=== PATIENT | male | born 1955 | race Caucasian/White ===

== ENCOUNTER 2016-06-26 11:49 | Outpatient (RCR) | payer OTHER ==
--- OUTSIDE RECORDS SUMMARY | 2016-04-23 11:00 | XMS REPORT | Continuity of Care Document ---
Author Author [facility] Organization [facility] Address Unknown Phone Unavailable Care Team Providers Care Reimbursement Auditor Name Role Phone Tish Cox PCP [phone] Source Comments Some departments are not documenting in the electronic medical record. If you do not see the information that you expected, contact Release of Information in the Health Information Management department at [phone] for further assistance in locating additional records.[facility] Active Allergies and Adverse Reactions Allergen Noted Date Severity Reactions Comments Amoxicillin (Bulk) 12/17/2010 Low STOMACH UPSET, NAUSEA AND Pt reported able to VOMITING tolerate for short term Current Medications Prescription Sig. Disp. Refills Start End Date Status Date budesonide/formoterol,+, Inhale 2 Puffs by mouth Active (SYMBICORT) 160/4.5 mcg twice daily. HFAA inhalation ipratropium/albuterol Inhale 2 Puffs by mouth Active (COMBIVENT) 103/18 As Needed for Wheezing. mcg/Actuation inhaler MULTIVITAMIN Take 1 Tab by mouth Active W-MINERALS/LUTEIN daily. (CENTRUM SILVER PO) albuterol (ACCUNEB) 0.63 Inhale 0.63 mg solution Active mg/3 mL nebulizer as directed every 6 hours solution as needed. zolpidem (AMBIEN) 5 mg Take 5 mg by mouth at Active tablet bedtime as needed. fluticasone (FLONASE) 50 Apply 2 Sprays to each 3 Inhaler 3 07/28/19 Active mcg/actuation nasal spray nostril as directed 15 daily. predniSONE (DELTASONE) 1 Take 1 Tab by mouth 60 Tab 1 11/02/19 Active mg tablet daily. To be taken with 15 other 5mg prednisone tablets. Will taper from 15mg by 1mg every 2 weeks to a goal of 10mg daily LORATADINE (CLARITIN PO) Take 1 Tab by mouth daily Active as needed. ERGOCALCIFEROL (VITAMIN Take 2 Units by mouth Active D2) (VITAMIN D PO) daily. acetaminophen (TYLENOL) Take 500 mg by mouth Active 500 mg tablet every 6 hours as needed for Pain. pantoprazole DR Take 40 mg by mouth Active (PROTONIX) 40 mg tablet daily. potassium chloride(+) Take 16 mEq by mouth Active (KLOR-CON 8) 8 mEq tablet daily. omalizumab(+) (XOLAIR) Inject into area(s) as Active 150 mg injection directed every 14 days. lisinopril-hydrochlorothi Take 1 Tab by mouth Active azide (PRINZIDE, daily. ZESTORETIC) 20-25 mg tablet HYDROcodone/acetaminophen Take 1-2 Tabs by mouth Active (NORCO; VICODIN) 5-325 mg every 8 hours as needed tablet for Pain (Pt reports that he is taking 2 tabs total per day) immune globulin 10% 25 grams IV daily for 25 g 6 10/13/19 Active (GAMUNEX) 10 g/100 mL in four days, then every 4 16 0 mL IV infusion weeks for 3 months. fluticasone (FLOVENT HFA) Inhale 2 Puffs by mouth Active 110 mcg/actuation inhaler into the lungs twice daily. teriparatide(+) (FORTEO) Inject 20 mcg under the Active 20 mcg/dose - 600 mcg/2.4 skin daily. mL pnij injection pen baclofen (LIORESAL) 10 mg Take 10 mg by mouth three Active tablet times daily as needed. CALCIUM PO Take 2 Tabs by mouth Active daily. amitriptyline (ELAVIL) 10 Take 1 Tab by mouth at 30 Tab 2 03/11/20 Active mg tablet bedtime as needed. 16 voriconazole (VFEND) 200 Take 1 Tab by mouth twice 60 Tab 7 08/21/19 04/17/20 mg tablet daily for 240 days. 16 16 Hospital, Clinic, or Ordered Dose Route Frequency Start End Date Status Other Facility Date Administered Medication omalizumab (XOLAIR) 225MG SC Q14 Days 10/15/19 Active injection 225 mg 15 Active Problems Problem Noted Date Compression fracture 05/11/2015 Shortness of breath 05/11/2015 GI bleed 09/30/2014 Sepsis (HCC) 2014 Disseminated histoplasmosis 2014 Acute respiratory failure (HCC) 04/02/2014 Pancytopenia (HCC) 03/31/2014 Osteoarthritis 03/21/2011 Paraesthesia of skin 03/19/2011 alf current use of systemic steroids 03/19/2011 Joint pain 12/17/2010 Encounter for long-term (current) use of high-risk medication 12/17/2010 Encounter for long-term (current) use of steroids 12/17/2010 Vasculitis (HCC) 12/17/2010 Peripheral edema 12/17/2010 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 Most Recent Encounters Date Type Specialty Providers Description 04/19/2016 Orders Only Allergy,Immunology and Felipe Mancia MD Rheumatology 04/19/2016 Orders Only Allergy,Immunology and Pedro Feldman MD Vasculitis ([facility]) Rheumatology 04/12/2016 Telephone Allergy,Immunology and Felipe Mancia MD Records Request - paper Rheumatology chart [facility] 04/11/2016 [facility] Felipe Mancia MD Arteritis, unspecified Encounter 04/11/2016 Office Visit Allergy,Immunology and Felipe Mancia MD Vasculitis ([facility]) (Primary Rheumatology Dx); Osteopenia; 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HCC); Encounter for long-term (current) use of high-risk medication; Disseminated histoplasmosis 04/08/2016 Outpt. Infectious Diseases Tyshawn Putnam MD Antibiotic Therapy 03/29/2016 Outpt. Infectious Diseases Tyshawn Putnam MD Antibiotic Therapy 03/25/2016 Telephone Allergy,Immunology and Zara Flores APRN Infusion Therapy Rheumatology 03/20/2016 Telephone Allergy,Immunology and Felipe Mancia MD Prior Authorization - Rheumatology [facility] 03/14/2016 Outpt. Infectious Tyshawn Wong MD Antibiotic Therapy 03/12/2016 Telephone Allergy,Immunology and Felipe Mancia MD Infusion Therapy - IVIG; Rheumatology 03/11/2016 Office Visit Infectious Tyshawn Wong MD Disseminated histoplasmosis (Primary Dx); 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HCC); Compression fracture; Encounter for long-term (current) use of antibiotics 03/01/2016 Telephone Allergy,Immunology and Felipe Mancia MD Infusion Therapy - IVIG Rheumatology 02/26/2016 Telephone Allergy,Immunology and Felipe Mancia MD Infusion Therapy; Rheumatology 02/08/2016 Telephone AllergyImmunology and Felipe Mancia MD Infusion Therapy - IVIG Rheumatology 01/25/2016 Outpt. Infectious Diseases Tyshawn Putnam MD Antibiotic Therapy 01/23/2016 Outpt. Infectious Diseases Tyshawn Putnam MD Antibiotic Therapy Immunizations Name Dates Previously Given Next Due Pneumococcal Vaccine 07/28/2014 (23-Guerita Adult) Pneumococcal 06/01/2013 Vaccine(13-Gu[facility] Peds/immunocompromised adult) Social History Tobacco Use Types Packs/Day Years Used Date Former Smoker Cigarettes 0.5 20 Quit: 06/30/1993 Smokeless Tobacco: Never Used Alcohol Use Drinks/Week oz/Week Comments No 0 Standard 0.0 drinks or equivalent Last Filed Vital Signs Vital Sign Reading Time Taken Blood Pressure 122/80 04/11/2016 9:58 AM CDT Pulse 118 04/11/2016 9:58 AM CDT Temperature 36.7 C (98 F) 04/11/2016 9:58 AM CDT Respiratory Rate 20 04/11/2016 9:58 AM CDT Height 1.778 m (5' 10") 04/11/2016 9:58 AM CDT Weight 94.802 kg (209 lb) 04/11/2016 9:58 AM CDT Body Mass Index 29.99 04/11/2016 9:58 AM CDT Oxygen Saturation 95% 10/03/2014 2:30 PM CDT Plan of Care Date Type Specialty Providers Description 07/02/2016 Appointment Endocrinology, Metabolism & Genetics 08/02/2016 Appointment Allergy,Immunology and Felipe Mancia MD Rheumatology [address] [place] [address] [phone] 08/12/2016 Appointment Infectious Diseases Tyshawn Putnam MD [address] [facility] [address] [place] [address] [phone] (Fax) Health Maintenance Due Date Last Done Comments Hepatitis C Screening 1955 Physical (Comprehensive) 1962 Exam Pertussis Vaccine 1966 Tetanus Vaccine 1972 Colorectal Cancer 2005 Screening Shingles Vaccine 2015 Influenza Vaccine 02/29/2016 Results from Last 3 Months 2-D + DOPPLER ECHOCARDIOGRAM (04/16/2016)CBC AND DIFF (04/11/2016 1:13 PM) Component Value Range White Blood Cells 13.3 (H) 4.5-11.0 K/UL RBC 4.23 (L) 4.4-5.5 M/UL Hemoglobin 12.1 (L) 13.5-16.5 GM/DL Hematocrit 36.1 (L) 40-50 % MCV 85.3 80-100 FL MCH 28.6 26-34 PG MCHC 33.5 32.0-36.0 G/DL RDW 16.0 (H) 11-15 % Platelet Count 213 150-400 K/UL MPV 7.4 7-11 FL Neutrophils 82 (H) 41-77 % Lymphocytes 11 (L) 24-44 % Monocytes 7 4-12 % Eosinophils 0 0-5 % Basophils 0 0-2 % Absolute Neutrophil Count 10.90 (H) 1.8-7.0 K/UL Absolute Lymph Count 1.50 1.0-4.8 K/UL Absolute Monocyte Count 0.90 (H) 0-0.80 K/UL Absolute Eosinophil Count 0.00 0-0.45 K/UL Absolute Basophil Count 0.00 0-0.20 K/UL Specimen Blood C REACTIVE PROTEIN (CRP) (04/11/2016 1:13 PM) Component Value Range C-Reactive Protein 1.55 (H) <1.0 MG/DL Specimen Blood SED RATE (04/11/2016 1:13 PM) Component Value Range Sed Rate -ESR 66 (H) 0-20 MM/HR Specimen Blood POC URINE DIPSTICK AUTO READ (04/09/2016) Component Value Range Urine Glucose POC 100 Urine Bilirubin POC negative Urine Ketone POC negative Urine Specific [place] 1.025 POC Urine Blood POC negative Urine PH POC 5 Urine Protein POC negative Urine Urobilinogen POC 1 mg/dL Urine Nitrite POC negative Urine Leukocytes POC negative Specimen Urine, clean catch - Urine BUN (03/27/2016 9:36 AM)Only the most recent of 2 results within the time period is included. Component Value Range Blood Urea Nitrogen 32 Specimen Blood ALT (SGPT) (03/27/2016 9:36 AM)Only the most recent of 2 results within the time period is included. Component Value Range ALT (SGPT) 31 Specimen Blood AST (SGOT) (03/27/2016 9:36 AM)Only the most recent of 2 results within the time period is included. Component Value Range AST (SGOT) 22 Specimen Blood POTASSIUM (03/27/2016 9:36 AM)Only the most recent of 2 results within the time period is included. Component Value Range Potassium 4.9 Specimen Blood ALK PHOS TOTAL (03/27/2016 9:36 AM)Only the most recent of 2 results within the time period is included. Component Value Range Alk Phosphatase 99 Specimen Blood CREATININE (03/27/2016 9:36 AM)Only the most recent of 2 results within the time period is included. Component Value Range Creatinine 1.2 Specimen Blood VORICONAZOLE, SERUM (03/27/2016)Only the most recent of 3 results within the time period is included. Specimen Blood HISTOPLASMA AG, SERUM (03/27/2016)Only the most recent of 3 results within the time period is included. Specimen Blood
[2016-04-23 11:34] LABS: BILIRUBIN,TOTAL 0.4 MG/DL (0.1-1.0); CALCIUM 9.6 MG/DL (8.5-10.1); CREATININE SERUM 1.53 MG/DL (0.60-1.30); POTASSIUM 4.4 MMOL/L (3.6-5.0); TOTAL PROTEIN 8.5 G/DL (6.4-8.2)
[2016-04-29 06:32] LABS: HISTOPLASMA AG SERUM 1.42 ng/mL (0.00-0.00)
[2016-05-29 11:20] LABS: ALBUMIN 4.3 G/DL (3.2-4.5); BILIRUBIN,TOTAL 0.4 MG/DL (0.1-1.0); CALCIUM 9.8 MG/DL (8.5-10.1); CREATININE SERUM 1.43 MG/DL (0.60-1.30); POTASSIUM 4.5 MMOL/L (3.6-5.0); TOTAL PROTEIN 7.7 G/DL (6.4-8.2)
[2016-06-05 15:11] LABS: HISTOPLASMA AG SERUM Positive (None Detected)
[2016-06-10 16:12] LABS: VORICONAZOLE QT 2.6 UG/ML (1.0-6.0)
[~2016-06-26 11:49] MED LIST: ALBU0.632 IH; BRIM5DRO12 OU; BUDE6HFA INH; DXCC100C PO; FAMO20TA13 PO; FAMO20TA17 PO; FLT4413 INH; GUAI120L56 PO; IPRA4AER INH; LACT1CAP71 PO; LEVO500T69 PO; LOPE2CAP PO; MULT-974 PO; MYCO500T PO; PRD20T PO; PRED10TA PO; PRED5TAB PO; RT-FLOV110 INH; TEST1PAT7 TD; [UNRECOGNIZED DRUG - OTHER] IV
[2016-06-26 12:24] LABS: ALANINE AMINOTRANSFERASE 23 U/L (0-55); ALBUMIN 4.1 G/DL (3.2-4.5); ANION GAP 11 MMOL/L (5-14); ASPARTATE AMINO TRANSFERASE 20 U/L (5-34); BILIRUBIN,TOTAL 0.4 MG/DL (0.1-1.0); BLOOD UREA NITROGEN 23 MG/DL (7-18); BUN/CREATININE RATIO 21; CALCIUM 9.4 MG/DL (8.5-10.1); CARBON DIOXIDE 26 MMOL/L (21-32); CHLORIDE 100 MMOL/L (98-107); CREATININE SERUM 1.12 MG/DL (0.60-1.30); GFR ESTIMATED > 60; GLUCOSE 124 MG/DL (70-105); POTASSIUM 4.6 MMOL/L (3.6-5.0); SODIUM 137 MMOL/L (135-145); TOTAL PROTEIN 7.3 G/DL (6.4-8.2)
[2016-07-02 07:42] LABS: VORICONAZOLE QT 2.2 UG/ML (1.0-6.0)
[2016-07-02 08:01] LABS: HISTOPLASMA AG SERUM Positive (None Detected)
== END 2016-07-22 | disposition home or self-care (01) ==
LOC: LAB 11:49
PROVIDERS: ATTEND Internal Medicine Infectious Disease
DX: B39.9 Histoplasmosis, unspecified (principal); Z79.2 Long term (current) use of antibiotics
CPT/HCPCS: 36415; 80053; 80299; 87385

== ENCOUNTER 2016-07-16 09:19 | Outpatient (RCR) | payer OTHER ==
--- OUTSIDE RECORDS SUMMARY | 2016-04-23 11:14 | XMS REPORT | Continuity of Care Document ---
Author Author [facility] Organization [facility] Address Unknown Phone Unavailable Care Team Providers Care Wrapper Counter Name Role Phone Tish Cox PCP [phone] Source Comments Some departments are not documenting in the electronic medical record. If you do not see the information that you expected, contact Release of Information in the Health Information Management department at [phone] for further assistance in locating additional records.[facility] Active Allergies and Adverse Reactions Allergen Noted [...] 03/31/2014 Osteoarthritis 03/21/2011 Paraesthesia of skin 03/19/2011 senior living current use of systemic steroids 03/19/2011 Joint pain 12/17/2010 Encounter for long-term (current) use of high-risk medication 12/17/2010 Encounter for long-term (current) use of steroids 12/17/2010 Vasculitis (HCC) 12/17/2010 Peripheral edema 12/17/2010 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 Felipe Mancia MD Arteritis, unspecified Encounter 04/11/2016 Office Visit Allergy,Immunology and Felipe Mancia MD Vasculitis ([facility]) (Primary Rheumatology Dx); Osteopenia; 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HCC); [...] Allergy,Immunology and Felipe Mancia MD Rheumatology [address] [place] [address] [phone] 08/12/2016 Appointment Infectious Diseases Tyshawn Putnam MD [address] [facility] [address] [place] [address] [phone] (Fax) Health Maintenance Due Date Last Done [...] negative Urine Ketone POC negative Urine Specific [place] 1.025 POC Urine Blood POC negative Urine [...]
[2016-04-23] MEDS: OMALIZUMAB SUB-Q 150 MG (XOLAIR) VIAL SQ SCH (12:15)
[2016-04-23 13:02] VITALS: BP 127/77
[2016-05-07] MEDS: OMALIZUMAB SUB-Q 150 MG (XOLAIR) VIAL SQ SCH (10:20)
[2016-05-07 11:09] VITALS: BP 150/83
[2016-05-21 10:33] VITALS: BP 123/79
[2016-05-21] MEDS: OMALIZUMAB SUB-Q 150 MG (XOLAIR) VIAL SQ SCH (10:44)
[2016-06-04] MEDS: OMALIZUMAB SUB-Q 150 MG (XOLAIR) VIAL SQ SCH (10:45)
[2016-06-04 10:49] VITALS: BP 144/94
[2016-06-18] MEDS: OMALIZUMAB SUB-Q 150 MG (XOLAIR) VIAL SQ SCH (10:17)
[2016-06-18 10:39] VITALS: BP 105/77
[2016-07-03] MEDS: OMALIZUMAB SUB-Q 150 MG (XOLAIR) VIAL SQ SCH (11:40)
[2016-07-03 11:46] VITALS: BP 114/85
[~2016-07-16] VITALS: Ht 177.8 cm; Wt 102.5 kg
[2016-07-16] MEDS ORDERED: OMALIZUMAB SUB-Q 150 MG (XOLAIR) VIAL SQ SCH (09:30)
[2016-07-16 10:04] VITALS: BP 117/73
== END 2016-07-22 | disposition home or self-care (01) ==
LOC: SDC 09:19
PROVIDERS: ATTEND Internal Medicine Critical Care Medicine
DX: M31.30 Wegener's granulomatosis without renal involvement (principal); R91.1 Solitary pulmonary nodule; E66.9 Obesity, unspecified; D61.818 Other pancytopenia; R94.5 Abnormal results of liver function studies
CPT/HCPCS: 96372

== ENCOUNTER → 2016-08-05 | Outpatient (CLI) | payer OTHER ==
--- OUTSIDE RECORDS SUMMARY | 2016-08-05 09:52 | XMS REPORT | Continuity of Care Document ---
Author Author [facility] Organization [facility] Address Unknown Phone Unavailable Care Team Providers Care Roll Up Machine Operator Name Role Phone Tish Cox PCP [phone] Source Comments Some departments are not documenting in the electronic medical record. If you do not see the information that you expected, contact Release of Information in the Health Information Management department at [phone] for further assistance in locating additional records.[facility] Active Allergies and Adverse Reactions Allergen [...] 2014 Disseminated histoplasmosis 2014 Acute respiratory failure ([facility]) 04/02/2014 Pancytopenia ([facility]) 03/31/2014 Osteoarthritis 03/21/2011 Paraesthesia of skin 03/19/2011 senior care current use of systemic steroids 03/19/2011 Joint pain 12/17/2010 Encounter for long-term (current) use of high-risk medication 12/17/2010 Encounter for long-term (current) use of steroids 12/17/2010 Vasculitis ([facility]) 12/17/2010 Peripheral edema 12/17/2010 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 Tyshawn Maloney MD Antibiotic Therapy 06/13/2016 Telephone Tyshawn Maloney MD Outpatient Antibiotic Therapy (Opat) 06/11/2016 Telephone Allergy,Immunology and Felipe Mancia MD Infusion Therapy - IVIG; Rheumatology 06/07/2016 Outpt. Tyshawn Maloney MD Antibiotic Therapy 06/05/2016 Outpt. Tyshawn Maloney MD Antibiotic Therapy 05/29/2016 Telephone Tyshawn Maloney MD Medication Question 05/28/2016 Telephone Tyshawn Maloney MD Prior Authorization 05/11/2016 Outpt. Tyshawn Maloney MD Antibiotic Therapy 05/10/2016 Telephone Allergy,Immunology and Felipe Mancia MD Home Health Patient Rheumatology Update Immunizations Name Dates Previously Given Next Due Pneumococcal Vaccine 08/02/2016, 07/28/2014 (23-Guerita Adult) Pneumococcal 06/01/2013 Vaccine(13-Guerita Peds/immunocompromised adult) Social History Tobacco Use Types Packs/Day Years Used Date Former Smoker Cigarettes 0.5 20 Quit: 06/30/1993 Smokeless Tobacco: Never Used Alcohol Use Drinks/Week oz/Week Comments No 0 Standard 0.0 drinks or equivalent Last Filed Vital Signs Vital Sign Reading Time Taken Blood Pressure 126/81 08/02/2016 10:09 AM CONSTRUCTION MANAGEMENT INSTRUCTOR Pulse 92 08/02/2016 10:09 AM CONSTRUCTION MANAGEMENT INSTRUCTOR Temperature 36.6 C (97.9 F) 08/02/2016 10:09 AM CONSTRUCTION MANAGEMENT INSTRUCTOR Respiratory Rate 18 08/02/2016 10:09 AM CONSTRUCTION MANAGEMENT INSTRUCTOR Height 1.778 m (5' 10") 08/02/2016 10:09 AM CONSTRUCTION MANAGEMENT INSTRUCTOR Weight 92.534 kg (204 lb) 08/02/2016 10:09 AM CONSTRUCTION MANAGEMENT INSTRUCTOR Body Mass Index 29.27 08/02/2016 10:09 AM CONSTRUCTION MANAGEMENT INSTRUCTOR Oxygen Saturation 95% 10/03/2014 2:30 PM CDT Plan of Care Date Type Specialty Providers Description 08/12/2016 Appointment Infectious Diseases Tyshawn Putnam MD [address] [place] [address] [phone] (Fax) 10/28/2016 Appointment Allergy,Immunology and LarimerFelipe gunderson MD Rheumatology [address] [place] [address] [phone] Health Maintenance Due Date Last Done Comments Hepatitis C Screening 1955 Physical (Comprehensive) 1962 Exam Pertussis Vaccine 1966 Tetanus Vaccine 1972 Colorectal Cancer 2005 Screening Shingles Vaccine 2015 Influenza Vaccine 02/29/2016 Results from Last 3 Months URINALYSIS, MICROSCOPIC (08/02/2016 12:42 PM) Component Value Range WBCs,UA 0-2 0-2 /HPF RBCs,UA 0-2 0-3 /HPF Specimen Urine URINALYSIS DIPSTICK (08/02/2016 12:42 PM) Component Value Range Color,UA YELLOW Turbidity,UA CLEAR CLEAR-CLEAR Specific [place]-Urine 1.024 1.003-1.035 pH,UA 7.0 5.0-8.0 Protein,UA 1+ (A) NEG-NEG Glucose,UA 2+ (A) NEG-NEG Ketones,UA NEG NEG-NEG Bilirubin,UA NEG NEG-NEG Blood,UA NEG NEG-NEG Urobilinogen,UA NORMAL NORM-NORMAL Nitrite,UA NEG NEG-NEG Leukocytes,UA NEG NEG-NEG Urine Ascorbic Acid, UA NEG NEG-NEG Specimen Urine PROTEIN/CR RATIO,UR RAN (08/02/2016 12:40 PM) Component Value Range Protein, Random 33 MG/DL Creatinine, Random 166 MG/DL Protein/CR ratio 0.2 Specimen Urine COMPREHENSIVE METABOLIC PANEL (08/02/2016 12:40 PM) Component Value Range Sodium 139 137-147 MMOL/L Potassium 4.6 3.5-5.1 MMOL/L Chloride 100 98-110 MMOL/L Glucose 117 (H) 70-100 MG/DL Blood Urea Nitrogen 25 7-25 MG/DL Creatinine 1.21 0.4-1.24 MG/DL Calcium 10.0 8.5-10.6 MG/DL Total Protein 7.7 6.0-8.0 G/DL Total Bilirubin 0.4 0.3-1.2 MG/DL Albumin 4.0 3.5-5.0 G/DL Alk Phosphatase 75 25-110 U/L AST (SGOT) 17 7-40 U/L CO2 29 21-30 MMOL/L ALT (SGPT) 19 7-56 U/L Anion Gap 10 3-12 eGFR Non >60Comment: >60 mL/min The eGFR is not validated for use in drug dosing adjustments. Continue to use estimated creatinine clearance per dosing reference text. Please contact the Clinical Pharmacist for questions. eGFR >60Comment: >60 mL/min The eGFR is not validated for use in drug dosing adjustments. Continue to use estimated creatinine clearance per dosing reference text. Please contact the Clinical Pharmacist for questions. Specimen Blood CBC AND DIFF (08/02/2016 12:40 PM) Component Value Range White Blood Cells 17.7 (H) 4.5-11.0 K/UL RBC 4.43 4.4-5.5 M/UL Hemoglobin 12.7 (L) 13.5-16.5 GM/DL Hematocrit 38.1 (L) 40-50 % MCV 85.9 80-100 FL MCH 28.7 26-34 PG MCHC 33.4 32.0-36.0 G/DL RDW 15.8 (H) 11-15 % Platelet Count 273 150-400 K/UL MPV 7.2 7-11 FL Neutrophils 86 (H) 41-77 % Lymphocytes 10 (L) 24-44 % Monocytes 4 4-12 % Eosinophils 0 0-5 % Basophils 0 0-2 % Absolute Neutrophil Count 15.10 (H) 1.8-7.0 K/UL Absolute Lymph Count 1.80 1.0-4.8 K/UL Absolute Monocyte Count 0.60 0-0.80 K/UL Absolute Eosinophil Count 0.00 0-0.45 K/UL Absolute Basophil Count 0.10 0-0.20 K/UL Specimen Blood C REACTIVE PROTEIN (CRP) (08/02/2016 12:40 PM) Component Value Range C-Reactive Protein 0.71 <1.0 MG/DL Specimen Blood SED RATE (08/02/2016 12:40 PM) Component Value Range Sed Rate -ESR 38 (H) 0-20 MM/HR Specimen Blood HISTOPLASMA AG, SERUM (06/26/2016)Only the most recent [...]
--- NOTE | 2016-08-05 11:11 | Diagnostic Imaging Report ---
PROCEDURE: CT chest without contrast. TECHNIQUE: Multiple contiguous axial images were obtained through the chest without the use of intravenous contrast. INDICATION: Followup pulmonary nodule. FINDINGS: There is an 8mm pulmonary nodule in the left upper lobe, image 18 stable from 07/14/2015 and with stability from 2014 exam compatible with benign etiology. There is no significant consolidation, mass or suspicious nodule seen otherwise. There is no mediastinal mass. There is no mediastinal lymphadenopathy. No hilar mass or lymphadenopathy is identified. The axilla demonstrate no mass lesion. Sections in the upper abdomen appear unremarkable. The osseous structures demonstrate kyphoplasty changes in the mid and lower thoracic spine and in the upper lumbar vertebra visualized. IMPRESSION: Stable 8mm nodule in the left upper lobe from 2014 exam compatible with benign etiology. Dictated by: Dictated on workstation # [id number]
== END ==
LOC: RAD 09:47
PROVIDERS: ATTEND Nurse Practitioner Family
DX: R91.1 Solitary pulmonary nodule (principal); M30.1 Polyarteritis with lung involvement [Churg-Strauss]
CPT/HCPCS: 71250

== ENCOUNTER 2016-08-13 11:16 | Outpatient (RCR) | payer OTHER ==
--- OUTSIDE RECORDS SUMMARY | 2016-07-30 10:10 | XMS REPORT | Continuity of Care Document ---
Author Author [facility] Organization [facility] Address Unknown Phone Unavailable Care Team Providers Care Lumber Tailer Name Role Phone Tish Cox PCP [phone] Source Comments Some departments are not documenting in the electronic medical record. If you do not see the information that you expected, contact Release of Information in the Health Information Management department at [phone] for further assistance in locating additional records.[facility] Active Allergies and Adverse Reactions Allergen [...] 1 Tab by mouth twice 60 Tab 5 05/29/20 01/25/20 Active mg tablet daily for 240 days. 16 17 Hospital, Clinic, or Ordered Dose Route Frequency Start End Date Status Other Facility Date Administered Medication omalizumab (XOLAIR) 225mg SC Q14 Days 10/15/19 Active injection 225 mg 15 Active Problems Problem Noted Date Compression fracture 05/11/2015 Shortness of breath 05/11/2015 GI bleed 09/30/2014 Sepsis (HCC) 2014 Disseminated histoplasmosis 2014 Acute respiratory failure ([facility]) 04/02/2014 Pancytopenia ([facility]) 03/31/2014 Osteoarthritis 03/21/2011 Paraesthesia of skin 03/19/2011 long-term current use of systemic steroids 03/19/2011 Joint pain 12/17/2010 Encounter for long-term (current) use of high-risk medication 12/17/2010 Encounter for long-term (current) use of steroids 12/17/2010 Vasculitis ([facility]) 12/17/2010 Peripheral edema 12/17/2010 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 Infectious Diseases Tyshawn Putnam MD Antibiotic Therapy 06/13/2016 Telephone Tyshawn Maloney MD Outpatient Antibiotic Therapy (Opat) 06/11/2016 Telephone AllergyImmunology and Felipe Mancia MD Infusion Therapy - IVIG; Rheumatology 06/07/2016 Outpt. Infectious Tyshawn Wong MD Antibiotic Therapy 06/05/2016 Outpt. Infectious Tyshawn Wong MD Antibiotic Therapy 05/29/2016 Telephone Tyshawn Maloney MD Medication Question 05/28/2016 Telephone Tyshawn Maloney MD Prior Authorization 05/11/2016 Outpt. Infectious Tyshawn Wong MD Antibiotic Therapy 05/10/2016 Telephone Allergy,Immunology and Felipe Mancia MD Home Health Patient Rheumatology Update 05/02/2016 Telephone Allergy,Immunology and Felipe Mancia MD Infusion Therapy - IVIG Rheumatology Immunizations Name Dates Previously Given Next Due [...] of Care Date Type Specialty Providers Description 08/02/2016 Appointment Endocrinology, Metabolism & Genetics 08/02/2016 Appointment Allergy,Immunology and [place] gund[place] MD Rheumatology [address] [place] [address] [phone] 08/12/2016 Appointment Infectious Diseases Tyshawn Putnam MD [address] [place] [address] [phone] (Fax) Health Maintenance Due Date Last Done Comments Hepatitis C Screening 1955 Physical (Comprehensive) 1962 Exam Pertussis Vaccine 1966 Tetanus Vaccine 1972 Colorectal Cancer 2005 Screening Shingles Vaccine 2015 Influenza Vaccine 02/29/2016 Results from Last 3 Months HISTOPLASMA AG, SERUM (06/26/2016)Only the most recent of 2 results within the time period is included. Specimen Blood VORICONAZOLE LC-MS/MS (06/26/2016) Component Value Range Voriconazole, Serum 2.2 Specimen Blood BUN (06/26/2016)Only the most recent of 2 results within the time period is included. Component Value Range Blood Urea Nitrogen 23 Specimen Blood ALT (SGPT) (06/26/2016)Only the most recent of 2 results within the time period is included. Component Value Range ALT (SGPT) 123 Specimen Blood AST (SGOT) (06/26/2016)Only the most recent of 2 results within the time period is included. Component Value Range AST (SGOT) 20 Specimen Blood POTASSIUM (06/26/2016)Only the most recent of 2 results within the time period is included. Component Value Range Potassium 4.6 Specimen Blood ALK PHOS TOTAL (06/26/2016)Only the most recent of 2 results within the time period is included. Component Value Range Alk Phosphatase 93 Specimen Blood CREATININE (06/26/2016)Only the most recent of 2 results within the time period is included. Component Value Range Creatinine 1.12 Specimen Blood
[2016-07-30] MEDS: OMALIZUMAB SUB-Q 150 MG (XOLAIR) VIAL SQ SCH (10:55)
[2016-07-30 11:30] VITALS: BP 117/78
[2016-08-02 07:48] LABS: HISTOPLASMA AG SERUM Positive (None Detected)
[2016-08-05 07:50] LABS: VORICONAZOLE QT 1.9 UG/ML (1.0-6.0)
[~2016-08-13] VITALS: Ht 177.8 cm; Wt 102.5 kg
[2016-08-13] MEDS: OMALIZUMAB SUB-Q 150 MG (XOLAIR) VIAL SQ SCH (12:13)
[2016-08-13 12:17] VITALS: BP 119/78
== END 2016-10-28 | disposition home or self-care (01) ==
LOC: SDC 11:16
PROVIDERS: ATTEND Internal Medicine Critical Care Medicine
DX: J45.998 Other asthma (principal); M30.1 Polyarteritis with lung involvement [Churg-Strauss]; R91.1 Solitary pulmonary nodule; G47.33 Obstructive sleep apnea (adult) (pediatric); E66.9 Obesity, unspecified; Z68.32 Body mass index [BMI] 32.0-32.9, adult
CPT/HCPCS: 36415; 80299; 87385; 96372

== ENCOUNTER → 2016-08-13 | Outpatient (CLI) | payer OTHER ==
--- OUTSIDE RECORDS SUMMARY | 2016-08-13 11:51 | XMS REPORT | Continuity of Care Document ---
Author Author [facility] Organization [facility] Address Unknown Phone Unavailable Care Team Providers Care System Software Developer Name Role Phone Tish Cox PCP [phone] Source Comments Some departments are not documenting in the electronic medical record. If you do not see the information that you expected, contact Release of Information in the Health Information Management department at [phone] for further assistance in locating additional records.[facility] Active Allergies and Adverse Reactions Allergen [...] mouth at Active tablet bedtime as needed. predniSONE (DELTASONE) 1 Take 1 Tab by mouth 60 Tab 1 11/02/19 Active mg tablet daily. To be taken with 15 other 5mg prednisone tablets. Will taper from 15mg by 1mg every 2 weeks to a goal of 10mg daily LORATADINE (CLARITIN PO) Take 1 Tab by mouth daily Active as needed. acetaminophen (TYLENOL) Take 500 mg by mouth [...] mL IV infusion weeks for 3 months. teriparatide(+) (FORTEO) Inject 20 mcg under the Active 20 mcg/dose - 600 mcg/2.4 skin daily. mL pnij injection pen baclofen (LIORESAL) 10 mg Take 10 mg by mouth three Active tablet times daily as needed. CALCIUM PO Take 2 Tabs by mouth Active daily. voriconazole (VFEND) 200 Take 1 Tab by mouth twice 60 Tab 5 05/29/20 01/25/20 Active mg tablet daily for 240 days. 16 17 vitamins, B complex tab Take 1 Tab by mouth Active daily. Testosterone (ANDRODERM) Apply 1 Patch to top of Active 4 mg/24 hr pt24 skin as directed. CALCIUM CARBONATE/VITAMIN Take 2,700 Int'l Units by Active D3 (VITAMIN D-3 PO) mouth. fluticasone (FLONASE) 50 Apply 2 Sprays to each 3 Inhaler 3 07/28/19 08/12/19 Discontin mcg/actuation nasal spray nostril as directed 15 17 ued daily. ERGOCALCIFEROL (VITAMIN Take 2 Units by mouth 08/12/19 Discontin D2) (VITAMIN D PO) daily. 17 ued fluticasone (FLOVENT HFA) Inhale 2 Puffs by mouth 08/12/19 Discontin 110 mcg/actuation inhaler into the lungs twice 17 ued daily. amitriptyline (ELAVIL) 10 Take 1 Tab by mouth at 30 Tab 2 03/11/20 08/12/19 Discontin mg tablet bedtime as needed. 16 17 [facility], or Ordered Dose Route Frequency Start End Date Status Other Facility Date Administered Medication omalizumab (XOLAIR) 225mg SC Q14 Days 10/15/19 Active injection 225 mg 15 Active Problems Problem Noted Date Compression fracture 05/11/2015 Shortness of breath 05/11/2015 GI bleed 09/30/2014 Sepsis ([facility]) 2014 Disseminated histoplasmosis 2014 Acute respiratory failure ([facility]) 04/02/2014 Pancytopenia ([facility]) 03/31/2014 Osteoarthritis 03/21/2011 Paraesthesia of skin 03/19/2011 [facility] current use of systemic steroids 03/19/2011 Joint pain 12/17/2010 Encounter for long-term (current) use of high-risk medication 12/17/2010 Encounter for long-term (current) use of steroids 12/17/2010 Vasculitis ([facility]) 12/17/2010 Peripheral edema 12/17/2010 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 Most Recent Encounters Date Type Specialty Providers Description 08/12/2016 Office Visit Infectious Diseases Tyshawn Putnam MD Arrived 08/07/2016 Telephone Allergy,Immunology and Felipe Mancia MD Infusion Therapy - Rheumatology [facility]; 08/02/2016 [facility] Zenon Turner MD Polyarteritis with lung Encounter involvement (churg-kunal) ([facility]) 08/02/2016 Office Visit Allergy,Immunology and Felipe Mancia MD Encounter for long-term Rheumatology (current) use of high-risk medication (Primary Dx); 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 Infectious Tyshawn Wong MD Antibiotic Therapy 06/13/2016 Telephone Infectious Tyshawn Wong MD Outpatient Antibiotic Therapy ([facility]) 06/11/2016 Telephone Allergy,Immunology and Felipe Mancia MD Infusion Therapy - IVIG; Rheumatology 06/07/2016 Outpt. Tyshawn Maloney R, MD Antibiotic Therapy 06/05/2016 Outpt. Infectious Diseases Tyshawn Putnam MD Antibiotic Therapy 05/29/2016 Telephone Infectious Diseases Tyshawn Putnam MD Medication Question 05/28/2016 Telephone Infectious Diseases Tyshawn Putnam MD Prior Authorization Immunizations Name Dates Previously Given Next Due Pneumococcal Vaccine 08/02/2016, 07/28/2014 (23-[facility] Adult) Pneumococcal 06/01/2013 Vaccine(13-[facility] Peds/immunocompromised adult) Social History Tobacco Use Types Packs/Day Years Used Date Former Smoker Cigarettes 0.5 20 Quit: 06/30/1993 Smokeless Tobacco: Never Used Tobacco Cessation: Counseling Given: No Comments: Alcohol Use Drinks/Week oz/Week Comments No 0 Standard 0.0 drinks or equivalent Last Filed Vital Signs Vital Sign Reading Time Taken Blood Pressure 116/68 08/12/2016 9:25 AM SLOT KEY PERSON Pulse 100 08/12/2016 9:25 AM SLOT KEY PERSON Temperature 36.7 C (98 F) 08/12/2016 9:25 AM SLOT KEY PERSON Respiratory Rate 16 08/12/2016 9:25 AM SLOT KEY PERSON Height 1.778 m (5' 10") 08/12/2016 9:25 AM SLOT KEY PERSON Weight 93.895 kg (207 lb) 08/12/2016 9:25 AM SLOT KEY PERSON Body Mass Index 29.7 08/12/2016 9:25 AM SLOT KEY PERSON Oxygen Saturation 95% 10/03/2014 2:30 PM CDT Plan of Care Date Type Specialty Providers Description 10/28/2016 Appointment Allergy,Immunology and [place] MD Rheumatology [address] [facility] [address] [place] [address] [phone] 02/03/2017 Appointment Infectious Diseases Tyshawn Putnam MD [address] [facility] [address] [place] [address] [phone] (Fax) Health Maintenance Due Date Last Done [...] Range Color,UA YELLOW Turbidity,UA CLEAR CLEAR-CLEAR Specific [place]-Urine 1.024 1.003-1.035 pH,UA 7.0 5.0-8.0 Protein,UA 1+ [...] -ESR 38 (H) 0-20 MM/HR Specimen Blood BONE DENSITY SPINE/HIP (08/02/2016)HISTOPLASMA AG, SERUM (06/26/2016)Only the most recent of [...]
[2016-08-13 12:44] LABS: PEP REPORT SEE PATH REPORT
[2016-08-13 13:02] LABS: TOTAL PROTEIN 8.5 G/DL (6.4-8.2)
[2016-08-14 04:15] LABS: LIGHT CHAIN KAPPA SERUM QUANT 24.48 mg/L (3.30-19.40); LIGHT CHAIN LAMBDA SERUM QUANT 17.23 mg/L (5.71-26.30)
[2016-08-15 12:40] LABS: CLIN PATHOLOGY REPORT FOOTNOTE; IMMUNOFIX PATH REPORT NUMBER Complete (Complete); SERUM PROTEIN ELEC DETAIL L-17-0002061
== END ==
LOC: LAB 11:46
PROVIDERS: ATTEND Internal Medicine Rheumatology
DX: M79.2 Neuralgia and neuritis, unspecified (principal)
CPT/HCPCS: 36415; 82607; 83036; 83883; 84155; 84165; 84443; 86334

== ENCOUNTER 2016-10-25 09:48 | Outpatient (RCR) | payer OTHER ==
[2016-07-30 12:00] LABS: ALBUMIN 4.1 G/DL (3.2-4.5); BILIRUBIN,TOTAL 0.4 MG/DL (0.1-1.0); CALCIUM 9.5 MG/DL (8.5-10.1); CREATININE SERUM 1.67 MG/DL (0.60-1.30); POTASSIUM 4.6 MMOL/L (3.6-5.0); TOTAL PROTEIN 7.4 G/DL (6.4-8.2)
--- OUTSIDE RECORDS SUMMARY | 2016-08-06 09:40 | XMS REPORT | Continuity of Care Document ---
Author Author [facility] Organization [facility] Address Unknown Phone Unavailable Care Team Providers Care Roofing Technician Name Role Phone Tish Cox PCP [phone] Source Comments Some departments are not documenting in the electronic medical record. If you do not see the information that you expected, contact Release of Information in the Health Information Management department at [phone] for further assistance in locating additional records.[facility] Active Allergies and Adverse Reactions Allergen [...] 2014 Disseminated histoplasmosis 2014 Acute respiratory failure ([facility]) 04/02/2014 Pancytopenia ([facility]) 03/31/2014 Osteoarthritis 03/21/2011 Paraesthesia of skin 03/19/2011 [facility] current use of systemic steroids 03/19/2011 Joint pain 12/17/2010 Encounter for long-term (current) use of high-risk medication 12/17/2010 Encounter for long-term (current) use of steroids 12/17/2010 Vasculitis ([facility]) 12/17/2010 Peripheral edema 12/17/2010 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 Most Recent Encounters Date Type Specialty Providers Description 08/02/2016 [facility] Zenon Turner MD Polyarteritis with lung Encounter involvement (churg-kunal) ([facility]) 08/02/2016 Office Visit Allergy,Immunology and Felipe Mancia MD Encounter for long-term Rheumatology (current) use of high-risk medication (Primary Dx); 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[facility]); Disseminated histoplasmosis; Need for pneumococcal vaccination 08/02/2016 [...] Taken Blood Pressure 126/81 08/02/2016 10:09 AM ACCOUNT REPRESENTATIVE Pulse 92 08/02/2016 10:09 AM ACCOUNT REPRESENTATIVE Temperature 36.6 C (97.9 F) 08/02/2016 10:09 AM ACCOUNT REPRESENTATIVE Respiratory Rate 18 08/02/2016 10:09 AM ACCOUNT REPRESENTATIVE Height 1.778 m (5' 10") 08/02/2016 10:09 AM ACCOUNT REPRESENTATIVE Weight 92.534 kg (204 lb) 08/02/2016 10:09 AM ACCOUNT REPRESENTATIVE Body Mass Index 29.27 08/02/2016 10:09 AM ACCOUNT REPRESENTATIVE Oxygen Saturation 95% 10/03/2014 2:30 PM CDT Plan of Care Date Type Specialty Providers Description 08/12/2016 Appointment Infectious Diseases Tyshawn Putnam MD [address] [place] [address] [phone] (Fax) 10/28/2016 Appointment Allergy,Immunology and [place] MD Rheumatology [address] [place] [address] [phone] Health Maintenance Due Date Last Done Comments [...] Range Color,UA YELLOW Turbidity,UA CLEAR CLEAR-CLEAR Specific [place]-Urine 1.024 1.003-1.035 pH,UA 7.0 5.0-8.0 Protein,UA 1+ [...]
[2016-09-24 12:35] LABS: ALANINE AMINOTRANSFERASE 26 U/L (0-55); ALBUMIN 3.6 G/DL (3.2-4.5); ANION GAP 10 MMOL/L (5-14); ASPARTATE AMINO TRANSFERASE 21 U/L (5-34); BILIRUBIN,TOTAL 0.5 MG/DL (0.1-1.0); BLOOD UREA NITROGEN 30 MG/DL (7-18); BUN/CREATININE RATIO 32; CALCIUM 9.1 MG/DL (8.5-10.1); CARBON DIOXIDE 29 MMOL/L (21-32); CHLORIDE 102 MMOL/L (98-107); CREATININE SERUM 0.95 MG/DL (0.60-1.30); GFR ESTIMATED > 60; GLUCOSE 67 MG/DL (70-105); POTASSIUM 4.5 MMOL/L (3.6-5.0); SODIUM 141 MMOL/L (135-145)
[2016-09-29 07:10] LABS: HISTOPLASMA AG SERUM 0.62 ng/mL (0.00-0.00)
[2016-09-29 07:25] LABS: VORICONAZOLE QT 1.1 UG/ML (1.0-6.0)
[2016-10-25 10:01] LABS: MEAN PLATELET VOLUME 9.1 FL (7.4-10.4); RED BLOOD COUNT 4.13 10^6/uL (4.35-5.85); RED CELL DISTRIBUTION WIDTH 16.6 % (10.0-14.5); WHITE BLOOD COUNT 17.2 10^3/uL (4.3-11.0)
[2016-10-25 10:27] LABS: ALBUMIN 4.1 G/DL (3.2-4.5); BILIRUBIN,TOTAL 0.7 MG/DL (0.1-1.0); CALCIUM 9.5 MG/DL (8.5-10.1); CREATININE SERUM 1.35 MG/DL (0.60-1.30); POTASSIUM 4.9 MMOL/L (3.6-5.0); TOTAL PROTEIN 7.7 G/DL (6.4-8.2)
[2016-10-30 10:13] LABS: HISTOPLASMA AG SERUM Positive (None Detected); VORICONAZOLE QT 2.2 ug/mL (1.0-6.0)
== END 2016-10-28 | disposition home or self-care (01) ==
LOC: LAB 09:48
PROVIDERS: ATTEND Internal Medicine Infectious Disease
DX: B39.9 Histoplasmosis, unspecified (principal); Z79.2 Long term (current) use of antibiotics
CPT/HCPCS: 36415; 80053; 80299; 85027; 87385

== ENCOUNTER 2016-12-18 13:00 | Emergency (ER) | payer OTHER ==
[~2016-12-18] VITALS: Ht 177.8 cm; Wt 102.5 kg
[2016-12-18] MEDS ORDERED: fentaNYL INJECTION 100 MCG/2 ML AMP IVP STA ×2 (13:52→15:47)
--- NOTE | 2016-12-18 14:27 | ED Fall/Injury ---
General Chief Complaint: Upper Extremity Stated Complaint: RT ARM INJURY//FALL Nursing Triage Note: AMB TO ROOM WITH 1 HR RN OCCUPATIONAL TRIPPED AND FELL DOWN LAST 3 BASEMENT STEPS. INJURING R SHOULDER. REPORTS MAY OF HIT HEAD,BUT NO LOC. Source: patient Exam Limitations: no limitations History of Present Illness Time seen by provider: 13:47 Initial Comments Here with report of fall when he was going down his basement steps. He is tripped on the last couple of steps and hit his right shoulder into the wall as well as his head. No loss of consciousness. Complains of significant right shoulder pain and bruising to the right upper chest wall near the axilla. Denies any significant spine pain. Does have history of compression fractures but states he feels no pain in his C-spine or back. Denies other injury. He is on chronic prednisone for 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disease. Occurred: just prior to arrival Severity: moderate Injuries/Pain Location: head, upper extremity, chest Context: tripped Loss of Consciousness: no loss of consciousness Modifying Factors: Improves With Immobilization, Worse With Movement Associated Symptoms (Fall): Denies Symptoms Allergies and Home Medications Allergies Coded Allergies: No Known Drug Allergies (Unverified , 01/15/11) Home Medications Albuterol Sulfate 0.63 Mg/3 Ml Vial.neb, 1 EACH IH Q4H PRN for SHORTNESS OF BREATH, #1 Prescribed by: ERIC ADAM on 03/04/14 0835 Amphotericin B Liposome 50 Mg/Vial Vial, 285 MG IV THREE TIMES WEEKLY, (Reported ) Brimonidine Tartrate 5 Ml Drops, 1 DROP OU BID, (Reported) Budesonide/Formoterol Fumarate 10.2 Gm Hfa.aer.ad, 2 PUFF INH BID, (Reported) Famotidine 20 Mg Tablet, 40 MG PO BID, (Reported) Fluticasone Propionate 1 Puff Puff, 1 PUFF INH BID, (Reported) Guaifenesin/Codeine Phosphate 120 Ml Liquid, 5-10 ML PO for COUGH, (Reported) Ipratropium/Albuterol Sulfate 4 Gm Aero, 0 GM INH RTQID, #60 Ref 6 Prescribed by: ERIC ADAM on 03/04/14 0836 Lactobacillus Combination No.8 1 Each Capsule, 1 EACH PO DAILY, (Reported) Loperamide Hcl 2 Mg Capsule, 2 MG PO for DIARRHEA, (Reported) Multivitamin 1 Each Tablet, 1 EACH PO DAILY, (Reported) Prednisone 10 Mg Tablet, 15 MG PO DAILY, (Reported) Testosterone 1 Each Patch.td24, 1 EACH TD DAILY, (Reported) Constitutional: see HPI, No chills, No fever Eyes: No Symptoms Reported Ears, Nose, Mouth, Throat: no symptoms reported Respiratory: see HPI, short of breath (chronic), wheezing (trace throughout) Cardiovascular: no symptoms reported, chest pain (right axilla and lateral chest) Gastrointestinal: No abdominal pain, No nausea, No vomiting Genitourinary: no symptoms reported Musculoskeletal: joint swelling, muscle pain Skin: change in color (ecchymosis reported to the right anterior tibia mid leg. ) Psychiatric/Neurological: No Symptoms Reported All Other Systems Reviewed Negative Unless Noted: Yes Past Vcpihop-Zrdobc-Rdjeeo Hx Patient Social History Alcohol Use: Denies Use Recreational Drug Use: No Smoking Status: Never a Smoker Former Smoker/When Quit: Mar 30, 1994 Recent Foreign Travel: No Contact w/Someone Who Travel: No Recent Infectious Disease Expo: No Recent Hopitalizations: No Immunizations Up To Date Tetanus Booster (TDap): Less than 5yrs Date of Pneumonia Vaccine: May 30, 2013 Surgeries HX Surgeries: Yes (nasal polyps removal) Surgeries: Eye Surgery, Orthopedic Respiratory Hx Respiratory Disorders: Yes (churgg kunal syndrome) Cardiovascular Hx Cardiac Disorders: Yes Cardiac Disorders: Hypertension Neurological Hx Neurological Disorders: Yes Neurological Disorders: Neuropathy Reproductive System Hx Reproductive Disorders: No Sexually Transmitted Disease: No HIV/AIDS: No Genitourinary Hx Genitourinary Disorders: No Gastrointestinal Hx Gastrointestinal Disorders: No Musculoskeletal Hx Musculoskeletal Disorders: Yes Endocrine Hx Endocrine Disorders: No HEENT HX ENT Disorders: Yes (nasal polyps) HEENT Disorders: Cataract Loss of Vision: Denies Hearing Impairment: Denies Cancer Hx Cancer: No Psychosocial Hx Psychiatric Problems: No Integumentary HX Skin/Integumentary Disorder: No Blood Transfusions Hx Blood Disorders: No Adverse Reaction to a Blood Tr: No Reviewed Nursing Assessment Reviewed/Agree w Nursing PMH: Yes Family Medical History Family Medial History: Arthritis 19 MOTHER Asthma 19 MOTHER Physical Exam Vital Signs Vital Sign - Last 12Hours 12/18/16 13:11 Temp 98.0 Pulse 103 Resp 18 B/P (MAP) 129/73 Pulse Ox 97 O2 Delivery Nasal Cannula O2 Flow Rate 3.00 Capillary Refill : Less Than 3 Seconds General Appearance: WD/WN, mild distress (shoulder pain) HEENT: PERRL/EOMI, pharynx normal Neck: non-tender, full range of motion, supple, normal inspection Cardiovascular: regular rate, rhythm, no murmur Respiratory: no accessory muscle use, wheezing (trace throughout) Peripheral Pulses: 2+ Dorsalis Pedis (R), 2+ Left Dors-Pedis (L), 2+ Radial Pulses (R), 2+ Radial Pulses (L) Gastrointestinal: non tender, soft Back: normal inspection, no CVA tenderness, no vertebral tenderness Extremities: pelvis stable, pedal edema (2+ bilateral to the level of knee.), other (tenderness to the right shoulder and humerus area. Distal sensation, circulation and movement is intact with bill checker strength equal and strong bilateral.) Neurologic/Psychiatric: alert, normal mood/affect, oriented x 3 Skin: warm/dry, ecchymosis (right anterior tibia area) [place] Coma Score Best Eye Response: (4) Open Spontaneously Best Verbal Response: (5) Oriented Best Motor Response: (6) Obeys Commands Progress/Results/Core Measures Results/Orders My Orders Orders - LETA CROSS MD Ct Head Wo (12/18/16 13:52) Chest 1 View, Ap/Pa Only (12/18/16 13:52) Shoulder, Right, 3 Views (12/18/16 13:52) Fentanyl Injection (Sublimaze Injection (12/18/16 13:52) Saline Lock/Iv-Start (12/18/16 13:52) Fentanyl Injection (Sublimaze Injection (12/18/16 15:47) Hydrocodone/Apap 10/325 Tablet (Lortab 1 (12/18/16 15:47) Sling (12/18/16 15:48) Vital Signs/I&O Vital Sign - Last 12Hours 12/18/16 13:11 Temp 98.0 Pulse 103 Resp 18 B/P (MAP) 129/73 Pulse Ox 97 O2 Delivery Nasal Cannula O2 Flow Rate 3.00 Blood Pressure Mean: 91 Progress Note : Progress Note Seen and evaluated. IV, chest x-ray, right shoulder x-ray and CT head ordered. I did discuss at length about imaging for CT of the spine given patient's steroid use and history of compression fractures. He is not complaining of any pain at this time to the spinal column and would like to forego that scanning currently. Fentanyl 75 g IV ordered for pain. Monitor patient. 1530: Shoulder x-ray shows fracture. Chest and CT are negative. Fentanyl 50 g IV and hydrocodone 10/325 mg given by mouth. Sling to right shoulder. Patient will need to follow-up with orthopedist. Given list of local orthopedist. Discharged home with return precautions. Patient and family verbalize understanding instructions and agreement with plan. Diagnostic Imaging Diagonstic Imaging: Xray Plain Films/CT/US/NM/MRI: other (shoulder) Comments [facility]IA [facility]. [place], [place] NAME: PEE TOLBERT MED REC#: [id number] PT STATUS: REG ER : 1955 PHYSICIAN: LETA CROSS MD ADMIT DATE: 12/18/16/ER Draft Date of Exam:12/18/16 SHOULDER, RIGHT, 3 VIEWS Three views of the right shoulder. INDICATION: Fall. FINDINGS: There is a mildly comminuted fracture of the greater tuberosity with minimal displacement. The fracture line extends to the rotator cuff insertion area without displacement at this location. The cortical step-off is seen along the lateral inferior aspect of the greater tuberosity. There is no subluxation or dislocation. The acromioclavicular joint appear unremarkable. IMPRESSION: Mildly displaced, minimally comminuted fracture of the right greater tuberosity. Dictated on workstation # [id number] Dict: 12/18/16 1449 Trans: 12/18/16 1509 [facility] [id number] Interpreted by: CORA OLMEDO MD Electronically signed by: Reviewed: Reviewed by Me Diagonstic Imaging: CT Plain Films/CT/US/NM/MRI: head Comments NAME: PEE TOLBERT MED REC#: [id number] PT STATUS: REG ER : 1955 PHYSICIAN: LETA CROSS MD ADMIT DATE: 12/18/16/ER Draft Date of Exam:12/18/16 CT HEAD WO PROCEDURE: CT head without contrast. TECHNIQUE: Multiple contiguous axial images were obtained through the brain without the use of intravenous contrast. INDICATION: Fall. FINDINGS: There is no intracranial hemorrhage, edema or mass effect. The brain parenchyma and mao-white matter differentiation is preserved. There is no hydrocephalus. No extra-axial fluid collection seen. The calvarium, and the visualized portions of the orbits appear unremarkable. There is mucosal thickening in the right maxillary sinus. IMPRESSION: No intracranial hemorrhage. Mild mucosal thickening in the right maxillary sinus. Dictated on workstation # [id number] Dict: 12/18/16 1459 Trans: 12/18/16 1511 [facility] [id number] Interpreted by: CORA OLMEDO MD Electronically signed by: Tatianna Imaging: Xray Plain Films/CT/US/NM/MRI: chest Comments NAME: PEE TOLBERT [facility] REC#: [id number] PT STATUS: REG ER : 1955 PHYSICIAN: LETA CROSS MD ADMIT DATE: 12/18/16/ER Draft Date of Exam:12/18/16 CHEST 1 VIEW, AP/PA ONLY INDICATION: Fall with right shoulder injury and head injury. EXAMINATION: Frontal chest was obtained at 2:51 p.m. COMPARISON: 12/04/15. FINDINGS: Elevation of the right hemidiaphragm is again noted. The heart is borderline in size. Patient has had previous kyphoplasty in the midthoracic spine. Parenchymal scarring and/or atelectasis in the right base is again noted. There is no new infiltrate, pneumothorax or pleural fluid. IMPRESSION: Chronic findings, as above, appearing similar to 12/04/15. No new abnormality. Dictated on workstation # [id number] Dict: 12/18/16 1450 Trans: 12/18/16 1512 [facility] [id number] Interpreted by: EM COX MD Electronically signed by: Departure Impression Impression: Primary Impression: Proximal humerus fracture Qualified Codes: S42.294A - Other nondisplaced fracture of upper end of right humerus, initial encounter for closed fracture Disposition: 01 HOME, SELF-CARE Condition: Improved Departure-Patient Inst. Decision time for Depature: 15:58 Referrals: ERIC ADAM MD (PCP/Family) Primary Care Physician MIGUEL ELY MD, ROBERT F DO ZAFUTA,MIKAYLA P MD Patient Instructions: Shoulder Fracture (DC) Add. Discharge Instructions: All discharge instructions reviewed with patient and/or family. Voiced understanding. Follow-up with orthopedist listed or of your choice within one week for recheck and further evaluation. Keep sling on at all times except for when showering. Take medications as directed. Follow-up with your doctor within one week for recheck and further evaluation as well. Return for worsening, fever, swelling, breathing problems, numbness or tingling to her hand, weakness of your hand or other concerns as needed. Scripts Hydrocodone/Acetaminophen (Hydrocodon-Acetaminophn 10-325) 1 Each Tablet 1 EACH PO Q4H Y for PAIN, #20 TAB 0 Refills Prov: LETA CROSS MD 12/18/16 Copy Copies To 1: ERIC ADAM MD, TIMOTHY D MD Dec 18, 2016 14:27
--- NOTE | 2016-12-18 15:09 | Diagnostic Imaging Report ---
Three views of the right shoulder. INDICATION: Fall. FINDINGS: There is a mildly comminuted fracture of the greater tuberosity with minimal displacement. The fracture line extends to the rotator cuff insertion area without displacement at this location. The cortical step-off is seen along the lateral inferior aspect of the greater tuberosity. There is no subluxation or dislocation. The acromioclavicular joint appear unremarkable. IMPRESSION: Mildly displaced, minimally comminuted fracture of the right greater tuberosity. Dictated by: Dictated on workstation # [id number]
--- NOTE | 2016-12-18 15:11 | Diagnostic Imaging Report ---
PROCEDURE: CT head without contrast. TECHNIQUE: Multiple contiguous axial images were obtained through the brain without the use of intravenous contrast. INDICATION: Fall. FINDINGS: There is no intracranial hemorrhage, edema or mass effect. The brain parenchyma and mao-white matter differentiation is preserved. There is no hydrocephalus. No extra-axial fluid collection seen. The calvarium, and the visualized portions of the orbits appear unremarkable. There is mucosal thickening in the right maxillary sinus. IMPRESSION: No intracranial hemorrhage. Mild mucosal thickening in the right maxillary sinus. Dictated by: Dictated on workstation # [id number]
--- NOTE | 2016-12-18 15:13 | Diagnostic Imaging Report ---
INDICATION: Fall with right shoulder injury and head injury. EXAMINATION: Frontal chest was obtained at 2:51 p.m. COMPARISON: 12/04/15. FINDINGS: Elevation of the right hemidiaphragm is again noted. The heart is borderline in size. Patient has had previous kyphoplasty in the midthoracic spine. Parenchymal scarring and/or atelectasis in the right base is again noted. There is no new infiltrate, pneumothorax or pleural fluid. IMPRESSION: Chronic findings, as above, appearing similar to 12/04/15. No new abnormality. Dictated by: Dictated on workstation # [id number]
[2016-12-18] MEDS ORDERED: HYDROcodone/APAP 10 MG/325 MG (LORTAB) TAB PO STA (15:47)
[2016-12-18] MEDS ORDERED: HYDR-3820 PO (16:00)
[2016-12-18 16:12] VITALS: BP 141/79
== END 2016-12-18 16:14 | disposition home or self-care (01) ==
LOC: EDUNIT# 13:00 → ER 13:02
DX: S42.251A Displaced fracture of greater tuberosity of right humerus, initial encounter for closed fracture (principal); I10 Essential (primary) hypertension; W10.9XXA Fall (on) (from) unspecified stairs and steps, initial encounter; W22.01XA Walked into wall, initial encounter
CPT/HCPCS: 70450; 71010; 73030

== ENCOUNTER 2017-01-27 14:31 | Outpatient (RCR) | payer OTHER ==
[2016-11-26 11:45] LABS: ALBUMIN 3.8 G/DL (3.2-4.5); BILIRUBIN,TOTAL 0.6 MG/DL (0.1-1.0); CALCIUM 9.8 MG/DL (8.5-10.1); CREATININE SERUM 1.22 MG/DL (0.60-1.30); POTASSIUM 5.1 MMOL/L (3.6-5.0); TOTAL PROTEIN 8.2 G/DL (6.4-8.2)
[2016-11-30 09:09] LABS: HISTOPLASMA AG SERUM 0.99 ng/mL (0.00-0.00)
[2016-11-30 16:59] LABS: VORICONAZOLE QT <0.1 ug/mL (1.0-6.0)
[2016-12-26 10:44] LABS: ALBUMIN 4.2 GM/DL (3.2-4.5); BILIRUBIN,TOTAL 0.6 MG/DL (0.1-1.0); CALCIUM 10.1 MG/DL (8.5-10.1); CREATININE SERUM 1.46 MG/DL (0.60-1.30); POTASSIUM 4.6 MMOL/L (3.6-5.0); TOTAL PROTEIN 8.3 GM/DL (6.4-8.2)
[2016-12-30 17:26] LABS: HISTOPLASMA AG SERUM Positive ng/mL (0.00-0.00)
[~2017-01-27 14:31] MED LIST changes: -ACET325T38 PO; -BACL10TA PO; -BUME2TAB3 PO; -CALC-308 PO; -DOXY100C2 PO; -IVIG; -LORA10TA76 PO; -PANT40TA3 PO; -POTA8TAB6 PO; -SENN-36 PO; -TERI202.4P SQ; -VITA1CAP PO; -VORI200T10 PO; -ZOLP5TAB PO
[2017-01-27 15:13] LABS: ALBUMIN 3.9 GM/DL (3.2-4.5); BILIRUBIN,TOTAL 0.9 MG/DL (0.1-1.0); CALCIUM 9.5 MG/DL (8.5-10.1); CREATININE SERUM 1.64 MG/DL (0.60-1.30); POTASSIUM 3.6 MMOL/L (3.6-5.0); TOTAL PROTEIN 8.8 GM/DL (6.4-8.2)
[2017-01-30 07:26] LABS: HISTOPLASMA AG SERUM 1.25 ng/mL (0.00-0.00)
[2017-01-30 09:20] LABS: VORICONAZOLE QT 2.9 ug/mL (1.0-6.0)
[2017-01-31] MEDS ORDERED: CALC-308 PO (15:17)
[2017-01-31] MEDS ORDERED: SENN-36 PO (15:17)
[2017-01-31] MEDS ORDERED: VITA1CAP PO (15:17)
[2017-01-31] MEDS ORDERED: BUME2TAB3 PO (15:17)
[2017-01-31] MEDS ORDERED: ZOLP5TAB PO (15:17)
[2017-01-31] MEDS ORDERED: BACL10TA PO (15:17)
[2017-01-31] MEDS ORDERED: TERI202.4P SQ (15:17)
[2017-01-31] MEDS ORDERED: IVIG (15:17)
[2017-01-31] MEDS ORDERED: POTA8TAB6 PO (15:17)
[2017-01-31] MEDS ORDERED: ACET325T38 PO (15:17)
[2017-01-31] MEDS ORDERED: LORA10TA76 PO (15:17)
[2017-01-31] MEDS ORDERED: PANT40TA3 PO (15:17)
[2017-01-31] MEDS ORDERED: DOXY100C2 PO (15:17)
[2017-01-31] MEDS ORDERED: VORI200T10 PO (15:17)
== END 2017-02-24 | disposition home or self-care (01) ==
LOC: LAB 14:31
PROVIDERS: ATTEND Internal Medicine Infectious Disease
DX: B39.9 Histoplasmosis, unspecified (principal); Z79.2 Long term (current) use of antibiotics
CPT/HCPCS: 36415; 80053; 80299; 87385

== ENCOUNTER → 2017-01-27 | Outpatient (CLI) | payer OTHER ==
[~2017-01-27] MED LIST changes: +ACET325T38 PO; +BACL10TA PO; +BUME2TAB3 PO; +CALC-308 PO; +DOXY100C2 PO; +HYDR-3820 PO; +IVIG; +LORA10TA76 PO; +PANT40TA3 PO; +POTA8TAB6 PO; +SENN-36 PO; +TERI202.4P SQ; +VITA1CAP PO; +VORI200T10 PO; +ZOLP5TAB PO
== END ==
LOC: RAD 14:26
PROVIDERS: ATTEND Internal Medicine
DX: R06.02 Shortness of breath (principal); R60.9 Edema, unspecified
CPT/HCPCS: 93306

== ENCOUNTER → 2017-01-29 | Outpatient (CLI) | payer OTHER ==
[~2017-01-29] MED LIST changes: +ACET325T38 PO; +BACL10TA PO; +BUME2TAB3 PO; +CALC-308 PO; +DOXY100C2 PO; +IVIG; +LORA10TA76 PO; +PANT40TA3 PO; +POTA8TAB6 PO; +SENN-36 PO; +TERI202.4P SQ; +VITA1CAP PO; +VORI200T10 PO; +ZOLP5TAB PO
== END ==
LOC: WOUNDCARE 12:40
PROVIDERS: ATTEND Surgery
DX: L95.8 Other vasculitis limited to the skin (principal); L97.212 Non-pressure chronic ulcer of right calf with fat layer exposed; I70.232 Atherosclerosis of native arteries of right leg with ulceration of calf; I87.331 Chronic venous hypertension (idiopathic) with ulcer and inflammation of right lower extremity
CPT/HCPCS: 87070; 87075; 87186; 87205

== ENCOUNTER → 2017-02-05 | Outpatient (CLI) | payer OTHER | LOC: WOUNDCARE 12:53 | PROVIDERS: ATTEND Surgery | DX: I70.232 Atherosclerosis of native arteries of right leg with ulceration of calf (principal); L97.212 Non-pressure chronic ulcer of right calf with fat layer exposed; I87.331 Chronic venous hypertension (idiopathic) with ulcer and inflammation of right lower extremity; L95.8 Other vasculitis limited to the skin | CPT/HCPCS: 11042; 11045 ==

== ENCOUNTER → 2017-02-12 | Outpatient (CLI) | payer OTHER | LOC: WOUNDCARE 12:55 | PROVIDERS: ATTEND Surgery | DX: L95.8 Other vasculitis limited to the skin (principal); I87.331 Chronic venous hypertension (idiopathic) with ulcer and inflammation of right lower extremity; L97.212 Non-pressure chronic ulcer of right calf with fat layer exposed | CPT/HCPCS: 11042; 11045 ==

== ENCOUNTER → 2017-02-19 | Outpatient (CLI) | payer OTHER | LOC: WOUNDCARE 12:55 | PROVIDERS: ATTEND Surgery | DX: L97.213 Non-pressure chronic ulcer of right calf with necrosis of muscle (principal); L95.8 Other vasculitis limited to the skin; I87.331 Chronic venous hypertension (idiopathic) with ulcer and inflammation of right lower extremity | CPT/HCPCS: 11042; 11045 ==

== ENCOUNTER 2017-02-26 11:45 | Outpatient (RCR) | payer OTHER ==
[2017-01-31 14:07] LABS: BASOPHILS % (AUTO) 0 % (0-10); EOSINOPHILS % (AUTO) 0 % (0-10); LYMPHOCYTES # (AUTO) 0.9 X 10^3 (1.0-4.0); LYMPHOCYTES % (AUTO) 9 % (12-44); MEAN CORPUSCULAR HEMOGLOBIN 27 PG (25-34); MEAN CORPUSCULAR HGB CONC 29 G/DL (32-36); MEAN CORPUSCULAR VOLUME 93 FL (80-99); MEAN PLATELET VOLUME 9.8 FL (7.4-10.4); MONOCYTES # (AUTO) 0.7 X 10^3 (0.0-1.0); MONOCYTES % (AUTO) 7 % (0-12); NEUTROPHILS # (AUTO) 8.3 X 10^3 (1.8-7.8); NEUTROPHILS % (AUTO) 84 % (42-75); PLATELET COUNT 183 10^3/uL (130-400); RED CELL DISTRIBUTION WIDTH 15.7 % (10.0-14.5)
--- NOTE | 2017-01-31 14:11 | Diagnostic Imaging Report ---
INDICATION: Post line placement. TECHNIQUE: Single view chest at 1:47 PM. CORRELATION STUDY: 12/18/2016 FINDINGS: Heart size is enlarged. Mediastinum is mildly prominent but stable. Vasculature within normal limits. Since prior study, left-sided central line has been placed. The course is somewhat unusual but tip ultimately terminates over the right paramediastinal region likely over the low SVC. This likely follows the course of the vessels as outlaid on prior CT chest examination. Kyphoplasty changes at T9 level. Elevation of the right hemidiaphragm with some crowding of the right lung base with atelectasis and/or scarring. IMPRESSION: 1. Left-sided central line has been placed, tip projects over the expected location of the SVC. Dictated by: Dictated on workstation # [id number]
[2017-01-31 14:15] VITALS: BP 162/88
[2017-01-31] MEDS: CEFEPIME 2 GM/NS 50 ML IVPB IV SCH ×2 (14:15)
[2017-01-31 14:23] LABS: ANION GAP 17 MMOL/L (5-14); BLOOD UREA NITROGEN 25 MG/DL (7-18); BUN/CREATININE RATIO 26; CALCIUM 9.2 MG/DL (8.5-10.1); CARBON DIOXIDE 31 MMOL/L (21-32); CHLORIDE 96 MMOL/L (98-107); CREATININE SERUM 0.96 MG/DL (0.60-1.30); GFR ESTIMATED > 60; GLUCOSE 145 MG/DL (70-105); POTASSIUM 3.6 MMOL/L (3.6-5.0); SODIUM 144 MMOL/L (135-145)
[2017-02-01] MEDS: CATHETER FLUSH 10 ML SYR IV PRN ×2 (09:29→09:56)
[2017-02-01] MEDS: CEFEPIME 2 GM/NS 50 ML IVPB IV SCH ×2 (09:30)
[2017-02-01 10:05] VITALS: BP 143/99
[2017-02-02] MEDS: CATHETER FLUSH 10 ML SYR IV PRN ×2 (09:29→09:56)
[2017-02-02] MEDS: CEFEPIME 2 GM/NS 50 ML IVPB IV SCH ×2 (09:30)
[2017-02-02 10:05] VITALS: BP 149/93
[2017-02-03] MEDS: CATHETER FLUSH 10 ML SYR IV PRN ×2 (09:28→10:00)
[2017-02-03] MEDS: CEFEPIME 2 GM/NS 50 ML IVPB IV SCH ×2 (09:28)
[2017-02-03 10:00] VITALS: BP 160/96
[2017-02-04] MEDS: CEFEPIME 2 GM/NS 50 ML IVPB IV SCH ×2 (09:24)
[2017-02-04] MEDS: CATHETER FLUSH 10 ML SYR IV PRN ×2 (09:24→10:00)
[2017-02-04 09:36] VITALS: BP 157/84
[2017-02-05] MEDS: CATHETER FLUSH 10 ML SYR IV PRN ×2 (09:22→09:50)
[2017-02-05] MEDS: CEFEPIME 2 GM/NS 50 ML IVPB IV SCH ×2 (09:22)
[2017-02-05 09:50] VITALS: BP 133/84
[2017-02-06] MEDS: CATHETER FLUSH 10 ML SYR IV PRN ×2 (09:28→10:00)
[2017-02-06] MEDS: CEFEPIME 2 GM/NS 50 ML IVPB IV SCH ×2 (09:28)
[2017-02-06 10:00] VITALS: BP 159/93
[2017-02-07] MEDS: CEFEPIME 2 GM/NS 50 ML IVPB IV SCH ×2 (09:40)
[2017-02-07] MEDS: CATHETER FLUSH 10 ML SYR IV PRN (09:41)
[2017-02-07 10:15] VITALS: BP 135/85
[2017-02-08] MEDS: CATHETER FLUSH 10 ML SYR IV PRN (10:01)
[2017-02-08] MEDS: CEFEPIME 2 GM/NS 50 ML IVPB IV SCH ×2 (10:01)
[2017-02-08 10:09] VITALS: BP 136/86
[2017-02-09 09:46] VITALS: BP 139/73
[2017-02-09] MEDS: CATHETER FLUSH 10 ML SYR IV PRN (09:48)
[2017-02-09] MEDS: CEFEPIME 2 GM/NS 50 ML IVPB IV SCH ×2 (09:48)
[2017-02-10] MEDS: CATHETER FLUSH 10 ML SYR IV PRN ×2 (09:22→09:50)
[2017-02-10] MEDS: CEFEPIME 2 GM/NS 50 ML IVPB IV SCH ×2 (09:22)
[2017-02-10 09:36] VITALS: BP 151/83
[2017-02-11] MEDS: CEFEPIME 2 GM/NS 50 ML IVPB IV SCH ×2 (09:17)
[2017-02-11] MEDS: CATHETER FLUSH 10 ML SYR IV PRN (09:18)
[2017-02-11 10:00] VITALS: BP 144/82
[2017-02-12] MEDS: CEFEPIME 2 GM/NS 50 ML IVPB IV SCH ×2 (08:57)
[2017-02-12] MEDS: CATHETER FLUSH 10 ML SYR IV PRN ×2 (08:57→09:20)
[2017-02-12 10:24] VITALS: BP 135/81
[2017-02-13] MEDS: CEFEPIME 2 GM/NS 50 ML IVPB IV SCH ×2 (09:25)
[2017-02-13] MEDS: CATHETER FLUSH 10 ML SYR IV PRN (09:25)
[2017-02-13 10:19] VITALS: BP 133/80
[2017-02-14] MEDS: CATHETER FLUSH 10 ML SYR IV PRN (09:09)
[2017-02-14] MEDS: CEFEPIME 2 GM/NS 50 ML IVPB IV SCH ×2 (09:15)
[2017-02-14 10:01] VITALS: BP 123/88
[2017-02-15] MEDS: CEFEPIME 2 GM/NS 50 ML IVPB IV SCH ×2 (09:08)
[2017-02-15] MEDS: CATHETER FLUSH 10 ML SYR IV PRN ×2 (09:09→09:35)
[2017-02-15 09:22] VITALS: BP_SYST 151; BP_SYST 152; BP_DIAS 82; BP_DIAS 85
[2017-02-16] MEDS: CATHETER FLUSH 10 ML SYR IV PRN ×2 (09:12→09:40)
[2017-02-16] MEDS: CEFEPIME 2 GM/NS 50 ML IVPB IV SCH ×2 (09:12)
[2017-02-16 09:20] VITALS: BP 138/88
[2017-02-17] MEDS: CEFEPIME 2 GM/NS 50 ML IVPB IV SCH ×2 (09:27)
[2017-02-17] MEDS: CATHETER FLUSH 10 ML SYR IV PRN ×2 (09:28→10:00)
[2017-02-17 09:55] VITALS: BP 145/85
[2017-02-18] MEDS: CATHETER FLUSH 10 ML SYR IV PRN ×2 (09:20→09:51)
[2017-02-18] MEDS: CEFEPIME 2 GM/NS 50 ML IVPB IV SCH ×2 (09:20)
[2017-02-18 09:23] VITALS: BP 154/92
[2017-02-19 09:25] VITALS: BP 137/75
[2017-02-19] MEDS: CATHETER FLUSH 10 ML SYR IV PRN ×2 (09:27→10:00)
[2017-02-19] MEDS: CEFEPIME 2 GM/NS 50 ML IVPB IV SCH ×2 (09:28)
[2017-02-20] MEDS: CEFEPIME 2 GM/NS 50 ML IVPB IV SCH ×2 (09:57)
[2017-02-20] MEDS: CATHETER FLUSH 10 ML SYR IV PRN ×2 (09:57→10:25)
[2017-02-20 10:04] VITALS: BP 158/88
[2017-02-21 10:10] VITALS: BP 124/74
[~2017-02-26] VITALS: Ht 177.8 cm; Wt 102.5 kg
[~2017-02-26 11:45] MED LIST changes: +CEFEPIME HCL 2 GM (MAXIPIME) VIAL ONE; +NS (IVPB) 50 ML ONE
[2017-02-26 12:14] VITALS: BP 159/97
== END 2017-03-29 | disposition home or self-care (01) ==
LOC: SDC 11:45
PROVIDERS: ATTEND Surgery
DX: L95.8 Other vasculitis limited to the skin (principal); L97.212 Non-pressure chronic ulcer of right calf with fat layer exposed; I70.232 Atherosclerosis of native arteries of right leg with ulceration of calf; I87.331 Chronic venous hypertension (idiopathic) with ulcer and inflammation of right lower extremity
CPT/HCPCS: 36415; 36569; 71010; 76937; 80048; 85025; 96365; 99212

== ENCOUNTER 2017-02-26 12:25 | Outpatient (RCR) | payer OTHER ==
[~2017-02-26 12:25] MED LIST changes: -CEFEPIME HCL 2 GM (MAXIPIME) VIAL ONE; -NS (IVPB) 50 ML ONE
[2017-02-26 13:02] LABS: ALANINE AMINOTRANSFERASE 27 U/L (0-55); ALBUMIN 4.1 GM/DL (3.2-4.5); ANION GAP 19 MMOL/L (5-14); ASPARTATE AMINO TRANSFERASE 21 U/L (5-34); BILIRUBIN,TOTAL 0.8 MG/DL (0.1-1.0); BLOOD UREA NITROGEN 23 MG/DL (7-18); BUN/CREATININE RATIO 23; CALCIUM 9.6 MG/DL (8.5-10.1); CARBON DIOXIDE 29 MMOL/L (21-32); CHLORIDE 97 MMOL/L (98-107); GFR ESTIMATED > 60; GLUCOSE 165 MG/DL (70-105); POTASSIUM 4.1 MMOL/L (3.6-5.0); SODIUM 145 MMOL/L (135-145); TOTAL PROTEIN 8.3 GM/DL (6.4-8.2)
[2017-03-03 07:30] LABS: VORICONAZOLE QT 1.1 ug/mL (1.0-6.0)
[2017-03-04 16:59] LABS: HISTOPLASMA AG SERUM Positive (None Detected)
== END 2017-03-29 | disposition home or self-care (01) ==
LOC: LAB 12:25
PROVIDERS: ATTEND Internal Medicine Infectious Disease
DX: B39.9 Histoplasmosis, unspecified (principal); Z79.2 Long term (current) use of antibiotics
CPT/HCPCS: 36415; 80053; 80299; 87385

== ENCOUNTER → 2017-02-26 | Outpatient (CLI) | payer OTHER | LOC: WOUNDCARE 12:42 | PROVIDERS: ATTEND Surgery | DX: L97.213 Non-pressure chronic ulcer of right calf with necrosis of muscle (principal); L95.8 Other vasculitis limited to the skin; I87.331 Chronic venous hypertension (idiopathic) with ulcer and inflammation of right lower extremity | CPT/HCPCS: 11042; 11045; 87070; 87075; 87077; 87186; 87205 ==

== ENCOUNTER → 2017-03-05 | Outpatient (CLI) | payer OTHER | LOC: WOUNDCARE 13:32 | PROVIDERS: ATTEND Surgery | DX: L97.213 Non-pressure chronic ulcer of right calf with necrosis of muscle (principal); L95.8 Other vasculitis limited to the skin; I87.331 Chronic venous hypertension (idiopathic) with ulcer and inflammation of right lower extremity | CPT/HCPCS: 11042; 11045 ==

== ENCOUNTER → 2017-03-12 | Outpatient (CLI) | payer OTHER | LOC: WOUNDCARE 12:44 | PROVIDERS: ATTEND Surgery | DX: L97.213 Non-pressure chronic ulcer of right calf with necrosis of muscle (principal); L95.8 Other vasculitis limited to the skin; I87.331 Chronic venous hypertension (idiopathic) with ulcer and inflammation of right lower extremity; B96.5 Pseudomonas (aeruginosa) (mallei) (pseudomallei) as the cause of diseases classified elsewhere | CPT/HCPCS: 11042; 11045 ==

== ENCOUNTER → 2017-03-17 | Outpatient (CLI) | payer OTHER ==
[2017-03-17 09:49] LABS: BASOPHILS % (AUTO) 0 % (0-10); EOSINOPHILS # (AUTO) 0.2 10^3/uL (0.0-0.3); EOSINOPHILS % (AUTO) 2 % (0-10); LYMPHOCYTES # (AUTO) 2.5 X 10^3 (1.0-4.0); LYMPHOCYTES % (AUTO) 24 % (12-44); MEAN CORPUSCULAR HEMOGLOBIN 26 PG (25-34); MEAN CORPUSCULAR HGB CONC 30 G/DL (32-36); MEAN CORPUSCULAR VOLUME 86 FL (80-99); MEAN PLATELET VOLUME 9.7 FL (7.4-10.4); MONOCYTES # (AUTO) 0.9 X 10^3 (0.0-1.0); MONOCYTES % (AUTO) 9 % (0-12); NEUTROPHILS # (AUTO) 6.6 X 10^3 (1.8-7.8); NEUTROPHILS % (AUTO) 65 % (42-75); PLATELET COUNT 219 10^3/uL (130-400); RED CELL DISTRIBUTION WIDTH 15.4 % (10.0-14.5); WHITE BLOOD COUNT 10.2 10^3/uL (4.3-11.0)
[2017-03-17 10:08] LABS: ANION GAP 11 MMOL/L (5-14); BLOOD UREA NITROGEN 18 MG/DL (7-18); BUN/CREATININE RATIO 18; CALCIUM 8.6 MG/DL (8.5-10.1); CARBON DIOXIDE 29 MMOL/L (21-32); CHLORIDE 99 MMOL/L (98-107); CREATININE SERUM 1.02 MG/DL (0.60-1.30); GFR ESTIMATED > 60; GLUCOSE 82 MG/DL (70-105); POTASSIUM 3.7 MMOL/L (3.6-5.0); SODIUM 139 MMOL/L (135-145)
[2017-03-17 10:57] LABS: TOBRAMYCIN,TROUGH 31.9 UG/ML (<2.0)
== END ==
LOC: LABNPT 09:42
PROVIDERS: ATTEND Surgery
DX: I87.331 Chronic venous hypertension (idiopathic) with ulcer and inflammation of right lower extremity (principal); L97.213 Non-pressure chronic ulcer of right calf with necrosis of muscle; L95.8 Other vasculitis limited to the skin; B96.5 Pseudomonas (aeruginosa) (mallei) (pseudomallei) as the cause of diseases classified elsewhere
CPT/HCPCS: 80048; 80200; 85025

== ENCOUNTER → 2017-03-19 | Outpatient (CLI) | payer OTHER | LOC: WOUNDCARE 12:44 | PROVIDERS: ATTEND Surgery | DX: L97.212 Non-pressure chronic ulcer of right calf with fat layer exposed (principal); L95.8 Other vasculitis limited to the skin; I87.331 Chronic venous hypertension (idiopathic) with ulcer and inflammation of right lower extremity; G60.8 Other hereditary and idiopathic neuropathies; B96.5 Pseudomonas (aeruginosa) (mallei) (pseudomallei) as the cause of diseases classified elsewhere | CPT/HCPCS: 11042; 11045 ==

== ENCOUNTER 2017-03-24 15:43 | Outpatient (RCR) | payer OTHER ==
[2017-03-06] MEDS: SODIUM CHLORIDE IV SCH ×2 (09:17)
[2017-03-06] MEDS: TOBRAMYCIN IV SCH ×2 (09:17)
[2017-03-06 10:25] VITALS: BP 127/78
[2017-03-07] MEDS: TOBRAMYCIN IV SCH ×2 (09:24)
[2017-03-07] MEDS: SODIUM CHLORIDE IV SCH ×2 (09:24)
[2017-03-07 10:27] VITALS: BP 157/91
[2017-03-07 18:29] LABS: ANION GAP 11 MMOL/L (5-14); BLOOD UREA NITROGEN 29 MG/DL (7-18); BUN/CREATININE RATIO 35; CALCIUM 9.1 MG/DL (8.5-10.1); CARBON DIOXIDE 30 MMOL/L (21-32); CHLORIDE 99 MMOL/L (98-107); CREATININE SERUM 0.83 MG/DL (0.60-1.30); GFR ESTIMATED > 60; GLUCOSE 172 MG/DL (70-105); SODIUM 140 MMOL/L (135-145); TOBRAMYCIN, RANDOM 5.3 UG/ML (4.0-8.0)
[2017-03-08] MEDS: SODIUM CHLORIDE IV SCH ×2 (09:09)
[2017-03-08] MEDS: TOBRAMYCIN IV SCH ×2 (09:09)
[2017-03-08 09:48] VITALS: BP 130/76
[2017-03-09] MEDS: SODIUM CHLORIDE IV SCH ×2 (09:14)
[2017-03-09] MEDS: TOBRAMYCIN IV SCH ×2 (09:14)
[2017-03-09 10:20] VITALS: BP 136/83
[2017-03-10] MEDS: TOBRAMYCIN IV SCH ×2 (09:15)
[2017-03-10] MEDS: SODIUM CHLORIDE IV SCH ×2 (09:15)
[2017-03-10 10:30] VITALS: BP 149/84
[2017-03-10 18:21] LABS: ANION GAP 10 MMOL/L (5-14); BLOOD UREA NITROGEN 28 MG/DL (7-18); BUN/CREATININE RATIO 29; CALCIUM 9.9 MG/DL (8.5-10.1); CARBON DIOXIDE 32 MMOL/L (21-32); CHLORIDE 102 MMOL/L (98-107); CREATININE SERUM 0.96 MG/DL (0.60-1.30); GFR ESTIMATED > 60; GLUCOSE 179 MG/DL (70-105); POTASSIUM 4.4 MMOL/L (3.6-5.0); SODIUM 144 MMOL/L (135-145); TOBRAMYCIN, RANDOM 4.8 UG/ML (4.0-8.0)
[2017-03-11] MEDS: TOBRAMYCIN IV SCH ×2 (09:15)
[2017-03-11] MEDS: SODIUM CHLORIDE IV SCH ×2 (09:15)
[2017-03-11 09:24] LABS: BASOPHILS % (AUTO) 0 % (0-10); EOSINOPHILS # (AUTO) 0.1 10^3/uL (0.0-0.3); EOSINOPHILS % (AUTO) 1 % (0-10); LYMPHOCYTES # (AUTO) 2.5 X 10^3 (1.0-4.0); LYMPHOCYTES % (AUTO) 27 % (12-44); MEAN CORPUSCULAR HEMOGLOBIN 26 PG (25-34); MEAN CORPUSCULAR HGB CONC 30 G/DL (32-36); MEAN CORPUSCULAR VOLUME 87 FL (80-99); MEAN PLATELET VOLUME 9.7 FL (7.4-10.4); MONOCYTES # (AUTO) 0.7 X 10^3 (0.0-1.0); MONOCYTES % (AUTO) 8 % (0-12); NEUTROPHILS # (AUTO) 5.9 X 10^3 (1.8-7.8); NEUTROPHILS % (AUTO) 64 % (42-75); PLATELET COUNT 215 10^3/uL (130-400); RED BLOOD COUNT 4.22 10^6/uL (4.35-5.85); RED CELL DISTRIBUTION WIDTH 15.3 % (10.0-14.5); WHITE BLOOD COUNT 9.2 10^3/uL (4.3-11.0)
[2017-03-11 10:30] VITALS: BP 140/86
[2017-03-12] MEDS: TOBRAMYCIN IV SCH ×2 (10:15)
[2017-03-12] MEDS: SODIUM CHLORIDE IV SCH ×2 (10:15)
[2017-03-12 10:44] LABS: ANION GAP 13 MMOL/L (5-14); BLOOD UREA NITROGEN 21 MG/DL (7-18); BUN/CREATININE RATIO 21; CALCIUM 9.3 MG/DL (8.5-10.1); CARBON DIOXIDE 29 MMOL/L (21-32); CHLORIDE 100 MMOL/L (98-107); GFR ESTIMATED > 60; GLUCOSE 124 MG/DL (70-105); POTASSIUM 3.7 MMOL/L (3.6-5.0); SODIUM 142 MMOL/L (135-145)
[2017-03-12 11:20] VITALS: BP 137/94
[2017-03-13] MEDS: TOBRAMYCIN IV SCH ×2 (09:45)
[2017-03-13] MEDS: SODIUM CHLORIDE IV SCH ×2 (09:45)
[2017-03-13 09:59] VITALS: BP 142/81
[2017-03-17 17:03] VITALS: BP 0/0
[2017-03-18 16:50] VITALS: BP 0/0
[2017-03-18 17:11] LABS: ANION GAP 13 MMOL/L (5-14); BLOOD UREA NITROGEN 18 MG/DL (7-18); BUN/CREATININE RATIO 16; CALCIUM 8.9 MG/DL (8.5-10.1); CARBON DIOXIDE 28 MMOL/L (21-32); CHLORIDE 99 MMOL/L (98-107); CREATININE SERUM 1.15 MG/DL (0.60-1.30); GFR ESTIMATED > 60; GLUCOSE 166 MG/DL (70-105); POTASSIUM 4.1 MMOL/L (3.6-5.0); SODIUM 140 MMOL/L (135-145); TOBRAMYCIN, RANDOM 9.3 UG/ML (4.0-8.0)
[2017-03-20 17:00] VITALS: BP 118/85
[~2017-03-24] VITALS: Ht 177.8 cm; Wt 98.0 kg
[~2017-03-24 15:43] MED LIST changes: +SODIUM CHLORIDE IV SCH; +TOBRAMYCIN IV SCH; +TROUGH ORDER-PHARMACY XX NR
== END 2017-03-29 | disposition home or self-care (01) ==
LOC: SDC 15:43
PROVIDERS: ATTEND Surgery
DX: L97.213 Non-pressure chronic ulcer of right calf with necrosis of muscle (principal); B96.5 Pseudomonas (aeruginosa) (mallei) (pseudomallei) as the cause of diseases classified elsewhere; L95.8 Other vasculitis limited to the skin; I87.331 Chronic venous hypertension (idiopathic) with ulcer and inflammation of right lower extremity
CPT/HCPCS: 36415; 36592; 80048; 80200; 85025; 96365; 99211

== ENCOUNTER → 2017-03-24 | Outpatient (CLI) | payer OTHER ==
[2017-03-24 08:35] LABS: BASOPHILS % (AUTO) 0 % (0-10); EOSINOPHILS # (AUTO) 0.1 10^3/uL (0.0-0.3); EOSINOPHILS % (AUTO) 1 % (0-10); LYMPHOCYTES % (AUTO) 19 % (12-44); MEAN CORPUSCULAR HEMOGLOBIN 26 PG (25-34); MEAN CORPUSCULAR HGB CONC 30 G/DL (32-36); MEAN CORPUSCULAR VOLUME 86 FL (80-99); MEAN PLATELET VOLUME 9.8 FL (7.4-10.4); MONOCYTES # (AUTO) 1.2 X 10^3 (0.0-1.0); MONOCYTES % (AUTO) 11 % (0-12); NEUTROPHILS # (AUTO) 7.2 X 10^3 (1.8-7.8); NEUTROPHILS % (AUTO) 69 % (42-75); PLATELET COUNT 190 10^3/uL (130-400); RED BLOOD COUNT 4.14 10^6/uL (4.35-5.85); RED CELL DISTRIBUTION WIDTH 15.9 % (10.0-14.5); WHITE BLOOD COUNT 10.4 10^3/uL (4.3-11.0)
[2017-03-24 08:54] LABS: CALCIUM 9.3 MG/DL (8.5-10.1); CREATININE SERUM 1.26 MG/DL (0.60-1.30)
[2017-03-24 09:07] LABS: TOBRAMYCIN,TROUGH 0.4 UG/ML (<2.0)
== END ==
LOC: LABNPT 08:28
PROVIDERS: ATTEND Surgery
DX: M30.1 Polyarteritis with lung involvement [Churg-Strauss] (principal); B96.5 Pseudomonas (aeruginosa) (mallei) (pseudomallei) as the cause of diseases classified elsewhere
CPT/HCPCS: 80048; 80200; 85025

== ENCOUNTER 2017-03-26 14:00 | Outpatient (RCR) | payer OTHER ==
[2017-03-26 14:19] LABS: BILIRUBIN,URINE NEGATIVE (NEGATIVE); KETONES,URINE NEGATIVE (NEGATIVE); LEUKOCYTE ESTERASE ,URINE NEGATIVE (NEGATIVE); NITRITE,URINE NEGATIVE (NEGATIVE); PH,URINE 6 (5-9); PROTEIN,URINE 2+ (NEGATIVE); UROBILINOGEN,URINE NORMAL (NORMAL)
[2017-03-26 14:20] LABS: BASOPHILS % (AUTO) 0 % (0-10); EOSINOPHILS % (AUTO) 0 % (0-10); LYMPHOCYTES # (AUTO) 1.3 X 10^3 (1.0-4.0); LYMPHOCYTES % (AUTO) 10 % (12-44); MEAN CORPUSCULAR HEMOGLOBIN 26 PG (25-34); MEAN CORPUSCULAR HGB CONC 30 G/DL (32-36); MEAN CORPUSCULAR VOLUME 87 FL (80-99); MEAN PLATELET VOLUME 9.5 FL (7.4-10.4); MONOCYTES # (AUTO) 0.6 X 10^3 (0.0-1.0); MONOCYTES % (AUTO) 4 % (0-12); NEUTROPHILS # (AUTO) 10.9 X 10^3 (1.8-7.8); NEUTROPHILS % (AUTO) 85 % (42-75); PLATELET COUNT 212 10^3/uL (130-400); RED BLOOD COUNT 4.12 10^6/uL (4.35-5.85); WHITE BLOOD COUNT 12.8 10^3/uL (4.3-11.0)
[2017-03-26 14:36] LABS: GRANULAR CASTS,URINE RARE /LPF; SQUAMOUS EPITHELIAL CELL,UR RARE /HPF; WBC,URINE 0-2 /HPF
[2017-03-26 14:37] LABS: ALBUMIN 4.1 GM/DL (3.2-4.5); BILIRUBIN,TOTAL 0.4 MG/DL (0.1-1.0); CALCIUM 9.4 MG/DL (8.5-10.1); CREATININE SERUM 1.44 MG/DL (0.60-1.30); POTASSIUM 4.9 MMOL/L (3.6-5.0); TOTAL PROTEIN 9.9 GM/DL (6.4-8.2); hs C REACTIVE PROTEIN 1.48 MG/DL (0.00-0.50)
[2017-03-26 14:54] LABS: ERYTHROCYTE SEDIMENTATION RATE > 140 MM/HR (0-30)
== END 2017-03-29 | disposition home or self-care (01) ==
LOC: LAB 14:00
PROVIDERS: ATTEND Internal Medicine
DX: M30.1 Polyarteritis with lung involvement [Churg-Strauss] (principal)
CPT/HCPCS: 36415; 80053; 81000; 85025; 85652; 86141

== ENCOUNTER → 2017-03-26 | Outpatient (CLI) | payer OTHER ==
[~2017-03-26] MED LIST changes: -SODIUM CHLORIDE IV SCH; -TOBRAMYCIN IV SCH; -TROUGH ORDER-PHARMACY XX NR
== END ==
LOC: WOUNDCARE 12:42
PROVIDERS: ATTEND Surgery
DX: L97.212 Non-pressure chronic ulcer of right calf with fat layer exposed (principal); L95.8 Other vasculitis limited to the skin; I87.331 Chronic venous hypertension (idiopathic) with ulcer and inflammation of right lower extremity; G60.8 Other hereditary and idiopathic neuropathies; B96.5 Pseudomonas (aeruginosa) (mallei) (pseudomallei) as the cause of diseases classified elsewhere
CPT/HCPCS: 11042; 11045

== ENCOUNTER → 2017-03-31 | Outpatient (CLI) | payer OTHER | LOC: LABNPT 14:39 | PROVIDERS: ATTEND Surgery | DX: I87.331 Chronic venous hypertension (idiopathic) with ulcer and inflammation of right lower extremity (principal); L97.213 Non-pressure chronic ulcer of right calf with necrosis of muscle; L95.8 Other vasculitis limited to the skin; B96.5 Pseudomonas (aeruginosa) (mallei) (pseudomallei) as the cause of diseases classified elsewhere | CPT/HCPCS: 80200 ==

== ENCOUNTER → 2017-04-02 | Outpatient (CLI) | payer OTHER | LOC: WOUNDCARE 10:15 | PROVIDERS: ATTEND Surgery | DX: L97.212 Non-pressure chronic ulcer of right calf with fat layer exposed (principal); L95.8 Other vasculitis limited to the skin; I87.331 Chronic venous hypertension (idiopathic) with ulcer and inflammation of right lower extremity; G60.8 Other hereditary and idiopathic neuropathies; B96.5 Pseudomonas (aeruginosa) (mallei) (pseudomallei) as the cause of diseases classified elsewhere | CPT/HCPCS: 11042; 11045; 87070; 87075; 87077; 87186; 87205; 97605 ==

== ENCOUNTER → 2017-04-04 | Outpatient (CLI) | payer OTHER | LOC: WOUNDCARE 10:05 | PROVIDERS: ATTEND Surgery | DX: L97.212 Non-pressure chronic ulcer of right calf with fat layer exposed (principal); L95.8 Other vasculitis limited to the skin; I87.331 Chronic venous hypertension (idiopathic) with ulcer and inflammation of right lower extremity; G60.8 Other hereditary and idiopathic neuropathies; B96.5 Pseudomonas (aeruginosa) (mallei) (pseudomallei) as the cause of diseases classified elsewhere | CPT/HCPCS: 97605 ==

== ENCOUNTER → 2017-04-07 | Outpatient (CLI) | payer OTHER | LOC: WOUNDCARE 10:08 | PROVIDERS: ATTEND Surgery | DX: L97.212 Non-pressure chronic ulcer of right calf with fat layer exposed (principal); L95.8 Other vasculitis limited to the skin; I87.331 Chronic venous hypertension (idiopathic) with ulcer and inflammation of right lower extremity; B96.5 Pseudomonas (aeruginosa) (mallei) (pseudomallei) as the cause of diseases classified elsewhere; G60.8 Other hereditary and idiopathic neuropathies | CPT/HCPCS: 11042; 11045; 97605 ==

== ENCOUNTER → 2017-04-10 | Outpatient (CLI) | payer OTHER | LOC: WOUNDCARE 10:17 | PROVIDERS: ATTEND Internal Medicine | DX: L97.212 Non-pressure chronic ulcer of right calf with fat layer exposed (principal); L95.8 Other vasculitis limited to the skin; I87.331 Chronic venous hypertension (idiopathic) with ulcer and inflammation of right lower extremity; B96.5 Pseudomonas (aeruginosa) (mallei) (pseudomallei) as the cause of diseases classified elsewhere; G80.8 Other cerebral palsy; L03.115 Cellulitis of right lower limb ==

== ENCOUNTER → 2017-04-11 | Outpatient (CLI) | payer OTHER ==
--- NOTE | 2017-04-11 14:20 | Diagnostic Imaging Report ---
INDICATION: Soft tissue injury. Ulcer. Suspect osteomyelitis. COMPARISON: None. FINDINGS: Multiple radiographic views of the right tibia and fibula were obtained. There is moderate diffuse soft tissue edema. There is also a large area of relative lucency involving the lateral soft tissues. This corresponds to radiopaque markers and may be on the basis of patient's known soft tissue ulcers. No unexpected radiopaque foreign bodies are seen. Underlying osseous structures are intact. There is no appreciable osteolytic process. There is no evidence of acute fracture or dislocation. Joint spaces appear to be intact. Note is made of calcified arteriosclerosis. IMPRESSION: 1. Findings consistent with soft tissue injury of the right lower leg. 2. No appreciable osseous abnormality. Please note however that osteomyelitis cannot be excluded based on radiographs alone. Further characterization with MRI is recommended. Dictated by: Dictated on workstation # [id number]
== END ==
LOC: RAD 12:57
PROVIDERS: ATTEND Internal Medicine
DX: L97.909 Non-pressure chronic ulcer of unspecified part of unspecified lower leg with unspecified severity (principal)
CPT/HCPCS: 73590

== ENCOUNTER → 2017-04-11 | Outpatient (CLI) | payer OTHER | LOC: WOUNDCARE 10:18 | PROVIDERS: ATTEND Nurse Practitioner | DX: L97.212 Non-pressure chronic ulcer of right calf with fat layer exposed (principal); L95.8 Other vasculitis limited to the skin; I87.331 Chronic venous hypertension (idiopathic) with ulcer and inflammation of right lower extremity; B96.5 Pseudomonas (aeruginosa) (mallei) (pseudomallei) as the cause of diseases classified elsewhere; G60.8 Other hereditary and idiopathic neuropathies; L03.115 Cellulitis of right lower limb | CPT/HCPCS: 99213 ==

== ENCOUNTER → 2017-04-16 | Outpatient (CLI) | payer OTHER | LOC: WOUNDCARE 10:09 | PROVIDERS: ATTEND Surgery | DX: L97.212 Non-pressure chronic ulcer of right calf with fat layer exposed (principal); L95.8 Other vasculitis limited to the skin; L03.115 Cellulitis of right lower limb; I87.331 Chronic venous hypertension (idiopathic) with ulcer and inflammation of right lower extremity; B96.5 Pseudomonas (aeruginosa) (mallei) (pseudomallei) as the cause of diseases classified elsewhere; G60.8 Other hereditary and idiopathic neuropathies ==

== ENCOUNTER → 2017-04-16 | Outpatient (CLI) | payer OTHER | LOC: LAB 12:10 | PROVIDERS: ATTEND Surgery | DX: L97.212 Non-pressure chronic ulcer of right calf with fat layer exposed (principal); L95.8 Other vasculitis limited to the skin; L03.115 Cellulitis of right lower limb; I87.331 Chronic venous hypertension (idiopathic) with ulcer and inflammation of right lower extremity; B96.5 Pseudomonas (aeruginosa) (mallei) (pseudomallei) as the cause of diseases classified elsewhere; G60.8 Other hereditary and idiopathic neuropathies | CPT/HCPCS: 36415; 84590 ==

== ENCOUNTER → 2017-04-23 | Outpatient (CLI) | payer OTHER | LOC: WOUNDCARE 11:00 | PROVIDERS: ATTEND Surgery | DX: L97.212 Non-pressure chronic ulcer of right calf with fat layer exposed (principal); L95.8 Other vasculitis limited to the skin; I87.331 Chronic venous hypertension (idiopathic) with ulcer and inflammation of right lower extremity; M30.1 Polyarteritis with lung involvement [Churg-Strauss]; G60.8 Other hereditary and idiopathic neuropathies; B96.5 Pseudomonas (aeruginosa) (mallei) (pseudomallei) as the cause of diseases classified elsewhere | CPT/HCPCS: 15271 ==

== ENCOUNTER → 2017-04-30 | Outpatient (CLI) | payer OTHER | LOC: WOUNDCARE 10:00 | PROVIDERS: ATTEND Surgery | DX: L97.212 Non-pressure chronic ulcer of right calf with fat layer exposed (principal); L95.8 Other vasculitis limited to the skin; I87.331 Chronic venous hypertension (idiopathic) with ulcer and inflammation of right lower extremity; M30.1 Polyarteritis with lung involvement [Churg-Strauss]; G60.8 Other hereditary and idiopathic neuropathies; B96.5 Pseudomonas (aeruginosa) (mallei) (pseudomallei) as the cause of diseases classified elsewhere | CPT/HCPCS: 11042; 15271 ==

== ENCOUNTER → 2017-05-07 | Outpatient (CLI) | payer OTHER | LOC: WOUNDCARE 10:24 | PROVIDERS: ATTEND Surgery | DX: L97.212 Non-pressure chronic ulcer of right calf with fat layer exposed (principal); L95.8 Other vasculitis limited to the skin; I87.331 Chronic venous hypertension (idiopathic) with ulcer and inflammation of right lower extremity; M30.1 Polyarteritis with lung involvement [Churg-Strauss]; G60.8 Other hereditary and idiopathic neuropathies; B96.5 Pseudomonas (aeruginosa) (mallei) (pseudomallei) as the cause of diseases classified elsewhere | CPT/HCPCS: 15271 ==

== ENCOUNTER 2017-05-12 10:30 | Outpatient (RCR) | payer OTHER ==
[2017-05-12 11:53] LABS: BASOPHILS % (AUTO) 0 % (0-10); BILIRUBIN,URINE NEGATIVE (NEGATIVE); CLARITY,URINE CLEAR; COLOR,URINE YELLOW; EOSINOPHILS % (AUTO) 0 % (0-10); GLUCOSE, URINE (UA) 4+ (NEGATIVE); HEMATOCRIT 32 % (40-54); HEMOGLOBIN 9.4 G/DL (13.3-17.7); KETONES,URINE 1+ (NEGATIVE); LEUKOCYTE ESTERASE ,URINE NEGATIVE (NEGATIVE); LYMPHOCYTES # (AUTO) 0.9 X 10^3 (1.0-4.0); LYMPHOCYTES % (AUTO) 11 % (12-44); MEAN CORPUSCULAR HEMOGLOBIN 26 PG (25-34); MEAN CORPUSCULAR HGB CONC 30 G/DL (32-36); MEAN CORPUSCULAR VOLUME 89 FL (80-99); MEAN PLATELET VOLUME 9.9 FL (7.4-10.4); MONOCYTES # (AUTO) 0.4 X 10^3 (0.0-1.0); MONOCYTES % (AUTO) 4 % (0-12); NEUTROPHILS # (AUTO) 7.2 X 10^3 (1.8-7.8); NEUTROPHILS % (AUTO) 84 % (42-75); NITRITE,URINE NEGATIVE (NEGATIVE); PH,URINE 5 (5-9); PLATELET COUNT 132 10^3/uL (130-400); PROTEIN,URINE 2+ (NEGATIVE); RED BLOOD COUNT 3.58 10^6/uL (4.35-5.85); RED CELL DISTRIBUTION WIDTH 18.4 % (10.0-14.5); UROBILINOGEN,URINE NORMAL (NORMAL); WHITE BLOOD COUNT 8.5 10^3/uL (4.3-11.0)
[2017-05-12 12:10] LABS: ALANINE AMINOTRANSFERASE 24 U/L (0-55); ALBUMIN 3.3 GM/DL (3.2-4.5); ALKALINE PHOSPHATASE 100 U/L (40-136); BILIRUBIN,TOTAL 0.4 MG/DL (0.1-1.0); BUN/CREATININE RATIO 29; CALCIUM 8.6 MG/DL (8.5-10.1); CARBON DIOXIDE 29 MMOL/L (21-32); CHLORIDE 97 MMOL/L (98-107); CREATININE SERUM 1.19 MG/DL (0.60-1.30); GFR ESTIMATED > 60; GLUCOSE 224 MG/DL (70-105); SODIUM 139 MMOL/L (135-145); TOTAL PROTEIN 7.4 GM/DL (6.4-8.2)
[2017-05-12 12:16] LABS: BACTERIA,URINE TRACE /HPF
[2017-05-12 12:26] LABS: ERYTHROCYTE SEDIMENTATION RATE 68 MM/HR (0-30)
[2017-07-18] MEDS ORDERED: LEVO500T2 PO (10:54)
[2017-07-18] MEDS ORDERED: AZIT250T12 PO (10:54)
[2017-07-18] MEDS ORDERED: BUDE10.2 IH (10:54)
[2017-07-18] MEDS ORDERED: DILT180C82 PO (10:54)
[2017-07-18] MEDS ORDERED: PRD20T PO (10:54)
[2017-07-18] MEDS ORDERED: ALBU2.5V4 NEB (10:54)
[2017-07-18] MEDS ORDERED: HYDR-3820 PO (10:54)
[2017-07-18] MEDS ORDERED: UMEC62.5 IH (10:54)
[2017-07-18] MEDS ORDERED: LOSA25TA21 PO (10:54)
[2017-07-18] MEDS ORDERED: TEST1PAT7 TD (10:54)
[2017-07-18] MEDS ORDERED: IPRA4AER IH (10:54)
[2017-07-18] MEDS ORDERED: MULT-35 PO (11:37)
[2017-07-18] MEDS ORDERED: ACET-168 PO (11:37)
[2017-07-18] MEDS ORDERED: CHOL10007 PO (11:37)
[2017-07-18] MEDS ORDERED: SODI473S7 TOP (11:37)
[2017-07-18] MEDS ORDERED: SENN-36 PO (11:37)
== END 2017-08-10 | disposition home or self-care (01) ==
LOC: LAB 10:30 → EDSTATUS 10:40
PROVIDERS: ATTEND Internal Medicine
DX: I77.6 Arteritis, unspecified (principal)
CPT/HCPCS: 36415; 80053; 81000; 85025; 85652; 86141; 87088

== ENCOUNTER 2017-05-13 08:09 | Outpatient (RCR) | payer OTHER | END 2017-05-13 11:45 | disposition home or self-care (01) | LOC: WOUNDCARE 08:09 | PROVIDERS: ATTEND Surgery | DX: L97.212 Non-pressure chronic ulcer of right calf with fat layer exposed (principal); L95.8 Other vasculitis limited to the skin; I87.331 Chronic venous hypertension (idiopathic) with ulcer and inflammation of right lower extremity; G60.8 Other hereditary and idiopathic neuropathies; B96.5 Pseudomonas (aeruginosa) (mallei) (pseudomallei) as the cause of diseases classified elsewhere | CPT/HCPCS: 36415; 80200; 82962; 99183 ==

== ENCOUNTER → 2017-05-14 | Outpatient (CLI) | payer OTHER | LOC: WOUNDCARE 10:31 | PROVIDERS: ATTEND Surgery | DX: I87.331 Chronic venous hypertension (idiopathic) with ulcer and inflammation of right lower extremity (principal); L97.212 Non-pressure chronic ulcer of right calf with fat layer exposed; L95.8 Other vasculitis limited to the skin; M30.1 Polyarteritis with lung involvement [Churg-Strauss]; G60.8 Other hereditary and idiopathic neuropathies; B96.5 Pseudomonas (aeruginosa) (mallei) (pseudomallei) as the cause of diseases classified elsewhere | CPT/HCPCS: 15271; 87070; 87075; 87205 ==

== ENCOUNTER → 2017-05-21 | Outpatient (CLI) | payer OTHER | LOC: WOUNDCARE 10:30 | PROVIDERS: ATTEND Surgery | DX: I87.331 Chronic venous hypertension (idiopathic) with ulcer and inflammation of right lower extremity (principal); L97.212 Non-pressure chronic ulcer of right calf with fat layer exposed; L95.8 Other vasculitis limited to the skin; M30.1 Polyarteritis with lung involvement [Churg-Strauss]; G60.8 Other hereditary and idiopathic neuropathies; B96.5 Pseudomonas (aeruginosa) (mallei) (pseudomallei) as the cause of diseases classified elsewhere | CPT/HCPCS: 15271; 15272 ==

== ENCOUNTER → 2017-05-28 | Outpatient (CLI) | payer OTHER | LOC: WOUNDCARE 10:22 | PROVIDERS: ATTEND Surgery | DX: I87.331 Chronic venous hypertension (idiopathic) with ulcer and inflammation of right lower extremity (principal); L97.212 Non-pressure chronic ulcer of right calf with fat layer exposed; L95.8 Other vasculitis limited to the skin; M30.1 Polyarteritis with lung involvement [Churg-Strauss]; G60.8 Other hereditary and idiopathic neuropathies; B96.5 Pseudomonas (aeruginosa) (mallei) (pseudomallei) as the cause of diseases classified elsewhere | CPT/HCPCS: 15271; 15272 ==

== ENCOUNTER → 2017-06-04 | Outpatient (CLI) | payer OTHER | LOC: WOUNDCARE 10:29 | PROVIDERS: ATTEND Surgery | DX: I87.331 Chronic venous hypertension (idiopathic) with ulcer and inflammation of right lower extremity (principal); L97.212 Non-pressure chronic ulcer of right calf with fat layer exposed; L95.8 Other vasculitis limited to the skin; M30.1 Polyarteritis with lung involvement [Churg-Strauss]; G60.8 Other hereditary and idiopathic neuropathies; B96.5 Pseudomonas (aeruginosa) (mallei) (pseudomallei) as the cause of diseases classified elsewhere | CPT/HCPCS: 11042; 11045 ==

== ENCOUNTER → 2017-06-11 | Outpatient (CLI) | payer OTHER | LOC: WOUNDCARE 09:52 | PROVIDERS: ATTEND Surgery | DX: I87.331 Chronic venous hypertension (idiopathic) with ulcer and inflammation of right lower extremity (principal); L97.212 Non-pressure chronic ulcer of right calf with fat layer exposed; L95.8 Other vasculitis limited to the skin; M30.1 Polyarteritis with lung involvement [Churg-Strauss]; G60.8 Other hereditary and idiopathic neuropathies; B96.5 Pseudomonas (aeruginosa) (mallei) (pseudomallei) as the cause of diseases classified elsewhere | CPT/HCPCS: 15271; 15272; 87070; 87075; 87077; 87186; 87205 ==

== ENCOUNTER → 2017-06-18 | Outpatient (CLI) | payer OTHER | LOC: WOUNDCARE 10:28 | PROVIDERS: ATTEND Surgery | DX: L97.212 Non-pressure chronic ulcer of right calf with fat layer exposed (principal); I87.331 Chronic venous hypertension (idiopathic) with ulcer and inflammation of right lower extremity; L95.8 Other vasculitis limited to the skin; M30.1 Polyarteritis with lung involvement [Churg-Strauss]; G60.8 Other hereditary and idiopathic neuropathies; B96.5 Pseudomonas (aeruginosa) (mallei) (pseudomallei) as the cause of diseases classified elsewhere | CPT/HCPCS: 15271 ==

== ENCOUNTER → 2017-06-25 | Outpatient (CLI) | payer OTHER | LOC: WOUNDCARE 10:33 | PROVIDERS: ATTEND Surgery | DX: I87.331 Chronic venous hypertension (idiopathic) with ulcer and inflammation of right lower extremity (principal); L97.212 Non-pressure chronic ulcer of right calf with fat layer exposed; L95.8 Other vasculitis limited to the skin; M30.1 Polyarteritis with lung involvement [Churg-Strauss]; G60.8 Other hereditary and idiopathic neuropathies | CPT/HCPCS: 11042; 11045 ==

== ENCOUNTER 2017-07-01 10:27 | Outpatient (RCR) | payer OTHER ==
[2017-04-07 13:11] VITALS: BP 155/99
[2017-04-21 11:25] VITALS: BP 163/103
[2017-04-28 11:35] VITALS: BP 147/91
[2017-05-12 11:50] VITALS: BP 144/83
[2017-05-19 11:05] VITALS: BP 153/86
[2017-06-02 10:49] VITALS: BP 147/78
[2017-06-09 11:15] VITALS: BP 167/88
[2017-06-24 11:25] VITALS: BP 151/88
[~2017-07-01] VITALS: Ht 177.8 cm; Wt 98.0 kg
[2017-07-01 10:50] VITALS: BP 153/94
== END 2017-07-06 | disposition home or self-care (01) ==
LOC: SDC 10:27
PROVIDERS: ATTEND Surgery
DX: L97.212 Non-pressure chronic ulcer of right calf with fat layer exposed (principal); L95.8 Other vasculitis limited to the skin; I70.232 Atherosclerosis of native arteries of right leg with ulceration of calf; I87.331 Chronic venous hypertension (idiopathic) with ulcer and inflammation of right lower extremity
CPT/HCPCS: 99211; 99212

== ENCOUNTER → 2017-07-02 | Outpatient (CLI) | payer OTHER | LOC: WOUNDCARE 10:33 | PROVIDERS: ATTEND Surgery | DX: I87.331 Chronic venous hypertension (idiopathic) with ulcer and inflammation of right lower extremity (principal); L97.212 Non-pressure chronic ulcer of right calf with fat layer exposed; L95.8 Other vasculitis limited to the skin; M30.1 Polyarteritis with lung involvement [Churg-Strauss]; G60.8 Other hereditary and idiopathic neuropathies | CPT/HCPCS: 15271; 15272 ==

== ENCOUNTER → 2017-07-09 | Outpatient (CLI) | payer OTHER | LOC: WOUNDCARE 10:28 | PROVIDERS: ATTEND Surgery | DX: I87.331 Chronic venous hypertension (idiopathic) with ulcer and inflammation of right lower extremity (principal); L97.212 Non-pressure chronic ulcer of right calf with fat layer exposed; L95.8 Other vasculitis limited to the skin; M30.1 Polyarteritis with lung involvement [Churg-Strauss]; G60.8 Other hereditary and idiopathic neuropathies | CPT/HCPCS: 11042 ==

== ENCOUNTER 2017-07-14 12:05 | Outpatient (RCR) | payer OTHER ==
[~2017-07-14] VITALS: Ht 177.8 cm; Wt 98.0 kg
[2017-07-14 11:55] VITALS: BP 156/82
[2017-07-18] MEDS ORDERED: HYDR-3820 PO (10:54)
[2017-07-18] MEDS ORDERED: TEST1PAT7 TD (10:54)
[2017-07-18] MEDS ORDERED: BUDE10.2 IH (10:54)
[2017-07-18] MEDS ORDERED: ALBU2.5V4 NEB (10:54)
[2017-07-18] MEDS ORDERED: LOSA25TA21 PO (10:54)
[2017-07-18] MEDS ORDERED: UMEC62.5 IH (10:54)
[2017-07-18] MEDS ORDERED: IPRA4AER IH (10:54)
[2017-07-18] MEDS ORDERED: PRD20T PO (10:54)
[2017-07-18] MEDS ORDERED: AZIT250T12 PO (10:54)
[2017-07-18] MEDS ORDERED: LEVO500T2 PO (10:54)
[2017-07-18] MEDS ORDERED: DILT180C82 PO (10:54)
[2017-07-18] MEDS ORDERED: SODI473S7 TOP (11:37)
[2017-07-18] MEDS ORDERED: ACET-168 PO (11:37)
[2017-07-18] MEDS ORDERED: CHOL10007 PO (11:37)
[2017-07-18] MEDS ORDERED: SENN-36 PO (11:37)
[2017-07-18] MEDS ORDERED: MULT-35 PO (11:37)
== END 2017-10-12 | disposition home or self-care (01) ==
LOC: SDC 12:05
PROVIDERS: ATTEND Surgery
DX: L97.212 Non-pressure chronic ulcer of right calf with fat layer exposed (principal); L95.8 Other vasculitis limited to the skin; I70.232 Atherosclerosis of native arteries of right leg with ulceration of calf; I87.331 Chronic venous hypertension (idiopathic) with ulcer and inflammation of right lower extremity

== ENCOUNTER → 2017-07-14 | Outpatient (CLI) | payer OTHER | LOC: LAB 12:08 | PROVIDERS: ATTEND Internal Medicine | DX: J40 Bronchitis, not specified as acute or chronic (principal); M30.1 Polyarteritis with lung involvement [Churg-Strauss] | CPT/HCPCS: 87070; 87205; 99212 ==

== ENCOUNTER → 2017-07-16 | Outpatient (CLI) | payer OTHER ==
[~2017-07-16] MED LIST changes: +ACET-168 PO; +ALBU2.5V4 NEB; +AZIT250T12 PO; +BUDE10.2 IH; +CHOL10007 PO; +DILT180C82 PO; +IPRA4AER IH; +LEVO500T2 PO; +LOSA25TA21 PO; +MULT-35 PO; +SODI473S7 TOP; +UMEC62.5 IH
== END ==
LOC: WOUNDCARE 10:31
PROVIDERS: ATTEND Surgery
DX: I87.331 Chronic venous hypertension (idiopathic) with ulcer and inflammation of right lower extremity (principal); L97.212 Non-pressure chronic ulcer of right calf with fat layer exposed; L95.8 Other vasculitis limited to the skin; M30.1 Polyarteritis with lung involvement [Churg-Strauss]; G60.8 Other hereditary and idiopathic neuropathies
CPT/HCPCS: 11042; 15271

== ENCOUNTER → 2017-07-16 | Outpatient (CLI) | payer OTHER | LOC: LAB 10:47 | PROVIDERS: ATTEND Internal Medicine | DX: J40 Bronchitis, not specified as acute or chronic (principal); M30.1 Polyarteritis with lung involvement [Churg-Strauss] | CPT/HCPCS: 87070; 87205 ==

== ENCOUNTER 2017-07-17 16:13 | Inpatient (IN) | payer OTHER ==
[2017-07-17] VITALS (8 sets, daily range): BP systolic 154–192; BP diastolic 82–107
[~2017-07-17] VITALS: Ht 179.1 cm; Wt 102.3 kg
[~2017-07-17 16:13] MED LIST changes: -ACET-168 PO; -ALBU2.5V4 NEB; -AZIT250T12 PO; -BUDE10.2 IH; -CHOL10007 PO; -DILT180C82 PO; -IPRA4AER IH; -LEVO500T2 PO; -LOSA25TA21 PO; -MULT-35 PO; -SODI473S7 TOP; -UMEC62.5 IH
--- OUTSIDE RECORDS SUMMARY | 2017-07-17 16:55 | XMS REPORT | Continuity of Care Document ---
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 Name Role Phone [employer] Unavailable Unavailable Problems Medications Allergies, Adverse Reactions, Alerts Immunizations Results Vital Signs Encounters Location Location Details Encounter Type Encounter Number Reason For Visit Attending Provider ADM Date DC Date Status Source OUTPATIENT [id number] EPICRIS MARCOS 08/02/2016 08/02/2016 Active [facility] OUTPATIENT [id number] LAURIE FITCH 04/14/20172016 Active [facility] OUTPATIENT [id number] EMILY ROMERO 06/05/20172016 Active [facility] OUTPATIENT [id number] LAURIE FITCH 06/26/20172016 Active [facility] Yonis ESQUEDA Active [facility] Procedures Plan of Care Social History Assessment and Plan Family History Advance Directives Functional Status
--- OUTSIDE RECORDS SUMMARY | 2017-07-17 16:55 | XMS REPORT | Clinical Summary ---
Author Author [facility] Organization [facility] Address Unknown Phone Unavailable Care Team Providers Care Coat Operator Name Role Phone PCP Unavailable Source Comments Some departments are not documenting in the electronic medical record. If you do not see the information that you expected, contact Release of Information in the Health Information Management department at [phone] for further assistance in locating additional records.[facility] Allergies Active Allergy Reactions Severity Noted Date Comments Amoxicillin (Bulk) STOMACH UPSET, NAUSEA AND Low 12/17/2010 Pt reported able to VOMITING tolerate for [...] mouth 60 Tab 1 11/02/19 Active mg tabletIndications: daily. To be taken with 15 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syndrome other 5mg prednisone (HCC) tablets. Will taper from 15mg by 1mg every 2 weeks to a goal of 10mg daily LORATADINE (CLARITIN PO) Take 1 Tab by mouth daily Active as needed. pantoprazole DR Take 40 mg by mouth Active (PROTONIX) 40 mg tablet daily. potassium chloride(+) Take 16 mEq by mouth Active (KLOR-CON 8) 8 mEq tablet daily. HYDROcodone/acetaminophen Take 1-2 Tabs by mouth Active [...] mcg/2.4 skin daily. mL pnij injection pen vitamins, B complex tab Take 1 Tab by mouth Active daily. Testosterone (ANDRODERM) Apply 1 Patch to top of Active 4 mg/24 hr pt24 skin as directed. voriconazole (VFEND) 200 Take 200 mg by mouth Active mg tablet twice daily. bumetanide (BUMEX) 2 mg Take 2 mg by mouth daily. Active tablet voriconazole (VFEND) 200 TAKE 1 TABLET BY MOUTH 60 tablet 7 05/30/20 Active mg tabletIndications: TWICE DAILY FOR 240 DAYS 17 Histoplasmosis diltiazem CD (CARDIZEM Take 180 mg by mouth at Active CD) 180 mg capsule bedtime daily. losartan (COZAAR) 25 mg Take 1 tablet by mouth 90 tablet 3 06/05/20 Active tablet daily. 17 umeclidinium(+) (INCRUSE Inhale 1 puff by mouth Active ELLIPTA) 62.5 into the lungs daily. mcg/actuation inhalation disk senna (SENOKOT) 8.6 mg Take 2 tablets by mouth Active tablet daily as needed for Constipation. acetaminophen (TYLENOL) Take 500 mg by mouth 06/26/20 Discontin 500 mg tablet every 6 hours as needed 17 ued for Pain. CALCIUM CARBONATE/VITAMIN Take 2,700 Int'l Units by 06/26/20 Discontin D3 (VITAMIN D-3 PO) mouth. 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 03/19/2011 Joint pain 12/17/2010 Encounter for long-term (current) use of high-risk medication 12/17/2010 Encounter for long-term (current) use of steroids 12/17/2010 Vasculitis (HCC) 12/17/2010 Peripheral edema 12/17/2010 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 Resolved Problems Problem Noted Date Resolved Date Sepsis ([facility]) 2014 06/09/2017 Encounters Date Type Specialty Care Team Description 07/09/2017 Telephone Allergy,Immunology and Felipe Mancia MD Results Rheumatology 07/03/2017 Telephone Allergy,Immunology and Felipe Mancia MD Follow-up Phone Call ([facility] Progress note) 06/26/2017 Hospital Lab Viraj Branch MD Polyarteritis with lung Encounter involvement (churg-kunal) ([facility]) 06/26/2017 Office Visit Allergy,Immunology and Felipe Mancia MD 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syndrome Rheumatology ([facility]) (Primary Dx);Stage 3 chronic kidney disease;Disseminated histoplasmosis;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;Osteopenia, unspecified location 06/16/2017 Telephone Allergy,Immunology and Felipe Mancia MD Results Rheumatology 06/05/2017 Hospital Lab Tyshawn Putnam MD Histoplasmosis, Encounter unspecified 06/05/2017 Office Visit Nephrology Viraj Branch MD Chronic kidney disease, Jessica Crwaley MD unspecified CKD stage (Primary Dx);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 Infectious Diseases Tyshawn Putnam MD Antibiotic Therapy 05/27/2017 Telephone Allergy,Immunology and Felipe Mancia MD FYI Rheumatology 05/14/2017 Orders Only Allergy,Immunology and Felipe Mancia MD Vasculitis (HCC) Rheumatology 05/12/2017 Documentation Allergy,Immunology and Felipe Mancia MD Rheumatology 05/06/2017 Telephone Allergy,Immunology and Felipe Mancia MD Medication Question Rheumatology (Heparin) 04/30/2017 Telephone Allergy,Immunology and Felipe Mancia MD Labs Only (standing) Rheumatology 04/17/2017 Outpt. Infectious Diseases Tyshawn Putnam MD Antibiotic Therapy 04/16/2017 Telephone Allergy,Immunology and Felipe Mancia MD Results Rheumatology 04/16/2017 Telephone Infectious Diseases Tyshawn Putnam MD Results from Last 3 Months Immunizations Name Dates Previously Given Next Due Pneumococcal Vaccine 08/02/2016, 07/28/2014 (23-[facility] Adult) Pneumococcal 06/01/2013 Vaccine(13-[facility] Peds/immunocompromised adult) Family History Medical History Relation Name Comments Other Father Polyarteritis [place] Cancer Maternal cancer-nose Grandfather Arthritis-osteo Mother Arthritis-rheumatoid Mother Asthma Mother Cancer Mother leukemia Stroke Paternal Grandfather Relation Name Status Comments Father Maternal Grandfather Mother Paternal Grandfather Social History Tobacco Use Types Packs/Day Years Used Date Former Smoker Cigarettes 0.5 20 Quit: 06/30/1993 Smokeless Tobacco: Never Used Tobacco Cessation: Counseling Given: No Alcohol Use Drinks/Week oz/Week Comments No 0 Standard 0.0 drinks or equivalent Sex Assigned at Date Recorded Not on file Last Filed Vital Signs Vital Sign Reading Time Taken Blood Pressure 164/82 06/26/2017 10:55 AM COMMERCIAL INSULATOR Pulse 77 06/26/2017 10:55 AM COMMERCIAL INSULATOR Temperature 36.7 C (98.1 F) 06/26/2017 10:55 AM COMMERCIAL INSULATOR Respiratory Rate 16 06/26/2017 10:55 AM COMMERCIAL INSULATOR Oxygen Saturation 98% 06/26/2017 10:55 AM COMMERCIAL INSULATOR Inhaled Oxygen - - Concentration Weight 102.7 kg (226 lb 6.4 oz) 06/26/2017 10:55 AM COMMERCIAL INSULATOR Height 177.8 cm (5' 10") 06/26/2017 10:55 AM COMMERCIAL INSULATOR Body Mass Index 32.49 06/26/2017 10:55 AM COMMERCIAL INSULATOR Plan of Treatment Health Maintenance Due Date Last Done Comments HEPATITIS C SCREENING 1955 PHYSICAL (COMPREHENSIVE) 1962 EXAM PERTUSSIS VACCINE 1966 TETANUS VACCINE 1972 COLORECTAL CANCER 2005 SCREENING SHINGLES VACCINE 2015 INFLUENZA VACCINE 01/28/2017 Results * 25-OH VITAMIN D (D2 + D3) (06/26/2017 12:44 PM) Component Value Ref Range Vitamin D(25-OH)Total 23.2 (L) 30 - 80 NG/ML Specimen Performing Laboratory Blood MAIN LAB [address] [place] [address] * SED RATE (06/26/2017 12:44 PM) Only the most recent of 3 results within the time period is included. Component Value Ref Range Sed Rate -ESR 45 (H) 0 - 20 MM/HR Specimen Performing Laboratory Blood MAIN LAB [address] [place] [address] * CBC AND DIFF (06/26/2017 12:44 PM) Only the most recent of 3 results within the time period is included. Component Value Ref Range White Blood Cells 9.7 4.5 - 11.0 K/UL RBC 3.80 (L) 4.4 - 5.5 M/UL Hemoglobin 10.2 (L) 13.5 - 16.5 GM/DL Hematocrit 31.8 (L) 40 - 50 % MCV 83.6 80 - 100 FL MCH 26.7 26 - 34 PG MCHC 32.0 32.0 - 36.0 G/DL RDW 17.9 (H) 11 - 15 % Platelet Count 179 150 - 400 K/UL MPV 7.1 7 - 11 FL Neutrophils 86 (H) 41 - 77 % Lymphocytes 10 (L) 24 - 44 % Monocytes 4 4 - 12 % Eosinophils 0 0 - 5 % Basophils 0 0 - 2 % Absolute Neutrophil Count 8.30 (H) 1.8 - 7.0 K/UL Absolute Lymph Count 1.00 1.0 - 4.8 K/UL Absolute Monocyte Count 0.40 0 - 0.80 K/UL Absolute Eosinophil Count 0.00 0 - 0.45 K/UL Absolute Basophil Count 0.00 0 - 0.20 K/UL Specimen Performing Laboratory Blood MAIN LAB [address] [place] [address] * C REACTIVE PROTEIN (CRP) (06/26/2017 12:44 PM) Only the most recent of 2 results within the time period is included. Component Value Ref Range C-Reactive Protein 2.32 (H) <1.0 MG/DL Specimen Performing Laboratory Blood MAIN LAB [address] [place] [address] * HEMOGLOBIN A1C (06/26/2017 12:44 PM) Component Value Ref Range Hemoglobin A1C 7.7 (H) 4.0 - 6.0 % Comment: The ADA recommends that most patients with type 1 and type 2 diabetes maintain an A1c level <7%. Specimen Performing Laboratory Blood MAIN LAB [address] [place] [address] * COMPREHENSIVE METABOLIC PANEL (06/26/2017 12:44 PM) Only the most recent of 3 results within the time period is included. Component Value Ref Range Sodium 141 137 - 147 MMOL/L Potassium 4.8 3.5 - 5.1 MMOL/L Chloride 105 98 - 110 MMOL/L Glucose 198 (H) 70 - 100 MG/DL Blood Urea Nitrogen 22 7 - 25 MG/DL Creatinine 1.06 0.4 - 1.24 MG/DL Calcium 9.1 8.5 - 10.6 MG/DL Total Protein 7.8 6.0 - 8.0 G/DL Total Bilirubin 0.3 0.3 - 1.2 MG/DL Albumin 3.7 3.5 - 5.0 G/DL Alk Phosphatase 112 (H) 25 - 110 U/L AST (SGOT) 16 7 - 40 U/L CO2 28 21 - 30 MMOL/L ALT (SGPT) 16 7 - 56 U/L Anion Gap 8 3 - 12 eGFR Non >60 >60 mL/min Comment: The eGFR is not validated for use in drug dosing adjustments. Continue to use estimated creatinine clearance per dosing reference text. Please contact the Clinical Pharmacist for questions. eGFR >60 >60 mL/min Comment: The eGFR is not validated for use in drug dosing adjustments. Continue to use estimated creatinine clearance per dosing reference text. Please contact the Clinical Pharmacist for questions. Specimen Performing Laboratory Blood MAIN LAB [address] [place] [address] * POC URINE DIPSTICK AUTO READ WITH MICROSCOPY (06/26/2017) Component Value Ref Range Urine Glucose POC 250 Urine Bilirubin POC Negative Urine Ketone POC Negative Urine Specific [place] 1.025 POC Urine Blood POC 50 Urine PH POC 5 Urine Protein POC 30 Urine Urobilinogen POC Normal Urine Nitrite POC Negative Urine Leukocytes POC Negative Color,UA Yellow Turbidity,UA Clear WBCs,UA 0-2 RBCs,UA 5-10 Squamous Epithelial Cells 0-2 MucousUA Negative Casts,UA Urine Comment Specimen Performing Laboratory Urine IN CLINIC * VORICONAZOLE LC-MS/MS (06/05/2017 3:40 PM) Component Value Ref Range Voriconazole, Serum 2.9 Comment: Reference range: 1.0 to 5.5 Unit: mcg/mL The range listed under reference range refers to the target therapeutic range. *This test was developed and its performance characteristics determined by [facility]. It has not been cleared or approved by the U.S. Food and Drug Administration. Testing Performed At: [facility] [address] [place] [address] CLIA ID: [id number] Specimen Performing Laboratory Blood REFERENCE LAB * HISTOPLASMA AG, SERUM (06/05/2017 3:40 PM) Component Value Ref Range Result, Histoplasma Below the Limit of Quantification AG,Serum Unit: ng/mL Comment, Histoplasma Positive AG,Serum ADDITIONAL INFORMATION Reference interval: None Detected Results reported as ng/mL in 0.4 - 19 ng/mL range Results above the limit of detection but below 0.4 ng/mL are reported as 'Positive, Below the Limit of Quantification' Results above 19.0 ng/mL are reported as 'Positive, Above the Limit of Quantification' This test was developed and its performance characteristics determined by [facility] [facility]. It has not been cleared or approved by the FDA; however, FDA clearance or approval is not currently required for clinical use. The results are not intended to be used as the sole means for clinical diagnosis or patient management decisions. Test Performed by: [facility] [address] [place] [address] Specimen Performing Laboratory Blood REFERENCE LAB * POC URINE DIPSTICK AUTO READ (06/05/2017) Component Value Ref Range Urine Glucose POC >1000 Urine Bilirubin POC 1 Urine Ketone POC 15 Urine Specific [place] 1.015 POC Urine Blood POC 250 Urine PH POC 5 Urine Protein POC 30 Urine Urobilinogen POC norm Urine Nitrite POC neg Urine Leukocytes POC neg Color,UA Turbidity,UA Specimen Performing Laboratory Urine IN CLINIC * URINALYSIS DIPSTICK (05/12/2017) Specimen Performing Laboratory Urine OTHER OUTSIDE LAB from Last 3 Months
--- OUTSIDE RECORDS SUMMARY | 2017-07-17 16:56 | XMS REPORT | Encounter Summary ---
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 Name Role Phone PCP Unavailable Reason for Visit * Reason Comments Follow-up Phone Call [facility] Progress note Encounter Details Date Type Department Care Team Description 07/03/2017 Telephone [facility] Felipe Mancia MD Follow-up Phone Call ([facility] Physicians - Internal [address] Infusion Progress note) Medicine [address] [place] [address] MED [phone] [place] [address] Social History Tobacco Use Types Packs/Day Years Used Date Former Smoker Cigarettes 0.5 20 Quit: 06/30/1993 Smokeless Tobacco: Never Used Alcohol Use Drinks/Week oz/Week Comments No 0 Standard 0.0 drinks or equivalent Sex Assigned at Date Recorded Not on file as of this encounter Functional Status Functional Status Response Date of Assessment Does the patient have a hearing impairment: No 10/03/2014 Does the patient have a visual impairment: No 10/03/2014 Does the patient have impaired ambulation: No 10/03/2014 Does the patient have an activity of daily living No 10/03/2014 (ADL) impairment: Does the patient have an instrumental activity of No 10/03/2014 daily living (IADL) impairment: Cognitive Status Response Date of Assessment Does the patient have a cognitive impairment: No 10/03/2014 as of this encounter Miscellaneous Notes * Telephone Encounter - Lukasz Rosario RN - 07/07/2017 9:36 AM BLEACHER PULP Faxed to [facility] to fax number [phone]. Signed Orders. Placing in [employer]. Received fax confirmation * Telephone Encounter - Lukasz Rosario RN - 07/03/2017 3:38 PM BLEACHER [employer]ULP Received fax from [facility] Infusion services with progress note. Placing in [employer]Now in this encounter Plan of Treatment Not on fileas of this encounter Visit Diagnoses Not on filein this encounter
--- OUTSIDE RECORDS SUMMARY | 2017-07-17 16:56 | XMS REPORT | Encounter Summary ---
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 [place] [address] [address] [place] [address] [phone] Social History Tobacco Use Types Packs/Day Years [...] impairment: No 10/03/2014 as of this encounter Medications at Time of Discharge Medication Sig. Disp. Refills Start Date End Date albuterol (ACCUNEB) 0.63 Inhale 0.63 mg solution mg/3 mL nebulizer as directed every 6 hours solution as needed. budesonide/formoterol,+, Inhale 2 Puffs by mouth (SYMBICORT) 160/4.5 mcg twice daily. HFAA inhalation bumetanide (BUMEX) 2 mg Take 2 mg by mouth daily. tablet diltiazem CD (CARDIZEM Take 180 mg by mouth at CD) 180 mg capsule bedtime daily. HYDROcodone/acetaminophen Take 1-2 Tabs by mouth (NORCO; VICODIN) 5-325 mg every 8 hours as needed tablet for Pain (Pt reports that he is taking 2 tabs total per day) immune globulin 10% 25 grams IV daily for 25 g 6 10/13/2015 (GAMUNEX) 10 g/100 mL in four days, then every 4 0 mL IV infusion weeks for 3 months. ipratropium/albuterol Inhale 2 Puffs by mouth (COMBIVENT) 103/18 As Needed for Wheezing. mcg/Actuation inhaler LORATADINE (CLARITIN PO) Take 1 Tab by mouth daily as needed. losartan (COZAAR) 25 mg Take 1 tablet by mouth 90 tablet 3 06/05/2017 tablet daily. MULTIVITAMIN Take 1 Tab by mouth W-MINERALS/LUTEIN daily. (CENTRUM SILVER PO) pantoprazole DR Take 40 mg by mouth (PROTONIX) 40 mg tablet daily. potassium chloride(+) Take 16 mEq by mouth (KLOR-CON 8) 8 mEq tablet daily. predniSONE (DELTASONE) 1 Take 1 Tab by mouth 60 Tab 1 11/01/2014 mg tabletIndications: daily. To be taken with 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syndrome other 5mg prednisone (HCC) tablets. Will taper from 15mg by 1mg every 2 weeks to a goal of 10mg daily teriparatide(+) (FORTEO) Inject 20 mcg under the 20 mcg/dose - 600 mcg/2.4 skin daily. mL pnij injection pen Testosterone (ANDRODERM) Apply 1 Patch to top of 4 mg/24 hr pt24 skin as directed. vitamins, B complex tab Take 1 Tab by mouth daily. voriconazole (VFEND) 200 TAKE 1 TABLET BY MOUTH 60 tablet 7 2016 mg tabletIndications: TWICE DAILY FOR 240 DAYS Histoplasmosis voriconazole (VFEND) 200 Take 200 mg by mouth mg tablet twice daily. zolpidem (AMBIEN) 5 mg Take 5 mg by mouth at tablet bedtime as needed. acetaminophen (TYLENOL) Take 500 mg by mouth 06/26/2017 500 mg tablet every 6 hours as needed for Pain. CALCIUM CARBONATE/VITAMIN Take 2,700 Int'l Units by 06/26/2017 D3 (VITAMIN D-3 PO) mouth. as of this encounter Plan of Treatment Not on fileas of this encounter Results * VORICONAZOLE LC-MS/MS (06/05/2017 3:40 PM) Component Value Ref Range Voriconazole, Serum 2.9 Comment: Reference range: 1.0 to 5.5 Unit: mcg/mL The range listed under reference range refers to the target therapeutic range. *This test was developed and its performance characteristics determined by [facility]. It has not been cleared or approved by the U.S. Food and Drug Administration. Testing Performed At: [facility] [address] [place] [id number] CLIA ID: [id number] Specimen Performing Laboratory Blood REFERENCE LAB * [...] developed and its performance characteristics determined by [employer]. It has not been cleared or approved by the FDA; however, FDA clearance or approval is not currently required for clinical use. The results are not intended to be used as the sole means for clinical diagnosis or patient management decisions. Test Performed by: [facility] [address] [place] [address] Specimen Performing Laboratory Blood REFERENCE LAB * SED RATE (06/05/2017 3:40 PM) Component Value Ref Range Sed Rate -ESR 48 (H) 0 - 20 MM/HR Specimen Performing Laboratory Blood MAIN LAB [address] [place] [address] * C REACTIVE PROTEIN (CRP) (06/05/2017 3:40 PM) Component Value Ref Range C-Reactive Protein 1.51 (H) <1.0 MG/DL Specimen Performing Laboratory Blood MAIN LAB [address] [place] [address] * COMPREHENSIVE METABOLIC PANEL (06/05/2017 3:40 PM) Component Value Ref Range Sodium 140 137 - 147 MMOL/L Potassium 4.6 3.5 - 5.1 MMOL/L Chloride 98 98 - 110 MMOL/L Glucose 230 (H) 70 - 100 MG/DL Blood Urea Nitrogen 33 (H) 7 - 25 MG/DL Creatinine 1.09 0.4 - 1.24 MG/DL Calcium 9.5 8.5 - 10.6 MG/DL Total Protein 8.1 (H) 6.0 - 8.0 G/DL Total Bilirubin 0.4 0.3 - 1.2 MG/DL Albumin 3.7 3.5 - 5.0 G/DL Alk Phosphatase 117 (H) 25 - 110 U/L AST (SGOT) 25 7 - 40 U/L CO2 31 (H) 21 - 30 MMOL/L ALT (SGPT) 22 7 - 56 U/L Anion Gap 11 3 - 12 eGFR Non >60 >60 [...] Specimen Performing Laboratory Blood MAIN LAB [address] [place] [address] * CBC AND DIFF (06/05/2017 3:40 PM) Component Value Ref Range White Blood Cells 8.3 4.5 - 11.0 K/UL RBC 3.81 (L) 4.4 - 5.5 M/UL Hemoglobin 10.1 (L) 13.5 - 16.5 GM/DL Hematocrit 31.9 (L) 40 - 50 % MCV 83.7 80 - 100 FL MCH 26.6 26 - 34 PG MCHC 31.8 (L) 32.0 - 36.0 G/DL RDW 19.6 (H) 11 - 15 % Platelet Count 178 150 - 400 K/UL MPV 7.1 7 - 11 FL Neutrophils 85 (H) 41 - 77 % Lymphocytes 10 (L) 24 - 44 % Monocytes 4 4 - 12 % Eosinophils 1 0 - 5 % Basophils 0 0 - 2 % Absolute Neutrophil Count 7.10 (H) 1.8 - 7.0 K/UL Absolute Lymph Count 0.80 (L) 1.0 - 4.8 K/UL Absolute Monocyte Count 0.30 0 - 0.80 K/UL Absolute Eosinophil Count 0.00 0 - 0.45 K/UL Absolute Basophil Count 0.00 0 - 0.20 K/UL Specimen Performing Laboratory Blood [facility] MAIN LAB [address] [place] [address] in this encounter Visit Diagnoses Diagnosis Vasculitis (HCC) Arteritis, unspecified Histoplasmosis Histoplasmosis, unspecified without mention of manifestation Encounter for long-term (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 Admitting Diagnoses Diagnosis Histoplasmosis, unspecified 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
--- OUTSIDE RECORDS SUMMARY | 2017-07-17 16:56 | XMS REPORT | Encounter Summary ---
Author Author [facility] Organization [facility] Address Unknown Phone Unavailable Care Team Providers Care Veterinary Laboratory Technician Name Role Phone PCP Unavailable Reason for Visit * Reason Comments Other EGPA Encounter Details Date Type Department Care Team Description 06/26/2017 Office Visit [facility] Felipe Mancia MD 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syndrome Physicians - Internal [address] (HCC) (Primary Dx);[facility] [place] [address] chronic kidney [address] [place] [address] disease;Disseminated [address] MED [phone] histoplasmosis;[facility] OFFICE BLDG current use of systemic [place] steroids;Osteopenia, [id number] unspecified location [phone] Social History Tobacco Use Types Packs/Day Years Used Date Former Smoker Cigarettes 0.5 20 Quit: 06/30/1993 Smokeless Tobacco: Never Used Alcohol Use Drinks/Week oz/Week Comments No 0 Standard 0.0 drinks or equivalent Sex Assigned at Date Recorded Not on file as of this encounter Last Filed Vital Signs Vital Sign Reading Time Taken Blood Pressure 164/82 06/26/2017 10:55 AM [facility] Pulse 77 06/26/2017 10:55 AM [facility] [employer] Temperature 36.7 C (98.1 F) 06/26/2017 10:55 AM [facility] [employer] Respiratory Rate 16 06/26/2017 10:55 AM [facility] [employer] Oxygen Saturation 98% 06/26/2017 10:55 AM [facility] [employer] Inhaled Oxygen - - Concentration Weight 102.7 kg (226 lb 6.4 oz) 06/26/2017 10:55 AM [facility] [employer] Height 177.8 cm (5' 10") 06/26/2017 10:55 AM [facility] [employer] Body Mass Index 32.49 06/26/2017 10:55 AM [facility] [employer] in this encounter Functional Status Functional Status Response [...] impairment: No 10/03/2014 as of this encounter Instructions * Patient Instructions - Felipe Mancia MD - 06/26/2017 11:00 AM [facility] [employer] Have labs done today. Continue to have labs done and sent to me every 4 weeks. Continue to try to decrease your prednisone by 1mg every 3-4 weeks down to 10mg daily as able. Please make sure you get 1200mg of calcium in your diet or via supplements. Take 2000 international units of Vitamin D. I will let you know if you need to take more than that. Please follow up with your ENT to have your hearing rechecked. Come to see me again in September For your hands, you can try biofreeze or arthritis gloves. in this encounter Progress Notes * Felipe Mancia MD - 06/26/2017 11:00 AM [facility] [employer] Formatting of this note may be different from the original. Subjective: History of Present Illness Lanre Diaz is a 62 y.o. male. Brief history: Lanre Diaz is a 62 y.o. male with history of GERD, Neuropathy, OA, Osteopenia, Diverticular disease, EGPA and family history of OLIVIA (father). He was diagnosed with EGPA in 2001 after presenting with asthma, nasal polyps, allergic rhinitis, foot drop and DAH. He was treated with IV CTX and high dose steroids. He was continued on PO Cytoxan for 4 years after that prior to being switched to cellcept and MTX. Due to previous hematuria, he did have cystoscopy in 2009, which was negative. He was initially seen at Rheumatology clinic by Dr. Emmanuel and Zara starting in 2010. He was maintained on cellcept, subcutaneous MTX and prednisone until hospitalization in 03/2014 for disseminated histoplasmosis (diagnosed via BMBx after developing pancytopenia). He was treated with amphotericin. MTX and cellcept were discontinued and he was continued on prednisone. 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 Due to refractory sinusitis in 07/2014, he was started on IVIG for EGPA, initially he was on 500mg daily for 4 days per month but this was decreased due to STANLEY. He was also started on Xolair around that time for asthma, He continued on Xolair for about 2 years. He is not sure that it was beneficial. He has continued to follow with Dr. Putnam of infectious disease and is on voriconazole 200mg BID for histoplasmosis. 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 Fernandez in [place], who is managing his asthma. His course has been complicated by GI bleeding in 2014 and osteopenia previously treated with fosamax x 5 years (d/c'ed in 2011) and now forteo. He is following with ENT for hearing loss. Since 12/2016, he has been struggling with right lower extremity wounds which developed after fall down the stairs in at [facility]. Since last visit in 03/2017 , patient has been evaluated by Dr. Crawley of Nephrology because of hematuria. He did have dysmorphic RBC's on urine microscopy but no casts. Given that renal function has been stable, we have not pursued renal biopsy or escalated his immunosuppression. He presents today for follow up. Interval history: He says he has been feeling so-so since his last appointment, which he attributes to his weight gain. He reports that his wound doctor is pleased with the progress on his right leg. He is getting synthetic grafts to the area. He says the wound is colonized with MRSA and pseudomonas. He is now on linezolid for a 10 days course. He also complains of easy tearing/bruising of the skin. He continues to get SOB with significant dyspnea on exertion. He is now using a new inhaler, Incruse, in addition to his symbicort which he thinks is helping. He denies hemoptysis. He is down to 15 mg of prednisone for the last few weeks and is planning to go to 14mg soon. The IVIG does help with his neuropathy, but he noticed that following his last IVIG infusion last week, the neuropathy has returned earlier. He currently has numbness to the level of the ankle bilaterally. He has not had any foot drop. Over the last month he has had more pain in his hands. Pain is in his MCP's. His joints are not swollen, red or warm. He does not have morning stiffness. He does think his hearing has gotten a little worse since last appointment. He has not been back to see the ENT. He has not had ear infection. He has not had any eye pain or redness. His vision in his right eye continues to be 20/40 due to tear (in the retina?). He denies eye photosensitivity or floaters. His sinuses are OK. He denies congestion, crusting, or epistaxis. He denies oral ulcers or dysphagia. He denies chest pain. He denies blood in his stools. He has no abdominal pain. He denies foot drop. Past Medical History: Diagnosis Date Asthma 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HCC) Diverticulitis GERD (gastroesophageal reflux disease) GI bleeding 09/2014 Hand pain Hematuria Histoplasmosis Neuropathy (HCC) Osteopenia Peripheral edema Sleep disorder Past Surgical History: Procedure Laterality Date NASAL POLYP SURGERY Family History Problem Relation Age of Onset Cancer Mother 85 leukemia Asthma Mother Arthritis-osteo Mother Arthritis-rheumatoid Mother Cancer Maternal Grandfather 85 cancer-nose Stroke Paternal Grandfather 67 Other Father Polyarteritis Nodosa Social History Social History Marital status: Spouse name: N/A Number of children: N/A Years of education: N/A Occupational History [employer] Social History Main Topics Smoking status: Former Smoker Packs/day: 0.50 Years: 20.00 Types: Cigarettes Quit date: 06/30/1993 Smokeless tobacco: Never Used Alcohol use No Drug use: No Sexual activity: Not Asked Other Topics Concern None Social History Narrative Review of Systems Constitutional: Positive for fatigue. HENT: Positive for hearing loss. Respiratory: Positive for shortness of breath. Cardiovascular: Positive for leg swelling. Neurological: Positive for numbness. All other systems reviewed and are negative. Objective: albuterol (ACCUNEB) 0.63 mg/3 mL nebulizer solution Inhale 0.63 mg solution as directed every 6 hours as needed. budesonide/formoterol,+, (SYMBICORT) 160/4.5 mcg HFAA inhalation Inhale 2 Puffs by mouth twice daily. bumetanide (BUMEX) 2 mg tablet Take 2 mg by mouth daily. diltiazem CD (CARDIZEM CD) 180 mg capsule Take 180 mg by mouth at bedtime daily. HYDROcodone/acetaminophen (NORCO; VICODIN) 5-325 mg tablet Take 1-2 Tabs by mouth every 8 hours as needed for Pain (Pt reports that he is taking 2 tabs total per day) immune globulin 10% (GAMUNEX) 10 g/100 mL in 0 mL IV infusion 25 grams IV daily for four days, then every 4 weeks for 3 months. ipratropium/albuterol (COMBIVENT) 103/18 mcg/Actuation inhaler Inhale 2 Puffs by mouth As Needed for Wheezing. LORATADINE (CLARITIN PO) Take 1 Tab by mouth daily as needed. losartan (COZAAR) 25 mg tablet Take 1 tablet by mouth daily. MULTIVITAMIN W-MINERALS/LUTEIN (CENTRUM SILVER PO) Take 1 Tab by mouth daily. pantoprazole DR (PROTONIX) 40 mg tablet Take 40 mg by mouth daily. potassium chloride(+) (KLOR-CON 8) 8 mEq tablet Take 16 mEq by mouth daily. predniSONE (DELTASONE) 1 mg tablet Take 1 Tab by mouth daily. To be taken with other 5mg prednisone tablets. Will taper from 15mg by 1mg every 2 weeks to a goal of 10mg daily (Patient taking differently: Take 15 mg by mouth daily. To be taken with other 5mg prednisone tablets. Will taper from 15mg by 1mg every 2 weeks to a goal of 10mg daily) senna (SENOKOT) 8.6 mg tablet Take 2 tablets by mouth daily as needed for Constipation. teriparatide(+) (FORTEO) 20 mcg/dose - 600 mcg/2.4 mL pnij injection pen Inject 20 mcg under the skin daily. Testosterone (ANDRODERM) 4 mg/24 hr pt24 Apply 1 Patch to top of skin as directed. umeclidinium(+) (INCRUSE ELLIPTA) 62.5 mcg/actuation inhalation disk Inhale 1 puff by mouth into the lungs daily. vitamins, B complex tab Take 1 Tab by mouth daily. voriconazole (VFEND) 200 mg tablet TAKE 1 TABLET BY MOUTH TWICE DAILY FOR 240 DAYS voriconazole (VFEND) 200 mg tablet Take 200 mg by mouth twice daily. zolpidem (AMBIEN) 5 mg tablet Take 5 mg by mouth at bedtime as needed. Vitals: 06/26/17 1055 BP: 164/82 Pulse: 77 Resp: 16 Temp: 36.7 C (98.1 F) TempSrc: Oral SpO2: 98% Weight: 102.7 kg (226 lb 6.4 oz) Height: 177.8 cm (70") Body mass index is 32.49 kg/(m^2). Discussed patient's BMI with him. The body mass index is 32.49 kg/(m^2). and falls within the category of Obesity 1 (30 to <35); specialist visit only, referred back to Primary Care Provider for follow up. Physical Exam Constitutional: He is oriented to person, place, and time. He appears well- developed and well-nourished. No distress. cushingoid appearance with miranda faces HENT: Head: Normocephalic and atraumatic. Right Ear: External ear normal. Left Ear: External ear normal. Mouth/Throat: Oropharynx is clear and moist. No oropharyngeal exudate. no bloody crusting Eyes: Conjunctivae are normal. Pupils are equal, round, and reactive to light. Neck: Normal range of motion. Neck supple. No thyromegaly present. Cardiovascular: Normal rate, regular rhythm and intact distal pulses. Exam reveals no gallop and no friction rub. No murmur heard. Pulmonary/Chest: Effort normal and breath sounds normal. He has no wheezes. He has no rales. Abdominal: Soft. Bowel sounds are normal. He exhibits no distension and no mass. There is no tenderness. Musculoskeletal: Normal range of motion. He exhibits edema. He exhibits no tenderness. 3+ edema bilateral lower extremities; no synovitis; PICC line LUE Neurological: He is alert and oriented to person, place, and time. decreased sensation to light touch in bilateral feet to the level of the ankle; normal sensation to light touch in b/l upper extremities; hip flexor strength 4/ 5 bilaterally; upper extremities 5/5 bilaterally Skin: Skin is warm and dry. No rash noted. Dressing clean/dry/intact over right lower extremity Psychiatric: He has a normal mood and affect. Nursing note and vitals reviewed. Urine microscopy today: Many dysmorphic RBC's; 1 cellular cast; several granular casts Assessment and Plan: EGPA, ANCA negative RLE ulcerations, improved Pseudomonas wound culture Elevated inflammatory markers Proteinuria/hematuria with dysmorphic RBC's Asthma Disseminated Histoplasmosis: on tx with Voriconazole, followed by ID Neuropathy, history of foot drop- improved Osteoporosis with compression fracture s/p kyphopasty Hearing loss: followed by ENT and Audiology OA FDC Steroid use Prior use of immunosupression: CTX, MTX, cellcept HTN, asymptomatic Impression: Mr. Akins has had improvement in his lower extremity wounds with therapy at [facility], [place]. His hearing acutely worsened this fall, which has been attributed to tobramycin toxicity. I encouraged him today to follow up with his ENT regarding monitoring hearing loss. His neuropathy is improved on IVIG. His asthma remains difficult to control and has prohibited tapering of prednisone below 10mg daily. Given Dysmorphic RBC's, hematuria, and cellular cast, there is concern that he has renal involvement of vasculitis. His case has been discussed with Nephrology team, Dr. Crawley. Given stable renal function over the last few years and the infectious risk of escalating therapy, we will hold off on renal biopsy or addition of mepolizumab at this time. Plan to monitor renal function closely moving forward. We discussed bone health today, encouraging patient to have adequate intake of calcium and vitamin D daily. Plan: -Labs today: CMP, CBC and diff, Sed, CRP, UA, Vit D, A1C -Will plan to continue monthly labs: CBC, CMP, Sed rate, CRP, UA -Continue IVIG 24gm daily for 4 days (approximately 1gm/kg) every 3 weeks -Continue prednisone 15mg daily, taper by 1mg every 3-4 weeks as able to 10mg daily -Continue protonix -REcommend calcium and vit d supplementation -Continue Voriconzole for histoplasmosis per ID recommendations -Prevnar given in 06/2014, pneumovax given 07/2016 - Continue forteo for osteopenia with compression fractures per his PCP -Patient encouraged to see his PCP for management of his elevated BP -Recommend biofreeze and arthritis gloves for hand pain -RTC in 3 months Patient seen and discussed with my attending, Dr. Branch. Felipe Mancia MD, PGY-5 Rheumatology Fellow Pager [phone] Patient Instructions Have labs done today. Continue to have labs done and sent to me every 4 weeks. Continue to try to decrease your prednisone by 1mg every 3-4 weeks down to 10mg daily as able. Please make sure you get 1200mg of calcium in your diet or via supplements. Take 2000 international units of Vitamin D. I will let you know if you need to take more than that. Please follow up with your ENT to have your hearing rechecked. Come to see me again in September For your hands, you can try biofreeze or arthritis gloves. Return in about 3 months (around 09/24/2017). ATTESTATION I personally performed the douglass portions of the E/M visit, discussed case with resident and concur with resident documentation of history, physical exam, assessment, and treatment plan unless otherwise noted. Staff name: Viraj Branch MD Date: 06/27/2017 in this encounter Plan of Treatment Name Priority Associated Diagnoses Order Schedule COMPREHENSIVE METABOLIC PANEL Routine 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syndrome Every 4 Weeks for 6 (HCC) Occurrences starting 06/26/2017 until 06/26/2018 CBC AND DIFF Routine 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syndrome Every 4 Weeks for 6 (HCC) Occurrences starting 06/26/2017 until 06/26/2018 SED RATE Routine 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syndrome Every 4 Weeks for 6 (HCC) Occurrences starting 06/26/2017 until 06/26/2018 C REACTIVE PROTEIN (CRP) Routine 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syndrome Every 4 Weeks for 6 (HCC) Occurrences starting 06/26/2017 until 06/26/2018 URINALYSIS, MICROSCOPIC Routine 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syndrome Every 4 Weeks for 6 (HCC) Occurrences starting 06/26/2017 until 06/26/2018 URINALYSIS DIPSTICK Routine 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syndrome Every 4 Weeks for 6 (HCC) Occurrences starting 06/26/2017 until 06/26/2018 as of this encounter Results * SED RATE (06/26/2017 12:44 PM) Component Value Ref Range Sed Rate -ESR 45 (H) 0 - 20 MM/HR Specimen Performing Laboratory Blood [facility] [address] [place] [address] * COMPREHENSIVE METABOLIC PANEL (06/26/2017 12:44 PM) Component Value Ref Range Sodium 141 137 [...] Specimen Performing Laboratory [facility] [address] [place] [address] * CBC AND DIFF (06/26/2017 12:44 PM) Component Value Ref Range White Blood [...] Specimen Performing Laboratory [facility] [address] [place] [address] * C REACTIVE PROTEIN (CRP) (06/26/2017 12:44 PM) Component Value Ref Range C-Reactive Protein 2.32 (H) <1.0 MG/DL Specimen Performing Laboratory [facility] [address] [place] [address] * HEMOGLOBIN A1C (06/26/2017 12:44 PM) Component Value Ref Range Hemoglobin A1C 7.7 (H) 4.0 - 6.0 % Comment: The ADA recommends that most patients with type 1 and type 2 diabetes maintain an A1c level <7%. Specimen Performing Laboratory [facility] [address] [place] [address] * 25-OH VITAMIN D (D2 + D3) (06/26/2017 12:44 PM) Component Value Ref Range Vitamin D(25-OH)Total 23.2 (L) 30 - 80 NG/ML Specimen Performing Laboratory [facility] [address] [place] [address] * POC URINE DIPSTICK AUTO READ WITH MICROSCOPY (06/26/2017) Component Value Ref Range Urine Glucose POC 250 Urine Bilirubin POC Negative Urine Ketone POC Negative Urine Specific [place] 1.025 POC Urine Blood POC 50 Urine PH POC 5 Urine Protein POC 30 Urine Urobilinogen POC Normal Urine Nitrite POC Negative Urine Leukocytes POC Negative Color,UA Yellow Turbidity,UA Clear WBCs,UA 0-2 RBCs,UA 5-10 Squamous Epithelial Cells 0-2 MucousUA Negative Casts,UA Urine Comment Specimen Performing Laboratory Urine IN CLINIC in this encounter Visit Diagnoses Diagnosis 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
--- OUTSIDE RECORDS SUMMARY | 2017-07-17 16:56 | XMS REPORT | Encounter Summary ---
Author Author [facility] Organization [facility] Address Unknown Phone Unavailable Care Team Providers Care Life Cycle Assessment Analyst Name Role Phone PCP Unavailable Encounter Details Date Type Department Care Team Description 06/26/2017 [facility] Viraj Branch MD Polyarteritis with lung Encounter [address] [place] [address] [place] [address] (churg-kunal) ([facility]) [place], [place] [id number] Social History Tobacco Use Types Packs/Day Years [...] weeks to a goal of 10mg daily senna (SENOKOT) 8.6 mg Take 2 tablets by mouth tablet daily as needed for Constipation. teriparatide(+) (FORTEO) Inject 20 mcg under the 20 mcg/dose - 600 mcg/2.4 skin daily. mL pnij injection pen Testosterone (ANDRODERM) Apply 1 Patch to top of 4 mg/24 hr pt24 skin as directed. umeclidinium(+) (INCRUSE Inhale 1 puff by mouth ELLIPTA) 62.5 into the lungs daily. mcg/actuation inhalation disk vitamins, B complex tab Take 1 Tab by mouth daily. voriconazole (VFEND) 200 TAKE 1 TABLET BY MOUTH 60 tablet 7 2016 mg tabletIndications: TWICE DAILY FOR 240 DAYS Histoplasmosis voriconazole (VFEND) 200 Take 200 mg by mouth mg tablet twice daily. zolpidem (AMBIEN) 5 mg Take 5 mg by mouth at tablet bedtime as needed. as of this encounter Plan of Treatment Not on fileas of this encounter Results * SED RATE (06/26/2017 12:44 PM) Component Value Ref Range Sed Rate -ESR 45 (H) 0 - 20 MM/HR Specimen Performing Laboratory Blood MAIN [facility] [address] [place] [address] * COMPREHENSIVE METABOLIC PANEL (06/26/2017 12:44 PM) [...] Specimen Performing Laboratory Blood [facility]IN [facility] [address] [place] [address] * CBC AND DIFF (06/26/2017 12:44 PM) [...] Specimen Performing Laboratory [facility] [address] [place] [address] * C REACTIVE PROTEIN (CRP) (06/26/2017 12:44 PM) Component Value Ref Range C-Reactive Protein 2.32 (H) <1.0 MG/DL Specimen Performing Laboratory [facility] [address] [place] [address] * HEMOGLOBIN A1C (06/26/2017 12:44 PM) Component Value Ref Range Hemoglobin A1C 7.7 (H) 4.0 - 6.0 % Comment: The ADA recommends that most patients with type 1 and type 2 diabetes maintain an A1c level <7%. Specimen Performing Laboratory [facility] [address] [place] [address] * 25-OH VITAMIN D (D2 + D3) (06/26/2017 12:44 PM) Component Value Ref Range Vitamin D(25-OH)Total 23.2 (L) 30 - 80 NG/ML Specimen Performing Laboratory [facility] [address] [place] [address] in this encounter Visit Diagnoses Diagnosis Osteopenia, unspecified location 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HCC) Brielle's granulomatosis in this encounter Admitting Diagnoses Diagnosis Polyarteritis with lung involvement (churg-kunal) (HCC) Polyarteritis with lung involvement [Churg-Kunal] in this encounter
--- OUTSIDE RECORDS SUMMARY | 2017-07-17 16:56 | XMS REPORT | Encounter Summary ---
Author Author [facility] Organization [facility] Address Unknown Phone Unavailable Care Team Providers Care Religious Educator Name Role Phone PCP Unavailable Reason for Visit * Reason Comments Chronic Kidney Disease * Consult, Test & Treat (Urgent) Status Reason Specialty Diagnoses / Referred By Referred To Procedures Contact Contact No Auth Needed Specialty Nephrology Diagnoses Viraj Branch [facility] MD [place] [address]LO[address]OD C Required unspecified type [address] OFFICE [address]LDG [address] [place] [phone] Phone: Encounter Details Date Type Department Care Team Description 06/05/2017 Office Visit [facility] Viraj Branch MD Chronic kidney disease, Physicians - Internal [address] unspecified CKD stage Medicine [address] (Primary [address] [place] [address] Dx);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[address] 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 syndrome OFFICE BLDG ([facility]);Disseminated [place] M histoplasmosis;Pancytopen [phone] Jessica Flannery MD ia ([facility]);Stage 3 chronic [phone] kidney disease [address] [place] [address] [phone] Social History Tobacco Use Types Packs/Day Years Used Date Former Smoker Cigarettes 0.5 20 Quit: 06/30/1993 Smokeless Tobacco: Never Used Alcohol Use Drinks/Week oz/Week Comments No 0 Standard 0.0 drinks or equivalent Sex Assigned at Date Recorded Not on file as of this encounter Last Filed Vital Signs Vital Sign Reading Time Taken Blood Pressure 158/83 06/05/2017 2:11 PM LAWYER Pulse 85 06/05/2017 2:11 PM LAWYER Temperature 36.6 C (97.9 F) 06/05/2017 2:11 PM LAWYER Respiratory Rate - - Oxygen Saturation - - Inhaled Oxygen - - Concentration Weight 101.8 kg (224 lb 6.4 oz) 06/05/2017 2:08 PM LAWYER Height 177.8 cm (5' 10") 06/05/2017 2:08 PM LAWYER Body Mass Index 32.2 06/05/2017 2:08 PM LAWYER in this encounter Functional Status Functional Status [...] this encounter Instructions * Patient Instructions - Jessica Crawley MD - 06/05/2017 2:20 PM LAWYER Please do not hesitate to call with any questions. My nurse Nay can be reached [phone]. Please start losartan 25mg once a day, please get labs 1 week after starting If home blood pressure consistently running >150/100 please call Return to clinic in 3 months in this encounter Progress Notes * Jessica Crawley MD - 06/05/2017 2:20 PM LAWYER Formatting of this note may be different from the original. Subjective: History of Present Illness Lanre Diaz is a 62 y.o. male who presents to Nephrology clinic as a new referral regarding hematuria. 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 He was initially treated with Cytoxan and high dose steroids, then transitioned to PO Cytoxan for about 4 years. He later transitioned to therapy with Cellcept, methotrexate and prednisone while following regularly with the Rheumatology group here at [facility]. In March 2014, he was hospitalized and diagnosed with disseminated histoplasmosis based on bone marrow biopsy. He was treated with amphotericin and later transitioned to voriconazole. He continues to follow with Dr. Putnam in Infectious Disease clinic while following serial histo antigens which have remained negative. At that time his Cellcept and MTX were discontinued in favor of chronic prednisone therapy. In 2014, he had worsening sinusitis symptoms, and IVIG was added to his daily prednisone therapy. He continues to take IVIG every 3 weeks. In the summer of 2016 he developed rapidly progressive ulcers of his RLE, thought to be related to his underlying vasculitis. 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 He was started on cefepime and later transitioned to tobramycin based on sensitivity results. He has been off tobramycin for about one month. However, he has developed hearing loss while on tobramycin. He continues on daily prednisone, currently at a dose of 18mg daily. He has flares about 3-4 times yearly of his EGPA, normally manifested as worsening pulmonary symptoms, and he is advanced to prednisone 40mg daily during these flares with subsequent tapering. He has elevated blood sugars and easy bruising since being on chronic steroids. He was found to have hematuria at some point in the past and actually underwent cystoscopy in 2009 that was reportedly normal. He denies any episodes gross hematuria, but he does have occasional frothy urine, mostly around the time of IVIG administration. He has some dependent edema that improves with leg elevation. He has no SOB, SEGURA, orthopnea, nausea/vomitting, new rashes apart from his known ulcers. Medical History GERD Osteoporosis Steroid-induced hyperglycemia EGPA Asthma Disseminated Histoplasmosis Surgical History Nasal polyp surgery Family History Father - polyarteritis nodosa Mother - asthma Social History Former smoker, quit in 1993 No alcohol Lives with Review of Systems Constitutional: Negative for chills, fever and unexpected weight change. HENT: Negative for sinus pressure and sore throat. Eyes: Negative for visual disturbance. Respiratory: Negative for cough, chest tightness and shortness of breath. Cardiovascular: Positive for leg swelling. Negative for chest pain and palpitations. Gastrointestinal: Negative for abdominal pain, nausea and vomiting. Genitourinary: Negative for decreased urine volume, difficulty urinating and hematuria. Musculoskeletal: Negative for arthralgias and myalgias. Skin: Positive for wound. Neurological: Negative for dizziness and headaches. Objective: acetaminophen (TYLENOL) 500 mg tablet Take 500 mg by mouth every 6 hours as needed for Pain. albuterol (ACCUNEB) 0.63 mg/3 mL nebulizer solution Inhale 0.63 mg solution as directed every 6 hours as needed. budesonide/formoterol,+, (SYMBICORT) 160/4.5 mcg HFAA inhalation Inhale 2 Puffs by mouth twice daily. bumetanide (BUMEX) 2 mg tablet Take 2 mg by mouth daily. CALCIUM CARBONATE/VITAMIN D3 (VITAMIN D-3 PO) Take 2,700 Int'l Units by mouth. diltiazem CD (CARDIZEM CD) 180 mg capsule [...] weeks to a goal of 10mg daily) teriparatide(+) (FORTEO) 20 mcg/dose - 600 mcg/2.4 mL pnij injection pen Inject 20 mcg under the skin daily. Testosterone (ANDRODERM) 4 mg/24 hr pt24 Apply 1 Patch to top of skin as directed. vitamins, B complex tab Take 1 Tab by mouth daily. voriconazole (VFEND) 200 mg tablet TAKE 1 TABLET BY MOUTH TWICE DAILY FOR 240 DAYS voriconazole (VFEND) 200 mg tablet Take 200 mg by mouth twice daily. zolpidem (AMBIEN) 5 mg tablet Take 5 mg by mouth at bedtime as needed. Vitals: 06/05/17 1408 06/05/17 1411 BP: 160/83 158/83 Pulse: 82 85 Temp: 36.6 C (97.9 F) TempSrc: Oral Weight: 101.8 kg (224 lb 6.4 oz) Height: 177.8 cm (70") Body mass index is 32.2 kg/(m^2). Physical Exam Constitutional: No distress. plethoric complextion, miranda-facies HENT: Head: Normocephalic and atraumatic. Right Ear: External ear normal. Left Ear: External ear normal. Nose: Nose normal. Mouth/Throat: Oropharynx is clear and moist. No oropharyngeal exudate. Eyes: Conjunctivae are normal. No scleral icterus. Neck: No JVD present. Cardiovascular: Normal rate, regular rhythm, normal heart sounds and intact distal pulses. No murmur heard. Pulmonary/Chest: Effort normal and breath sounds normal. No respiratory distress. Abdominal: Soft. Bowel sounds are normal. He exhibits no distension. There is no tenderness. Musculoskeletal: He exhibits no edema. RLE with clean wound dressing in place Lymphadenopathy: He has no cervical adenopathy. Skin: Skin is warm and dry. very thin, dry skin Assessment and Plan: 1. Hematuria: Chart review shows this has been present for several years intermittently. Prior cystoscopy was apparently normal. He has been exposed to cytoxan for several years but no ongoing therapy now. Review of urine sediment shows several dysmorphic RBCs, no casts. This is certainly concerning for vasculitis involving his kidney. Overall, his renal function has been stable/ normal. His case will need to be discussed and coordinated with ID and Rheumatology. With respect to possible renal vasculitis, a renal biopsy may be needed to direct management. However, given his history, advancing/increasing his immunesuppresion would be of concern. If the other specialties recommend against increasing immunesupression, there is likely no need to pursue renal biopsy. Final decisions regarding management will be ongoing depending on upcoming discussions. 2. Non-nephrotic proteinuria: UA with +protein and Pr/Cr 0.5. Consistent with underlying glomerular disease. We will initiate losartan for renal protection and improved blood pressure 3. EGPA: Following with Rheum, currently on prednisone 18mg daily and IVIG Q3 weeks. Prior therapy as mentioned above. Dysmorphic red cells in urine sediment raise concern for vasculitic involvement in the glomeruli. Planning to coordinate potential biopsy and adjustment to medications as mentioned. 4. Disseminated histoplasmosis: Developed while on Cellcept and MTX in 2013 for EGPA. Following with Dr. Putnam in ID, on voriconazole. Serial histo ags have been negative 5. Lower extremity ulcers: Initial etiology thought to be related to vasculitis. Subsequent wound cultures have grown Pseudomonas. Therapy with cefepime, then transitioned to tobramycin. Now off antibiotics and following with wound care and hyperbaric oxygen. 6. Steroid induced hyperglycemia: Elevated A1C. Due to prolonged prednisone use. Adding losartan as mentioned above. Further glycemic control to be determined/initiated by PCP. 7. Osteoporosis: On forteo, prescrbed by PCP 8. Hypertension: Currently on bumex and diltiazem. Adding losartan today. RTC in 3 months Patient was seen and discussed with Dr. Denisa Mccullough PGY-3 Internal Medicine pager [phone] I personally performed the douglass portions of the E/M visit, discussed case with resident and concur with resident documentation of history, physical exam, assessment, and treatment plan unless otherwise noted. 62 yo male with EPGA has had hematuria since 2015, he has mild CKD Cr around 1.2 since 2013. Microscopy shows dysmorphic RBC concerning for renal involvement of his vasculitis. I am concerned about increasing his immunosuppression given his stable renal function and multiple infections. Given his renal function function has been stable for 3 years and limited treatment options I am hesitant to proceed with biopsy. Case discussed with rheumatology. Added losartan for treatment of his HTN Jessica Crawley MD Pager [phone] Donnie Maintenance / Prevention Immunization History Administered Date(s) Administered Pneumococcal Vaccine (23-Guerita Adult) 07/28/2014, 08/02/2016 Pneumococcal Vaccine(13-Guerita Peds/immunocompromised adult) 06/01/2013 Orders Placed This Encounter POC URINE DIPSTICK AUTO READ losartan (COZAAR) 25 mg tablet Patient Instructions Please do not hesitate to call with any questions. My nurse Nay can be reached [phone]. Please start losartan 25mg once a day, please get labs 1 week after starting If home blood pressure consistently running >150/100 please call Return to clinic in 3 months in this encounter Plan of Treatment Not on fileas of this encounter Results * POC URINE DIPSTICK AUTO READ (06/05/2017) Component Value Ref Range Urine Glucose POC >1000 Urine Bilirubin POC 1 Urine Ketone POC 15 Urine Specific Excel 1.015 POC Urine Blood POC 250 Urine PH POC 5 Urine Protein POC 30 Urine Urobilinogen POC norm Urine Nitrite POC neg Urine Leukocytes POC neg Color,UA Turbidity,UA Specimen Performing Laboratory Urine IN CLINIC in this encounter Visit Diagnoses Diagnosis Chronic kidney disease, unspecified CKD stage - Primary 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HCC) Brielle's granulomatosis Disseminated histoplasmosis Histoplasmosis, unspecified without mention of manifestation Pancytopenia (HCC) Other pancytopenia Stage 3 chronic kidney disease in this encounter
--- OUTSIDE RECORDS SUMMARY | 2017-07-17 16:56 | XMS REPORT | Encounter Summary ---
Author Author [facility] Organization [facility] Address Unknown Phone Unavailable Care Team Providers Care Industrial Engineering Intern Name Role Phone PCP Unavailable Reason for Visit * Reason Comments Results Encounter Details Date Type Department Care Team Description 07/09/2017 Telephone [facility] Felipe Mancia MD Results Physicians - Internal [address] [facility] Medicine [address] [place] [address] [address] [facility] MED [phone] [place] [address] Social History Tobacco Use Types [...] encounter Miscellaneous Notes * Telephone Encounter - Zaida Sung RN - 07/09/2017 10:33 AM SALES REPRESENTATIVE [employer]MS Faxed lab orders to PCP. * Telephone Encounter - Zaida Sung RN - 07/09/2017 10:20 AM SALES REPRESENTATIVE [employer] ----- Message from Felipe Mancia MD sent at 07/02/2017 9:50 PM SALES REPRESENTATIVE [employer]MS ----- Labs stable with elevated Hgb A1C and low Vitamin D. Patient asked to start taking OTC Vit D. Patient notified via my chart. Lukasz, will you forward results of A1C to Dr. Cox, his PCP? THank you! in this encounter Plan of Treatment Not on fileas of this encounter Visit Diagnoses Not on filein this encounter
--- OUTSIDE RECORDS SUMMARY | 2017-07-17 16:56 | XMS REPORT | Encounter Summary ---
Author Author [facility] Organization [facility] Address Unknown Phone Unavailable Care Team Providers Care Champion Of Sustainable Design Name Role Phone PCP Unavailable Reason for Visit * Reason Comments Results Encounter Details Date Type Department Care Team Description 06/16/2017 Telephone [facility] Felipe Mancia MD Results Physicians - Internal [address] [facility] Medicine [address] [place] [address] [address] [facility] MED [phone] [place] [address] Social History Tobacco Use Types [...] encounter Miscellaneous Notes * Telephone Encounter - Felipe Mancia MD - 06/16/2017 12:44 PM CARDIAC REHAB NURSE I called Mr. Diaz today to discuss lab results. I informed him that his inflammatory markers remain elevated, but Hgb and renal function stable. His glucose is again high, which he is working with his PCP on. I updated him on the ongoing conversation between myself, Dr. Crawley, Dr Feldman and Dr. Putnam about whether renal biopsy or escalation of therapy is indicated at this time. I will plan to review his urine microscopy on 06/[address] Feldman following patients appointment with me. All questions answered and call concluded. in this encounter Plan of Treatment Not on fileas of this encounter Visit Diagnoses Not on filein this encounter
--- OUTSIDE RECORDS SUMMARY | 2017-07-17 16:57 | XMS REPORT | Encounter Summary ---
Author Author [facility] Organization [facility] Address Unknown Phone Unavailable Care Team Providers Care Rocket Motor Mechanic Name Role Phone PCP Unavailable Encounter Details Date Type Department Care Team Description 05/29/2017 Outpt. [facility] Tyshawn Putnam MD Antibiotic Physicians - Internal [address] [facility] Therapy Medicine [address] [place], [place] [phone] [address] [facility] MED [phone] [place] [address] Social History Tobacco Use Types [...] impairment: No 10/03/2014 as of this encounter Progress Notes * Mariella Hinojosa RN - 05/29/2017 3:50 PM FUNCTIONAL TESTER Called [facility] re: lab results from April for CMP, vori level, and histo Ag. Informed again that these labs were missed as they are disregarding standing orders and drawing lab orders that were placed by other physician. ID RN had addressed this w/ [facility] on 04/24 and had refaxed standing order on this date. Contacted pt and asked that he come by the OP lab on 06/05 when he is here for his nephrology appt. Pt stated that he would come to lab at this time, orders placed in O2. in this encounter Plan of Treatment Not on fileas of this encounter Results * VORICONAZOLE LC-MS/MS (06/05/2017 3:40 PM) Component Value Ref Range Voriconazole, Serum 2.9 Comment: Reference range: 1.0 to 5.5 Unit: mcg/mL The range listed under reference range refers to the target therapeutic range. *This test was developed and its performance characteristics determined by [facility]. It has not been cleared or approved by the U.S. Food and Drug Administration. Testing Performed At: [facility] [address] [place] [address] CLIA ID: [id number] Specimen Performing Laboratory Blood REFERENCE LAB * [...] developed and its performance characteristics determined by [facility]. It has not been cleared or approved by the FDA; however, FDA clearance or approval is not currently required for clinical use. The results are not intended to be used as the sole means for clinical diagnosis or patient management decisions. Test Performed by: [facility] [address] [facility] [place] [address] Specimen Performing Laboratory Blood REFERENCE LAB in this encounter Visit Diagnoses Diagnosis Histoplasmosis - Primary Histoplasmosis, unspecified without mention of manifestation Encounter for long-term (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
--- OUTSIDE RECORDS SUMMARY | 2017-07-17 16:57 | XMS REPORT | Encounter Summary ---
Author Author [facility] Organization [facility] Address Unknown Phone Unavailable Care Team Providers Care Die Cast Engineer Name Role Phone PCP Unavailable Reason for Visit * Reason Comments FYI Encounter Details Date Type Department Care Team Description 05/27/2017 Telephone [facility] Felipe Mancia MD FYI Physicians - Internal [address] [facility] Medicine [address] [place] [address] [address] [facility] MED [phone] [place] [address] Social History Tobacco Use Types [...] Telephone Encounter - Lukasz Rosario RN - 05/27/2017 1:51 PM COMMERCIAL LENDING RELATIONSHIP MANAGER On the referral it states, Routing to Dr. Mancia as an FYI * Telephone Encounter - Lukasz Rosario RN - 05/27/2017 1:51 PM COMMERCIAL LENDING RELATIONSHIP MANAGER ----- Message from Felipe Mancia MD sent at 05/26/2017 11:23 AM COMMERCIAL LENDING RELATIONSHIP MANAGER ----- Kristian Lal, I was wondering if you had any updates regarding getting Mr. Diaz in with Nephrology- the referral was placed 04/16/17 but I don't see that he has been scheduled yet. This is urgent as he has blood in his urine which could represent damage from vasculitis. Keep me posted on what you are able to find out. Thanks so much, Felipe in this encounter Plan of Treatment Not on fileas of this encounter Visit Diagnoses Not on filein this encounter
--- OUTSIDE RECORDS SUMMARY | 2017-07-17 16:57 | XMS REPORT | Encounter Summary ---
Author Author [facility] Organization [facility] Address Unknown Phone Unavailable Care Team Providers Care Medicare Nurse Name Role Phone PCP Unavailable Reason for Visit * Reason Comments Results Encounter Details Date Type Department Care Team Description 04/16/2017 Telephone [facility] Tyshawn Putnam MD Results Physicians - Internal [address] [facility] Medicine [address] [place] [address] [address] [facility] MED [phone] [place] [address] Social History Tobacco Use Types [...] encounter Miscellaneous Notes * Telephone Encounter - Velvet Mercado LPN - 04/16/2017 11:29 AM CDT Formatting of this note may be different from the original. Received following results from Dr. Putnam: Would you please let Him know lab results The creatinine renal function are not bad. Still has 2+ protein in urine. D Results for LANRE TOLBERT ( ) as of 04/16/2017 11:30 Ref. Range 04/14/2017 13:38 04/14/2017 13:39 Color,UA Unknown YELLOW Turbidity,UA Latest Ref Range: CLEAR-CLEAR 1+ (A) Specific [place]-Urine Latest Ref Range: 1.003 - 1.035 1.029 pH,UA Latest Ref Range: 5.0 - 8.0 6.0 Glucose,UA Latest Ref Range: NEG-NEG 1+ (A) Ketones,UA Latest Ref Range: NEG-NEG TRACE (A) Bilirubin,UA Latest Ref Range: NEG-NEG NEG Protein,UA Latest Ref Range: NEG-NEG 2+ (A) Urobilinogen,UA Latest Ref Range: NORM-NORMAL NORMAL Blood,UA Latest Ref Range: NEG-NEG 1+ (A) Nitrite,UA Latest Ref Range: NEG-NEG NEG Leukocytes,UA Latest Ref Range: NEG-NEG NEG Urine Ascorbic Acid, UA Latest Ref Range: NEG-NEG NEG WBCs,UA Latest Ref Range: 0 - 2 /HPF 2-10 RBCs,UA Latest Ref Range: 0 - 3 /HPF 2-10 MucousUA Unknown TRACE Hyaline Cast Unknown 0-2 Squamous Epithelial Cells Latest Ref Range: 0 - 5 0-2 Creatinine, Random Latest Units: MG/DL 185 Protein/CR ratio Unknown 0.5 Protein, Random Latest Units: MG/DL 98 Called and was unable to leave message, answering machine is not set up in this encounter Plan of Treatment Not on fileas of this encounter Visit Diagnoses Not on filein this encounter
--- OUTSIDE RECORDS SUMMARY | 2017-07-17 16:57 | XMS REPORT | Encounter Summary ---
Author Author [facility] Organization [facility] Address Unknown Phone Unavailable Care Team Providers Care Communications Instructor Name Role Phone PCP Unavailable Encounter Details Date Type Department Care Team Description 05/12/2017 Documentation [facility] Felipe Mancia MD Physicians - Internal [address] [facility] Medicine [address] [place] [address] [address] [facility] MED [phone] [place] [address] Social History Tobacco Use Types [...] as of this encounter Progress Notes * Felipe Mancia MD - 05/12/2017 12:42 PM SKI GUIDE Records received from Fei Palencia MD, pertinent details below: OV note 03/16/15: Patient seen for subacute bilateral hearing loss. Audiogram with bilateral high frequency sensorineural hearing loss with drop at 2000kHz bilaterally. Patient referred for hearing aides. OV note 08/13/16: patient being followed for sensorineural hearing loss. Audiogram on same day showed hearing loss beginning at 2K in both ears. The discrimination in the right ear was 84% at 65 decibels. The discrimination in the left ear was 96% at 60 decibels. Hearing aides were readjusted with improvement in hearing. OV note 03/27/17: patient seen for worsening hearing loss. Audiogram on same day showed threshold shift by 10 to 15 decibels. This was performed after being on tobramycin for 1 month. Tobramycin was discontinued. Will place records in box for scanning. in this encounter Plan of Treatment Not on fileas of this encounter Visit Diagnoses Not on filein this encounter
--- OUTSIDE RECORDS SUMMARY | 2017-07-17 16:57 | XMS REPORT | Encounter Summary ---
Author Author [facility] Organization [facility] Address Unknown Phone Unavailable Care Team Providers Care Reinforcing Steel Worker Wire Mesh Name Role Phone PCP Unavailable Reason for Visit * Reason Comments Medication Refill Encounter Details Date Type Department Care Team Description 05/30/2017 Refill [facility] Tyshawn Putnam MD Histoplasmosis Physicians - Internal [address] [facility] Medicine [address] [facility] [address] OFFICE BLDG [phone] [address] [place] [address] Social History Tobacco Use Types Packs/Day Years [...] Telephone Encounter - Velvet Mercado LPN - 05/30/2017 1:37 PM UNLEAVENED DOUGH MIXER Per last ov 03/2017: PLAN Continue voriconazole 200 mg bid and monitor levels The vori levels are usually therapeutic. The histo levels show that the fungus is controlled. Repeat levels today but pending. Patient doesn't have a follow up appointment scheduled in this encounter Plan of Treatment Not on fileas of this encounter Visit Diagnoses Diagnosis Histoplasmosis Histoplasmosis, unspecified without mention of manifestation in this encounter
--- OUTSIDE RECORDS SUMMARY | 2017-07-17 16:57 | XMS REPORT | Encounter Summary ---
Author Author [facility] Organization [facility] Address Unknown Phone Unavailable Care Team Providers Care Assistant Construction Superintendent Name Role Phone PCP Unavailable Reason for Visit * Reason Comments Medication Question Heparin Encounter Details Date Type Department Care Team Description 05/06/2017 Telephone [facility] Felipe Mancia MD Medication Question Physicians - Internal [address] (Heparin) Medicine [address] [place] [address] [address] [facility] [phone] [place] [address] Social History Tobacco Use Types [...] Telephone Encounter - Lukasz Rosario RN - 05/09/2017 3:57 PM HOSPITAL SUPERINTENDENT Called and let them know it was OK to use heparin per their protocol * Telephone Encounter - Felipe Mancia MD - 05/08/2017 2:06 PM HOSPITAL SUPERINTENDENT It is OK to use heparin per protocol for PICC catalyst operator gasoline. * Telephone Encounter - Lukasz Rosario, RN - 05/06/2017 3:32 PM HOSPITAL SUPERINTENDENT KVNG navarro requesting a verbal order from doctor to use heparin for picc catalyst operator gasoline Called and they stated when the pt was on abx a different provider had authorized the heparin for maintenance but now that the abx is stopped pt is still using picc line for GAMUNEX infusions. Bridgette stated that they tried using non-heparin options and they didn't work. Bridgette stated that all they need from us is authorization to use heparin "per their protocol" for picc catalyst operator gasoline. Informed Yola that this nurse would ask Dr. Mancia and call back Routing to Dr. Mancia for review and recommendations in this encounter Plan of Treatment Not on fileas of this encounter Visit Diagnoses Not on filein this encounter
--- OUTSIDE RECORDS SUMMARY | 2017-07-17 16:57 | XMS REPORT | Encounter Summary ---
Author Author [facility] Organization [facility] Address Unknown Phone Unavailable Care Team Providers Care Mounter Clarinets Name Role Phone PCP Unavailable Encounter Details Date Type Department Care Team Description 04/17/2017 Outpt. [facility] Tyshawn Putnam MD Antibiotic Physicians - Internal [address] [facility] Therapy Medicine [address] [place], [place] [address] [address] [facility] MED [phone] [place] [address] Social History Tobacco Use Types [...] impairment: No 10/03/2014 as of this encounter Plan of Treatment Not on fileas of this encounter Results * C REACTIVE PROTEIN (CRP) (04/10/2017) Component Value Ref Range C-Reactive Protein 9.7 mg/dL Specimen Performing Laboratory Blood OTHER OUTSIDE LAB * BUN (04/10/2017) Component Value Ref Range Blood Urea Nitrogen 30 Specimen Performing Laboratory Blood OTHER OUTSIDE LAB * ALT (SGPT) (04/10/2017) Component Value Ref Range ALT (SGPT) 30 Specimen Performing Laboratory Blood OTHER OUTSIDE LAB * AST (SGOT) (04/10/2017) Component Value Ref Range AST (SGOT) 22 Specimen Performing Laboratory Blood OTHER OUTSIDE LAB * POTASSIUM (04/10/2017) Component Value Ref Range Potassium 4.5 Specimen Performing Laboratory Blood OTHER OUTSIDE LAB * ALK PHOS TOTAL (04/10/2017) Component Value Ref Range Alk Phosphatase 132 Specimen Performing Laboratory Blood OTHER OUTSIDE LAB * CREATININE (04/10/2017) Component Value Ref Range Creatinine 1.1 Specimen Performing Laboratory Blood OTHER OUTSIDE LAB * PLATELET COUNT (04/10/2017) Component Value Ref Range Platelet Count 189 Specimen Performing Laboratory Blood OTHER OUTSIDE LAB * CBC (04/10/2017) Component Value Ref Range White Blood Cells 12.7 Specimen Performing Laboratory Blood OTHER OUTSIDE LAB * HEMOGLOBIN (04/10/2017) Component Value Ref Range Hemoglobin 10.5 Specimen Performing Laboratory Blood OTHER OUTSIDE LAB * CULTURE-WOUND/TISSUE/FLUID(AEROBIC ONLY)W/SENSITIVITY (04/02/2017) Specimen Performing Laboratory IN CLINIC in this encounter Visit Diagnoses Not on filein this encounter
--- OUTSIDE RECORDS SUMMARY | 2017-07-17 16:57 | XMS REPORT | Encounter Summary ---
Author Author [facility] Organization [facility] Address Unknown Phone Unavailable Care Team Providers Care Shut Off Worker Name Role Phone PCP Unavailable Reason for Visit * Reason Comments Labs Only standing Encounter Details Date Type Department Care Team Description 04/30/2017 Telephone [facility] Felipe Mancia MD Labs Only (standing) Physicians - Internal [address] [facility] Medicine [address] [place] [address] [address] [facility] MED [phone] [place] [address] Social History Tobacco Use Types [...] encounter Miscellaneous Notes * Telephone Encounter - Cat Chavez - 05/01/2017 2:56 PM CDT Faxed standing lab orders to [facility] @ [phone]. Confirmation received @ 2:37pm * Telephone Encounter - Lukasz Rosario RN - 05/01/2017 8:49 AM CDT Routing to Ghada * Telephone Encounter - Lukasz Rosario RN - 04/30/2017 4:22 PM CDT Replied to pt on mychart Routing to myself to send standing lab orders on 05-01-17 * Telephone Encounter - Lukasz Rosario RN - 04/30/2017 4:22 PM CDT ----- Message from Tricia Mccauley RN sent at 04/30/2017 3:02 PM CDT ----- Regarding: FW: Non-Urgent Medical Question Contact: ----- Message ----- From: Lanre Diaz Sent: 04/30/2017 2:54 PM To: [facility] Subject: Non-Urgent Medical Question Hi Dr. Mancia There are no standing lab orders at [facility] for me on a monthly basis. If you would like something checked, the [facility] registration fax# is . Please advise. Thank You Lanre in this encounter Plan of Treatment Not on fileas of this encounter Visit Diagnoses Not on filein this encounter
--- OUTSIDE RECORDS SUMMARY | 2017-07-17 16:57 | XMS REPORT | Encounter Summary ---
Author Author [facility] Organization [facility] Address Unknown Phone Unavailable Care Team Providers Care Feedmobile Driver Name Role Phone PCP Unavailable Encounter Details Date Type Department Care Team Description 05/14/2017 Orders Only [facility] Felipe Mancia MD Vasculitis ([facility]) Physicians - Internal [address] [facility] Medicine [address] [place] [address] [address] [facility] MED [phone] [place] [address] Social History Tobacco Use Types [...] of this encounter Results * SED RATE (05/12/2017) Component Value Ref Range Sed Rate -ESR Specimen Performing Laboratory Blood OTHER OUTSIDE LAB * CBC AND DIFF (05/12/2017) Component Value Ref Range White Blood Cells RBC Hemoglobin Hematocrit MCV MCH MCHC Platelet Count MPV RDW Neutrophils Absolute Neutrophil Count Lymphocytes Absolute Lymph Count Monocytes Absolute Monocyte Count Eosinophil Absolute Eosinophil Count Basophils Absolute Basophil Count Atypical Lym Metamyelocyte Myelocyte Promyelocyte Blast RBC Morph WBC Morphology Specimen Performing Laboratory Blood OTHER OUTSIDE LAB * COMPREHENSIVE METABOLIC PANEL (05/12/2017) Component Value Ref Range Sodium Potassium Chloride CO2 Blood Urea Nitrogen Creatinine Glucose Calcium Total Protein Total Bilirubin Albumin Alk Phosphatase AST (SGOT) ALT (SGPT) eGFR Non eGFR Anion Gap Specimen Performing Laboratory Blood OTHER OUTSIDE LAB * URINALYSIS DIPSTICK (05/12/2017) Specimen Performing Laboratory Urine OTHER OUTSIDE LAB * C REACTIVE PROTEIN (CRP) (04/11/2017) Component Value Ref Range C-Reactive Protein Specimen Performing Laboratory Blood OTHER OUTSIDE LAB in this encounter Visit Diagnoses Diagnosis Vasculitis (HCC) Arteritis, unspecified in this encounter
--- OUTSIDE RECORDS SUMMARY | 2017-07-17 16:57 | XMS REPORT | Encounter Summary ---
Author Author [facility] Organization [facility] Address Unknown Phone Unavailable Care Team Providers Care Rug Sample Beveler Name Role Phone PCP Unavailable Reason for Referral * Consult, Test & Treat (Urgent) Status Reason Specialty Diagnoses / Referred By Referred To Procedures Contact Contact No Auth Needed Specialty Nephrology Diagnoses [facility] MD [place] [address]LO[address]OD [address] Required unspecified type [address] [place] [address] [facility] [address] MED OFFICE [facility] MS [address] [place] [phone] Phone: Reason for Visit * Reason Comments Results Encounter Details Date Type Department Care Team Description 04/16/2017 Telephone [facility] Felipe Mancia MD Results Physicians - Internal [address] [facility] Medicine [address] [place] [address] [address] [facility] MED [phone] [place] [address] Social History Tobacco Use Types [...] encounter Miscellaneous Notes * Telephone Encounter - Viji Noriega RN - 04/17/2017 2:22 PM CDT Faxing B12 and A1C to Dr. Cox at [phone]. * Telephone Encounter - Felipe Mancia MD - 04/16/2017 2:42 PM CDT I called Mr. Diaz to discuss lab results. I told him that due to persistent hematuria, I would like for him to be seen by our Nephrologists. Dr. Feldman and I did not see any casts in his urine yesterday, but as the urine sample was not fresh, our evaluation is not reliable. He was open to this plan. I also told him about borderline B12 level and elevated A1C. He says that he does monitor blood glucose at home. He also believes that he has been on B12 supplements in the past. I will forward both results to his PCP to address. All questions answered and call concluded. in this encounter Plan of Treatment Name Priority Associated Diagnoses Order Schedule AMB REFERRAL TO NEPHROLOGY Routine Hematuria, unspecified Ordered: 04/16 type as of this encounter Visit Diagnoses Diagnosis Hematuria, unspecified type - Primary in this encounter
--- OUTSIDE RECORDS SUMMARY | 2017-07-17 16:57 | XMS REPORT | Encounter Summary ---
Author Author [facility] Organization [facility] Address Unknown Phone Unavailable Care Team Providers Care Apprentice Painter Neckties Name Role Phone PCP Unavailable Reason for Visit * Reason Comments General Question Encounter Details Date Type Department Care Team Description 06/04/2017 Telephone [facility] Felipe Mancia MD General Question Physicians - Internal [address] [facility] Medicine MS [address] [place] [address] [address] [facility] MED [phone] [place] [address] Social History Tobacco Use Types [...] Telephone Encounter - Lukasz Rosario RN - 06/04/2017 9:55 AM WEARING APPAREL SHAKER Sending signed fax to [facility] Infusion Services at fax number [phone]. Placing signed document in [employer]Now. Received fax confirmation in this encounter Plan of Treatment Not on fileas of this encounter Visit Diagnoses Not on filein this encounter
--- OUTSIDE RECORDS SUMMARY | 2017-07-17 16:59 | XMS REPORT ---
Author Author SAURABH BAXTER Organization [facility] Address [address] [place] [address] Care Team Providers Care Airport Sales Agent Name Role Phone NITIN BAXTERLYN Unavailable PROBLEMS Type Condition ICD9-CM Code UOB36-NA Code Onset Dates Condition Status SNOMED Code Problem Dental examination Z01.20 Active 457778260 Problem DTAP TEST V06.1 Active ALLERGIES No Known Allergies SOCIAL HISTORY Never Assessed PLAN OF CARE VITAL SIGNS Blood pressure systolic 129 mmHg 2016-08-01 Blood pressure diastolic 79 mmHg 2016-08-01 MEDICATIONS Medication Instructions Dosage Frequency Start Date End Date Duration Status Jiprwnllnns-UETA-Jhdchwx Prod 10-325 MG Active Claritin 10 MG Orally Once a day 1 tablet 24h Active Ambien 5 MG Orally Once a day 1 tablet at bedtime 24h Active Lisinopril 5 MG Active Xolair 150 MG Active Combivent Active Baclofen 10 MG/20ML Active Vitamin B Complex - Active Potassium Chloride ER 8 MEQ Orally Twice a day 2 tablets with food 12h Active Voriconazole 200 MG Active tylenol 1 tab Active Pantoprazole Sodium 40 MG Orally Once a day 1 tablet 24h Active Immune Globulin (Human) 6 GM Active PrednisoLONE Acetate 16.7 (15 Base) MG/5ML Orally Once a day 5 ml 24h Active Albuterol Active Forteo 600 MCG/2.4ML Subcutaneous Once a day 0.08 ml 24h Active Symbicort 160-4.5 MCG/ACT Inhalation Twice a day 2 puffs 12h Active Calcium 1000 + D 1000-800 MG-UNIT Active RESULTS No Results PROCEDURES Procedure Date Ordered Result Body Site INTRAORL-PERIAPICAL 1 FILM [id number] Aug 01, 2016 INTRAORL-PERIAPICAL EA ADD FILM Aug 01, 2016 [facility] Employee/Board adjustment Aug 01, 2016 Billing Notes on claim Aug 01, 2016 BITEWINGS - FOUR FILMS Aug 01, 2016 INTRAORL-PERIAPICAL EA ADD FILM Aug 01, 2016 TOPICAL FLUORIDE VARNISH Aug 01, 2016 PROPHYLAXIS - ADULT Aug 01, 2016 IMMUNIZATIONS No Known Immunizations MEDICAL (GENERAL) HISTORY Type Description Date Medical History Churgstress disease Medical History histoplasmosis Medical History asthma/COPD Surgical History hand right - tendon repair 2016 Surgical History 6 compression fractures - back surgery 2016 Surgical History emergency surgery for bleeding ulcer 2016 Surgical History catarac surgery bilateral Hospitalization History see above surgeries Hospitalization History 17 days for histoplasmosis 2014 Hospitalization History for ulceration repair 4 days 2015
[2017-07-17] MEDS ORDERED: CEFEPIME 2 GM/NS 50 ML IVPB IV NR ×2 (17:15)
[2017-07-17] MEDS ORDERED: diphenhydrAMINE 50 MG/ML INJ (BENADRYL) IV PRN (17:15)
[2017-07-17] MEDS ORDERED: NALOXONE 0.4 MG/ML 1 ML (NARCAN) VIAL IV PRN (17:15)
[2017-07-17] MEDS: RT-ALBUTEROL/IPRATROPIUM 3 ML (DUONEB) VIAL IH SCH ×2 (18:21→20:43)
--- NOTE | 2017-07-17 18:24 | Diagnostic Imaging Report ---
INDICATION: Pneumonia. COMPARISON: 01/31/2017. FINDINGS: Two views of the chest are obtained. Heart size is enlarged but unchanged. There is no central venous congestion. Left PICC line is unchanged. There is elevation of the right hemidiaphragm, which is unchanged. There is no pneumothorax, mediastinal widening, or pleural fluid. There is some minimal scarring or atelectasis in the mid right lung. The lungs are otherwise clear. There are multiple compression deformities with kyphoplasty in the thoracic spine. IMPRESSION: No acute abnormality is seen. No significant interval change from the prior study. Dictated by: Dictated on workstation # [id number]
[2017-07-17] MEDS: NS IV 1000 ML 1,000 ML IV SCH (18:30)
[2017-07-17 18:33] LABS: BASOPHILS % (AUTO) 0 % (0-10); EOSINOPHILS % (AUTO) 0 % (0-10); HEMATOCRIT 34 % (40-54); HEMOGLOBIN 10.4 G/DL (13.3-17.7); LYMPHOCYTES # (AUTO) 0.4 X 10^3 (1.0-4.0); LYMPHOCYTES % (AUTO) 4 % (12-44); MEAN CORPUSCULAR HEMOGLOBIN 28 PG (25-34); MEAN CORPUSCULAR HGB CONC 30 G/DL (32-36); MEAN CORPUSCULAR VOLUME 91 FL (80-99); MEAN PLATELET VOLUME 9.3 FL (7.4-10.4); MONOCYTES # (AUTO) 0.6 X 10^3 (0.0-1.0); MONOCYTES % (AUTO) 6 % (0-12); NEUTROPHILS # (AUTO) 9.2 X 10^3 (1.8-7.8); NEUTROPHILS % (AUTO) 90 % (42-75); PLATELET COUNT 134 10^3/uL (130-400); RED BLOOD COUNT 3.77 10^6/uL (4.35-5.85); RED CELL DISTRIBUTION WIDTH 16.3 % (10.0-14.5); WHITE BLOOD COUNT 10.2 10^3/uL (4.3-11.0)
[2017-07-17] MEDS: methylPREDNISolone 40 MG/ML (Solu-MEDROL) VIAL IV SCH (18:37)
[2017-07-17] MEDS: morphine PCA 30 MG/30 ML VIAL IV PRN (18:51)
[2017-07-17 18:59] LABS: BAND NEUTROPHILS 1 %; BASOPHILS % (MANUAL) 0 %; EOSINOPHILS % (MANUAL) 0 %; LYMPHOCYTES % (MANUAL) 5 %; MONOCYTES % (MANUAL) 2 %; NEUTROPHILS % (MANUAL) 92 %; RBC MORPH NORMAL
[2017-07-17] MEDS: ENOXAPARIN 40 MG/0.4 ML (LOVENOX) SYR SC SCH (19:06)
[2017-07-17 19:09] LABS: ALANINE AMINOTRANSFERASE 29 U/L (0-55); ALBUMIN 3.9 GM/DL (3.2-4.5); ALKALINE PHOSPHATASE 115 U/L (40-136); BILIRUBIN,TOTAL 0.4 MG/DL (0.1-1.0); BUN/CREATININE RATIO 24; CALCIUM 9.2 MG/DL (8.5-10.1); CARBON DIOXIDE 26 MMOL/L (21-32); CHLORIDE 99 MMOL/L (98-107); CREATININE SERUM 1.15 MG/DL (0.60-1.30); GFR ESTIMATED > 60; GLUCOSE 290 MG/DL (70-105); POTASSIUM 4.6 MMOL/L (3.6-5.0); SODIUM 144 MMOL/L (135-145); TOTAL PROTEIN 8.2 GM/DL (6.4-8.2)
[2017-07-17] MEDS: VORICONAZOLE 200 MG TAB (VFEND) NON-FORMULARY PO SCH (20:03)
[2017-07-17] MEDS: DILTIAZEM 240 MG (CARDIZEM CD) CAP PO SCH (20:04)
[2017-07-17] MEDS ORDERED: PATIENT MAY USE OWN MED,SINGLE MED PO SCH (21:00)
[2017-07-18] VITALS (30 sets, daily range): BP systolic 131–184; BP diastolic 75–110
[2017-07-18] MEDS ORDERED: inSUlin (REGULAR) HUMAN 1 UNIT/0.01 ML (CHARGE PER UNIT) ONE (00:53)
[2017-07-18] MEDS: methylPREDNISolone 40 MG/ML (Solu-MEDROL) VIAL IV SCH ×3 (01:04→17:32)
[2017-07-18] MEDS: RT-ALBUTEROL/IPRATROPIUM 3 ML (DUONEB) VIAL IH SCH ×6 (01:09→22:45)
[2017-07-18] MEDS: morphine PCA 30 MG/30 ML VIAL IV PRN ×3 (01:26→17:26)
[2017-07-18] MEDS ORDERED: hydrALAZINE (APESOLINE) 20 MG/ML VIAL IV ONE ×3 (03:30→23:15)
[2017-07-18] MEDS ORDERED: meTOprolol 5 MG/5 ML (LOPRESSOR) VIAL IV ONE ×2 (03:30→23:15)
[2017-07-18 04:37] LABS: BASOPHILS % (AUTO) 0 % (0-10); EOSINOPHILS % (AUTO) 0 % (0-10); HEMATOCRIT 35 % (40-54); HEMOGLOBIN 10.5 G/DL (13.3-17.7); LYMPHOCYTES # (AUTO) 0.6 X 10^3 (1.0-4.0); LYMPHOCYTES % (AUTO) 4 % (12-44); MEAN CORPUSCULAR HEMOGLOBIN 27 PG (25-34); MEAN CORPUSCULAR HGB CONC 30 G/DL (32-36); MEAN CORPUSCULAR VOLUME 92 FL (80-99); MEAN PLATELET VOLUME 9.4 FL (7.4-10.4); MONOCYTES # (AUTO) 0.6 X 10^3 (0.0-1.0); MONOCYTES % (AUTO) 4 % (0-12); NEUTROPHILS % (AUTO) 91 % (42-75); PLATELET COUNT 172 10^3/uL (130-400); RED BLOOD COUNT 3.85 10^6/uL (4.35-5.85); RED CELL DISTRIBUTION WIDTH 16.2 % (10.0-14.5); WHITE BLOOD COUNT 14.2 10^3/uL (4.3-11.0)
[2017-07-18 04:52] LABS: BUN/CREATININE RATIO 29; CALCIUM 9.4 MG/DL (8.5-10.1); CARBON DIOXIDE 27 MMOL/L (21-32); CHLORIDE 100 MMOL/L (98-107); CREATININE SERUM 1.15 MG/DL (0.60-1.30); GFR ESTIMATED > 60; GLUCOSE 173 MG/DL (70-105); MAGNESIUM 2.2 MG/DL (1.8-2.4); PHOSPHORUS 4.4 MG/DL (2.3-4.7); POTASSIUM 5.1 MMOL/L (3.6-5.0); SODIUM 144 MMOL/L (135-145)
--- NOTE | 2017-07-18 04:53 | Pulmonary Consultation ---
History of Present Illness History of Present Illness Date of Consultation 07/18/17 04:53 Time Seen by Provider: 06:45 Date of Admission History of Present Illness 62yo with hx of Churg Kunal, obesity, and MICHELLE (compliant with CPAP therapy) presented as direct admit from Dr. Adam's office secondary to worsening SOB, productive cough and wheezing. PT had an out patient sputum culture done that showed pseudomonus. He failed outpatient Levaquin treatment. He is currently in ICU and requiring BiPAP secondary to acute respiratory failure. He is currently getting Cefepime and sensitivities are pending. CXR appears stable without acute infiltration. I am consulted for ICU/pulmonary management. Allergies and Home Medications Allergies Coded Allergies: No Known Drug Allergies (Unverified , 01/15/11) Home Medications Acetaminophen 325 Mg Tablet, 325 MG PO, (Reported) Albuterol Sulfate 0.63 Mg/3 Ml Vial.neb, 1 EACH IH Q4H PRN for SHORTNESS OF BREATH, #1 Prescribed by: ERIC ADAM on 03/04/14 0835 Baclofen 10 Mg Tablet, 10 MG PO TID, (Reported) Budesonide/Formoterol Fumarate 10.2 Gm Hfa.aer.ad, 2 PUFF INH BID, (Reported) Bumetanide 2 Mg Tablet, 2 MG PO BID, (Reported) Calcium Carbonate 500 Mg Tab.chew, 1,000 MG PO DAILY, (Reported) Doxycycline Hyclate 100 Mg Capsule, 100 MG PO BID, (Reported) Hydrocodone/Acetaminophen 1 Each Tablet, 1 EACH PO Q4H PRN for PAIN, #20 Ref 0 Prescribed by: LETA CROSS on 12/18/16 1600 Ipratropium/Albuterol Sulfate 4 Gm Aero, 0 GM INH RTQID, #60 Ref 6 Prescribed by: ERIC ADAM on 03/04/14 0836 Loratadine 10 Mg Tablet, 10 MG PO PRN, (Reported) Pantoprazole Sodium 40 Mg Tablet.dr, 40 MG PO DAILY, (Reported) Potassium Chloride 8 Meq Tablet.er, 2 TAB PO DAILY, (Reported) Prednisone 10 Mg Tablet, 15 MG PO DAILY, (Reported) Sennosides 8.6 Mg Tablet, 8.6 MG PO DAILY, (Reported) Teriparatide 600 Mcg/2.4 Ml Syr, 600 MCG SQ DAILY, (Reported) Vitamin B Complex 1 Each Capsule, 1 EACH PO DAILY, (Reported) Voriconazole 200 Mg Tablet, 2 TAB PO DAILY, (Reported) Zolpidem Tartrate 5 Mg Tablet, 5 MG PO HS, (Reported) [Ivig] , (Reported) Past Ukhcqoy-Anrvyc-Okctgp Hx Patient Social History Alcohol Use: Rarely Uses Number of Drinks Today: 0 Recreational Drug Use: No Smoking Status: Former Smoker Type Used: Cigarettes Former Smoker, Quit: Jun 30, 1992 Recent Foreign Travel: No Contact w/Someone Who Travel: No Recent Infectious Disease Expo: No Recent Hopitalizations: No Immunizations Up To Date Tetanus Booster (TDap): Less than 5yrs Date of Pneumonia Vaccine: Apr 16, 2016 Date of Influenza Vaccine: Apr 03, 2017 Seasonal Allergies Seasonal Allergies: Yes Surgeries History of Surgeries: Yes (nasal polyps removal, several back surgery, tendon surgery in hand) Surgeries: Eye Surgery, Orthopedic Respiratory History of Respiratory Disorde: Yes (churgg kunal syndrome) Respiratory Disorders: Asthma Currently Using CPAP: Yes Currently Using BIPAP: No Cardiovascular History of Cardiac Disorders: Yes Cardiac Disorders: Hypertension Neurological History of Neurological Disord: Yes Neurological Disorders: Neuropathy Reproductive System Hx Reproductive Disorders: No Sexually Transmitted Disease: No HIV/AIDS: No Genitourinary History of Genitourinary Disor: No Gastrointestinal History of Gastrointestinal Di: Yes Gastrointestinal Disorders: Gastroesophageal Reflux, Gastrointestinal Bleed, Diverticulosis Musculoskeletal History of Musculoskeletal Dis: Yes (bone) Musculoskeletal Disorders: Degenerate Disk Disease, Osteoporosis, Back Injury, Chronic Back Pain Endocrine History of Endocrine Disorders: Yes Are Your Blood Sugars Over 250: No HEENT HEENT Disorders: Cataract Loss of Vision: Denies Hearing Impairment: Hearing Aide Right, Hearing Aide Left Cancer History of Cancer: No Psychosocial History of Psychiatric Problem: No Integumentary History of Skin or Integumenta: No Blood Transfusions History of Blood Disorders: No Adverse Reaction to a Blood Tr: No Family Medical History Family Medial History: Arthritis 19 MOTHER Asthma 19 MOTHER Review of Systems Time Seen by Provider: 06:49 Constitutional: Chills, Sweats, Weakness, Malaise, No: Fever Eyes: No: Pain, Vision change, Conjunctivae inflammation, Eyelid inflammation, Other, Redness ENT: Nose discharge, Nose congestion Respiratory: Cough, Shortness of breath, SOB with excertion, Wheezing, Pleuritic Pain, Sputum, No: Hemoptysis Cardiovascular: Chest Pain, Orthopnea, Paroxysmal Noc. Dyspnea Gastrointestinal: Constipation, No: Nausea, Vomiting, Abdominal Pain, Diarrhea , Melena, Hematochezia, Other Neurological: Weakness, Incoordination, Confusion Exam Exam Vital Signs Date Time Temp Pulse Resp B/P (MAP) Pulse Ox O2 Delivery O2 Flow Rate FiO2 07/18/17 04:00 68 25 149/110 (123) 96 Vapotherm 45.00 30.00 07/18/17 03:32 103 50.00 07/18/17 03:00 91 20 164/93 (116) 98 Vapotherm 45.00 30.00 07/18/17 02:00 98 22 174/104 (127) 98 Vapotherm 45.00 30.00 07/18/17 01:54 110 50.00 110 07/18/17 01:26 30 07/18/17 01:09 96 Vapotherm 30.00 07/18/17 01:00 98 07/18/17 01:00 99 30 166/97 (120) 95 Vapotherm 45.00 30.00 07/18/17 00:00 102 23 159/103 (121) 96 Vapotherm 45.00 30.00 07/17/17 23:00 102 24 156/90 (112) 97 Vapotherm 45.00 30.00 07/17/17 22:00 112 22 172/107 (128) 97 Vapotherm 45.00 30.00 07/17/17 21:00 114 10 154/82 (106) 98 Vapotherm 45.00 30.00 07/17/17 20:44 97 Vapotherm 30.00 07/17/17 20:05 30.00 45 07/17/17 20:00 98.9 07/17/17 20:00 104 12 182/95 (124) 96 Vapotherm 45.00 30.00 07/17/17 19:00 110 15 161/84 (109) 96 Vapotherm 45.00 30.00 07/17/17 19:00 110 07/17/17 19:00 Vapotherm 45.00 30.00 07/17/17 19:00 96 Nasal Cannula 4.00 07/17/17 18:51 19 07/17/17 18:21 97 High Flow N/C 5.00 07/17/17 18:00 106 26 163/87 (112) 96 High Flow N/C 5.00 07/17/17 18:00 High Flow N/C 5.00 07/17/17 17:30 162/97 (118) 07/17/17 16:45 99.8 112 18 192/107 (135) 97 High Flow N/C 5.00 I & O 07/18/17 07:00 Intake Total 750 ml Balance 750 ml General Appearance: Anxious, Moderate Distress HEENT: PERRL/EOMI, Normal ENT Inspection Neck: Full Range of Motion, Normal Inspection Respiratory: Accessory Muscle Use, Decreased Breath Sounds, Respiratory Distress, Wheezing Cardiovascular: Tachycardia Gastrointestinal: normal bowel sounds, soft, no organomegaly, no pulsatile mass Neurologic/Psychiatric: Alert, Oriented x3 Skin: Normal Color, Warm/Dry Lymphatic: No Adenopathy Results Lab Laboratory Tests 07/17/17 18:26 07/18/17 04:30 Assessment/Plan Assessment/Plan -Acute respiratory failure -BiPAP PRN -SVNs -Oxygen -check ABG -Churg Kunal acute exacerbation -Continue Solumedrol pneumonia with Pseudomonus -Continue Cefepime and await cultures Immunosuppression -hx of stable BETHANY nodule per CT scan 255 Clinical Quality Measures DVT/VTE Risk/Contraindication: Risk Factor Score Per Nursin RFS Level Per Nursing on Admit: 3=High MEDINA VILLEGAS DO Jul 18, 2017 04:53
[2017-07-18] MEDS: POTASSIUM CL 10MEQ/50ML IVPB 50 ML IV SCH (05:13)
[2017-07-18] MEDS: MAGNESIUM 1 GM/100 ML IVPB 100 ML IV SCH (05:13)
[2017-07-18] MEDS: KCL 20 MEQ TAB (K-DUR) PO SCH (05:14)
[2017-07-18 05:15] LABS: ABG BASE EXCESS 4.4 MMOL/L (-2.5-2.5); ABG OXYGEN SATURATION 100 % (94-100); ABG PCO2 50 MMHG (35-45); ABG PH 7.38 (7.37-7.43); ABG PO2 134 MMHG (79-93); ABG TCO2 30.9 MMOL/L (21.0-31.0)
[2017-07-18 05:16] LABS: ALLENS TEST YES-POS; INSPIRED O2 45% BIPAP; PATIENT TEMP 97.2; VENTILATOR NO
[2017-07-18] MEDS: PANTOPRAZOLE 40 MG (PROTONIX) TAB PO SCH (05:28)
[2017-07-18] MEDS: inSUlin (REGULAR) HUMAN 1 UNIT/0.01 ML (CHARGE PER UNIT) SC SCH ×4 (05:28→20:55)
[2017-07-18] MEDS: NS IV 1000 ML 1,000 ML IV SCH ×3 (06:38→22:23)
[2017-07-18] MEDS: RT-BUDESONIDE NEBS 0.5 MG/2ML (PULMICORT) AMP INH SCH ×2 (07:05→18:54)
--- NOTE | 2017-07-18 07:09 | Diagnostic Imaging Report ---
INDICATION: Chest wall pain, pneumonia.. TECHNIQUE: Single view chest 4:13 AM. CORRELATION STUDY: 07/17/2017 FINDINGS: Left-sided central line tip projects over the SVC unchanged. Heart size enlarged, mediastinum is prominent. Vasculature overall within normal limits. Prominent asymmetrically elevated right diaphragm with right lung volume loss. Kyphoplasty changes about the thoracic spine. IMPRESSION: 1. Generally stable chest. Cardiac enlargement without failure. Dictated by: Dictated on workstation # [id number]
[2017-07-18] MEDS: amLODIPine 10 MG (NORVASC) TAB PO SCH (08:22)
[2017-07-18] MEDS: VORICONAZOLE 200 MG TAB (VFEND) NON-FORMULARY PO SCH ×2 (08:23→20:53)
[2017-07-18] MEDS ORDERED: CEFEPIME 2 GM/NS 50 ML IVPB IV SCH ×2 (09:00)
[2017-07-18] MEDS ORDERED: DILTIAZEM 240 MG (CARDIZEM CD) CAP PO SCH (09:00)
[2017-07-18] MEDS ORDERED: AZIT250T12 PO (10:54)
[2017-07-18] MEDS ORDERED: TEST1PAT7 TD (10:54)
[2017-07-18] MEDS ORDERED: HYDR-3820 PO (10:54)
[2017-07-18] MEDS ORDERED: LEVO500T2 PO (10:54)
[2017-07-18] MEDS ORDERED: ALBU2.5V4 NEB (10:54)
[2017-07-18] MEDS ORDERED: PRD20T PO (10:54)
[2017-07-18] MEDS ORDERED: DILT180C82 PO (10:54)
[2017-07-18] MEDS ORDERED: UMEC62.5 IH (10:54)
[2017-07-18] MEDS ORDERED: LOSA25TA21 PO (10:54)
[2017-07-18] MEDS ORDERED: BUDE10.2 IH (10:54)
[2017-07-18] MEDS ORDERED: IPRA4AER IH (10:54)
[2017-07-18] MEDS ORDERED: SODI473S7 TOP (11:37)
[2017-07-18] MEDS ORDERED: CHOL10007 PO (11:37)
[2017-07-18] MEDS ORDERED: MULT-35 PO (11:37)
[2017-07-18] MEDS ORDERED: SENN-36 PO (11:37)
[2017-07-18] MEDS ORDERED: ACET-168 PO (11:37)
--- NOTE | 2017-07-18 12:40 | History & Physical-Hospitalist ---
HPI History of Present Illness: HPI/Chief Complaint Mr. 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 Initially sputum was clear but then it became colored. He increase his prednisone from 20 mg to 40 mg daily and presented to my office on the . There he did have significant wheezing but was maintaining saturations on room air 95-96 percent. He did not wish to be admitted to the hospital at that time so he was discharged on Levaquin. He has a past history of Pseudomonas that was pansensitive cultured from a venous insufficiency ulcer but also required hyperbaric oxygen therapy on his right lower extremity. It has been improving through wound care but at one point was quite large and he still has a significant area of skin breakdown although he does have pink granulation tissue no increase in pain and they have been pleased as of late with wound healing. He called my office the afternoon of the reporting the onset of severe left-sided chest pain worse with breathing worse with cough that actually followed a paroxysm of cough. It was too painful to take deep breaths and he was feeling more short of breath. Sputum culture obtained as an outpatient was growing Pseudomonas on admission but sensitivities were not yet available. He is at high risk for progression to overt respiratory failure and was admitted to the intensive care unit for close monitoring and further therapeutics. Past medical history is most significant for Churg-Nils tenting as pulmonary hemorrhage in 2001. Other than prednisone his only other medication is IVIG. He has a history of disseminated histoplasmosis for which she has been on voriconazole for the past several years continues to have elevated androgen levels and urine and blood. They have been controlled however with chronic suppressive voriconazole therapy. He follows at for his pulmonary and infectious disease issues. 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 He has been on Forteo as of late but I did have concerns over possible cough related rib fracture considering this history. Date Seen 07/17/17 Time Seen by Provider: 17:30 Attending Physician Eric Adam MD PCP Eric Adam MD Referring Physician Date of Admission Jul 17, 2017 at 16:50 Home Medications & Allergies Home Medications Reviewed patient Home Medication Reconciliation Form Allergies Allergies Coded Allergies No Known Drug Allergies (Unverified01/15/11) Past Apmajpo-Izfmkl-Rangef Hx Patient Social History Alcohol Use: Rarely Uses Number of Drinks Today: 0 Recreational Drug Use: No Smoking Status: Former Smoker Former Smoker, Quit: Jun 30, 1992 Type Used: Cigarettes Physical Abuse Screen: No Sexual Abuse: No Recent Foreign Travel: No Contact w/other who traveled: No Recent Hopitalizations: No Recent Infectious Disease Expo: No Immunizations Up To Date Tetanus Booster (TDap): Less than 5yrs Date of Pneumonia Vaccine: Apr 16, 2016 Date of Influenza Vaccine: Apr 03, 2017 Seasonal Allergies Seasonal Allergies: Yes Surgeries Yes (nasal polyps removal, several back surgery, tendon surgery in hand) Eye Surgery, Orthopedic Respiratory Yes (churgg kunal syndrome) Currently Using CPAP: Yes Currently Using BIPAP: No Cardiovascular Yes Hypertension Neurological Yes Neuropathy Reproductive System Hx Reproductive Disorders: No Sexually Transmitted Disease: No HIV/AIDS: No Genitourinary No Gastrointestinal Yes Gastroesophageal Reflux, Gastrointestinal Bleed, Diverticulosis Musculoskeletal Yes (bone) Degenerate Disk Disease, Osteoporosis, Back Injury, Chronic Back Pain Endocrine History of Endocrine Disorders: Yes Are Your Blood Sugars Over 250: No HEENT HEENT Disorders: Cataract Loss of Vision: Denies Hearing Impairment: Hearing Aide Right, Hearing Aide Left Cancer No Psychosocial History of Psychiatric Problem: No Integumentary History of Skin or Integumenta: No Blood Transfusions History of Blood Disorders: No Adverse Reaction to a Blood Tr: No Family Medical History Family Hx: Arthritis 19 MOTHER Asthma 19 MOTHER Review of Systems Constitutional: chills, fever, weakness Respiratory: cough, dyspnea on exertion, No hemoptysis, orthopnea, phlegm, short of breath, No stridor, wheezing, No other Cardiovascular: chest pain, edema (Able per his report), No Hx of Intervention , No palpitations, No syncope, No vascular heart diseas, No other Physical Exam Physical Exam Vital Signs Vital Sign - Last 12Hours 07/17/17 07/17/17 16:45 20:05 Temp 99.8 Pulse 112 Resp 18 B/P (MAP) 192/107 (135) Pulse Ox 97 O2 Delivery High Flow N/C O2 Flow Rate 5.00 FiO2 45 Capillary Refill : General Appearance: Anxious, Chronically ill, Moderate Distress, Other ( cushingoid) Neck: Full Range of Motion, Normal Inspection, Non Tender, Supple, Carotid Bruit Respiratory: Chest Non Tender (To palpation), Accessory Muscle Use, Other Cardiovascular: Regular Rate, Rhythm, No Gallop, No JVD, No Murmur, Normal Peripheral Pulses, Tachycardia Gastrointestinal: Normal Bowel Sounds, No Organomegaly, No Pulsatile Mass, Non Tender, Soft Extremity: Other (Right leg is wrapped there appears to be 1+ edema on the right there is 2+ edema on the left feet are warm) Neurologic/Psychiatric: Alert, Oriented x3 Results Results/Procedures Lab Laboratory Tests 07/17/17 18:26 07/18/17 04:30 Assessment/Plan Admission Diagnosis 1. Respiratory failure secondary to pseudomonas related bronchitis we'll initiate IV steroid therapy BiPAP therapy with supplemental oxygen and bronchodilator therapy. The case is been discussed with Dr. Fernandez who will be consulted. 2. Chest wall pain favor acute muscle spasm from coughing over rib fracture. 3. 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 4. History of osteoporosis the patient has been on Forteo for over 6 months will hold while in the hospital but resume on discharge. Clinical Quality Measures DVT/VTE Risk/Contraindication: Risk Factor Score Per Nursin RFS Level Per Nursing on Admit: 3=High ERIC ADAM MD Jul 18, 2017 12:40
[2017-07-18] MEDS ORDERED: ORPHENADRINE 60 MG/2 ML (NORFLEX) AMP IM NR (12:44)
--- NOTE | 2017-07-18 14:56 | Progress Note-Hospitalist ---
Subjective HPI/CC On Admission Date Seen by Provider: Jul 18, 2017 Time Seen by Provider: 10:00 Mr. 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 Initially sputum was clear but then it became colored. He increase his prednisone from 20 mg to 40 mg daily and presented to my office on the . There he did have significant wheezing but was maintaining saturations on room air 95-96 percent. He did not wish to be admitted to the hospital at that time so he was discharged on Levaquin. He has a past history of Pseudomonas that was pansensitive cultured from a venous insufficiency ulcer but also required hyperbaric oxygen therapy on his right lower extremity. It has been improving through wound care but at one point was quite large and he still has a significant area of skin breakdown although he does have pink granulation tissue no increase in pain and they have been pleased as of late with wound healing. He called my office the afternoon of the reporting the onset of severe left-sided chest pain worse with breathing worse with cough that actually followed a paroxysm of cough. It was too painful to take deep breaths and he was feeling more short of breath. Sputum culture obtained as an outpatient was growing Pseudomonas on admission but sensitivities were not yet available. He is at high risk for progression to overt respiratory failure and was admitted to the intensive care unit for close monitoring and further therapeutics. Past medical history is most significant for Churg-Nils tenting as pulmonary hemorrhage in 2001. Other than prednisone his only other medication is IVIG. He has a history of disseminated histoplasmosis for which she has been on voriconazole for the past several years continues to have elevated androgen levels and urine and blood. They have been controlled however with chronic suppressive voriconazole therapy. He follows at for his pulmonary and infectious disease issues. 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 He has been on Forteo as of late but I did have concerns over possible cough related rib fracture considering this history. Subjective/Events-last exam Patient reports little improvement in chest pain on morphine ROW BOSS. Shortness of breath is stable he is relatively comfortable at rest 1 not coughing. He has no exertional reserve. He is producing a small amount of yellowish sputum with audible wheezing noted during the interview. He cannot speak in full sentences due to shortness of breath. He denies shaking chills or fever. Objective Exam Vital Signs Vital Sign - Last 12Hours 07/17/17 07/17/17 16:45 20:05 Temp 99.8 Pulse 112 Resp 18 B/P (MAP) 192/107 (135) Pulse Ox 97 O2 Delivery High Flow N/C O2 Flow Rate 5.00 FiO2 45 Capillary Refill : General Appearance: Chronically ill, Moderate Distress Respiratory: Accessory Muscle Use, Other (Crease breath sounds right base coarse rales with wheezing throughout all other lung henderson.) Cardiovascular: Regular Rate, Rhythm, No Edema, No Gallop, No JVD, No Murmur, Tachycardia (Sinus) Gastrointestinal: Normal Bowel Sounds, No Organomegaly, No Pulsatile Mass, Non Tender, Soft Extremity: Pedal Edema (They will compared to yesterday) Neurologic/Psychiatric: Alert, Oriented x3 Results/Procedures Lab Laboratory Tests 07/17/17 18:26 07/18/17 04:30 Assessment/Plan Assessment and Plan Assess & Plan/Chief Complaint 1. Pseudomonas bronchitis with acute exacerbation of underlying lung disease. Pseudomonas on previous outpatient culture from Friday sensitive to cefepime will continue. Due to marginal respiratory status and need for BiPAP intermittently continue ICU monitoring for another 24 hours reevaluate in the morning. 2.Churg-Kunal/EGPA acute flare doubtful continue his monthly IVIG and considering number 1 higher dose Solu-Medrol taper Solu-Medrol when reactive airways show signs of improvement. 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 4. Left chest wall pain favor muscle spasm as it is a little more diffuse than one would expect for occult rib fracture as well as minimal improvement on morphine will add IV Norflex patient warned about sedation continue O2 sat monitoring continuous. ERIC ADAM MD Jul 18, 2017 14:56
[2017-07-18] MEDS: ENOXAPARIN 40 MG/0.4 ML (LOVENOX) SYR SC SCH (17:32)
--- NOTE | 2017-07-18 18:25 | Wound Care Progress Note ---
Subjective Subjective Subjective/Events-last exam 62 year old male with R calf ulcerations due to 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related vasculitis. Objective Exam Last Set of Vital Signs Vital Signs Date Time Temp Pulse Resp B/P (MAP) Pulse Ox O2 Delivery O2 Flow Rate FiO2 07/18/17 17:26 24 07/18/17 17:00 101 176/97 (123) 83 NIV Bilevel 40.00 07/18/17 16:00 98.0 07/18/17 15:02 45 Capillary Refill : I&O Intake and Output 07/18/17 00:00 Intake Total 750 ml Balance 750 ml Intake Oral 700 ml IV Total 50 ml # Voids 3 Daily Weight Change No Results Lab Laboratory Tests 07/17/17 18:26: White Blood Count 10.2, Red Blood Count 3.77L, Hemoglobin 10.4L, Hematocrit 34L , Mean Corpuscular Volume 91, Mean Corpuscular Hemoglobin 28, Mean Corpuscular Hemoglobin Concent 30L, Red Cell Distribution Width 16.3H, Platelet Count 134, Mean Platelet Volume 9.3, Neutrophils (%) (Auto) 90H, Lymphocytes (%) (Auto) 4L , Monocytes (%) (Auto) 6, Eosinophils (%) (Auto) 0, Basophils (%) (Auto) 0, Neutrophils # (Auto) 9.2H, Lymphocytes # (Auto) 0.4L, Monocytes # (Auto) 0.6, Eosinophils # (Auto) 0.0, Basophils # (Auto) 0.0, Neutrophils % (Manual) 92, Lymphocytes % (Manual) 5, Monocytes % (Manual) 2, Eosinophils % (Manual) 0, Basophils % (Manual) 0, Band Neutrophils 1, Blood Morphology Comment NORMAL, Sodium Level 144, Potassium Level 4.6, Chloride Level 99, Carbon Dioxide Level 26, Anion Gap 19H, Blood Urea Nitrogen 28H, Creatinine 1.15, Estimat Glomerular Filtration Rate > 60, BUN/Creatinine Ratio 24, Glucose Level 290H, Calcium Level 9.2, Total Bilirubin 0.4, Aspartate Amino Transf (AST/SGOT) 20, Alanine Aminotransferase (ALT/SGPT) 29, Alkaline Phosphatase 115, Total Protein 8.2, Albumin 3.9 07/17/17 22:10: Glucometer 220H 07/18/17 00:47: Glucometer 252H 1/19/18 04:30: White Blood Count 14.2H, Red Blood Count 3.85L, Hemoglobin 10.5L, Hematocrit 35L , Mean Corpuscular Volume 92, Mean Corpuscular Hemoglobin 27, Mean Corpuscular Hemoglobin Concent 30L, Red Cell Distribution Width 16.2H, Platelet Count 172, Mean Platelet Volume 9.4, Neutrophils (%) (Auto) 91H, Lymphocytes (%) (Auto) 4L , Monocytes (%) (Auto) 4, Eosinophils (%) (Auto) 0, Basophils (%) (Auto) 0, Neutrophils # (Auto) 13.0H, Lymphocytes # (Auto) 0.6L, Monocytes # (Auto) 0.6, Eosinophils # (Auto) 0.0, Basophils # (Auto) 0.0, Sodium Level 144, Potassium Level 5.1H, Chloride Level 100, Carbon Dioxide Level 27, Anion Gap 17H, Blood Urea Nitrogen 33H, Creatinine 1.15, Estimat Glomerular Filtration Rate > 60, BUN /Creatinine Ratio 29, Glucose Level 173H, Calcium Level 9.4, Phosphorus Level 4.4, Magnesium Level 2.2, B-Type Natriuretic Peptide 106.6H 07/18/17 05:10: Blood Gas Puncture Site R RAD, Blood Gas Patient Temperature 97.2, Arterial Blood pH 7.38, Arterial Blood Partial Pressure CO2 50H, Arterial Blood Partial Pressure O2 134H, Arterial Blood HCO3 29H, Arterial Blood Total CO2 30.9, Arterial Blood Oxygen Saturation 100, Arterial Blood Base Excess 4.4H, Jamil Test YES-POS, Blood Gas Ventilator Setting NO, Blood Gas Inspired Oxygen 45% BIPAP 07/18/17 10:49: Glucometer 203H 07/18/17 15:56: Glucometer 216H MIKAYLA LOPEZ MD Jul 18, 2017 18:25
[2017-07-18] MEDS: DILTIAZEM 240 MG (CARDIZEM CD) CAP PO SCH (20:53)
[2017-07-18] MEDS: CEFEPIME 2 GM/D5W 50 ML IVPB IV SCH ×2 (20:54)
[2017-07-18] MEDS: ORPHENADRINE 60 MG/2 ML (NORFLEX) AMP IM SCH (20:56)
[2017-07-18] MEDS ORDERED: hydrALAZINE (APESOLINE) 20 MG/ML VIAL ONE (22:55)
[2017-07-18] MEDS: meTOprolol 5 MG/5 ML (LOPRESSOR) VIAL IV PRN (23:48)
[2017-07-19] VITALS (30 sets, daily range): BP systolic 114–167; BP diastolic 64–94
[2017-07-19] MEDS: RT-ALBUTEROL/IPRATROPIUM 3 ML (DUONEB) VIAL IH SCH ×6 (01:31→22:07)
[2017-07-19] MEDS: morphine PCA 30 MG/30 ML VIAL IV PRN (01:41)
[2017-07-19] MEDS: methylPREDNISolone 40 MG/ML (Solu-MEDROL) VIAL IV SCH ×3 (01:44→18:06)
[2017-07-19 04:17] LABS: BASOPHILS % (AUTO) 0 % (0-10); EOSINOPHILS % (AUTO) 0 % (0-10); HEMATOCRIT 32 % (40-54); HEMOGLOBIN 9.8 G/DL (13.3-17.7); LYMPHOCYTES # (AUTO) 0.7 X 10^3 (1.0-4.0); LYMPHOCYTES % (AUTO) 4 % (12-44); MEAN CORPUSCULAR HEMOGLOBIN 28 PG (25-34); MEAN CORPUSCULAR HGB CONC 30 G/DL (32-36); MEAN CORPUSCULAR VOLUME 91 FL (80-99); MEAN PLATELET VOLUME 9.7 FL (7.4-10.4); MONOCYTES # (AUTO) 0.8 X 10^3 (0.0-1.0); MONOCYTES % (AUTO) 5 % (0-12); NEUTROPHILS # (AUTO) 14.1 X 10^3 (1.8-7.8); NEUTROPHILS % (AUTO) 90 % (42-75); PLATELET COUNT 147 10^3/uL (130-400); RED BLOOD COUNT 3.55 10^6/uL (4.35-5.85); RED CELL DISTRIBUTION WIDTH 16.6 % (10.0-14.5); WHITE BLOOD COUNT 15.6 10^3/uL (4.3-11.0)
[2017-07-19 04:38] LABS: BAND NEUTROPHILS 2 %; BASOPHILS % (MANUAL) 0 %; EOSINOPHILS % (MANUAL) 0 %; LYMPHOCYTES % (MANUAL) 2 %; MONOCYTES % (MANUAL) 2 %; NEUTROPHILS % (MANUAL) 94 %
[2017-07-19 04:39] LABS: ANISOCYTOSIS SLIGHT; POLYCHROMASIA SLIGHT
[2017-07-19 05:02] LABS: CALCIUM 8.9 MG/DL (8.5-10.1); CREATININE SERUM 1.37 MG/DL (0.60-1.30); MAGNESIUM 2.3 MG/DL (1.8-2.4); PHOSPHORUS 5.7 MG/DL (2.3-4.7); POTASSIUM 4.9 MMOL/L (3.6-5.0)
[2017-07-19 05:43] LABS: ABG BASE EXCESS 0.8 MMOL/L (-2.5-2.5); ABG OXYGEN SATURATION 100 % (94-100); ABG PCO2 46 MMHG (35-45); ABG PH 7.36 (7.37-7.43); ABG PO2 147 MMHG (79-93); ABG TCO2 27.2 MMOL/L (21.0-31.0); ALLENS TEST YES-POS; INSPIRED O2 40% FIO2
[2017-07-19 05:44] LABS: PATIENT TEMP 97.4; VENTILATOR NO
[2017-07-19] MEDS: POTASSIUM CL 10MEQ/50ML IVPB 50 ML IV SCH (05:46)
[2017-07-19] MEDS: KCL 20 MEQ TAB (K-DUR) PO SCH (05:46)
[2017-07-19] MEDS: MAGNESIUM 1 GM/100 ML IVPB 100 ML IV SCH (05:46)
[2017-07-19] MEDS: RT-BUDESONIDE NEBS 0.5 MG/2ML (PULMICORT) AMP INH SCH ×2 (06:36→20:55)
[2017-07-19] MEDS: inSUlin (REGULAR) HUMAN 1 UNIT/0.01 ML (CHARGE PER UNIT) SC SCH ×4 (06:43→20:53)
[2017-07-19] MEDS: PANTOPRAZOLE 40 MG (PROTONIX) TAB PO SCH (06:43)
--- NOTE | 2017-07-19 07:14 | Diagnostic Imaging Report ---
INDICATION: Pneumonia and chest wall pain. Comparison made with prior examination from 07/18/2017. FINDINGS: There is cardiomegaly. There is some elevation of the right hemidiaphragm. There is no pleural effusion or pneumothorax. Mediastinum is unremarkable. Left upper extremity PICC line remains in place. IMPRESSION: No acute cardiopulmonary abnormality. Cardiomegaly and unchanged elevation of the right hemidiaphragm. Dictated by: Dictated on workstation # [id number]
[2017-07-19] MEDS ORDERED: FUROSEMIDE 40 MG/4 ML INJ (LASIX) IVP NR (07:45)
--- NOTE | 2017-07-19 07:50 | Progress Note-Hospitalist ---
Subjective HPI/CC On Admission Date Seen by Provider: Jul 19, 2017 Time Seen by Provider: 07:20 Mr. 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 Initially sputum was clear but then it became colored. He increase his prednisone from 20 mg to 40 mg daily and presented to my office on the . There he did have significant wheezing but was maintaining saturations on room air 95-96 percent. He did not wish to be admitted to the hospital at that time so he was discharged on Levaquin. He has a past history of Pseudomonas that was pansensitive cultured from a venous insufficiency ulcer but also required hyperbaric oxygen therapy on his right lower extremity. It has been improving through wound care but at one point was quite large and he still has a significant area of skin breakdown although he does have pink granulation tissue no increase in pain and they have been pleased as of late with wound healing. He called my office the afternoon of the reporting the onset of severe left-sided chest pain worse with breathing worse with cough that actually followed a paroxysm of cough. It was too painful to take deep breaths and he was feeling more short of breath. Sputum culture obtained as an outpatient was growing Pseudomonas on admission but sensitivities were not yet available. He is at high risk for progression to overt respiratory failure and was admitted to the intensive care unit for close monitoring and further therapeutics. Past medical history is most significant for Churg-Nils tenting as pulmonary hemorrhage in 2001. Other than prednisone his only other medication is IVIG. He has a history of disseminated histoplasmosis for which she has been on voriconazole for the past several years continues to have elevated androgen levels and urine and blood. They have been controlled however with chronic suppressive voriconazole therapy. He follows at for his pulmonary and infectious disease issues. 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 He has been on Forteo as of late but I did have concerns over possible cough related rib fracture considering this history. Subjective/Events-last exam Pt reports feeling slightly better today. He does have some swelling in his legs as he has not received his diuretic since admission. He also does not feel that the morphine is helping as much as the Norflex. Ok with DC-ing ADULT AND PEDIATRIC NEUROLOGIST. Objective Exam Vital Signs Vital Sign - Last 12Hours 07/17/17 07/17/17 16:45 20:05 Temp 99.8 Pulse 112 Resp 18 B/P (MAP) 192/107 (135) Pulse Ox 97 O2 Delivery High Flow N/C O2 Flow Rate 5.00 FiO2 45 Capillary Refill : General Appearance: No Apparent Distress, WD/WN Respiratory: No Accessory Muscle Use, Wheezing, Other (on BiPAP) Cardiovascular: Regular Rate, Rhythm, No Murmur Gastrointestinal: Normal Bowel Sounds, Non Tender, Soft Extremity: Swelling (bilateral lower extremities), Other (right lower leg wound wrapped in dressing by Dr Orourke, dressing clean and dry) Neurologic/Psychiatric: Alert, Oriented x3, No Motor/Sensory Deficits Results/Procedures Lab Laboratory Tests 07/19/17 04:11 Assessment/Plan Assessment and Plan Assess & Plan/Chief Complaint Pneumonia Diagnosis/Problems Diagnosis/Problems (1) CAP (community acquired pneumonia) Assessment & Plan: psuedomonas on culture from Dr Cox's office Continue on Cefepime Still needing BiPAP MAT Protocol Pulm consulted, appreciate recs Qualifiers: Qualified Codes: J18.9 - Pneumonia, unspecified organism (2) 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 Assessment & Plan: Continue on Solumedrol Receives IVIG Follows with [facility] pulm and infectious disease On voriconazole (3) Diabetes mellitus Status: Chronic Assessment & Plan: Steroid induced on Sliding Scale Qualifiers: Qualified Codes: E09.8 - Drug or chemical induced diabetes mellitus with unspecified complications (4) Essential (primary) hypertension Assessment & Plan: Somewhat labile but trending down over the past few days Continue to monitor (5) Chest wall pain Assessment & Plan: On Morphine ADULT AND PEDIATRIC NEUROLOGIST Will DC and transition to oral with IV Morphine for breakthrough ROBERTO DELATORRE MD Jul 19, 2017 07:50
[2017-07-19] MEDS: amLODIPine 10 MG (NORVASC) TAB PO SCH (08:41)
[2017-07-19] MEDS: CEFEPIME 2 GM/D5W 50 ML IVPB IV SCH ×4 (08:42→20:41)
[2017-07-19] MEDS: ORPHENADRINE 60 MG/2 ML (NORFLEX) AMP IM SCH ×2 (08:46→20:41)
[2017-07-19] MEDS: VORICONAZOLE 200 MG TAB (VFEND) NON-FORMULARY PO SCH ×2 (08:46→19:59)
[2017-07-19] MEDS: HYDROcodone/APAP 5 MG/325 MG (LORTAB) TAB PO PRN ×3 (08:46→18:06)
[2017-07-19] MEDS: NS IV 1000 ML 1,000 ML IV SCH (13:15)
[2017-07-19] MEDS: morphine INJ 4 MG/ML 1 ML (VIAL/SYRINGE) IVP PRN ×4 (13:26→20:41)
[2017-07-19] MEDS: ENOXAPARIN 40 MG/0.4 ML (LOVENOX) SYR SC SCH (18:06)
[2017-07-19] MEDS: DILTIAZEM 240 MG (CARDIZEM CD) CAP PO SCH (20:40)
[2017-07-19] MEDS: SENNOSIDES 8.6 MG (SENOKOT) TAB PO PRN (20:40)
[2017-07-20] VITALS (33 sets, daily range): BP systolic 123–169; BP diastolic 57–90
[2017-07-20] MEDS: RT-ALBUTEROL/IPRATROPIUM 3 ML (DUONEB) VIAL IH SCH ×5 (01:58→18:07)
[2017-07-20] MEDS: methylPREDNISolone 40 MG/ML (Solu-MEDROL) VIAL IV SCH ×3 (02:30→18:02)
[2017-07-20] MEDS: morphine INJ 4 MG/ML 1 ML (VIAL/SYRINGE) IVP PRN ×5 (02:41→17:14)
[2017-07-20] MEDS: HYDROcodone/APAP 5 MG/325 MG (LORTAB) TAB PO PRN (02:41)
[2017-07-20] MEDS: NS IV 1000 ML 1,000 ML IV SCH (02:47)
[2017-07-20 04:54] LABS: BASOPHILS % (AUTO) 0 % (0-10); EOSINOPHILS % (AUTO) 0 % (0-10); HEMATOCRIT 30 % (40-54); HEMOGLOBIN 9.1 G/DL (13.3-17.7); LYMPHOCYTES # (AUTO) 0.4 X 10^3 (1.0-4.0); LYMPHOCYTES % (AUTO) 4 % (12-44); MEAN CORPUSCULAR HEMOGLOBIN 28 PG (25-34); MEAN CORPUSCULAR HGB CONC 31 G/DL (32-36); MEAN CORPUSCULAR VOLUME 90 FL (80-99); MEAN PLATELET VOLUME 9.9 FL (7.4-10.4); MONOCYTES # (AUTO) 0.6 X 10^3 (0.0-1.0); MONOCYTES % (AUTO) 5 % (0-12); NEUTROPHILS # (AUTO) 10.7 X 10^3 (1.8-7.8); NEUTROPHILS % (AUTO) 91 % (42-75); PLATELET COUNT 125 10^3/uL (130-400); RED CELL DISTRIBUTION WIDTH 16.1 % (10.0-14.5); WHITE BLOOD COUNT 11.8 10^3/uL (4.3-11.0)
[2017-07-20 04:55] LABS: ABG OXYGEN SATURATION 97 % (94-100); ABG PCO2 47 MMHG (35-45); ABG PO2 79 MMHG (79-93); ABG TCO2 26.7 MMOL/L (21.0-31.0); ALLENS TEST YES-POS; INSPIRED O2 35% BIPAP; PATIENT TEMP 97.2; VENTILATOR NO
[2017-07-20 04:57] LABS: ABG PH 7.34 (7.37-7.43)
[2017-07-20 05:22] LABS: CALCIUM 8.7 MG/DL (8.5-10.1); CREATININE SERUM 1.39 MG/DL (0.60-1.30); MAGNESIUM 2.3 MG/DL (1.8-2.4); PHOSPHORUS 4.7 MG/DL (2.3-4.7); POTASSIUM 4.8 MMOL/L (3.6-5.0)
[2017-07-20] MEDS: POTASSIUM CL 10MEQ/50ML IVPB 50 ML IV SCH (05:24)
[2017-07-20] MEDS: MAGNESIUM 1 GM/100 ML IVPB 100 ML IV SCH (05:24)
[2017-07-20] MEDS: KCL 20 MEQ TAB (K-DUR) PO SCH (05:25)
[2017-07-20] MEDS: inSUlin (REGULAR) HUMAN 1 UNIT/0.01 ML (CHARGE PER UNIT) SC SCH ×4 (06:17→20:54)
[2017-07-20] MEDS: PANTOPRAZOLE 40 MG (PROTONIX) TAB PO SCH (06:17)
--- NOTE | 2017-07-20 07:46 | Diagnostic Imaging Report ---
INDICATION: Pseudomonas bronchitis. Comparison made with prior examination from 07/19/2017. FINDINGS: There's cardiomegaly. There is unchanged elevation of the right hemidiaphragm. Lungs are otherwise clear. There is no pleural effusion or pneumothorax. Left upper extremity PICC line is in satisfactory position. IMPRESSION: Cardiomegaly and unchanged elevation of the right hemidiaphragm. Dictated by: Dictated on workstation # [id number]
[2017-07-20] MEDS: RT-BUDESONIDE NEBS 0.5 MG/2ML (PULMICORT) AMP INH SCH ×2 (08:21→18:07)
--- NOTE | 2017-07-20 08:46 | Progress Note-Hospitalist ---
Subjective HPI/CC On Admission Date Seen by Provider: Jul 20, 2017 Time Seen by Provider: 08:30 Mr. 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 Initially sputum was clear but then it became colored. He increase his prednisone from 20 mg to 40 mg daily and presented to my office on the . There he did have significant wheezing but was maintaining saturations on room air 95-96 percent. He did not wish to be admitted to the hospital at that time so he was discharged on Levaquin. He has a past history of Pseudomonas that was pansensitive cultured from a venous insufficiency ulcer but also required hyperbaric oxygen therapy on his right lower extremity. It has been improving through wound care but at one point was quite large and he still has a significant area of skin breakdown although he does have pink granulation tissue no increase in pain and they have been pleased as of late with wound healing. He called my office the afternoon of the reporting the onset of severe left-sided chest pain worse with breathing worse with cough that actually followed a paroxysm of cough. It was too painful to take deep breaths and he was feeling more short of breath. Sputum culture obtained as an outpatient was growing Pseudomonas on admission but sensitivities were not yet available. He is at high risk for progression to overt respiratory failure and was admitted to the intensive care unit for close monitoring and further therapeutics. Past medical history is most significant for Churg-Nils tenting as pulmonary hemorrhage in 2001. Other than prednisone his only other medication is IVIG. He has a history of disseminated histoplasmosis for which she has been on voriconazole for the past several years continues to have elevated androgen levels and urine and blood. They have been controlled however with chronic suppressive voriconazole therapy. He follows at for his pulmonary and infectious disease issues. 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 He has been on Forteo as of late but I did have concerns over possible cough related rib fracture considering this history. Subjective/Events-last exam Pt reports breathing about the same. Would like to switch diuretics. Would also like to increase to his home dose of hydrocodone. Objective Exam Vital Signs Vital Sign - Last 12Hours 07/17/17 07/17/17 16:45 20:05 Temp 99.8 Pulse 112 Resp 18 B/P (MAP) 192/107 (135) Pulse Ox 97 O2 Delivery High Flow N/C O2 Flow Rate 5.00 FiO2 45 Capillary Refill : Less Than 3 Seconds General Appearance: No Apparent Distress, WD/WN Respiratory: No Respiratory Distress, Wheezing, Other (on BiPAP) Cardiovascular: Regular Rate, Rhythm, No Murmur Gastrointestinal: Normal Bowel Sounds, Non Tender, Soft Extremity: Pedal Edema Neurologic/Psychiatric: Alert, Oriented x3, Normal Mood/Affect Results/Procedures Lab Laboratory Tests 07/20/17 04:45 Assessment/Plan Assessment and Plan Assess & Plan/Chief Complaint Pneumonia Diagnosis/Problems Diagnosis/Problems (1) CAP (community acquired pneumonia) Assessment & Plan: psuedomonas on culture from Dr Cox's office Continue on Cefepime Still needing BiPAP MAT Protocol Pulm consulted, appreciate recs Will resume his home inhalers Qualifiers: Qualified Codes: J18.9 - Pneumonia, unspecified organism (2) 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 Assessment & Plan: Continue on Solumedrol Receives IVIG Follows with [facility] pulm and infectious disease On voriconazole (3) Diabetes mellitus Status: Chronic Assessment & Plan: Steroid induced on Sliding Scale Qualifiers: Qualified Codes: E09.8 - Drug or chemical induced diabetes mellitus with unspecified complications (4) Essential (primary) hypertension Assessment & Plan: Somewhat labile but trending down over the past few days Mostly within goal Continue to monitor (5) Chest wall pain Assessment & Plan: Continue home hydrocodone IV Morphine for breakthrough pain Also on Norflex ROBERTO DELATORRE MD Jul 20, 2017 8:45 am
[2017-07-20] MEDS ORDERED: BUMETANIDE 1 MG (BUMEX) TAB PO SCH (09:00)
[2017-07-20] MEDS: amLODIPine 10 MG (NORVASC) TAB PO SCH (09:32)
[2017-07-20] MEDS: HYDROcodone/APAP 10 MG/325 MG (LORTAB) TAB PO PRN ×3 (09:32→20:34)
[2017-07-20] MEDS: VORICONAZOLE 200 MG TAB (VFEND) NON-FORMULARY PO SCH ×2 (09:32→20:35)
[2017-07-20] MEDS: BUMETANIDE 1 MG (BUMEX) TAB PO SCH (09:32)
[2017-07-20] MEDS: CEFEPIME 2 GM/D5W 50 ML IVPB IV SCH ×4 (09:33→20:35)
[2017-07-20] MEDS: ORPHENADRINE 60 MG/2 ML (NORFLEX) AMP IM SCH ×2 (09:33→20:55)
[2017-07-20] MEDS: guaiFENesin (MUCINEX) 600 MG TAB PO SCH ×2 (09:35→20:34)
[2017-07-20] MEDS: SENNOSIDES 8.6 MG (SENOKOT) TAB PO PRN (10:13)
[2017-07-20] MEDS: meTOprolol 5 MG/5 ML (LOPRESSOR) VIAL IV PRN (16:10)
[2017-07-20] MEDS: LOSARTAN 25 MG (COZAAR) TAB PO SCH (17:05)
[2017-07-20] MEDS: ENOXAPARIN 40 MG/0.4 ML (LOVENOX) SYR SC SCH (18:03)
[2017-07-20] MEDS: DILTIAZEM 240 MG (CARDIZEM CD) CAP PO SCH (20:34)
[2017-07-21] VITALS (27 sets, daily range): BP systolic 105–195; BP diastolic 53–108
[2017-07-21] MEDS: methylPREDNISolone 40 MG/ML (Solu-MEDROL) VIAL IV SCH ×3 (02:20→18:33)
[2017-07-21] MEDS: morphine INJ 4 MG/ML 1 ML (VIAL/SYRINGE) IVP PRN ×2 (02:20→06:27)
[2017-07-21 03:50] LABS: ABG BASE EXCESS 0.1 MMOL/L (-2.5-2.5); ABG OXYGEN SATURATION 98 % (94-100); ABG PCO2 41 MMHG (35-45); ABG PH 7.39 (7.37-7.43); ABG PO2 83 MMHG (79-93); ABG TCO2 25.8 MMOL/L (21.0-31.0); ALLENS TEST YES-POS
[2017-07-21 03:51] LABS: INSPIRED O2 30% BIPAP; PATIENT TEMP 97.7; VENTILATOR NO
[2017-07-21 03:56] LABS: BASOPHILS % (AUTO) 0 % (0-10); EOSINOPHILS % (AUTO) 0 % (0-10); HEMATOCRIT 30 % (40-54); HEMOGLOBIN 9.2 G/DL (13.3-17.7); LYMPHOCYTES # (AUTO) 0.7 X 10^3 (1.0-4.0); LYMPHOCYTES % (AUTO) 5 % (12-44); MEAN CORPUSCULAR HEMOGLOBIN 27 PG (25-34); MEAN CORPUSCULAR HGB CONC 31 G/DL (32-36); MEAN CORPUSCULAR VOLUME 88 FL (80-99); MEAN PLATELET VOLUME 10.2 FL (7.4-10.4); MONOCYTES % (AUTO) 7 % (0-12); NEUTROPHILS % (AUTO) 89 % (42-75); PLATELET COUNT 147 10^3/uL (130-400); RED BLOOD COUNT 3.39 10^6/uL (4.35-5.85); RED CELL DISTRIBUTION WIDTH 15.8 % (10.0-14.5); WHITE BLOOD COUNT 14.6 10^3/uL (4.3-11.0)
[2017-07-21] MEDS: HYDROcodone/APAP 10 MG/325 MG (LORTAB) TAB PO PRN ×2 (04:08→08:32)
[2017-07-21 04:12] LABS: CREATININE SERUM 1.55 MG/DL (0.60-1.30); MAGNESIUM 2.4 MG/DL (1.8-2.4); PHOSPHORUS 3.9 MG/DL (2.3-4.7); POTASSIUM 4.1 MMOL/L (3.6-5.0)
[2017-07-21 04:37] LABS: ANISOCYTOSIS SLIGHT; BAND NEUTROPHILS 2 %; BASOPHILS % (MANUAL) 0 %; EOSINOPHILS % (MANUAL) 0 %; LYMPHOCYTES % (MANUAL) 3 %; METAMYELOCYTES % 1 %; MONOCYTES % (MANUAL) 2 %; NEUTROPHILS % (MANUAL) 92 %; POLYCHROMASIA SLIGHT
[2017-07-21] MEDS: KCL 20 MEQ TAB (K-DUR) PO SCH (05:34)
[2017-07-21] MEDS: POTASSIUM CL 10MEQ/50ML IVPB 50 ML IV SCH (05:34)
[2017-07-21] MEDS: MAGNESIUM 1 GM/100 ML IVPB 100 ML IV SCH (05:34)
--- NOTE | 2017-07-21 05:49 | Pulmonary Progress Note ---
Subjective Time Seen by Provider: 05:55 Subjective/Events-last exam Pt is not doing well anytime he is off BiPAP. Exam Exam Vital Signs Date Time Temp Pulse Resp B/P (MAP) Pulse Ox O2 Delivery O2 Flow Rate FiO2 07/21/17 04:00 NIV Bilevel 30 07/21/17 04:00 97.7 79 15 172/89 (116) 98 NIV Bilevel 30.00 07/21/17 03:00 89 20 152/79 (103) 90 NIV Bilevel 30.00 07/21/17 02:07 96 23 93 30.00 07/21/17 02:00 106 26 179/94 (122) 94 NIV Bilevel 30.00 07/21/17 01:00 81 07/21/17 01:00 81 138/71 (93) 94 Vapotherm 30.00 30.00 07/21/17 00:00 Vapotherm 30.00 30 07/21/17 00:00 98.9 88 28 148/73 (98) 94 Vapotherm 30.00 30.00 07/20/17 23:00 84 23 143/72 (95) 93 Vapotherm 30.00 30.00 07/20/17 22:00 52 15 149/73 (98) 91 Vapotherm 30.00 30.00 07/20/17 21:49 94 Vapotherm 30.00 30 07/20/17 21:00 89 15 155/71 (99) 95 NIV Bilevel 30.00 07/20/17 20:00 NIV Bilevel 30 07/20/17 20:00 99.2 84 18 157/82 (107) 95 NIV Bilevel 30.00 07/20/17 19:00 90 07/20/17 19:00 90 23 159/79 (105) 96 NIV Bilevel 30.00 07/20/17 18:12 76 21 96 30.00 07/20/17 18:07 79 23 96 30.00 07/20/17 18:00 81 22 147/87 (107) 97 NIV Bilevel 30.00 07/20/17 17:00 80 18 148/82 (104) 97 NIV Bilevel 30.00 07/20/17 16:00 99.3 07/20/17 16:00 98.4 109 25 169/89 (115) 98 NIV Bilevel 30.00 07/20/17 16:00 NIV Bilevel 30 07/20/17 15:55 101 23 98 30.00 07/20/17 15:00 93 20 160/88 (112) 96 NIV Bilevel 30.00 07/20/17 14:10 93 18 99 35.00 07/20/17 14:00 98 20 160/90 (113) 100 NIV Bilevel 35.00 07/20/17 13:00 82 15 158/81 (106) 95 NIV Bilevel 35.00 07/20/17 13:00 82 07/20/17 12:00 84 19 160/83 (108) 100 NIV Bilevel 35.00 07/20/17 12:00 NIV Bilevel 35 07/20/17 11:45 98.3 07/20/17 11:00 93 22 169/83 (111) 100 NIV Bilevel 35.00 07/20/17 10:23 95 Vapotherm 30.00 45 07/20/17 10:00 92 28 138/78 (98) 100 NIV Bilevel 35.00 07/20/17 09:00 75 18 154/78 (103) 98 NIV Bilevel 35.00 07/20/17 08:21 86 24 94 35.00 07/20/17 08:00 97.8 NIV Bilevel 35.00 07/20/17 08:00 70 16 151/80 (103) 97 NIV Bilevel 35.00 07/20/17 08:00 NIV Bilevel 35 07/20/17 07:00 89 07/20/17 07:00 89 22 123/57 (79) 95 NIV Bilevel 35.00 07/20/17 06:00 66 33 137/70 (92) 94 NIV Bilevel 35.00 07/20/17 05:58 67 15 95 35.00 I & O 07/21/17 07:00 Intake Total 1790 ml Output Total 1845 ml Balance -55 ml General Appearance: WD/WN, Anxious, Mild Distress HEENT: PERRL/EOMI, Normal ENT Inspection Neck: Full Range of Motion, Normal Inspection, Non Tender, Supple, Carotid Bruit Respiratory: No Respiratory Distress, Wheezing, Other (on BiPAP) Cardiovascular: Regular Rate, Rhythm, No Murmur Capillary Refill: Less Than 3 Seconds Gastrointestinal: normal bowel sounds, soft, no organomegaly, no pulsatile mass Extremity: Pedal Edema Neurologic/Psychiatric: Alert, Oriented x3, Normal Mood/Affect Skin: Normal Color, Warm/Dry Lymphatic: No Adenopathy Results Lab Laboratory Tests 07/20/17 04:45 07/21/17 03:43 Assessment/Plan Assessment/Plan -Acute respiratory failure -BiPAP PRN -- Pt does not do well when he is off BiPAP. When off BiPAP he is on Vapotherm. -SVNs --Change SVNs to Q2 -Oxygen -Check BNP -Solumedrol -Check CT of chest without contrast Anxiety -Start Risperdal 0.5mb BID -hx Churg Kunal -Pt follows with [facility] pulm/infectious disease Chronic elevation of right diaphragm Anemia -monitor pneumonia with Pseudomonus -Cefepime Immunosuppression hx Debility -consult PT/OT -hx of stable BETHANY nodule per CT scan 233 Clinical Quality Measures DVT/VTE Risk/Contraindication: Risk Factor Score Per Nursin RFS Level Per Nursing on Admit: 3=High MEDINA VILLEGAS DO Jul 21, 2017 05:49
[2017-07-21] MEDS: inSUlin (REGULAR) HUMAN 1 UNIT/0.01 ML (CHARGE PER UNIT) SC SCH ×4 (05:57→22:56)
[2017-07-21] MEDS: PANTOPRAZOLE 40 MG (PROTONIX) TAB PO SCH (06:03)
[2017-07-21] MEDS: RT-BUDESONIDE NEBS 0.5 MG/2ML (PULMICORT) AMP INH SCH ×2 (06:48→18:21)
[2017-07-21] MEDS: RT-ALBUTEROL/IPRATROPIUM 3 ML (DUONEB) VIAL IH SCH ×9 (07:54→23:48)
[2017-07-21] MEDS ORDERED: UMECLIDINIUM BROMIDE (INCRUSE ELLIPTA) 7'S IH SCH (08:00)
[2017-07-21] MEDS: CEFEPIME 2 GM/D5W 50 ML IVPB IV SCH ×4 (08:31→22:55)
[2017-07-21] MEDS: SENNOSIDES 8.6 MG (SENOKOT) TAB PO PRN (08:32)
[2017-07-21] MEDS: guaiFENesin (MUCINEX) 600 MG TAB PO SCH ×2 (08:32→22:40)
[2017-07-21] MEDS: risperiDONE 0.25 MG (RisperDAL) TAB PO SCH ×2 (08:32→22:40)
[2017-07-21] MEDS: LOSARTAN 25 MG (COZAAR) TAB PO SCH (08:32)
[2017-07-21] MEDS: ORPHENADRINE 60 MG/2 ML (NORFLEX) AMP IM SCH (08:34)
[2017-07-21] MEDS: VORICONAZOLE 200 MG TAB (VFEND) NON-FORMULARY PO SCH ×2 (08:34→20:39)
--- NOTE | 2017-07-21 08:49 | Progress Note-Hospitalist ---
Subjective HPI/CC On Admission Time Seen by Provider: 08:15 Mr. 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 Initially sputum was clear but then it became colored. He increase his prednisone from 20 mg to 40 mg daily and presented to my office on the . There he did have significant wheezing but was maintaining saturations on room air 95-96 percent. He did not wish to be admitted to the hospital at that time so he was discharged on Levaquin. He has a past history of Pseudomonas that was pansensitive cultured from a venous insufficiency ulcer but also required hyperbaric oxygen therapy on his right lower extremity. It has been improving through wound care but at one point was quite large and he still has a significant area of skin breakdown although he does have pink granulation tissue no increase in pain and they have been pleased as of late with wound healing. He called my office the afternoon of the reporting the onset of severe left-sided chest pain worse with breathing worse with cough that actually followed a paroxysm of cough. It was too painful to take deep breaths and he was feeling more short of breath. Sputum culture obtained as an outpatient was growing Pseudomonas on admission but sensitivities were not yet available. He is at high risk for progression to overt respiratory failure and was admitted to the intensive care unit for close monitoring and further therapeutics. Past medical history is most significant for Churg-Nils tenting as pulmonary hemorrhage in 2001. Other than prednisone his only other medication is IVIG. He has a history of disseminated histoplasmosis for which she has been on voriconazole for the past several years continues to have elevated androgen levels and urine and blood. They have been controlled however with chronic suppressive voriconazole therapy. He follows at for his pulmonary and infectious disease issues. 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 He has been on Forteo as of late but I did have concerns over possible cough related rib fracture considering this history. Subjective/Events-last exam Lanre has not slept much the last 3 days and still short of breath with any exertion. He denies chest pain and his cough is been nonproductive. He does have some intermittent knifelike back pain that comes and goes suggesting muscle spasm type etiology. We attempted putting him back on morphine DOGMAN/WOMAN with continuous drip to help him relax but was unsuccessful. A discussion about mechanical ventilation ensued. I was contacted by staff later in the morning stated that he wished replaced on the ventilator and attempt to get some rest. Objective Exam Vital Signs Vital Sign - Last 12Hours 07/17/17 07/17/17 16:45 20:05 Temp 99.8 Pulse 112 Resp 18 B/P (MAP) 192/107 (135) Pulse Ox 97 O2 Delivery High Flow N/C O2 Flow Rate 5.00 FiO2 45 Capillary Refill : Less Than 3 Seconds General Appearance: Moderate Distress, Other (Wishing avoid) Respiratory: Accessory Muscle Use, Respiratory Distress, Other (Diffuse inspiratory next to her wheezing throughout. There is less rales and rhonchi noted. Wheezing predominantly expiratory) Cardiovascular: Regular Rate, Rhythm, No Edema, No Gallop, No JVD, No Murmur, Normal Peripheral Pulses Gastrointestinal: Normal Bowel Sounds, No Organomegaly, No Pulsatile Mass, Non Tender, Soft Extremity: Other (2+ bilateral edema noted. For extremities affected. Right leg ulcer essentially completely healed) Neurologic/Psychiatric: Alert (2+ bilateral edema noted. For extremities affected. Right leg ulcer essentially completely healed), Other (Anxious) Skin: Pallor Results/Procedures Lab Laboratory Tests 07/22/17 04:45 Assessment/Plan Assessment and Plan Assess & Plan/Chief Complaint 1. Pseudomonas bronchitis with acute exacerbation of underlying lung disease. Pseudomonas on previous outpatient culture from Friday sensitive to cefepime will continue. Patient developing respiratory fatigue anesthesia consulted for intubation. 2.Churg-Kunal/EGPA acute flare doubtful continue his monthly IVIG and considering number 1 higher dose Solu-Medrol taper Solu-Medrol when reactive airways show signs of improvement. 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 4. Left chest wall pain favor muscle spasm as it is a little more diffuse than one would expect for occult rib fracture as well as minimal improvement on morphine will add IV Norflex patient warned about sedation continue O2 sat monitoring continuous. 5. Slowly increasing be when and creatinine compatible with relative intravascular volume depletion. No IV fluid changes made in attempt to keep the patient on the dry side to prevent pulmonary edema but may need to increase fluids of this trend continues. Complex medical management. ERIC ADAM MD Jul 21, 2017 08:49
[2017-07-21] MEDS: amLODIPine 10 MG (NORVASC) TAB PO SCH (09:00)
[2017-07-21] MEDS ORDERED: NS IV 500 ML 500 ML ONE (09:15)
[2017-07-21] MEDS ORDERED: morphine PCA 30 MG/30 ML VIAL IV PRN (09:15)
--- NOTE | 2017-07-21 09:16 | Diagnostic Imaging Report ---
INDICATION: Dyspnea. Time of exam: 5:15 AM Correlation is made with prior study one day earlier. The heart size is stable. Right hemidiaphragm is chronically elevated. The left upper extremity PICC line has tip overlying the SVC. Lungs are clear. The pulmonary vascularity is normal. No infiltrate, effusion or pneumothorax is detected. IMPRESSION: Stable chest. No acute feature is detected. Dictated by: Dictated on workstation # [id number]
[2017-07-21] MEDS ORDERED: PROPOFOL DRIP (ICU) 100 ML IV ONE ×2 (12:31→17:10)
[2017-07-21] MEDS ORDERED: NS IV 1000 ML 1,000 ML ONE ×2 (12:35→12:55)
--- NOTE | 2017-07-21 12:45 | Physical Therapy Progress Note ---
Therapy Progress Note Patient is currently being intubated and place on ventilator. PT will continue to monitor patient's medical status and will request further orders to initiate therapy. LYLA BLOUNT PT Jul 21, 2017 12:45
[2017-07-21] MEDS ORDERED: ETOMIDATE IV SOLN 20 MG/10 ML VIAL IV ONE (13:00)
[2017-07-21] MEDS ORDERED: MIDAZOLAM 5 MG/5 ML (VERSED) VIAL INJ ONE (13:00)
[2017-07-21] MEDS ORDERED: SUCCINYLCHOLINE INJ 100 MG/5 ML SYR INJ ONE (13:00)
[2017-07-21] MEDS: meTOprolol 5 MG/5 ML (LOPRESSOR) VIAL IV PRN (13:47)
[2017-07-21] MEDS: BUMETANIDE 1 MG (BUMEX) TAB PO SCH (13:54)
--- NOTE | 2017-07-21 14:00 | Progress Note-Standard ---
Standard Progress Note Progress Notes/Assess & Plan Date Seen by Provider: Jul 21, 2017 Time Seen by Provider: 13:15 Progress/Assessment & Plan Anesthesia Note Called to ICU for intubation and arterial line placement. +/- intubation and arterial line discussed with patient and consent signed. Versed 5 mg IV in divided doses, etomidate 20 mg IV and succinylcholine 100 mg IV given for intubation with cricoid pressure while etomidate was given. Singh used for Grade I view and 8.0 cuffed ETT passed easily through vocal cords. No dental damage or aspiration noted. ETT secured at 23 cm at teeth with BS = B/L and + CO2 color change. Left radial arterial line placed after sterile prep. Secured with sterile tegaderm and good waveform. Pt tolerated the procedures well and propofol sedation started per Dr Fernandez's order. Will be available if needed. DIEGO BARRAZA DO Jul 21, 2017 13:59
--- NOTE | 2017-07-21 14:04 | Diagnostic Imaging Report ---
INDICATION: Post intubation. TIME OF EXAM: 1:35 PM. COMPARISON: Prior study from earlier the same day. FINDINGS: The endotracheal tube has been placed with its tip in good position above the cortez. The left upper extremity PICC line remains in place. The right hemidiaphragm remains chronically elevated with subsegmental atelectasis in the right base. No pneumothorax is seen. IMPRESSION: Satisfactory endotracheal tube placement. Dictated by: Dictated on workstation # [id number]
--- NOTE | 2017-07-21 14:06 | Occ Therapy Progress Note ---
Therapy Progress Note 1345 Pt was getting intubated. Will follow. JERAMIE TROTTER OT Jul 21, 2017 14:06
[2017-07-21 15:04] LABS: ABG BASE EXCESS -0.5 MMOL/L (-2.5-2.5); ABG OXYGEN SATURATION 95 % (94-100); ABG PCO2 48 MMHG (35-45); ABG PH 7.33 (7.37-7.43); ABG PO2 70 MMHG (79-93); ABG TCO2 26.4 MMOL/L (21.0-31.0)
[2017-07-21 15:05] LABS: ALLENS TEST POSITIVE; INSPIRED O2 18 L 60%; PATIENT TEMP 97.2; VENTILATOR YES
--- NOTE | 2017-07-21 16:54 | Wound Care Progress Note ---
Subjective Subjective Subjective/Events-last exam 62 year old male with complex ulcers of R calf, improved after Apligraf #5. Xeroform dressings ordered. Objective Exam Last Set of Vital Signs Vital Signs Date Time Temp Pulse Resp B/P (MAP) Pulse Ox O2 Delivery O2 Flow Rate FiO2 07/21/17 16:45 62 18 95 60 07/21/17 14:00 133/75 (94) Mechanical Ventilator 60.00 18.00 07/21/17 13:58 98.3 Capillary Refill : Less Than 3 Seconds I&O Intake and Output 07/21/17 00:00 Intake Total 3140 ml Output Total 2070 ml Balance 1070 ml Intake Oral 1590 ml IV Total 1550 ml Output Urine Total 2070 ml Results Lab Laboratory Tests 07/20/17 20:42: Glucometer 331H 07/21/17 03:43: White Blood Count 14.6H, Red Blood Count 3.39L, Hemoglobin 9.2L, Hematocrit 30L , Mean Corpuscular Volume 88, Mean Corpuscular Hemoglobin 27, Mean Corpuscular Hemoglobin Concent 31L, Red Cell Distribution Width 15.8H, Platelet Count 147, Mean Platelet Volume 10.2, Neutrophils (%) (Auto) 89H, Lymphocytes (%) (Auto) 5L , Monocytes (%) (Auto) 7, Eosinophils (%) (Auto) 0, Basophils (%) (Auto) 0, Neutrophils # (Auto) 13.0H, Lymphocytes # (Auto) 0.7L, Monocytes # (Auto) 1.0, Eosinophils # (Auto) 0.0, Basophils # (Auto) 0.0, Neutrophils % (Manual) 92, Lymphocytes % (Manual) 3, Monocytes % (Manual) 2, Eosinophils % (Manual) 0, Basophils % (Manual) 0, Metamyelocytes % 1, Band Neutrophils 2, Polychromasia SLIGHT, Anisocytosis SLIGHT, Macrocytosis SLIGHT, Sodium Level 139, Potassium Level 4.1, Chloride Level 101, Carbon Dioxide Level 22, Anion Gap 16H, Blood Urea Nitrogen 72H, Creatinine 1.55H, Estimat Glomerular Filtration Rate 46, BUN/ Creatinine Ratio 46, Glucose Level 181H, Calcium Level 9.0, Phosphorus Level 3.9 , Magnesium Level 2.4, B-Type Natriuretic Peptide 152.5H 07/21/17 03:45: Blood Gas Puncture Site R RAD, Blood Gas Patient Temperature 97.7, Arterial Blood pH 7.39, Arterial Blood Partial Pressure CO2 41, Arterial Blood Partial Pressure O2 83, Arterial Blood HCO3 25, Arterial Blood Total CO2 25.8, Arterial Blood Oxygen Saturation 98, Arterial Blood Base Excess 0.1, Jamil Test YES-POS, Blood Gas Ventilator Setting NO, Blood Gas Inspired Oxygen 30% BIPAP 07/21/17 08:41: Glucometer 256H 07/21/17 14:55: Blood Gas Puncture Site LEFT RADIAL, Blood Gas Patient Temperature 97.2, Arterial Blood pH 7.33*L, Arterial Blood Partial Pressure CO2 48H, Arterial Blood Partial Pressure O2 70L, Arterial Blood HCO3 25, Arterial Blood Total CO2 26.4, Arterial Blood Oxygen Saturation 95, Arterial Blood Base Excess -0.5, Jamil Test POSITIVE, Blood Gas Ventilator Setting YES, Blood Gas Inspired Oxygen 18 L 60% Microbiology 07/17/17 MRSA Screen - Final, Complete MRSA not isolated MIKAYLA LOPEZ MD Jul 21, 2017 16:54
[2017-07-21] MEDS ORDERED: fentaNYL INJECTION 1,250 MCG in NS (IVPB) 225 ML IV SCH (17:30)
[2017-07-21] MEDS: ENOXAPARIN 40 MG/0.4 ML (LOVENOX) SYR SC SCH (18:32)
[2017-07-21] MEDS: PROPOFOL DRIP (ICU) 100 ML IV SCH ×2 (18:36→22:57)
[2017-07-21] MEDS: DILTIAZEM 240 MG (CARDIZEM CD) CAP PO SCH (22:39)
[2017-07-22] VITALS (33 sets, daily range): BP systolic 123–185; BP diastolic 46–81
[2017-07-22] MEDS: hydrALAZINE (APESOLINE) 20 MG/ML VIAL IV PRN (01:36)
[2017-07-22] MEDS: methylPREDNISolone 40 MG/ML (Solu-MEDROL) VIAL IV SCH ×3 (01:42→17:29)
[2017-07-22] MEDS: meTOprolol 5 MG/5 ML (LOPRESSOR) VIAL IV PRN (02:01)
[2017-07-22] MEDS: RT-ALBUTEROL/IPRATROPIUM 3 ML (DUONEB) VIAL IH SCH ×11 (02:08→22:12)
[2017-07-22] MEDS: PROPOFOL DRIP (ICU) 100 ML IV SCH ×6 (02:35→21:03)
[2017-07-22 04:51] LABS: ABG BASE EXCESS -1.8 MMOL/L (-2.5-2.5); ABG OXYGEN SATURATION 95 % (94-100); ABG PCO2 51 MMHG (35-45); ABG PO2 74 MMHG (79-93); ABG TCO2 25.6 MMOL/L (21.0-31.0)
[2017-07-22 04:54] LABS: ABG PH 7.29 (7.37-7.43)
[2017-07-22 04:55] LABS: ALLENS TEST ART LINE; BASOPHILS % (AUTO) 0 % (0-10); EOSINOPHILS % (AUTO) 0 % (0-10); HEMATOCRIT 29 % (40-54); INSPIRED O2 60%; LYMPHOCYTES # (AUTO) 0.4 X 10^3 (1.0-4.0); LYMPHOCYTES % (AUTO) 3 % (12-44); MEAN CORPUSCULAR HEMOGLOBIN 28 PG (25-34); MEAN CORPUSCULAR HGB CONC 32 G/DL (32-36); MEAN CORPUSCULAR VOLUME 89 FL (80-99); MEAN PLATELET VOLUME 10.2 FL (7.4-10.4); MONOCYTES # (AUTO) 0.9 X 10^3 (0.0-1.0); MONOCYTES % (AUTO) 7 % (0-12); NEUTROPHILS # (AUTO) 11.9 X 10^3 (1.8-7.8); NEUTROPHILS % (AUTO) 91 % (42-75); PATIENT TEMP 97; PLATELET COUNT 129 10^3/uL (130-400); RED BLOOD COUNT 3.21 10^6/uL (4.35-5.85); RED CELL DISTRIBUTION WIDTH 15.7 % (10.0-14.5); VENTILATOR YES; WHITE BLOOD COUNT 13.2 10^3/uL (4.3-11.0)
[2017-07-22 05:25] LABS: CALCIUM 9.2 MG/DL (8.5-10.1); CREATININE SERUM 1.63 MG/DL (0.60-1.30); MAGNESIUM 2.7 MG/DL (1.8-2.4); PHOSPHORUS 4.4 MG/DL (2.3-4.7); POTASSIUM 3.9 MMOL/L (3.6-5.0)
[2017-07-22] MEDS: KCL 20 MEQ TAB (K-DUR) PO SCH (05:42)
[2017-07-22] MEDS: POTASSIUM CL 10MEQ/50ML IVPB 50 ML IV SCH (05:42)
[2017-07-22] MEDS: MAGNESIUM 1 GM/100 ML IVPB 100 ML IV SCH (05:42)
[2017-07-22] MEDS: inSUlin (REGULAR) HUMAN 1 UNIT/0.01 ML (CHARGE PER UNIT) SC SCH ×3 (05:47→17:28)
[2017-07-22] MEDS ORDERED: DEXMEDETOMIDINE INJECTION 200 MCG in NS (IVPB) 50 ML IV SCH (06:00)
--- NOTE | 2017-07-22 06:07 | Pulmonary Progress Note ---
Subjective Time Seen by Provider: 06:08 Subjective/Events-last exam Pt had worsening SOB and had to be intubated last night. Exam Exam Vital Signs Date Time Temp Pulse Resp B/P (MAP) Pulse Ox O2 Delivery O2 Flow Rate FiO2 07/22/17 04:39 80 18 93 60 07/22/17 04:35 80 07/22/17 04:24 97.0 Mechanical Ventilator 60.00 07/22/17 04:00 71 17 163/55 (91) 97 Mechanical Ventilator 60.00 07/22/17 04:00 Mechanical Ventilator 60 07/22/17 03:00 72 18 143/50 (81) 97 Mechanical Ventilator 60.00 07/22/17 02:35 75 154/54 07/22/17 02:09 101 26 93 60 07/22/17 02:00 81 26 166/62 (96) 93 Mechanical Ventilator 60.00 07/22/17 01:00 79 15 174/55 (94) 96 Mechanical Ventilator 60.00 07/22/17 01:00 79 07/22/17 00:00 76 15 141/50 (80) 95 Mechanical Ventilator 60.00 07/22/17 00:00 97.2 07/22/17 00:00 Mechanical Ventilator 60 07/21/17 23:48 76 18 96 60 07/21/17 23:00 84 17 159/58 (91) 96 Mechanical Ventilator 60.00 07/21/17 22:57 84 147/57 Mechanical Ventilator 07/21/17 22:00 65 17 139/59 (85) 96 Mechanical Ventilator 60.00 07/21/17 21:50 66 18 96 60 07/21/17 21:00 66 17 141/60 (87) 96 Mechanical Ventilator 60.00 07/21/17 20:00 Mechanical Ventilator 60 07/21/17 20:00 66 18 145/56 (85) 95 Mechanical Ventilator 60.00 18.00 07/21/17 19:59 63 18 95 60 07/21/17 19:00 72 07/21/17 19:00 97.6 67 18 133/60 (84) 95 Mechanical Ventilator 18.00 07/21/17 18:36 97.0 71 157/61 07/21/17 18:22 68 27 97 60 07/21/17 18:00 68 17 147/54 (85) 97 Mechanical Ventilator 60.00 18.00 07/21/17 17:00 63 17 141/63 (89) 96 Mechanical Ventilator 60.00 18.00 07/21/17 16:45 62 18 95 60 07/21/17 16:00 Mechanical Ventilator 60 07/21/17 16:00 61 17 125/59 (81) 95 Mechanical Ventilator 60.00 18.00 07/21/17 15:00 61 17 105/53 (70) 94 Mechanical Ventilator 60.00 18.00 07/21/17 14:00 71 21 133/75 (94) 93 Mechanical Ventilator 60.00 18.00 07/21/17 13:58 98.3 70 20 136/65 93 Mechanical Ventilator 60.00 07/21/17 13:24 73 18 92 60 07/21/17 13:00 96 07/21/17 13:00 98 10 192/108 (136) 96 Mechanical Ventilator 07/21/17 12:30 93 Vapotherm 30.00 50 07/21/17 12:00 NIV Bilevel 30 07/21/17 12:00 90 14 195/104 (134) 92 NIV Bilevel 30.00 07/21/17 11:00 92 13 171/87 (115) 93 NIV Bilevel 30.00 07/21/17 10:15 92 Vapotherm 30.00 50 07/21/17 10:00 NIV Bilevel 30.00 07/21/17 09:27 30 07/21/17 09:00 NIV Bilevel 30.00 07/21/17 08:21 92 Vapotherm 30.00 50 07/21/17 08:00 102 26 164/91 (115) 96 NIV Bilevel 30.00 07/21/17 08:00 NIV Bilevel 30 07/21/17 07:51 98 21 89 30.00 07/21/17 07:00 87 25 150/81 (104) 94 NIV Bilevel 30.00 07/21/17 07:00 87 07/21/17 06:40 92 26 98 30.00 I & O 07/22/17 07:00 Intake Total 450 ml Output Total 1740 ml Balance -1290 ml General Appearance: WD/WN, Anxious, Mild Distress HEENT: PERRL/EOMI, Normal ENT Inspection Neck: Full Range of Motion, Normal Inspection, Non Tender, Supple, Carotid Bruit Respiratory: No Respiratory Distress, Wheezing, Other (on BiPAP) Cardiovascular: Regular Rate, Rhythm, No Murmur Capillary Refill: Less Than 3 Seconds Gastrointestinal: normal bowel sounds, soft, no organomegaly, no pulsatile mass Extremity: Pedal Edema Neurologic/Psychiatric: Alert, Oriented x3, Normal Mood/Affect Skin: Normal Color, Warm/Dry Lymphatic: No Adenopathy Results Lab Laboratory Tests 07/21/17 03:43 07/22/17 04:45 Assessment/Plan Assessment/Plan -Acute respiratory failure -BiPAP PRN -- Pt does not do well when he is off BiPAP. When off BiPAP he is on Vapotherm. -SVNs --Change SVNs to Q2 -Check BNP -Solumedrol -Check CT of chest without contrast Anxiety -Start Risperdal 0.5mb BID -hx Churg Kunal -Pt follows with [facility]/infectious disease Chronic elevation of right diaphragm Anemia -monitor pneumonia with Pseudomonus -Cefepime Immunosuppression hx Debility -consult PT/OT -hx of stable BETHANY nodule per CT scan 233 Clinical Quality Measures DVT/VTE Risk/Contraindication: Risk Factor Score Per Nursin RFS Level Per Nursing on Admit: 3=High MEDINA VILLEGAS DO Jul 22, 2017 06:06
[2017-07-22] MEDS: RT-BUDESONIDE NEBS 0.5 MG/2ML (PULMICORT) AMP INH SCH ×3 (06:17→22:15)
[2017-07-22] MEDS: PANTOPRAZOLE 40 MG (PROTONIX) TAB PO SCH (06:59)
[2017-07-22] MEDS: PANTOPRAZOLE 40 MG/10 ML (PROTONIX) VIAL IV SCH (06:59)
--- NOTE | 2017-07-22 08:17 | Diagnostic Imaging Report ---
INDICATION: Pneumonia and dyspnea. TIME OF EXAM: 4:04 AM Correlation is made with prior study from one day earlier. FINDINGS: The endotracheal tube, NG tube and left upper extremity PICC line remain in place. There appears to be some increasing consolidation in the right base. Right hemidiaphragm is elevated. There is a small right effusion. Left lung appears to be fairly clear. No pneumothorax is seen. IMPRESSION: There has been some increase right basilar atelectasis/infiltrate and right pleural fluid when compared with examination one day earlier. Dictated by: Dictated on workstation # [id number]
[2017-07-22] MEDS: CEFEPIME 2 GM/D5W 50 ML IVPB IV SCH ×4 (08:28→21:04)
[2017-07-22] MEDS: fentaNYL INJECTION 1,250 MCG in NS (IVPB) 250 ML IV SCH (08:51)
[2017-07-22] MEDS: DEXMEDETOMIDINE IV SCH ×4 (09:00→19:40)
[2017-07-22] MEDS: NS IV SCH ×4 (09:00→19:40)
--- NOTE | 2017-07-22 09:15 | Diagnostic Imaging Report ---
PROCEDURE: CT chest without contrast. TECHNIQUE: Multiple contiguous axial images were obtained through the chest without the use of intravenous contrast. INDICATION: Pneumonia, respiratory failure. Patient on ventilator support. COMPARISON: Prior CT chest from 08/05/2016. FINDINGS: The patient is intubated. The endotracheal tube has its tip above the cortez. A nasogastric tube passes into the stomach. There is a left upper extremity PICC line with the tip overlying the SVC. No definite axillary lymphadenopathy is detected. The hilar and mediastinal evaluation is limited without intravenous contrast but no gross abnormality is seen. No pericardial or pleural fluid is identified. There is a moderate amount of motion artifact on the exam limiting the sensitivity. The previously noted small nodule in the left upper lobe is not as well appreciated on today's study; however, this could be owing to motion. There is parenchymal consolidation with air bronchograms in the right lower lobe. There is also some consolidation in the left lower lobe posteriorly but to a lesser degree. Minimal atelectasis in the right middle lobe is seen. The right hemidiaphragm is chronically elevated. The upper abdomen does show a lesion arising from the anterior aspect of the upper pole of the right kidney which is not entirely included on this exam; however, it does appear to be increased in size measuring 2.4 cm compared with 1.5 cm on the prior exam. The density measurements continue to be fairly low and this may represent a cyst but is not well characterized on this exam. IMPRESSION: 1. Limited study due to motion artifact. There is chronic elevation of the right hemidiaphragm. There are areas of bibasilar consolidation, right greater, suggestive of pneumonia. No pericardial or pleural fluid is detected. 2. Increase in size of the upper pole right renal mass when compared with the prior CT from 08/05/2016 but incompletely characterized on this study. A renal ultrasound may be useful to evaluate for cystic or solid nature of the lesion. Dictated by: Dictated on workstation # [id number]
[2017-07-22] MEDS: LOSARTAN 25 MG (COZAAR) TAB PO SCH (09:25)
[2017-07-22] MEDS: VORICONAZOLE 200 MG TAB (VFEND) NON-FORMULARY PO SCH ×2 (09:25→19:41)
[2017-07-22] MEDS: BUMETANIDE 1 MG (BUMEX) TAB PO SCH (09:25)
[2017-07-22] MEDS: guaiFENesin (MUCINEX) 600 MG TAB PO SCH ×2 (10:24→21:04)
[2017-07-22] MEDS: risperiDONE 0.25 MG (RisperDAL) TAB PO SCH ×2 (10:25→21:05)
--- NOTE | 2017-07-22 10:25 | Progress Note-Hospitalist ---
Subjective HPI/CC On Admission Date Seen by Provider: Jul 22, 2017 Time Seen by Provider: 09:30 Mr. 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 Initially sputum was clear but then it became colored. He increase his prednisone from 20 mg to 40 mg daily and presented to my office on the . There he did have significant wheezing but was maintaining saturations on room air 95-96 percent. He did not wish to be admitted to the hospital at that time so he was discharged on Levaquin. He has a past history of Pseudomonas that was pansensitive cultured from a venous insufficiency ulcer but also required hyperbaric oxygen therapy on his right lower extremity. It has been improving through wound care but at one point was quite large and he still has a significant area of skin breakdown although he does have pink granulation tissue no increase in pain and they have been pleased as of late with wound healing. He called my office the afternoon of the reporting the onset of severe left-sided chest pain worse with breathing worse with cough that actually followed a paroxysm of cough. It was too painful to take deep breaths and he was feeling more short of breath. Sputum culture obtained as an outpatient was growing Pseudomonas on admission but sensitivities were not yet available. He is at high risk for progression to overt respiratory failure and was admitted to the intensive care unit for close monitoring and further therapeutics. Past medical history is most significant for Churg-Nils tenting as pulmonary hemorrhage in 2001. Other than prednisone his only other medication is IVIG. He has a history of disseminated histoplasmosis for which she has been on voriconazole for the past several years continues to have elevated androgen levels and urine and blood. They have been controlled however with chronic suppressive voriconazole therapy. He follows at for his pulmonary and infectious disease issues. 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 He has been on Forteo as of late but I did have concerns over possible cough related rib fracture considering this history. Subjective/Events-last exam Lanre is sedated on mechanical ventilator. Even on high-dose taper van he was having agitation and fighting the ventilator. Precedex was added shortly before my arrival and he is sleeping soundly. Heart rate is down in the 70s in sinus rhythm and blood pressure is also down in the 120/60 range. Nursing staff report he's had 180 mL of urine output in the last 4 hours. Objective Exam Vital Signs Vital Sign - Last 12Hours 07/17/17 07/17/17 16:45 20:05 Temp 99.8 Pulse 112 Resp 18 B/P (MAP) 192/107 (135) Pulse Ox 97 O2 Delivery High Flow N/C O2 Flow Rate 5.00 FiO2 45 Capillary Refill : Less Than 3 Seconds General Appearance: No Apparent Distress, Chronically ill, Other (Cushingoid appearance) Respiratory: Other (On mechanical ventilation chest is relatively clear anteriorly. Decreased breath sounds noted in right base. Fine rales in the left base) Cardiovascular: Regular Rate, Rhythm, No Edema, No Gallop, No JVD, No Murmur, Normal Peripheral Pulses Gastrointestinal: Normal Bowel Sounds, No Organomegaly, No Pulsatile Mass, Non Tender, Soft Extremity: Other (3+ edema involving all extremities strongly's are warm) Skin: Pallor Results/Procedures Lab Laboratory Tests 07/22/17 04:45 Assessment/Plan Assessment and Plan Assess & Plan/Chief Complaint 1. Pseudomonas bronchitis with acute exacerbation of underlying lung disease. Pseudomonas on previous outpatient culture from Friday sensitive to cefepime will continue. Patient developing respiratory failure necessitating mechanical ventilation. With the addition of Precedex he is finally comfortable and sleeping we'll be weaning Diprovan. I suspect a viral component with likely bronchiolitis aggravating improvement. Discussed if longer-term ventilation required he would likely be transferred to [place]. If not and we are able to extubate here he will probably require a stay on our acute rehabilitation facility as I expect significant ICU-related weakness. 2.Churg-Kunal/EGPA acute flare doubtful continue his monthly IVIG and considering number 1 higher dose Solu-Medrol taper Solu-Medrol when reactive airways show signs of improvement. 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 4. Left chest wall pain favor muscle spasm as it is a little more diffuse than one would expect for occult rib fracture as well as minimal improvement on morphine will add IV Norflex patient warned about sedation continue O2 sat monitoring continuous. 5. Slowly increasing BUN and creatinine compatible with relative intravascular volume depletion. No IV fluid changes made in attempt to keep the patient on the dry side to prevent pulmonary edema but may need to increase fluids of this trend continues. Complex medical management. ERIC ADAM MD Jul 22, 2017 10:25
--- NOTE | 2017-07-22 11:01 | Physical Therapy Progress Note ---
Therapy Progress Note Patient currently on the vent. PT will continue to monitor patient's status and will evaluate as patient improve medically. LYLA BLOUNT PT Jul 22, 2017 11:01
--- NOTE | 2017-07-22 11:23 | Diagnostic Imaging Report ---
INDICATION: Lower extremity edema. Grayscale, color-flow and duplex Doppler evaluation was performed of bilateral lower extremity deep venous systems. FINDINGS: There is no evidence of right or left lower extremity DVT. Both lower extremity deep venous systems showed normal compressibility with normal response to augmentation and Valsalva. No fluid collection or mass is detected. IMPRESSION: No evidence of right or left lower extremity DVT. Dictated by: Dictated on workstation # [id number]
--- NOTE | 2017-07-22 11:50 | Diagnostic Imaging Report ---
INDICATION: Right arm redness and edema, unresponsive patient. TECHNIQUE: Color and grayscale sonographic images with duplex Doppler evaluation of the upper extremity venous system. CORRELATION STUDY: None FINDINGS: There is no intraluminal filling defect within the visualized portion of the internal jugular, subclavian, axillary, brachial and/or basilic veins to suggest thrombus formation. Where applicable, these vessels demonstrate normal response to compression and augmentation. There is no significant soft tissue fluid collection. IMPRESSION: 1. Negative right upper extremity venous duplex Doppler evaluation. Dictated by: Dictated on workstation # [id number]
--- NOTE | 2017-07-22 13:09 | Occ Therapy Progress Note ---
Therapy Progress Note 1305 Pt still on vent and sedated. Will follow. JERAMIE TROTTER OT Jul 22, 2017 13:09
[2017-07-22] MEDS: ENOXAPARIN 40 MG/0.4 ML (LOVENOX) SYR SC SCH (17:31)
[2017-07-22] MEDS: SENNOSIDES 8.6 MG (SENOKOT) TAB PO PRN (21:04)
[2017-07-22] MEDS: DILTIAZEM 240 MG (CARDIZEM CD) CAP PO SCH (21:06)
[2017-07-23] VITALS (36 sets, daily range): BP systolic 109–183; BP diastolic 54–77
[2017-07-23] MEDS: RT-ALBUTEROL/IPRATROPIUM 3 ML (DUONEB) VIAL IH SCH ×11 (00:34→21:58)
[2017-07-23] MEDS: inSUlin (REGULAR) HUMAN 1 UNIT/0.01 ML (CHARGE PER UNIT) SC SCH ×4 (00:42→18:41)
[2017-07-23] MEDS: fentaNYL INJECTION 1,250 MCG in NS (IVPB) 250 ML IV SCH ×2 (01:40→16:54)
[2017-07-23] MEDS: methylPREDNISolone 40 MG/ML (Solu-MEDROL) VIAL IV SCH ×4 (02:59→18:41)
[2017-07-23] MEDS: PROPOFOL DRIP (ICU) 100 ML IV SCH ×2 (03:00→20:13)
[2017-07-23 04:32] LABS: BASOPHILS % (AUTO) 0 % (0-10); EOSINOPHILS % (AUTO) 0 % (0-10); HEMATOCRIT 28 % (40-54); HEMOGLOBIN 8.7 G/DL (13.3-17.7); LYMPHOCYTES # (AUTO) 0.3 X 10^3 (1.0-4.0); LYMPHOCYTES % (AUTO) 3 % (12-44); MEAN CORPUSCULAR HEMOGLOBIN 28 PG (25-34); MEAN CORPUSCULAR HGB CONC 32 G/DL (32-36); MEAN CORPUSCULAR VOLUME 87 FL (80-99); MEAN PLATELET VOLUME 10.1 FL (7.4-10.4); MONOCYTES # (AUTO) 0.8 X 10^3 (0.0-1.0); MONOCYTES % (AUTO) 7 % (0-12); NEUTROPHILS # (AUTO) 10.3 X 10^3 (1.8-7.8); NEUTROPHILS % (AUTO) 91 % (42-75); PLATELET COUNT 135 10^3/uL (130-400); RED BLOOD COUNT 3.16 10^6/uL (4.35-5.85); RED CELL DISTRIBUTION WIDTH 15.4 % (10.0-14.5); WHITE BLOOD COUNT 11.4 10^3/uL (4.3-11.0)
[2017-07-23 04:34] LABS: ABG BASE EXCESS 3.8 MMOL/L (-2.5-2.5); ABG OXYGEN SATURATION 97 % (94-100); ABG PCO2 40 MMHG (35-45); ABG PH 7.45 (7.37-7.43); ABG PO2 78 MMHG (79-93); ABG TCO2 28.8 MMOL/L (21.0-31.0)
[2017-07-23 04:35] LABS: ALLENS TEST ART LINE; INSPIRED O2 40%; PATIENT TEMP 98.6; VENTILATOR YES
[2017-07-23 04:48] LABS: CALCIUM 8.6 MG/DL (8.5-10.1); CREATININE SERUM 1.27 MG/DL (0.60-1.30); MAGNESIUM 2.7 MG/DL (1.8-2.4); PHOSPHORUS 3.3 MG/DL (2.3-4.7)
[2017-07-23] MEDS: DEXMEDETOMIDINE IV SCH ×6 (05:07→22:45)
[2017-07-23] MEDS: NS IV SCH ×6 (05:07→22:45)
--- NOTE | 2017-07-23 05:09 | Pulmonary Progress Note ---
Subjective Time Seen by Provider: 05:04 Subjective/Events-last exam PT appears to be doing better on vent. Exam Exam Vital Signs Date Time Temp Pulse Resp B/P (MAP) Pulse Ox O2 Delivery O2 Flow Rate FiO2 07/23/17 04:20 Mechanical Ventilator 35.00 07/23/17 04:19 86 23 95 40 07/23/17 04:00 98.6 07/23/17 04:00 94 Mechanical Ventilator 40 07/23/17 04:00 85 20 156/59 (91) 95 Mechanical Ventilator 40.00 07/23/17 03:00 86 19 154/59 (90) 96 Mechanical Ventilator 40.00 07/23/17 02:26 84 19 96 40 07/23/17 02:00 86 17 157/59 (91) 96 Mechanical Ventilator 40.00 07/23/17 01:00 87 07/23/17 01:00 86 19 153/61 (91) 95 Mechanical Ventilator 40.00 07/23/17 00:34 89 20 95 40 07/23/17 00:30 95 Mechanical Ventilator 40 07/23/17 00:00 99.8 90 19 134/61 (85) 95 Mechanical Ventilator 40.00 07/22/17 23:00 84 17 153/62 (92) 95 Mechanical Ventilator 40.00 07/22/17 22:18 83 19 95 40 07/22/17 22:15 83 19 95 40 07/22/17 22:00 99.0 84 16 157/62 (93) 94 Mechanical Ventilator 40.00 07/22/17 21:03 85 139/52 07/22/17 21:00 98.9 85 22 137/51 (79) 94 Mechanical Ventilator 40.00 07/22/17 20:22 80 18 93 40 07/22/17 20:00 98.2 80 17 137/51 (79) 93 Mechanical Ventilator 40.00 07/22/17 19:45 Mechanical Ventilator 40 07/22/17 19:00 79 07/22/17 19:00 98.7 07/22/17 19:00 80 17 140/52 (81) 93 Mechanical Ventilator 40.00 07/22/17 18:24 78 18 93 40 07/22/17 18:00 73 18 137/81 (99) 95 Mechanical Ventilator 40.00 07/22/17 17:05 96.9 07/22/17 17:00 77 18 147/56 (86) 92 Mechanical Ventilator 40.00 07/22/17 16:55 Mechanical Ventilator 50 07/22/17 16:16 75 18 95 40 07/22/17 16:10 Mechanical Ventilator 40.00 07/22/17 16:08 139/53 07/22/17 16:00 73 18 140/54 (82) 95 Mechanical Ventilator 50.00 07/22/17 15:00 73 36 162/60 (94) 96 Mechanical Ventilator 50.00 07/22/17 14:35 72 18 96 50 07/22/17 14:00 73 18 156/57 (90) 95 Mechanical Ventilator 50.00 07/22/17 13:30 96.5 Mechanical Ventilator 50.00 07/22/17 13:00 73 18 152/55 (87) 95 Mechanical Ventilator 50.00 07/22/17 13:00 73 07/22/17 12:40 Mechanical Ventilator 50 07/22/17 12:20 72 18 95 50 07/22/17 12:00 74 18 146/54 (84) 95 Mechanical Ventilator 50.00 07/22/17 11:00 72 17 147/55 (85) 93 Mechanical Ventilator 50.00 07/22/17 10:46 72 21 94 50 07/22/17 10:00 69 16 185/78 (113) 94 Mechanical Ventilator 50.00 07/22/17 09:43 144/54 07/22/17 09:00 71 18 123/46 (71) 94 Mechanical Ventilator 50.00 07/22/17 08:13 78 22 94 50 07/22/17 08:10 Mechanical Ventilator 60 07/22/17 08:00 98.1 Mechanical Ventilator 50.00 07/22/17 08:00 Mechanical Ventilator 50.00 07/22/17 07:01 159/56 07/22/17 07:00 73 07/22/17 07:00 73 20 158/57 (90) 96 Mechanical Ventilator 60.00 07/22/17 06:41 95 Mechanical Ventilator 50 07/22/17 06:17 70 18 94 50 07/22/17 06:00 71 18 146/52 (83) 97 Mechanical Ventilator 60.00 I & O 07/23/17 07:00 Intake Total 927 ml Output Total 2155 ml Balance -1228 ml General Appearance: No Apparent Distress, Chronically ill, Other (Cushingoid appearance) HEENT: PERRL/EOMI, Normal ENT Inspection Neck: Full Range of Motion, Normal Inspection, Non Tender, Supple, Carotid Bruit Respiratory: No Accessory Muscle Use, No Respiratory Distress, Decreased Breath Sounds Cardiovascular: Regular Rate, Rhythm, No Edema, No Gallop, No JVD, No Murmur, Normal Peripheral Pulses Capillary Refill: Less Than 3 Seconds Gastrointestinal: normal bowel sounds, soft, no organomegaly, no pulsatile mass Extremity: Other (3+ edema involving all extremities strongly's are warm) Neurologic/Psychiatric: Alert (2+ bilateral edema noted. For extremities affected. Right leg ulcer essentially completely healed), Other (Anxious) Skin: Pallor Lymphatic: No Adenopathy Results Lab Laboratory Tests 07/22/17 04:45 07/23/17 04:20 Assessment/Plan Assessment/Plan Acute respiratory failure -Pt is doing well on vent. Hold diprivan during the day and change vent to SIMV/PS during the day. 7AM- 1900 Hold diprivan Restart diprivan from 1900-7AM and back to AC -SVNs --Change SVNs to Q2 -Solumedrol -Start TF pulmicare and consult dietary -CT of chest without contrast -- reviewed Anxiety -Start Risperdal 0.1mg BID -hx Churg Kunal -Pt follows with [facility] pulm/infectious disease Chronic elevation of right diaphragm Anemia -monitor pneumonia with Pseudomonus -Cefepime Immunosuppression hx Debility -consult PT/OT -hx of stable BETHANY nodule per CT scan 233 Clinical Quality Measures DVT/VTE Risk/Contraindication: Risk Factor Score Per Nursin RFS Level Per Nursing on Admit: 3=High MEDINA VILLEGAS DO Jul 23, 2017 05:09
[2017-07-23] MEDS: MAGNESIUM 1 GM/100 ML IVPB 100 ML IV SCH (05:36)
[2017-07-23] MEDS: KCL 20 MEQ TAB (K-DUR) PO SCH (05:36)
[2017-07-23] MEDS: POTASSIUM CL 10MEQ/50ML IVPB 50 ML IV SCH (05:36)
[2017-07-23] MEDS: NS IV 1000 ML 1,000 ML IV SCH (05:42)
[2017-07-23] MEDS: meTOprolol 5 MG/5 ML (LOPRESSOR) VIAL IV PRN (06:57)
[2017-07-23] MEDS: RT-BUDESONIDE NEBS 0.5 MG/2ML (PULMICORT) AMP INH SCH ×2 (07:04→20:01)
--- NOTE | 2017-07-23 07:29 | Diagnostic Imaging Report ---
INDICATION: Pneumonia, dyspnea. TECHNIQUE: Single view chest 4:02 a.m. CORRELATION STUDY: 07/22/2017 FINDINGS: Endotracheal tube, gastric tube remain in place. Left-sided central line unchanged. Heart size enlarged. Mediastinum prominent. Unchanged elevation of the right diaphragm with infiltrate and effusion in the right lung base. Left lung minimal basilar atelectasis. IMPRESSION: 1. Cardiac enlargement unchanged without evidence for overt failure. 2. Combination of infiltrate or effusion in the right lung base. Minimal atelectasis in the left lung base. 3. Stable support lines and tubes. Dictated by: Dictated on workstation # [id number]
[2017-07-23] MEDS: VORICONAZOLE 200 MG TAB (VFEND) NON-FORMULARY PO SCH ×2 (08:08→20:32)
[2017-07-23] MEDS: PANTOPRAZOLE 40 MG/10 ML (PROTONIX) VIAL IV SCH (08:09)
[2017-07-23] MEDS: LOSARTAN 25 MG (COZAAR) TAB PO SCH (08:09)
[2017-07-23] MEDS: BUMETANIDE 1 MG (BUMEX) TAB PO SCH (08:09)
[2017-07-23] MEDS: guaiFENesin (MUCINEX) 600 MG TAB PO SCH ×2 (08:10→20:47)
[2017-07-23] MEDS: CEFEPIME 2 GM/D5W 50 ML IVPB IV SCH ×4 (08:10→20:46)
[2017-07-23] MEDS: risperiDONE 0.25 MG (RisperDAL) TAB PO SCH ×2 (08:15→20:33)
--- NOTE | 2017-07-23 08:44 | Progress Note-Hospitalist ---
Subjective HPI/CC On Admission Date Seen by Provider: Jul 23, 2017 Time Seen by Provider: 08:00 Mr. 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 Initially sputum was clear but then it became colored. He increase his prednisone from 20 mg to 40 mg daily and presented to my office on the . There he did have significant wheezing but was maintaining saturations on room air 95-96 percent. He did not wish to be admitted to the hospital at that time so he was discharged on Levaquin. He has a past history of Pseudomonas that was pansensitive cultured from a venous insufficiency ulcer but also required hyperbaric oxygen therapy on his right lower extremity. It has been improving through wound care but at one point was quite large and he still has a significant area of skin breakdown although he does have pink granulation tissue no increase in pain and they have been pleased as of late with wound healing. He called my office the afternoon of the reporting the onset of severe left-sided chest pain worse with breathing worse with cough that actually followed a paroxysm of cough. It was too painful to take deep breaths and he was feeling more short of breath. Sputum culture obtained as an outpatient was growing Pseudomonas on admission but sensitivities were not yet available. He is at high risk for progression to overt respiratory failure and was admitted to the intensive care unit for close monitoring and further therapeutics. Past medical history is most significant for Churg-Nils tenting as pulmonary hemorrhage in 2001. Other than prednisone his only other medication is IVIG. He has a history of disseminated histoplasmosis for which she has been on voriconazole for the past several years continues to have elevated androgen levels and urine and blood. They have been controlled however with chronic suppressive voriconazole therapy. He follows at for his pulmonary and infectious disease issues. 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 He has been on Forteo as of late but I did have concerns over possible cough related rib fracture considering this history. Subjective/Events-last exam patient awake and alert this morning off diprovan on pressure support. he does not appear to be in distress. He is able to communicate with no evidence for confusion. He was wondering about the possibility of extubation. This morning is his first attempt at pressure support scheduled to go on for the rest of the day, after report scant clear secretions with infrequent need for suctioning. Urine output is picked up with no change in IV fluid. Objective Exam Vital Signs Vital Sign - Last 12Hours 07/17/17 07/17/17 16:45 20:05 Temp 99.8 Pulse 112 Resp 18 B/P (MAP) 192/107 (135) Pulse Ox 97 O2 Delivery High Flow N/C O2 Flow Rate 5.00 FiO2 45 Capillary Refill : Less Than 3 Seconds General Appearance: No Apparent Distress, Anxious, Chronically ill Respiratory: No Accessory Muscle Use, No Respiratory Distress, Other (faint expiratory wheeze anteriorly at the end of expiration with a few scattered rhonchi) Cardiovascular: Regular Rate, Rhythm, No Edema, No Gallop, No JVD, No Murmur, Normal Peripheral Pulses Gastrointestinal: Normal Bowel Sounds, No Organomegaly, No Pulsatile Mass, Non Tender, Soft Extremity: Other (improvement in upper and lower extremity edema) Neurologic/Psychiatric: Alert Results/Procedures Lab Laboratory Tests 07/23/17 04:20 Assessment/Plan Assessment and Plan Assess & Plan/Chief Complaint 1. Pseudomonas bronchitis with acute exacerbation of underlying lung disease. Pseudomonas on previous outpatient culture from last Friday also growing Enterobacter both sensitive to cefepime scheduled for discontinuance after today 's dose. Secondary respiratory failure improved patient tolerating pressure support trial well thus far with improvement in ABGs down to 40 percent FiO2.. 2.Churg-Kunal/EGPA acute flare doubtful continue his monthly IVIG and considering number 1 higher dose Solu-Medrol taper Solu-Medrol when reactive airways show signs of improvement. 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 4. Left chest wall pain favor muscle spasm as it is a little more diffuse than one would expect for occult rib fracture as well as minimal improvement on morphine will add IV Norflex patient warned about sedation continue O2 sat monitoring continuous. 5. Slowly increasing BUN and creatinine compatible with relative intravascular volume depletion improving likely due to improved oxygenation status. Complex medical management. 6. Impending malnutrition enteral feeding being initiated with free water boluses. ERIC ADAM MD Jul 23, 2017 08:44
[2017-07-23 09:27] LABS: ABG OXYGEN SATURATION 98 % (94-100); ABG PCO2 40 MMHG (35-45); ABG PH 7.46 (7.37-7.43); ABG PO2 80 MMHG (79-93)
[2017-07-23 09:31] LABS: ALLENS TEST ART LINE
[2017-07-23 09:32] LABS: INSPIRED O2 35%; PATIENT TEMP 98.7; VENTILATOR YES
--- NOTE | 2017-07-23 09:53 | Diagnostic Imaging Report ---
INDICATION: Acute kidney failure and possible right kidney cyst. COMPARISON: Correlation is made with a CT study from 07/22/2017. FINDINGS: The right kidney measures 11.1 x 5.3 x 6.0 cm and the left kidney measures 10.7 x 5.8 x 5.8 cm. The patient's upper pole of the right kidney was obscured by bowel gas. Therefore, the lesion noted on CT cannot be evaluated by ultrasound. Cortical thickness and echogenicity is normal. No hydronephrosis or calculi are seen. IMPRESSION: Right renal mass cannot be evaluated by ultrasound, as described. CT abdomen with and without IV contrast could be performed, when the patient is clinically able. Dictated by: Dictated on workstation # [id number]
--- NOTE | 2017-07-23 13:33 | Physical Therapy Progress Note ---
Therapy Progress Note Patient still on vent. PT will monitor and evaluate when patient's medial condition improves. IRENE FALL PT Jul 23, 2017 13:33
--- NOTE | 2017-07-23 13:40 | Occ Therapy Progress Note ---
Therapy Progress Note Pt. is on ventilator at this time. Will continue to monitor pt. and treat when off vent. 1340 ALISSA SERRA OT Jul 23, 2017 13:40
[2017-07-23] MEDS: guaiFENesin/DM (ROBITUSSIN DM) 10 ML UDC PO PRN ×2 (15:43→20:32)
[2017-07-23] MEDS: morphine INJ 4 MG/ML 1 ML (VIAL/SYRINGE) IVP PRN ×2 (15:44→20:33)
[2017-07-23] MEDS: HYDROcodone/APAP 10 MG/325 MG (LORTAB) TAB PO PRN ×2 (18:41→23:05)
[2017-07-23] MEDS: ENOXAPARIN 40 MG/0.4 ML (LOVENOX) SYR SC SCH (18:46)
[2017-07-23] MEDS: SENNOSIDES 8.6 MG (SENOKOT) TAB PO PRN (20:32)
[2017-07-23] MEDS: DILTIAZEM 240 MG (CARDIZEM CD) CAP PO SCH (20:46)
[2017-07-24] VITALS (39 sets, daily range): BP systolic 91–199; BP diastolic 46–82
[2017-07-24] MEDS: methylPREDNISolone 40 MG/ML (Solu-MEDROL) VIAL IV SCH ×4 (00:39→18:40)
[2017-07-24] MEDS: inSUlin (REGULAR) HUMAN 1 UNIT/0.01 ML (CHARGE PER UNIT) SC SCH ×4 (00:39→19:03)
[2017-07-24] MEDS: RT-ALBUTEROL/IPRATROPIUM 3 ML (DUONEB) VIAL IH SCH ×11 (00:52→22:25)
[2017-07-24 00:56] LABS: ABG BASE EXCESS 2.4 MMOL/L (-2.5-2.5); ABG OXYGEN SATURATION 97 % (94-100); ABG PCO2 41 MMHG (35-45); ABG PH 7.42 (7.37-7.43); ABG PO2 75 MMHG (79-93); ALLENS TEST YES-POS; INSPIRED O2 40%; VENTILATOR YES
[2017-07-24 00:57] LABS: PATIENT TEMP 96.8
[2017-07-24] MEDS: morphine INJ 4 MG/ML 1 ML (VIAL/SYRINGE) IVP PRN ×5 (00:57→21:19)
[2017-07-24] MEDS: NS IV 1000 ML 1,000 ML IV SCH ×2 (02:07→22:28)
[2017-07-24] MEDS: HYDROcodone/APAP 10 MG/325 MG (LORTAB) TAB PO PRN ×2 (05:07→18:41)
[2017-07-24] MEDS ORDERED: fentaNYL (OMNICELL DRIP KIT ONLY) 250 MCG/5 ML AMP ONE (05:30)
[2017-07-24] MEDS ORDERED: NS (IVPB) 100 ML ONE (05:31)
[2017-07-24 05:36] LABS: ABG BASE EXCESS 1.3 MMOL/L (-2.5-2.5); ABG OXYGEN SATURATION 97 % (94-100); ABG PCO2 44 MMHG (35-45); ABG PH 7.38 (7.37-7.43); ABG PO2 77 MMHG (79-93); ABG TCO2 27.4 MMOL/L (21.0-31.0)
[2017-07-24 05:44] LABS: ALLENS TEST ART LINE; INSPIRED O2 405; PATIENT TEMP 97.2; VENTILATOR YES
[2017-07-24 05:45] LABS: BASOPHILS % (AUTO) 0 % (0-10); EOSINOPHILS % (AUTO) 0 % (0-10); HEMATOCRIT 29 % (40-54); HEMOGLOBIN 8.8 G/DL (13.3-17.7); LYMPHOCYTES # (AUTO) 0.2 X 10^3 (1.0-4.0); LYMPHOCYTES % (AUTO) 2 % (12-44); MEAN CORPUSCULAR HEMOGLOBIN 27 PG (25-34); MEAN CORPUSCULAR HGB CONC 31 G/DL (32-36); MEAN CORPUSCULAR VOLUME 89 FL (80-99); MEAN PLATELET VOLUME 10.3 FL (7.4-10.4); MONOCYTES # (AUTO) 0.8 X 10^3 (0.0-1.0); MONOCYTES % (AUTO) 7 % (0-12); NEUTROPHILS # (AUTO) 11.1 X 10^3 (1.8-7.8); NEUTROPHILS % (AUTO) 91 % (42-75); PLATELET COUNT 161 10^3/uL (130-400); RED BLOOD COUNT 3.23 10^6/uL (4.35-5.85); RED CELL DISTRIBUTION WIDTH 15.9 % (10.0-14.5); WHITE BLOOD COUNT 12.1 10^3/uL (4.3-11.0)
--- NOTE | 2017-07-24 05:59 | Pulmonary Progress Note ---
Subjective Time Seen by Provider: 06:01 Subjective/Events-last exam Pt is awake and alert complains of back spasms. He Exam Exam Vital Signs Date Time Temp Pulse Resp B/P (MAP) Pulse Ox O2 Delivery O2 Flow Rate FiO2 07/24/17 04:42 50 07/24/17 03:00 84 18 162/62 (95) 96 Mechanical Ventilator 40.00 07/24/17 02:27 87 23 96 50 07/24/17 02:00 77 16 157/58 (91) 96 Mechanical Ventilator 40.00 07/24/17 01:00 90 07/24/17 01:00 87 18 139/61 (87) 97 Mechanical Ventilator 40.00 07/24/17 00:52 84 23 94 50 07/24/17 00:00 93 Mechanical Ventilator 40 07/24/17 00:00 80 20 155/59 (91) 94 Mechanical Ventilator 40.00 07/23/17 23:00 82 30 148/60 (89) 94 Mechanical Ventilator 40.00 07/23/17 22:02 80 20 96 50 07/23/17 22:00 80 20 154/56 (88) 95 Mechanical Ventilator 40.00 07/23/17 21:58 80 20 96 50 07/23/17 21:00 82 21 153/56 (88) 95 Mechanical Ventilator 40.00 07/23/17 20:13 88 07/23/17 20:01 82 21 92 50 07/23/17 20:00 91 44 158/65 (96) 96 Mechanical Ventilator 40.00 07/23/17 20:00 93 Mechanical Ventilator 40 07/23/17 19:42 98.1 Mechanical Ventilator 40.00 07/23/17 19:00 101 37 170/62 (98) 89 Mechanical Ventilator 40.00 07/23/17 19:00 100 07/23/17 18:40 79 20 96 50 07/23/17 18:00 77 26 169/64 (99) 95 Mechanical Ventilator 40.00 07/23/17 17:00 90 30 180/73 (108) 95 Mechanical Ventilator 40.00 07/23/17 16:34 77 25 93 50 07/23/17 16:13 93 Mechanical Ventilator 40 07/23/17 16:00 84 18 154/69 (97) 97 Mechanical Ventilator 40.00 07/23/17 15:00 83 20 173/77 (109) 9 Mechanical Ventilator 40.00 07/23/17 14:15 76 20 92 50 07/23/17 14:00 75 18 183/65 (104) 90 Mechanical Ventilator 40.00 07/23/17 13:00 81 07/23/17 13:00 81 20 159/64 (95) 93 Mechanical Ventilator 40.00 07/23/17 12:25 79 22 92 40 07/23/17 12:16 93 Mechanical Ventilator 40 07/23/17 12:00 81 20 158/73 (101) 93 Mechanical Ventilator 40.00 07/23/17 12:00 98.6 Mechanical Ventilator 40.00 07/23/17 11:00 76 20 153/58 (89) 91 Mechanical Ventilator 40.00 07/23/17 10:00 75 14 150/59 (89) 93 Mechanical Ventilator 40.00 07/23/17 09:49 79 23 93 40 07/23/17 09:00 76 22 151/60 (90) 91 Mechanical Ventilator 40.00 07/23/17 09:00 98.7 Mechanical Ventilator 40.00 07/23/17 08:10 94 Mechanical Ventilator 35 07/23/17 08:00 81 14 159/65 (96) 91 Mechanical Ventilator 35.00 07/23/17 07:29 82 28 91 35 07/23/17 07:05 75 19 91 35 07/23/17 07:00 75 22 166/67 (100) 93 Mechanical Ventilator 35.00 07/23/17 07:00 75 07/23/17 06:00 79 22 156/63 (94) 94 Mechanical Ventilator 35.00 I & O 07/24/17 07:00 Intake Total 785 ml Output Total 2450 ml Balance -1665 ml General Appearance: No Apparent Distress, Anxious, Chronically ill HEENT: PERRL/EOMI, Normal ENT Inspection Neck: Full Range of Motion, Normal Inspection, Non Tender, Supple, Carotid Bruit Respiratory: No Accessory Muscle Use, No Respiratory Distress, Other (faint expiratory wheeze anteriorly at the end of expiration with a few scattered rhonchi) Cardiovascular: Regular Rate, Rhythm, No Edema, No Gallop, No JVD, No Murmur, Normal Peripheral Pulses Capillary Refill: Less Than 3 Seconds Gastrointestinal: normal bowel sounds, soft, no organomegaly, no pulsatile mass Extremity: Other (improvement in upper and lower extremity edema) Neurologic/Psychiatric: Alert Skin: Pallor Lymphatic: No Adenopathy Results Lab Laboratory Tests 07/23/17 04:20 07/24/17 05:25 Assessment/Plan Assessment/Plan Acute respiratory failure -Pt is doing well on vent. Hold diprivan during the day and change vent to SIMV/PS during the day. 7AM- 1900 Hold diprivan Restart diprivan from 1900-7AM and back to AC -SVNs --Change SVNs to Q2 -Solumedrol 40 Q 6 -TF pulmicare and consult dietary -CT of chest without contrast -- reviewed -Precedex gtt -Fentanyl gtt 120mcg/hr -Morphine PRN Anxiety -Risperdal 1mg BID Back spasms -Will add Valium -hx Churg Kunal -Pt follows with [facility] pul[facility]/infectious disease Chronic elevation of right diaphragm with atelectasis -Will plan bronchoscopy this AM Anemia -monitor pneumonia with Pseudomonus -Cefepime Immunosuppression hx Debility -consult PT/OT -hx of stable BETHANY nodule per CT scan I will bronch pt today and hopefully extubate tomorrow morning. Will keep pt awake today but comfortable and trial pt on CPAP mode. 233 Clinical Quality Measures DVT/VTE Risk/Contraindication: Risk Factor Score Per Nursin RFS Level Per Nursing on Admit: 3=High MEDINA VILLEGAS DO Jul 24, 2017 05:59
[2017-07-24 06:05] LABS: BUN/CREATININE RATIO 55; CALCIUM 8.6 MG/DL (8.5-10.1); CARBON DIOXIDE 23 MMOL/L (21-32); CHLORIDE 106 MMOL/L (98-107); CREATININE SERUM 1.17 MG/DL (0.60-1.30); GFR ESTIMATED > 60; GLUCOSE 350 MG/DL (70-105); MAGNESIUM 2.4 MG/DL (1.8-2.4); PHOSPHORUS 3.6 MG/DL (2.3-4.7); POTASSIUM 3.7 MMOL/L (3.6-5.0); SODIUM 144 MMOL/L (135-145)
--- NOTE | 2017-07-24 06:06 | Progress Note-Pre Operative ---
Pre-Operative Progress Note H&P Reviewed The H&P was reviewed, patient examined and no changes noted. Time Seen by Provider: 06:06 Date H&P Reviewed: Jul 24, 2017 Time H&P Reviewed: 06:06 Pre-Operative Diagnosis: mucous plugging and atelectasis MEDINA VILLEGAS DO Jul 24, 2017 06:06
--- NOTE | 2017-07-24 06:07 | Pre-Op Note & Conscious Sedat ---
Pre-Operative Progress Note H&P Reviewed The H&P was reviewed, patient examined and no changes noted. Date H&P Reviewed: Jul 24, 2017 Time H&P Reviewed: 06:07 Conscious Sedation Pre-Proced Time Reviewed: 06:06 ASA Class: 3 Airway Mallampati Classification: (huslia appropriate class) I. II. III, IV Lungs Heart ASA score ASA 1: a normal healthy patient ASA 2: a patient with a mild systemic disease (mid diabetes, controlled hypertension, obesity ASA 3: a patient with a severe systemic disease that limits activity (angina , COPD, prior Myocardial infarction) ASA 4: a patient with an incapacitating disease that is a constant threat to life (CHF, renal failure) ASA 5: a moribund patient not expected to survive 24 hrs. (ruptured aneurysm) ASA 6: a declared brain patient whose organs are being harvested. For emergent operations, add the letter E after the classification Grade 4 Sedation Plan: Analgesia, Amnesia, Plan communicated to team members, Discussed options with patient/fam, Discussed risks with patient/fam Note The patient is an appropriate candidate to undergo the planned procedure, sedation, and anesthesia. The patient immediately re-assessed prior to indication. MEDINA VILLEGAS DO Jul 24, 2017 06:07
--- NOTE | 2017-07-24 06:08 | Pulmonary Procedures ---
Pulmonary Procedures Date of Procedure Date of Service: Jul 24, 2017 Bronch Bronchoscopy with bronchoalveolar lavage (BAL), transbronchial washes Preop DX mucous plugging and atelectasis Postop DX: same Complications: none After informed consent obtained and formal time out pt was sedated using Fentanyl diprivan and Versed. Bronchoscope was advanced through ET tube. . An anatomical tour was undertaken down to the segmental bronchi bilaterally. No endobronchial lesions noted. From the RML and RLL bronchoalveolar lavage (BAL) , transbronchial washes were obtained. Pt tolerated procedure well. No complications noted. Stat CXR is pending. MEDINA VILLEGAS DO Jul 24, 2017 06:08
[2017-07-24] MEDS ORDERED: MIDAZOLAM 5 MG/5 ML (VERSED) VIAL IVP ONE ×2 (06:15→06:45)
[2017-07-24] MEDS: POTASSIUM CL 10MEQ/50ML IVPB 50 ML IV SCH (06:40)
[2017-07-24] MEDS: KCL 20 MEQ TAB (K-DUR) PO SCH (06:40)
[2017-07-24] MEDS: MAGNESIUM 1 GM/100 ML IVPB 100 ML IV SCH (06:40)
[2017-07-24] MEDS ORDERED: inSUlin DETERMIR 1 UNIT/0.01 ML (LEVEMIR) CHARGE PER UNIT SQ NR (06:45)
[2017-07-24] MEDS: DEXMEDETOMIDINE IV SCH ×4 (07:03→17:53)
[2017-07-24] MEDS: NS IV SCH ×4 (07:03→17:53)
[2017-07-24] MEDS: PROPOFOL DRIP (ICU) 100 ML IV SCH (07:04)
[2017-07-24] MEDS: RT-BUDESONIDE NEBS 0.5 MG/2ML (PULMICORT) AMP INH SCH ×2 (07:35→20:33)
[2017-07-24] MEDS: VORICONAZOLE 200 MG TAB (VFEND) NON-FORMULARY PO SCH ×2 (08:04→21:19)
[2017-07-24] MEDS: fentaNYL INJECTION 1,250 MCG in NS (IVPB) 250 ML IV SCH (08:17)
--- NOTE | 2017-07-24 08:17 | Physical Therapy Progress Note ---
Therapy Progress Note Patient remains on vent and is to have procedure this a.m. Per report, they will trial patient on BiPap on this date. PT will assess patient when medically stable from a pulmonary standpoint. LYLA BLOUNT PT Jul 24, 2017 08:17
--- NOTE | 2017-07-24 08:21 | Progress Note-Hospitalist ---
Subjective HPI/CC On Admission Date Seen by Provider: Jul 24, 2017 Time Seen by Provider: 08:10 Mr. 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 Initially sputum was clear but then it became colored. He increase his prednisone from 20 mg to 40 mg daily and presented to my office on the . There he did have significant wheezing but was maintaining saturations on room air 95-96 percent. He did not wish to be admitted to the hospital at that time so he was discharged on Levaquin. He has a past history of Pseudomonas that was pansensitive cultured from a venous insufficiency ulcer but also required hyperbaric oxygen therapy on his right lower extremity. It has been improving through wound care but at one point was quite large and he still has a significant area of skin breakdown although he does have pink granulation tissue no increase in pain and they have been pleased as of late with wound healing. He called my office the afternoon of the reporting the onset of severe left-sided chest pain worse with breathing worse with cough that actually followed a paroxysm of cough. It was too painful to take deep breaths and he was feeling more short of breath. Sputum culture obtained as an outpatient was growing Pseudomonas on admission but sensitivities were not yet available. He is at high risk for progression to overt respiratory failure and was admitted to the intensive care unit for close monitoring and further therapeutics. Past medical history is most significant for Churg-Nils tenting as pulmonary hemorrhage in 2001. Other than prednisone his only other medication is IVIG. He has a history of disseminated histoplasmosis for which she has been on voriconazole for the past several years continues to have elevated androgen levels and urine and blood. They have been controlled however with chronic suppressive voriconazole therapy. He follows at for his pulmonary and infectious disease issues. 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 He has been on Forteo as of late but I did have concerns over possible cough related rib fracture considering this history. Subjective/Events-last exam Patient sedated on vent post therapeutic/diagnostic brought with BAL. He was started and get tired last night around 9 p.m. on pressure support but did pretty well during the day. He was placed back on SIMV around 9 o'clock p.m. per staff. He's been tolerating tube feeds well but blood sugars have been creeping up. Low-dose twice a day Levemir initiated. Urine output has been greater then fluid in the past several days. Objective Exam Vital Signs Vital Sign - Last 12Hours 07/18/17 07/18/17 00:00 08:30 Temp 98.6 Pulse 102 Resp 23 B/P (MAP) 159/103 (121) Pulse Ox 96 O2 Delivery Vapotherm O2 Flow Rate 30.00 FiO2 45 Capillary Refill : Less Than 3 Seconds General Appearance: Chronically ill Respiratory: No Respiratory Distress, Accessory Muscle Use (Mild), Other ( Scattered inspiratory rales predominantly in bases with mild faint end expiratory wheeze sedated on vent.) Cardiovascular: Regular Rate, Rhythm, No Edema, No Gallop, No JVD, No Murmur, Normal Peripheral Pulses Gastrointestinal: Normal Bowel Sounds, No Organomegaly, No Pulsatile Mass, Non Tender, Soft Extremity: Other (Plus right pedal edema 1+ left 2+ in the left upper extremity 1+ right decreasing) Results/Procedures Lab Laboratory Tests 07/24/17 05:25 Assessment/Plan Assessment and Plan Assess & Plan/Chief Complaint 1. Pseudomonas bronchitis with acute exacerbation of underlying lung disease. Pseudomonas on previous outpatient culture from last Friday also growing Enterobacter both sensitive to cefepime. Off of antibiotics BAL from this morning for cultures pending.. Secondary respiratory failure improved patient tolerating pressure support trial well thus far with improvement in ABGs down to 40 percent FiO2.. 2.Churg-Kunal/EGPA acute flare doubtful continue his monthly IVIG and considering number 1 higher dose Solu-Medrol taper Solu-Medrol when reactive airways show signs of improvement. 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 Will likely need significantly more basal insulin will increase Levemir to 20 units twice a day as long as patient is continuing on high-dose steroids hypoglycemia unlikely. 4. Left chest wall pain favor muscle spasm as it is a little more diffuse than one would expect for occult rib fracture as well as minimal improvement on morphine will add IV Norflex patient warned about sedation continue O2 sat monitoring continuous. 5. Slowly increasing BUN and creatinine compatible with relative intravascular volume depletion improving likely due to improved oxygenation status. Complex medical management. 6. Impending malnutrition enteral feeding being initiated with free water boluses. ERIC ADAM MD Jul 24, 2017 08:21
--- NOTE | 2017-07-24 08:44 | Diagnostic Imaging Report ---
INDICATION: Status post bronchoscopy. TIME OF EXAM: 6:54 AM Correlation is made with prior study from earlier the same day. FINDINGS: Endotracheal tube remains above the cortez. Left upper extremity PICC line has tip overlying SVC. Right hemidiaphragm is chronically elevated. Airspace infiltrates are identified in both lungs. There is no pneumothorax identified. IMPRESSION: No pneumothorax status post bronchoscopy. There are patchy airspace infiltrates in both lung bases. Dictated by: Dictated on workstation # [id number]
[2017-07-24] MEDS: PANTOPRAZOLE 40 MG/10 ML (PROTONIX) VIAL IV SCH (09:47)
[2017-07-24] MEDS: LOSARTAN 25 MG (COZAAR) TAB PO SCH (09:47)
[2017-07-24] MEDS: BUMETANIDE 1 MG (BUMEX) TAB PO SCH (09:48)
[2017-07-24] MEDS: SENNOSIDES 8.6 MG (SENOKOT) TAB PO PRN (09:48)
[2017-07-24] MEDS: risperiDONE 0.25 MG (RisperDAL) TAB PO SCH ×2 (09:48→21:20)
[2017-07-24] MEDS: hydrALAZINE (APESOLINE) 20 MG/ML VIAL IV PRN ×2 (10:02→18:41)
--- NOTE | 2017-07-24 10:18 | Diagnostic Imaging Report ---
INDICATION: Pneumonia and dyspnea. TIME OF EXAM: 4:39 AM. COMPARISON: 07/23/2017. FINDINGS: The endotracheal tube, nasogastric tube, and left upper extremity PICC line remain in place. The right hemidiaphragm is chronically elevated. There is some subsegmental atelectasis or infiltrate in the right lung base. No pneumothorax is seen. IMPRESSION: Stable chest since one day earlier. Dictated by: Dictated on workstation # [id number]
--- NOTE | 2017-07-24 13:33 | Occ Therapy Progress Note ---
Therapy Progress Note 1330 Pt still on vent and sedated. Will follow JERAMIE TROTTER OT Jul 24, 2017 13:33
[2017-07-24] MEDS: DIAZEPAM INJ 10 MG/2 ML (VALIUM) SYR IV PRN ×2 (14:49→21:19)
[2017-07-24] MEDS: meTOprolol 5 MG/5 ML (LOPRESSOR) VIAL IV PRN (15:57)
[2017-07-24] MEDS: ENOXAPARIN 40 MG/0.4 ML (LOVENOX) SYR SC SCH (18:40)
[2017-07-24] MEDS ORDERED: ORPHENADRINE 60 MG/2 ML (NORFLEX) AMP IV ONE (19:00)
[2017-07-24] MEDS: ORPHENADRINE 60 MG/2 ML (NORFLEX) AMP IV SCH (19:37)
[2017-07-24 20:46] LABS: ABG BASE EXCESS 3.9 MMOL/L (-2.5-2.5); ABG OXYGEN SATURATION 97 % (94-100); ABG PCO2 51 MMHG (35-45); ABG PH 7.37 (7.37-7.43); ABG PO2 79 MMHG (79-93); ABG TCO2 30.5 MMOL/L (21.0-31.0)
[2017-07-24 20:47] LABS: ALLENS TEST ARTLINE; INSPIRED O2 50%; VENTILATOR YES
[2017-07-24] MEDS: HALOPERIDOL 5 MG/ML (HALDOL) AMP IV PRN (21:19)
[2017-07-24] MEDS: guaiFENesin/DM (ROBITUSSIN DM) 10 ML UDC PO PRN (21:19)
[2017-07-24] MEDS: DILTIAZEM 60 MG (CARDIZEM) TAB PO SCH (21:20)
[2017-07-25] VITALS (41 sets, daily range): BP systolic 108–174; BP diastolic 49–76
[2017-07-25] MEDS: RT-ALBUTEROL/IPRATROPIUM 3 ML (DUONEB) VIAL IH SCH ×12 (00:15→22:21)
[2017-07-25] MEDS: DILTIAZEM 60 MG (CARDIZEM) TAB PO SCH ×5 (00:35→23:33)
[2017-07-25] MEDS: HYDROcodone/APAP 10 MG/325 MG (LORTAB) TAB PO PRN ×3 (00:35→22:01)
[2017-07-25] MEDS: methylPREDNISolone 40 MG/ML (Solu-MEDROL) VIAL IV SCH ×4 (00:35→22:01)
[2017-07-25] MEDS: inSUlin (REGULAR) HUMAN 1 UNIT/0.01 ML (CHARGE PER UNIT) SC SCH ×4 (00:35→18:33)
[2017-07-25] MEDS: PROPOFOL DRIP (ICU) 100 ML IV SCH ×5 (00:36→22:57)
[2017-07-25] MEDS: NS IV SCH ×2 (04:24)
[2017-07-25] MEDS: DEXMEDETOMIDINE IV SCH ×2 (04:24)
[2017-07-25] MEDS: fentaNYL INJECTION 1,250 MCG in NS (IVPB) 250 ML IV SCH ×2 (04:26→16:57)
[2017-07-25 04:37] LABS: BASOPHILS % (AUTO) 0 % (0-10); EOSINOPHILS % (AUTO) 0 % (0-10); HEMATOCRIT 26 % (40-54); LYMPHOCYTES # (AUTO) 0.2 X 10^3 (1.0-4.0); LYMPHOCYTES % (AUTO) 3 % (12-44); MEAN CORPUSCULAR HEMOGLOBIN 28 PG (25-34); MEAN CORPUSCULAR HGB CONC 30 G/DL (32-36); MEAN CORPUSCULAR VOLUME 91 FL (80-99); MEAN PLATELET VOLUME 10.7 FL (7.4-10.4); MONOCYTES # (AUTO) 0.8 X 10^3 (0.0-1.0); MONOCYTES % (AUTO) 10 % (0-12); NEUTROPHILS # (AUTO) 7.1 X 10^3 (1.8-7.8); NEUTROPHILS % (AUTO) 87 % (42-75); PLATELET COUNT 146 10^3/uL (130-400); RED BLOOD COUNT 2.89 10^6/uL (4.35-5.85); RED CELL DISTRIBUTION WIDTH 16.1 % (10.0-14.5); WHITE BLOOD COUNT 8.2 10^3/uL (4.3-11.0)
[2017-07-25 04:38] LABS: ABG BASE EXCESS 3.7 MMOL/L (-2.5-2.5); ABG OXYGEN SATURATION 95 % (94-100); ABG PCO2 45 MMHG (35-45); ABG PH 7.41 (7.37-7.43); ABG PO2 67 MMHG (79-93); ABG TCO2 29.5 MMOL/L (21.0-31.0)
[2017-07-25 04:41] LABS: ALLENS TEST ART LINE; INSPIRED O2 50%; PATIENT TEMP 98.2; VENTILATOR YES
[2017-07-25] MEDS: hydrALAZINE (APESOLINE) 20 MG/ML VIAL IV PRN ×2 (04:58→18:39)
[2017-07-25 04:59] LABS: CALCIUM 8.6 MG/DL (8.5-10.1); CREATININE SERUM 1.24 MG/DL (0.60-1.30); MAGNESIUM 2.5 MG/DL (1.8-2.4); PHOSPHORUS 3.7 MG/DL (2.3-4.7); POTASSIUM 3.7 MMOL/L (3.6-5.0)
[2017-07-25] MEDS: morphine INJ 4 MG/ML 1 ML (VIAL/SYRINGE) IVP PRN (04:59)
[2017-07-25] MEDS: ORPHENADRINE 60 MG/2 ML (NORFLEX) AMP IV SCH ×3 (05:02→22:01)
--- NOTE | 2017-07-25 05:42 | Pulmonary Progress Note ---
Subjective Time Seen by Provider: 05:46 Subjective/Events-last exam Pt is comfortable on vent. Exam Exam Vital Signs Date Time Temp Pulse Resp B/P (MAP) Pulse Ox O2 Delivery O2 Flow Rate FiO2 07/25/17 05:00 87 23 168/60 (96) 90 Mechanical Ventilator 50.00 07/25/17 04:40 93 34 90 50 07/25/17 04:20 73 19 95 50 07/25/17 04:00 98.8 72 18 122/51 (74) 96 Mechanical Ventilator 50.00 07/25/17 04:00 93 Mechanical Ventilator 50 07/25/17 03:00 75 17 115/49 (71) 95 Mechanical Ventilator 50.00 07/25/17 02:09 73 18 117/49 (71) 93 Mechanical Ventilator 50.00 07/25/17 02:03 74 19 94 60 07/25/17 02:00 78 18 149/54 (85) 96 Mechanical Ventilator 60.00 07/25/17 01:00 83 22 149/54 (85) 93 Mechanical Ventilator 60.00 07/25/17 01:00 83 07/25/17 00:20 76 16 137/53 (81) 96 Mechanical Ventilator 60.00 07/25/17 00:15 77 17 96 70 07/25/17 00:00 98.6 79 17 136/52 (80) 96 Mechanical Ventilator 70.00 07/25/17 00:00 93 Mechanical Ventilator 50 07/24/17 23:00 98.4 79 24 117/46 (69) 93 Mechanical Ventilator 70.00 07/24/17 22:41 77 23 91/47 (62) 92 Mechanical Ventilator 70.00 07/24/17 22:25 78 19 90 50 07/24/17 22:00 98.2 78 18 105/47 (66) 92 Mechanical Ventilator 50.00 07/24/17 21:00 98.4 87 18 109/51 (70) 95 Mechanical Ventilator 50.00 07/24/17 20:44 90 20 95 50 07/24/17 20:34 90 21 94 50 07/24/17 20:00 93 Mechanical Ventilator 50 07/24/17 20:00 98.6 90 19 128/53 (78) 93 Mechanical Ventilator 50.00 07/24/17 19:45 94 22 133/52 (79) 93 Mechanical Ventilator 50.00 07/24/17 19:30 102 31 177/68 (104) 94 Mechanical Ventilator 50.00 07/24/17 19:15 98 25 170/64 (99) 96 Mechanical Ventilator 50.00 07/24/17 19:00 98.6 96 31 166/63 (97) 96 Mechanical Ventilator 50.00 07/24/17 19:00 98.8 Mechanical Ventilator 50.00 07/24/17 19:00 96 07/24/17 18:26 92 29 97 50 07/24/17 18:00 97 34 177/68 (104) 95 Mechanical Ventilator 50.00 07/24/17 17:00 85 31 169/67 (101) 95 Mechanical Ventilator 50.00 07/24/17 16:47 86 34 95 50 07/24/17 16:00 93 Mechanical Ventilator 50 07/24/17 16:00 86 35 158/72 (100) 92 Mechanical Ventilator 50.00 07/24/17 16:00 97.6 Mechanical Ventilator 50.00 07/24/17 15:00 87 21 150/64 (92) 96 Mechanical Ventilator 50.00 07/24/17 14:00 100 34 165/71 (102) 96 Mechanical Ventilator 50.00 07/24/17 13:34 87 20 98 50 07/24/17 13:00 80 17 147/57 (87) 96 Mechanical Ventilator 50.00 07/24/17 13:00 81 07/24/17 12:00 99.3 Mechanical Ventilator 50.00 07/24/17 12:00 93 Mechanical Ventilator 50 07/24/17 12:00 89 22 163/62 (95) 97 Mechanical Ventilator 50.00 07/24/17 11:00 86 20 133/52 (79) 96 Mechanical Ventilator 50.00 07/24/17 10:19 99 29 98 50 07/24/17 10:00 88 17 167/63 (97) 97 Mechanical Ventilator 50.00 07/24/17 09:01 87 19 96 50 07/24/17 09:00 86 16 170/63 (98) 96 Mechanical Ventilator 50.00 07/24/17 08:00 98.8 Mechanical Ventilator 50.00 07/24/17 08:00 87 19 156/57 (90) 95 Mechanical Ventilator 50.00 07/24/17 08:00 93 Mechanical Ventilator 50 07/24/17 07:53 96 Mechanical Ventilator 50 07/24/17 07:35 87 20 93 50 07/24/17 07:04 88 07/24/17 07:00 88 07/24/17 07:00 88 23 135/53 (80) 93 Mechanical Ventilator 40.00 07/24/17 06:00 102 33 199/76 (117) 94 Mechanical Ventilator 40.00 I & O 07/25/17 07:00 Intake Total 1105 ml Output Total 2600 ml Balance -1495 ml General Appearance: Chronically ill HEENT: PERRL/EOMI, Normal ENT Inspection Neck: Full Range of Motion, Normal Inspection, Non Tender, Supple, Carotid Bruit Respiratory: No Respiratory Distress, Accessory Muscle Use (Mild), Other ( Scattered inspiratory rales predominantly in bases with mild faint end expiratory wheeze sedated on vent.) Cardiovascular: Regular Rate, Rhythm, No Edema, No Gallop, No JVD, No Murmur, Normal Peripheral Pulses Capillary Refill: Less Than 3 Seconds Gastrointestinal: normal bowel sounds, soft, no organomegaly, no pulsatile mass Extremity: Other (Plus right pedal edema 1+ left 2+ in the left upper extremity 1+ right decreasing) Neurologic/Psychiatric: Alert Skin: Pallor Lymphatic: No Adenopathy Results Lab Laboratory Tests 07/24/17 05:25 07/25/17 04:30 Assessment/Plan Assessment/Plan Acute respiratory failure -Pt is doing well on vent. Hold diprivan during the day and change vent to SIMV/PS during the day. 7AM- 1900 Hold diprivan Restart diprivan from 1900-7AM and back to AC -SVNs --Change SVNs to Q2 -Solumedrol 40 Q 6 -TF pulmicare and consult dietary -CT of chest without contrast -- reviewed -Precedex gtt -Fentanyl gtt 120mcg/hr -Morphine PRN Anxiety -Risperdal 1mg BID Back spasms - Valium -hx Churg Kunal -Pt follows with [facility] pulm/infectious disease Chronic elevation of right diaphragm with atelectasis Anemia -monitor pneumonia with Pseudomonas -Cefepime - auto stopped yesterday. PT has pseudomonus so he needs 14 days of treatment. I am going to restart Cefepime. Immunosuppression hx Debility -consult PT/OT -hx of stable BETHANY nodule per CT scan will attempt weaning/extubation today. 233 Clinical Quality Measures DVT/VTE Risk/Contraindication: Risk Factor Score Per Nursin RFS Level Per Nursing on Admit: 3=High MEDINA VILLEGAS DO Jul 25, 2017 05:42
[2017-07-25] MEDS: aCETylcysteine 20% (MUCOMYST) 30ML SOLN VIAL INH SCH ×5 (06:18→22:21)
[2017-07-25] MEDS: POTASSIUM CL 10MEQ/50ML IVPB 50 ML IV SCH (06:35)
[2017-07-25] MEDS: MAGNESIUM 1 GM/100 ML IVPB 100 ML IV SCH (06:35)
[2017-07-25] MEDS: KCL 20 MEQ TAB (K-DUR) PO SCH (06:35)
[2017-07-25] MEDS: RT-BUDESONIDE NEBS 0.5 MG/2ML (PULMICORT) AMP INH SCH ×2 (07:42→20:48)
--- NOTE | 2017-07-25 08:03 | Physical Therapy Progress Note ---
Therapy Progress Note Patient continues to require vent. Per report, they will attempt to decrease need for vent and extubate. PT will continue to monitor patient's medical status. LYLA BLOUNT PT Jul 25, 2017 08:03
[2017-07-25 08:24] LABS: ABG BASE EXCESS 2.7 MMOL/L (-2.5-2.5); ABG OXYGEN SATURATION 98 % (94-100); ABG PCO2 48 MMHG (35-45); ABG PH 7.38 (7.37-7.43); ABG PO2 93 MMHG (79-93); ABG TCO2 28.8 MMOL/L (21.0-31.0)
[2017-07-25 08:26] LABS: ALLENS TEST POSITIVE; INSPIRED O2 60%; VENTILATOR YES
[2017-07-25 08:27] LABS: PATIENT TEMP 98.4
--- NOTE | 2017-07-25 08:39 | Occ Therapy Progress Note ---
Therapy Progress Note 827 Pt still on vent and pt's thought he would be sedated today because he had a lot of back pain yesterday and didn't get much rest. Will continue to follow. JERAMIE TROTTER OT Jul 25, 2017 08:39
--- NOTE | 2017-07-25 08:44 | Diagnostic Imaging Report ---
INDICATION: Dyspnea. Comparison made with prior examination from 07/24/2017. FINDINGS: There is cardiomegaly. There is some venous congestion. There is elevation of the right hemidiaphragm. There is a right base infiltrate suspect for pneumonia. There is also some left basilar atelectasis and/or pneumonitis. There are more patchy infiltrates in the right upper lobe. There is no pneumothorax. Nasogastric tube appears to have been retracted and is now in mid esophagus. Endotracheal tube remains in satisfactory position. IMPRESSION: Bibasal infiltrates more consolidated on the right suspect for pneumonia. Cardiomegaly and mild venous congestion. Nasogastric tube appears to have been partially withdrawn and now has its tip in the midesophagus. Dictated by: Dictated on workstation # [id number]
[2017-07-25] MEDS ORDERED: inSUlin DETERMIR 1 UNIT/0.01 ML (LEVEMIR) CHARGE PER UNIT SQ SCH ×3 (09:00→21:00)
[2017-07-25] MEDS: VORICONAZOLE 200 MG TAB (VFEND) NON-FORMULARY PO SCH ×2 (10:12→22:02)
[2017-07-25] MEDS: risperiDONE 0.25 MG (RisperDAL) TAB PO SCH ×2 (10:13→22:02)
[2017-07-25] MEDS: LOSARTAN 25 MG (COZAAR) TAB PO SCH (10:13)
[2017-07-25] MEDS: BUMETANIDE 1 MG (BUMEX) TAB PO SCH (10:13)
[2017-07-25] MEDS: SENNOSIDES 8.6 MG (SENOKOT) TAB PO PRN (10:14)
[2017-07-25] MEDS: PANTOPRAZOLE 40 MG/10 ML (PROTONIX) VIAL IV SCH (10:14)
[2017-07-25] MEDS: D5W IV SCH ×2 (10:15→22:02)
[2017-07-25] MEDS: CEFEPIME IV SCH ×2 (10:15→22:02)
--- NOTE | 2017-07-25 10:29 | Progress Note-Hospitalist ---
Subjective HPI/CC On Admission Date Seen by Provider: Jul 25, 2017 Time Seen by Provider: 09:50 Mr. 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 Initially sputum was clear but then it became colored. He increase his prednisone from 20 mg to 40 mg daily and presented to my office on the . There he did have significant wheezing but was maintaining saturations on room air 95-96 percent. He did not wish to be admitted to the hospital at that time so he was discharged on Levaquin. He has a past history of Pseudomonas that was pansensitive cultured from a venous insufficiency ulcer but also required hyperbaric oxygen therapy on his right lower extremity. It has been improving through wound care but at one point was quite large and he still has a significant area of skin breakdown although he does have pink granulation tissue no increase in pain and they have been pleased as of late with wound healing. He called my office the afternoon of the reporting the onset of severe left-sided chest pain worse with breathing worse with cough that actually followed a paroxysm of cough. It was too painful to take deep breaths and he was feeling more short of breath. Sputum culture obtained as an outpatient was growing Pseudomonas on admission but sensitivities were not yet available. He is at high risk for progression to overt respiratory failure and was admitted to the intensive care unit for close monitoring and further therapeutics. Past medical history is most significant for Churg-Nils tenting as pulmonary hemorrhage in 2001. Other than prednisone his only other medication is IVIG. He has a history of disseminated histoplasmosis for which she has been on voriconazole for the past several years continues to have elevated androgen levels and urine and blood. They have been controlled however with chronic suppressive voriconazole therapy. He follows at for his pulmonary and infectious disease issues. 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 He has been on Forteo as of late but I did have concerns over possible cough related rib fracture considering this history. Subjective/Events-last exam patient had a rough day yesterday secondary to back pain despite morphine and Valium. He finally did get some relief from IV Norflex. He was starting to fatigue on pressure support by the end of the day. The goal for today is to allow him to rest and resume pressure support trial with the possibility of extubation tomorrow. He is sedated during the evaluation today. Objective Exam Vital Signs Vital Sign - Last 12Hours 07/19/17 00:00 Temp 97.3 Pulse 83 Resp 32 B/P (MAP) 140/80 (100) Pulse Ox 98 O2 Delivery NIV Bilevel O2 Flow Rate 40.00 FiO2 45 Capillary Refill : Less Than 3 Seconds General Appearance: No Apparent Distress, Chronically ill Respiratory: Other (anterior rales noted on right diminished breath sounds on right and to a lesser extent the left. No wheezing or rhonchi are noted. Left chest is relatively clear.) Cardiovascular: Regular Rate, Rhythm, No Edema, No Gallop, No JVD, No Murmur, Normal Peripheral Pulses Gastrointestinal: Normal Bowel Sounds, No Organomegaly, No Pulsatile Mass, Non Tender, Soft Skin: Pallor Results/Procedures Lab Laboratory Tests 07/25/17 04:30 Assessment/Plan Assessment and Plan Assess & Plan/Chief Complaint 1. Pseudomonas bronchitis with acute exacerbation of underlying lung disease. Pseudomonas on previous outpatient culture from last Friday also growing Enterobacter both sensitive to cefepime. repeat ET tube aspirate from the revealing normal jae only. BAL cultures for bacteria and fungus from the pending.. Secondary respiratory failure improved patient tolerating pressure support trial well thus far with improvement in ABGs down to 40 percent FiO2.. 2.Churg-Kunal/EGPA acute flare doubtful continue his monthly IVIG and considering number 1 higher dose Solu-Medrol taper Solu-Medrol when reactive airways show signs of improvement. 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 sugars 250 range on 20 of Levemir twice a day however Solu-Medrol is being tapered will increase dose slightly to 25 twice a day 4. Left chest wall pain favor muscle spasm as it is a little more diffuse than one would expect for occult rib fracture as well as minimal improvement on morphine will add IV Norflex patient warned about sedation continue O2 sat monitoring continuous. 5. Slowly increasing BUN and creatinine compatible with relative intravascular volume depletion improving likely due to improved oxygenation status. Complex medical management. 6. Impending malnutrition enteral feeding being initiated with free water boluses. ERIC ADAM MD Jul 25, 2017 10:29
--- NOTE | 2017-07-25 12:25 | Diagnostic Imaging Report ---
INDICATION: Ventilator support. TIME OF EXAM: 12:14 p.m. Correlation is made with prior study from earlier the same day. FINDINGS: The endotracheal tube remains in good position above the cortez. NG tube and PICC line remain in place. Right hemidiaphragm remains elevated. Bibasilar infiltrates or atelectasis are unchanged. IMPRESSION: Stable chest since earlier the same day. Dictated by: Dictated on workstation # [id number]
--- NOTE | 2017-07-25 16:35 | Wound Care Progress Note ---
Subjective Subjective Subjective/Events-last exam 62 year old male with 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vasculitis, pneumonia, and respiratory failure. R leg wounds remain clean and healing by nurses report. The dressings are not disturbed at this time, as he has just had a dressing change. No change to sound treatment. Objective Exam Last Set of Vital Signs Vital Signs Date Time Temp Pulse Resp B/P (MAP) Pulse Ox O2 Delivery O2 Flow Rate FiO2 07/25/17 16:09 67 24 91 50 07/25/17 16:05 148/59 Mechanical Ventilator 50.00 07/25/17 12:00 98.5 Capillary Refill : Less Than 3 Seconds I&O Intake and Output 07/25/17 00:00 Intake Total 1442 ml Output Total 3475 ml Balance -2033 ml Intake Oral 0 ml IV Total 260 ml Tube Feeding 682 ml Other 500 ml Output Urine Total 3475 ml Results Lab Laboratory Tests 07/24/17 18:51: Glucometer 154H 07/24/17 20:40: Blood Gas Puncture Site ARTLINE, Blood Gas Patient Temperature 98.0, Arterial Blood pH 7.37, Arterial Blood Partial Pressure CO2 51H, Arterial Blood Partial Pressure O2 79, Arterial Blood HCO3 29H, Arterial Blood Total CO2 30.5, Arterial Blood Oxygen Saturation 97, Arterial Blood Base Excess 3.9H, Jamil Test ARTLINE, Blood Gas Ventilator Setting YES, Blood Gas Inspired Oxygen 50% 07/25/17 00:07: Glucometer 205H 07/25/17 04:30: Blood Gas Puncture Site LEFT ARTLINE, Blood Gas Patient Temperature 98.2, Arterial Blood pH 7.41, Arterial Blood Partial Pressure CO2 45, Arterial Blood Partial Pressure O2 67L, Arterial Blood HCO3 28H, Arterial Blood Total CO2 29.5 , Arterial Blood Oxygen Saturation 95, Arterial Blood Base Excess 3.7H, Jamil Test ART LINE, Blood Gas Ventilator Setting YES, Blood Gas Inspired Oxygen 50%, White Blood Count 8.2, Red Blood Count 2.89L, Hemoglobin 8.0L, Hematocrit 26L, Mean Corpuscular Volume 91, Mean Corpuscular Hemoglobin 28, Mean Corpuscular Hemoglobin Concent 30L, Red Cell Distribution Width 16.1H, Platelet Count 146, Mean Platelet Volume 10.7H, Neutrophils (%) (Auto) 87H, Lymphocytes (%) (Auto) 3L, Monocytes (%) (Auto) 10, Eosinophils (%) (Auto) 0, Basophils (%) (Auto) 0, Neutrophils # (Auto) 7.1, Lymphocytes # (Auto) 0.2L, Monocytes # (Auto) 0.8, Eosinophils # (Auto) 0.0, Basophils # (Auto) 0.0, Sodium Level 145, Potassium Level 3.7, Chloride Level 108H, Carbon Dioxide Level 24, Anion Gap 13, Blood Urea Nitrogen 73H, Creatinine 1.24, Estimat Glomerular Filtration Rate 59, BUN/ Creatinine Ratio 59, Glucose Level 258H, Calcium Level 8.6, Phosphorus Level 3.7 , Magnesium Level 2.5H 07/25/17 08:20: Blood Gas Puncture Site LEFT RADIAL, Blood Gas Patient Temperature 98.4, Arterial Blood pH 7.38, Arterial Blood Partial Pressure CO2 48H, Arterial Blood Partial Pressure O2 93, Arterial Blood HCO3 27, Arterial Blood Total CO2 28.8, Arterial Blood Oxygen Saturation 98, Arterial Blood Base Excess 2.7H, Jamil Test POSITIVE, Blood Gas Ventilator Setting YES, Blood Gas Inspired Oxygen 60% 07/25/17 12:53: Glucometer 308H Microbiology 07/24/17 Gram Stain - Final, Resulted 07/24/17 Bronchial Culture, Resulted Pending 07/24/17 Fungal Culture, Resulted Pending MIKAYLA LOPEZ MD Jul 25, 2017 16:35
[2017-07-25] MEDS: ENOXAPARIN 40 MG/0.4 ML (LOVENOX) SYR SC SCH (18:34)
[2017-07-25] MEDS: NS IV 1000 ML 1,000 ML IV SCH (18:35)
[2017-07-25] MEDS: guaiFENesin/DM (ROBITUSSIN DM) 10 ML UDC PO PRN (22:01)
[2017-07-26] VITALS (30 sets, daily range): BP systolic 111–195; BP diastolic 52–74
[2017-07-26] MEDS: RT-ALBUTEROL/IPRATROPIUM 3 ML (DUONEB) VIAL IH SCH ×12 (00:03→22:52)
[2017-07-26] MEDS: inSUlin (REGULAR) HUMAN 1 UNIT/0.01 ML (CHARGE PER UNIT) SC SCH ×4 (00:03→18:02)
[2017-07-26] MEDS: aCETylcysteine 20% (MUCOMYST) 30ML SOLN VIAL INH SCH ×6 (02:11→22:52)
[2017-07-26 04:47] LABS: ABG BASE EXCESS 2.5 MMOL/L (-2.5-2.5); ABG OXYGEN SATURATION 99 % (94-100); ABG PCO2 43 MMHG (35-45); ABG PH 7.41 (7.37-7.43); ABG PO2 102 MMHG (79-93); ABG TCO2 28.3 MMOL/L (21.0-31.0)
[2017-07-26 04:48] LABS: ALLENS TEST ART LINE; INSPIRED O2 45%; PATIENT TEMP 97.5; VENTILATOR YES
[2017-07-26] MEDS: DEXMEDETOMIDINE IV SCH ×2 (04:48)
[2017-07-26] MEDS: NS IV SCH ×2 (04:48)
[2017-07-26 04:52] LABS: BASOPHILS % (AUTO) 0 % (0-10); EOSINOPHILS % (AUTO) 0 % (0-10); HEMATOCRIT 26 % (40-54); HEMOGLOBIN 7.8 G/DL (13.3-17.7); LYMPHOCYTES # (AUTO) 0.2 X 10^3 (1.0-4.0); LYMPHOCYTES % (AUTO) 2 % (12-44); MEAN CORPUSCULAR HEMOGLOBIN 27 PG (25-34); MEAN CORPUSCULAR HGB CONC 30 G/DL (32-36); MEAN CORPUSCULAR VOLUME 91 FL (80-99); MEAN PLATELET VOLUME 10.7 FL (7.4-10.4); MONOCYTES # (AUTO) 0.8 X 10^3 (0.0-1.0); MONOCYTES % (AUTO) 10 % (0-12); NEUTROPHILS # (AUTO) 6.9 X 10^3 (1.8-7.8); NEUTROPHILS % (AUTO) 88 % (42-75); PLATELET COUNT 158 10^3/uL (130-400); RED BLOOD COUNT 2.88 10^6/uL (4.35-5.85); RED CELL DISTRIBUTION WIDTH 16.3 % (10.0-14.5); WHITE BLOOD COUNT 7.8 10^3/uL (4.3-11.0)
[2017-07-26 05:05] LABS: CALCIUM 8.6 MG/DL (8.5-10.1); CREATININE SERUM 1.44 MG/DL (0.60-1.30); MAGNESIUM 2.4 MG/DL (1.8-2.4); PHOSPHORUS 3.2 MG/DL (2.3-4.7); POTASSIUM 3.8 MMOL/L (3.6-5.0)
--- NOTE | 2017-07-26 05:28 | Pulmonary Progress Note ---
Subjective Time Seen by Provider: 05:33 Subjective/Events-last exam pt is doing well on ventilator. Pt failed extubation yesterday. Exam Exam Vital Signs Date Time Temp Pulse Resp B/P (MAP) Pulse Ox O2 Delivery O2 Flow Rate FiO2 07/26/17 04:16 97.6 Mechanical Ventilator 45.00 07/26/17 04:05 90 18 97 07/26/17 04:00 96 27 171/66 (101) 97 Mechanical Ventilator 45.00 07/26/17 04:00 Mechanical Ventilator 45 07/26/17 03:49 84 20 97 45 07/26/17 03:00 96 25 192/74 (113) 96 Mechanical Ventilator 45.00 07/26/17 02:12 73 16 97 45 07/26/17 02:00 72 14 142/62 (88) 98 Mechanical Ventilator 45.00 07/26/17 01:00 73 14 143/61 (88) 98 Mechanical Ventilator 45.00 07/26/17 01:00 72 07/26/17 00:07 98.4 Mechanical Ventilator 45.00 07/26/17 00:03 71 16 98 45 07/26/17 00:00 Mechanical Ventilator 50 07/26/17 00:00 71 16 142/61 (88) 98 Mechanical Ventilator 45.00 07/25/17 23:00 70 16 133/57 (82) 97 Mechanical Ventilator 45.00 07/25/17 22:57 69 07/25/17 22:21 67 16 98 45 07/25/17 22:00 68 17 150/64 (92) 98 Mechanical Ventilator 45.00 07/25/17 21:00 65 20 146/62 (90) 97 Mechanical Ventilator 45.00 07/25/17 20:49 66 16 98 50 07/25/17 20:00 Mechanical Ventilator 50 07/25/17 20:00 64 13 138/60 (86) 97 Mechanical Ventilator 50.00 07/25/17 19:30 97.5 Mechanical Ventilator 50.00 07/25/17 19:00 69 07/25/17 19:00 67 15 146/59 (88) 98 Mechanical Ventilator 50.00 07/25/17 18:11 66 16 97 50 07/25/17 18:00 65 16 168/69 (102) 99 Mechanical Ventilator 50.00 07/25/17 17:00 65 10 157/67 (97) 97 Mechanical Ventilator 50.00 07/25/17 16:09 67 24 91 50 07/25/17 16:05 66 148/59 Mechanical Ventilator 50.00 07/25/17 16:00 71 24 157/61 (93) 98 Mechanical Ventilator 50.00 07/25/17 16:00 Mechanical Ventilator 50 07/25/17 16:00 97.0 Mechanical Ventilator 50.00 07/25/17 15:00 65 14 138/57 (84) 93 Mechanical Ventilator 55.00 07/25/17 14:28 70 16 94 50 07/25/17 14:00 64 12 141/57 (85) 94 Mechanical Ventilator 55.00 07/25/17 13:00 65 07/25/17 13:00 66 14 136/56 (82) 94 Mechanical Ventilator 55.00 07/25/17 12:23 65 17 95 55 07/25/17 12:00 65 13 136/56 (82) 93 Mechanical Ventilator 55.00 07/25/17 12:00 98.5 Mechanical Ventilator 55.00 07/25/17 12:00 Mechanical Ventilator 55 07/25/17 11:00 Mechanical Ventilator 55.00 07/25/17 11:00 68 14 128/54 (78) 95 Mechanical Ventilator 55.00 07/25/17 10:55 68 16 95 60 07/25/17 10:12 70 127/53 Mechanical Ventilator 60.00 07/25/17 10:00 69 15 125/53 (77) 95 Mechanical Ventilator 60.00 07/25/17 09:00 74 17 125/52 (76) 94 Mechanical Ventilator 60.00 07/25/17 08:43 81 23 94 60 07/25/17 08:00 97.9 Mechanical Ventilator 60.00 07/25/17 08:00 Mechanical Ventilator 60 07/25/17 08:00 73 17 136/52 (80) 95 Mechanical Ventilator 60.00 07/25/17 07:41 82 23 95 60 07/25/17 07:00 78 19 137/51 (79) 93 Mechanical Ventilator 60.00 07/25/17 07:00 78 07/25/17 06:18 70 18 92 50 07/25/17 06:00 73 18 130/49 (76) 91 Mechanical Ventilator 60.00 07/25/17 05:45 79 21 139/51 (80) 94 Mechanical Ventilator 60.00 I & O 07/26/17 07:00 Intake Total 1300 ml Output Total 1800 ml Balance -500 ml General Appearance: No Apparent Distress, Chronically ill HEENT: PERRL/EOMI, Normal ENT Inspection Neck: Full Range of Motion, Normal Inspection, Non Tender, Supple, Carotid Bruit Respiratory: Other (anterior rales noted on right diminished breath sounds on right and to a lesser extent the left. No wheezing or rhonchi are noted. Left chest is relatively clear.) Cardiovascular: Regular Rate, Rhythm, No Edema, No Gallop, No JVD, No Murmur, Normal Peripheral Pulses Capillary Refill: Less Than 3 Seconds Gastrointestinal: normal bowel sounds, soft, no organomegaly, no pulsatile mass Extremity: Other (Plus right pedal edema 1+ left 2+ in the left upper extremity 1+ right decreasing) Neurologic/Psychiatric: Alert Skin: Pallor Lymphatic: No Adenopathy Results Lab Laboratory Tests 07/24/17 05:25 07/25/17 04:30 07/26/17 04:40 Assessment/Plan Assessment/Plan Acute respiratory failure -Failed weaning yesterday secondary to copious amounts of secretions -Pt is doing well on vent. Hold diprivan during the day and change vent to SIMV/PS during the day. 7AM- 1900 Hold diprivan Restart diprivan from 1900-7AM and back to AC -SVNs --Change SVNs to Q2 -Solumedrol 40 Q 6 -TF pulmicare and consult dietary -Precedex gtt -Fentanyl gtt 120mcg/hr -Morphine PRN Acute renal failure -Hold Bumex for today Hypernatremia -change to 1/2 NS -Hold Bumex Anemia -cont to montior -Check PTT, PT, INR - RN has noted some extensive bruising Anxiety -Risperdal 1mg BID Back spasms -hx Churg Kunal -Pt follows with [facility] pul[facility]/infectious disease Chronic elevation of right diaphragm with atelectasis pneumonia with Pseudomonas -Continue Cefepime until Friday and reevaluate. Immunosuppression hx Debility -consult PT/OT -hx of stable BETHANY nodule per CT scan will attempt weaning/extubation today. 233 Clinical Quality Measures DVT/VTE Risk/Contraindication: Risk Factor Score Per Nursin RFS Level Per Nursing on Admit: 3=High MEDINA VILLEGAS DO Jul 26, 2017 05:28
[2017-07-26] MEDS: ORPHENADRINE 60 MG/2 ML (NORFLEX) AMP IV SCH ×3 (05:38→23:27)
[2017-07-26] MEDS: fentaNYL INJECTION 1,250 MCG in NS (IVPB) 250 ML IV SCH (05:38)
[2017-07-26] MEDS: DILTIAZEM 60 MG (CARDIZEM) TAB PO SCH ×3 (05:39→19:19)
[2017-07-26] MEDS: HYDROcodone/APAP 10 MG/325 MG (LORTAB) TAB PO PRN ×4 (05:39→21:15)
[2017-07-26] MEDS: MAGNESIUM 1 GM/100 ML IVPB 100 ML IV SCH (06:07)
[2017-07-26] MEDS: KCL 20 MEQ TAB (K-DUR) PO SCH (06:07)
[2017-07-26] MEDS: POTASSIUM CL 10MEQ/50ML IVPB 50 ML IV SCH (06:07)
[2017-07-26] MEDS: RT-BUDESONIDE NEBS 0.5 MG/2ML (PULMICORT) AMP INH SCH ×2 (06:11→20:31)
[2017-07-26] MEDS: 1/2 NS IV SOLUTION 1,000 ML IV SCH ×2 (06:18→16:22)
[2017-07-26 06:28] LABS: ABG BASE EXCESS 1.8 MMOL/L (-2.5-2.5); ABG OXYGEN SATURATION 98 % (94-100); ABG PCO2 43 MMHG (35-45); ABG PO2 85 MMHG (79-93); ABG TCO2 27.6 MMOL/L (21.0-31.0); ALLENS TEST ART LINE; INSPIRED O2 45%; PATIENT TEMP 97.8; VENTILATOR YES
[2017-07-26] MEDS: hydrALAZINE (APESOLINE) 20 MG/ML VIAL IV PRN ×2 (06:47→15:30)
[2017-07-26 07:13] LABS: INR 1.1 (0.8-1.4); PROTHROMBIN TIME PATIENT 13.8 SEC (12.2-14.7)
[2017-07-26] MEDS ORDERED: SALIVA STIMULANT MOUTH SPRAY (BIOTENE) 1.5 OZ MM PRN (08:45)
[2017-07-26] MEDS ORDERED: inSUlin DETERMIR 1 UNIT/0.01 ML (LEVEMIR) CHARGE PER UNIT SQ SCH (09:00)
[2017-07-26] MEDS: PANTOPRAZOLE 40 MG/10 ML (PROTONIX) VIAL IV SCH (09:34)
[2017-07-26] MEDS: CEFEPIME IV SCH ×2 (09:34→21:03)
[2017-07-26] MEDS: D5W IV SCH ×2 (09:34→21:03)
[2017-07-26] MEDS: methylPREDNISolone 40 MG/ML (Solu-MEDROL) VIAL IV SCH ×2 (09:34→21:03)
[2017-07-26] MEDS: VORICONAZOLE 200 MG TAB (VFEND) NON-FORMULARY PO SCH ×2 (09:35→20:34)
[2017-07-26] MEDS: risperiDONE 0.25 MG (RisperDAL) TAB PO SCH ×2 (09:39→21:14)
[2017-07-26] MEDS: LOSARTAN 25 MG (COZAAR) TAB PO SCH (09:39)
[2017-07-26] MEDS: SENNOSIDES 8.6 MG (SENOKOT) TAB PO PRN (09:39)
--- NOTE | 2017-07-26 10:29 | Physical Therapy Progress Note ---
Therapy Progress Note Patient is currently remaining on ventilator with failed attempt to extubate yesterday. PT will continue to monitor patient's medical status. LYLA BLOUNT PT Jul 26, 2017 10:29
--- NOTE | 2017-07-26 10:35 | Diagnostic Imaging Report ---
INDICATION: Shortness of breath COMPARISON: 07/25/2017 FINDINGS: Single view of the chest demonstrates stable support lines. There is increasing atelectasis. There is stable atelectasis and infiltrate in both bases. Small effusion remains in the right base. The heart remains enlarged with slight central vascular congestion. There is no pneumothorax. IMPRESSION: 1. Stable support lines without pneumothorax. 2. Unchanged aeration lungs. Dictated by: Dictated on workstation # [id number]
--- NOTE | 2017-07-26 12:46 | Progress Note-Hospitalist ---
Subjective HPI/CC On Admission Date Seen by Provider: Jul 26, 2017 Time Seen by Provider: 09:00 Mr. 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 Initially sputum was clear but then it became colored. He increase his prednisone from 20 mg to 40 mg daily and presented to my office on the . There he did have significant wheezing but was maintaining saturations on room air 95-96 percent. He did not wish to be admitted to the hospital at that time so he was discharged on Levaquin. He has a past history of Pseudomonas that was pansensitive cultured from a venous insufficiency ulcer but also required hyperbaric oxygen therapy on his right lower extremity. It has been improving through wound care but at one point was quite large and he still has a significant area of skin breakdown although he does have pink granulation tissue no increase in pain and they have been pleased as of late with wound healing. He called my office the afternoon of the reporting the onset of severe left-sided chest pain worse with breathing worse with cough that actually followed a paroxysm of cough. It was too painful to take deep breaths and he was feeling more short of breath. Sputum culture obtained as an outpatient was growing Pseudomonas on admission but sensitivities were not yet available. He is at high risk for progression to overt respiratory failure and was admitted to the intensive care unit for close monitoring and further therapeutics. Past medical history is most significant for Churg-Nils tenting as pulmonary hemorrhage in 2001. Other than prednisone his only other medication is IVIG. He has a history of disseminated histoplasmosis for which she has been on voriconazole for the past several years continues to have elevated androgen levels and urine and blood. They have been controlled however with chronic suppressive voriconazole therapy. He follows at for his pulmonary and infectious disease issues. 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 He has been on Forteo as of late but I did have concerns over possible cough related rib fracture considering this history. Subjective/Events-last exam patient extubated on BiPAP and appears to be doing well. He is hoarse but communicating via gestures and via writing. He does not appear to be in pulmonary distress and reports no significant back spasms since yesterday. Objective Exam Vital Signs Vital Sign - Last 12Hours 07/20/17 07/20/17 00:00 00:10 Temp 97.7 Pulse 77 Resp 15 B/P (MAP) 133/71 (91) Pulse Ox 95 O2 Delivery NIV Bilevel O2 Flow Rate 35.00 FiO2 35 Capillary Refill : Less Than 3 Seconds General Appearance: No Apparent Distress, Chronically ill Respiratory: No Accessory Muscle Use, No Respiratory Distress, Other (9 rales right chest anteriorly there is diminished breath sounds in the right base minimal rhonchi and no wheezing improved from yesterday.) Cardiovascular: Regular Rate, Rhythm, No Edema, No Gallop, No JVD, No Murmur, Normal Peripheral Pulses Gastrointestinal: Normal Bowel Sounds, No Organomegaly, No Pulsatile Mass, Non Tender, Soft Extremity: Other (extremity edema unchanged from yesterday) Neurologic/Psychiatric: Alert Results/Procedures Lab Laboratory Tests 07/26/17 04:40 Assessment/Plan Assessment and Plan Assess & Plan/Chief Complaint 1. Pseudomonas bronchitis with acute exacerbation of underlying lung disease with secondary respiratory failure. patient now off mechanical ventilation tolerating BiPAP. Pseudomonas on previous outpatient culture from last Friday also growing Enterobacter both sensitive to cefepime. repeat ET tube aspirate from the revealing normal jae only. BAL cultures for bacteria and fungus from the pending.. Secondary respiratory failure improved patient tolerating pressure support trial well thus far with improvement in ABGs down to 40 percent FiO2.. 2.Churg-Kunal/EGPA acute flare doubtful continue his monthly IVIG and considering number 1 higher dose Solu-Medrol taper Solu-Medrol when reactive airways show signs of improvement. 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 4. Left chest wall pain favor muscle spasm as it is a little more diffuse than one would expect for occult rib fracture as well as minimal improvement on morphine will add IV Norflex patient warned about sedation continue O2 sat monitoring continuous. 5. Slowly increasing BUN and creatinine compatible with relative intravascular volume depletion improving likely due to improved oxygenation status. Complex medical management. ERIC ADAM MD Jul 26, 2017 12:46
[2017-07-26] MEDS: ANTACID SUSP 30 ML UDC (MYLANTA) PO PRN (13:18)
[2017-07-26] MEDS: meTOprolol 5 MG/5 ML (LOPRESSOR) VIAL IV PRN ×2 (13:47→21:02)
[2017-07-26] MEDS ORDERED: HALOPERIDOL 5 MG/ML (HALDOL) AMP IV ONE (17:00)
[2017-07-26] MEDS: HALOPERIDOL 5 MG/ML (HALDOL) AMP IV PRN (18:01)
[2017-07-26] MEDS ORDERED: LORazepam INJ 2 MG/ML (ATIVAN) VIAL IVP PRN (19:00)
--- NOTE | 2017-07-26 19:18 | Diagnostic Imaging Report ---
INDICATION: Abdominal distention. COMPARISON: None available. FINDINGS: Examination is very limited due to patient's large body habitus. Allowing for this, there are no dilated loops of bowel that would suggest bowel obstruction. Multiple gas-filled nondilated loops of small bowel are present in the mid to lower abdomen. No evidence of free intraperitoneal air, though evaluation is very limited by patient's body habitus and portable technique. Patchy basilar pulmonary opacities are noted. IMPRESSION: 1. Nonobstructive bowel gas pattern on this limited examination. Dictated by: Dictated on workstation # [id number]
[2017-07-26] MEDS: ENOXAPARIN 40 MG/0.4 ML (LOVENOX) SYR SC SCH (19:19)
[2017-07-26] MEDS: inSUlin DETERMIR 1 UNIT/0.01 ML (LEVEMIR) CHARGE PER UNIT SQ SCH (21:29)
[2017-07-27] VITALS (27 sets, daily range): BP systolic 138–204; BP diastolic 43–82
[2017-07-27] MEDS: DILTIAZEM 60 MG (CARDIZEM) TAB PO SCH ×4 (00:21→16:41)
[2017-07-27] MEDS: hydrALAZINE (APESOLINE) 20 MG/ML VIAL IV PRN ×2 (00:21→05:18)
[2017-07-27] MEDS: inSUlin (REGULAR) HUMAN 1 UNIT/0.01 ML (CHARGE PER UNIT) SC SCH ×4 (00:21→15:38)
[2017-07-27] MEDS: RT-ALBUTEROL/IPRATROPIUM 3 ML (DUONEB) VIAL IH SCH ×12 (01:03→23:05)
[2017-07-27] MEDS: meTOprolol 5 MG/5 ML (LOPRESSOR) VIAL IV PRN ×3 (02:39→16:42)
[2017-07-27] MEDS: HYDROcodone/APAP 10 MG/325 MG (LORTAB) TAB PO PRN ×3 (02:40→21:24)
[2017-07-27] MEDS: aCETylcysteine 20% (MUCOMYST) 30ML SOLN VIAL INH SCH ×6 (02:50→23:05)
[2017-07-27 04:25] LABS: BASOPHILS % (AUTO) 0 % (0-10); EOSINOPHILS % (AUTO) 0 % (0-10); HEMATOCRIT 29 % (40-54); HEMOGLOBIN 8.7 G/DL (13.3-17.7); LYMPHOCYTES # (AUTO) 0.3 X 10^3 (1.0-4.0); LYMPHOCYTES % (AUTO) 3 % (12-44); MEAN CORPUSCULAR HEMOGLOBIN 27 PG (25-34); MEAN CORPUSCULAR HGB CONC 30 G/DL (32-36); MEAN CORPUSCULAR VOLUME 91 FL (80-99); MONOCYTES # (AUTO) 0.7 X 10^3 (0.0-1.0); MONOCYTES % (AUTO) 7 % (0-12); NEUTROPHILS # (AUTO) 9.1 X 10^3 (1.8-7.8); NEUTROPHILS % (AUTO) 90 % (42-75); PLATELET COUNT 163 10^3/uL (130-400); RED BLOOD COUNT 3.21 10^6/uL (4.35-5.85); WHITE BLOOD COUNT 10.2 10^3/uL (4.3-11.0)
[2017-07-27 04:25] LABS: ABG BASE EXCESS 2.3 MMOL/L (-2.5-2.5); ABG OXYGEN SATURATION 99 % (94-100); ABG PCO2 42 MMHG (35-45); ABG PH 7.42 (7.37-7.43); ABG PO2 88 MMHG (79-93); ABG TCO2 27.8 MMOL/L (21.0-31.0)
[2017-07-27 04:27] LABS: ALLENS TEST ART LINE; INSPIRED O2 40%; PATIENT TEMP 97.7; VENTILATOR NO
[2017-07-27 04:44] LABS: CALCIUM 8.9 MG/DL (8.5-10.1); CREATININE SERUM 1.35 MG/DL (0.60-1.30); MAGNESIUM 2.6 MG/DL (1.8-2.4); PHOSPHORUS 3.1 MG/DL (2.3-4.7); POTASSIUM 3.9 MMOL/L (3.6-5.0)
[2017-07-27] MEDS: ANTACID SUSP 30 ML UDC (MYLANTA) PO PRN (05:18)
[2017-07-27] MEDS: MAGNESIUM 1 GM/100 ML IVPB 100 ML IV SCH (06:00)
[2017-07-27] MEDS: POTASSIUM CL 10MEQ/50ML IVPB 50 ML IV SCH (06:00)
[2017-07-27] MEDS: KCL 20 MEQ TAB (K-DUR) PO SCH (06:00)
[2017-07-27] MEDS: ORPHENADRINE 60 MG/2 ML (NORFLEX) AMP IV SCH ×3 (06:40→22:12)
[2017-07-27] MEDS: LOSARTAN 25 MG (COZAAR) TAB PO SCH (08:29)
[2017-07-27] MEDS: risperiDONE 0.25 MG (RisperDAL) TAB PO SCH ×2 (08:29→21:24)
[2017-07-27] MEDS: methylPREDNISolone 40 MG/ML (Solu-MEDROL) VIAL IV SCH ×2 (08:30→21:23)
[2017-07-27] MEDS: PANTOPRAZOLE 40 MG/10 ML (PROTONIX) VIAL IV SCH (08:30)
[2017-07-27] MEDS: VORICONAZOLE 200 MG TAB (VFEND) NON-FORMULARY PO SCH ×2 (08:30→20:05)
[2017-07-27] MEDS: CEFEPIME IV SCH ×2 (08:30→21:23)
[2017-07-27] MEDS: D5W IV SCH ×2 (08:30→21:23)
[2017-07-27] MEDS: inSUlin DETERMIR 1 UNIT/0.01 ML (LEVEMIR) CHARGE PER UNIT SQ SCH ×3 (08:33→21:33)
[2017-07-27] MEDS ORDERED: POLYETHYLENE GLYCOL 17 GM (MIRALAX) PACK PO NR (09:42)
--- NOTE | 2017-07-27 09:44 | Diagnostic Imaging Report ---
INDICATION: Shortness of breath. Extubated. COMPARISON: 07/26/2017 FINDINGS: A single view of the chest demonstrates removal of the NG tube and the ET tube. There are persistent but decreased interstitial infiltrates in both lungs. There is continued volume loss in the right hemithorax. The heart remains prominent. There is no pneumothorax. The PICC line is stable. IMPRESSION: 1. Extubation without pneumothorax. 2. Improved aeration of both lungs. Dictated by: Dictated on workstation # [id number]
[2017-07-27] MEDS: RT-BUDESONIDE NEBS 0.5 MG/2ML (PULMICORT) AMP INH SCH ×2 (10:57→20:18)
--- NOTE | 2017-07-27 13:03 | Progress Note-Hospitalist ---
Subjective HPI/CC On Admission Date Seen by Provider: Jul 27, 2017 Time Seen by Provider: 07:45 Mr. 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 Initially sputum was clear but then it became colored. He increase his prednisone from 20 mg to 40 mg daily and presented to my office on the . There he did have significant wheezing but was maintaining saturations on room air 95-96 percent. He did not wish to be admitted to the hospital at that time so he was discharged on Levaquin. He has a past history of Pseudomonas that was pansensitive cultured from a venous insufficiency ulcer but also required hyperbaric oxygen therapy on his right lower extremity. It has been improving through wound care but at one point was quite large and he still has a significant area of skin breakdown although he does have pink granulation tissue no increase in pain and they have been pleased as of late with wound healing. He called my office the afternoon of the reporting the onset of severe left-sided chest pain worse with breathing worse with cough that actually followed a paroxysm of cough. It was too painful to take deep breaths and he was feeling more short of breath. Sputum culture obtained as an outpatient was growing Pseudomonas on admission but sensitivities were not yet available. He is at high risk for progression to overt respiratory failure and was admitted to the intensive care unit for close monitoring and further therapeutics. Past medical history is most significant for Churg-Nils tenting as pulmonary hemorrhage in 2001. Other than prednisone his only other medication is IVIG. He has a history of disseminated histoplasmosis for which she has been on voriconazole for the past several years continues to have elevated androgen levels and urine and blood. They have been controlled however with chronic suppressive voriconazole therapy. He follows at for his pulmonary and infectious disease issues. 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 He has been on Forteo as of late but I did have concerns over possible cough related rib fracture considering this history. Subjective/Events-last exam patient still dependent on BiPAP but less short of breath. He reports epigastric pain. He is passing gas but no stool. KUB was obtained revealing gas throughout without evidence for obstruction. Patient denies chills or fever with decreasing for the most part clear sputum production. Objective Exam Vital Signs Vital Sign - Last 12Hours 07/21/17 00:00 Temp 98.9 Pulse 88 Resp 28 B/P (MAP) 148/73 (98) Pulse Ox 94 O2 Delivery Vapotherm O2 Flow Rate 30.00 30.00 FiO2 30 Capillary Refill : Less Than 3 Seconds General Appearance: Anxious, Mild Distress Respiratory: Accessory Muscle Use (mild), Other (scattered rhonchi stable decrease in breath sounds in the right base no wheezing noted.) Cardiovascular: Regular Rate, Rhythm, No Edema, No Gallop, No JVD, No Murmur, Normal Peripheral Pulses Extremity: Other (stable 2+ edema of all extremities extremities are warm with normal capillary refill) Neurologic/Psychiatric: Alert Results/Procedures Lab Laboratory Tests 07/27/17 04:15 Assessment/Plan Assessment and Plan Assess & Plan/Chief Complaint 1. Pseudomonas bronchitis with acute exacerbation of underlying lung disease with secondary respiratory failure. patient now off mechanical ventilation tolerating BiPAP. Pseudomonas on previous outpatient culture from last Friday also growing Enterobacter both sensitive to cefepime. repeat ET tube aspirate from the revealing normal jae only. BAL cultures for bacteria from the again positive for pansensitive pseudomonas fungal cultures pending... .. 2.Churg-Kunal/EGPA acute flare doubtful continue his monthly IVIG and considering number 1 higher dose Solu-Medrol taper Solu-Medrol when reactive airways show signs of improvement. 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 4. Left chest wall pain favor muscle spasm as it is a little more diffuse than one would expect for occult rib fracture as well as minimal improvement on morphine will add IV Norflex patient warned about sedation continue O2 sat monitoring continuous. 5. Slowly increasing BUN and creatinine compatible with relative intravascular volume depletion improving likely due to improved oxygenation status. Complex medical management. 6. Epigastric pain with decreasing white count doubt underlying infectious etiology. We'll continue proton pump inhibitor therapy. KUB did not suggest underlying obstruction ileus favored likely improving as the patient is beginning to pass gas. 7. History of osteoporosis on Forteo will resume injections. ERIC ADAM MD Jul 27, 2017 13:03
[2017-07-27] MEDS: ENOXAPARIN 40 MG/0.4 ML (LOVENOX) SYR SC SCH (16:41)
[2017-07-27] MEDS ORDERED: POLYETHYLENE GLYCOL 17 GM (MIRALAX) PACK PO SCH (21:00)
[2017-07-27] MEDS: 1/2 NS IV SOLUTION 1,000 ML IV SCH (21:30)
[2017-07-28] VITALS (32 sets, daily range): BP systolic 129–188; BP diastolic 37–83
[2017-07-28] MEDS: DILTIAZEM 60 MG (CARDIZEM) TAB PO SCH ×5 (00:17→23:52)
[2017-07-28] MEDS: inSUlin (REGULAR) HUMAN 1 UNIT/0.01 ML (CHARGE PER UNIT) SC SCH ×5 (00:25→23:52)
[2017-07-28] MEDS: RT-ALBUTEROL/IPRATROPIUM 3 ML (DUONEB) VIAL IH SCH ×12 (00:28→23:00)
[2017-07-28] MEDS: aCETylcysteine 20% (MUCOMYST) 30ML SOLN VIAL INH SCH ×6 (02:57→23:00)
[2017-07-28 04:09] LABS: ABG BASE EXCESS 3.4 MMOL/L (-2.5-2.5); ABG OXYGEN SATURATION 98 % (94-100); ABG PCO2 43 MMHG (35-45); ABG PH 7.42 (7.37-7.43); ABG PO2 74 MMHG (79-93); ABG TCO2 28.9 MMOL/L (21.0-31.0)
[2017-07-28 04:11] LABS: BASOPHILS % (AUTO) 0 % (0-10); EOSINOPHILS % (AUTO) 0 % (0-10); HEMATOCRIT 25 % (40-54); HEMOGLOBIN 7.3 G/DL (13.3-17.7); LYMPHOCYTES # (AUTO) 0.3 X 10^3 (1.0-4.0); LYMPHOCYTES % (AUTO) 3 % (12-44); MEAN CORPUSCULAR HEMOGLOBIN 27 PG (25-34); MEAN CORPUSCULAR HGB CONC 29 G/DL (32-36); MEAN CORPUSCULAR VOLUME 92 FL (80-99); MEAN PLATELET VOLUME 10.2 FL (7.4-10.4); MONOCYTES # (AUTO) 0.8 X 10^3 (0.0-1.0); MONOCYTES % (AUTO) 8 % (0-12); NEUTROPHILS # (AUTO) 9.1 X 10^3 (1.8-7.8); NEUTROPHILS % (AUTO) 89 % (42-75); PLATELET COUNT 157 10^3/uL (130-400); RED BLOOD COUNT 2.69 10^6/uL (4.35-5.85); RED CELL DISTRIBUTION WIDTH 16.4 % (10.0-14.5); WHITE BLOOD COUNT 10.1 10^3/uL (4.3-11.0)
[2017-07-28 04:14] LABS: ALLENS TEST ART LINE; INSPIRED O2 35%; PATIENT TEMP 97.9; VENTILATOR NO
[2017-07-28 04:30] LABS: CALCIUM 8.5 MG/DL (8.5-10.1); CREATININE SERUM 1.22 MG/DL (0.60-1.30); MAGNESIUM 2.5 MG/DL (1.8-2.4); PHOSPHORUS 2.7 MG/DL (2.3-4.7); POTASSIUM 4.5 MMOL/L (3.6-5.0)
[2017-07-28] MEDS: HYDROcodone/APAP 10 MG/325 MG (LORTAB) TAB PO PRN ×2 (05:04→20:20)
--- NOTE | 2017-07-28 05:50 | Pulmonary Progress Note ---
Subjective Time Seen by Provider: 07:02 Subjective/Events-last exam pt is requiring BIPAP . Exam Exam Vital Signs Date Time Temp Pulse Resp B/P (MAP) Pulse Ox O2 Delivery O2 Flow Rate FiO2 07/28/17 05:00 93 19 140/46 (77) 97 NIV Bilevel 35.00 07/28/17 04:28 87 18 93 35.00 07/28/17 04:00 97.9 87 17 163/75 (104) 95 NIV Bilevel 35.00 07/28/17 04:00 NIV Bilevel 35 07/28/17 03:00 92 17 155/50 (85) 94 NIV Bilevel 35.00 07/28/17 02:56 92 18 95 35.00 07/28/17 02:00 94 16 144/77 (99) 100 NIV Bilevel 35.00 07/28/17 01:00 95 18 149/48 (81) 97 NIV Bilevel 35.00 07/28/17 01:00 95 07/28/17 00:28 96 26 99 35.00 07/28/17 00:05 98.9 NIV Bilevel 35.00 07/28/17 00:00 93 19 136/42 (73) 97 NIV Bilevel 35.00 07/28/17 00:00 NIV Bilevel 35 07/27/17 23:05 91 18 97 35.00 07/27/17 23:00 94 19 138/43 (74) 97 NIV Bilevel 35.00 07/27/17 22:00 90 17 163/44 (83) 98 NIV Bilevel 35.00 07/27/17 21:00 92 27 168/47 (87) 99 NIV Bilevel 35.00 07/27/17 20:17 88 21 100 40.00 07/27/17 20:00 NIV Bilevel 40 07/27/17 20:00 90 16 165/81 (109) 100 NIV Bilevel 40.00 07/27/17 19:38 97.8 NIV Bilevel 40.00 07/27/17 19:30 92 23 100 40.00 07/27/17 19:00 96 23 175/45 (88) 100 NIV Bilevel 40.00 07/27/17 19:00 96 07/27/17 18:59 100 Vapotherm 25.00 60 07/27/17 18:00 86 22 174/82 (112) 100 NIV Bilevel 40.00 07/27/17 17:00 78 21 166/55 (92) 99 NIV Bilevel 40.00 07/27/17 16:38 79 17 98 40.00 07/27/17 16:00 95 170/79 (109) 96 NIV Bilevel 40.00 07/27/17 16:00 NIV Bilevel 40.00 40 07/27/17 15:33 96 Vapotherm 25.00 60 07/27/17 15:00 105 186/69 (108) 99 NIV Bilevel 40.00 07/27/17 14:00 96 15 162/81 (108) 99 NIV Bilevel 40.00 07/27/17 13:12 85 18 96 40.00 07/27/17 13:00 86 07/27/17 13:00 91 17 160/76 (104) 98 NIV Bilevel 40.00 07/27/17 12:00 97.8 97 NIV Bilevel 40.00 07/27/17 12:00 NIV Bilevel 40.00 40 07/27/17 11:01 87 18 100 40.00 07/27/17 11:00 81 17 196/71 (112) 93 NIV Bilevel 40.00 07/27/17 10:00 84 20 184/64 (104) 99 NIV Bilevel 40.00 07/27/17 09:58 100 Vapotherm 25.00 60 07/27/17 09:15 77 18 96 40.00 07/27/17 09:00 86 23 186/62 (103) 99 NIV Bilevel 40.00 07/27/17 08:00 NIV Bilevel 40.00 40 07/27/17 08:00 75 19 186/64 (104) 97 NIV Bilevel 40.00 07/27/17 07:00 73 18 176/68 (104) 99 NIV Bilevel 40.00 07/27/17 07:00 74 07/27/17 07:00 97.1 86 21 157/74 (101) 96 NIV Bilevel 40.00 07/27/17 06:56 74 24 97 40.00 07/27/17 06:00 82 18 185/59 (101) 100 NIV Bilevel 40.00 I & O 07/28/17 07:00 Intake Total 1160 ml Output Total 1275 ml Balance -115 ml General Appearance: Anxious, Mild Distress HEENT: PERRL/EOMI, Normal ENT Inspection Neck: Full Range of Motion, Normal Inspection, Non Tender, Supple, Carotid Bruit Respiratory: Accessory Muscle Use (mild), Other (scattered rhonchi stable decrease in breath sounds in the right base no wheezing noted.) Cardiovascular: Regular Rate, Rhythm, No Edema, No Gallop, No JVD, No Murmur, Normal Peripheral Pulses Capillary Refill: Less Than 3 Seconds Gastrointestinal: normal bowel sounds, soft, no organomegaly, no pulsatile mass Extremity: Other (stable 2+ edema of all extremities extremities are warm with normal capillary refill) Neurologic/Psychiatric: Alert Skin: Pallor Lymphatic: No Adenopathy Results Lab Laboratory Tests 07/27/17 04:15 07/28/17 04:03 Assessment/Plan Assessment/Plan Acute respiratory failure -SVNs --Change SVNs to Q2 -Solumedrol 40 Q12 -Morphine PRN Acute renal failure - Hypernatremia -change to D5W -Resume Bumex Anemia -cont to montior -Check PTT, PT, INR - RN has noted some extensive bruising Anxiety -Risperdal 1mg BID Back spasms -hx Churg Kunal -Pt follows with [facility] pul[facility]/infectious disease Chronic elevation of right diaphragm with atelectasis pneumonia with Pseudomonas -Cefepime - D/C Immunosuppression hx Debility -consult PT/OT -hx of stable BETHANY nodule per CT scan Advance activity. UP to chair BID. 233 Clinical Quality Measures DVT/VTE Risk/Contraindication: Risk Factor Score Per Nursin RFS Level Per Nursing on Admit: 3=High MEDINA VILLEGAS DO Jul 28, 2017 05:50
[2017-07-28] MEDS: KCL 20 MEQ TAB (K-DUR) PO SCH (06:00)
[2017-07-28] MEDS: POTASSIUM CL 10MEQ/50ML IVPB 50 ML IV SCH (06:00)
[2017-07-28] MEDS: MAGNESIUM 1 GM/100 ML IVPB 100 ML IV SCH (06:00)
[2017-07-28] MEDS: D5W 1000 ML IV SOLUTION 1,000 ML IV SCH (06:04)
[2017-07-28] MEDS: meTOprolol 5 MG/5 ML (LOPRESSOR) VIAL IV PRN ×2 (06:53→13:20)
[2017-07-28] MEDS: ORPHENADRINE 60 MG/2 ML (NORFLEX) AMP IV SCH (07:00)
--- NOTE | 2017-07-28 08:23 | Diagnostic Imaging Report ---
INDICATION: Dyspnea. COMPARISON: 07/27/2017 FINDINGS: Stable asymmetric elevation of right hemithorax. There is very low lung volumes bilaterally. Assessment of the lower lobes is very poorly evaluated on this examination. Stable left PICC. Stable enlargement of the cardiac silhouette. No pneumothorax. IMPRESSION: Limited examination without adverse development. Dictated by: Dictated on workstation # [id number]
[2017-07-28] MEDS: RT-BUDESONIDE NEBS 0.5 MG/2ML (PULMICORT) AMP INH SCH ×2 (08:27→20:50)
--- NOTE | 2017-07-28 08:37 | Progress Note-Hospitalist ---
Subjective HPI/CC On Admission Date Seen by Provider: Jul 28, 2017 Time Seen by Provider: 08:00 Mr. 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 Initially sputum was clear but then it became colored. He increase his prednisone from 20 mg to 40 mg daily and presented to my office on the . There he did have significant wheezing but was maintaining saturations on room air 95-96 percent. He did not wish to be admitted to the hospital at that time so he was discharged on Levaquin. He has a past history of Pseudomonas that was pansensitive cultured from a venous insufficiency ulcer but also required hyperbaric oxygen therapy on his right lower extremity. It has been improving through wound care but at one point was quite large and he still has a significant area of skin breakdown although he does have pink granulation tissue no increase in pain and they have been pleased as of late with wound healing. He called my office the afternoon of the reporting the onset of severe left-sided chest pain worse with breathing worse with cough that actually followed a paroxysm of cough. It was too painful to take deep breaths and he was feeling more short of breath. Sputum culture obtained as an outpatient was growing Pseudomonas on admission but sensitivities were not yet available. He is at high risk for progression to overt respiratory failure and was admitted to the intensive care unit for close monitoring and further therapeutics. Past medical history is most significant for Churg-Nils tenting as pulmonary hemorrhage in 2001. Other than prednisone his only other medication is IVIG. He has a history of disseminated histoplasmosis for which she has been on voriconazole for the past several years continues to have elevated androgen levels and urine and blood. They have been controlled however with chronic suppressive voriconazole therapy. He follows at for his pulmonary and infectious disease issues. 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 He has been on Forteo as of late but I did have concerns over possible cough related rib fracture considering this history. Subjective/Events-last exam still requiring BiPAP majority of the day. He has been able to go for periods of time on high flow nasal cannula oxygen reporting return of appetite and tolerating solids. Sputum production is decreasing and not purulent per report. Objective Exam Vital Signs Vital Sign - Last 12Hours 07/22/17 00:00 Temp 97.2 Pulse 76 Resp 15 B/P (MAP) 141/50 (80) Pulse Ox 95 O2 Delivery Mechanical Ventilator O2 Flow Rate 60.00 FiO2 60 Capillary Refill : Less Than 3 Seconds General Appearance: Anxious, Chronically ill Respiratory: Other (scattered rhonchi anteriorly without wheezing. Absent breath sounds in the right base diminished breath sounds in left base overall picture is that of decreasing congestion and the patient less tachypneic On BiPAP) Cardiovascular: Regular Rate, Rhythm, No Edema, No Gallop, No JVD, No Murmur, Normal Peripheral Pulses Extremity: Other (extremity edema stable) Results/Procedures Lab Laboratory Tests 07/28/17 04:03 Assessment/Plan Assessment and Plan Assess & Plan/Chief Complaint 1. Pseudomonas bronchitis with acute exacerbation of underlying lung disease with secondary respiratory failure. patient now off mechanical ventilation tolerating BiPAP. Pseudomonas on previous outpatient culture from last Friday also growing Enterobacter both sensitive to cefepime. repeat ET tube aspirate from the revealing normal jae only. BAL cultures for bacteria from the again positive for pansensitive pseudomonas fungal cultures pending... .. 2.Churg-Kunal/EGPA acute flare doubtful continue his monthly IVIG and considering number 1 higher dose Solu-Medrol taper Solu-Medrol when reactive airways show signs of improvement. 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 4. Left chest wall pain favor muscle spasm as it is a little more diffuse than one would expect for occult rib fracture as well as minimal improvement on morphine will add IV Norflex patient warned about sedation continue O2 sat monitoring continuous. 5. Slowly increasing BUN and creatinine compatible with relative intravascular volume depletion improving likely due to improved oxygenation status. Complex medical management. 6. Epigastric pain with decreasing white count doubt underlying infectious etiology. We'll continue proton pump inhibitor therapy. KUB did not suggest underlying obstruction ileus favored likely improving as the patient is beginning to pass gas. 7. History of osteoporosis on Forteo will resume injections. ERIC ADAM MD Jul 28, 2017 08:37
[2017-07-28] MEDS: VORICONAZOLE 200 MG TAB (VFEND) NON-FORMULARY PO SCH ×2 (08:58→20:19)
[2017-07-28] MEDS: risperiDONE 0.25 MG (RisperDAL) TAB PO SCH ×2 (08:59→20:20)
[2017-07-28] MEDS: PANTOPRAZOLE 40 MG/10 ML (PROTONIX) VIAL IV SCH (08:59)
[2017-07-28] MEDS: LOSARTAN 25 MG (COZAAR) TAB PO SCH (08:59)
[2017-07-28] MEDS: methylPREDNISolone 40 MG/ML (Solu-MEDROL) VIAL IV SCH ×2 (08:59→20:19)
[2017-07-28] MEDS ORDERED: BUMETANIDE 1 MG/4 ML (BUMEX) VIAL IV ONE (09:00)
[2017-07-28] MEDS: inSUlin DETERMIR 1 UNIT/0.01 ML (LEVEMIR) CHARGE PER UNIT SQ SCH ×3 (09:20→21:13)
[2017-07-28] MEDS: PATIENT MAY USE OWN MED,SINGLE MED SQ SCH (09:21)
[2017-07-28] MEDS: hydrALAZINE (APESOLINE) 20 MG/ML VIAL IV PRN ×2 (09:33→20:37)
[2017-07-28] MEDS: ANTACID SUSP 30 ML UDC (MYLANTA) PO PRN (09:33)
--- NOTE | 2017-07-28 09:42 | Physical Therapy Evaluation ---
PT Evaluation-General Medical Diagnosis Admission Date Jul 17, 2017 at 16:50 Medical Diagnosis: pneumonia Onset Date: Jul 17, 2017 Therapy Diagnosis Therapy Diagnosis: generalized weakness/debility Height/Weight Height (Feet): 5 Height (Inches): 10.50 Weight (Pounds): 252 Weight (Ounces): 8.0 Precautions Precautions/Isolations: Fall Prevention, Standard Precautions Weight Bear Status Right Lower Extremity: Right Full Weight Bearing Left Lower Extremity: Left Full Weight Bearing Referral Physician: Rebecca Reason for Referral: Evaluation/Treatment Medical History Pertinent Medical History: GERD Additional Medical History DDD, Churge-Kunal Current History Due to Churge-Kunal, patient becomes extremely debilitated and has required sedation and on the ventilator x 1 wk. Reviewed History: Yes Social History Home: Multilevel Current Living Status: Spouse Entry Into Home: Stairs With Railing PT Steps Into Home: 2 Prior/Core FIM Prior Level of Function Functional [place] Measure 0=Not Assessed/NA 4=Minimal Assistance 1=Total Assistance 5=Supervision or Setup 2=Maximal Assistance 6=Modified [place] 3=Moderate Assistance 7=Complete [place] Bed Mobility: 7 Transfers (B,C,W/C) (FIM): 7 Gait: 7 Locomotion: 7 PT Evaluation-Current Subjective Patient is currently on Bipap and RN switched to vapotherm. Pain Numeric Pain Scale: 0-No Pain Location: No Pain Reported Objective Patient Orientation: Normal For Age Problem Solving: Fair Attachments: SCD's, Oxygen (vapotherm), Garcia Catheter, IV ROM/Strength ROM Lower Extremities bilateral LE WNL Strength Lower Extremities right knee flexion/extension 3-/5; hip flexion 3-/5; DF/PF 3-/5 left knee flexion/extension 3-/5; hip flexion 3-/5 DF/PF 3-/5 Integumentary/Posture Integumentary noted total body edema Bowel Incontinence: No Bladder Incontinence: Garcia Cath Posture WNL Neuromuscular (Tone, Coordination, Reflexes) severely diminished coordination due to weakness Sensory Vision: Functional Hearing: Impaired Sensation Right Lower Extremit: Intact Sensation Left Lower Extremity: Intact Transfers Functional [place] Measure 0=Not Assessed/NA 4=Minimal Assistance 1=Total Assistance 5=Supervision or Setup 2=Maximal Assistance 6=Modified [place] 3=Moderate Assistance 7=Complete [place] Transfers (B, C, W/C) (FIM): 2 Scootin Rollin Supine to/from Sit: 3 Sit to/from Stand: 2 bed t/f WC(FIM only if WC use): 2 max assist with sit to stand and SPT bed to recliner/trunk flexed posture due to extreme weakness. Gait Anticipated Mode of Locomotion: Walk Balance Sitting Static: Normal Sitting Dynamic: Normal Standing Static: Poor Standing Dynamic: Poor Assessment/Needs 62 y.o. male, will benefit from skilled PT to address functional strength and mobility to improve current LOF and to safely return to home with family at maximum LOF. Patient will be seen initially 6/wk then increase to 11/wk when medical status improves. Rehab Potential: Fair PT Y[place] Dyer Goals Yarn Dyer Goals PT Correction Goals Time Frame: Aug 15, 2017 Transfers (B,C,W/C) (FIM): 6 Gait (FIM): 6 Gait distance (FIM): 3=150 ft Distance: 200' Gait Level of Assist: 6 Gait Assistive Device: FWW Stairs (FIM): 6 # of Steps: 12 Stairs Level Of Assist: 6 PT Plan Problem List Problem List: Activity Tolerance, Functional Strength, Safety, Balance, Gait, Transfer, Bed Mobility Treatment/Plan Treatment Plan: Continue Plan of Care Treatment Plan: Bed Mobility, Education, Functional Activity [place], Functional Strength, Gait, Safety, Therapeutic Exercise, Transfers Treatment Duration: Aug 15, 2017 Frequency: 6 times per week Estimated Hrs Per Day: .5 hour per day Patient and/or Family Agrees t: Yes Discharge Recommendations Therapy D/C Recommendations: Acute Rehab Time/GCodes Time In: 830 Time Out: 855 Total Billed Treatment Time: 25 Total Billed Treatment 1 visit [facility] 25 min LYLA BLOUNT PT Jul 28, 2017 09:42
[2017-07-28] MEDS: SIMETHICONE 80 MG (MYLICON) CHEW PO SCH ×3 (13:19→20:19)
[2017-07-28] MEDS: POLYETHYLENE GLYCOL 17 GM (MIRALAX) PACK PO SCH ×2 (13:19→20:19)
--- NOTE | 2017-07-28 13:44 | Occupational Therapy Eval ---
OT Evaluation-General/PLF Medical Diagnosis Admission Date Jul 17, 2017 at 16:50 Medical Diagnosis: pneumonia Onset Date: Jul 17, 2017 Therapy Diagnosis Therapy Diagnosis: Weakness, Decreased ADL skills Height/Weight Height (Feet): 5 Height (Inches): 10.50 Weight (Pounds): 252 Weight (Ounces): 8.0 Precautions Precautions/Isolations: Fall Prevention, Standard Precautions Safety Interventions: None Weight Bear Status Weight Bearing Restriction: Weight Bearing/Tolerated Referral Physician: Rebecca Referral Reason: Activity Tolerance, Self Care, Evaluation/Treatment, Strengthening/ROM Medical History Pertinent Medical History: GERD, Neuropathy Additional Medical History Pulmonary hemorrhage in 2001, asthma, back surgeries, GI bleed, DJD, osteoporosis, cataracts, Churge-Kunal syndrome, ulcers on right LE. Current History Pt. states that he fell down some stairs in November. Had a broken shoulder that healed, and ulcers on right leg that did not heal. Pt. has been seeing wound care for ulcers on leg. Pt. went into respiratory failure due to pseudomonas bronchitis. Pt. has been on ventilator multiple days, but was recently weaned. Pt. on vapotherm with nasal cannula. Reviewed History: Yes Social History Home: Multilevel Current Living Status: Spouse Entry Into Home: Stairs With Railing Steps Into Home: 2 ADL-Prior Level of Function ADL PLOF Comments Pt. states that he was independent with ADLs. DME/Equipment Comments Pt. states that he has a walker, wheelchair, and cane. Uses the cane for ambulation. Pt. 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 reports pain of 7/10 "all over, but mainly in stomach area." Nursing has already given pain medication approximately 30 minutes prior. Appearance Pt. is up in chair. Agrees to work with OT. Mental Status/Objective Patient Orientation: Person, Place, Time, Situation Attachments: Garcia Catheter, IV, Oxygen, Telemetry Current Hearing Aids: Yes Hand Dominance: Right Upper Extremity ROM Pt. is able to flex bilateral shoulders to approximately 90 degrees. Does demonstrate difficulty due to weakness and multiple tubes/lines. Upper Extremity Coordination impaired bilaterally due to swelling. Upper Extremity Strength Pt. demonstrates 2+/5 right shoulder 2/5 left shoulder 3/5 right hand 2+/5 left hand. Edema: Pt. has swelling in bilateral UE due to multiple IV/fluids. ADL-Treatment Functional [place] Measure 0=Not Assessed/NA 4=Minimal Assistance 1=Total Assistance 5=Supervision or Setup 2=Maximal Assistance 6=Modified [place] 3=Moderate Assistance 7=Complete IndependenceIRFPAI Quality Coding Scale 6 Independent with activity with or without an assistive device 5 Patient requires set up or clean up by helper. Patient completes activity by themselves 4 Supervision or touching assist (CGA). [place] provide cues , steadying assist 3 The helper provides less than half the effort to complete the activity 2 The helper provides more than half the effort to complete the activity 1 Dependent. The helper does all the effort to complete an activity 7 Patient refused to complete or attempt activity 9 The patient did not perform the activity before the current illness or injury 88 Not attempted due to Medical conditions or safety concerns Eating (FIM): 5 (Pt. was eating when OT entered room. Able to feed self after set up.) Lower Body Dressing (FIM): 1 (Pt. unable to reach his feet, or bring them up to him.) Transfers (B, C, W/C) (FIM): 1 (Please see note.) Other Treatments Pt. up in recliner chair without legs reclined. Would care Doctor came in to assess right LE. OT reclined chair but pt. seemed to be having difficulty with breathing efforts, in this position. OT put feet back onto floor. After wound care, pt. agreed to transfer back to bed. OT and nursing attempted with one on each side at first. Pt. did not seem to have the strength in this position. OT got in front of pt. with nursing assisting in the back. Required max x 2 for sit-stand, and pivot to bed. Once sitting on bed, pt. required dependent x 2 to transfer to supine, and then with bed mobility. Nursing present with OT, as well as respiratory therapist at this time. Monitoring 02 sats at time of transfer. Pt. was positioned in bed for comfort. Nursing and respiratory therapy completing assessment when OT left room. All needs met. Education OT Patient Education: Correct positioning, Modified ADL techniques, Progress toward Goal/Update tx plan, Purpose of tx/functional activities, Reviewed precautions, Rehab process, Transfer techniques Teaching Recipient: Patient Teaching Methods: Demonstration, Discussion Response to Teaching: Verbalize Understanding, Return Demonstration OT Short Term Goals Short Term Goals Time Frame: Aug 11, 2017 Eating(FIM): 5 Grooming(FIM): 3 Bathing(FIM): 3 Upper Body Dressing(FIM): 3 Lower Body Dressing(FIM): 3 Toileting(FIM): 4 Transfers (B,C,W/C) (FIM): 3 Toilet/Commode Transfer(FIM): 3 Additional Short Term Goals: 1-Demonstrate ADL Tasks, 2-Verbalize Understanding , 3-ImproveStrength/[place] 1=Demonstrate adherence to instructed precautions during ADL tasks. 2=Patient will verbalize/demonstrate understanding of assistive devices/ modifications for ADL. 3=Patient will improve strength/tolerance for activity to enable patient to perform ADL's. OT Penitentiary Goals Penitentiary Goals Time Frame: Aug 25, 2017 Eating (FIM): 5 Grooming(FIM): 5 Bathing(FIM): 5 Upper Body Dressing(FIM): 5 Lower Body Dressing(FIM): 5 Toileting(FIM): 5 Transfers (B,C,W/C) (FIM): 5 Toilet/Commode Transfer(FIM): 5 Shower Transfer(FIM): 4 Additional Goals: 1-Demonstrate ADL Tasks, 2-Verbalize Understanding, 3- ImproveStrength/[place] 1=Demonstrate adherence to instructed precautions during ADL tasks. 2=Patient will verbalize/demonstrate understanding of assistive devices/ modifications for ADL. 3=Patient will improve strength/tolerance for activity to enable patient to perform ADL's. OT Education/Plan Problem List/Assessment Assessment: Decreased Activ Tolerance, Decreased UE Strength, Dependent Transfers, Edema, Impaired Bed Mobility, Impaired Cognition, Impaired Coordination, Impaired Funct Balance, Impaired I ADL's, Impaired Self-Care Skills, Restricted Funct UE ROM Discharge Recommendations Plan/Recommendations: Continue POC Therapy D/C Recommendations: Acute Rehab Target Placement Pt. demonstrates significant debility at this time. Would benefit from acute rehab. Treatment Plan/Plan of Care Treatment,Training & Education: Yes Patient would benefit from OT for education, treatment and training to promote independence in ADL's, mobility, safety and/or upper extremity function for ADL' s. Plan of Care: ADL Retraining, Caregiver Training, Functional Mobility, UE Funct Exercise/Act Treatment Duration: Aug 25, 2017 Frequency: 5 times per week Estimated Hrs Per Day: .5 hour per day Agreement: Yes Rehab Potential: Fair Time/GCodes Start Time: 09:55 Stop Time: 10:35 Total Time Billed (hr/min): 40 Billed Treatment Time 1, EVH x 15minutes, FA x 25minutes ALISSA SERRA OT Jul 28, 2017 13:44
[2017-07-28] MEDS: ENOXAPARIN 40 MG/0.4 ML (LOVENOX) SYR SC SCH (18:23)
[2017-07-29] VITALS (33 sets, daily range): BP systolic 124–190; BP diastolic 32–64
[2017-07-29] MEDS: RT-ALBUTEROL/IPRATROPIUM 3 ML (DUONEB) VIAL IH SCH ×12 (00:13→22:32)
[2017-07-29] MEDS: D5W 1000 ML IV SOLUTION 1,000 ML IV SCH (02:28)
[2017-07-29] MEDS: aCETylcysteine 20% (MUCOMYST) 30ML SOLN VIAL INH SCH ×6 (02:47→22:32)
[2017-07-29 04:20] LABS: BASOPHILS % (AUTO) 0 % (0-10); EOSINOPHILS % (AUTO) 0 % (0-10); HEMATOCRIT 27 % (40-54); HEMOGLOBIN 8.1 G/DL (13.3-17.7); LYMPHOCYTES # (AUTO) 0.2 X 10^3 (1.0-4.0); LYMPHOCYTES % (AUTO) 2 % (12-44); MEAN CORPUSCULAR HEMOGLOBIN 28 PG (25-34); MEAN CORPUSCULAR HGB CONC 30 G/DL (32-36); MEAN CORPUSCULAR VOLUME 92 FL (80-99); MEAN PLATELET VOLUME 10.1 FL (7.4-10.4); MONOCYTES # (AUTO) 0.7 X 10^3 (0.0-1.0); MONOCYTES % (AUTO) 5 % (0-12); NEUTROPHILS # (AUTO) 12.4 X 10^3 (1.8-7.8); NEUTROPHILS % (AUTO) 93 % (42-75); PLATELET COUNT 159 10^3/uL (130-400); RED BLOOD COUNT 2.95 10^6/uL (4.35-5.85); RED CELL DISTRIBUTION WIDTH 16.7 % (10.0-14.5); WHITE BLOOD COUNT 13.3 10^3/uL (4.3-11.0)
[2017-07-29 04:21] LABS: ABG BASE EXCESS 5.2 MMOL/L (-2.5-2.5); ABG OXYGEN SATURATION 100 % (94-100); ABG PCO2 42 MMHG (35-45); ABG PH 7.45 (7.37-7.43); ABG PO2 109 MMHG (79-93); ABG TCO2 30.5 MMOL/L (21.0-31.0)
[2017-07-29 04:22] LABS: ALLENS TEST YES-POS; INSPIRED O2 35%; PATIENT TEMP 98.1; VENTILATOR NO
[2017-07-29 04:38] LABS: CALCIUM 8.7 MG/DL (8.5-10.1); CREATININE SERUM 1.22 MG/DL (0.60-1.30); MAGNESIUM 2.4 MG/DL (1.8-2.4); PHOSPHORUS 2.7 MG/DL (2.3-4.7); POTASSIUM 4.9 MMOL/L (3.6-5.0)
[2017-07-29] MEDS: KCL 20 MEQ TAB (K-DUR) PO SCH (04:57)
[2017-07-29] MEDS: MAGNESIUM 1 GM/100 ML IVPB 100 ML IV SCH (04:57)
[2017-07-29] MEDS: POTASSIUM CL 10MEQ/50ML IVPB 50 ML IV SCH (04:57)
[2017-07-29] MEDS: DILTIAZEM 60 MG (CARDIZEM) TAB PO SCH ×3 (06:06→18:45)
[2017-07-29] MEDS: inSUlin (REGULAR) HUMAN 1 UNIT/0.01 ML (CHARGE PER UNIT) SC SCH ×3 (06:06→18:45)
[2017-07-29] MEDS: hydrALAZINE (APESOLINE) 20 MG/ML VIAL IV PRN ×2 (06:19→13:34)
[2017-07-29] MEDS: meTOprolol 5 MG/5 ML (LOPRESSOR) VIAL IV PRN (06:19)
[2017-07-29] MEDS: ANTACID SUSP 30 ML UDC (MYLANTA) PO PRN ×3 (07:03→20:12)
--- NOTE | 2017-07-29 07:10 | Pulmonary Progress Note ---
Subjective Time Seen by Provider: 07:09 Subjective/Events-last exam Pt is doing better however he desats quickly with any exertion. Exam Exam Vital Signs Date Time Temp Pulse Resp B/P (MAP) Pulse Ox O2 Delivery O2 Flow Rate FiO2 07/29/17 06:56 96 Vapotherm 25.00 50 07/29/17 06:25 Vapotherm 50.00 25.00 07/29/17 06:00 80 20 184/52 (96) 99 NIV Bilevel 35.00 07/29/17 05:00 85 13 177/53 (94) 99 NIV Bilevel 35.00 07/29/17 04:59 98.1 07/29/17 04:32 87 18 100 30.00 07/29/17 04:00 86 18 169/52 (91) 100 NIV Bilevel 35.00 07/29/17 04:00 NIV Bilevel 35 07/29/17 03:00 85 25 159/48 (85) 94 NIV Bilevel 35.00 07/29/17 02:50 85 22 159/48 (85) 98 NIV Bilevel 35.00 07/29/17 02:47 85 24 100 35.00 07/29/17 02:00 89 23 149/45 (79) 97 NIV Bilevel 40.00 07/29/17 01:00 90 22 144/47 (79) 99 NIV Bilevel 40.00 07/29/17 01:00 90 07/29/17 00:15 85 22 144/45 (78) 100 NIV Bilevel 40.00 07/29/17 00:13 87 22 100 40.00 07/29/17 00:00 87 27 136/44 (74) 100 NIV Bilevel 50.00 07/29/17 00:00 NIV Bilevel 40 07/29/17 00:00 98.6 07/28/17 23:00 90 22 100 50.00 07/28/17 23:00 90 23 135/44 (74) 100 NIV Bilevel 50.00 07/28/17 22:00 90 35 133/43 (73) 100 NIV Bilevel 50.00 07/28/17 21:15 NIV Bilevel 50.00 07/28/17 21:00 95 35 171/49 (89) 98 Vapotherm 50.00 25.00 07/28/17 20:50 98 Vapotherm 25.00 55 07/28/17 20:50 99 Vapotherm 50 07/28/17 20:04 Vapotherm 55.00 25.00 07/28/17 20:00 NIV Bilevel 50 07/28/17 20:00 86 24 172/48 (89) 100 NIV Bilevel 50.00 07/28/17 19:23 98.6 NIV Bilevel 50.00 07/28/17 19:16 84 22 96 50.00 07/28/17 19:00 85 22 182/55 (97) 98 NIV Bilevel 50.00 07/28/17 19:00 85 07/28/17 18:00 91 21 184/59 (100) 98 NIV Bilevel 35.00 07/28/17 17:00 90 24 172/60 (97) 99 NIV Bilevel 35.00 07/28/17 16:11 87 22 98 50.00 07/28/17 16:00 96 22 188/60 (102) 95 NIV Bilevel 35.00 07/28/17 16:00 NIV Bilevel 35 07/28/17 16:00 97.9 NIV Bilevel 35.00 07/28/17 15:00 92 31 129/41 (70) 90 NIV Bilevel 35.00 07/28/17 14:55 87 31 95 50.00 07/28/17 14:00 85 22 174/54 (94) 95 NIV Bilevel 35.00 07/28/17 13:00 96 28 175/49 (91) 94 NIV Bilevel 35.00 07/28/17 13:00 96 07/28/17 12:18 97 31 91 50.00 07/28/17 12:00 Vapotherm 55 07/28/17 12:00 98 24 162/37 (78) 94 NIV Bilevel 35.00 07/28/17 12:00 98.4 NIV Bilevel 35.00 07/28/17 11:00 90 22 154/38 (76) 94 Vapotherm 55.00 25.00 07/28/17 10:26 100 Vapotherm 25.00 55 07/28/17 10:00 102 25 170/42 (84) 94 Vapotherm 55.00 25.00 07/28/17 09:00 89 28 174/55 (94) 99 Vapotherm 55.00 25.00 07/28/17 08:27 74 17 99 35.00 07/28/17 08:00 Vapotherm 55 07/28/17 08:00 72 18 151/81 (104) 100 NIV Bilevel 35.00 07/28/17 08:00 98.0 Vapotherm 55.00 25.00 I & O 07/29/17 07:00 Intake Total 2280 ml Output Total 2700 ml Balance -420 ml General Appearance: Anxious, Mild Distress HEENT: PERRL/EOMI, Normal ENT Inspection Neck: Full Range of Motion, Normal Inspection, Non Tender, Supple, Carotid Bruit Respiratory: Accessory Muscle Use (mild), Other (scattered rhonchi stable decrease in breath sounds in the right base no wheezing noted.) Cardiovascular: Regular Rate, Rhythm, No Edema, No Gallop, No JVD, No Murmur, Normal Peripheral Pulses Capillary Refill: Less Than 3 Seconds Gastrointestinal: normal bowel sounds, soft, no organomegaly, no pulsatile mass Extremity: Other (stable 2+ edema of all extremities extremities are warm with normal capillary refill) Neurologic/Psychiatric: Alert Skin: Pallor Lymphatic: No Adenopathy Results Lab Laboratory Tests 07/28/17 04:03 07/28/17 10:37 07/29/17 04:15 Assessment/Plan Assessment/Plan Acute respiratory failure -SVNs --Change SVNs to Q2 -Solumedrol 40 Q12 -Morphine PRN Acute renal failure -improved Hypernatremia -Hep lock D5W - Bumex Anemia -cont to montior Anxiety -Risperdal , morphine, Ativan Constipation -probably from pain meds and decrease activity -add lactulose and increase activity Back spasms -hx Churg Kunal -Pt follows with [facility] pulm/infectious disease Chronic elevation of right diaphragm with atelectasis pneumonia with Pseudomonas -Cefepime - D/C Immunosuppression hx Debility -consult PT/OT -hx of stable BETHANY nodule per CT scan Advance activity. UP to chair BID. Keep in ICU for another 24-48hrs. 233 Clinical Quality Measures DVT/VTE Risk/Contraindication: Risk Factor Score Per Nursin RFS Level Per Nursing on Admit: 3=High MEDINA VILLEGAS DO Jul 29, 2017 07:09
[2017-07-29] MEDS: LACTULOSE SYRUP 10GM/15ML (ENULOSE) 30ML UDC PO SCH ×2 (07:46→21:00)
[2017-07-29] MEDS: SIMETHICONE 80 MG (MYLICON) CHEW PO SCH ×4 (07:49→20:50)
[2017-07-29] MEDS: POLYETHYLENE GLYCOL 17 GM (MIRALAX) PACK PO SCH ×2 (07:49→21:00)
[2017-07-29] MEDS: LOSARTAN 25 MG (COZAAR) TAB PO SCH (07:49)
[2017-07-29] MEDS: VORICONAZOLE 200 MG TAB (VFEND) NON-FORMULARY PO SCH ×2 (07:50→20:09)
[2017-07-29] MEDS: PANTOPRAZOLE 40 MG/10 ML (PROTONIX) VIAL IV SCH (07:50)
[2017-07-29] MEDS: methylPREDNISolone 40 MG/ML (Solu-MEDROL) VIAL IV SCH ×2 (07:50→20:48)
[2017-07-29] MEDS: risperiDONE 0.25 MG (RisperDAL) TAB PO SCH ×2 (07:50→20:49)
[2017-07-29] MEDS: inSUlin DETERMIR 1 UNIT/0.01 ML (LEVEMIR) CHARGE PER UNIT SQ SCH ×2 (07:51→20:50)
[2017-07-29] MEDS: PATIENT MAY USE OWN MED,SINGLE MED SQ SCH (07:51)
[2017-07-29] MEDS: RT-BUDESONIDE NEBS 0.5 MG/2ML (PULMICORT) AMP INH SCH ×2 (08:01→18:27)
--- NOTE | 2017-07-29 08:07 | Diagnostic Imaging Report ---
INDICATION: Dyspnea. Comparison made with prior examination from 07/28/2017. FINDINGS: There is cardiomegaly. Elevation of the right hemidiaphragm. There are bibasilar infiltrates. There is no pneumothorax. Mediastinum is unremarkable. IMPRESSION: Cardiomegaly and patchy bibasilar infiltrates with elevation of the right hemidiaphragm. Dictated by: Dictated on workstation # [id number]
[2017-07-29] MEDS ORDERED: NON-FORMULARY MEDICATION 1 EA EA IV SCH (08:30)
[2017-07-29] MEDS ORDERED: PATIENT MAY USE OWN MED,SINGLE MED PO SCH (08:30)
--- NOTE | 2017-07-29 09:58 | Physical Therapy Daily Note ---
PT Daily Note-Current Subjective Patient agrees to exercise only. Transfers Functional [place] Measure 0=Not Assessed/NA 4=Minimal Assistance 1=Total Assistance 5=Supervision or Setup 2=Maximal Assistance 6=Modified [place] 3=Moderate Assistance 7=Complete IndependenceIRFPAI Quality Coding Scale 6 Independent with activity with or without an assistive device 5 Patient requires set up or clean up by helper. Patient completes activity by themselves 4 Supervision or touching assist (CGA). [place] provide cues , steadying assist 3 The helper provides less than half the effort to complete the activity 2 The helper provides more than half the effort to complete the activity 1 Dependent. The helper does all the effort to complete an activity 7 Patient refused to complete or attempt activity 9 The patient did not perform the activity before the current illness or injury 88 Not attempted due to Medical conditions or safety concerns Weight Bearing Right Lower Extremity: Right Full Weight Bearing Left Lower Extremity: Left Full Weight Bearing Exercises Supine Ex: Ankle pumps, Quad Set, Heel Slides, Straight leg raise, Hip abd/add Supine Reps: 10 (2 sets bilaterally AAROM) Assessment Patient has had a decline in pulmonary status on this date and is on the BiPap. PT will continue to monitor patient status for POC. 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 [employer] C[employer] Farmworker Goals PT [employer] C[employer] Farmworker Goals Time Frame: Aug 15, 2017 Transfers (B,C,W/C) (FIM): 6 Gait (FIM): 6 Gait distance (FIM): 3=150 ft Distance: 200' Gait Level of Assist: 6 Gait Assistive Device: FWW Stairs (FIM): 6 # of Steps: 12 Stairs Level Of Assist: 6 PT Plan Treatment/Plan Treatment Plan: Continue Plan of Care Treatment Plan: Bed Mobility, Education, Functional Activity [place], Functional Strength, Gait, Safety, Therapeutic Exercise, Transfers Treatment Duration: Aug 15, 2017 Frequency: 6 times per week Estimated Hrs Per Day: .5 hour per day Patient and/or Family Agrees t: Yes Time/GCodes Time In: 930 Time Out: 938 Total Billed Treatment Time: 8 Total Billed Treatment 1 visit EX 8 min LYLA BLOUNT PT Jul 29, 2017 09:58
--- NOTE | 2017-07-29 10:12 | Occ Therapy Progress Note ---
Therapy Progress Note Attempted treatment this a.m. Pt. on bedpan. Requested for OT to come back later. OT to come back later. 1, visit [id number] ALISSA SERRA OT Jul 29, 2017 10:12
--- NOTE | 2017-07-29 10:13 | Occ Therapy Progress Note ---
Therapy Progress Note Checked on pt. Pt. on bipap. Spoke with physical therapist who had seen pt. this a.m. States that nursing and physician do not want pt. out of bed at this time due to breathing concerns. Will go back and check on pt. this afternoon. 1, visit [id number] ALISSA SERRA OT Jul 29, 2017 10:13
--- NOTE | 2017-07-29 11:57 | Progress Note-Hospitalist ---
Subjective HPI/CC On Admission Date Seen by Provider: Jul 29, 2017 Time Seen by Provider: 09:00 Mr. 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 Initially sputum was clear but then it became colored. He increase his prednisone from 20 mg to 40 mg daily and presented to my office on the . There he did have significant wheezing but was maintaining saturations on room air 95-96 percent. He did not wish to be admitted to the hospital at that time so he was discharged on Levaquin. He has a past history of Pseudomonas that was pansensitive cultured from a venous insufficiency ulcer but also required hyperbaric oxygen therapy on his right lower extremity. It has been improving through wound care but at one point was quite large and he still has a significant area of skin breakdown although he does have pink granulation tissue no increase in pain and they have been pleased as of late with wound healing. He called my office the afternoon of the reporting the onset of severe left-sided chest pain worse with breathing worse with cough that actually followed a paroxysm of cough. It was too painful to take deep breaths and he was feeling more short of breath. Sputum culture obtained as an outpatient was growing Pseudomonas on admission but sensitivities were not yet available. He is at high risk for progression to overt respiratory failure and was admitted to the intensive care unit for close monitoring and further therapeutics. Past medical history is most significant for Churg-Nils tenting as pulmonary hemorrhage in 2001. Other than prednisone his only other medication is IVIG. He has a history of disseminated histoplasmosis for which she has been on voriconazole for the past several years continues to have elevated androgen levels and urine and blood. They have been controlled however with chronic suppressive voriconazole therapy. He follows at for his pulmonary and infectious disease issues. 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 He has been on Forteo as of late but I did have concerns over possible cough related rib fracture considering this history. Subjective/Events-last exam Upon my arrival the patient was being transferred back to bed from his chair. It took maximal assistance and resulted in severe respiratory distress despite BiPAP. Nursing staff reported that he desaturated down to the 70 range on 35 percent and a bump him up to 50. He was back up the levels well above 90 percent and within several minutes of sitting on the edge of the bed his respiratory rate drop from the 40s and labored back down to the mid 20s and less labored. He was only able to sign and point but appeared to be alert. He is on been coughing up a small amount of clear sputum with fair appetite. No severe back pain was noted since yesterday. He appeared not to have significant back pain on his transfer. Objective Exam Vital Signs Vital Sign - Last 12Hours 07/23/17 07/23/17 00:00 00:30 Temp 99.8 Pulse 90 Resp 19 B/P (MAP) 134/61 (85) Pulse Ox 95 O2 Delivery Mechanical Ventilator O2 Flow Rate 40.00 FiO2 40 Capillary Refill : Less Than 3 Seconds General Appearance: Moderate Distress Respiratory: Other (Scattered rhonchi without wheezing with decreased breath sounds in both bases right greater than left) Cardiovascular: Regular Rate, Rhythm, No Edema, No Gallop, No JVD, No Murmur, Normal Peripheral Pulses Extremity: Other (2+ upper and lower extremity edema. Stable) Results/Procedures Lab Laboratory Tests 07/29/17 04:15 Assessment/Plan Assessment and Plan Assess & Plan/Chief Complaint 1. Pseudomonas bronchitis with acute exacerbation of underlying lung disease with secondary respiratory failure. patient now off mechanical ventilation tolerating BiPAP with no exercise reserve for the remainder of today and until repeat evaluation tomorrow we will just have physical therapy with assistance have the patient sit on the edge of the bed due to his poor tolerance of transfer. Pseudomonas on previous outpatient culture from last Friday also growing Enterobacter both sensitive to cefepime. repeat ET tube aspirate from the revealing normal jae only. BAL cultures for bacteria from the again positive for pansensitive pseudomonas fungal cultures pending... .. 2.Churg-Kunal/EGPA acute flare doubtful continue his monthly IVIG and considering number 1 higher dose Solu-Medrol taper Solu-Medrol when reactive airways show signs of improvement. Patient will be receiving IVIG per usual protocol 2 hour infusion daily 4 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 4. Left chest wall pain favor muscle spasm as it is a little more diffuse than one would expect for occult rib fracture as well as minimal improvement on morphine will add IV Norflex patient warned about sedation continue O2 sat monitoring continuous. 5. Slowly increasing BUN and creatinine compatible with relative intravascular volume depletion improving likely due to improved oxygenation status. Complex medical management. 6. Epigastric pain with decreasing white count doubt underlying infectious etiology. We'll continue proton pump inhibitor therapy. KUB did not suggest underlying obstruction ileus favored likely improving as the patient is beginning to pass gas. 7. History of osteoporosis on Forteo will resume injections. ERIC ADAM MD Jul 29, 2017 11:57
--- NOTE | 2017-07-29 16:55 | Occupational Ther Daily Note ---
OT Current Status-Daily Note Subjective Pt. on bipap. After speaking with nurse, OT asks pt. if he would like to participate in UE exercises. Pt. nods yes. Mental Status/Objective Patient Orientation: Person, Place, Time, Situation Functional [place] Measure 0=Not Assessed/NA 4=Minimal Assistance 1=Total Assistance 5=Supervision or Setup 2=Maximal Assistance 6=Modified [place] 3=Moderate Assistance 7=Complete [place] Other Treatment OT has checked on pt. multiple times today. Spoke with nursing this afternoon regarding pt's current status. Pt. currently on bipap due to decreased oxygen sats and difficulty breathing. specified that he would like pt. to stay in bed at this time. Nursing okay for OT to work with UE if pt. okay with this. Spoke with respiratory therapist as well while giving breathing treatment to pt. Okay for pt. to complete UE exercises. Pt. nods that he would like to complete exercises. Noted significant swelling in bilateral UE. Right UE "weeping" and pt. had soaked pad. OT changed pad. Pt. completed 5 bilateral UE exercises actively x 10 reps in all planes with rest break in between, and OT managing tubing. This is while pt. on bipap with breathing treatment going. Pt. able to complete exercises. However, it is apparent that he is fatiguing. Pt. is very motivated within his limits. Will continue to monitor pt. and work with him within his limits and with physician permission. Education OT Patient Education: Correct positioning, Exercise program, Progress toward Goal/Update tx plan, Purpose of tx/functional activities, Reviewed precautions, Rehab process Teaching Recipient: Patient Teaching Methods: Demonstration, Discussion Response to Teaching: Verbalize Understanding, Return Demonstration OT Short Term Goals Short Term Goals Time Frame: Aug 11, 2017 Eating(FIM): 5 Grooming(FIM): 3 Bathing(FIM): 3 Upper Body Dressing(FIM): 3 Lower Body Dressing(FIM): 3 Toileting(FIM): 4 Transfers (B,C,W/C) (FIM): 3 Toilet/Commode Transfer(FIM): 3 Additional Short Term Goals: 1-Demonstrate ADL Tasks, 2-Verbalize Understanding , 3-ImproveStrength/[place] 1=Demonstrate adherence to instructed precautions during ADL tasks. 2=Patient will verbalize/demonstrate understanding of assistive devices/ modifications for ADL. 3=Patient will improve strength/tolerance for activity to enable patient to perform ADL's. OT Vp Strategy Goals Group Home Goals Time Frame: Aug 25, 2017 Eating (FIM): 5 Grooming(FIM): 5 Bathing(FIM): 5 Upper Body Dressing(FIM): 5 Lower Body Dressing(FIM): 5 Toileting(FIM): 5 Transfers (B,C,W/C) (FIM): 5 Toilet/Commode Transfer(FIM): 5 Shower Transfer(FIM): 4 Additional Goals: 1-Demonstrate ADL Tasks, 2-Verbalize Understanding, 3- ImproveStrength/[place] 1=Demonstrate adherence to instructed precautions during ADL tasks. 2=Patient will verbalize/demonstrate understanding of assistive devices/ modifications for ADL. 3=Patient will improve strength/tolerance for activity to enable patient to perform ADL's. OT Education/Plan Problem List/Assessment Assessment: Decreased Activ Tolerance, Decreased UE Strength, Dependent Transfers, Impaired Bed Mobility, Impaired Funct Balance, Impaired I ADL's, Impaired Self-Care Skills, Restricted Funct UE ROM Discharge Recommendations Plan/Recommendations: Continue POC Target Placement To be determined. Treatment Plan/Plan of Care Treatment,Training & Education: Yes Patient would benefit from OT for education, treatment and training to promote independence in ADL's, mobility, safety and/or upper extremity function for ADL' s. Plan of Care: ADL Retraining, Caregiver Training, Functional Mobility, UE Funct Exercise/Act Treatment Duration: Aug 25, 2017 Frequency: 5 times per week Estimated Hrs Per Day: .5 hour per day Agreement: Yes Rehab Potential: Fair Time/GCodes Start Time: 14:55 Stop Time: 15:10 Total Time Billed (hr/min): 15 Billed Treatment Time 1, ex PONCEPEEALISSA OT Jul 29, 2017 16:55
[2017-07-29] MEDS: ENOXAPARIN 40 MG/0.4 ML (LOVENOX) SYR SC SCH (18:44)
[2017-07-29] MEDS: HYDROcodone/APAP 10 MG/325 MG (LORTAB) TAB PO PRN (20:49)
[2017-07-30] VITALS (33 sets, daily range): BP systolic 121–224; BP diastolic 33–77
[2017-07-30] MEDS: DILTIAZEM 60 MG (CARDIZEM) TAB PO SCH ×4 (00:12→18:34)
[2017-07-30] MEDS: RT-ALBUTEROL/IPRATROPIUM 3 ML (DUONEB) VIAL IH SCH ×12 (00:12→21:37)
[2017-07-30] MEDS: inSUlin (REGULAR) HUMAN 1 UNIT/0.01 ML (CHARGE PER UNIT) SC SCH ×4 (00:17→19:03)
[2017-07-30] MEDS: aCETylcysteine 20% (MUCOMYST) 30ML SOLN VIAL INH SCH ×5 (02:11→18:29)
[2017-07-30 04:31] LABS: BASOPHILS % (AUTO) 0 % (0-10); EOSINOPHILS % (AUTO) 0 % (0-10); HEMATOCRIT 27 % (40-54); LYMPHOCYTES # (AUTO) 0.3 X 10^3 (1.0-4.0); LYMPHOCYTES % (AUTO) 2 % (12-44); MEAN CORPUSCULAR HEMOGLOBIN 28 PG (25-34); MEAN CORPUSCULAR HGB CONC 30 G/DL (32-36); MEAN CORPUSCULAR VOLUME 92 FL (80-99); MONOCYTES # (AUTO) 0.6 X 10^3 (0.0-1.0); MONOCYTES % (AUTO) 4 % (0-12); NEUTROPHILS # (AUTO) 14.5 X 10^3 (1.8-7.8); NEUTROPHILS % (AUTO) 94 % (42-75); PLATELET COUNT 164 10^3/uL (130-400); RED BLOOD COUNT 2.91 10^6/uL (4.35-5.85); RED CELL DISTRIBUTION WIDTH 16.9 % (10.0-14.5); WHITE BLOOD COUNT 15.5 10^3/uL (4.3-11.0)
[2017-07-30 04:40] LABS: ABG OXYGEN SATURATION 98 % (94-100); ABG PCO2 41 MMHG (35-45); ABG PH 7.49 (7.37-7.43); ABG PO2 79 MMHG (79-93); ABG TCO2 31.9 MMOL/L (21.0-31.0); ALLENS TEST ART LINE; INSPIRED O2 30%; VENTILATOR YES
[2017-07-30 04:41] LABS: PATIENT TEMP 96.9
[2017-07-30 04:47] LABS: BUN/CREATININE RATIO 60; CALCIUM 8.8 MG/DL (8.5-10.1); CARBON DIOXIDE 29 MMOL/L (21-32); CHLORIDE 107 MMOL/L (98-107); CREATININE SERUM 1.17 MG/DL (0.60-1.30); GFR ESTIMATED > 60; GLUCOSE 133 MG/DL (70-105); PHOSPHORUS 2.4 MG/DL (2.3-4.7); POTASSIUM 5.1 MMOL/L (3.6-5.0); SODIUM 147 MMOL/L (135-145)
[2017-07-30] MEDS: POTASSIUM CL 10MEQ/50ML IVPB 50 ML IV SCH (06:00)
[2017-07-30] MEDS: MAGNESIUM 1 GM/100 ML IVPB 100 ML IV SCH (06:00)
[2017-07-30] MEDS: KCL 20 MEQ TAB (K-DUR) PO SCH (06:00)
[2017-07-30] MEDS: RT-BUDESONIDE NEBS 0.5 MG/2ML (PULMICORT) AMP INH SCH ×2 (06:12→21:05)
[2017-07-30] MEDS: POLYETHYLENE GLYCOL 17 GM (MIRALAX) PACK PO SCH ×2 (07:48→21:00)
--- NOTE | 2017-07-30 08:17 | Diagnostic Imaging Report ---
INDICATION: Dyspnea. TIME OF EXAM: 4:45 AM Correlation is made with prior study one day earlier. FINDINGS: The heart remains enlarged. There are patchy airspace infiltrate identified in the right lung mid and lower aspect. Minimal infiltrate left base is also seen. Left upper extremity PICC line remains in place. There is no pneumothorax. IMPRESSION: Continued bilateral infiltrates, right greater and similar to the examination one day earlier. Dictated by: Dictated on workstation # [id number]
--- NOTE | 2017-07-30 08:44 | Progress Note-Hospitalist ---
Subjective HPI/CC On Admission Date Seen by Provider: Jul 30, 2017 Time Seen by Provider: 08:30 Mr. 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 Initially sputum was clear but then it became colored. He increase his prednisone from 20 mg to 40 mg daily and presented to my office on the . There he did have significant wheezing but was maintaining saturations on room air 95-96 percent. He did not wish to be admitted to the hospital at that time so he was discharged on Levaquin. He has a past history of Pseudomonas that was pansensitive cultured from a venous insufficiency ulcer but also required hyperbaric oxygen therapy on his right lower extremity. It has been improving through wound care but at one point was quite large and he still has a significant area of skin breakdown although he does have pink granulation tissue no increase in pain and they have been pleased as of late with wound healing. He called my office the afternoon of the reporting the onset of severe left-sided chest pain worse with breathing worse with cough that actually followed a paroxysm of cough. It was too painful to take deep breaths and he was feeling more short of breath. Sputum culture obtained as an outpatient was growing Pseudomonas on admission but sensitivities were not yet available. He is at high risk for progression to overt respiratory failure and was admitted to the intensive care unit for close monitoring and further therapeutics. Past medical history is most significant for Churg-Nils tenting as pulmonary hemorrhage in 2001. Other than prednisone his only other medication is IVIG. He has a history of disseminated histoplasmosis for which she has been on voriconazole for the past several years continues to have elevated androgen levels and urine and blood. They have been controlled however with chronic suppressive voriconazole therapy. He follows at for his pulmonary and infectious disease issues. 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 He has been on Forteo as of late but I did have concerns over possible cough related rib fracture considering this history. Subjective/Events-last exam patient tolerating high flow O2 via Vapotherm during the day. Still short of breath with minimal activity. No chills or fever noted no purulent sputum production reported. Patient has had 2 diarrheal stools without abdominal cramping or pain. No blood noted. Objective Exam Vital Signs Vital Sign - Last 12Hours 07/25/17 00:00 Temp 98.6 Pulse 79 Resp 17 B/P (MAP) 136/52 (80) Pulse Ox 93 O2 Delivery Mechanical Ventilator O2 Flow Rate 70.00 FiO2 50 Capillary Refill : Less Than 3 Seconds General Appearance: Anxious, Chronically ill (cushingoid as well) Respiratory: No Accessory Muscle Use, Other (few scattered rhonchi wheezing on forced expiration only not noted on regular respiration. Accessory muscle use with minimal exertion but not at rest.) Cardiovascular: Regular Rate, Rhythm, No Edema, No Gallop, No JVD, No Murmur, Normal Peripheral Pulses Gastrointestinal: Normal Bowel Sounds, No Organomegaly, No Pulsatile Mass, Non Tender, Soft Extremity: Other (plus upper and lower extremity edema unchanged that is 2+) Results/Procedures Lab Laboratory Tests 07/30/17 10:28 07/31/17 04:40 Assessment/Plan Assessment and Plan Assess & Plan/Chief Complaint 1. Pseudomonas bronchitis with acute exacerbation of underlying lung disease with secondary respiratory failure. patient now off mechanical ventilation tolerating BiPAP with no exercise reserve for the remainder of today and until repeat evaluation tomorrow we will just have physical therapy with assistance have the patient sit on the edge of the bed due to his poor tolerance of transfer. Pseudomonas on previous outpatient culture from last Friday also growing Enterobacter both sensitive to cefepime. repeat ET tube aspirate from the revealing normal jae only. BAL cultures for bacteria from the again positive for pansensitive pseudomonas fungal cultures pending... .. 2.Churg-Kunal/EGPA acute flare doubtful continue his monthly IVIG and considering number 1 higher dose Solu-Medrol taper Solu-Medrol when reactive airways show signs of improvement. Patient will be receiving IVIG per usual protocol 2 hour infusion daily 4 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 4. Left chest wall pain favor muscle spasm as it is a little more diffuse than one would expect for occult rib fracture as well as minimal improvement on morphine will add IV Norflex patient warned about sedation continue O2 sat monitoring continuous. 5. Slowly increasing BUN and creatinine compatible with relative intravascular volume depletion improving likely due to improved oxygenation status. Complex medical management. 6. Epigastric pain with decreasing white count doubt underlying infectious etiology. We'll continue proton pump inhibitor therapy. KUB did not suggest underlying obstruction ileus favored likely improving as the patient is beginning to pass gas. 7. History of osteoporosis on Forteo will resume injections. 8.New onset diarrhea will send stool for Cdiff. respiratory status improved Na level 145 with elevated sbp 190's give one dose bumex. ERIC ADAM MD Jul 30, 2017 08:44
[2017-07-30] MEDS: SIMETHICONE 80 MG (MYLICON) CHEW PO SCH ×4 (08:51→21:17)
[2017-07-30] MEDS: LOSARTAN 25 MG (COZAAR) TAB PO SCH (08:51)
[2017-07-30] MEDS: VORICONAZOLE 200 MG TAB (VFEND) NON-FORMULARY PO SCH ×2 (08:52→20:13)
[2017-07-30] MEDS: methylPREDNISolone 40 MG/ML (Solu-MEDROL) VIAL IV SCH ×2 (08:52→21:15)
[2017-07-30] MEDS: inSUlin DETERMIR 1 UNIT/0.01 ML (LEVEMIR) CHARGE PER UNIT SQ SCH ×2 (08:52→21:27)
[2017-07-30] MEDS: PANTOPRAZOLE 40 MG/10 ML (PROTONIX) VIAL IV SCH (08:53)
--- NOTE | 2017-07-30 08:58 | Pulmonary Progress Note ---
Subjective Time Seen by Provider: 08:57 Subjective/Events-last exam PT was not able to tolerate getting up to a chair yesterday. Exam Exam Vital Signs Date Time Temp Pulse Resp B/P (MAP) Pulse Ox O2 Delivery O2 Flow Rate FiO2 07/30/17 08:18 97 Vapotherm 25.00 40 07/30/17 08:00 97.8 Vapotherm 40.00 25.00 07/30/17 07:00 92 17 148/46 (80) 91 NIV Bilevel 30.00 07/30/17 07:00 92 07/30/17 06:13 89 22 99 30.00 07/30/17 06:00 80 18 153/37 (75) 98 NIV Bilevel 30.00 07/30/17 05:00 91 27 135/40 (71) 97 NIV Bilevel 30.00 07/30/17 04:06 89 24 99 30.00 07/30/17 04:00 NIV Bilevel 30 07/30/17 04:00 98.9 85 21 155/40 (78) 98 NIV Bilevel 30.00 07/30/17 03:00 96 24 164/44 (84) 97 NIV Bilevel 30.00 07/30/17 02:13 84 25 98 30.00 07/30/17 02:00 87 23 127/38 (67) 96 NIV Bilevel 30.00 07/30/17 01:00 96 26 138/39 (72) 98 NIV Bilevel 30.00 07/30/17 01:00 93 07/30/17 00:13 101 26 96 30.00 07/30/17 00:00 NIV Bilevel 30 07/30/17 00:00 99.8 96 27 138/38 (71) 97 NIV Bilevel 30.00 07/29/17 23:00 94 40 124/36 (65) 92 NIV Bilevel 30.00 07/29/17 22:36 100 29 95 30.00 07/29/17 22:35 100 29 95 30.00 07/29/17 22:00 92 23 138/35 (69) 95 NIV Bilevel 30.00 07/29/17 21:00 101 22 159/43 (81) 96 NIV Bilevel 30.00 07/29/17 20:07 100 29 97 30.00 07/29/17 20:00 99.2 102 25 164/41 (82) 97 NIV Bilevel 30.00 07/29/17 20:00 NIV Bilevel 30 07/29/17 19:00 109 07/29/17 19:00 113 26 158/37 (77) 93 Vapotherm 40.00 25.00 07/29/17 18:31 100 NIV Bilevel 30 07/29/17 18:29 95 13 100 30.00 07/29/17 16:31 101 24 98 30.00 07/29/17 16:00 NIV Bilevel 30 07/29/17 16:00 97.4 NIV Bilevel 30.00 07/29/17 15:00 114 38 145/46 (79) 98 NIV Bilevel 30.00 07/29/17 14:44 107 25 97 30.00 07/29/17 14:30 NIV Bilevel 30.00 07/29/17 14:15 98.7 Vapotherm 40.00 25.00 07/29/17 14:00 105 32 172/40 (84) 97 Vapotherm 40.00 25.00 07/29/17 13:00 92 27 148/49 (82) 96 NIV Bilevel 30.00 07/29/17 12:48 96 29 96 30.00 07/29/17 12:42 98 07/29/17 12:00 103 25 167/56 (93) 97 NIV Bilevel 30.00 07/29/17 12:00 NIV Bilevel 30 07/29/17 11:00 95 27 163/51 (88) 97 NIV Bilevel 30.00 07/29/17 10:40 102 29 97 30.00 07/29/17 10:00 98 28 140/48 (78) 96 NIV Bilevel 30.00 07/29/17 09:00 114 28 174/64 (100) 98 NIV Bilevel 30.00 I & O 07/30/17 07:00 Intake Total 930 ml Output Total 1725 ml Balance -795 ml General Appearance: Anxious, Mild Distress HEENT: PERRL/EOMI, Normal ENT Inspection Neck: Full Range of Motion, Normal Inspection, Non Tender, Supple, Carotid Bruit Respiratory: Accessory Muscle Use (mild), Other (scattered rhonchi stable decrease in breath sounds in the right base no wheezing noted.) Cardiovascular: Regular Rate, Rhythm, No Edema, No Gallop, No JVD, No Murmur, Normal Peripheral Pulses Capillary Refill: Less Than 3 Seconds Gastrointestinal: normal bowel sounds, soft, no organomegaly, no pulsatile mass Extremity: Other (stable 2+ edema of all extremities extremities are warm with normal capillary refill) Neurologic/Psychiatric: Alert Skin: Pallor Lymphatic: No Adenopathy Results Lab Laboratory Tests 07/28/17 10:37 07/29/17 04:15 07/30/17 04:20 Assessment/Plan Assessment/Plan Acute respiratory failure -SVNs --Change SVNs to Q2 -Solumedrol 40 Q12 -Morphine PRN Acute renal failure -improved Hypernatremia - D5W Anemia -cont to montior Anxiety -Risperdal , morphine, Ativan Constipation -probably from pain meds and decrease activity -add lactulose and increase activity Back spasms -hx Churg Kunal -Pt follows with [facility] pulm/infectious disease Chronic elevation of right diaphragm with atelectasis pneumonia with Pseudomonas -Cefepime - D/C Immunosuppression hx Debility -consult PT/OT -hx of stable BETHANY nodule per CT scan Advance activity. UP to chair BID. Keep in ICU for another 24-48hrs. 233 Clinical Quality Measures DVT/VTE Risk/Contraindication: Risk Factor Score Per Nursin RFS Level Per Nursing on Admit: 3=High MEDINA VILLEGAS DO Jul 30, 2017 08:58
[2017-07-30] MEDS: risperiDONE 0.25 MG (RisperDAL) TAB PO SCH ×2 (09:00→21:16)
[2017-07-30] MEDS ORDERED: BUMETANIDE 1 MG (BUMEX) TAB PO NR (09:30)
[2017-07-30] MEDS ORDERED: ACETAMINOPHEN 500 MG TAB (TYLENOL) PO SCH (09:36)
[2017-07-30] MEDS: PATIENT MAY USE OWN MED,SINGLE MED SQ SCH (09:48)
[2017-07-30] MEDS ORDERED: IMMUNE GLOBULIN IV SCH ×2 (10:00→11:00)
[2017-07-30] MEDS: LORATADINE (CLARITIN) 10 MG TAB PO SCH (10:09)
[2017-07-30] MEDS: D5W 1000 ML IV SOLUTION 1,000 ML IV SCH ×3 (10:10→20:47)
--- NOTE | 2017-07-30 10:11 | Physical Therapy Daily Note ---
PT Daily Note-Current Subjective Agreeable to PT. Agrees to sit up in the chair. Pain Numeric Pain Scale: 0-No Pain Location: No Pain Reported Mental Status Patient Orientation: Person, Place, Time, Situation multiple attachments associated with ICU stay. Pt transitioned to the BiPap for transfer. Transfers Functional [place] Measure 0=Not Assessed/NA 4=Minimal Assistance 1=Total Assistance 5=Supervision or Setup 2=Maximal Assistance 6=Modified [place] 3=Moderate Assistance 7=Complete IndependenceIRFPAI Quality Coding Scale 6 Independent with activity with or without an assistive device 5 Patient requires set up or clean up by helper. Patient completes activity by themselves 4 Supervision or touching assist (CGA). [place] provide cues , steadying assist 3 The helper provides less than half the effort to complete the activity 2 The helper provides more than half the effort to complete the activity 1 Dependent. The helper does all the effort to complete an activity 7 Patient refused to complete or attempt activity 9 The patient did not perform the activity before the current illness or injury 88 Not attempted due to Medical conditions or safety concerns Pt was able to roll left and right with mod assist to place the jeff lift sheet. Pt was then transferred bed to chair via jeff transport. Pt up in chair post treatment. Weight Bearing Right Lower Extremity: Right Full Weight Bearing Left Lower Extremity: Left Full Weight Bearing Exercises Seated Therapy Exercises: Ankle pumps, Long arc quads, Hip flexion Seated Reps: 5 (to 7 each; to facilitate mm activity, circulation and increased functional mobility.) Assessment Current Status: Fair Progress Pt did tolerate transfer well. Very SOA with activity; difficulty with movement. Limited LE strength for LE exercise. PT Short Term Goals Short Term Goals Transfers (B,C,W/C) (FIM): 3 PT Salesperson Driver Goals Salesperson Driver Goals PT Residential Goals Time Frame: Aug 15, 2017 Transfers (B,C,W/C) (FIM): 6 Gait (FIM): 6 Gait distance (FIM): 3=150 ft Distance: 200' Gait Level of Assist: 6 Gait Assistive Device: FWW Stairs (FIM): 6 # of Steps: 12 Stairs Level Of Assist: 6 PT Plan Problem List Problem List: Activity Tolerance, Functional Strength, Safety, Transfer, Bed Mobility Treatment/Plan Treatment Plan: Continue Plan of Care Treatment Plan: Bed Mobility, Education, Functional Activity [place], Functional Strength, Gait, Safety, Therapeutic Exercise, Transfers Treatment Duration: Aug 15, 2017 Frequency: 6 times per week Estimated Hrs Per Day: .5 hour per day Patient and/or Family Agrees t: Yes Safety Risks/Education Patient Education: Transfer Techniques, Safety Issues Teaching Recipient: Patient Teaching Methods: Discussion Response to Teaching: Reinforcement Needed Discharge Recommendations Plan Per Dr. Fernandez request, aggressive therapy and work as quickly as possible to transition to sit to stand lift. Time/GCodes Time In: 900 Time Out: 1000 Total Billed Treatment Time: 60 Total Billed Treatment visit FA 45 EX 15 KAMRON ASHER PT Jul 30, 2017 10:11
[2017-07-30 10:55] LABS: BUN/CREATININE RATIO 57; CALCIUM 8.9 MG/DL (8.5-10.1); CARBON DIOXIDE 29 MMOL/L (21-32); CHLORIDE 106 MMOL/L (98-107); CREATININE SERUM 1.15 MG/DL (0.60-1.30); GFR ESTIMATED > 60; GLUCOSE 131 MG/DL (70-105); POTASSIUM 5.2 MMOL/L (3.6-5.0); SODIUM 146 MMOL/L (135-145)
--- NOTE | 2017-07-30 14:02 | Occupational Ther Daily Note ---
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 Appearance Pt. up in chair. Pt. on bipap. Also getting IV at this time. Requests to stay up in chair. Mental Status/Objective Patient Orientation: Person, Place, Time, Situation Functional [place] Measure 0=Not Assessed/NA 4=Minimal Assistance 1=Total Assistance 5=Supervision or Setup 2=Maximal Assistance 6=Modified [place] 3=Moderate Assistance 7=Complete [place] Attachments: Garcia Catheter, IV, Oxygen, Telemetry Other Treatment Pt. up in chair. Pt. on bipap. Agrees to work with OT. OT went to get armbike. Pt. completed armbike at min resistance x 5 minutes with several rest breaks. Sats at 100%. Nursing stays in room to monitor BP and sats, as well as HR. Pt. takes several rest breaks. After armbike, pt. completed bilateral UE exercises x 5 exercises x 10 reps each in all planes. Tolerated treatment well. OT and pt. talked in depth regarding pt's progress. Pt. doing significantly better today than yesterday. Noted less swelling in right UE. Pt. states that his "stamina" is better today. Attempted upright "crunches" in chair. Pt. states that this makes torso sore. Attempted LE exercises with ankle pumps, seated marches, and leg kicks. Pt. is very weak. Left LE more than right. Pt. very motivated to increase overall strength. Pt's goals to return home and gain independence. All needs met up in chair. Education OT Patient Education: Correct positioning, Exercise program, Progress toward Goal/Update tx plan, Purpose of tx/functional activities, Reviewed precautions, Rehab process, Transfer techniques, Use of adapted equipment Teaching Recipient: Patient Teaching Methods: Demonstration, Discussion Response to Teaching: Verbalize Understanding, Return Demonstration OT Short Term Goals Short Term Goals Time Frame: Aug 11, 2017 Eating(FIM): 5 Grooming(FIM): 3 Bathing(FIM): 3 Upper Body Dressing(FIM): 3 Lower Body Dressing(FIM): 3 Toileting(FIM): 4 Transfers (B,C,W/C) (FIM): 3 Toilet/Commode Transfer(FIM): 3 Additional Short Term Goals: 1-Demonstrate ADL Tasks, 2-Verbalize Understanding , 3-ImproveStrength/Judson 1=Demonstrate adherence to instructed precautions during ADL tasks. 2=Patient will verbalize/demonstrate understanding of assistive devices/ modifications for ADL. 3=Patient will improve strength/tolerance for activity to enable patient to perform ADL's. OT Drum Tender Goals Drum Tender Goals Time Frame: Aug 25, 2017 Eating (FIM): 5 Grooming(FIM): 5 Bathing(FIM): 5 Upper Body Dressing(FIM): 5 Lower Body Dressing(FIM): 5 Toileting(FIM): 5 Transfers (B,C,W/C) (FIM): 5 Toilet/Commode Transfer(FIM): 5 Shower Transfer(FIM): 4 Additional Goals: 1-Demonstrate ADL Tasks, 2-Verbalize Understanding, 3- ImproveStrength/Judson 1=Demonstrate adherence to instructed precautions during ADL tasks. 2=Patient will verbalize/demonstrate understanding of assistive devices/ modifications for ADL. 3=Patient will improve strength/tolerance for activity to enable patient to perform ADL's. OT Education/Plan Problem List/Assessment Assessment: Decreased Activ Tolerance, Decreased UE Strength, Dependent Transfers, Impaired Bed Mobility, Impaired Coordination, Impaired Funct Balance , Impaired I ADL's, Impaired Self-Care Skills, Restricted Funct UE ROM Discharge Recommendations Plan/Recommendations: Continue POC Therapy D/C Recommendations: Acute Rehab Treatment Plan/Plan of Care Treatment,Training & Education: Yes Patient would benefit from OT for education, treatment and training to promote independence in ADL's, mobility, safety and/or upper extremity function for ADL' s. Plan of Care: ADL Retraining, Caregiver Training, Functional Mobility, UE Funct Exercise/Act Treatment Duration: Aug 25, 2017 Frequency: 5 times per week Estimated Hrs Per Day: .5 hour per day Agreement: Yes Rehab Potential: Fair Time/GCodes Start Time: 11:15 Stop Time: 12:00 Total Time Billed (hr/min): 45 Billed Treatment Time 1, EX x 3 ALISSA SERRA OT Jul 30, 2017 14:02
--- NOTE | 2017-07-30 15:16 | Physical Therapy Daily Note ---
PT Daily Note-Current Subjective Ready to return to bed. Transfers Functional [place] Measure 0=Not Assessed/NA 4=Minimal Assistance 1=Total Assistance 5=Supervision or Setup 2=Maximal Assistance 6=Modified [place] 3=Moderate Assistance 7=Complete IndependenceIRFPAI Quality Coding Scale 6 Independent with activity with or without an assistive device 5 Patient requires set up or clean up by helper. Patient completes activity by themselves 4 Supervision or touching assist (CGA). [place] provide cues , steadying assist 3 The helper provides less than half the effort to complete the activity 2 The helper provides more than half the effort to complete the activity 1 Dependent. The helper does all the effort to complete an activity 7 Patient refused to complete or attempt activity 9 The patient did not perform the activity before the current illness or injury 88 Not attempted due to Medical conditions or safety concerns Pt has been up in chair since last seen by PT. Pt requesting to return to bed at this time. May transfer to bed. Pt participated in rolling side to side to remove mya sling; also attempted to assist in scooting up in bed; although max of 2 to scoot. Pt requires mod assist to roll in bed. Pt in bed after treatment with needs met. Weight Bearing Right Lower Extremity: Right Full Weight Bearing Left Lower Extremity: Left Full Weight Bearing Assessment Current Status: Good Progress Tolerated up to chair well. PT Short Term Goals Short Term Goals Transfers (B,C,W/C) (FIM): 3 PT Advice Line Rn Goals Intermediate Goals PT Intermediate Goals Time Frame: Aug 15, 2017 Transfers (B,C,W/C) (FIM): 6 Gait (FIM): 6 Gait distance (FIM): 3=150 ft Distance: 200' Gait Level of Assist: 6 Gait Assistive Device: FWW Stairs (FIM): 6 # of Steps: 12 Stairs Level Of Assist: 6 PT Plan Problem List Problem List: Activity Tolerance, Functional Strength, Safety Treatment/Plan Treatment Plan: Continue Plan of Care Treatment Plan: Bed Mobility, Education, Functional Activity [place], Functional Strength, Gait, Safety, Therapeutic Exercise, Transfers Treatment Duration: Aug 15, 2017 Frequency: 6 times per week Estimated Hrs Per Day: .5 hour per day Patient and/or Family Agrees t: Yes Discharge Recommendations Plan Try sit to stand lift for transfer tomorrow. Time/GCodes Time In: 1425 Time Out: 1450 Total Billed Treatment Time: 25 Total Billed Treatment vsiit FA 25 KAMRON ASHER PT Jul 30, 2017 15:16
[2017-07-30] MEDS: TERIPARATIDE 600 MCG/2.4 ML (FORTEO) SYR SQ SCH (18:30)
[2017-07-30] MEDS: meTOprolol 5 MG/5 ML (LOPRESSOR) VIAL IV PRN (18:34)
[2017-07-30] MEDS: ENOXAPARIN 40 MG/0.4 ML (LOVENOX) SYR SC SCH (18:34)
[2017-07-30] MEDS: HYDROcodone/APAP 10 MG/325 MG (LORTAB) TAB PO PRN (21:17)
[2017-07-31] VITALS (19 sets, daily range): BP systolic 132–198; BP diastolic 53–84
[2017-07-31] MEDS: aCETylcysteine 20% (MUCOMYST) 30ML SOLN VIAL INH SCH ×7 (00:13→22:07)
[2017-07-31] MEDS: DILTIAZEM 60 MG (CARDIZEM) TAB PO SCH ×4 (00:22→18:05)
[2017-07-31] MEDS: inSUlin (REGULAR) HUMAN 1 UNIT/0.01 ML (CHARGE PER UNIT) SC SCH ×5 (00:28→21:02)
[2017-07-31] MEDS: RT-ALBUTEROL/IPRATROPIUM 3 ML (DUONEB) VIAL IH SCH ×9 (02:05→19:19)
[2017-07-31 04:48] LABS: ABG OXYGEN SATURATION 96 % (94-100); ABG PCO2 42 MMHG (35-45); ABG PH 7.49 (7.37-7.43); ABG PO2 66 MMHG (79-93); ABG TCO2 33.3 MMOL/L (21.0-31.0)
[2017-07-31 04:52] LABS: ALLENS TEST ART LINE
[2017-07-31 04:53] LABS: INSPIRED O2 25% FIO2 BIPAP; PATIENT TEMP 96.6; VENTILATOR NO
[2017-07-31 05:03] LABS: BASOPHILS % (AUTO) 0 % (0-10); EOSINOPHILS % (AUTO) 0 % (0-10); HEMATOCRIT 25 % (40-54); HEMOGLOBIN 7.2 G/DL (13.3-17.7); LYMPHOCYTES # (AUTO) 0.3 X 10^3 (1.0-4.0); LYMPHOCYTES % (AUTO) 2 % (12-44); MEAN CORPUSCULAR HEMOGLOBIN 27 PG (25-34); MEAN CORPUSCULAR HGB CONC 29 G/DL (32-36); MEAN CORPUSCULAR VOLUME 92 FL (80-99); MEAN PLATELET VOLUME 10.5 FL (7.4-10.4); MONOCYTES # (AUTO) 0.5 X 10^3 (0.0-1.0); MONOCYTES % (AUTO) 4 % (0-12); NEUTROPHILS # (AUTO) 12.6 X 10^3 (1.8-7.8); NEUTROPHILS % (AUTO) 94 % (42-75); PLATELET COUNT 151 10^3/uL (130-400); RED BLOOD COUNT 2.67 10^6/uL (4.35-5.85); RED CELL DISTRIBUTION WIDTH 16.3 % (10.0-14.5); WHITE BLOOD COUNT 13.4 10^3/uL (4.3-11.0)
[2017-07-31 05:25] LABS: BUN/CREATININE RATIO 60; CALCIUM 8.6 MG/DL (8.5-10.1); CARBON DIOXIDE 27 MMOL/L (21-32); CHLORIDE 103 MMOL/L (98-107); CREATININE SERUM 0.99 MG/DL (0.60-1.30); GFR ESTIMATED > 60; GLUCOSE 116 MG/DL (70-105); MAGNESIUM 2.3 MG/DL (1.8-2.4); PHOSPHORUS 3.6 MG/DL (2.3-4.7); POTASSIUM 4.7 MMOL/L (3.6-5.0); SODIUM 140 MMOL/L (135-145)
[2017-07-31] MEDS: POTASSIUM CL 10MEQ/50ML IVPB 50 ML IV SCH (06:00)
[2017-07-31] MEDS: MAGNESIUM 1 GM/100 ML IVPB 100 ML IV SCH (06:00)
[2017-07-31] MEDS: KCL 20 MEQ TAB (K-DUR) PO SCH ×2 (06:00→21:03)
[2017-07-31] MEDS: meTOprolol 5 MG/5 ML (LOPRESSOR) VIAL IV PRN (06:36)
--- NOTE | 2017-07-31 06:40 | Pulmonary Progress Note ---
Subjective Time Seen by Provider: 06:35 Subjective/Events-last exam Pt appears to be doing better. He is very weak and still requiring BiPAP. Exam Exam Vital Signs Date Time Temp Pulse Resp B/P (MAP) Pulse Ox O2 Delivery O2 Flow Rate FiO2 07/31/17 06:00 75 24 192/69 (110) 96 NIV Bilevel 25.00 07/31/17 05:00 72 22 163/61 (95) 97 NIV Bilevel 25.00 07/31/17 04:00 96.6 71 21 155/59 (91) 98 NIV Bilevel 25.00 07/31/17 04:00 NIV Bilevel 25 07/31/17 03:48 68 20 94 25.00 07/31/17 03:00 69 20 140/56 (84) 95 NIV Bilevel 25.00 07/31/17 02:06 70 20 97 25.00 07/31/17 02:00 69 21 132/54 (80) 97 NIV Bilevel 25.00 07/31/17 01:00 72 07/31/17 01:00 71 21 132/53 (79) 94 NIV Bilevel 25.00 07/31/17 00:13 75 22 100 30.00 07/31/17 00:00 NIV Bilevel 25 07/31/17 00:00 98.2 NIV Bilevel 25.00 07/31/17 00:00 74 21 149/55 (86) 95 NIV Bilevel 25.00 07/30/17 23:00 82 17 168/66 (100) 100 NIV Bilevel 30.00 07/30/17 22:00 77 26 176/57 (96) 99 NIV Bilevel 30.00 07/30/17 21:05 87 20 100 30.00 07/30/17 21:00 87 30 171/59 (96) 99 NIV Bilevel 30.00 07/30/17 20:05 98.6 NIV Bilevel 30.00 07/30/17 20:00 NIV Bilevel 30 07/30/17 20:00 86 23 184/58 (100) 100 NIV Bilevel 30.00 07/30/17 19:00 79 26 171/63 (99) 100 NIV Bilevel 30.00 07/30/17 19:00 79 07/30/17 18:29 87 21 100 30.00 07/30/17 18:00 81 26 184/58 (100) 98 NIV Bilevel 30.00 07/30/17 17:00 85 27 199/62 (107) 100 NIV Bilevel 30.00 07/30/17 16:15 NIV Bilevel 30 07/30/17 16:00 83 24 100 30.00 07/30/17 16:00 91 28 220/72 (121) 97 NIV Bilevel 30.00 07/30/17 15:00 92 24 157/77 (103) 99 NIV Bilevel 30.00 07/30/17 14:12 90 21 100 30.00 07/30/17 14:00 92 18 203/71 (115) 100 NIV Bilevel 30.00 07/30/17 13:02 96 17 100 30.00 07/30/17 13:00 97 07/30/17 13:00 97 25 210/74 (119) 100 NIV Bilevel 30.00 07/30/17 12:00 NIV Bilevel 30 07/30/17 12:00 101 18 196/71 (112) 100 NIV Bilevel 30.00 07/30/17 11:31 97.9 07/30/17 11:00 100 25 207/71 (116) 100 NIV Bilevel 30.00 07/30/17 10:15 97 30 98 30.00 07/30/17 10:00 96 21 188/53 (98) 99 NIV Bilevel 30.00 07/30/17 09:40 NIV Bilevel 30.00 07/30/17 09:00 137 23 177/48 (91) 93 Vapotherm 40.00 25.00 07/30/17 08:30 Vapotherm 25.00 40 07/30/17 08:18 97 Vapotherm 25.00 40 07/30/17 08:00 97.8 Vapotherm 40.00 25.00 07/30/17 08:00 91 23 165/42 (83) 99 Vapotherm 40.00 25.00 07/30/17 07:00 92 17 148/46 (80) 91 NIV Bilevel 30.00 07/30/17 07:00 92 I & O 07/31/17 07:00 Intake Total 1815 ml Output Total 2725 ml Balance -910 ml General Appearance: Anxious, Mild Distress HEENT: PERRL/EOMI, Normal ENT Inspection Neck: Full Range of Motion, Normal Inspection, Non Tender, Supple, Carotid Bruit Respiratory: Accessory Muscle Use (mild), Other (scattered rhonchi stable decrease in breath sounds in the right base no wheezing noted.) Cardiovascular: Regular Rate, Rhythm, No Edema, No Gallop, No JVD, No Murmur, Normal Peripheral Pulses Capillary Refill: Less Than 3 Seconds Gastrointestinal: normal bowel sounds, soft, no organomegaly, no pulsatile mass Extremity: Other (stable 2+ edema of all extremities extremities are warm with normal capillary refill) Neurologic/Psychiatric: Alert Skin: Pallor Lymphatic: No Adenopathy Results Lab Laboratory Tests 07/30/17 04:20 07/30/17 10:28 07/31/17 04:40 Assessment/Plan Assessment/Plan Acute respiratory failure -SVNs --Change SVNs to Q2 -Solumedrol 40 Q12-- change to prednisone 60mg daily (pt was on 40mg daily as out patient) -Morphine PRN Acute renal failure -improved Hypernatremia - D5W Anemia -cont to montior Anxiety -Risperdal , morphine, Ativan Back spasms -hx Churg Kunal -Pt follows with [facility] pulm/infectious disease Chronic elevation of right diaphragm with atelectasis pneumonia with Pseudomonas -Cefepime - D/C Immunosuppression hx Debility -consult PT/OT -hx of stable BETHANY nodule per CT scan Advance activity. UP to chair BID. Transfer to 4th floor with tele 233 Clinical Quality Measures DVT/VTE Risk/Contraindication: Risk Factor Score Per Nursin RFS Level Per Nursing on Admit: 3=High MEDINA VILLEGAS DO Jul 31, 2017 06:40
[2017-07-31] MEDS ORDERED: KCL 20 MEQ TAB (K-DUR) PO NR ×2 (06:45→09:00)
[2017-07-31] MEDS ORDERED: FUROSEMIDE 40 MG/4 ML INJ (LASIX) IVP NR (06:45)
[2017-07-31] MEDS ORDERED: LORazepam INJ 2 MG/ML (ATIVAN) VIAL IVP PRN (07:00)
--- NOTE | 2017-07-31 07:27 | Diagnostic Imaging Report ---
INDICATION: Dyspnea. COMPARISON: 07/30/2017. FINDINGS: Single frontal radiographic view of the chest was obtained and again demonstrates bilateral airspace disease, right greater than left. Overall, aeration is not significantly changed. There is persistent elevation of the right hemidiaphragm. No large effusions are identified. No pneumothorax is identified on either side. Cardiac silhouette remains prominent. Pulmonary vasculature is within normal limits. Bony structures show no gross acute abnormalities. IMPRESSION: 1. Stable exam of the chest showing bilateral infiltrates, right greater than left. 2. Persistent asymmetric elevation of right hemidiaphragm. Dictated by: Dictated on workstation # [id number]
--- NOTE | 2017-07-31 08:18 | Progress Note-Hospitalist ---
Subjective HPI/CC On Admission Date Seen by Provider: Jul 31, 2017 Time Seen by Provider: 07:50 Mr. 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 Initially sputum was clear but then it became colored. He increase his prednisone from 20 mg to 40 mg daily and presented to my office on the . There he did have significant wheezing but was maintaining saturations on room air 95-96 percent. He did not wish to be admitted to the hospital at that time so he was discharged on Levaquin. He has a past history of Pseudomonas that was pansensitive cultured from a venous insufficiency ulcer but also required hyperbaric oxygen therapy on his right lower extremity. It has been improving through wound care but at one point was quite large and he still has a significant area of skin breakdown although he does have pink granulation tissue no increase in pain and they have been pleased as of late with wound healing. He called my office the afternoon of the reporting the onset of severe left-sided chest pain worse with breathing worse with cough that actually followed a paroxysm of cough. It was too painful to take deep breaths and he was feeling more short of breath. Sputum culture obtained as an outpatient was growing Pseudomonas on admission but sensitivities were not yet available. He is at high risk for progression to overt respiratory failure and was admitted to the intensive care unit for close monitoring and further therapeutics. Past medical history is most significant for Churg-Nils tenting as pulmonary hemorrhage in 2001. Other than prednisone his only other medication is IVIG. He has a history of disseminated histoplasmosis for which she has been on voriconazole for the past several years continues to have elevated androgen levels and urine and blood. They have been controlled however with chronic suppressive voriconazole therapy. He follows at for his pulmonary and infectious disease issues. 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 He has been on Forteo as of late but I did have concerns over possible cough related rib fracture considering this history. Subjective/Events-last exam still extremely weak but feeling better. With Mya lift was able to tolerate sitting up in the chair for 5 or 6 hours yesterday. A little more sputum production nonpurulent. Tolerated IVIG with usual reports of fatigue. Feels like napping for 2-3 hours after his dose. Objective Exam Vital Signs Vital Sign - Last 12Hours 07/25/17 00:00 Temp 98.6 Pulse 79 Resp 17 B/P (MAP) 136/52 (80) Pulse Ox 93 O2 Delivery Mechanical Ventilator O2 Flow Rate 70.00 FiO2 50 Capillary Refill : Less Than 3 Seconds General Appearance: Anxious, Chronically ill Respiratory: No Accessory Muscle Use, No Respiratory Distress, Other (few scattered rhonchi without wheezing on regular respiration. Minich breath sounds in both bases.) Cardiovascular: Regular Rate, Rhythm, No Edema, No Gallop, No JVD, No Murmur, Normal Peripheral Pulses Gastrointestinal: Normal Bowel Sounds, No Organomegaly, No Pulsatile Mass, Non Tender, Soft Results/Procedures Lab Laboratory Tests 07/30/17 10:28 07/31/17 04:40 Assessment/Plan Assessment and Plan Assess & Plan/Chief Complaint 1. Pseudomonas bronchitis with acute exacerbation of underlying lung disease with secondary respiratory failure. patient now off mechanical ventilation tolerating BiPAP with no exercise reserve for the remainder of today and until repeat evaluation tomorrow we will just have physical therapy with assistance have the patient sit on the edge of the bed due to his poor tolerance of transfer. slow improvement I agree with transfer to floor and tapering to by mouth prednisone. Due to reported somnolence with IVIG will transfer to at bedtime dosing... .. 2.Churg-Kunal/EGPA acute flare doubtful continue his monthly IVIG Patient will be receiving IVIG per usual protocol 2 hour infusion daily 4 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 4. Left chest wall pain favor muscle spasm as it is a little more diffuse than one would expect for occult rib fracture as well as minimal improvement on morphine will add IV Norflex patient warned about sedation continue O2 sat monitoring continuous. 5. Slowly increasing BUN and creatinine compatible with relative intravascular volume depletion improving likely due to improved oxygenation status. Complex medical management. 6. Epigastric pain with decreasing white count doubt underlying infectious etiology. We'll continue proton pump inhibitor therapy. [facility] did not suggest underlying obstruction ileus favored likely improving as the patient is beginning to pass gas. 7. History of osteoporosis on Forteo will resume injections. ERIC ADAM MD Jul 31, 2017 08:18
[2017-07-31] MEDS: VORICONAZOLE 200 MG TAB (VFEND) NON-FORMULARY PO SCH ×2 (08:39→20:34)
[2017-07-31] MEDS: predniSONE 20 MG TAB PO SCH (08:39)
[2017-07-31] MEDS: LOSARTAN 25 MG (COZAAR) TAB PO SCH (08:40)
[2017-07-31] MEDS: LORATADINE (CLARITIN) 10 MG TAB PO SCH (08:40)
[2017-07-31] MEDS: PANTOPRAZOLE 40 MG/10 ML (PROTONIX) VIAL IV SCH (08:41)
[2017-07-31] MEDS: POLYETHYLENE GLYCOL 17 GM (MIRALAX) PACK PO SCH ×2 (08:42→19:46)
[2017-07-31] MEDS: RT-BUDESONIDE NEBS 0.5 MG/2ML (PULMICORT) AMP INH SCH ×2 (08:54→22:05)
[2017-07-31] MEDS: SIMETHICONE 80 MG (MYLICON) CHEW PO SCH ×4 (08:58→20:34)
[2017-07-31] MEDS: inSUlin DETERMIR 1 UNIT/0.01 ML (LEVEMIR) CHARGE PER UNIT SQ SCH ×2 (08:58→21:19)
[2017-07-31] MEDS: TERIPARATIDE 600 MCG/2.4 ML (FORTEO) SYR SQ SCH (08:59)
--- NOTE | 2017-07-31 09:43 | Physical Therapy Daily Note ---
PT Daily Note-Current Subjective Patient is very alert and agreeable to participate with PT. Pain Numeric Pain Scale: 0-No Pain Location: No Pain Reported Mental Status Patient Orientation: Normal For Age Attachments: Oxygen (vapotherm), Garcia Catheter, IV Transfers Functional [place] Measure 0=Not Assessed/NA 4=Minimal Assistance 1=Total Assistance 5=Supervision or Setup 2=Maximal Assistance 6=Modified [place] 3=Moderate Assistance 7=Complete IndependenceIRFPAI Quality Coding Scale 6 Independent with activity with or without an assistive device 5 Patient requires set up or clean up by helper. Patient completes activity by themselves 4 Supervision or touching assist (CGA). [place] provide cues , steadying assist 3 The helper provides less than half the effort to complete the activity 2 The helper provides more than half the effort to complete the activity 1 Dependent. The helper does all the effort to complete an activity 7 Patient refused to complete or attempt activity 9 The patient did not perform the activity before the current illness or injury 88 Not attempted due to Medical conditions or safety concerns Transfers (B, C, W/C) (FIM): 1 Scootin Rollin Supine to/from Sit: 2 Sit to/from Stand: 1 Bed to/from Chair: 1 Patient is max assist with sitting to EOB and he is able to maintain seated EOB independently x 20 min while performing bilateral LE exercises. PT placed jeff sling in chair to use for nursing is he wants to return to bed. Dependent assist with SPT bed to recliner with RN steve. Weight Bearing Right Lower Extremity: Right Full Weight Bearing Left Lower Extremity: Left Full Weight Bearing Exercises Supine Ex: Ankle pumps, Quad Set, Heel Slides Supine Reps: 5 (AAROM HS bilaterally) Seated Therapy Exercises: Ankle pumps, Long arc quads Seated Reps: 10 (3 sets) Assessment Patient continues to be extremely weak requiring max to dependent assist, however, is improving. PT will increase frequency to BID M-F and Daily on Friday. Patient is very agreeable with this. PT Short Term Goals Short Term Goals Transfers (B,C,W/C) (FIM): 3 PT Saw Man Goals Saw Man Goals PT Saw Man Goals Time Frame: Aug 15, 2017 Transfers (B,C,W/C) (FIM): 6 Gait (FIM): 6 Gait distance (FIM): 3=150 ft Distance: 200' Gait Level of Assist: 6 Gait Assistive Device: FWW Stairs (FIM): 6 # of Steps: 12 Stairs Level Of Assist: 6 PT Plan Treatment/Plan Treatment Plan: Continue Plan of Care Treatment Plan: Bed Mobility, Education, Functional Activity [place]son, Functional Strength, Gait, Safety, Therapeutic Exercise, Transfers Treatment Duration: Aug 15, 2017 Frequency: 6 times per week Estimated Hrs Per Day: .5 hour per day Patient and/or Family Agrees t: Yes Time/GCodes Time In: 815 Time Out: 843 Total Billed Treatment Time: 28 Total Billed Treatment 1 visit FA x 2 28 min LYLA BLOUNT PT Jul 31, 2017 09:43
[2017-07-31] MEDS ORDERED: IVIG 20 GM (PRIVIGEN) 200 ML IV SCH ×2 (10:00→21:00)
[2017-07-31] MEDS ORDERED: IVIG 10 GM (PRIVIGEN) 100 ML IV SCH (10:00)
--- NOTE | 2017-07-31 13:37 | Physical Therapy Daily Note ---
PT Daily Note-Current Subjective Patient requests to return to home. Pain Numeric Pain Scale: 0-No Pain Location: No Pain Reported Mental Status Patient Orientation: Normal For Age Attachments: Oxygen (vapotherm) Transfers Functional [place] Measure 0=Not Assessed/NA 4=Minimal Assistance 1=Total Assistance 5=Supervision or Setup 2=Maximal Assistance 6=Modified [place] 3=Moderate Assistance 7=Complete IndependenceIRFPAI Quality Coding Scale 6 Independent with activity with or without an assistive device 5 Patient requires set up or clean up by helper. Patient completes activity by themselves 4 Supervision or touching assist (CGA). [place] provide cues , steadying assist 3 The helper provides less than half the effort to complete the activity 2 The helper provides more than half the effort to complete the activity 1 Dependent. The helper does all the effort to complete an activity 7 Patient refused to complete or attempt activity 9 The patient did not perform the activity before the current illness or injury 88 Not attempted due to Medical conditions or safety concerns Transfers (B, C, W/C) (FIM): 1 Scootin Rollin Supine to/from Sit: 1 Sit to/from Stand: 1 Bed to/from Chair: 1 attempted the sit to stand lift to transfer recliner to chair. Due to extreme fatigue, patient was not able to actively utilize this lift appropriately. Weight Bearing Right Lower Extremity: Right Full Weight Bearing Left Lower Extremity: Left Full Weight Bearing Assessment Patient required time to complete functional tasks. Patient did have increase anxiety and SOA, however, SAO2 remained 95% on vapotherm and patient was able to recover with breathing techniques. PT Short Term Goals Short Term Goals Transfers (B,C,W/C) (FIM): 3 PT Mcc Goals Wheat Washer Goals PT Wheat Washer Goals Time Frame: Aug 15, 2017 Transfers (B,C,W/C) (FIM): 6 Gait (FIM): 6 Gait distance (FIM): 3=150 ft Distance: 200' Gait Level of Assist: 6 Gait Assistive Device: FWW Stairs (FIM): 6 # of Steps: 12 Stairs Level Of Assist: 6 PT Plan Treatment/Plan Treatment Plan: Continue Plan of Care Treatment Plan: Bed Mobility, Education, Functional Activity [place], Functional Strength, Gait, Safety, Therapeutic Exercise, Transfers Treatment Duration: Aug 15, 2017 Frequency: 6 times per week Estimated Hrs Per Day: .5 hour per day Patient and/or Family Agrees t: Yes Time/GCodes Time In: 1230 Time Out: 1253 Total Billed Treatment Time: 23 Total Billed Treatment 1 visit FA x 2 23 min LYLA BLOUNT PT Jul 31, 2017 13:37
--- NOTE | 2017-07-31 14:41 | Diagnostic Imaging Report ---
INDICATION: PICC line placement. Time of exam 2:27 PM Correlation is made with prior study earlier the same day. Left upper extremity PICC line appears to have the tip overlying the left innominate vein. Similar to earlier. Right hemidiaphragmatic elevation is seen. Airspace infiltrate right lung is similar. There is no pneumothorax. There may be a small amount of pleural fluid on the right. IMPRESSION: Left upper extremity PICC line has tip overlying the left innominate vein, similar to chest radiograph earlier the same day. Report was called to [place] office of Dr. Cox by courtney at 2:44 p.m. Dictated by: Dictated on workstation # [id number]
--- NOTE | 2017-07-31 14:50 | Occ Therapy Progress Note ---
Therapy Progress Note Pt. in bed. Has been moved to fourth floor. Pt. alert and oriented. Pt. in good spirits but states that his PICC line is coming out. OT confirms with nursing that waiting on testing to be conducted to determine what the next step is for PICC line placement. Nursing requests for no theraband exercises at this time. OT issues red theraband and educates pt. in exercises for later, as well as issues therapy sponge for increased fine motor strengthening. Pt. does show OT that he is fully able to touch thumb to fingers today, as he could not do this yesterday. Do note pitting edema in right forearm, as it had decreased yesterday. Pt. is encouraged on arm movement when given the "all clear" after PICC involvement is determined. Pt. verbalizes understanding. OT will check back on pt. today as time allows. [id number] 1, EX ALISSA SERRA OT Jul 31, 2017 14:50
[2017-07-31] MEDS: ENOXAPARIN 40 MG/0.4 ML (LOVENOX) SYR SC SCH (18:06)
[2017-07-31] MEDS ORDERED: RT-ALBUTEROL/IPRATROPIUM 3 ML (DUONEB) VIAL INH PRN (20:15)
[2017-07-31] MEDS ORDERED: D5W 500 ML IV SOLUTION 500 ML IV SCH (20:30)
[2017-07-31] MEDS: ACETAMINOPHEN 500 MG TAB (TYLENOL) PO SCH (20:34)
[2017-07-31] MEDS ORDERED: IVIG 5 GM (PRIVIGEN) 50 ML IV SCH (21:00)
[2017-07-31] MEDS: RT-ALBUTEROL/IPRATROPIUM 3 ML (DUONEB) VIAL INH SCH (22:05)
[2017-08-01] VITALS (15 sets, daily range): BP systolic 111–176; BP diastolic 64–107
[2017-08-01] MEDS: DILTIAZEM 60 MG (CARDIZEM) TAB PO SCH ×5 (00:45→17:35)
[2017-08-01] MEDS: aCETylcysteine 20% (MUCOMYST) 30ML SOLN VIAL INH SCH ×6 (02:00→22:28)
[2017-08-01] MEDS: RT-ALBUTEROL/IPRATROPIUM 3 ML (DUONEB) VIAL INH SCH ×6 (02:00→22:28)
[2017-08-01] MEDS: morphine INJ 4 MG/ML 1 ML (VIAL/SYRINGE) IVP PRN ×4 (02:51→13:22)
[2017-08-01] MEDS: inSUlin (REGULAR) HUMAN 1 UNIT/0.01 ML (CHARGE PER UNIT) SC SCH ×4 (05:27→20:58)
[2017-08-01] MEDS: KCL 20 MEQ TAB (K-DUR) PO NR (05:36)
[2017-08-01] MEDS: predniSONE 20 MG TAB PO SCH (05:37)
[2017-08-01 05:49] LABS: BASOPHILS % (AUTO) 0 % (0-10); EOSINOPHILS % (AUTO) 0 % (0-10); HEMATOCRIT 28 % (40-54); HEMOGLOBIN 8.6 G/DL (13.3-17.7); LYMPHOCYTES # (AUTO) 1.1 X 10^3 (1.0-4.0); LYMPHOCYTES % (AUTO) 5 % (12-44); MEAN CORPUSCULAR HEMOGLOBIN 28 PG (25-34); MEAN CORPUSCULAR HGB CONC 30 G/DL (32-36); MEAN CORPUSCULAR VOLUME 91 FL (80-99); MEAN PLATELET VOLUME 9.6 FL (7.4-10.4); MONOCYTES # (AUTO) 1.5 X 10^3 (0.0-1.0); MONOCYTES % (AUTO) 6 % (0-12); NEUTROPHILS # (AUTO) 20.7 X 10^3 (1.8-7.8); NEUTROPHILS % (AUTO) 89 % (42-75); PLATELET COUNT 198 10^3/uL (130-400); RED BLOOD COUNT 3.12 10^6/uL (4.35-5.85); RED CELL DISTRIBUTION WIDTH 16.3 % (10.0-14.5); WHITE BLOOD COUNT 23.3 10^3/uL (4.3-11.0)
[2017-08-01 06:09] LABS: BUN/CREATININE RATIO 56; CARBON DIOXIDE 30 MMOL/L (21-32); CHLORIDE 100 MMOL/L (98-107); CREATININE SERUM 0.93 MG/DL (0.60-1.30); GFR ESTIMATED > 60; GLUCOSE 90 MG/DL (70-105); MAGNESIUM 2.1 MG/DL (1.8-2.4); PHOSPHORUS 4.3 MG/DL (2.3-4.7); POTASSIUM 4.3 MMOL/L (3.6-5.0); SODIUM 141 MMOL/L (135-145)
[2017-08-01] MEDS: RT-BUDESONIDE NEBS 0.5 MG/2ML (PULMICORT) AMP INH SCH (06:19)
[2017-08-01 06:24] LABS: ANISOCYTOSIS SLIGHT; BAND NEUTROPHILS 1 %; BASOPHILS % (MANUAL) 0 %; EOSINOPHILS % (MANUAL) 0 %; HYPOCHROMASIA SLIGHT; LYMPHOCYTES % (MANUAL) 4 %; METAMYELOCYTES % 2 %; MICROCYTOSIS SLIGHT; MONOCYTES % (MANUAL) 4 %; NEUTROPHILS % (MANUAL) 89 %; PLATELET CLUMPS SLIGHT
[2017-08-01 06:25] LABS: ROULEAUX SLIGHT
--- NOTE | 2017-08-01 07:54 | Pulmonary Progress Note ---
Subjective Time Seen by Provider: 05:43 Subjective/Events-last exam currently off BiPAP no complications noted. Exam Exam Vital Signs Date Time Temp Pulse Resp B/P (MAP) Pulse Ox O2 Delivery O2 Flow Rate FiO2 08/01/17 06:23 99 Vapotherm 25.00 100 08/01/17 04:05 90 22 90 25.00 08/01/17 04:00 97.1 90 40 161/64 (96) 99 Vapotherm 100.00 25.00 08/01/17 02:00 90 22 92 25.00 08/01/17 01:00 90 08/01/17 00:32 90 22 91 25.00 08/01/17 00:00 98.8 87 27 147/74 (98) 96 NIV Bilevel 07/31/17 22:11 91 NIV Bilevel 25.00 25 07/31/17 22:07 90 22 92 25.00 07/31/17 21:00 Vapotherm 25.00 40 07/31/17 19:49 98.6 90 18 178/84 (115) 100 Vapotherm 40.00 25.00 07/31/17 19:25 89 100 100 07/31/17 19:23 100 Vapotherm 25.00 100 07/31/17 19:00 100 07/31/17 18:11 98.8 89 25 142/75 (97) 92 Vapotherm 40.00 25.00 07/31/17 16:47 68 20 90 25.00 07/31/17 16:00 98.2 89 18 163/74 (103) 91 Vapotherm 40.00 25.00 07/31/17 13:00 89 07/31/17 12:58 96 Vapotherm 30.00 40 07/31/17 12:00 97.7 81 20 175/81 (112) 98 Vapotherm 40.00 25.00 07/31/17 10:20 98.3 77 22 168/80 (109) 98 Vapotherm 40.00 25.00 07/31/17 10:10 Vapotherm 25.00 40 07/31/17 10:00 80 26 98 Vapotherm 40.00 30.00 07/31/17 09:00 74 9 198/70 (112) 100 Vapotherm 40.00 30.00 07/31/17 08:58 100 Vapotherm 30.00 40 07/31/17 08:55 Vapotherm 30.00 40 07/31/17 08:00 74 18 182/74 (110) 96 Vapotherm 40.00 30.00 I & O 08/01/17 07:00 Intake Total 1340 ml Output Total 2950 ml Balance -1610 ml General Appearance: Anxious, Chronically ill (cushingoid as well) HEENT: PERRL/EOMI, Normal ENT Inspection Neck: Full Range of Motion, Normal Inspection, Non Tender, Supple, Carotid Bruit Respiratory: No Accessory Muscle Use, Other (few scattered rhonchi wheezing on forced expiration only not noted on regular respiration. Accessory muscle use with minimal exertion but not at rest.) Cardiovascular: Regular Rate, Rhythm, No Edema, No Gallop, No JVD, No Murmur, Normal Peripheral Pulses Capillary Refill: Less Than 3 Seconds Gastrointestinal: normal bowel sounds, soft, no organomegaly, no pulsatile mass Extremity: Other (plus upper and lower extremity edema unchanged that is 2+) Neurologic/Psychiatric: Alert Skin: Pallor Lymphatic: No Adenopathy Results Lab Laboratory Tests 07/30/17 10:28 07/31/17 04:40 08/01/17 05:30 Assessment/Plan Assessment/Plan Acute respiratory failure -SVNs --Change SVNs to Q2 - prednisone 60mg daily (pt was on 40mg daily as out patient) Acute renal failure -improved Hypernatremia - D5W Anemia -cont to montior Anxiety -Risperdal , morphine, Ativan Back spasms -hx Churg Kunal -Pt follows with [facility] pul[facility]/infectious disease Chronic elevation of right diaphragm with atelectasis pneumonia with Pseudomonas -Cefepime - D/C Immunosuppression hx Debility -consult PT/OT -hx of stable BETHANY nodule per CT scan Advance activity. UP to chair BID. 232 Clinical Quality Measures DVT/VTE Risk/Contraindication: Risk Factor Score Per Nursin RFS Level Per Nursing on Admit: 3=High MEDINA VILLEGAS DO Aug 01, 2017 07:54
[2017-08-01] MEDS: VORICONAZOLE 200 MG TAB (VFEND) NON-FORMULARY PO SCH ×2 (08:32→20:57)
[2017-08-01] MEDS: POLYETHYLENE GLYCOL 17 GM (MIRALAX) PACK PO SCH ×2 (08:32→20:58)
[2017-08-01] MEDS: LOSARTAN 25 MG (COZAAR) TAB PO SCH (08:32)
[2017-08-01] MEDS: SIMETHICONE 80 MG (MYLICON) CHEW PO SCH ×5 (08:32→20:58)
[2017-08-01] MEDS: inSUlin DETERMIR 1 UNIT/0.01 ML (LEVEMIR) CHARGE PER UNIT SQ SCH ×2 (08:33→20:57)
[2017-08-01] MEDS: LORATADINE (CLARITIN) 10 MG TAB PO SCH (08:33)
[2017-08-01] MEDS: PANTOPRAZOLE 40 MG (PROTONIX) TAB PO SCH (09:01)
[2017-08-01] MEDS: TERIPARATIDE 600 MCG/2.4 ML (FORTEO) SYR SQ SCH (09:01)
[2017-08-01] MEDS: HYDROcodone/APAP 10 MG/325 MG (LORTAB) TAB PO PRN ×2 (09:05→20:58)
--- NOTE | 2017-08-01 10:08 | Physical Therapy Progress Note ---
Therapy Progress Note PT visited with patient and spouse and all agree to not see patient on this date due to decrease in pulmonary status requiring vapotherm at 100%. Patient and spouse both want to wait on Dr. Cox on POC. 1 visit LYLA BLOUNT PT Aug 01, 2017 10:08
--- NOTE | 2017-08-01 11:58 | Occ Therapy Progress Note ---
Therapy Progress Note Attempted to see pt with nrsg. Nrsg came to assess PICC line then ordered chest x-ray to check on PICC line placement. Unable to see pt at this time. 1 visit-1040 KAMRON GELLER Aug 01, 2017 11:58
[2017-08-01] MEDS ORDERED: BUMETANIDE 1 MG/4 ML (BUMEX) VIAL IV NR ×2 (12:31→17:15)
--- NOTE | 2017-08-01 12:40 | Diagnostic Imaging Report ---
Indication: PICC line placement. TIME OF EXAM: 12:21 PM COMPARISON: Correlation is made with prior study one day earlier. FINDINGS: Left upper extremity PICC line has its tip overlying the upper SVC. Right hemidiaphragm is chronically elevated. Bibasilar infiltrates or atelectasis are noted. There is no pneumothorax. IMPRESSION: PICC line location, as described. Dictated by: Dictated on workstation # [id number]
--- NOTE | 2017-08-01 12:45 | Progress Note-Hospitalist ---
Subjective HPI/CC On Admission Date Seen by Provider: Aug 01, 2017 Time Seen by Provider: 11:30 Mr. 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 Initially sputum was clear but then it became colored. He increase his prednisone from 20 mg to 40 mg daily and presented to my office on the . There he did have significant wheezing but was maintaining saturations on room air 95-96 percent. He did not wish to be admitted to the hospital at that time so he was discharged on Levaquin. He has a past history of Pseudomonas that was pansensitive cultured from a venous insufficiency ulcer but also required hyperbaric oxygen therapy on his right lower extremity. It has been improving through wound care but at one point was quite large and he still has a significant area of skin breakdown although he does have pink granulation tissue no increase in pain and they have been pleased as of late with wound healing. He called my office the afternoon of the reporting the onset of severe left-sided chest pain worse with breathing worse with cough that actually followed a paroxysm of cough. It was too painful to take deep breaths and he was feeling more short of breath. Sputum culture obtained as an outpatient was growing Pseudomonas on admission but sensitivities were not yet available. He is at high risk for progression to overt respiratory failure and was admitted to the intensive care unit for close monitoring and further therapeutics. Past medical history is most significant for Churg-Nils tenting as pulmonary hemorrhage in 2001. Other than prednisone his only other medication is IVIG. He has a history of disseminated histoplasmosis for which she has been on voriconazole for the past several years continues to have elevated androgen levels and urine and blood. They have been controlled however with chronic suppressive voriconazole therapy. He follows at for his pulmonary and infectious disease issues. 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 He has been on Forteo as of late but I did have concerns over possible cough related rib fracture considering this history. Subjective/Events-last exam Pt. feeling more SOB today reports this happens during IVIG even when well.he reports scant sputum production which continues to be clear. He's had no chills or fever. Infiltrates on chest x-ray been stable his white count however is up to 23,000. They did have to go up on oxygen 200 percent earlier. He is able to speak in full sentences and currently last saturation was 92 percent. He doesn't feel bad enough yet to consider going back on mechanical ventilation. During interview he was alert and oriented to But not using accessory muscles or respiration. Respiratory rate 25 Objective Exam Vital Signs Vital Sign - Last 12Hours 07/26/17 07/26/17 00:00 00:07 Temp 98.4 Pulse 71 Resp 16 B/P (MAP) 142/61 (88) Pulse Ox 98 O2 Delivery Mechanical Ventilator O2 Flow Rate 45.00 FiO2 50 Capillary Refill : Less Than 3 Seconds General Appearance: Chronically ill, Mild Distress Respiratory: Other (anteriorly on right chest is clear there are some scattered rhonchi on the left. Absent breath sounds right base unchanged diminished breath sounds left base) Cardiovascular: Regular Rate, Rhythm, No Edema, No Gallop, No JVD, No Murmur, Normal Peripheral Pulses Gastrointestinal: Normal Bowel Sounds, No Organomegaly, No Pulsatile Mass, Non Tender, Soft Extremity: Normal Range of Motion, Other (overall edema continues to decrease. There is 2+ the lower extremities trace to 1+ upper extremities.) Results/Procedures Lab Laboratory Tests 08/01/17 05:30 Assessment/Plan Assessment and Plan Assess & Plan/Chief Complaint 1. Pseudomonas bronchitis with acute exacerbation of underlying lung disease with secondary respiratory failure former resolved. Patient is more short of breath today and as he reports that he usually feels more short of breath during IVIG and then gets a bump to feeling better than baseline usually 24 hours after injection will hold IVIG. We will resume by mouth bumetanide and as renal function continues to improve and sodium levels normalized DC D5. There does not appear to be evidence for recurring pneumonia. If sputum does become purulent we'll need to reculture and consider resuming antibiotic therapy. If there is continued deterioration respiratory status will require readmission to the intensive care unit for mechanical ventilation... .. 2.Churg-Kunal/EGPA acute flare doubtful continue his monthly IVIG Patient will be receiving IVIG per usual protocol 2 hour infusion daily 4 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 4. Left chest wall pain favor muscle spasm as it is a little more diffuse than one would expect for occult rib fracture as well as minimal improvement on morphine will add IV Norflex patient warned about sedation continue O2 sat monitoring continuous. 5. Slowly increasing BUN and creatinine compatible with relative intravascular volume depletion improving likely due to improved oxygenation status. Complex medical management. 6. Epigastric pain with decreasing white count doubt underlying infectious etiology. We'll continue proton pump inhibitor therapy. KUB did not suggest underlying obstruction ileus favored likely improving as the patient is beginning to pass gas. 7. History of osteoporosis on Forteo will resume injections. EIRC ADAM MD Aug 01, 2017 12:45
--- NOTE | 2017-08-01 13:15 | Physical Therapy Progress Note ---
Therapy Progress Note Per Dr. Cox, patient to remain at rest in bed due to labored breathing. PT will check patient status in a.m. LYLA BLOUNT PT Aug 01, 2017 13:14
[2017-08-01] MEDS: meTOprolol 5 MG/5 ML (LOPRESSOR) VIAL IV PRN (15:14)
[2017-08-01 16:18] LABS: HEMOGLOBIN 9.9 G/DL (13.3-17.7); MEAN PLATELET VOLUME 9.9 FL (7.4-10.4); RED BLOOD COUNT 3.57 10^6/uL (4.35-5.85); RED CELL DISTRIBUTION WIDTH 16.6 % (10.0-14.5)
--- NOTE | 2017-08-01 16:19 | Diagnostic Imaging Report ---
PATIENT HISTORY: Dyspnea. TECHNIQUE: Single frontal view of the chest. COMPARISON: 12:21 PM on the same day. FINDINGS: There is marked elevation of the right hemidiaphragm, which appears stable. Bibasilar airspace opacities are again seen. There is no pneumothorax. The cardiac silhouette is obscured. The tip of the right PICC line projects over the expected region of the upper SVC, directed to the right. There is a right pleural effusion. IMPRESSION: 1. Persistent marked elevation of the right hemidiaphragm with bibasilar airspace opacities and right pleural effusion. Dictated by: Dictated on workstation # [id number]
[2017-08-01 16:20] LABS: ABG BASE EXCESS 8.5 MMOL/L (-2.5-2.5); ABG OXYGEN SATURATION 99 % (94-100); ABG PCO2 50 MMHG (35-45); ABG PH 7.44 (7.37-7.43); ABG PO2 96 MMHG (79-93); ABG TCO2 34.4 MMOL/L (21.0-31.0)
[2017-08-01 16:21] LABS: ALLENS TEST POSITIVE; INSPIRED O2 85% BIPAP; PATIENT TEMP 99.3; VENTILATOR NO
[2017-08-01 16:37] LABS: BUN/CREATININE RATIO 51; CARBON DIOXIDE 30 MMOL/L (21-32); CHLORIDE 100 MMOL/L (98-107); CREATININE SERUM 0.96 MG/DL (0.60-1.30); GFR ESTIMATED > 60; MAGNESIUM 1.8 MG/DL (1.8-2.4); PHOSPHORUS 4.1 MG/DL (2.3-4.7); POTASSIUM 4.8 MMOL/L (3.6-5.0); SODIUM 140 MMOL/L (135-145)
[2017-08-01 16:39] LABS: GLUCOSE 44 MG/DL (70-105)
[2017-08-01] MEDS: ENOXAPARIN 40 MG/0.4 ML (LOVENOX) SYR SC SCH (17:36)
[2017-08-01] MEDS: guaiFENesin/DM (ROBITUSSIN DM) 10 ML UDC PO PRN (20:58)
[2017-08-01] MEDS: ACETAMINOPHEN 500 MG TAB (TYLENOL) PO SCH (20:58)
[2017-08-01] MEDS: risperiDONE 0.25 MG (RisperDAL) TAB PO SCH (20:58)
[2017-08-01] MEDS ORDERED: IMMUNE GLOBULIN IV SCH (21:00)
[2017-08-01] MEDS ORDERED: GAMMAGARD IV SCH ×2 (21:00)
[2017-08-02] VITALS (30 sets, daily range): BP systolic 94–194; BP diastolic 40–99
[2017-08-02] MEDS: DILTIAZEM 60 MG (CARDIZEM) TAB PO SCH (00:14)
[2017-08-02] MEDS: RT-BUDESONIDE NEBS 0.5 MG/2ML (PULMICORT) AMP INH SCH ×3 (00:46→20:32)
[2017-08-02] MEDS: aCETylcysteine 20% (MUCOMYST) 30ML SOLN VIAL INH SCH ×6 (02:28→22:02)
[2017-08-02] MEDS: RT-ALBUTEROL/IPRATROPIUM 3 ML (DUONEB) VIAL INH SCH ×6 (02:28→22:02)
[2017-08-02 04:34] LABS: BASOPHILS % (AUTO) 0 % (0-10); EOSINOPHILS % (AUTO) 0 % (0-10); HEMATOCRIT 28 % (40-54); HEMOGLOBIN 8.3 G/DL (13.3-17.7); LYMPHOCYTES # (AUTO) 0.6 X 10^3 (1.0-4.0); LYMPHOCYTES % (AUTO) 4 % (12-44); MEAN CORPUSCULAR HEMOGLOBIN 27 PG (25-34); MEAN CORPUSCULAR HGB CONC 30 G/DL (32-36); MEAN CORPUSCULAR VOLUME 91 FL (80-99); MEAN PLATELET VOLUME 10.1 FL (7.4-10.4); MONOCYTES # (AUTO) 0.3 X 10^3 (0.0-1.0); MONOCYTES % (AUTO) 2 % (0-12); NEUTROPHILS # (AUTO) 13.6 X 10^3 (1.8-7.8); NEUTROPHILS % (AUTO) 94 % (42-75); PLATELET COUNT 122 10^3/uL (130-400); RED BLOOD COUNT 3.04 10^6/uL (4.35-5.85); RED CELL DISTRIBUTION WIDTH 16.6 % (10.0-14.5); WHITE BLOOD COUNT 14.5 10^3/uL (4.3-11.0)
[2017-08-02 05:31] LABS: BUN/CREATININE RATIO 52; CALCIUM 8.9 MG/DL (8.5-10.1); CARBON DIOXIDE 32 MMOL/L (21-32); CHLORIDE 99 MMOL/L (98-107); CREATININE SERUM 1.02 MG/DL (0.60-1.30); GFR ESTIMATED > 60; GLUCOSE 64 MG/DL (70-105); MAGNESIUM 1.8 MG/DL (1.8-2.4); PHOSPHORUS 3.8 MG/DL (2.3-4.7); POTASSIUM 4.4 MMOL/L (3.6-5.0); SODIUM 142 MMOL/L (135-145)
[2017-08-02] MEDS ORDERED: BUMETANIDE 1 MG/4 ML (BUMEX) VIAL IV ONE (05:45)
--- NOTE | 2017-08-02 05:46 | Pulmonary Progress Note ---
Subjective Time Seen by Provider: 05:45 Subjective/Events-last exam PT was transferred to ICU last night secondary to worsening SOB/ respiratory distress. I had RN give 2mg of IV Bumex. Exam Exam Vital Signs Date Time Temp Pulse Resp B/P (MAP) Pulse Ox O2 Delivery O2 Flow Rate FiO2 08/02/17 04:32 85 19 99 75.00 08/02/17 04:00 97.7 08/02/17 02:28 94 31 98 75.00 08/02/17 01:00 88 08/02/17 00:46 80 19 96 75.00 08/02/17 00:00 84 19 94/60 (71) 95 NIV Bilevel 75.00 08/01/17 23:00 87 25 111/71 (84) 96 NIV Bilevel 75.00 08/01/17 22:28 89 27 99 85.00 08/01/17 22:00 90 25 119/67 (84) 97 NIV Bilevel 85.00 08/01/17 21:00 99 33 139/78 (98) 98 NIV Bilevel 85.00 08/01/17 20:57 100 32 98 85.00 08/01/17 20:00 NIV Bilevel 85 08/01/17 20:00 94 25 114/72 (86) 99 NIV Bilevel 85.00 08/01/17 20:00 NIV Bilevel 85 08/01/17 19:43 98.3 NIV Bilevel 85.00 08/01/17 19:01 100 33 98 85.00 08/01/17 19:00 102 08/01/17 19:00 99 32 137/87 (104) 98 NIV Bilevel 85.00 08/01/17 18:00 101 10 98 NIV Bilevel 85.00 08/01/17 17:00 99 130/96 (107) 98 NIV Bilevel 85.00 08/01/17 16:00 99.3 96 142/107 (119) 96 NIV Bilevel 85.00 08/01/17 15:30 99.3 18 15:00 100.4 123 33 144/77 (99) 91 NIV Bilevel 100.00 08/01/17 15:00 91 NIV Bilevel 100 08/01/17 14:27 115 38 72 60.00 08/01/17 13:29 105 30 91 25.00 08/01/17 13:00 89 2/2/18 13:00 101 08/01/17 12:50 98 30 92 25.00 08/01/17 12:30 98.3 91 30 176/68 (104) 93 NIV Bilevel 08/01/17 10:29 90 Vapotherm 25.00 100 08/01/17 10:28 Vapotherm 25.00 100 08/01/17 09:00 Vapotherm 25.00 100 08/01/17 08:30 97.2 86 22 175/70 (105) 98 Vapotherm 100.00 25.00 08/01/17 07:00 90 08/01/17 06:23 99 Vapotherm 25.00 100 I & O 08/02/17 06:59 Intake Total 570 ml Output Total 1325 ml Balance -755 ml General Appearance: Anxious, Chronically ill (cushingoid as well) HEENT: PERRL/EOMI, Normal ENT Inspection Neck: Full Range of Motion, Normal Inspection, Non Tender, Supple, Carotid Bruit Respiratory: No Accessory Muscle Use, Other (few scattered rhonchi wheezing on forced expiration only not noted on regular respiration. Accessory muscle use with minimal exertion but not at rest.) Cardiovascular: Regular Rate, Rhythm, No Edema, No Gallop, No JVD, No Murmur, Normal Peripheral Pulses Capillary Refill: Less Than 3 Seconds Gastrointestinal: normal bowel sounds, soft, no organomegaly, no pulsatile mass Extremity: Other (plus upper and lower extremity edema unchanged that is 2+) Neurologic/Psychiatric: Alert Skin: Pallor Lymphatic: No Adenopathy Results Lab Laboratory Tests 08/01/17 05:30 08/01/17 16:10 08/02/17 04:25 Assessment/Plan Assessment/Plan Acute respiratory failure -SVNs --Change SVNs to Q2 - prednisone 60mg daily (pt was on 40mg daily as out patient) -Change back to Solumedrol 40 IV Q 12 -Give another bumex 2mg IV x 1 -Pt is requiring BiPAP currently will see how he does off BiPAP today Acute renal failure -improved -Monitor Anemia -cont to montior Anxiety -Risperdal , morphine, Ativan Back spasms -hx Churg Kunal -Pt follows with [facility] pul[facility]/infectious disease Chronic elevation of right diaphragm with atelectasis pneumonia with Pseudomonas -Cefepime - D/C Immunosuppression hx Debility -PT/OT -hx of stable BETHANY nodule per CT scan Advance activity. UP to chair BID. 233 Clinical Quality Measures DVT/VTE Risk/Contraindication: Risk Factor Score Per Nursin RFS Level Per Nursing on Admit: 3=High MEDINA VILLEGAS DO Aug 02, 2017 05:46
[2017-08-02] MEDS: KCL 20 MEQ TAB (K-DUR) PO SCH ×2 (06:09→06:10)
[2017-08-02] MEDS: inSUlin (REGULAR) HUMAN 1 UNIT/0.01 ML (CHARGE PER UNIT) SC SCH ×4 (06:09→21:49)
[2017-08-02] MEDS: POTASSIUM CL 10MEQ/50ML IVPB 50 ML IV SCH (06:10)
[2017-08-02] MEDS: MAGNESIUM 1 GM/100 ML IVPB 100 ML IV SCH (06:10)
[2017-08-02] MEDS: PANTOPRAZOLE 40 MG (PROTONIX) TAB PO SCH (06:41)
[2017-08-02] MEDS: KCL 20 MEQ TAB (K-DUR) PO NR (06:42)
[2017-08-02] MEDS: POLYETHYLENE GLYCOL 17 GM (MIRALAX) PACK PO SCH ×2 (09:00→21:51)
[2017-08-02] MEDS ORDERED: inSUlin DETERMIR 1 UNIT/0.01 ML (LEVEMIR) CHARGE PER UNIT SQ SCH (09:00)
[2017-08-02 09:15] LABS: ABG BASE EXCESS 10.3 MMOL/L (-2.5-2.5); ABG OXYGEN SATURATION 89 % (94-100); ABG PCO2 51 MMHG (35-45); ABG PH 7.45 (7.37-7.43); ABG PO2 51 MMHG (79-93); ABG TCO2 36.6 MMOL/L (21.0-31.0)
[2017-08-02 09:17] LABS: ALLENS TEST YES-POS; PATIENT TEMP 96.9; VENTILATOR NO
--- NOTE | 2017-08-02 09:28 | Diagnostic Imaging Report ---
INDICATION: Pneumonia. Exam compared one day prior. FINDINGS: Right diaphragmatic elevation remains. Perihilar and lower lobe airspace disease left greater than right is improved. The upper lobes clear. IMPRESSION: Bilateral lower lobe pneumonia has improved. Elevated right diaphragm redemonstrated. Dictated by: Dictated on workstation # [id number]
[2017-08-02] MEDS: TERIPARATIDE 600 MCG/2.4 ML (FORTEO) SYR SQ SCH (10:00)
[2017-08-02] MEDS: methylPREDNISolone 40 MG/ML (Solu-MEDROL) VIAL IV SCH ×2 (10:29→21:49)
[2017-08-02] MEDS: BUMETANIDE 1 MG/4 ML (BUMEX) VIAL IV SCH (10:30)
[2017-08-02] MEDS: LORATADINE (CLARITIN) 10 MG TAB PO SCH (10:30)
[2017-08-02] MEDS: LOSARTAN 25 MG (COZAAR) TAB PO SCH (10:30)
[2017-08-02] MEDS: SIMETHICONE 80 MG (MYLICON) CHEW PO SCH ×4 (10:30→21:50)
[2017-08-02] MEDS: VORICONAZOLE 200 MG TAB (VFEND) NON-FORMULARY PO SCH ×2 (10:31→21:51)
[2017-08-02] MEDS: morphine INJ 4 MG/ML 1 ML (VIAL/SYRINGE) IVP PRN ×2 (11:58→21:49)
[2017-08-02] MEDS: HYDROcodone/APAP 10 MG/325 MG (LORTAB) TAB PO PRN ×3 (12:36→23:48)
--- NOTE | 2017-08-02 12:54 | Progress Note-Hospitalist ---
Progress Note HPI/CC on Admission Mr. 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 Initially sputum was clear but then it became colored. He increase his prednisone from 20 mg to 40 mg daily and presented to my office on the . There he did have significant wheezing but was maintaining saturations on room air 95-96 percent. He did not wish to be admitted to the hospital at that time so he was discharged on Levaquin. He has a past history of Pseudomonas that was pansensitive cultured from a venous insufficiency ulcer but also required hyperbaric oxygen therapy on his right lower extremity. It has been improving through wound care but at one point was quite large and he still has a significant area of skin breakdown although he does have pink granulation tissue no increase in pain and they have been pleased as of late with wound healing. He called my office the afternoon of the reporting the onset of severe left-sided chest pain worse with breathing worse with cough that actually followed a paroxysm of cough. It was too painful to take deep breaths and he was feeling more short of breath. Sputum culture obtained as an outpatient was growing Pseudomonas on admission but sensitivities were not yet available. He is at high risk for progression to overt respiratory failure and was admitted to the intensive care unit for close monitoring and further therapeutics. Past medical history is most significant for Churg-Nils tenting as pulmonary hemorrhage in 2001. Other than prednisone his only other medication is IVIG. He has a history of disseminated histoplasmosis for which she has been on voriconazole for the past several years continues to have elevated androgen levels and urine and blood. They have been controlled however with chronic suppressive voriconazole therapy. He follows at for his pulmonary and infectious disease issues. 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 He has been on Forteo as of late but I did have concerns over possible cough related rib fracture considering this history. Progress Notes/Assess & Plan Date Seen 08/02/17 Time Seen by Provider: 11:15 Diagonsis/Assessment & Plan Patient required transfer to ICU again last night due to respiratory insufficiency He obtained on BiPAP and felt pretty good with that on and now on Vapotherm Very complex case and this is day number 16 of hospitalization at bedside Patient denies any pain currently Maintain on Garcia catheter Reviewed meds and labs Vital signs stable, chronically ill, appears fatigued, Regular rate and rhythm, coarse breath sounds all henderson 3+ pitting edema lower extremities Laboratory Tests 08/01/17 16:10 08/02/17 04:[address] Cox: Assess & Plan/Chief Complaint 1. Pseudomonas bronchitis with acute exacerbation of underlying lung disease with secondary respiratory failure former resolved two days ago but recurred last night requiring move to ICU again 2. Churg-Kunal/EGPA acute flare doubtful continue his monthly IVIG Patient will be receiving IVIG per usual protocol 2 hour infusion daily 4 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 4. Left chest wall pain favor muscle spasm as it is a little more diffuse than one would expect for occult rib fracture as well as minimal improvement on morphine will add IV Norflex patient warned about sedation continue O2 sat monitoring continuous. 5. Slowly increasing BUN and creatinine compatible with relative intravascular volume depletion improving likely due to improved oxygenation status. Complex medical management. 6. Epigastric pain with decreasing white count doubt underlying infectious etiology. We'll continue proton pump inhibitor therapy. KUB did not suggest underlying obstruction ileus favored likely improving as the patient is beginning to pass gas. 7. History of osteoporosis on Forteo will resume injections. Plan: Maintain ICU status Appreciate Dr Fernandez's help Prognosis guarded JORDAN CALDERON DO Aug 02, 2017 12:54
[2017-08-02] MEDS: ENOXAPARIN 40 MG/0.4 ML (LOVENOX) SYR SC SCH (18:02)
[2017-08-02] MEDS: risperiDONE 0.25 MG (RisperDAL) TAB PO SCH (21:50)
[2017-08-02] MEDS: ACETAMINOPHEN 500 MG TAB (TYLENOL) PO SCH (21:50)
[2017-08-02] MEDS: DILTIAZEM 240 MG (CARDIZEM CD) CAP PO SCH (21:50)
[2017-08-03] VITALS (25 sets, daily range): BP systolic 121–180; BP diastolic 63–109
[2017-08-03] MEDS: RT-ALBUTEROL/IPRATROPIUM 3 ML (DUONEB) VIAL INH SCH ×6 (02:41→22:16)
[2017-08-03] MEDS: aCETylcysteine 20% (MUCOMYST) 30ML SOLN VIAL INH SCH (02:42)
[2017-08-03 04:21] LABS: BASOPHILS % (AUTO) 0 % (0-10); EOSINOPHILS % (AUTO) 0 % (0-10); HEMATOCRIT 27 % (40-54); HEMOGLOBIN 8.1 G/DL (13.3-17.7); LYMPHOCYTES # (AUTO) 0.1 X 10^3 (1.0-4.0); LYMPHOCYTES % (AUTO) 1 % (12-44); MEAN CORPUSCULAR HEMOGLOBIN 27 PG (25-34); MEAN CORPUSCULAR HGB CONC 30 G/DL (32-36); MEAN CORPUSCULAR VOLUME 92 FL (80-99); MEAN PLATELET VOLUME 10.7 FL (7.4-10.4); MONOCYTES # (AUTO) 0.1 X 10^3 (0.0-1.0); MONOCYTES % (AUTO) 1 % (0-12); NEUTROPHILS # (AUTO) 12.5 X 10^3 (1.8-7.8); NEUTROPHILS % (AUTO) 98 % (42-75); PLATELET COUNT 104 10^3/uL (130-400); RED BLOOD COUNT 2.96 10^6/uL (4.35-5.85); RED CELL DISTRIBUTION WIDTH 16.3 % (10.0-14.5); WHITE BLOOD COUNT 12.7 10^3/uL (4.3-11.0)
[2017-08-03 05:02] LABS: BUN/CREATININE RATIO 47; CALCIUM 9.4 MG/DL (8.5-10.1); CARBON DIOXIDE 34 MMOL/L (21-32); CHLORIDE 95 MMOL/L (98-107); CREATININE SERUM 1.17 MG/DL (0.60-1.30); GFR ESTIMATED > 60; GLUCOSE 354 MG/DL (70-105); MAGNESIUM 1.9 MG/DL (1.8-2.4); POTASSIUM 5.2 MMOL/L (3.6-5.0); SODIUM 139 MMOL/L (135-145)
--- NOTE | 2017-08-03 05:33 | Pulmonary Progress Note ---
Subjective Time Seen by Provider: 05:49 Subjective/Events-last exam Pt is doing better today however still requiring high flow oxygen and is very weak Exam Exam Vital Signs Date Time Temp Pulse Resp B/P (MAP) Pulse Ox O2 Delivery O2 Flow Rate FiO2 08/03/17 03:00 98 21 138/80 (99) 96 Vapotherm 60.00 20.00 08/03/17 02:47 Vapotherm 60.00 20.00 08/03/17 02:42 97 Vapotherm 20.00 70 08/03/17 01:00 107 08/03/17 01:00 107 23 145/80 (101) 98 Vapotherm 70.00 20.00 08/03/17 00:00 98.8 115 27 150/84 (106) 100 Vapotherm 70.00 20.00 08/03/17 00:00 Vapotherm 20.00 70 08/02/17 23:00 115 32 153/72 (99) 93 Vapotherm 70.00 20.00 08/02/17 22:02 95 Vapotherm 20.00 70 08/02/17 22:00 115 25 172/87 (115) 96 Vapotherm 70.00 20.00 08/02/17 21:00 112 31 157/78 (104) 96 Vapotherm 70.00 20.00 08/02/17 20:33 96 Vapotherm 20.00 70 08/02/17 20:00 NIV Bilevel 55 08/02/17 20:00 113 30 156/79 (104) 95 Vapotherm 70.00 20.00 08/02/17 19:30 97.2 Vapotherm 70.00 20.00 08/02/17 19:00 113 08/02/17 19:00 113 35 194/94 (127) 95 Vapotherm 70.00 20.00 08/02/17 18:48 95 Vapotherm 20.00 70 08/02/17 18:00 133 17 163/99 (120) 98 NIV Bilevel 55.00 08/02/17 17:00 100 21 145/83 (103) 96 NIV Bilevel 55.00 08/02/17 16:00 98.3 NIV Bilevel 55.00 08/02/17 16:00 NIV Bilevel 55 08/02/17 16:00 103 16 105/47 (66) 95 NIV Bilevel 55.00 2/3/18 15:02 102 31 97 65.00 08/02/17 15:00 100 21 142/85 (104) 98 NIV Bilevel 55.00 08/02/17 14:00 104 31 122/55 (77) 99 NIV Bilevel 65.00 08/02/17 13:00 105 08/02/17 13:00 105 30 109/54 (72) 98 Vapotherm 70.00 20.00 08/02/17 12:59 104 27 98 65.00 08/02/17 12:00 106 30 151/78 (102) 91 Vapotherm 70.00 20.00 08/02/17 12:00 NIV Bilevel 65 08/02/17 12:00 97.8 Vapotherm 70.00 20.00 08/02/17 11:14 Vapotherm 70.00 20.00 08/02/17 11:00 93 32 163/98 (119) 94 NIV Bilevel 65.00 08/02/17 10:49 94 Vapotherm 20.00 70 08/02/17 10:00 89 18 142/72 (95) 100 NIV Bilevel 65.00 08/02/17 09:43 NIV Bilevel 65.00 08/02/17 09:00 103 27 142/70 (94) 97 NIV Bilevel 55.00 08/02/17 08:00 96.9 NIV Bilevel 55.00 08/02/17 08:00 89 28 136/76 (96) 96 NIV Bilevel 55.00 08/02/17 08:00 NIV Bilevel 55 08/02/17 07:52 88 25 96 65.00 08/02/17 07:00 86 08/02/17 07:00 86 23 126/67 (86) 91 NIV Bilevel 65.00 08/02/17 06:49 NIV Bilevel 65.00 08/02/17 06:00 93 23 151/78 (102) 90 Vapotherm 65.00 15.00 I & O 08/03/17 07:00 Intake Total 810 ml Output Total 3350 ml Balance -2540 ml General Appearance: Anxious, Chronically ill (cushingoid as well), Moderate Distress HEENT: PERRL/EOMI, Normal ENT Inspection Neck: Full Range of Motion, Normal Inspection, Non Tender, Supple, Carotid Bruit Respiratory: No Accessory Muscle Use, Decreased Breath Sounds, Other (few scattered rhonchi wheezing on forced expiration only not noted on regular respiration. Accessory muscle use with minimal exertion but not at rest.) Cardiovascular: Regular Rate, Rhythm, No Edema, No Gallop, No JVD, No Murmur, Normal Peripheral Pulses Capillary Refill: Less Than 3 Seconds Gastrointestinal: normal bowel sounds, soft, no organomegaly, no pulsatile mass Extremity: Other (plus upper and lower extremity edema unchanged that is 2+) Neurologic/Psychiatric: Alert Skin: Normal Color, Warm/Dry, Pallor Lymphatic: No Adenopathy Results Lab Laboratory Tests 08/01/17 05:30 08/01/17 16:10 08/02/17 04:25 08/03/17 04:00 Assessment/Plan Assessment/Plan Acute respiratory failure -SVNs --Change SVNs to Q2 - Solumedrol 40 IV Q 12 decrease to daily -Bumex pt feels much better after 4mg of Bumex yesterday -Pt is requiring BiPAP currently will see how he does off BiPAP today Acute renal failure -improved -Monitor Hyperkalemia -repeat -HOLD PO K+ Anemia -cont to montior Anxiety -Risperdal , morphine, Ativan Back spasms -hx Churg Kunal -Pt follows with [facility]/infectious disease Chronic elevation of right diaphragm with atelectasis pneumonia with Pseudomonas -Cefepime - D/C Immunosuppression hx Debility -PT/OT -hx of stable BETHANY nodule per CT scan Advance activity. UP to chair BID. 233 Clinical Quality Measures DVT/VTE Risk/Contraindication: Risk Factor Score Per Nursin RFS Level Per Nursing on Admit: 3=High MEDINA VILLEGAS DO Aug 03, 2017 05:33
[2017-08-03] MEDS: POTASSIUM CL 10MEQ/50ML IVPB 50 ML IV SCH (05:36)
[2017-08-03] MEDS: KCL 20 MEQ TAB (K-DUR) PO SCH ×2 (05:37)
[2017-08-03] MEDS: MAGNESIUM 1 GM/100 ML IVPB 100 ML IV SCH (05:37)
[2017-08-03] MEDS: inSUlin (REGULAR) HUMAN 1 UNIT/0.01 ML (CHARGE PER UNIT) SC SCH ×4 (06:22→21:38)
[2017-08-03] MEDS: RT-BUDESONIDE NEBS 0.5 MG/2ML (PULMICORT) AMP INH SCH ×2 (07:29→18:35)
[2017-08-03] MEDS ORDERED: inSUlin DETERMIR 1 UNIT/0.01 ML (LEVEMIR) CHARGE PER UNIT SQ SCH (09:00)
[2017-08-03] MEDS ORDERED: BUMETANIDE 1 MG/4 ML (BUMEX) VIAL IV SCH (09:00)
[2017-08-03] MEDS: POLYETHYLENE GLYCOL 17 GM (MIRALAX) PACK PO SCH ×2 (09:00→21:00)
[2017-08-03] MEDS: SIMETHICONE 80 MG (MYLICON) CHEW PO SCH ×4 (09:11→21:37)
[2017-08-03] MEDS: BUMETANIDE 1 MG/4 ML (BUMEX) VIAL IV SCH (09:12)
[2017-08-03] MEDS: methylPREDNISolone 40 MG/ML (Solu-MEDROL) VIAL IV SCH (09:12)
[2017-08-03] MEDS: LOSARTAN 25 MG (COZAAR) TAB PO SCH (09:12)
[2017-08-03] MEDS: PANTOPRAZOLE 40 MG (PROTONIX) TAB PO SCH (09:13)
[2017-08-03] MEDS: VORICONAZOLE 200 MG TAB (VFEND) NON-FORMULARY PO SCH ×2 (09:13→20:02)
[2017-08-03] MEDS: TERIPARATIDE 600 MCG/2.4 ML (FORTEO) SYR SQ SCH (09:14)
--- NOTE | 2017-08-03 10:21 | Diagnostic Imaging Report ---
INDICATION: Cough, pneumonia. COMPARISON: 08/02/2017. FINDINGS: Stable left PICC. No change in left basilar heterogeneous consolidations. Asymmetric elevation right hemidiaphragm is unchanged. No definitive pleural effusion or pneumothorax. Stable cardiomediastinal silhouette. IMPRESSION: Stable exam without adverse development. Dictated by: Dictated on workstation # [id number]
[2017-08-03 12:37] LABS: CALCIUM 9.3 MG/DL (8.5-10.1); CREATININE SERUM 1.38 MG/DL (0.60-1.30); POTASSIUM 4.5 MMOL/L (3.6-5.0)
--- NOTE | 2017-08-03 13:56 | Progress Note-Hospitalist ---
Progress Note HPI/CC on Admission Mr. 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 Initially sputum was clear but then it became colored. He increase his prednisone from 20 mg to 40 mg daily and presented to my office on the . There he did have significant wheezing but was maintaining saturations on room air 95-96 percent. He did not wish to be admitted to the hospital at that time so he was discharged on Levaquin. He has a past history of Pseudomonas that was pansensitive cultured from a venous insufficiency ulcer but also required hyperbaric oxygen therapy on his right lower extremity. It has been improving through wound care but at one point was quite large and he still has a significant area of skin breakdown although he does have pink granulation tissue no increase in pain and they have been pleased as of late with wound healing. He called my office the afternoon of the reporting the onset of severe left-sided chest pain worse with breathing worse with cough that actually followed a paroxysm of cough. It was too painful to take deep breaths and he was feeling more short of breath. Sputum culture obtained as an outpatient was growing Pseudomonas on admission but sensitivities were not yet available. He is at high risk for progression to overt respiratory failure and was admitted to the intensive care unit for close monitoring and further therapeutics. Past medical history is most significant for Churg-Nils tenting as pulmonary hemorrhage in 2001. Other than prednisone his only other medication is IVIG. He has a history of disseminated histoplasmosis for which she has been on voriconazole for the past several years continues to have elevated androgen levels and urine and blood. They have been controlled however with chronic suppressive voriconazole therapy. He follows at for his pulmonary and infectious disease issues. 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 He has been on Forteo as of late but I did have concerns over possible cough related rib fracture considering this history. Progress Notes/Assess & Plan Date Seen 08/03/17 Time Seen by Provider: 12:15 Diagonsis/Assessment & Plan Patient doing much better today Diuresis doing well. On Vapotherm since yesterday Bowels are moving and his eating and drinking Vital signs stable, chronically ill, appears fatigued but much improved from yesterday Regular rate and rhythm, coarse breath sounds all henderson 1+ pitting edema lower extremities much improved Laboratory Tests 08/03/17 04:00 08/03/17 12:[address] Cox: Assess & Plan/Chief Complaint 1. Pseudomonas bronchitis with acute exacerbation of underlying lung disease with secondary respiratory failure former resolved two days ago but recurred last night requiring move to ICU again 2. Churg-Kunal/EGPA acute flare doubtful continue his monthly IVIG Patient will be receiving IVIG per usual protocol 2 hour infusion daily 4 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 4. Left chest wall pain favor muscle spasm as it is a little more diffuse than one would expect for occult rib fracture as well as minimal improvement on morphine will add IV Norflex patient warned about sedation continue O2 sat monitoring continuous. 5. Slowly increasing BUN and creatinine compatible with relative intravascular volume depletion improving likely due to improved oxygenation status. Complex medical management. 6. Epigastric pain with decreasing white count doubt underlying infectious etiology. We'll continue proton pump inhibitor therapy. KUB did not suggest underlying obstruction ileus favored likely improving as the patient is beginning to pass gas. 7. History of osteoporosis on Forteo will resume injections. Plan: Maintain ICU status Appreciate Dr Fernandez's help Prognosis guarded Monitor creat and hgb JORDAN CALDERON DO Aug 03, 2017 13:56
[2017-08-03] MEDS: HYDROcodone/APAP 10 MG/325 MG (LORTAB) TAB PO PRN ×2 (14:49→20:03)
[2017-08-03] MEDS: morphine INJ 4 MG/ML 1 ML (VIAL/SYRINGE) IVP PRN (16:34)
[2017-08-03] MEDS: hydrALAZINE (APESOLINE) 20 MG/ML VIAL IV PRN (18:48)
[2017-08-03] MEDS: ENOXAPARIN 40 MG/0.4 ML (LOVENOX) SYR SC SCH (18:48)
[2017-08-03] MEDS ORDERED: ZOLPIDEM 5 MG (AMBIEN) TAB PO ONE (21:30)
[2017-08-03] MEDS: risperiDONE 0.25 MG (RisperDAL) TAB PO SCH (21:36)
[2017-08-03] MEDS: DILTIAZEM 240 MG (CARDIZEM CD) CAP PO SCH (21:36)
[2017-08-04] VITALS (31 sets, daily range): BP systolic 113–174; BP diastolic 54–122
[2017-08-04] MEDS: RT-ALBUTEROL/IPRATROPIUM 3 ML (DUONEB) VIAL INH SCH ×6 (02:59→22:43)
[2017-08-04 04:28] LABS: ABG BASE EXCESS 14.5 MMOL/L (-2.5-2.5); ABG OXYGEN SATURATION 84 % (94-100); ABG PCO2 59 MMHG (35-45); ABG PH 7.44 (7.37-7.43); ABG PO2 49 MMHG (79-93); ABG TCO2 41.6 MMOL/L (21.0-31.0)
[2017-08-04 04:31] LABS: ALLENS TEST YES-POS; INSPIRED O2 45% BIPAP; PATIENT TEMP 97.4; VENTILATOR NO
[2017-08-04 05:18] LABS: BASOPHILS % (AUTO) 0 % (0-10); EOSINOPHILS % (AUTO) 0 % (0-10); HEMATOCRIT 29 % (40-54); HEMOGLOBIN 8.5 G/DL (13.3-17.7); LYMPHOCYTES # (AUTO) 0.4 X 10^3 (1.0-4.0); LYMPHOCYTES % (AUTO) 2 % (12-44); MEAN CORPUSCULAR HEMOGLOBIN 27 PG (25-34); MEAN CORPUSCULAR HGB CONC 30 G/DL (32-36); MEAN CORPUSCULAR VOLUME 91 FL (80-99); MEAN PLATELET VOLUME 10.5 FL (7.4-10.4); MONOCYTES # (AUTO) 0.5 X 10^3 (0.0-1.0); MONOCYTES % (AUTO) 3 % (0-12); NEUTROPHILS # (AUTO) 16.4 X 10^3 (1.8-7.8); NEUTROPHILS % (AUTO) 95 % (42-75); PLATELET COUNT 145 10^3/uL (130-400); RED BLOOD COUNT 3.12 10^6/uL (4.35-5.85); RED CELL DISTRIBUTION WIDTH 16.5 % (10.0-14.5); WHITE BLOOD COUNT 17.3 10^3/uL (4.3-11.0)
[2017-08-04 05:39] LABS: BUN/CREATININE RATIO 53; CALCIUM 9.9 MG/DL (8.5-10.1); CARBON DIOXIDE 33 MMOL/L (21-32); CHLORIDE 93 MMOL/L (98-107); CREATININE SERUM 1.11 MG/DL (0.60-1.30); GFR ESTIMATED > 60; GLUCOSE 148 MG/DL (70-105); MAGNESIUM 1.9 MG/DL (1.8-2.4); PHOSPHORUS 3.5 MG/DL (2.3-4.7); POTASSIUM 4.3 MMOL/L (3.6-5.0); SODIUM 142 MMOL/L (135-145)
[2017-08-04 05:41] LABS: BAND NEUTROPHILS 0 %; BASOPHILS % (MANUAL) 0 %; EOSINOPHILS % (MANUAL) 0 %; LYMPHOCYTES % (MANUAL) 2 %; MONOCYTES % (MANUAL) 1 %; NEUTROPHILS % (MANUAL) 97 %
[2017-08-04 05:42] LABS: ANISOCYTOSIS SLIGHT; HYPOCHROMASIA SLIGHT; TEAR DROP CELLS SLIGHT
[2017-08-04] MEDS: inSUlin (REGULAR) HUMAN 1 UNIT/0.01 ML (CHARGE PER UNIT) SC SCH ×4 (06:00→20:51)
[2017-08-04] MEDS: POTASSIUM CL 10MEQ/50ML IVPB 50 ML IV SCH (06:00)
[2017-08-04] MEDS: KCL 20 MEQ TAB (K-DUR) PO SCH ×2 (06:00)
[2017-08-04] MEDS: MAGNESIUM 1 GM/100 ML IVPB 100 ML IV SCH (06:00)
--- NOTE | 2017-08-04 07:07 | Pulmonary Progress Note ---
Subjective Time Seen by Provider: 07:14 Subjective/Events-last exam Very weak and required BiPAP through the night. Exam Exam Vital Signs Date Time Temp Pulse Resp B/P (MAP) Pulse Ox O2 Delivery O2 Flow Rate FiO2 08/04/17 06:00 83 17 127/65 (85) 99 NIV Bilevel 45.00 08/04/17 05:00 89 24 135/64 (87) 96 NIV Bilevel 45.00 08/04/17 04:00 97.4 74 16 122/61 (81) 96 NIV Bilevel 45.00 08/04/17 04:00 NIV Bilevel 45 08/04/17 03:00 89 16 136/63 (87) 98 NIV Bilevel 45.00 08/04/17 02:59 86 16 98 45.00 08/04/17 02:00 84 22 124/66 (85) 96 NIV Bilevel 45.00 08/04/17 01:00 86 08/04/17 01:00 86 15 116/54 (74) 99 NIV Bilevel 45.00 08/04/17 00:26 91 21 97 45.00 08/04/17 00:00 NIV Bilevel 45 08/04/17 00:00 98.4 89 15 136/64 (88) 97 NIV Bilevel 45.00 08/03/17 23:00 90 17 121/63 (82) 97 NIV Bilevel 45.00 08/03/17 22:16 102 25 97 45.00 08/03/17 22:00 99 23 138/66 (90) 96 NIV Bilevel 45.00 08/03/17 21:00 95 25 160/109 (126) 96 NIV Bilevel 45.00 08/03/17 20:00 98.3 98 25 147/75 (99) 97 NIV Bilevel 45.00 08/03/17 20:00 Vapotherm 20.00 55 08/03/17 19:05 100 21 100 NIV Bilevel 45.00 08/03/17 19:00 102 25 97 45.00 08/03/17 19:00 103 24 154/84 (107) 98 Vapotherm 55.00 20.00 08/03/17 19:00 103 08/03/17 18:35 93 Vapotherm 20.00 55 08/03/17 18:35 93 Vapotherm 20.00 55 08/03/17 18:00 96 16 162/94 (116) 99 Vapotherm 55.00 20.00 08/03/17 17:00 95 22 132/85 (101) 97 NIV Bilevel 55.00 08/03/17 16:00 98 22 125/76 (92) 92 NIV Bilevel 55.00 08/03/17 16:00 Vapotherm 20.00 55 08/03/17 16:00 97.9 NIV Bilevel 55.00 08/03/17 15:00 102 20 161/86 (111) 94 Vapotherm 55.00 20.00 08/03/17 14:47 98 98 55 08/03/17 14:44 95 Vapotherm 20.00 55 08/03/17 14:00 105 17 169/80 (109) 95 Vapotherm 55.00 20.00 08/03/17 13:00 96 08/03/17 13:00 96 22 158/73 (101) 94 Vapotherm 55.00 20.00 08/03/17 12:00 100 22 169/80 (109) 94 Vapotherm 55.00 20.00 08/03/17 12:00 Vapotherm 20.00 55 08/03/17 12:00 98.6 Vapotherm 55.00 20.00 08/03/17 11:00 107 14 169/80 (109) 95 Vapotherm 55.00 20.00 08/03/17 10:49 95 Vapotherm 20.00 55 08/03/17 10:00 106 31 180/89 (119) 94 Vapotherm 55.00 20.00 08/03/17 09:00 98 27 173/86 (115) 96 Vapotherm 55.00 20.00 08/03/17 08:00 Vapotherm 20.00 55 08/03/17 08:00 98.8 Vapotherm 55.00 20.00 08/03/17 08:00 100 25 164/74 (104) 95 Vapotherm 55.00 20.00 08/03/17 07:30 92 Vapotherm 20.00 55 08/03/17 07:29 92 Vapotherm 20.00 55 I & O 08/04/17 07:00 Intake Total 1450 ml Output Total 2575 ml Balance -1125 ml General Appearance: Anxious, Chronically ill (cushingoid as well), Moderate Distress HEENT: PERRL/EOMI, Normal ENT Inspection Neck: Full Range of Motion, Normal Inspection, Non Tender, Supple, Carotid Bruit Respiratory: No Accessory Muscle Use, Decreased Breath Sounds, Other (few scattered rhonchi wheezing on forced expiration only not noted on regular respiration. Accessory muscle use with minimal exertion but not at rest.) Cardiovascular: Regular Rate, Rhythm, No Edema, No Gallop, No JVD, No Murmur, Normal Peripheral Pulses Capillary Refill: Less Than 3 Seconds Gastrointestinal: normal bowel sounds, soft, no organomegaly, no pulsatile mass Extremity: Other (plus upper and lower extremity edema unchanged that is 2+) Neurologic/Psychiatric: Alert Skin: Normal Color, Warm/Dry, Pallor Lymphatic: No Adenopathy Results Lab Laboratory Tests 08/03/17 04:00 08/03/17 12:20 08/04/17 04:35 Assessment/Plan Assessment/Plan Acute respiratory failure -SVNs --Change SVNs to Q2 - Solumedrol 40 IV Q 12 -Pt is requiring BiPAP currently will see how he does off BiPAP today Acute renal failure -improved -Monitor Anemia -cont to montior Anxiety -Risperdal , morphine, Ativan Back spasms -hx Churg Kunal -Pt follows with [facility] pulm/infectious disease Chronic elevation of right diaphragm with atelectasis pneumonia with Pseudomonas -Cefepime - D/C Immunosuppression hx Debility -PT/OT -hx of stable BETHANY nodule per CT scan Advance activity. UP to chair BID. Will do ICU stepdown however will keep in ICU. 233 Clinical Quality Measures DVT/VTE Risk/Contraindication: Risk Factor Score Per Nursin RFS Level Per Nursing on Admit: 3=High MEDINA VILLEGAS DO Aug 04, 2017 07:07
[2017-08-04] MEDS: RT-BUDESONIDE NEBS 0.5 MG/2ML (PULMICORT) AMP INH SCH ×2 (07:14→18:31)
[2017-08-04] MEDS: PANTOPRAZOLE 40 MG (PROTONIX) TAB PO SCH (07:42)
--- NOTE | 2017-08-04 08:20 | Diagnostic Imaging Report ---
PATIENT HISTORY: Pneumonia TECHNIQUE: Single frontal view of the chest COMPARISON: 08/03/2017 FINDINGS: Dense consolidation is seen in the left lung base, consistent with history of pneumonia. Lung volumes are mildly low with elevation of the right hemidiaphragm. No new consolidation is seen. There is mild cardiomegaly, likely accentuated by the low lung volumes. The tip of the left PICC line projects over the upper SVC directed to the right. No pneumothorax is seen. There are small bilateral pleural effusions. IMPRESSION: 1. Dense consolidation consistent with pneumonia in the left lung base, stable since the prior study. 2. Mildly low lung volumes. Small bilateral pleural effusions. Dictated by: Dictated on workstation # [id number]
--- NOTE | 2017-08-04 08:36 | Progress Note-Hospitalist ---
Subjective HPI/CC On Admission Date Seen by Provider: Aug 04, 2017 Time Seen by Provider: 08:25 Mr. 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 Initially sputum was clear but then it became colored. He increase his prednisone from 20 mg to 40 mg daily and presented to my office on the . There he did have significant wheezing but was maintaining saturations on room air 95-96 percent. He did not wish to be admitted to the hospital at that time so he was discharged on Levaquin. He has a past history of Pseudomonas that was pansensitive cultured from a venous insufficiency ulcer but also required hyperbaric oxygen therapy on his right lower extremity. It has been improving through wound care but at one point was quite large and he still has a significant area of skin breakdown although he does have pink granulation tissue no increase in pain and they have been pleased as of late with wound healing. He called my office the afternoon of the reporting the onset of severe left-sided chest pain worse with breathing worse with cough that actually followed a paroxysm of cough. It was too painful to take deep breaths and he was feeling more short of breath. Sputum culture obtained as an outpatient was growing Pseudomonas on admission but sensitivities were not yet available. He is at high risk for progression to overt respiratory failure and was admitted to the intensive care unit for close monitoring and further therapeutics. Past medical history is most significant for Churg-Nils tenting as pulmonary hemorrhage in 2001. Other than prednisone his only other medication is IVIG. He has a history of disseminated histoplasmosis for which she has been on voriconazole for the past several years continues to have elevated androgen levels and urine and blood. They have been controlled however with chronic suppressive voriconazole therapy. He follows at for his pulmonary and infectious disease issues. 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 He has been on Forteo as of late but I did have concerns over possible cough related rib fracture considering this history. Subjective/Events-last exam Pt reports feeling groggy after receiving Ambien last night. I recommended removal of gibson cath and pt declined. Objective Exam Vital Signs Vital Sign - Last 12Hours 07/29/17 00:00 Temp 98.6 Pulse 87 Resp 27 B/P (MAP) 136/44 (74) Pulse Ox 100 O2 Delivery NIV Bilevel O2 Flow Rate 50.00 FiO2 40 Capillary Refill : Less Than 3 Seconds General Appearance: No Apparent Distress, WD/WN Respiratory: No Accessory Muscle Use, No Respiratory Distress, Wheezing Cardiovascular: Regular Rate, Rhythm, No Murmur Gastrointestinal: Normal Bowel Sounds, Non Tender, Soft Neurologic/Psychiatric: Alert, Oriented x3, No Motor/Sensory Deficits Results/Procedures Lab Laboratory Tests 08/03/17 12:20 08/04/17 04:35 Assessment/Plan Assessment and Plan Assess & Plan/Chief Complaint Pneumonia Diagnosis/Problems Diagnosis/Problems (1) CAP (community acquired pneumonia) Assessment & Plan: psuedomonas on culture from Dr Cox's office Cmpleted Cefepime MAT Protocol Pulm consulted, appreciate recs MAT protocol Qualifiers: Qualified Codes: J18.9 - Pneumonia, unspecified organism (2) 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 Assessment & Plan: Continue on Solumedrol Receives IVIG Follows with [facility] pulm and infectious disease On voriconazole (3) Diabetes mellitus Status: Chronic Assessment & Plan: Steroid induced on Sliding Scale Had blood sugar of 655 last night Improved this AM, trend Qualifiers: Qualified Codes: E09.8 - Drug or chemical induced diabetes mellitus with unspecified complications (4) Essential (primary) hypertension Assessment & Plan: Well controlled (5) Chest wall pain Assessment & Plan: Continue home hydrocodone IV Morphine for breakthrough pain Also on Norflex (6) Debility Assessment & Plan: PT/OT consulted ROBERTO DELATORRE MD Aug 04, 2017 08:36
[2017-08-04] MEDS: methylPREDNISolone 40 MG/ML (Solu-MEDROL) VIAL IV SCH (08:54)
[2017-08-04] MEDS: SIMETHICONE 80 MG (MYLICON) CHEW PO SCH ×4 (08:54→20:49)
[2017-08-04] MEDS: BUMETANIDE 1 MG/4 ML (BUMEX) VIAL IV SCH (08:54)
[2017-08-04] MEDS: LOSARTAN 25 MG (COZAAR) TAB PO SCH (08:54)
[2017-08-04] MEDS: VORICONAZOLE 200 MG TAB (VFEND) NON-FORMULARY PO SCH ×2 (08:55→20:50)
[2017-08-04] MEDS: POLYETHYLENE GLYCOL 17 GM (MIRALAX) PACK PO SCH ×2 (08:55→20:52)
[2017-08-04] MEDS: inSUlin DETERMIR 1 UNIT/0.01 ML (LEVEMIR) CHARGE PER UNIT SQ SCH ×2 (08:55→20:51)
[2017-08-04] MEDS ORDERED: aCETylcysteine 20% (MUCOMYST) 30ML SOLN VIAL ONE (09:38)
[2017-08-04] MEDS: TERIPARATIDE 600 MCG/2.4 ML (FORTEO) SYR SQ SCH (09:55)
--- NOTE | 2017-08-04 11:42 | Physical Therapy Evaluation ---
PT Evaluation-General Medical Diagnosis Admission Date Jul 17, 2017 at 16:50 Medical Diagnosis: pneumonia Onset Date: Jul 17, 2017 Therapy Diagnosis Therapy Diagnosis: generalized weakness/debility Height/Weight Height (Feet): 5 Height (Inches): 10.50 Weight (Pounds): 230 Weight (Ounces): 6.4 Precautions Precautions/Isolations: Fall Prevention, Standard Precautions Weight Bear Status Right Lower Extremity: Right Full Weight Bearing Left Lower Extremity: Left Full Weight Bearing Referral Physician: Rebecca Reason for Referral: Evaluation/Treatment Medical History Pertinent Medical History: GERD, Neuropathy Additional Medical History Patient has been in ICU, to floor and back to ICU due to respiratory distress requiring MV or Bipap Current History patient is currently in Bipap, however, alert and oriented Reviewed History: Yes Social History Home: Multilevel Current Living Status: Spouse Entry Into Home: Stairs With Railing PT Steps Into Home: 2 Prior/Core FIM Prior Level of Function Functional [place] Measure 0=Not Assessed/NA 4=Minimal Assistance 1=Total Assistance 5=Supervision or Setup 2=Maximal Assistance 6=Modified [place] 3=Moderate Assistance 7=Complete [place] Bed Mobility: 7 Transfers (B,C,W/C) (FIM): 7 Gait: 7 Locomotion: 7 PT Evaluation-Current Subjective Patient is on bipap and agrees to PT. Pain Numeric Pain Scale: 0-No Pain Location: No Pain Reported Objective Patient Orientation: Normal For Age Problem Solving: Fair Attachments: Oxygen (Bipap), Garcia Catheter, IV ROM/Strength ROM Lower Extremities bilateral LE WNL Strength Lower Extremities bilateral LE 3-/5 grossly all planes Integumentary/Posture Integumentary multiple skin tears/wounds/3+ pitting edema bilaterally Bowel Incontinence: No Bladder Incontinence: Garcia Cath Posture slightly kyphotic Neuromuscular (Tone, Coordination, Reflexes) delayed coordination and reflexes Sensory Vision: Functional Hearing: Impaired Hand Dominance: Right Sensation Right Lower Extremit: Intact Sensation Left Lower Extremity: Intact Transfers Functional [place] Measure 0=Not Assessed/NA 4=Minimal Assistance 1=Total Assistance 5=Supervision or Setup 2=Maximal Assistance 6=Modified [place] 3=Moderate Assistance 7=Complete [place] Transfers (B, C, W/C) (FIM): 3 Scootin Rollin Supine to/from Sit: 3 Patient maintained seated EOB x 24 min performing exercises Balance Sitting Static: Normal Sitting Dynamic: Normal Treatment bilateral LE exercises 10 reps x 5 sets AP, LAQ, hip flexion, trunk flexion/ extension and rotation Assessment/Needs 62 y.o. male, will benefit from skilled PT to address functional strength and mobility to improve current LOF. Patient will require extended therapies to achieve full recovery from disease process. Rehab Potential: Guarded PT Short Term Goals Short Term Goals Transfers (B,C,W/C) (FIM): 3 PT Care Home Goals Care Home Goals PT Care Home Goals Time Frame: Sep 12, 2017 Transfers (B,C,W/C) (FIM): 6 Gait (FIM): 6 Gait distance (FIM): 3=150 ft Distance: 200' Gait Level of Assist: 6 Gait Assistive Device: FWW Stairs (FIM): 6 # of Steps: 12 Stairs Level Of Assist: 6 PT Plan Problem List Problem List: Activity Tolerance, Functional Strength, Balance, Gait, Transfer , Bed Mobility Treatment/Plan Treatment Plan: Continue Plan of Care Treatment Plan: Bed Mobility, Education, Functional Activity [place], Functional Strength, Gait, Safety, Therapeutic Exercise, Transfers Treatment Duration: Sep 12, 2017 Frequency: 11 times per week Estimated Hrs Per Day: 1 hour per day (or PRN) Patient and/or Family Agrees t: Yes Safety Risks/Education Patient Education: Correct Positioning Discharge Recommendations Therapy D/C Recommendations: Acute Rehab (when medically stable) Time/GCodes Time In: 1000 Time Out: 1025 Total Billed Treatment Time: 25 Total Billed Treatment 1 visit EVHighC 25 min LYLA BLOUNT PT Aug 04, 2017 11:41
[2017-08-04] MEDS: aCETylcysteine 20% (MUCOMYST) 30ML SOLN VIAL INH SCH ×3 (14:29→22:43)
--- NOTE | 2017-08-04 14:32 | Physical Therapy Daily Note ---
PT Daily Note-Current Subjective Patient working with OT. Agrees to PT. Pain Numeric Pain Scale: 0-No Pain Location: No Pain Reported Mental Status Patient Orientation: Normal For Age Attachments: Oxygen (bipap), Garcia Catheter, IV Transfers Functional [place] Measure 0=Not Assessed/NA 4=Minimal Assistance 1=Total Assistance 5=Supervision or Setup 2=Maximal Assistance 6=Modified [place] 3=Moderate Assistance 7=Complete IndependenceIRFPAI Quality Coding Scale 6 Independent with activity with or without an assistive device 5 Patient requires set up or clean up by helper. Patient completes activity by themselves 4 Supervision or touching assist (CGA). [place] provide cues , steadying assist 3 The helper provides less than half the effort to complete the activity 2 The helper provides more than half the effort to complete the activity 1 Dependent. The helper does all the effort to complete an activity 7 Patient refused to complete or attempt activity 9 The patient did not perform the activity before the current illness or injury 88 Not attempted due to Medical conditions or safety concerns Transfers (B, C, W/C) (FIM): 1 Scootin Rollin Supine to/from Sit: 2 Patient sat EOB and performed bilateral LE exercises x 13 min Weight Bearing Right Lower Extremity: Right Full Weight Bearing Left Lower Extremity: Left Full Weight Bearing Exercises Seated Therapy Exercises: Ankle pumps, Long arc quads, Hip flexion Seated Reps: 10 Assessment Patient is extremely fatigued and requested to cease treatment. PT to increase activity as tolerated by patient. Patient repositioned to sidelying right with pillow placement. PT Short Term Goals Short Term Goals Transfers (B,C,W/C) (FIM): 3 PT Residential Goals Business Services Representative Goals PT Business Services Representative Goals Time Frame: Sep 12, 2017 Transfers (B,C,W/C) (FIM): 6 Gait (FIM): 6 Gait distance (FIM): 3=150 ft Distance: 200' Gait Level of Assist: 6 Gait Assistive Device: FWW Stairs (FIM): 6 # of Steps: 12 Stairs Level Of Assist: 6 PT Plan Treatment/Plan Treatment Plan: Continue Plan of Care Treatment Plan: Bed Mobility, Education, Functional Activity [place], Functional Strength, Gait, Safety, Therapeutic Exercise, Transfers Treatment Duration: Sep 12, 2017 Frequency: 11 times per week Estimated Hrs Per Day: 1 hour per day (or PRN) Patient and/or Family Agrees t: Yes Time/GCodes Time In: 1407 Time Out: 1420 Total Billed Treatment Time: 13 Total Billed Treatment 1 visit FA 13 min LYLA BLOUNT PT Aug 04, 2017 14:32
[2017-08-04] MEDS: HYDROcodone/APAP 10 MG/325 MG (LORTAB) TAB PO PRN ×2 (16:17→20:50)
--- NOTE | 2017-08-04 17:12 | Occupational Therapy Eval ---
OT Evaluation-General/PLF Medical Diagnosis Admission Date Jul 17, 2017 at 16:50 Medical Diagnosis: pneumonia Onset Date: Jul 17, 2017 Therapy Diagnosis Therapy Diagnosis: Weakness Height/Weight Height (Feet): 5 Height (Inches): 10.50 Weight (Pounds): 230 Weight (Ounces): 6.4 Precautions Precautions/Isolations: Fall Prevention, Standard Precautions Safety Interventions: None Weight Bear Status Weight Bearing Restriction: Weight Bearing/Tolerated Referral Physician: Rebecca Referral Reason: Activity Tolerance, Self Care, Evaluation/Treatment, Strengthening/ROM Medical History Pertinent Medical History: GERD, Neuropathy Additional Medical History Back surgery, GI bleed, DJD, ulcers right LE, Churge Kunal Syndrome Current History Pt. has had recent history in hospital. Pt. has been on vent, bipap. Reviewed History: Yes Social History Home: Multilevel Current Living Status: Spouse Entry Into Home: Stairs With Railing Steps Into Home: 2 ADL-Prior Level of Function ADL PLOF Comments Pt. was independent with daily tasks previous to this hospitalization. Ambulates with a cane. DME/Equipment Comments Pt. also has a walker and wheelchair. Occupation: Retired from [employer] Self: Yes OT Current Status Subjective No pain. however, pt. does state that he is having trouble breathing today. Pt. on bipap. Appearance Pt. in bed. Agrees to work with OT. Surgical nurse checks PICC line and wound care physician checks wound on leg. Mental Status/Objective Patient Orientation: Person, Place, Time, Situation Attachments: Garcia Catheter, IV, Oxygen, Telemetry Current Glasses/Contacts: Yes Hearing Aids: Yes Hand Dominance: Right Upper Extremity ROM Pt. is able to flex bilateral shoulders to approximately 90 degrees. Did not go further than this due to multiple lines. Upper Extremity Coordination Coordination in bilateral hands has improved from last week. Pt. is able to touch thumb to each finger and swelling has significantly went down in bilateral UE. Upper Extremity Strength NT due to PICC line, multiple lines and tubing. Edema: Pt. has swelling in bilateral UE due to multiple IV/fluids. ADL-Treatment Functional [place] Measure 0=Not Assessed/NA 4=Minimal Assistance 1=Total Assistance 5=Supervision or Setup 2=Maximal Assistance 6=Modified [place] 3=Moderate Assistance 7=Complete IndependenceIRFPAI Quality Coding Scale 6 Independent with activity with or without an assistive device 5 Patient requires set up or clean up by helper. Patient completes activity by themselves 4 Supervision or touching assist (CGA). [place] provide cues , steadying assist 3 The helper provides less than half the effort to complete the activity 2 The helper provides more than half the effort to complete the activity 1 Dependent. The helper does all the effort to complete an activity 7 Patient refused to complete or attempt activity 9 The patient did not perform the activity before the current illness or injury 88 Not attempted due to Medical conditions or safety concerns Transfers (B, C, W/C) (FIM): 3 (Mod assist overall supine-sit. Declined attempting to stand.) Other Treatments Pt. agrees to treatment. OT put bed in chair position. Pt. completed red theraband x 3 bilateral exercises x 10 reps each in all planes for increased strength. Pt. also tolerated general ROM exercises actively to increase fluid flow and strength. Completed overall muscle sets with quad sets, ankle pumps, glut sets and core strengthening exercises. PT came in room and OT assisted briefly with transfer to side of bed. Pt. sat on side of bed but became short of air with bipap on. Sats maintained appropriately via monitors. Transferred back to bed with mod assist and pt. positioned in bed. All needs met. Education OT Patient Education: Correct positioning, Energy conservation, Exercise program, Modified ADL techniques, Progress toward Goal/Update tx plan, Purpose of tx/functional activities, Reviewed precautions, Rehab process, Transfer techniques Teaching Recipient: Patient Teaching Methods: Demonstration, Discussion Response to Teaching: Verbalize Understanding, Return Demonstration OT Short Term Goals Short Term Goals Time Frame: Aug 11, 2017 Eating(FIM): 5 Grooming(FIM): 3 Bathing(FIM): 3 Upper Body Dressing(FIM): 3 Lower Body Dressing(FIM): 3 Toileting(FIM): 4 Transfers (B,C,W/C) (FIM): 3 Toilet/Commode Transfer(FIM): 3 Additional Short Term Goals: 1-Demonstrate ADL Tasks, 2-Verbalize Understanding , 3-ImproveStrength/Judson 1=Demonstrate adherence to instructed precautions during ADL tasks. 2=Patient will verbalize/demonstrate understanding of assistive devices/ modifications for ADL. 3=Patient will improve strength/tolerance for activity to enable patient to perform ADL's. OT Mining Engineering Technologist Goals Mining Engineering Technologist Goals Time Frame: Aug 25, 2017 Eating (FIM): 5 Grooming(FIM): 5 Bathing(FIM): 5 Upper Body Dressing(FIM): 5 Lower Body Dressing(FIM): 5 Toileting(FIM): 5 Transfers (B,C,W/C) (FIM): 5 Toilet/Commode Transfer(FIM): 5 Shower Transfer(FIM): 4 Additional Goals: 1-Demonstrate ADL Tasks, 2-Verbalize Understanding, 3- ImproveStrength/Judson 1=Demonstrate adherence to instructed precautions during ADL tasks. 2=Patient will verbalize/demonstrate understanding of assistive devices/ modifications for ADL. 3=Patient will improve strength/tolerance for activity to enable patient to perform ADL's. OT Education/Plan Problem List/Assessment Assessment: Decreased Activ Tolerance, Decreased UE Strength, Dependent Transfers, Impaired Bed Mobility, Impaired Coordination, Impaired Funct Balance , Impaired I ADL's, Impaired Self-Care Skills, Restricted Funct UE ROM Discharge Recommendations Plan/Recommendations: Continue POC Therapy D/C Recommendations: Acute Rehab Comment Equipment and discharge to be determined. Treatment Plan/Plan of Care Treatment,Training & Education: Yes Patient would benefit from OT for education, treatment and training to promote independence in ADL's, mobility, safety and/or upper extremity function for ADL' s. Plan of Care: ADL Retraining, Caregiver Training, Functional Mobility, UE Funct Exercise/Act Comment During this evaluation, PT focused on transfer training while OT assisted with ADL training, UE strengthening. Treatment Duration: Aug 25, 2017 Frequency: 5 times per week Estimated Hrs Per Day: .5 hour per day Agreement: Yes Rehab Potential: Guarded Pt. had change in medical status. Transferred to step down ICU. New orders sent and new evaluation completed. Time/GCodes Start Time: 13:35 Stop Time: 14:25 Total Time Billed (hr/min): 50 Billed Treatment Time 1, EVH x 15minutes, Ex x 35minutes ALISSA SERRA OT Aug 04, 2017 17:12
[2017-08-04] MEDS: ENOXAPARIN 40 MG/0.4 ML (LOVENOX) SYR SC SCH (18:39)
[2017-08-04] MEDS: DILTIAZEM 240 MG (CARDIZEM CD) CAP PO SCH (20:50)
[2017-08-04] MEDS: risperiDONE 0.25 MG (RisperDAL) TAB PO SCH (20:50)
--- NOTE | 2017-08-04 21:58 | Wound Care Progress Note ---
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 Review of Systems Date Seen by Provider: Aug 04, 2017 Time Seen by Provider: 12:30 Pulmonary: Dyspnea, Pleuritic Chest Pain Gastrointestinal: Other (Tape mooney on R lateral upper abdomen. Very superficial.) Objective Exam Last Set of Vital Signs Vital Signs Date Time Temp Pulse Resp B/P (MAP) Pulse Ox O2 Delivery O2 Flow Rate FiO2 08/04/17 20:00 NIV Bilevel 30 08/04/17 19:32 99.1 30.00 08/04/17 18:31 97 08/04/17 18:00 101 08/04/17 17:00 18 Capillary Refill : Less Than 3 Seconds I&O Intake and Output 08/04/17 00:00 Intake Total 1975 ml Output Total 3150 ml Balance -1175 ml Intake Oral 1975 ml Output Urine Total 3150 ml Skin: Other (R calf inferior -- 0.7 x 0.6 x 0.2 cm, base 50% granulation, 50% regenerating; R calf superior -- 3.1 x 2.5 x 0.3 cm, 50% gran, 50% regen) Results Lab Laboratory Tests 08/04/17 04:21: Blood Gas Puncture Site L RAD, Blood Gas Patient Temperature 97.4, Arterial Blood pH 7.44H, Arterial Blood Partial Pressure CO2 59H, Arterial Blood Partial Pressure O2 49L, Arterial Blood HCO3 40H, Arterial Blood Total CO2 41.6H, Arterial Blood Oxygen Saturation 84L, Arterial Blood Base Excess 14.5H, Jamil Test YES-POS, Blood Gas Ventilator Setting NO, Blood Gas Inspired Oxygen 45% BIPAP 08/04/17 04:35: White Blood Count 17.3H, Red Blood Count 3.12L, Hemoglobin 8.5L, Hematocrit 29L , Mean Corpuscular Volume 91, Mean Corpuscular Hemoglobin 27, Mean Corpuscular Hemoglobin Concent 30L, Red Cell Distribution Width 16.5H, Platelet Count 145, Mean Platelet Volume 10.5H, Neutrophils (%) (Auto) 95H, Lymphocytes (%) (Auto) 2L, Monocytes (%) (Auto) 3, Eosinophils (%) (Auto) 0, Basophils (%) (Auto) 0, Neutrophils # (Auto) 16.4H, Lymphocytes # (Auto) 0.4L, Monocytes # (Auto) 0.5, Eosinophils # (Auto) 0.0, Basophils # (Auto) 0.0, Neutrophils % (Manual) 97, Lymphocytes % (Manual) 2, Monocytes % (Manual) 1, Eosinophils % (Manual) 0, Basophils % (Manual) 0, Band Neutrophils 0, Hypochromasia SLIGHT, Anisocytosis SLIGHT, Tear Drop Cells SLIGHT, Sodium Level 142, Potassium Level 4.3, Chloride Level 93L, Carbon Dioxide Level 33H, Anion Gap 16H, Blood Urea Nitrogen 59H, Creatinine 1.11, Estimat Glomerular Filtration Rate > 60, BUN/Creatinine Ratio 53, Glucose Level 148H, Calcium Level 9.9, Phosphorus Level 3.5, Magnesium Level 1.9 08/04/17 09:57: Glucometer 214H 08/04/17 16:16: Glucometer 326H 08/04/17 20:38: Glucometer 373H Microbiology 07/24/17 Gram Stain - Final, Resulted 07/24/17 Bronchial Culture - Final, Resulted Staph, Coag Neg (Automation Qtp Tester) Normal jae 07/24/17 Fungal Culture - Preliminary, Resulted Assessment/Plan Assessment/Plan Assessment/Plan 1. healing R calf wounds. Plan: Continue same MIKAYLA LOPEZ MD Aug 04, 2017 21:58
[2017-08-05] VITALS (29 sets, daily range): BP systolic 116–208; BP diastolic 58–124
[2017-08-05] MEDS: RT-ALBUTEROL/IPRATROPIUM 3 ML (DUONEB) VIAL INH SCH ×6 (02:15→21:36)
[2017-08-05] MEDS: aCETylcysteine 20% (MUCOMYST) 30ML SOLN VIAL INH SCH ×6 (02:15→21:36)
[2017-08-05 04:26] LABS: BASOPHILS % (AUTO) 0 % (0-10); EOSINOPHILS % (AUTO) 0 % (0-10); HEMATOCRIT 28 % (40-54); HEMOGLOBIN 8.2 G/DL (13.3-17.7); LYMPHOCYTES # (AUTO) 0.4 X 10^3 (1.0-4.0); LYMPHOCYTES % (AUTO) 4 % (12-44); MEAN CORPUSCULAR HEMOGLOBIN 27 PG (25-34); MEAN CORPUSCULAR HGB CONC 30 G/DL (32-36); MEAN CORPUSCULAR VOLUME 91 FL (80-99); MEAN PLATELET VOLUME 10.4 FL (7.4-10.4); MONOCYTES # (AUTO) 0.5 X 10^3 (0.0-1.0); MONOCYTES % (AUTO) 5 % (0-12); NEUTROPHILS # (AUTO) 8.3 X 10^3 (1.8-7.8); NEUTROPHILS % (AUTO) 91 % (42-75); PLATELET COUNT 119 10^3/uL (130-400); RED BLOOD COUNT 3.03 10^6/uL (4.35-5.85); RED CELL DISTRIBUTION WIDTH 16.1 % (10.0-14.5); WHITE BLOOD COUNT 9.1 10^3/uL (4.3-11.0)
--- NOTE | 2017-08-05 04:34 | Pulmonary Progress Note ---
Subjective Time Seen by Provider: 04:35 Subjective/Events-last exam pt is looking much better today however still SOB and very weak. Exam Exam Vital Signs Date Time Temp Pulse Resp B/P (MAP) Pulse Ox O2 Delivery O2 Flow Rate FiO2 08/05/17 04:00 87 181/89 (119) 99 NIV Bilevel 30.00 08/05/17 02:00 74 148/77 (100) 95 NIV Bilevel 30.00 08/05/17 01:00 77 08/05/17 01:00 77 150/74 (99) 93 NIV Bilevel 30.00 08/05/17 00:17 77 17 96 30.00 08/05/17 00:00 NIV Bilevel 30 08/05/17 00:00 80 129/72 (91) 93 NIV Bilevel 30.00 08/04/17 23:19 84 93 NIV Bilevel 30.00 08/04/17 23:00 87 117/65 (82) 93 Vapotherm 55.00 20.00 08/04/17 22:43 92 18 93 30.00 08/04/17 22:00 90 142/79 (100) 92 Vapotherm 55.00 20.00 08/04/17 21:00 101 172/85 (114) 96 Vapotherm 55.00 20.00 08/04/17 20:00 NIV Bilevel 30 08/04/17 20:00 98 162/89 (113) 95 Vapotherm 55.00 20.00 08/04/17 19:32 99.1 Vapotherm 55.00 20.00 08/04/17 19:00 101 08/04/17 19:00 101 163/86 (111) 94 NIV Bilevel 35.00 08/04/17 18:31 97 Vapotherm 20.00 55 08/04/17 18:31 97 Vapotherm 20.00 55 08/04/17 18:00 101 166/78 (107) 95 NIV Bilevel 35.00 08/04/17 17:00 96 18 157/122 (134) 96 NIV Bilevel 35.00 08/04/17 16:39 88 18 96 30.00 08/04/17 16:16 98.1 08/04/17 16:00 NIV Bilevel 35 08/04/17 16:00 83 17 131/65 (87) 95 NIV Bilevel 35.00 08/04/17 15:00 88 17 128/69 (88) 95 NIV Bilevel 35.00 08/04/17 14:30 NIV Bilevel 35.00 08/04/17 14:29 97 23 98 35.00 08/04/17 14:00 106 24 171/99 (123) 100 NIV Bilevel 45.00 08/04/17 13:00 90 21 128/72 (90) 97 NIV Bilevel 45.00 08/04/17 13:00 90 08/04/17 12:34 96 19 98 45.00 08/04/17 12:15 98.0 08/04/17 12:00 104 26 155/80 (105) 99 NIV Bilevel 45.00 08/04/17 12:00 NIV Bilevel 45 08/04/17 11:00 97 23 132/73 (92) 92 NIV Bilevel 45.00 08/04/17 10:10 NIV Bilevel 45.00 08/04/17 10:08 113 30 97 45.00 08/04/17 10:00 102 21 152/77 (102) 96 Vapotherm 55.00 20.00 08/04/17 09:00 102 24 163/86 (111) 92 Vapotherm 55.00 20.00 08/04/17 09:00 99.4 08/04/17 08:00 Vapotherm 20.00 55 08/04/17 08:00 99.7 174/84 (114) Vapotherm 55.00 20.00 08/04/17 07:16 97 Vapotherm 20.00 55 08/04/17 07:04 97 Vapotherm 20.00 55 08/04/17 07:00 75 17 113/65 (81) 97 NIV Bilevel 45.00 08/04/17 07:00 75 08/04/17 06:00 83 17 127/65 (85) 99 NIV Bilevel 45.00 08/04/17 05:00 89 24 135/64 (87) 96 NIV Bilevel 45.00 I & O 08/05/17 06:59 Intake Total 1407 ml Output Total 1800 ml Balance -393 ml General Appearance: No Apparent Distress, WD/WN HEENT: PERRL/EOMI, Normal ENT Inspection Neck: Full Range of Motion, Normal Inspection, Non Tender, Supple, Carotid Bruit Respiratory: No Accessory Muscle Use, No Respiratory Distress, Wheezing Cardiovascular: Regular Rate, Rhythm, No Murmur Capillary Refill: Less Than 3 Seconds Gastrointestinal: normal bowel sounds, soft, no organomegaly, no pulsatile mass Extremity: Other (plus upper and lower extremity edema unchanged that is 2+) Neurologic/Psychiatric: Alert, Oriented x3, No Motor/Sensory Deficits Skin: Normal Color, Warm/Dry, Pallor Lymphatic: No Adenopathy Results Lab Laboratory Tests 08/03/17 12:20 08/04/17 04:35 Assessment/Plan Assessment/Plan Acute respiratory failure -SVNs --Change SVNs to Q2 - Solumedrol 40 IV Q 12 - decrease to 20 Q12 -Pt is requiring BiPAP currently will see how he does off BiPAP today Acute renal failure -improved -Monitor Anemia -cont to montior Anxiety -Risperdal , morphine, Ativan Back spasms -hx Churg Kunal -Pt follows with [facility] pulm/infectious disease Chronic elevation of right diaphragm with atelectasis pneumonia with Pseudomonas -Cefepime - D/C Immunosuppression hx Debility -PT/OT -hx of stable BETHANY nodule per CT scan Advance activity. UP to chair BID. 233 Clinical Quality Measures DVT/VTE Risk/Contraindication: Risk Factor Score Per Nursin RFS Level Per Nursing on Admit: 3=High MEDINA VILLEGAS DO Aug 05, 2017 04:34
[2017-08-05 05:07] LABS: BUN/CREATININE RATIO 63; CALCIUM 9.8 MG/DL (8.5-10.1); CARBON DIOXIDE 34 MMOL/L (21-32); CHLORIDE 94 MMOL/L (98-107); CREATININE SERUM 0.88 MG/DL (0.60-1.30); GFR ESTIMATED > 60; GLUCOSE 153 MG/DL (70-105); MAGNESIUM 1.8 MG/DL (1.8-2.4); PHOSPHORUS 3.1 MG/DL (2.3-4.7); POTASSIUM 3.6 MMOL/L (3.6-5.0); SODIUM 141 MMOL/L (135-145)
[2017-08-05] MEDS: POTASSIUM CL 10MEQ/50ML IVPB 50 ML IV SCH (05:15)
[2017-08-05] MEDS: MAGNESIUM 1 GM/100 ML IVPB 100 ML IV SCH (05:16)
[2017-08-05] MEDS: KCL 20 MEQ TAB (K-DUR) PO SCH ×2 (05:16)
[2017-08-05] MEDS: PANTOPRAZOLE 40 MG (PROTONIX) TAB PO SCH (05:27)
[2017-08-05] MEDS: SIMETHICONE 80 MG (MYLICON) CHEW PO SCH ×4 (05:27→20:52)
[2017-08-05] MEDS: hydrALAZINE (APESOLINE) 20 MG/ML VIAL IV PRN (05:27)
[2017-08-05] MEDS: HYDROcodone/APAP 10 MG/325 MG (LORTAB) TAB PO PRN ×4 (05:27→20:52)
[2017-08-05] MEDS: inSUlin (REGULAR) HUMAN 1 UNIT/0.01 ML (CHARGE PER UNIT) SC SCH ×4 (05:28→20:52)
[2017-08-05] MEDS ORDERED: KCL 20 MEQ TAB (K-DUR) PO ONE (05:30)
[2017-08-05] MEDS: RT-BUDESONIDE NEBS 0.5 MG/2ML (PULMICORT) AMP INH SCH ×2 (07:34→19:29)
--- NOTE | 2017-08-05 08:56 | Diagnostic Imaging Report ---
EXAMINATION: Portable erect AP chest obtained at 421h. INDICATION: Pneumonia When compared to the prior exam of 08/04/17, there has been no significant change. The heart is mildly enlarged but stable when compared to the prior exam. The dense consolidation in the left lower lobe seen previously is again evident and no different. This appearance would be consistent with pneumonia/atelectasis. There also appears to be some compressive atelectasis about the elevated right hemidiaphragm. The lung apices remain clear. The mediastinum is not widened. The osseous structures are intact. The left-sided PICC line is unchanged in position. IMPRESSION: Stable chest. There has been no adverse change since the prior exam. A followup study would be recommended for continued evaluation. Dictated by: Dictated on workstation # [id number]
--- NOTE | 2017-08-05 09:48 | Physical Therapy Daily Note ---
PT Daily Note-Current Subjective Patient on Bipap and reports fatigue and abdominal discomfort. Agrees to PT. Pain Numeric Pain Scale: 5-Moderate Pain Location: Upper, Lower Location Body Site: Abdomen Pain Description: Ache Mental Status Patient Orientation: Normal For Age Attachments: Oxygen, Garcia Catheter, IV Transfers Functional [place] Measure 0=Not Assessed/NA 4=Minimal Assistance 1=Total Assistance 5=Supervision or Setup 2=Maximal Assistance 6=Modified [place] 3=Moderate Assistance 7=Complete IndependenceIRFPAI Quality Coding Scale 6 Independent with activity with or without an assistive device 5 Patient requires set up or clean up by helper. Patient completes activity by themselves 4 Supervision or touching assist (CGA). [place] provide cues , steadying assist 3 The helper provides less than half the effort to complete the activity 2 The helper provides more than half the effort to complete the activity 1 Dependent. The helper does all the effort to complete an activity 7 Patient refused to complete or attempt activity 9 The patient did not perform the activity before the current illness or injury 88 Not attempted due to Medical conditions or safety concerns Transfers (B, C, W/C) (FIM): 4 Scootin Rollin Supine to/from Sit: 4 Patient improving with bed mobility and sitting EOB. Patient sat EOB x 20 min and performed exercises. Weight Bearing Right Lower Extremity: Right Full Weight Bearing Left Lower Extremity: Left Full Weight Bearing Exercises Supine Ex: Ankle pumps, Quad Set, Heel Slides, Straight leg raise, Hip abd/add Supine Reps: 15 (2 sets AAROM bilaterally) Seated Therapy Exercises: Ankle pumps, Long arc quads, Hip flexion Seated Reps: 25 (2 sets bilataerlly EOB) Assessment Patient in seated positioned in bed with needs met. Patient appears to have increase difficulty breathing on this date. PT will continue to increase activity as tolerated by patient. PT Short Term Goals Short Term Goals Transfers (B,C,W/C) (FIM): 3 PT Manager Of Creative Services Goals [facility] Goals PT [facility] Goals Time Frame: Sep 12, 2017 Transfers (B,C,W/C) (FIM): 6 Gait (FIM): 6 Gait distance (FIM): 3=150 ft Distance: 200' Gait Level of Assist: 6 Gait Assistive Device: FWW Stairs (FIM): 6 # of Steps: 12 Stairs Level Of Assist: 6 PT Plan Treatment/Plan Treatment Plan: Continue Plan of Care Treatment Plan: Bed Mobility, Education, Functional Activity [place], Functional Strength, Gait, Safety, Therapeutic Exercise, Transfers Treatment Duration: Sep 12, 2017 Frequency: 11 times per week Estimated Hrs Per Day: 1 hour per day (or PRN) Patient and/or Family Agrees t: Yes Time/GCodes Time In: 850 Time Out: 915 Total Billed Treatment Time: 25 Total Billed Treatment 1 visit EX x 2 25 min LYLA BLOUNT PT Aug 05, 2017 09:48
[2017-08-05] MEDS: POLYETHYLENE GLYCOL 17 GM (MIRALAX) PACK PO SCH ×2 (09:51→19:44)
[2017-08-05] MEDS: BUMETANIDE 1 MG/4 ML (BUMEX) VIAL IV SCH (09:52)
[2017-08-05] MEDS: methylPREDNISolone 40 MG/ML (Solu-MEDROL) VIAL IV SCH ×2 (09:52→20:51)
[2017-08-05] MEDS: LOSARTAN 25 MG (COZAAR) TAB PO SCH (09:53)
[2017-08-05] MEDS: inSUlin DETERMIR 1 UNIT/0.01 ML (LEVEMIR) CHARGE PER UNIT SQ SCH ×2 (09:53→20:52)
[2017-08-05] MEDS: VORICONAZOLE 200 MG TAB (VFEND) NON-FORMULARY PO SCH ×2 (09:54→20:53)
[2017-08-05] MEDS: TERIPARATIDE 600 MCG/2.4 ML (FORTEO) SYR SQ SCH (10:04)
--- NOTE | 2017-08-05 10:08 | Progress Note-Hospitalist ---
Subjective HPI/CC On Admission Date Seen by Provider: Aug 05, 2017 Time Seen by Provider: 09:00 Mr. 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 Initially sputum was clear but then it became colored. He increase his prednisone from 20 mg to 40 mg daily and presented to my office on the . There he did have significant wheezing but was maintaining saturations on room air 95-96 percent. He did not wish to be admitted to the hospital at that time so he was discharged on Levaquin. He has a past history of Pseudomonas that was pansensitive cultured from a venous insufficiency ulcer but also required hyperbaric oxygen therapy on his right lower extremity. It has been improving through wound care but at one point was quite large and he still has a significant area of skin breakdown although he does have pink granulation tissue no increase in pain and they have been pleased as of late with wound healing. He called my office the afternoon of the reporting the onset of severe left-sided chest pain worse with breathing worse with cough that actually followed a paroxysm of cough. It was too painful to take deep breaths and he was feeling more short of breath. Sputum culture obtained as an outpatient was growing Pseudomonas on admission but sensitivities were not yet available. He is at high risk for progression to overt respiratory failure and was admitted to the intensive care unit for close monitoring and further therapeutics. Past medical history is most significant for Churg-Nils tenting as pulmonary hemorrhage in 2001. Other than prednisone his only other medication is IVIG. He has a history of disseminated histoplasmosis for which she has been on voriconazole for the past several years continues to have elevated androgen levels and urine and blood. They have been controlled however with chronic suppressive voriconazole therapy. He follows at for his pulmonary and infectious disease issues. 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 He has been on Forteo as of late but I did have concerns over possible cough related rib fracture considering this history. Subjective/Events-last exam patient was feeling well until around 6 a.m. when he developed the onset of epigastric pain. Tried an antacid tablet and Gas-X with no relief. He had had breakfast earlier finished it without difficulty. Last bowel movement was yesterday reportedly formed a melanotic no bright red blood. Pain is worse with movement especially when trying to sit up.e denies radiation to the back or elsewhere. Objective Exam Vital Signs Vital Signs - First Documented 07/30/17 00:00 Temp 99.8 Pulse 96 Resp 27 B/P (MAP) 138/38 (71) Pulse Ox 97 O2 Delivery NIV Bilevel O2 Flow Rate 30.00 FiO2 30 Capillary Refill : Less Than 3 Seconds General Appearance: Anxious, Chronically ill, Mild Distress Respiratory: No Accessory Muscle Use, No Respiratory Distress, Other (chest is clear anteriorly with BiPAP on diminished breath sounds in both bases right worse than left no wheezes noted) Gastrointestinal: Normal Bowel Sounds, No Organomegaly, No Pulsatile Mass, Soft , Other (epigastric pain to palpation without rebound or guarding.) Extremity: Other (since I last saw the patient on Friday there is been significant decrease in extremity edema) Results/Procedures Lab Laboratory Tests 08/05/17 04:10 Assessment/Plan Assessment and Plan Assess & Plan/Chief Complaint 1. Pseudomonas bronchitis with acute exacerbation of underlying lung disease with secondary respiratory failure former resolved. espiratory status slowly improving again patient is appetite has been good and he is able to eat using Vapotherm. Respiratory reserve is still minimal although slowly improving continue physical therapy. 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 glucose control improving with decrease in Solu-Medrol no hypoglycemia noted. 4. Left chest wall pain favor muscle spasm as it is a little more diffuse than one would expect for occult rib fracture as well as minimal improvement on morphine will add IV Norflex patient warned about sedation continue O2 sat monitoring continuous. 5. Slowly increasing BUN and creatinine compatible with relative intravascular volume depletion improving likely due to improved oxygenation status. Complex medical management. 6. Epigastric pain with decreasing white count doubt underlying infectious etiology. We'll continue proton pump inhibitor therapy. we'll check lipase level to rule out pancreatitis.. 7. History of osteoporosis on Forteo will resume injections. ERIC ADAM MD Aug 05, 2017 10:08
--- NOTE | 2017-08-05 13:18 | Physical Therapy Daily Note ---
PT Daily Note-Current Subjective Patient had just completed OT and is very fatigued. Agrees to exercises. Pain Numeric Pain Scale: 5-Moderate Pain Location: Lower Location Body Site: Abdomen Pain Description: Ache, Pressure Mental Status Patient Orientation: Normal For Age Attachments: Oxygen, Garcia Catheter, IV Transfers Functional [place] Measure 0=Not Assessed/NA 4=Minimal Assistance 1=Total Assistance 5=Supervision or Setup 2=Maximal Assistance 6=Modified [place] 3=Moderate Assistance 7=Complete IndependenceIRFPAI Quality Coding Scale 6 Independent with activity with or without an assistive device 5 Patient requires set up or clean up by helper. Patient completes activity by themselves 4 Supervision or touching assist (CGA). [place] provide cues , steadying assist 3 The helper provides less than half the effort to complete the activity 2 The helper provides more than half the effort to complete the activity 1 Dependent. The helper does all the effort to complete an activity 7 Patient refused to complete or attempt activity 9 The patient did not perform the activity before the current illness or injury 88 Not attempted due to Medical conditions or safety concerns Weight Bearing Right Lower Extremity: Right Full Weight Bearing Left Lower Extremity: Left Full Weight Bearing Exercises Supine Ex: Ankle pumps, Quad Set, Heel Slides, Straight leg raise, Hip abd/add Supine Reps: 15 (2 sets AAROM) Assessment Patient is currently on the vapotherm at 55%. Patient tolerated treatment well. Patient voices concern with abdominal pain. PT Short Term Goals Short Term Goals Transfers (B,C,W/C) (FIM): 3 PT Senior Care Goals Senior Care Goals PT Senior Care Goals Time Frame: Sep 12, 2017 Transfers (B,C,W/C) (FIM): 6 Gait (FIM): 6 Gait distance (FIM): 3=150 ft Distance: 200' Gait Level of Assist: 6 Gait Assistive Device: FWW Stairs (FIM): 6 # of Steps: 12 Stairs Level Of Assist: 6 PT Plan Treatment/Plan Treatment Plan: Continue Plan of Care Treatment Plan: Bed Mobility, Education, Functional Activity [place], Functional Strength, Gait, Safety, Therapeutic Exercise, Transfers Treatment Duration: Sep 12, 2017 Frequency: 11 times per week Estimated Hrs Per Day: 1 hour per day (or PRN) Patient and/or Family Agrees t: Yes Time/GCodes Time In: 1230 Time Out: 1245 Total Billed Treatment Time: 15 Total Billed Treatment 1 visit EX 15 min MINE,LYLA PT Aug 05, 2017 13:18
--- NOTE | 2017-08-05 13:25 | Occupational Ther Daily Note ---
OT Current Status-Daily Note Subjective Pt. states that his abdomen hurts. Does not report a pain level. Appearance Pt. on bipap when OT entered room. Pt. getting ready to be put on vapo therm. Pt. is agreeable to treatment however after this. Mental Status/Objective Patient Orientation: Person, Place, Time, Situation Functional [place] Measure 0=Not Assessed/NA 4=Minimal Assistance 1=Total Assistance 5=Supervision or Setup 2=Maximal Assistance 6=Modified [place] 3=Moderate Assistance 7=Complete [place] Attachments: Garcia Catheter, IV, Oxygen, Telemetry Other Treatment Pt. is put on vapo-therm. Pt. agrees to treatment. Pt. completes bilateral UE exercises x 3 exercises with red theraband. Tolerated 15 reps each x 2 sets with increased time needed. Pt. required several brief rest breaks. Tolerated this well and reminded to take deep slow breaths. Pt. then transferred supine- sit with min/mod assist. Sat on side of bed approximately 30 minutes with cues to weight shift, lean forward/backward. Pt. states that if feels good to sit up , but that he has pain at times in his abdomen. All needs met. Layed back down with mod assist and pt. turned onto side with assist from nursing. Education OT Patient Education: Correct positioning, Exercise program, Modified ADL techniques, Progress toward Goal/Update tx plan, Purpose of tx/functional activities, Reviewed precautions, Rehab process, Transfer techniques Teaching Recipient: Patient Teaching Methods: Demonstration, Discussion Response to Teaching: Verbalize Understanding, Return Demonstration OT Short Term Goals Short Term Goals Time Frame: Aug 11, 2017 Eating(FIM): 5 Grooming(FIM): 3 Bathing(FIM): 3 Upper Body Dressing(FIM): 3 Lower Body Dressing(FIM): 3 Toileting(FIM): 4 Transfers (B,C,W/C) (FIM): 3 Toilet/Commode Transfer(FIM): 3 Additional Short Term Goals: 1-Demonstrate ADL Tasks, 2-Verbalize Understanding , 3-ImproveStrength/[place] 1=Demonstrate adherence to instructed precautions during ADL tasks. 2=Patient will verbalize/demonstrate understanding of assistive devices/ modifications for ADL. 3=Patient will improve strength/tolerance for activity to enable patient to perform ADL's. OT Event Promoter Goals Event Promoter Goals Time Frame: Aug 25, 2017 Eating (FIM): 5 Grooming(FIM): 5 Bathing(FIM): 5 Upper Body Dressing(FIM): 5 Lower Body Dressing(FIM): 5 Toileting(FIM): 5 Transfers (B,C,W/C) (FIM): 5 Toilet/Commode Transfer(FIM): 5 Shower Transfer(FIM): 4 Additional Goals: 1-Demonstrate ADL Tasks, 2-Verbalize Understanding, 3- ImproveStrength/Judson 1=Demonstrate adherence to instructed precautions during ADL tasks. 2=Patient will verbalize/demonstrate understanding of assistive devices/ modifications for ADL. 3=Patient will improve strength/tolerance for activity to enable patient to perform ADL's. OT Education/Plan Problem List/Assessment Assessment: Decreased Activ Tolerance, Decreased UE Strength, Dependent Transfers, Impaired Bed Mobility, Impaired Funct Balance, Impaired I ADL's, Impaired Self-Care Skills, Restricted Funct UE ROM Discharge Recommendations Plan/Recommendations: Continue POC Therapy D/C Recommendations: Acute Rehab Target Placement Pt. would benefit from inpt rehab for continued strengthening, when medically ready. Treatment Plan/Plan of Care Treatment,Training & Education: Yes Patient would benefit from OT for education, treatment and training to promote independence in ADL's, mobility, safety and/or upper extremity function for ADL' s. Plan of Care: ADL Retraining, Caregiver Training, Functional Mobility, UE Funct Exercise/Act Treatment Duration: Aug 25, 2017 Frequency: 5 times per week Estimated Hrs Per Day: .5 hour per day Agreement: Yes Rehab Potential: Fair Time/GCodes Start Time: 11:20 Stop Time: 12:20 Total Time Billed (hr/min): 60 Billed Treatment Time 1, EX x 30minutes, FA x 30minutes ALISSA SERRA OT Aug 05, 2017 13:25
[2017-08-05] MEDS: ENOXAPARIN 40 MG/0.4 ML (LOVENOX) SYR SC SCH (17:27)
[2017-08-05] MEDS: SENNOSIDES 8.6 MG (SENOKOT) TAB PO PRN (20:52)
[2017-08-05] MEDS: DILTIAZEM 240 MG (CARDIZEM CD) CAP PO SCH (20:52)
[2017-08-05] MEDS: risperiDONE 0.25 MG (RisperDAL) TAB PO SCH (20:52)
[2017-08-06] VITALS (19 sets, daily range): BP systolic 120–177; BP diastolic 62–92
[2017-08-06] MEDS: RT-ALBUTEROL/IPRATROPIUM 3 ML (DUONEB) VIAL INH SCH ×6 (02:08→23:03)
[2017-08-06] MEDS: aCETylcysteine 20% (MUCOMYST) 30ML SOLN VIAL INH SCH ×6 (02:09→23:03)
[2017-08-06 04:34] LABS: BASOPHILS % (AUTO) 0 % (0-10); EOSINOPHILS % (AUTO) 0 % (0-10); HEMATOCRIT 26 % (40-54); HEMOGLOBIN 7.6 G/DL (13.3-17.7); LYMPHOCYTES # (AUTO) 0.2 X 10^3 (1.0-4.0); LYMPHOCYTES % (AUTO) 3 % (12-44); MEAN CORPUSCULAR HEMOGLOBIN 27 PG (25-34); MEAN CORPUSCULAR HGB CONC 30 G/DL (32-36); MEAN CORPUSCULAR VOLUME 92 FL (80-99); MEAN PLATELET VOLUME 10.7 FL (7.4-10.4); MONOCYTES # (AUTO) 0.5 X 10^3 (0.0-1.0); MONOCYTES % (AUTO) 7 % (0-12); NEUTROPHILS # (AUTO) 6.7 X 10^3 (1.8-7.8); NEUTROPHILS % (AUTO) 90 % (42-75); PLATELET COUNT 97 10^3/uL (130-400); RED BLOOD COUNT 2.81 10^6/uL (4.35-5.85); RED CELL DISTRIBUTION WIDTH 16.2 % (10.0-14.5); WHITE BLOOD COUNT 7.5 10^3/uL (4.3-11.0)
[2017-08-06 05:05] LABS: BUN/CREATININE RATIO 61; CALCIUM 8.8 MG/DL (8.5-10.1); CARBON DIOXIDE 35 MMOL/L (21-32); CHLORIDE 96 MMOL/L (98-107); CREATININE SERUM 0.84 MG/DL (0.60-1.30); GFR ESTIMATED > 60; GLUCOSE 144 MG/DL (70-105); MAGNESIUM 1.6 MG/DL (1.8-2.4); PHOSPHORUS 3.3 MG/DL (2.3-4.7); SODIUM 141 MMOL/L (135-145)
[2017-08-06] MEDS: POTASSIUM CL 10MEQ/50ML IVPB 50 ML IV SCH (05:35)
[2017-08-06] MEDS: MAGNESIUM 1 GM/100 ML IVPB 100 ML IV SCH ×3 (05:36→07:23)
[2017-08-06] MEDS: inSUlin (REGULAR) HUMAN 1 UNIT/0.01 ML (CHARGE PER UNIT) SC SCH ×4 (05:36→21:13)
[2017-08-06] MEDS: KCL 20 MEQ TAB (K-DUR) PO SCH ×2 (05:36)
[2017-08-06] MEDS: RT-BUDESONIDE NEBS 0.5 MG/2ML (PULMICORT) AMP INH SCH ×2 (07:34→19:46)
--- NOTE | 2017-08-06 07:42 | Pulmonary Progress Note ---
Subjective Time Seen by Provider: 12:37 Subjective/Events-last exam pt is doing much better. Exam Exam Vital Signs Date Time Temp Pulse Resp B/P (MAP) Pulse Ox O2 Delivery O2 Flow Rate FiO2 08/06/17 06:00 79 18 157/92 (113) 96 NIV Bilevel 30.00 08/06/17 05:00 80 18 159/83 (108) 94 NIV Bilevel 30.00 08/06/17 04:32 98.4 NIV Bilevel 30.00 08/06/17 04:09 78 30 96 30.00 08/06/17 04:00 71 16 135/67 (89) 96 NIV Bilevel 30.00 08/06/17 04:00 Vapotherm 25.00 55 08/06/17 03:00 74 16 169/82 (111) 96 NIV Bilevel 30.00 08/06/17 02:10 82 23 95 30.00 08/06/17 02:00 76 160/85 (110) NIV Bilevel 30.00 08/06/17 01:00 84 18 155/85 (108) 91 NIV Bilevel 30.00 08/06/17 01:00 81 08/06/17 00:15 98.7 08/06/17 00:00 86 25 146/82 (103) 93 NIV Bilevel 30.00 08/05/17 23:45 90 28 93 30.00 08/05/17 23:00 87 20 140/62 (88) 98 Vapotherm 55.00 25.00 08/05/17 22:00 96 26 152/68 (96) 95 Vapotherm 55.00 25.00 08/05/17 21:38 96 Vapotherm 25.00 55 08/05/17 21:00 95 49 153/64 (93) 97 Vapotherm 55.00 25.00 08/05/17 20:00 89 23 162/78 (106) 95 55.00 25.00 08/05/17 20:00 Vapotherm 25.00 55 08/05/17 19:30 95 Vapotherm 25.00 55 08/05/17 19:24 95 Vapotherm 25.00 55 08/05/17 19:15 98.4 Vapotherm 55.00 25.00 08/05/17 19:07 88 08/05/17 19:00 94 27 174/117 (136) 100 Vapotherm 55.00 25.00 08/05/17 18:00 92 22 175/109 (131) 98 Vapotherm 55.00 25.00 08/05/17 17:00 88 25 99 Vapotherm 55.00 25.00 08/05/17 16:28 155/74 (101) 08/05/17 16:26 180/81 (114) 08/05/17 16:00 95 26 155/102 (119) 96 Vapotherm 55.00 25.00 08/05/17 16:00 98.7 08/05/17 15:36 Vapotherm 25.00 55 08/05/17 15:33 100 Vapotherm 55.00 25.00 08/05/17 15:23 99 Vapotherm 25.00 55 08/05/17 15:00 104 21 151/103 (119) 99 Vapotherm 55.00 20.00 08/05/17 14:00 94 165/113 (130) Vapotherm 55.00 20.00 08/05/17 13:00 87 22 134/90 (105) Vapotherm 55.00 20.00 08/05/17 13:00 87 08/05/17 12:41 Vapotherm 20.00 55 08/05/17 12:00 101 13 149/90 (109) 93 Vapotherm 55.00 20.00 08/05/17 12:00 100.0 08/05/17 11:07 Vapotherm 55.00 20.00 08/05/17 11:07 82 23 96 30.00 08/05/17 11:00 81 120/82 (95) 95 NIV Bilevel 30.00 08/05/17 10:00 91 158/120 (133) 92 NIV Bilevel 30.00 08/05/17 09:00 NIV Bilevel 30 08/05/17 09:00 104 208/124 (152) 95 NIV Bilevel 30.00 08/05/17 08:51 87 20 95 30.00 08/05/17 08:14 97.7 81 20 116/58 (77) 96 NIV Bilevel 30.00 08/05/17 07:45 90 20 96 30.00 I & O 08/06/17 07:00 Intake Total 886 ml Output Total 1925 ml Balance -1039 ml General Appearance: Anxious, Chronically ill, Mild Distress HEENT: PERRL/EOMI, Normal ENT Inspection Neck: Full Range of Motion, Normal Inspection, Non Tender, Supple, Carotid Bruit Respiratory: No Accessory Muscle Use, No Respiratory Distress, Other (chest is clear anteriorly with BiPAP on diminished breath sounds in both bases right worse than left no wheezes noted) Cardiovascular: Regular Rate, Rhythm, No Murmur Capillary Refill: Less Than 3 Seconds Gastrointestinal: normal bowel sounds, soft, no organomegaly, no pulsatile mass Extremity: Other (since I last saw the patient on Friday there is been significant decrease in extremity edema) Neurologic/Psychiatric: Alert, Oriented x3, No Motor/Sensory Deficits Skin: Normal Color, Warm/Dry, Pallor Lymphatic: No Adenopathy Results Lab Laboratory Tests 08/05/17 04:10 08/06/17 04:15 Assessment/Plan Assessment/Plan Acute respiratory failure -SVNs --Change SVNs to Q2 - Solumedrol 40 IV Q 12 - decrease to 20 Q12 -Pt is requiring BiPAP currently will see how he does off BiPAP today Acute renal failure -improved -Monitor Anemia -cont to montior Anxiety -Risperdal , morphine, Ativan Back spasms -hx Churg Kunal -Pt follows with [facility] pulm/infectious disease Chronic elevation of right diaphragm with atelectasis pneumonia with Pseudomonas -Cefepime - D/C Immunosuppression hx Debility -PT/OT -hx of stable BETHANY nodule per CT scan Advance activity. UP to chair BID. 233 Clinical Quality Measures DVT/VTE Risk/Contraindication: Risk Factor Score Per Nursin RFS Level Per Nursing on Admit: 3=High MEDINA VILLEGAS DO Aug 06, 2017 07:42
[2017-08-06] MEDS ORDERED: IBUPROFEN 600 MG (MOTRIN) TAB PO PRN (07:45)
--- NOTE | 2017-08-06 07:57 | Diagnostic Imaging Report ---
INDICATION: Pneumonia. Comparison with 08/05/2017. FINDINGS: Consolidated infiltrate in the left lung base with bilateral basilar atelectasis again noted. Heart not enlarged. The upper lungs are clear. There is no evidence of pulmonary edema. Left PICC line remains unchanged. IMPRESSION: 1. Persistent consolidated infiltrate left lower lobe without significant change since previous exam. Dictated by: Dictated on workstation # [id number]
[2017-08-06] MEDS: POLYETHYLENE GLYCOL 17 GM (MIRALAX) PACK PO SCH ×2 (08:03→20:18)
[2017-08-06] MEDS: PANTOPRAZOLE 40 MG (PROTONIX) TAB PO SCH (08:04)
[2017-08-06] MEDS: BUMETANIDE 1 MG/4 ML (BUMEX) VIAL IV SCH (08:04)
[2017-08-06] MEDS: LOSARTAN 25 MG (COZAAR) TAB PO SCH (08:04)
[2017-08-06] MEDS: SIMETHICONE 80 MG (MYLICON) CHEW PO SCH ×4 (08:04→20:17)
[2017-08-06] MEDS: methylPREDNISolone 40 MG/ML (Solu-MEDROL) VIAL IV SCH ×2 (08:04→20:18)
[2017-08-06] MEDS: inSUlin DETERMIR 1 UNIT/0.01 ML (LEVEMIR) CHARGE PER UNIT SQ SCH ×2 (08:05→21:13)
[2017-08-06] MEDS: VORICONAZOLE 200 MG TAB (VFEND) NON-FORMULARY PO SCH ×2 (08:05→20:17)
[2017-08-06] MEDS: TERIPARATIDE 600 MCG/2.4 ML (FORTEO) SYR SQ SCH (08:13)
--- NOTE | 2017-08-06 08:54 | Progress Note-Hospitalist ---
Subjective HPI/CC On Admission Date Seen by Provider: Aug 06, 2017 Time Seen by Provider: 08:00 Mr. 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 Initially sputum was clear but then it became colored. He increase his prednisone from 20 mg to 40 mg daily and presented to my office on the . There he did have significant wheezing but was maintaining saturations on room air 95-96 percent. He did not wish to be admitted to the hospital at that time so he was discharged on Levaquin. He has a past history of Pseudomonas that was pansensitive cultured from a venous insufficiency ulcer but also required hyperbaric oxygen therapy on his right lower extremity. It has been improving through wound care but at one point was quite large and he still has a significant area of skin breakdown although he does have pink granulation tissue no increase in pain and they have been pleased as of late with wound healing. He called my office the afternoon of the reporting the onset of severe left-sided chest pain worse with breathing worse with cough that actually followed a paroxysm of cough. It was too painful to take deep breaths and he was feeling more short of breath. Sputum culture obtained as an outpatient was growing Pseudomonas on admission but sensitivities were not yet available. He is at high risk for progression to overt respiratory failure and was admitted to the intensive care unit for close monitoring and further therapeutics. Past medical history is most significant for Churg-Nils tenting as pulmonary hemorrhage in 2001. Other than prednisone his only other medication is IVIG. He has a history of disseminated histoplasmosis for which she has been on voriconazole for the past several years continues to have elevated androgen levels and urine and blood. They have been controlled however with chronic suppressive voriconazole therapy. He follows at for his pulmonary and infectious disease issues. 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 He has been on Forteo as of late but I did have concerns over possible cough related rib fracture considering this history. Subjective/Events-last exam Patient complains of epigastric pain mostly with movement or with cough. His appetite is been normal is been 2 days since his last bowel movement which was not hard. He's been tolerating high flow oxygen and doing well better with bedside physical therapy with less respiratory distress although still quite fatigued with poor aerobic tolerance. Objective Exam Vital Signs Vital Signs Date Time Temp Pulse Resp B/P (MAP) Pulse Ox O2 Delivery O2 Flow Rate FiO2 07/31/17 00:00 74 21 149/55 (86) 95 NIV Bilevel 25.00 07/31/17 00:00 98.2 07/31/17 00:00 25 Capillary Refill : Less Than 3 Seconds General Appearance: Chronically ill Respiratory: Other (Decreased respiratory rates 18 and nonlabored chest is clear anteriorly all improved from the weekend.) Cardiovascular: Regular Rate, Rhythm, No Gallop, No JVD, No Murmur, Normal Peripheral Pulses Extremity: Other (Strongly edema now resolved lower extremity 1+ improving) Results/Procedures Lab Laboratory Tests 08/06/17 04:15 Assessment/Plan Assessment and Plan Assess & Plan/Chief Complaint 1. Pseudomonas bronchitis with acute exacerbation of underlying lung disease with secondary respiratory failure former resolved. espiratory status slowly improving again patient is appetite has been good and he is able to eat using Vapotherm. Respiratory reserve is still minimal although slowly improving continue physical therapy. 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 glucose control improving with decrease in Solu-Medrol no hypoglycemia noted. 4. Left chest wall pain favor muscle spasm as it is a little more diffuse than one would expect for occult rib fracture as well as minimal improvement on morphine will add IV Norflex patient warned about sedation continue O2 sat monitoring continuous. 5. Slowly increasing BUN and creatinine compatible with relative intravascular volume depletion improving likely due to improved oxygenation status. Complex medical management. 6. Epigastric pain with decreasing white count doubt underlying infectious etiology. We'll continue proton pump inhibitor therapy. we'll check lipase level to rule out pancreatitis.. 7. History of osteoporosis on Forteo will resume injections. 8. Epigastric pain compatible with an abdominal wall muscle etiology. There is no evidence for hematoma formation and this is likely related to deconditioning from his inactivity. Lipase level was normal his appetite has been good and other than hypomagnesemia which is being replaced all labs of been improved. 9. Patient had heard that receiving a second flu shot may be of benefit this season there is no downside of this other than the fact that there may be lack of coverage we'll go ahead and revaccinate considering his immunocompromised status and the fact that his exposure risk is still high. ERIC ADAM MD Aug 06, 2017 08:54
[2017-08-06] MEDS ORDERED: INFLUENZA TRIvalent 2017-2018 0.5 ML/45 MCG SYR IM ONE (09:00)
[2017-08-06] MEDS: HYDROcodone/APAP 10 MG/325 MG (LORTAB) TAB PO PRN ×4 (09:48→23:51)
--- NOTE | 2017-08-06 13:37 | Physical Therapy Daily Note ---
PT Daily Note-Current Subjective Pt reports he is having a good and productive day. Mental Status Patient Orientation: Normal For Age Transfers Functional [place] Measure 0=Not Assessed/NA 4=Minimal Assistance 1=Total Assistance 5=Supervision or Setup 2=Maximal Assistance 6=Modified [place] 3=Moderate Assistance 7=Complete IndependenceIRFPAI Quality Coding Scale 6 Independent with activity with or without an assistive device 5 Patient requires set up or clean up by helper. Patient completes activity by themselves 4 Supervision or touching assist (CGA). [place] provide cues , steadying assist 3 The helper provides less than half the effort to complete the activity 2 The helper provides more than half the effort to complete the activity 1 Dependent. The helper does all the effort to complete an activity 7 Patient refused to complete or attempt activity 9 The patient did not perform the activity before the current illness or injury 88 Not attempted due to Medical conditions or safety concerns Supine to/from Sit: 3 Sit to/from Stand: 1 Attempted sit to stand transfers. Pt unable to generate sufficient force through LE to come to standing. Weight Bearing Right Lower Extremity: Right Full Weight Bearing Left Lower Extremity: Left Full Weight Bearing Exercises Supine Ex: Ankle pumps, Quad Set, Glut sets, Lower trunk rotation, Heel Slides , Knee to chest, Short Arc Quads, Resisted flex/ext, Hip abd/add Supine Reps: 10 Seated Therapy Exercises: Ankle pumps, Long arc quads, Hip flexion, Kicking activity Seated Reps: 10 Manual resistance for LAQ, seated hip extension, and hip flexion. Attempted sit to stand, but not able to safely complete due to LE weakness. Assessment Current Status: Good Progress Patient progressing in regard to functional mobility and activity tolerance. He will benefit from continued therapy to progress strength and mobility. PT Short Term Goals Short Term Goals Transfers (B,C,W/C) (FIM): 3 PT Poultry Dresser Goals Poultry Dresser Goals PT Senior Care Goals Time Frame: Sep 12, 2017 Transfers (B,C,W/C) (FIM): 6 Gait (FIM): 6 Gait distance (FIM): 3=150 ft Distance: 200' Gait Level of Assist: 6 Gait Assistive Device: FWW Stairs (FIM): 6 # of Steps: 12 Stairs Level Of Assist: 6 PT Plan Problem List Problem List: Activity Tolerance, Functional Strength, Gait, Transfer Treatment/Plan Treatment Plan: Continue Plan of Care Treatment Plan: Bed Mobility, Education, Functional Activity [place], Functional Strength, Gait, Safety, Therapeutic Exercise, Transfers Treatment Duration: Sep 12, 2017 Frequency: 11 times per week Estimated Hrs Per Day: 1 hour per day (or PRN) Patient and/or Family Agrees t: Yes Time/GCodes Time In: 1310 Time Out: 1340 Total Billed Treatment Time: 30 Total Billed Treatment visit, ex 20, FA 10 BENJA GATES PT Aug 06, 2017 13:37
--- NOTE | 2017-08-06 14:32 | Occupational Ther Daily Note ---
OT Current Status-Daily Note Subjective Pt. states that he still has pain in abdomen. States that he thinks it might be a "pulled muscle." Appearance Pt. in bed on vapotherm. Agrees to work with OT. Mental Status/Objective Patient Orientation: Person, Place, Time, Situation Functional [place] Measure 0=Not Assessed/NA 4=Minimal Assistance 1=Total Assistance 5=Supervision or Setup 2=Maximal Assistance 6=Modified [place] 3=Moderate Assistance 7=Complete [place] Attachments: IV, Oxygen Other Treatment Pt. transferred supine-sit with mod assist and increased time needed. Sats varied throughout treatment from 95%-80%. However, whenever sats dropped, pt. would stop and rest and they would come back to appropriate level. Pt. sat on side of bed and practiced breathing techniques. OT placed foot pedal device that pt's family brought in on floor. Attempted for pt. to do this but he states that he does not have the strength today. OT placed this on tabletop and pt. able to do this task for approximately 45 seconds- 1 1/2 minutes at a time. Would take a rest break and let oxygen recover. Attempted half sit- stands with pt. leaning forward and practicing pushing up from bed level. Pt. states that he feels like he is engaging his quads, core, and hams. Able to do this for several attempts and then fatigues. Transferred back supine-sit with mod assist. Pt. bed put into Trendelenburg and pt. able to assist with bed mobility. Pillows placed appropriately and all needs met. Education OT Patient Education: Correct positioning, Exercise program, Modified ADL techniques, Progress toward Goal/Update tx plan, Purpose of tx/functional activities, Reviewed precautions, Rehab process, Transfer techniques Teaching Recipient: Patient Teaching Methods: Demonstration, Discussion Response to Teaching: Verbalize Understanding, Return Demonstration OT Short Term Goals Short Term Goals Time Frame: Aug 11, 2017 Eating(FIM): 5 Grooming(FIM): 3 Bathing(FIM): 3 Upper Body Dressing(FIM): 3 Lower Body Dressing(FIM): 3 Toileting(FIM): 4 Transfers (B,C,W/C) (FIM): 3 Toilet/Commode Transfer(FIM): 3 Additional Short Term Goals: 1-Demonstrate ADL Tasks, 2-Verbalize Understanding , 3-ImproveStrength/[place] 1=Demonstrate adherence to instructed precautions during ADL tasks. 2=Patient will verbalize/demonstrate understanding of assistive devices/ modifications for ADL. 3=Patient will improve strength/tolerance for activity to enable patient to perform ADL's. OT Usp Goals Usp Goals Time Frame: Aug 25, 2017 Eating (FIM): 5 Grooming(FIM): 5 Bathing(FIM): 5 Upper Body Dressing(FIM): 5 Lower Body Dressing(FIM): 5 Toileting(FIM): 5 Transfers (B,C,W/C) (FIM): 5 Toilet/Commode Transfer(FIM): 5 Shower Transfer(FIM): 4 Additional Goals: 1-Demonstrate ADL Tasks, 2-Verbalize Understanding, 3- ImproveStrength/[place] 1=Demonstrate adherence to instructed precautions during ADL tasks. 2=Patient will verbalize/demonstrate understanding of assistive devices/ modifications for ADL. 3=Patient will improve strength/tolerance for activity to enable patient to perform ADL's. OT Education/Plan Problem List/Assessment Assessment: Decreased Activ Tolerance, Decreased UE Strength, Dependent Transfers, Impaired Bed Mobility, Impaired Funct Balance, Impaired I ADL's, Impaired Self-Care Skills, Restricted Funct UE ROM Discharge Recommendations Plan/Recommendations: Continue POC Therapy D/C Recommendations: Acute Rehab Treatment Plan/Plan of Care Treatment,Training & Education: Yes Patient would benefit from OT for education, treatment and training to promote independence in ADL's, mobility, safety and/or upper extremity function for ADL' s. Plan of Care: ADL Retraining, Caregiver Training, Functional Mobility, UE Funct Exercise/Act Treatment Duration: Aug 25, 2017 Frequency: 5 times per week Estimated Hrs Per Day: .5 hour per day Agreement: Yes Rehab Potential: Fair Time/GCodes Start Time: 09:20 Stop Time: 10:10 Total Time Billed (hr/min): 50 Billed Treatment Time 1, FA x 35minutes, EX x 15minutes ALISSA SERRA OT Aug 06, 2017 14:32
--- NOTE | 2017-08-06 16:38 | Physical Therapy Progress Note ---
Therapy Progress Note Attempted PT visit this date, pt was fatigued and declined therapy this pm. Reports he worked hard earlier. KAMRON ASHER PT Aug 06, 2017 16:38
[2017-08-06] MEDS: ENOXAPARIN 40 MG/0.4 ML (LOVENOX) SYR SC SCH (18:32)
[2017-08-06] MEDS: DILTIAZEM 240 MG (CARDIZEM CD) CAP PO SCH (20:16)
[2017-08-06] MEDS: risperiDONE 0.25 MG (RisperDAL) TAB PO SCH (20:17)
[2017-08-07] VITALS (18 sets, daily range): BP systolic 83–160; BP diastolic 43–83
[2017-08-07] MEDS: aCETylcysteine 20% (MUCOMYST) 30ML SOLN VIAL INH SCH ×6 (02:35→22:30)
[2017-08-07] MEDS: RT-ALBUTEROL/IPRATROPIUM 3 ML (DUONEB) VIAL INH SCH ×6 (02:35→22:30)
[2017-08-07 05:42] LABS: BASOPHILS % (AUTO) 0 % (0-10); EOSINOPHILS % (AUTO) 0 % (0-10); HEMATOCRIT 27 % (40-54); HEMOGLOBIN 8.1 G/DL (13.3-17.7); LYMPHOCYTES # (AUTO) 0.7 X 10^3 (1.0-4.0); LYMPHOCYTES % (AUTO) 9 % (12-44); MEAN CORPUSCULAR HEMOGLOBIN 27 PG (25-34); MEAN CORPUSCULAR HGB CONC 30 G/DL (32-36); MEAN CORPUSCULAR VOLUME 91 FL (80-99); MEAN PLATELET VOLUME 9.7 FL (7.4-10.4); MONOCYTES # (AUTO) 0.6 X 10^3 (0.0-1.0); MONOCYTES % (AUTO) 8 % (0-12); NEUTROPHILS # (AUTO) 6.4 X 10^3 (1.8-7.8); NEUTROPHILS % (AUTO) 83 % (42-75); PLATELET COUNT 112 10^3/uL (130-400); RED BLOOD COUNT 2.97 10^6/uL (4.35-5.85); RED CELL DISTRIBUTION WIDTH 16.3 % (10.0-14.5); WHITE BLOOD COUNT 7.7 10^3/uL (4.3-11.0)
[2017-08-07] MEDS: inSUlin (REGULAR) HUMAN 1 UNIT/0.01 ML (CHARGE PER UNIT) SC SCH ×4 (06:04→20:39)
[2017-08-07 06:10] LABS: BUN/CREATININE RATIO 54; CALCIUM 9.2 MG/DL (8.5-10.1); CARBON DIOXIDE 37 MMOL/L (21-32); CHLORIDE 95 MMOL/L (98-107); CREATININE SERUM 0.81 MG/DL (0.60-1.30); GFR ESTIMATED > 60; GLUCOSE 68 MG/DL (70-105); MAGNESIUM 1.9 MG/DL (1.8-2.4); PHOSPHORUS 3.3 MG/DL (2.3-4.7); SODIUM 142 MMOL/L (135-145)
[2017-08-07] MEDS: PANTOPRAZOLE 40 MG (PROTONIX) TAB PO SCH (06:11)
[2017-08-07] MEDS: HYDROcodone/APAP 10 MG/325 MG (LORTAB) TAB PO PRN ×2 (06:22→20:36)
[2017-08-07] MEDS: RT-BUDESONIDE NEBS 0.5 MG/2ML (PULMICORT) AMP INH SCH ×2 (07:19→18:52)
[2017-08-07] MEDS: morphine INJ 4 MG/ML 1 ML (VIAL/SYRINGE) IVP PRN (07:43)
[2017-08-07] MEDS ORDERED: KETOROLAC 30 MG/ML VIAL IVP NR (08:30)
--- NOTE | 2017-08-07 08:36 | Progress Note-Hospitalist ---
Subjective HPI/CC On Admission Date Seen by Provider: Aug 07, 2017 Time Seen by Provider: 08:00 Mr. 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 Initially sputum was clear but then it became colored. He increase his prednisone from 20 mg to 40 mg daily and presented to my office on the . There he did have significant wheezing but was maintaining saturations on room air 95-96 percent. He did not wish to be admitted to the hospital at that time so he was discharged on Levaquin. He has a past history of Pseudomonas that was pansensitive cultured from a venous insufficiency ulcer but also required hyperbaric oxygen therapy on his right lower extremity. It has been improving through wound care but at one point was quite large and he still has a significant area of skin breakdown although he does have pink granulation tissue no increase in pain and they have been pleased as of late with wound healing. He called my office the afternoon of the reporting the onset of severe left-sided chest pain worse with breathing worse with cough that actually followed a paroxysm of cough. It was too painful to take deep breaths and he was feeling more short of breath. Sputum culture obtained as an outpatient was growing Pseudomonas on admission but sensitivities were not yet available. He is at high risk for progression to overt respiratory failure and was admitted to the intensive care unit for close monitoring and further therapeutics. Past medical history is most significant for Churg-Nils tenting as pulmonary hemorrhage in 2001. Other than prednisone his only other medication is IVIG. He has a history of disseminated histoplasmosis for which she has been on voriconazole for the past several years continues to have elevated androgen levels and urine and blood. They have been controlled however with chronic suppressive voriconazole therapy. He follows at for his pulmonary and infectious disease issues. 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 He has been on Forteo as of late but I did have concerns over possible cough related rib fracture considering this history. Subjective/Events-last exam patient slept from 11 p.m. to 5 a.m. but was awoken with reported lightening bolt-like pain in the upper thoracic area. It is not been preceded by cough and woke him from sleep. Been doing relatively well up until then. He had a heavy physical therapy session according to his around 1 p.m. and wasn't able to perform second session around 330 due to fatigue. Cough minimally productive no purulence noted. No pain radiating and arms centered around the back and he is had this pain before. He does have a previous history of upper thoracic compression fracture. Movement aggravates it. He received morphine and ties amidine by mouth without any significant improvement in symptoms. Upon my arrival he was sleeping without evidence for obstructive breathing with stable vital signs and O2 saturation of 94 percent on high flow Vapotherm. Objective Exam Vital Signs Vital Signs Date Time Temp Pulse Resp B/P (MAP) Pulse Ox O2 Delivery O2 Flow Rate FiO2 08/01/17 00:00 98.8 87 27 147/74 (98) 96 NIV Bilevel 08/01/17 00:32 25.00 08/01/17 06:23 100 Capillary Refill : Less Than 3 Seconds General Appearance: Anxious, Chronically ill, Moderate Distress (when awake appeared to be sleeping comfortably before arousal) Respiratory: Other (cattered rhonchi throughout without wheezing respiratory rate 22 mildly labored) Cardiovascular: Regular Rate, Rhythm, No Edema, No Gallop, No JVD, No Murmur, Normal Peripheral Pulses Gastrointestinal: Normal Bowel Sounds, No Organomegaly, No Pulsatile Mass, Non Tender, Soft Results/Procedures Lab Laboratory Tests 08/07/17 05:35 Assessment/Plan Assessment and Plan Assess & Plan/Chief Complaint 1. severe back pain without antecedent coughing or any form of trauma nooverload of tspine with recent nesemia hopefully just muscle spasm aggravated by using muscles he is not been used to using. As his renal function is improving we'll try 30 mg of ketorolac and give 2 g of magnesium IV currently his pain is likely aggravating his respiratory status chest x-ray pending.. 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 glucose control improving with decrease in Solu-Medrol no hypoglycemia noted. 4. Left chest wall pain favor muscle spasm as it is a little more diffuse than one would expect for occult rib fracture as well as minimal improvement on morphine will add IV Norflex patient warned about sedation continue O2 sat monitoring continuous. 5. Slowly increasing BUN and creatinine compatible with relative intravascular volume depletion improving likely due to improved oxygenation status. Complex medical management. 6. Epigastric pain with decreasing white count doubt underlying infectious etiology. We'll continue proton pump inhibitor therapy. we'll check lipase level to rule out pancreatitis.. 7. History of osteoporosis on Forteo will resume injections. 8. Epigastric pain compatible with an abdominal wall muscle etiology. There is no evidence for hematoma formation and this is likely related to deconditioning from his inactivity. Lipase level was normal his appetite has been good and other than hypomagnesemia which is being replaced all labs of been improved. 9. Patient had heard that receiving a second flu shot may be of benefit this season there is no downside of this other than the fact that there may be lack of coverage we'll go ahead and revaccinate considering his immunocompromised status and the fact that his exposure risk is still high. 10. While the patient is still positive for Pseudomonas on bronchial washings he has no evidence for infection and will likely have long-term colonization hold antibiotics for now defer to Dr. Fernandez. ERIC ADAM MD Aug 07, 2017 08:36
[2017-08-07] MEDS: MAGNESIUM 1 GM/100 ML IVPB 100 ML IV SCH ×3 (08:43→10:37)
--- NOTE | 2017-08-07 09:49 | Physical Therapy Daily Note ---
PT Daily Note-Current Subjective Patient reports he is in 10/10 back pain with meds issued. Pain Numeric Pain Scale: 10-Worst Possible Pain Location: Medial, Upper, Lower Location Body Site: Back Pain Description: Acute Appearance patient appears distressed due to back pain and labored breathing Mental Status Patient Orientation: Normal For Age Attachments: Oxygen, Garcia Catheter, IV Transfers Functional [place] Measure 0=Not Assessed/NA 4=Minimal Assistance 1=Total Assistance 5=Supervision or Setup 2=Maximal Assistance 6=Modified [place] 3=Moderate Assistance 7=Complete IndependenceIRFPAI Quality Coding Scale 6 Independent with activity with or without an assistive device 5 Patient requires set up or clean up by helper. Patient completes activity by themselves 4 Supervision or touching assist (CGA). Mcintyre provide cues , steadying assist 3 The helper provides less than half the effort to complete the activity 2 The helper provides more than half the effort to complete the activity 1 Dependent. The helper does all the effort to complete an activity 7 Patient refused to complete or attempt activity 9 The patient did not perform the activity before the current illness or injury 88 Not attempted due to Medical conditions or safety concerns Transfers (B, C, W/C) (FIM): 2 Scootin Rollin Patient repositioned to sidelying right with pillow placement behind back and between LE's Weight Bearing Right Lower Extremity: Right Full Weight Bearing Left Lower Extremity: Left Full Weight Bearing Assessment Patient ceased treatment after repositioning. Patient appears to have a decline in status with noticeable labored breathing on vapotherm 65% and refusing PT due to back pain. RN is in room and aware. PT and spouse discussed POC and patient's decrease in tolerance at this time. PT director notified as well. PT Short Term Goals Short Term Goals Transfers (B,C,W/C) (FIM): 3 PT Alf Goals Alf Goals PT Professor Of Physics Goals Time Frame: Sep 12, 2017 Transfers (B,C,W/C) (FIM): 6 Gait (FIM): 6 Gait distance (FIM): 3=150 ft Distance: 200' Gait Level of Assist: 6 Gait Assistive Device: FWW Stairs (FIM): 6 # of Steps: 12 Stairs Level Of Assist: 6 PT Plan Treatment/Plan Treatment Plan: Continue Plan of Care Treatment Plan: Bed Mobility, Education, Functional Activity [place], Functional Strength, Gait, Safety, Therapeutic Exercise, Transfers Treatment Duration: Sep 12, 2017 Frequency: 11 times per week Estimated Hrs Per Day: 1 hour per day (or PRN) Patient and/or Family Agrees t: Yes Time/GCodes Time In: 850 Time Out: 906 Total Billed Treatment Time: 15 Total Billed Treatment 1 visit FA 15 min LYLA BLOUNT PT Aug 07, 2017 09:49
[2017-08-07] MEDS: BUMETANIDE 1 MG (BUMEX) TAB PO SCH (10:17)
[2017-08-07] MEDS: LOSARTAN 25 MG (COZAAR) TAB PO SCH (10:18)
[2017-08-07] MEDS: methylPREDNISolone 40 MG/ML (Solu-MEDROL) VIAL IV SCH ×2 (10:18→20:37)
[2017-08-07] MEDS: POLYETHYLENE GLYCOL 17 GM (MIRALAX) PACK PO SCH ×2 (10:18→20:38)
[2017-08-07] MEDS: inSUlin DETERMIR 1 UNIT/0.01 ML (LEVEMIR) CHARGE PER UNIT SQ SCH ×2 (10:20→20:39)
--- NOTE | 2017-08-07 10:36 | Diagnostic Imaging Report ---
INDICATION: Pneumonia EXAM: Single view of the chest. COMPARISON: 08/06/2017 FINDINGS: A single view of the chest demonstrates persistent but decreasing infiltrates in both bases. There is no pneumothorax. The PICC line is stable. The heart remains prominent. Trace effusions are present. IMPRESSION: Persistent but decreasing basilar infiltrates. Dictated by: Dictated on workstation # [id number]
[2017-08-07] MEDS: KCL 20 MEQ TAB (K-DUR) PO SCH (10:37)
[2017-08-07] MEDS: POTASSIUM CL 10MEQ/50ML IVPB 50 ML IV SCH (10:37)
[2017-08-07] MEDS: SIMETHICONE 80 MG (MYLICON) CHEW PO SCH ×4 (10:38→20:37)
--- NOTE | 2017-08-07 12:39 | Pulmonary Progress Note ---
Subjective Time Seen by Provider: 13:08 Subjective/Events-last exam Pt appears worse today with increased WOB. He is currently on BiPAP using accessory muscle use. Exam Exam Vital Signs Date Time Temp Pulse Resp B/P (MAP) Pulse Ox O2 Delivery O2 Flow Rate FiO2 08/07/17 12:00 98.1 82 20 125/56 (79) 96 Vapotherm 45.00 25.00 08/07/17 10:16 91 27 97 100.00 08/07/17 08:00 97.6 83 24 126/60 (82) 94 Vapotherm 45.00 25.00 08/07/17 07:55 93 NIV Bilevel 25.00 08/07/17 07:20 22 30.00 08/07/17 05:27 82 143/65 (91) 08/07/17 04:11 98.4 82 20 143/65 (91) 91 Vapotherm 45.00 25.00 08/07/17 03:41 71 18 91 30.00 08/07/17 02:36 17 30.00 08/07/17 01:00 77 08/07/17 00:50 97.8 82 20 160/66 (97) 94 Vapotherm 45.00 25.00 08/06/17 23:55 87 18 90 30.00 08/06/17 23:04 93 Vapotherm 25.00 45 08/06/17 21:13 86 133/63 (86) 08/06/17 20:11 Vapotherm 25.00 45 08/06/17 20:02 Vapotherm 08/06/17 19:57 98.4 100 20 175/82 (113) 94 Vapotherm 45.00 25.00 08/06/17 19:47 96 Vapotherm 25.00 45 08/06/17 19:47 90 96 45 08/06/17 19:00 90 08/06/17 16:22 98.4 95 18 164/75 (104) 96 Vapotherm 45.00 25.00 08/06/17 15:42 94 Vapotherm 25.00 45 08/06/17 13:00 91 I & O 08/07/17 07:00 Intake Total 1334 ml Output Total 1925 ml Balance -591 ml General Appearance: Anxious, Chronically ill, Moderate Distress HEENT: PERRL/EOMI, Normal ENT Inspection Neck: Full Range of Motion, Normal Inspection, Non Tender, Supple, Carotid Bruit Respiratory: Accessory Muscle Use, Respiratory Distress Cardiovascular: Regular Rate, Rhythm, No Murmur Capillary Refill: Less Than 3 Seconds Gastrointestinal: normal bowel sounds, soft, no organomegaly, no pulsatile mass Extremity: Other (since I last saw the patient on Friday there is been significant decrease in extremity edema) Neurologic/Psychiatric: Alert, Oriented x3, No Motor/Sensory Deficits Skin: Normal Color, Warm/Dry, Pallor Lymphatic: No Adenopathy Results Lab Laboratory Tests 08/06/17 04:15 08/07/17 05:35 Assessment/Plan Assessment/Plan Acute respiratory failure -SVNs --Change SVNs to Q2 - Solumedrol 40 IV Q 12 - decrease to 20 Q12 -Pt is requiring BiPAP currently will see how he does off BiPAP today Acute renal failure -Monitor Anemia - montior Anxiety -Risperdal , morphine, Ativan Back spasms -hx Churg Kunal -Pt follows with [facility]/infectious disease Chronic elevation of right diaphragm with atelectasis pneumonia with Pseudomonas -Cefepime - D/C'd Immunosuppression hx Debility -PT/OT -hx of stable BETHANY nodule per CT scan Advance activity. UP to chair BID. will transfer pt back to ICU secondary to worsening respiratory distress. 233 Clinical Quality Measures DVT/VTE Risk/Contraindication: Risk Factor Score Per Nursin RFS Level Per Nursing on Admit: 3=High MEDINA VILLEGAS DO Aug 07, 2017 12:39
--- NOTE | 2017-08-07 12:53 | Physical Therapy Progress Note ---
Therapy Progress Note Decline in pulmonary status and transferred to ICU. LYLA BLOUNT PT Aug 07, 2017 12:53
--- NOTE | 2017-08-07 12:56 | Occ Therapy Progress Note ---
Therapy Progress Note Pt. transferred back to ICU due to change in medical status. Please send new orders when pt. appropriate. 1300 ALISSA SERRA OT Aug 07, 2017 12:56
[2017-08-07 13:35] LABS: ABG BASE EXCESS 12.6 MMOL/L (-2.5-2.5); ABG OXYGEN SATURATION 100 % (94-100); ABG PCO2 60 MMHG (35-45); ABG PH 7.41 (7.37-7.43); ABG PO2 190 MMHG (79-93); ABG TCO2 39.9 MMOL/L (21.0-31.0); ALLENS TEST YES-POS
[2017-08-07 13:36] LABS: INSPIRED O2 100% BIPAP; PATIENT TEMP 97.1; VENTILATOR NO
[2017-08-07] MEDS: TERIPARATIDE 600 MCG/2.4 ML (FORTEO) SYR SQ SCH (13:45)
[2017-08-07] MEDS: VORICONAZOLE 200 MG TAB (VFEND) NON-FORMULARY PO SCH ×2 (13:45→20:39)
[2017-08-07] MEDS: SENNOSIDES 8.6 MG (SENOKOT) TAB PO PRN (13:45)
[2017-08-07] MEDS ORDERED: KETOROLAC 30 MG/ML VIAL IVP PRN (14:30)
[2017-08-07] MEDS ORDERED: BISACODYL 10 MG SUPP (DULCOLAX) PR PRN (15:30)
[2017-08-07] MEDS ORDERED: TROUGH ORDER-PHARMACY XX NR (19:00)
[2017-08-07] MEDS: ENOXAPARIN 40 MG/0.4 ML (LOVENOX) SYR SC SCH (19:41)
[2017-08-07] MEDS: risperiDONE 0.25 MG (RisperDAL) TAB PO SCH (20:37)
[2017-08-07] MEDS: DILTIAZEM 240 MG (CARDIZEM CD) CAP PO SCH (20:38)
[2017-08-08] VITALS (14 sets, daily range): BP systolic 94–156; BP diastolic 49–84
[2017-08-08] MEDS: HYDROcodone/APAP 10 MG/325 MG (LORTAB) TAB PO PRN ×4 (00:28→14:26)
[2017-08-08] MEDS: aCETylcysteine 20% (MUCOMYST) 30ML SOLN VIAL INH SCH ×3 (02:25→09:47)
[2017-08-08] MEDS: RT-ALBUTEROL/IPRATROPIUM 3 ML (DUONEB) VIAL INH SCH ×4 (02:25→13:09)
[2017-08-08] MEDS: PANTOPRAZOLE 40 MG (PROTONIX) TAB PO SCH (04:45)
[2017-08-08 05:11] LABS: BASOPHILS % (AUTO) 0 % (0-10); EOSINOPHILS % (AUTO) 0 % (0-10); HEMATOCRIT 26 % (40-54); HEMOGLOBIN 7.6 G/DL (13.3-17.7); LYMPHOCYTES # (AUTO) 0.2 X 10^3 (1.0-4.0); LYMPHOCYTES % (AUTO) 3 % (12-44); MEAN CORPUSCULAR HEMOGLOBIN 27 PG (25-34); MEAN CORPUSCULAR HGB CONC 30 G/DL (32-36); MEAN CORPUSCULAR VOLUME 92 FL (80-99); MEAN PLATELET VOLUME 10.8 FL (7.4-10.4); MONOCYTES # (AUTO) 0.2 X 10^3 (0.0-1.0); MONOCYTES % (AUTO) 3 % (0-12); NEUTROPHILS # (AUTO) 6.6 X 10^3 (1.8-7.8); NEUTROPHILS % (AUTO) 94 % (42-75); PLATELET COUNT 101 10^3/uL (130-400); RED BLOOD COUNT 2.79 10^6/uL (4.35-5.85); RED CELL DISTRIBUTION WIDTH 16.3 % (10.0-14.5); WHITE BLOOD COUNT 7.1 10^3/uL (4.3-11.0)
[2017-08-08 05:11] LABS: ABG BASE EXCESS 9.7 MMOL/L (-2.5-2.5); ABG OXYGEN SATURATION 100 % (94-100); ABG PCO2 60 MMHG (35-45); ABG PH 7.38 (7.37-7.43); ABG PO2 189 MMHG (79-93); ABG TCO2 37.1 MMOL/L (21.0-31.0)
[2017-08-08 05:12] LABS: ALLENS TEST YES-POS; INSPIRED O2 75%; PATIENT TEMP 97.4; VENTILATOR NO
--- NOTE | 2017-08-08 05:29 | Pulmonary Progress Note ---
Subjective Time Seen by Provider: 05:30 Subjective/Events-last exam Pt has increased productive cough. Exam Exam Vital Signs Date Time Temp Pulse Resp B/P (MAP) Pulse Ox O2 Delivery O2 Flow Rate FiO2 08/08/17 04:00 66 18 95/50 (65) 100 NIV Bilevel 75.00 08/08/17 03:43 79 21 100 75.00 08/08/17 03:00 66 18 94/49 (64) 100 NIV Bilevel 75.00 08/08/17 02:10 81 28 100 75.00 08/08/17 02:00 81 26 97/73 (81) 100 NIV Bilevel 75.00 08/08/17 01:00 71 08/08/17 01:00 72 18 115/77 (90) 100 NIV Bilevel 75.00 08/08/17 00:01 73 21 99 75.00 08/08/17 00:00 NIV Bilevel 75 08/08/17 00:00 97.9 77 17 117/65 (82) 100 NIV Bilevel 75.00 08/07/17 23:00 85 32 119/65 (83) 100 NIV Bilevel 75.00 08/07/17 22:31 93 23 97 75.00 08/07/17 22:00 90 27 113/74 (87) 95 NIV Bilevel 75.00 08/07/17 21:00 90 27 141/73 (95) 94 Vapotherm 75.00 15.00 08/07/17 21:00 Vapotherm 15.00 75 08/07/17 20:30 87 24 96 Vapotherm 75.00 15.00 08/07/17 20:00 98.0 93 28 147/76 (99) 93 NIV Bilevel 75.00 08/07/17 19:53 97 Vapotherm 15.00 75 08/07/17 19:00 77 15 115/58 (77) 100 NIV Bilevel 75.00 08/07/17 19:00 77 08/07/17 18:00 80 14 100 75.00 08/07/17 18:00 82 9 126/67 (86) 98 NIV Bilevel 60.00 08/07/17 17:00 76 19 131/71 (91) 100 NIV Bilevel 60.00 08/07/17 16:34 81 17 100 75.00 08/07/17 16:00 96.8 08/07/17 16:00 70 17 126/67 (86) 100 NIV Bilevel 60.00 08/07/17 15:20 106/60 (75) 08/07/17 15:00 74 19 83/43 (56) 99 NIV Bilevel 60.00 08/07/17 14:22 78 22 100 100.00 08/07/17 14:00 81 20 132/67 (88) 100 NIV Bilevel 100.00 08/07/17 13:00 76 18 151/83 (105) 95 NIV Bilevel 100.00 08/07/17 13:00 73 08/07/17 12:05 97.8 79 18 144/76 (98) 100 NIV Bilevel 100.00 08/07/17 12:00 NIV Bilevel 100 08/07/17 12:00 98.1 82 20 125/56 (79) 96 Vapotherm 45.00 25.00 08/07/17 10:16 91 27 97 100.00 08/07/17 09:00 NIV Bilevel 08/07/17 08:00 97.6 83 24 126/60 (82) 94 Vapotherm 45.00 25.00 08/07/17 07:55 93 NIV Bilevel 25.00 08/07/17 07:20 22 30.00 08/07/17 05:27 82 143/65 (91) I & O 08/08/17 07:00 Intake Total 700 ml Output Total 875 ml Balance -175 ml General Appearance: Anxious, Chronically ill, Moderate Distress HEENT: PERRL/EOMI, Normal ENT Inspection Neck: Full Range of Motion, Normal Inspection, Non Tender, Supple, Carotid Bruit Respiratory: Accessory Muscle Use, Respiratory Distress Cardiovascular: Regular Rate, Rhythm, No Murmur Capillary Refill: Less Than 3 Seconds Gastrointestinal: normal bowel sounds, soft, no organomegaly, no pulsatile mass Extremity: Other (since I last saw the patient on Friday there is been significant decrease in extremity edema) Neurologic/Psychiatric: Alert, Oriented x3, No Motor/Sensory Deficits Skin: Normal Color, Warm/Dry, Pallor Lymphatic: No Adenopathy Results Lab Laboratory Tests 08/07/17 05:35 08/08/17 04:44 Assessment/Plan Assessment/Plan Acute respiratory failure -SVNs --Change SVNs to Q2 - Solumedrol 40 IV Q 12 - decrease to 20 Q12 -Pt is requiring BiPAP currently will see how he does off BiPAP today Acute renal failure -Monitor Anemia - montior Anxiety -Risperdal , morphine, Ativan Back spasms -hx Churg Kunal -Pt follows with [facility]/infectious disease Chronic elevation of right diaphragm with atelectasis pneumonia with Pseudomonas -CXR appears worse -start Zosyn Immunosuppression hx Debility -PT/OT -hx of stable BETHANY nodule per CT scan Advance activity. UP to chair BID. will transfer pt back to ICU secondary to worsening respiratory distress. 233 Clinical Quality Measures DVT/VTE Risk/Contraindication: Risk Factor Score Per Nursin RFS Level Per Nursing on Admit: 3=High MEDINA VILLEGAS DO Aug 08, 2017 05:29
[2017-08-08 05:34] LABS: BUN/CREATININE RATIO 58; CALCIUM 8.4 MG/DL (8.5-10.1); CARBON DIOXIDE 33 MMOL/L (21-32); CHLORIDE 95 MMOL/L (98-107); CREATININE SERUM 0.86 MG/DL (0.60-1.30); GFR ESTIMATED > 60; GLUCOSE 235 MG/DL (70-105); MAGNESIUM 2.1 MG/DL (1.8-2.4); PHOSPHORUS 4.5 MG/DL (2.3-4.7); POTASSIUM 4.2 MMOL/L (3.6-5.0); SODIUM 141 MMOL/L (135-145)
--- NOTE | 2017-08-08 05:46 | Diagnostic Imaging Report ---
Indication: Shortness of breath Portable chest 5:06 AM There is atelectasis or infiltrate at both lung bases. Left upper extremity PICC line tip is at the innominate confluence. Impression: Bilateral basilar infiltrate and/or atelectasis. The opacity at the right lung base is increased compared to the previous day. Dictated by: Dictated on workstation # [id number]
[2017-08-08] MEDS: POTASSIUM CL 10MEQ/50ML IVPB 50 ML IV SCH (05:47)
[2017-08-08] MEDS: KCL 20 MEQ TAB (K-DUR) PO SCH (05:48)
[2017-08-08] MEDS: MAGNESIUM 1 GM/100 ML IVPB 100 ML IV SCH (05:48)
[2017-08-08] MEDS: inSUlin (REGULAR) HUMAN 1 UNIT/0.01 ML (CHARGE PER UNIT) SC SCH ×2 (05:59→11:35)
[2017-08-08] MEDS ORDERED: MAGNESIUM 1 GM/100 ML IVPB 100 ML IV SCH (06:00)
[2017-08-08] MEDS ORDERED: POTASSIUM CL 10MEQ/50ML IVPB 50 ML IV SCH (06:00)
[2017-08-08] MEDS ORDERED: KCL 20 MEQ TAB (K-DUR) PO SCH (06:00)
[2017-08-08] MEDS: RT-BUDESONIDE NEBS 0.5 MG/2ML (PULMICORT) AMP INH SCH (06:22)
[2017-08-08] MEDS ORDERED: PIPERACILLIN SODIUM/TAZOBACTAM 4.5 GM in NS (IVPB) 100 ML IV NR (07:45)
[2017-08-08] MEDS: LOSARTAN 25 MG (COZAAR) TAB PO SCH (08:55)
[2017-08-08] MEDS: BUMETANIDE 1 MG (BUMEX) TAB PO SCH (08:55)
[2017-08-08] MEDS: SIMETHICONE 80 MG (MYLICON) CHEW PO SCH ×2 (08:55→13:07)
[2017-08-08] MEDS: methylPREDNISolone 40 MG/ML (Solu-MEDROL) VIAL IV SCH (08:56)
[2017-08-08] MEDS: VORICONAZOLE 200 MG TAB (VFEND) NON-FORMULARY PO SCH (08:56)
[2017-08-08] MEDS: POLYETHYLENE GLYCOL 17 GM (MIRALAX) PACK PO SCH (08:57)
[2017-08-08] MEDS: inSUlin DETERMIR 1 UNIT/0.01 ML (LEVEMIR) CHARGE PER UNIT SQ SCH (08:57)
[2017-08-08] MEDS: TERIPARATIDE 600 MCG/2.4 ML (FORTEO) SYR SQ SCH (09:13)
--- NOTE | 2017-08-08 10:09 | Physical Therapy Progress Note ---
Therapy Progress Note Per Dr. Cox, patient will transfer to outside facility on this date due to decline in status. PT to dismiss from services at this time. LYLA BLOUNT PT Aug 08, 2017 10:09
--- NOTE | 2017-08-08 10:20 | Discharge Summary-Hospitalist ---
Diagnosis/Chief Complaint Date of Admission Jul 17, 2017 at 16:50 Date of Discharge Admission Diagnosis 1. Respiratory failure secondary to pseudomonas related bronchitis we'll initiate IV steroid therapy BiPAP therapy with supplemental oxygen and bronchodilator therapy. The case is been discussed with Dr. Fernandez who will be consulted. 2. Chest wall pain favor acute muscle spasm from coughing over rib fracture. 3. 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 4. History of osteoporosis the patient has been on Forteo for over 6 months will hold while in the hospital but resume on discharge. Discharge Diagnosis 1. Bibasilar pneumonia growing Pseudomonas with martinez sensitivity... 2. History of 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syndrome 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 glucose control improving with decrease in Solu-Medrol no hypoglycemia noted. 4. acute kidney injury secondary to dehydration 5. History of past disseminated histoplasmosiswhich the patient is been on chronic voriconazole therapy for the last year without evidence for recurrence and monitored by infectious disease at the [facility]. At this time histo antigen levels and voriconazole therapeutic levels are pending. 6. Epigastric pain with decreasing white count doubt underlying infectious etiology. We'll continue proton pump inhibitor therapy. we'll check lipase level to rule out pancreatitis.. 7. History of osteoporosis on Forteo will resume injections. 8. Epigastric pain compatible with an abdominal wall muscle etiology. There is no evidence for hematoma formation and this is likely related to deconditioning from his inactivity. Lipase level was normal his appetite has been good and other than hypomagnesemia which is being replaced all labs of been improved. 9. Patient had heard that receiving a second flu shot may be of benefit this season there is no downside of this other than the fact that there may be lack of coverage we'll go ahead and revaccinate considering his immunocompromised status and the fact that his exposure risk is still high. 10. While the patient is still positive for Pseudomonas on bronchial washings he has no evidence for infection and will likely have long-term colonization hold antibiotics for now defer to Dr. Fernandez. 11. New onset lower extremity paralysis with T11-T12 sensory level. 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 Assessment & Plan: Continue on Solumedrol Receives IVIG Follows with [facility] pulm and infectious disease On voriconazole (3) Diabetes mellitus Status: Chronic Assessment & Plan: Steroid induced on Sliding Scale Had blood sugar of 655 last night Improved this AM, trend (4) Essential (primary) hypertension Assessment & Plan: Well controlled (5) Chest wall pain Assessment & Plan: Continue home hydrocodone IV Morphine for breakthrough pain Also on Norflex (6) Debility Assessment & Plan: PT/OT consulted Discharge Summary Discharge Physical Examination Allergies: Coded Allergies: No Known Drug Allergies (Unverified , 01/15/11) Vitals & I&Os Vital Signs Date Time Temp Pulse Resp B/P (MAP) Pulse Ox O2 Delivery O2 Flow Rate FiO2 08/08/17 08:26 87 37 100 60.00 08/08/17 06:32 Vapotherm 08/08/17 06:22 70 08/08/17 06:00 127/84 (98) 08/08/17 04:00 97.4 Hospital Course Mr. Wilhelm is a 62-year-old white male with a past history of 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syndrome was admitted for institution on 18 July respiratory distress. Sputum cultures were positive for martinez sensitive pseudomonas which the patient originally received cefepime. He had a bay course it did ultimately resulting mechanical ventilation for roughly 1 week. He was extubated roughly 10 days ago but had required high-flow oxygen via Vapotherm with poor respiratory reserve since. He received 2 weeks of IV antibiotics for Pseudomonas and was followed by our motorcycle riding instructor Dr. Fernandez. He underwent bronchoscopy with BAL and lavage that also grew out Pseudomonas pansensitive. Fungal cultures were negative. He does have a past history of disseminated histoplasmosis and is been on voriconazole for the past year with persistent elevated antigen levels but no evidence for ongoing infection. 24 hours prior to his dischargehe noted the onset of rather severe back pain pointing to the midthoracic level. He did have neuropathic sounding with lightening bolt type sensation. His back pain actually improved with this morning upon my arrival he did not notify the nursing staff but told me that he was unable to move his legs since midnight nor could he feel them. 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 This morning he had flaccid paralysis of the lower extremitiesand a T11 to T12 sensory level. This morning Garcia had to be placed due to discomfort with 700 mL residual. The patient has a history ofosteoporosis due to long standing steroid use for which she has been on Forteo for roughly the past year and it continued to receive during this hospital stay. He has had kyphoplasty at several thoracic levels in the past as I recall. I have grave concerns aboutattempting to move the patient and facility where we do not have a neurologist or neurosurgical backup. At the time of this dictation in the process of attempting to arrange transferto [facility] for further investigation. Currently vital signs are stable with blood pressure in the 130/70 range heart rate in the 80 with the patient reporting no pain. His respiratory rate is in the mid 20s and he is not using sensory muscles respiration with O2 saturation on high flow Vapotherm 25 L and 70 percent in the upper 90s. His sputum did become purulent yesterday with repeat culture growing out pansensitive pseudomonas. Zosyn has been started per Dr. Fernandez. I doubt that his current paralysis is related to a flare of Churg- Nils syndrome and I'm more concerned about osteoporosis related burst fracture issue from coughing and spinal cord impingement. However I cannot rule out autoimmune-related neuropathy. He is going to require further imaging studies to help differentiate. Because of the potential unstable nature of her fracture and spinal cord impingement concern he is not a candidate for a long car ride to and I'm recommending that he go by air transport. He is well-known to [facility] and is followed by Dr. Putnam infectious disease as well as in the rheumatology Department. The patient in addition to prednisone has been on IVIG. He usually receives his treatments in 4 divided doses on 4 separate days. He only received 2 doses 1 week ago due to his marginal respiratory status with recent postextubation. Patientfelt that it leads to fatigue for several days before he starts to feel better. With paralysis issues new-onset last night he is receiving his third dose of IVIG this morning and will need one more round to complete this months dosing schedule. Labs (last 24 hrs) Laboratory Tests 08/07/17 11:11: Glucometer 159H 08/07/17 12:25: 08/07/17 13:26: Blood Gas Puncture Site RT BRACHIAL, Blood Gas Patient Temperature 97.1, Arterial Blood pH 7.41, Arterial Blood Partial Pressure CO2 60H, Arterial Blood Partial Pressure O2 190H, Arterial Blood HCO3 38H, Arterial Blood Total CO2 39.9H, Arterial Blood Oxygen Saturation 100, Arterial Blood Base Excess 12.6H, Jamil Test YES-POS, Blood Gas Ventilator Setting NO, Blood Gas Inspired Oxygen 100% BIPAP 08/07/17 13:43: Glucometer 122H 08/07/17 15:56: Glucometer 125H 08/07/17 20:36: Glucometer 141H 08/07/17 20:40: 08/08/17 04:44: White Blood Count 7.1, Red Blood Count 2.79L, Hemoglobin 7.6L, Hematocrit 26L, Mean Corpuscular Volume 92, Mean Corpuscular Hemoglobin 27, Mean Corpuscular Hemoglobin Concent 30L, Red Cell Distribution Width 16.3H, Platelet Count 101L, Mean Platelet Volume 10.8H, Neutrophils (%) (Auto) 94H, Lymphocytes (%) (Auto) 3L, Monocytes (%) (Auto) 3, Eosinophils (%) (Auto) 0, Basophils (%) (Auto) 0, Neutrophils # (Auto) 6.6, Lymphocytes # (Auto) 0.2L, Monocytes # (Auto) 0.2, Eosinophils # (Auto) 0.0, Basophils # (Auto) 0.0, Sodium Level 141, Potassium Level 4.2, Chloride Level 95L, Carbon Dioxide Level 33H, Anion Gap 13, Blood Urea Nitrogen 50H, Creatinine 0.86, Estimat Glomerular Filtration Rate > 60, BUN /Creatinine Ratio 58, Glucose Level 235H, Calcium Level 8.4L, Phosphorus Level 4.5, Magnesium Level 2.1, B-Type Natriuretic Peptide 92.6 08/08/17 04:58: Blood Gas Puncture Site RIGHT RADIAL, Blood Gas Patient Temperature 97.4, Arterial Blood pH 7.38, Arterial Blood Partial Pressure CO2 60H, Arterial Blood Partial Pressure O2 189H, Arterial Blood HCO3 35H, Arterial Blood Total CO2 37.1H, Arterial Blood Oxygen Saturation 100, Arterial Blood Base Excess 9.7H, Jamil Test YES-POS, Blood Gas Ventilator Setting NO, Blood Gas Inspired Oxygen 75% Microbiology 08/04/17 Gram Stain - Final, Complete 08/04/17 Sputum Culture - Final, Complete Pseudomonas aeruginosa Pending Labs Laboratory Tests 08/08/17 04:44: White Blood Count 7.1, Red Blood Count 2.79, Hemoglobin 7.6, Hematocrit 26, Mean Corpuscular Volume 92, Mean Corpuscular Hemoglobin 27, Mean Corpuscular Hemoglobin Concent 30, Red Cell Distribution Width 16.3, Platelet Count 101, Mean Platelet Volume 10.8, Neutrophils (%) (Auto) 94, Lymphocytes (%) (Auto) 3, Monocytes (%) (Auto) 3, Eosinophils (%) (Auto) 0, Basophils (%) (Auto) 0, Neutrophils # (Auto) 6.6, Lymphocytes # (Auto) 0.2, Monocytes # (Auto) 0.2, Eosinophils # (Auto) 0.0, Basophils # (Auto) 0.0, Sodium Level 141, Potassium Level 4.2, Chloride Level 95, Carbon Dioxide Level 33, Anion Gap 13, Blood Urea Nitrogen 50, Creatinine 0.86, Estimat Glomerular Filtration Rate > 60, BUN/ Creatinine Ratio 58, Glucose Level 235, Calcium Level 8.4, Phosphorus Level 4.5 , Magnesium Level 2.1, B-Type Natriuretic Peptide 92.6 08/08/17 04:58: Blood Gas Puncture Site RIGHT RADIAL, Blood Gas Patient Temperature 97.4, Arterial Blood pH 7.38, Arterial Blood Partial Pressure CO2 60, Arterial Blood Partial Pressure O2 189, Arterial Blood HCO3 35, Arterial Blood Total CO2 37.1, Arterial Blood Oxygen Saturation 100, Arterial Blood Base Excess 9.7, Jamil Test YES-POS, Blood Gas Ventilator Setting NO, Blood Gas Inspired Oxygen 75% Discharge Home Medications: Active Scripts Active Reported Vitamin D3 (Cholecalciferol (Vitamin D3)) 1,000 Unit Capsule 1,000 Unit PO BID Daily Multiple Vitamin (Multivitamin) 1 Each Tablet 1 Tab PO DAILY Senokot (Sennosides) 8.6 Mg Tablet 8.6 Mg PO HS PRN Dakin's (Sodium Hypochlorite) 473 Ml Solution TOP BID PRN Acetaminophen Extra Strength (Acetaminophen) 500 Mg Tablet 500 Mg PO Q4H PRN Albuterol Sulfate 2.5 Mg/3 Ml Vial.neb 2.5 Mg NEB QID PRN Incruse Ellipta (Umeclidinium [place]) 62.5 Mcg Blst.w.dev 1 Puff IH DAILY Combivent Respimat Inhal [place] (Albuterol/Ipratropium) 4 Gm Aero 1 Puff IH QID PRN Androderm (Testosterone) 1 Each Patch.td24 4 Mg TD DAILY Hydrocodon-Acetaminophn 10-325 (Hydrocodone/Acetaminophen) 1 Each Tablet 1 Tab PO Q4H PRN Losartan Potassium 25 Mg Tablet 25 Mg PO DAILY Prednisone 20 Mg Tab 40 Mg PO DAILY TAKES 2 (20MG) TABLETS Diltiazem ER (Diltiazem HCl) 180 Mg Capsule.er 180 Mg PO HS Levaquin (Levofloxacin) 500 Mg Tablet 500 Mg PO DAILY 7 Days 7 DAY SUPPLY FILLED 18 Symbicort 160-4.5 Mcg Inhaler (Budesonide/Formoterol Fumarate) 10.2 Gm Hfa.aer.ad 2 Puff IH BID Vitamin B Complex 1 Each Capsule 1 Cap PO DAILY Calcium (Calcium Carbonate) 500 Mg Tab.chew 1,000 Mg PO DAILY Forteo (Teriparatide) 600 Mcg/2.4 Ml Syr 600 Mcg SQ DAILY Bumetanide 2 Mg Tablet 2 Mg PO DAILY PRN Potassium Chloride 8 Meq Tablet.er 8 Meq PO DAILY PRN Claritin (Loratadine) 10 Mg Tablet 10 Mg PO DAILY PRN Voriconazole 200 Mg Tablet 200 Mg PO BID Ambien (Zolpidem Tartrate) 5 Mg Tablet 5 Mg PO HS PRN [Ivig] MON - TH EVERY 3 WEEKS Pantoprazole Sodium 40 Mg Tablet.dr 40 Mg PO DAILY Instructions to patient/family Please see electronic discharge instructions given to patient. Clinical Quality Measures DVT/VTE Risk/Contraindication: Risk Factor Score Per Nursin RFS Level Per Nursing on Admit: 3=High Problem Qualifiers (1) CAP (community acquired pneumonia): Laterality: unspecified laterality Qualified Codes: J18.9 - Pneumonia, unspecified organism (2) Diabetes mellitus: Diabetes mellitus type: drug or chemical induced Diabetes mellitus complication status: with unspecified complications Diabetes mellitus manager export insulin use: unspecified manager export insulin use status Qualified Codes: E09.8 - Drug or chemical induced diabetes mellitus with unspecified complications ERIC COX MD Aug 08, 2017 10:20
[2017-08-08] MEDS ORDERED: ACETAMINOPHEN 500 MG TAB (TYLENOL) PO SCH (10:30)
[2017-08-08] MEDS ORDERED: D5W 500 ML IV SOLUTION 500 ML IV SCH (10:30)
[2017-08-08] MEDS ORDERED: GAMMAGARD IV SCH ×2 (11:00)
[2017-08-08] MEDS ORDERED: DEXAMETHASONE 4 MG/ML SDV (DECADRON) IV NR (11:30)
[2017-08-08] MEDS ORDERED: PIPERACILLIN SODIUM/TAZOBACTAM 4.5 GM in NS (IVPB) 100 ML IV SCH (14:00)
== END 2017-08-08 15:05 | disposition short-term general hospital (02) | DRG 208 ==
LOC: ICU 16:50 → 4TH 07-31 10:10 → ICU 08-01 14:58 → 4TH 08-06 11:20 → ICU 08-07 12:00
PROVIDERS: ADMIT Internal Medicine; ATTEND Internal Medicine
PROC: 5A1945Z Respiratory Ventilation, 24-96 Consecutive Hours (ICD-10-PCS; 2017-07-21)
PROC: 0B958ZX Drainage of Right Middle Lobe Bronchus, Via Natural or Artificial Opening Endoscopic, Diagnostic (ICD-10-PCS; principal; 2017-07-24)
PROC: 0B968ZX Drainage of Right Lower Lobe Bronchus, Via Natural or Artificial Opening Endoscopic, Diagnostic (ICD-10-PCS; principal; 2017-07-24)
PROC: 0BB58ZX Excision of Right Middle Lobe Bronchus, Via Natural or Artificial Opening Endoscopic, Diagnostic (ICD-10-PCS; principal; 2017-07-24)
PROC: 0BB68ZX Excision of Right Lower Lobe Bronchus, Via Natural or Artificial Opening Endoscopic, Diagnostic (ICD-10-PCS; principal; 2017-07-24)
DX: J96.00 Acute respiratory failure, unspecified whether with hypoxia or hypercapnia (principal); J15.1 Pneumonia due to Pseudomonas; M30.1 Polyarteritis with lung involvement [Churg-Strauss]; B39.3 Disseminated histoplasmosis capsulati; N17.9 Acute kidney failure, unspecified; J98.11 Atelectasis; E87.0 Hyperosmolality and hypernatremia; G82.20 Paraplegia, unspecified; I87.331 Chronic venous hypertension (idiopathic) with ulcer and inflammation of right lower extremity; L97.219 Non-pressure chronic ulcer of right calf with unspecified severity; M81.8 Other osteoporosis without current pathological fracture; E09.9 Drug or chemical induced diabetes mellitus without complications; T38.0X5A Adverse effect of glucocorticoids and synthetic analogues, initial encounter; D64.9 Anemia, unspecified; G47.33 Obstructive sleep apnea (adult) (pediatric); E66.9 Obesity, unspecified; I10 Essential (primary) hypertension; K21.9 Gastro-esophageal reflux disease without esophagitis; R07.89 Other chest pain; R53.81 Other malaise; F41.9 Anxiety disorder, unspecified; M62.830 Muscle spasm of back; T17.900A Unspecified foreign body in respiratory tract, part unspecified causing asphyxiation, initial encounter; R19.7 Diarrhea, unspecified; R10.13 Epigastric pain; E83.42 Hypomagnesemia; Z23 Encounter for immunization; M54.6 Pain in thoracic spine; E86.0 Dehydration; Z87.891 Personal history of nicotine dependence
CPT/HCPCS: 36415; 71045; 71046; 71250; 74018; 76770; 80048; 80053; 80299; 82805; 82962; 83690; 83735; 83880; 84100; 85007; 85014; 85018; 85025; 85027; 85610; 85730; 87070; 87081; 87101; 87116; 87186; 87205; 87385; 93005; 93970; 94002; 94003; 94640; 94660; 94664; 94760; 94799

== ENCOUNTER → 2017-10-27 | Outpatient (CLI) | payer OTHER ==
[~2017-10-27] MED LIST changes: +ACET-168 PO; +ALBU2.5V4 NEB; +AZIT250T12 PO; +BUDE10.2 IH; +CHOL10007 PO; +DILT180C82 PO; +IPRA4AER IH; +LEVO500T2 PO; +LOSA25TA21 PO; +MULT-35 PO; +SODI473S7 TOP; +UMEC62.5 IH
[2017-10-27 12:56] LABS: BUN/CREATININE RATIO 42; CALCIUM 9.5 MG/DL (8.5-10.1); CARBON DIOXIDE 33 MMOL/L (21-32); CHLORIDE 98 MMOL/L (98-107); CREATININE SERUM 0.52 MG/DL (0.60-1.30); GFR ESTIMATED > 60; GLUCOSE 90 MG/DL (70-105); POTASSIUM 4.3 MMOL/L (3.6-5.0); SODIUM 140 MMOL/L (135-145)
[2017-10-27 14:30] LABS: ALANINE AMINOTRANSFERASE 23 U/L (0-55); ALBUMIN 3.6 GM/DL (3.2-4.5); ALKALINE PHOSPHATASE 233 U/L (40-136); BILIRUBIN,TOTAL 0.3 MG/DL (0.1-1.0); TOTAL PROTEIN 6.5 GM/DL (6.4-8.2)
== END ==
LOC: HH 08:00
PROVIDERS: ATTEND Internal Medicine Infectious Disease
DX: B39.9 Histoplasmosis, unspecified (principal); Z79.2 Long term (current) use of antibiotics
CPT/HCPCS: 80053; 80299; 87385

== ENCOUNTER → 2017-11-03 | Outpatient (CLI) | payer OTHER ==
[2017-11-03 12:06] LABS: BASOPHILS % (AUTO) 0 % (0-10); EOSINOPHILS % (AUTO) 0 % (0-10); HEMATOCRIT 31 % (40-54); HEMOGLOBIN 9.2 G/DL (13.3-17.7); LYMPHOCYTES # (AUTO) 1.2 X 10^3 (1.0-4.0); LYMPHOCYTES % (AUTO) 12 % (12-44); MEAN CORPUSCULAR HEMOGLOBIN 28 PG (25-34); MEAN CORPUSCULAR HGB CONC 30 G/DL (32-36); MEAN CORPUSCULAR VOLUME 94 FL (80-99); MEAN PLATELET VOLUME 9.8 FL (7.4-10.4); MONOCYTES # (AUTO) 0.8 X 10^3 (0.0-1.0); MONOCYTES % (AUTO) 8 % (0-12); NEUTROPHILS # (AUTO) 7.5 X 10^3 (1.8-7.8); NEUTROPHILS % (AUTO) 80 % (42-75); PLATELET COUNT 225 10^3/uL (130-400); RED CELL DISTRIBUTION WIDTH 15.1 % (10.0-14.5); WHITE BLOOD COUNT 9.4 10^3/uL (4.3-11.0)
[2017-11-03 12:13] LABS: BILIRUBIN,URINE NEGATIVE (NEGATIVE); CLARITY,URINE SLIGHTLY CLOUDY; COLOR,URINE YELLOW; GLUCOSE, URINE (UA) NEGATIVE (NEGATIVE); KETONES,URINE NEGATIVE (NEGATIVE); LEUKOCYTE ESTERASE ,URINE 2+ (NEGATIVE); NITRITE,URINE NEGATIVE (NEGATIVE); PH,URINE 5 (5-9); PROTEIN,URINE 2+ (NEGATIVE); UROBILINOGEN,URINE NORMAL (NORMAL)
[2017-11-03 12:17] LABS: ALANINE AMINOTRANSFERASE 20 U/L (0-55); ALBUMIN 3.9 GM/DL (3.2-4.5); ALKALINE PHOSPHATASE 205 U/L (40-136); BILIRUBIN,TOTAL 0.4 MG/DL (0.1-1.0); BUN/CREATININE RATIO 43; CALCIUM 9.6 MG/DL (8.5-10.1); CARBON DIOXIDE 28 MMOL/L (21-32); CHLORIDE 102 MMOL/L (98-107); CREATININE SERUM 0.61 MG/DL (0.60-1.30); GFR ESTIMATED > 60; GLUCOSE 125 MG/DL (70-105); POTASSIUM 4.7 MMOL/L (3.6-5.0); SODIUM 140 MMOL/L (135-145); TOTAL PROTEIN 6.9 GM/DL (6.4-8.2)
[2017-11-03 12:33] LABS: ERYTHROCYTE SEDIMENTATION RATE 69 MM/HR (0-30)
[2017-11-03 12:50] LABS: BACTERIA,URINE LARGE /HPF; YEAST,URINE FEW /HPF
[2017-11-03 12:51] LABS: RBC,URINE >100 /HPF
== END ==
LOC: HH 08:00
PROVIDERS: ATTEND Internal Medicine Rheumatology
DX: M30.1 Polyarteritis with lung involvement [Churg-Strauss] (principal)
CPT/HCPCS: 80053; 81000; 82570; 84156; 85025; 85652; 86141; 87077; 87088; 87186

== ENCOUNTER → 2017-11-20 | Outpatient (CLI) | payer OTHER ==
[2017-11-20 16:26] LABS: BILIRUBIN,URINE NEGATIVE (NEGATIVE); CLARITY,URINE VERY CLOUDY; COLOR,URINE BROWN; GLUCOSE, URINE (UA) NEGATIVE (NEGATIVE); KETONES,URINE 1+ (NEGATIVE); LEUKOCYTE ESTERASE ,URINE 2+ (NEGATIVE); NITRITE,URINE POSITIVE (NEGATIVE); PH,URINE 6.5 (5-9); PROTEIN,URINE 4+ (NEGATIVE); UROBILINOGEN,URINE NORMAL (NORMAL)
[2017-11-20 16:40] LABS: BACTERIA,URINE MODERATE /HPF; RBC,URINE TNTC /HPF; WBC,URINE >100 /HPF
== END ==
LOC: HH 13:06
PROVIDERS: ATTEND Internal Medicine
DX: R31.9 Hematuria, unspecified (principal)
CPT/HCPCS: 81000; 87077; 87088; 87186

== ENCOUNTER → 2017-11-26 | Outpatient (CLI) | payer OTHER ==
[2017-11-26 11:08] LABS: BASOPHILS % (AUTO) 0 % (0-10); EOSINOPHILS # (AUTO) 0.2 10^3/uL (0.0-0.3); EOSINOPHILS % (AUTO) 2 % (0-10); HEMATOCRIT 35 % (40-54); HEMOGLOBIN 10.7 G/DL (13.3-17.7); LYMPHOCYTES # (AUTO) 1.6 X 10^3 (1.0-4.0); LYMPHOCYTES % (AUTO) 14 % (12-44); MEAN CORPUSCULAR HEMOGLOBIN 27 PG (25-34); MEAN CORPUSCULAR HGB CONC 30 G/DL (32-36); MEAN CORPUSCULAR VOLUME 91 FL (80-99); MEAN PLATELET VOLUME 9.4 FL (7.4-10.4); MONOCYTES % (AUTO) 9 % (0-12); NEUTROPHILS # (AUTO) 8.7 X 10^3 (1.8-7.8); NEUTROPHILS % (AUTO) 76 % (42-75); PLATELET COUNT 199 10^3/uL (130-400); WHITE BLOOD COUNT 11.5 10^3/uL (4.3-11.0)
[2017-11-26 11:30] LABS: BUN/CREATININE RATIO 49; CALCIUM 7.6 MG/DL (8.5-10.1); CARBON DIOXIDE 24 MMOL/L (21-32); CHLORIDE 112 MMOL/L (98-107); CREATININE SERUM 0.55 MG/DL (0.60-1.30); GFR ESTIMATED > 60; GLUCOSE 130 MG/DL (70-105); POTASSIUM 3.4 MMOL/L (3.6-5.0); SODIUM 145 MMOL/L (135-145)
== END ==
LOC: HH 08:00
PROVIDERS: ATTEND Internal Medicine Rheumatology
DX: M30.1 Polyarteritis with lung involvement [Churg-Strauss] (principal)
CPT/HCPCS: 80048; 85025

== ENCOUNTER → 2017-12-01 | Outpatient (CLI) | payer OTHER ==
[2017-12-01 14:45] LABS: BILIRUBIN,URINE NEGATIVE (NEGATIVE); CLARITY,URINE CLEAR; COLOR,URINE YELLOW; GLUCOSE, URINE (UA) NEGATIVE (NEGATIVE); KETONES,URINE NEGATIVE (NEGATIVE); LEUKOCYTE ESTERASE ,URINE 1+ (NEGATIVE); NITRITE,URINE NEGATIVE (NEGATIVE); PH,URINE 5 (5-9); PROTEIN,URINE 3+ (NEGATIVE); UROBILINOGEN,URINE NORMAL (NORMAL)
[2017-12-01 15:08] LABS: BACTERIA,URINE FEW /HPF; RBC,URINE 50-100 /HPF; SQUAMOUS EPITHELIAL CELL,UR 0-2 /HPF
== END ==
LOC: HH 08:00
PROVIDERS: ATTEND Internal Medicine
DX: N39.0 Urinary tract infection, site not specified (principal)
CPT/HCPCS: 81000; 87088

== ENCOUNTER → 2017-12-02 | Outpatient (CLI) | payer OTHER ==
[2017-12-02 17:39] LABS: ALANINE AMINOTRANSFERASE 19 U/L (0-55); ALBUMIN 4.1 GM/DL (3.2-4.5); ALKALINE PHOSPHATASE 168 U/L (40-136); BILIRUBIN,TOTAL 0.3 MG/DL (0.1-1.0); BUN/CREATININE RATIO 43; CALCIUM 10.1 MG/DL (8.5-10.1); CARBON DIOXIDE 26 MMOL/L (21-32); CHLORIDE 100 MMOL/L (98-107); CREATININE SERUM 0.69 MG/DL (0.60-1.30); GFR ESTIMATED > 60; GLUCOSE 160 MG/DL (70-105); POTASSIUM 4.6 MMOL/L (3.6-5.0); SODIUM 141 MMOL/L (135-145); TOTAL PROTEIN 7.7 GM/DL (6.4-8.2)
== END ==
LOC: LAB 16:59
PROVIDERS: ATTEND Internal Medicine Infectious Disease
DX: M30.1 Polyarteritis with lung involvement [Churg-Strauss] (principal); Z79.2 Long term (current) use of antibiotics
CPT/HCPCS: 36415; 80053; 80299; 87385

== ENCOUNTER → 2018-01-26 | Outpatient (CLI) | payer OTHER | END | disposition home or self-care (01) | LOC: PREOP 12:04 | PROVIDERS: ATTEND Internal Medicine | DX: Z01.818 Encounter for other preprocedural examination (principal) ==

== ENCOUNTER 2018-01-30 08:26 | Day surgery (SDC) | payer OTHER ==
--- NOTE | 2018-01-27 15:47 | HISTORY AND PHYSICAL ---
DATE OF SERVICE: EGD HISTORY AND PHYSICAL The patient is scheduled for 01/30/2018. HISTORY OF PRESENT ILLNESS: The patient is a 62-year-old white male seen in the office on 01/15/2018 for followup of Churg Kunal syndrome, hypertension and pathologic fracture of T6 with spinal cord injury and secondary paraplegia. He had been going backwards in regard to physical therapy with exercise tolerance and feeling a little more fatigued. His exam was otherwise stable, although there was some improvement noted in lower extremity strength. His quadriceps are still only 2+ in strength and he is unable to be supported. I believe he is independent with transfers. We did send off blood tests and his hemoglobin was down to the mid 7 range with iron studies compatible with iron deficiency anemia with an iron level of 33 and transferrin saturation low at 8.6%. Stools were obtained, which were IFOB positive. It is going to be extremely difficult to get him through colonoscopy, so we will proceed with EGD first. He was started on iron, but reports he has had GI upset with some constipation. PHYSICAL EXAMINATION: GENERAL: Revealed a cushingoid appearing white male, pallorous, but in no acute distress. VITAL SIGNS: His blood pressure was 166/86. CHEST: Clear. CARDIOVASCULAR: Reveal a regular rate and rhythm without murmur, S3 or S4. EXTREMITIES: Reveal 1+ edema bilaterally with no evidence for ulceration. ASSESSMENT AND PLAN: Iron deficiency anemia with occult positive blood in the stool, initiating workup with EGD scheduled for the . Following that as the patient is intolerant of iron, we will plan on giving 1 gram iron dextran considering GI intolerance of oral ferrous sulfate. Job ID: [id number] DocumentID: [id number] Dictated Date: 01/26/2018 16:37:11 Community Organization Aide Date: 01/26/2018 17:12:28 Dictated By: ERIC ADAM MD
[~2018-01-30] VITALS: Ht 179.1 cm; Wt 88.7 kg
[2018-01-30 08:00] VITALS: BP 159/98
[2018-01-30] MEDS ORDERED: D5 LR IV SOLUTION 1,000 ML IV STA (08:42)
[2018-01-30] MEDS ORDERED: D5 LR IV SOLUTION 1,000 ML IV ONE (08:44)
[2018-01-30] MEDS ORDERED: IRON DEXTRAN 25 MG/NS 6.25 ML TOTAL VOLUME IM ONE ×3 (08:45)
[2018-01-30] MEDS ORDERED: LIDOCAINE JELLY 2% (XYLOCAINE) 5 ML TUBE MM PRN (08:45)
[2018-01-30] MEDS ORDERED: HURRICAINE EXT TUBE (BENZOCAINE) XX PRN (08:45)
[2018-01-30] MEDS ORDERED: IRON DEXTRAN 1,000 MG/NS 250 ML IVPB IM ONE ×2 (08:45)
--- NOTE | 2018-01-30 08:56 | Pre-Op Note & Conscious Sedat ---
Pre-Operative Progress Note H&P Reviewed The H&P was reviewed, patient examined and no changes noted. Date H&P Reviewed: Jan 30, 2018 Time H&P Reviewed: 08:45 Conscious Sedation Pre-Proced ASA Class: 3 Airway Mallampati Classification: ([place] appropriate class) I. II. III, IV Lungs Heart ASA score ASA 1: a normal healthy patient ASA 2: a patient with a mild systemic disease (mid diabetes, controlled hypertension, obesity ASA 3: a patient with a severe systemic disease that limits activity (angina , COPD, prior Myocardial infarction) ASA 4: a patient with an incapacitating disease that is a constant threat to life (CHF, renal failure) ASA 5: a moribund patient not expected to survive 24 hrs. (ruptured aneurysm) ASA 6: a declared brain patient whose organs are being harvested. For emergent operations, add the letter E after the classification Grade 3 Sedation Plan: Analgesia, Amnesia, Plan communicated to team members, Discussed options with patient/fam, Discussed risks with patient/fam Note The patient is an appropriate candidate to undergo the planned procedure, sedation, and anesthesia. The patient immediately re-assessed prior to indication. ERIC ADAM MD Jan 30, 2018 08:56
[2018-01-30] MEDS ORDERED: LIDOCAINE JELLY 2% (XYLOCAINE) 5 ML TUBE ONE (09:18)
[2018-01-30] MEDS ORDERED: MIDAZOLAM 2 MG/2 ML (VERSED) VIAL ONE ×2 (09:18)
[2018-01-30] MEDS ORDERED: fentaNYL INJECTION 100 MCG/2 ML AMP ONE (09:18)
[2018-01-30] MEDS ORDERED: HURRICAINE EXT TUBE (BENZOCAINE) ONE (09:18)
[2018-01-30] MEDS: fentaNYL INJECTION 100 MCG/2 ML AMP IVP PRN ×2 (09:50→09:58)
[2018-01-30] MEDS: MIDAZOLAM 2 MG/2 ML (VERSED) VIAL IVP PRN ×4 (09:52→10:05)
[2018-01-30 10:25] VITALS: BP 145/72
[2018-01-30 11:10] VITALS: BP 148/88
[2018-01-30 11:50] VITALS: BP 154/96
[2018-01-30 14:15] VITALS: BP 133/88
[2018-01-30 14:44] VITALS: BP 133/88
--- NOTE | 2018-01-30 19:01 | OPERATIVE REPORT ---
DATE OF SERVICE: 01/30/2018 EGD SUMMARY EGD is performed for diagnostic reasons due to iron deficiency anemia and occult positive blood in the stool. The patient was placed in the left lateral decubitus position. The endoscope was inserted in the oral cavity and under direct visualization, the esophagus was intubated. The endoscope was passed down the esophagus through the stomach and second portion of the duodenum. Careful inspection was made as the endoscope was withdrawn. The patient tolerated the procedure well. FINDINGS: The oral cavity was unremarkable as were the true and false vocal folds, epiglottis and arytenoid aperture. No erythema is noted. Proximal, mid and distal esophagus were unremarkable. The Z-line was distinct without evidence for hiatal hernia formation. No evidence for erythema, rings, webs, strictures or Silver's change to gross inspection is noted. The cardia of the stomach was unremarkable. There is a small area of erythema along the anterior wall of the proximal fundus mid portion. There was some oozing with a small amount of hemosiderin stranding in the cardia of the stomach only. The small lesion measuring roughly 3 x 4 mm in size was biopsied, ablated and submitted for histopathology with no significant postoperative blood loss. Elsewhere, there was no evidence to suggest gastritis. The pylorus, pyloric channel, duodenal bulb and second portion of duodenum were unremarkable with normal villous architecture. No evidence for duodenitis, ulceration or blood was noted. ASSESSMENT: One small area of focal hemorrhagic gastritis versus angiodysplasia with oozing is present in the proximal portion of the fundus along the mid anterior wall of the stomach. It was biopsied and ablated and submitted for histopathology. Following the procedure, the patient did receive a gram of iron. At the time of this dictation, he is about correction through the infusion without symptoms. Because of his very tenuous medical status and paraplegia due to recent spinal cord trauma from a thoracic compression fracture, we will be holding recommendation for colonoscopy. As hopefully this lesion in the stomach is the bleeding site. We will obtain occult blood testing of his stool in one month and if it is still positive or if we are not achieving increase in hemoglobin levels with iron therapy, we will need to proceed with colonoscopy at that time and he is likely to require observation admission for his prep, which due to his paraplegia would be problematic. The patient reports he has been quite sedated, sleeping most of the day for the last 2 or 3 days. Medications were reviewed. We will be discontinuing his lorazepam with a status update on Friday. I suspect that the significant iron deficiency anemia may be contributing as well for which iron should be beneficial. We will be monitoring serial CBCs as an outpatient. Job ID: [id number] DocumentID: [id number] Dictated Date: 01/30/2018 11:23:12 Glass Production Machine Operator Date: 01/30/2018 19:00:26 Dictated By: ERIC ADAM MD MTDD
== END 2018-01-30 14:45 | disposition home or self-care (01) ==
LOC: ENDO 08:26
PROVIDERS: ATTEND Internal Medicine
DX: K29.71 Gastritis, unspecified, with bleeding (principal); K31.811 Angiodysplasia of stomach and duodenum with bleeding; D50.9 Iron deficiency anemia, unspecified; R53.83 Other fatigue; G82.20 Paraplegia, unspecified; M30.1 Polyarteritis with lung involvement [Churg-Strauss]; I10 Essential (primary) hypertension; K21.9 Gastro-esophageal reflux disease without esophagitis

== ENCOUNTER → 2018-02-02 | Outpatient (CLI) | payer OTHER ==
[2018-02-02 15:08] LABS: BILIRUBIN,URINE NEGATIVE (NEGATIVE); CLARITY,URINE CLEAR; COLOR,URINE YELLOW; GLUCOSE, URINE (UA) 4+ (NEGATIVE); KETONES,URINE 1+ (NEGATIVE); LEUKOCYTE ESTERASE ,URINE NEGATIVE (NEGATIVE); NITRITE,URINE NEGATIVE (NEGATIVE); PH,URINE 5 (5-9); PROTEIN,URINE 2+ (NEGATIVE); UROBILINOGEN,URINE NORMAL (NORMAL)
[2018-02-02 15:24] LABS: BACTERIA,URINE NEGATIVE /HPF; RBC,URINE 0-2 /HPF
== END ==
LOC: LABNPT 15:03
PROVIDERS: ATTEND Internal Medicine
DX: R50.9 Fever, unspecified (principal); Z87.440 Personal history of urinary (tract) infections
CPT/HCPCS: 81000

== ENCOUNTER 2018-03-11 16:17 | Outpatient (RCR) | payer OTHER ==
[~2018-03-11 16:17] MED LIST changes: -LOSA25TA21 PO; +LOSA25TA6 PO
== END 2018-03-30 | disposition home or self-care (01) ==
PROVIDERS: ATTEND Internal Medicine
DX: R53.1 Weakness (principal); R53.81 Other malaise; G82.20 Paraplegia, unspecified

== ENCOUNTER → 2018-03-30 | Outpatient (CLI) | payer OTHER | LOC: WOUNDCARE 12:19 | PROVIDERS: ATTEND Surgery | DX: L98.411 Non-pressure chronic ulcer of buttock limited to breakdown of skin (principal); L22 Diaper dermatitis; G82.22 Paraplegia, incomplete; M30.1 Polyarteritis with lung involvement [Churg-Strauss] | CPT/HCPCS: 99213 ==

== ENCOUNTER → 2018-04-06 | Outpatient (CLI) | payer OTHER | LOC: WOUNDCARE 12:26 | PROVIDERS: ATTEND Surgery | DX: L98.411 Non-pressure chronic ulcer of buttock limited to breakdown of skin (principal); L22 Diaper dermatitis; G82.22 Paraplegia, incomplete; M30.1 Polyarteritis with lung involvement [Churg-Strauss] | CPT/HCPCS: 99212 ==

== ENCOUNTER → 2018-04-27 | Outpatient (CLI) | payer OTHER | LOC: WOUNDCARE 10:25 | PROVIDERS: ATTEND Surgery | DX: L98.411 Non-pressure chronic ulcer of buttock limited to breakdown of skin (principal); L97.222 Non-pressure chronic ulcer of left calf with fat layer exposed; L22 Diaper dermatitis; G82.22 Paraplegia, incomplete; M30.1 Polyarteritis with lung involvement [Churg-Strauss] | CPT/HCPCS: 99213 ==

== ENCOUNTER → 2018-05-11 | Outpatient (CLI) | payer OTHER | LOC: WOUNDCARE 13:01 | PROVIDERS: ATTEND Nurse Practitioner | DX: L97.222 Non-pressure chronic ulcer of left calf with fat layer exposed (principal); M30.1 Polyarteritis with lung involvement [Churg-Strauss]; L97.411 Non-pressure chronic ulcer of right heel and midfoot limited to breakdown of skin; L22 Diaper dermatitis; G82.22 Paraplegia, incomplete | CPT/HCPCS: 99213 ==

== ENCOUNTER → 2018-05-25 | Outpatient (CLI) | payer OTHER | LOC: WOUNDCARE 13:17 | PROVIDERS: ATTEND Nurse Practitioner | DX: L89.322 Pressure ulcer of left buttock, stage 2 (principal); G82.22 Paraplegia, incomplete; L22 Diaper dermatitis; M30.1 Polyarteritis with lung involvement [Churg-Strauss] | CPT/HCPCS: 99213 ==

== ENCOUNTER → 2018-06-08 | Outpatient (CLI) | payer OTHER | LOC: WOUNDCARE 13:00 | PROVIDERS: ATTEND Nurse Practitioner | DX: L89.322 Pressure ulcer of left buttock, stage 2 (principal); G82.22 Paraplegia, incomplete; L22 Diaper dermatitis; M30.1 Polyarteritis with lung involvement [Churg-Strauss] | CPT/HCPCS: 99212 ==

== ENCOUNTER 2018-06-14 10:04 | Inpatient (IN) | payer OTHER ==
[2018-06-14] VITALS (19 sets, daily range): BP systolic 111–150; BP diastolic 69–97
[~2018-06-14] VITALS: Ht 177.8 cm; Wt 85.3 kg
--- OUTSIDE RECORDS SUMMARY | 2018-06-14 10:09 | XMS REPORT | Clinical Summary ---
Author Author [facility] Address Unknown Phone Unavailable Care Team Providers Care Crm System Administrator Name Role Phone PCP Unavailable Allergies Not on File Current Medications Not on file Active Problems Not on file Social History Tobacco Use Types Packs/Day Years Used Date Never Assessed Sex Assigned at Date Recorded Not on file Last Filed Vital Signs Not on file Plan of Treatment Not on file Results Not on filefrom Last 3 Months
--- OUTSIDE RECORDS SUMMARY | 2018-06-14 10:10 | XMS REPORT | Encounter Summary ---
Author Author [facility] Organization [facility] Address Unknown Phone Unavailable Care Team Providers Care [employer] Manager Name Role Phone Cliff iLma MD Unavailable Shari Lombardi RN Unavailable Unavailable Malika Rosario MD Unavailable Matt Read MD Unavailable Tyshawn Putnam MD Unavailable Carlos Zamora MD Unavailable Laura Ruelas Unavailable Sara Daly DO Unavailable Isa Singh RN Unavailable Unavailable Rishi Herrera MD Unavailable Pedro Fernandez DO Unavailable Unavailable Felipe Mancia MD Unavailable Pedro Fernandez DO Unavailable Unavailable John Cox MD PCP Encounter Details Care Team Description Date Type Department Tyshawn Putnam MD [address] [facility] [address] [place] [address] 05/29/2018 Outpt. [facility] - Internal Therapy [facility] [address] [place] [address] Social History Date Tobacco Use Types Packs/Day Years Used Quit: 06/30/1993 Former Smoker Cigarettes 0.5 20 Smokeless Tobacco: Never Used Alcohol Use Drinks/Week oz/Week Comments No 0 Standard 0.0 drinks or equivalent Sex Assigned at Date Recorded Not on file Industry Job Start Date Occupation Not on file Not on file Not on file Travel End Travel History Travel Start No recent travel history available. as of this encounter Functional Status Date of Assessment Functional Status Response 01/19/2018 Does the patient have a hearing impairment: No 01/19/2018 Does the patient have a visual impairment: Yes 01/19/2018 Does the patient have impaired ambulation: Yes 01/19/2018 Does the patient have an activity of daily living Yes (ADL) impairment: 09/08/2017 Does the patient have an instrumental activity of Yes daily living (IADL) impairment: Date of Assessment Cognitive Status Response 01/19/2018 Does the patient have a cognitive impairment: No as of this encounter Plan of Treatment Not on fileas of this encounter Procedures Comments Procedure Name Priority Date/Time Associated Diagnosis VORICONAZOLE LC-MS/MS Routine 05/29/2018 10:05 AM MECHANICAL TEST TECHNICIAN HISTOPLASMA AG, SERUM Routine 05/29/2018 10:05 AM MECHANICAL TEST TECHNICIAN BUN Routine 05/29/2018 10:05 AM MECHANICAL TEST TECHNICIAN ALT (SGPT) Routine 05/29/2018 10:05 AM MECHANICAL TEST TECHNICIAN AST (SGOT) Routine 05/29/2018 10:05 AM MECHANICAL TEST TECHNICIAN POTASSIUM Routine 05/29/2018 10:05 AM MECHANICAL TEST TECHNICIAN ALK PHOS TOTAL Routine 05/29/2018 10:05 AM MECHANICAL TEST TECHNICIAN CREATININE Routine 05/29/2018 10:05 AM MECHANICAL TEST TECHNICIAN in this encounter Results * HISTOPLASMA AG, SERUM (05/29/2018 10:05 AM MECHANICAL TEST TECHNICIAN) Narrative Performed At Performing Organization Address City/State/Zipcode Phone Number IN CLINIC * VORICONAZOLE LC-MS/MS (05/29/2018 10:05 AM MECHANICAL TEST TECHNICIAN) Voriconazole, Serum 2.8 ug/mL OTHER OUTSIDE LAB Specimen Blood Narrative Performed At Performing Organization Address City/State/Zipcode Phone Number OTHER OUTSIDE LAB * BUN (05/29/2018 10:05 AM MECHANICAL TEST TECHNICIAN) Blood Urea Nitrogen 12 OTHER OUTSIDE LAB Specimen Blood - Blood Performing Organization Address [facility] Phone Number OTHER OUT[facility]IDE [facility] * ALT (SGPT) (05/29/2018 10:05 AM MECHANICAL TEST TECHNICIAN) ALT (SGPT) 16 OTHER OUTSIDE LAB Specimen Blood - Blood Performing Organization Address City[facility] Phone Number OTHER OUTSIDE LAB * AST (SGOT) (05/29/2018 10:05 AM MECHANICAL TEST TECHNICIAN) AST (SGOT) 10 OTHER OUTSIDE LAB Specimen Blood - Blood Performing Organization Address City[facility] Phone Number OTHER OUTSIDE LAB * POTASSIUM (05/29/2018 10:05 AM MECHANICAL TEST TECHNICIAN) Potassium 4.2 OTHER OUTSIDE LAB Specimen Blood - Blood Performing Organization Address City[facility] Phone [facility] OTHER OUTSIDE LAB * ALK PHOS TOTAL (05/29/2018 10:05 AM MECHANICAL TEST TECHNICIAN) Alk Phosphatase 140 OTHER OUTSIDE LAB Specimen Blood - Blood Performing Organization Address City/[facility]/[employer] Phone Number OTHER OUTSIDE LAB * CREATININE (05/29/2018 10:05 AM MECHANICAL TEST TECHNICIAN) Creatinine 0.6 OTHER OUTSIDE LAB Specimen Blood - Blood Narrative Performed At Performing Organization Address City/State/Zipcode Phone Number OTHER OUTSIDE LAB in this encounter Visit Diagnoses Not on filein this encounter
--- OUTSIDE RECORDS SUMMARY | 2018-06-14 10:10 | XMS REPORT | Encounter Summary ---
Author Author [facility] Organization [facility] Address Unknown Phone Unavailable Care Team Providers Care Package Drier Name Role Phone Cliff Lima MD Unavailable Shari Lombardi RN Unavailable Unavailable Malika Rosario MD Unavailable Matt Read MD Unavailable Tyshawn Putnam MD Unavailable Carlos Zamora MD Unavailable Laura Ruelas Unavailable Sara Daly DO Unavailable Isa Singh RN Unavailable Unavailable Rishi Herrera MD Unavailable Pedro Fernandez DO Unavailable Unavailable Felipe Mancia MD Unavailable Pedro Fernandez DO Unavailable Unavailable John Cox MD PCP Reason for Visit * Reason Comments Infusion Therapy Encounter Details Care Team Description Date Type Department Pedro Feldman MD [address] [facility] [address] [place] [address] Infusion Therapy 06/02/2018 Telephone [facility]-Rheumatology [place] [address] [address] [place] [address] Social History Date Tobacco Use Types Packs/Day [...] cognitive impairment: No as of this encounter Miscellaneous Notes * Telephone Encounter - Lukasz Rosario RN - 06/10/2018 10:58 AM PUTTY MAKER Barrett from Dr. Fernandez's office called and stated didn't think there would be any issues with Dr. Fernandez co-signing orders for Nucala. There fax number is [phone] attn Barrett Feldman filled out and signed Nucala orders and faxed them to be co-signed by Dr. Fernandez at fax number above. Will await a response. Received fax confirmation. Leaving in infusion orders for now Y MAKER * Telephone Encounter - Lukasz Rosario RN - 06/10/2018 7:58 AM PUTTY MAKER Received fax from [employer] stating Nucala was approved from 06-09-18 through for 100mg Nucala "It will be co-signed by Pedro Fernandez MD (registered diet technician, in [place] at [facility]). He wants to have it done at [facility]." Called via [facility] and found out the infusion center is also the surgery center. There fax number to send orders and PA approval is [phone]. They gave me Dr. Pedro Fernandez office ph number [phone]. I called and lvm asking for there fax number to send Nucala orders for doctor to co-sign. Will await call back Y MAKER * Telephone Encounter - Lukasz Rosario RN - 06/09/2018 9:12 AM PUTTY MAKER Filled out PA for Nucala form and faxed it with CARMELINA note to [employer] at fax number [phone]. Received fax confirmation Placing in Pending PA folder for now Y MAKER * Telephone Encounter - Cat Chavez - 06/08/2018 11:54 AM PUTTY MAKER I called [employer] [phone] and spoke to Lanre. He stated that per the patient's plan, once the PA is approved, the medication is sent to a specialty pharmacy to be filled. Once filled it can be sent to whatever facility is going to provide the infusion. Lanre stated he is going to get the paperwork together for the PA and will fax it over. Y MAKER * Telephone Encounter - Lukasz Rosario RN - 06/08/2018 8:29 AM PUTTY MAKER Routing to Ghada to please initiate the form to pre-cert this Nucala infusion/inj Y MAKER * Telephone Encounter - Lukasz Rosario RN - 06/02/2018 6:36 AM PUTTY MAKER ----- Message from Pedro Feldman MD sent at 05/29/2018 3:02 PM PUTTY MAKER ----- Lukasz, Mr Diaz will be having his Nucala done close to home. It will be co-signed by Pedro Fernandez MD (registered diet technician, in [place] at [facility]). He wants to have it done at [facility]. Thanks, Pedro Feldman MD [place] Y MAKER in this encounter Plan of Treatment Not on fileas of this encounter Visit Diagnoses Not on filein this encounter
--- OUTSIDE RECORDS SUMMARY | 2018-06-14 10:10 | XMS REPORT | Encounter Summary ---
Author Author [facility] Organization [facility] Address Unknown Phone Unavailable Care Team Providers Care Bench Lay Out Technician Name Role Phone Cliff Lima MD Unavailable [...] PCP Reason for Visit * Reason Comments New Patient Encounter Details Care Team Description Date Type Department Vani Boyd MD [address] [facility] [address] [place] [address] New Patient 06/02/2018 Telephone [facility] Jeffrey Conway MD [facility] [address] [place] [address] Social History Date Tobacco Use [...]
--- OUTSIDE RECORDS SUMMARY | 2018-06-14 10:10 | XMS REPORT | Encounter Summary ---
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 as of this encounter Last Filed Vital Signs Time Taken Vital Sign Reading 05/29/2018 2:42 PM REHAB LIAISON Blood Pressure 134/88 05/29/2018 2:42 PM REHAB LIAISON Pulse 117 05/29/2018 2:42 PM REHAB LIAISON Temperature 36.7 C (98.1 F) 05/29/2018 2:42 PM REHAB LIAISON Respiratory Rate 20 05/29/2018 2:42 PM REHAB LIAISON Oxygen Saturation 97% - Inhaled Oxygen - Concentration 05/29/2018 2:42 PM REHAB LIAISON Weight 88.9 kg (196 lb) 05/29/2018 2:42 PM REHAB LIAISON Height 177.8 cm (5' 10") 05/29/2018 2:42 PM REHAB LIAISON Body Mass Index 28.12 in this encounter Functional Status Date of Assessment [...] cognitive impairment: No as of this encounter Progress Notes * Pedro Feldman MD - 05/29/2018 2:30 PM REHAB LIAISON Follow-up for EGPA Patient Active Problem List Asthma Date Noted: 04/14/2018 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 Chest pain Date Noted: 09/08/2017 Neuropathic pain Date Noted: 09/03/2017 Impaired mobility and ADLs Date Noted: 08/28/2017 Neurogenic bowel Date Noted: 08/28/2017 Neurogenic bladder Date Noted: 08/28/2017 Spinal cord injury at T8 level ([facility]) Date Noted: 08/15/2017 Paraplegia ([facility]) Date Noted: 08/08/2017 Pseudomonas pneumonia ([facility]) Date Noted: 08/08/2017 Immunosuppression ([facility]) Date Noted: 08/08/2017 Compression fracture of thoracic spine, non-traumatic ([facility]) GERD (gastroesophageal reflux disease) History of histoplasmosis Osteopenia Sleep disorder Stage 3 chronic kidney disease ([facility]) Date Noted: 06/09/2017 Compression fracture Date Noted: 05/11/2015 Shortness of breath Date Noted: 05/11/2015 GI bleed Date Noted: 09/30/2014 Disseminated histoplasmosis Date Noted: 2014 Acute on chronic respiratory failure with hypoxia and hypercapnia ([facility]) Date Noted: 04/02/2014 Pancytopenia ([facility]) Date Noted: 03/31/2014 Osteoarthritis Date Noted: 03/21/2011 Paraesthesia of skin Date Noted: 03/19/2011 shelter current use of systemic steroids Date Noted: 03/19/2011 Joint pain Date Noted: 12/17/2010 Encounter for long-term (current) use of high-risk medication Date Noted: 12/17/2010 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 Manifestations including ? eosinophilia, adult onset asthma, sinusitis, nasal polyps, DAH, mononeuritis multiplex. Patientwas diagnosed with EGPA in 2001 after presenting with asthma, nasal polyps, allergic rhinitis, foot drop and DAH. He was initiallytreated with IV CTX and high dose steroids thencontinued on poCytoxan for 4 additional years. After that pt was swtiched to MMF and MTX. Due to previous hematuria, he did have cystoscopy in 2009, which was negative. Ptwas initially seen at Rheumatology clinic by Dr. Emmanuel and Zara starting in 2010. He was maintained on MMF, SQ MTX, and prednisone until hospitalization in 03/2014 for disseminated histoplasmosis (diagnosed via BMBx after developing pancytopenia). He was treated with amphotericin at that time. MTX and MMF were discontinued and he was continued on prednisone. 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 Due to refractory sinusitis in 07/2014, he was started on IVIG for EGPA as an immunomodulator as pt cannot be on immunosuppressive therapy per ID recs due to concerns of histo reactivation. For IVIG, pt was initially on 500mg daily for 4 days per month but this was decreased due to [place]. He was also started on Xolair around that time for asthma, but was discontinued after 2 years because of lack of benefit. He has continued to follow with [place]. [place] is [place] voriconazole 200mg BID for histoplasmosis. He has anoutside car porter, Dr. Fernandez,in [place], who is managing his asthma. His course has been complicated by GI bleeding in 09/2014 and in 12/2017 (s/p cauterization and iron therapy). Osteopenia previously treated with fosamax x 5 years (d/c'ed in 2011), then Forteo x 2 years and now currently on Fosamax again. From12/2016-12/2017, pt hadright lower extremity wounds which developed after fall down the stairs. 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 In 03/2017, patient wasevaluated by Dr. Crawley of Nephrology because of hematuria. He did have dysmorphic RBC's on urine microscopy but no casts. Given that renal function has been stable and risk of histo, we have not pursued renal biopsy or escalated his immunosuppression. In early 2017, pt had a T8 spinal injury due to compression fracture (associated with steroid-induced osteoporosis) resulting in paraplegia and wheelchair-bound. It was decided to start Mepolizumab in April 2018 in an effort to taper his prednisone (risks and benefits discussed). INTERVAL HX: Mr Diaz was last seen 6 weeks ago. At that time, after much discussion about the risks and benefits, it was decided to start him on Mepolizumab. He would like to get the mepolizumab injections in [place], [place]. He notes that he is still having odd sleep patterns. He will sleep for 2-3 days at a time. He then has episodes where he is a week for a long period of time. He was given Ritalin by his primary care physician. He was seen by his petrographer yesterday to see if he would be a candidate for a cochlear implant. It was believed that he would not be a candidate for an implant. He does not think that he will pursue this any further. He does note that his hearing has been monitored and has been stable. He denies any ear pain. He was also seen by his ENT physician yesterday (Dr. Fei Palencia). On examination there were no polyps seen. He does note that he has gotten more crusting from his nose. He notes that he is starting to get pains and locking in his hands over the last week. He has been playing the piano more recently. He denies any swelling in his hands. He feels like his eosinophilic granulomatosis with polyangiitis is worsening. He has noted some increasing numbness in his legs, specifically that it has moved up his legs and now up into the calves. He also reports increased pressure in his sinuses recently. He notes that his breathing has been somewhat worse recently. He notes a cough associated with postnasal drip. He has noted increasing wheezing. CURRENT IMMUNOSUPPRESSANTS: Prednisone 13mg in am (occasionally takes another 10mg at night, about 3 times per week) SMALL/MEDIUM VESSEL VASCULITIS ROS: GENERAL: + fatigue. No night sweats. FEVER: None WEIGHT CHANGE: None ENT: + increased sinus pressure. + increased crusting. No epistaxis or bloody crusting. Heairng loss as in HPI. No ear pain. No voice changes. No mouth sores or gum changes. EYES: + right eye vision changes (follows with furnace stock inspector). No eye redness or pain. + eye discharge. + eye watering. RESPIRATORY: As in HPI. CARDIOVASCULAR: Negative GASTROINTESTINAL: + intermittent stomach cramping, diarrhea/contipation. No abdominal angina. URINARY: wears condom catheter. MUSCULOSKELETAL: + hand pains. Occasional back pain. NEUROLOGIC: + increased feelings around rectum. Improved strength in legs. Increased numbness as in HPI. SKIN: + easy bruising. + wounds on legs (seeing wound clinic). OTHER ROS: Otherwise 12 point ROS negative BONE HEALTH: Last Bone Density: 07/2016 Bone prophylaxis: Fosamax Treatment of osteoporosis: s/p Forteo, on Fosamax INFECTION PREVENTION: PJP prophylaxis: None Last influenza vaccination: 03/2018 Date of Prevnar: 05/2013 Date of Pneumovax: 07/2016, 06/2014 MEDICATIONS: acetaminophen (TYLENOL PO), Take by mouth as Needed., Disp: , Rfl: albuterol (ACCUNEB) 0.63 mg/3 mL nebulizer solution, Inhale 0.63 mg solution as directed every 6 hours as needed., Disp: , Rfl: atorvastatin calcium (LIPITOR PO), Take 20 mg by mouth daily., Disp: , Rfl: budesonide/formoterol,+, (SYMBICORT) 160/4.5 mcg HFAA inhalation, Inhale 2 Puffs by mouth twice daily., Disp: , Rfl: bumetanide (BUMEX) 2 mg tablet, Take 2 mg by mouth daily., Disp: , Rfl: diltiazem CD (CARDIZEM CD) 180 mg capsule, Take 180 mg by mouth daily., Disp: , Rfl: diphenoxylate/atropine (LOMOTIL) 2.5/0.025 mg tablet, Take 1 tablet by mouth four times daily as needed for Diarrhea., Disp: , Rfl: empagliflozin-metformin (SYNJARDY) 12.5-1,000 mg tab, Take 2 tablets by mouth daily., Disp: , Rfl: ferrous sulfate (FEOSOL, FEROSUL) 325 mg (65 mg iron) tablet, Take 325 mg by mouth daily. Take on an empty stomach at least 1 hour before or 2 hours after food., Disp: , Rfl: finasteride (PROSCAR) 5 mg tablet, Take 5 mg by mouth daily., Disp: , Rfl: folic acid (FOLVITE) 1 mg tablet, Take 1 mg by mouth daily., Disp: , Rfl: guaifenesin (MUCINEX PO), Take by mouth., Disp: , Rfl: HYDROcodone/acetaminophen(+) (NORCO) 10/325 mg tablet, Take 1 tablet by mouth every 4 hours as needed for Pain, Disp: , Rfl: ipratropium/albuterol (COMBIVENT) 103/18 mcg/Actuation inhaler, Inhale 2 Puffs by mouth As Needed for Wheezing., Disp: , Rfl: loratadine (CLARITIN) 10 mg tablet, Take 10 mg by mouth daily as needed., Disp: , Rfl: losartan (COZAAR) 25 mg tablet, Take 25 mg by mouth daily., Disp: , Rfl: melatonin 3 mg tab, Take 3 mg by mouth at bedtime daily., Disp: , Rfl: mirtazapine (REMERON) 30 mg tablet, Take 30 mg by mouth at bedtime daily., Disp : , Rfl: pantoprazole DR (PROTONIX) 40 mg tablet, Take 40 mg by mouth daily., Disp: , Rfl : potassium chloride(+) (KLOR-CON 8) 8 mEq tablet, Take 8 mEq by mouth daily., Disp: , Rfl: prednisone (DELTASONE) 5 mg tablet, Take 3 tablets by mouth daily., Disp: 90 tablet, Rfl: 1 senna (SENOKOT) 8.6 mg tablet, Take 2 tablets by mouth at bedtime daily. ( Patient taking differently: Take 2 tablets by mouth at bedtime as needed.), Disp : 90 tablet, Rfl: 3 tamsulosin (FLOMAX) 0.4 mg capsule, Take 0.4 mg by mouth daily. Do not crush, chew or open capsules. Take 30 minutes following the same meal each day., Disp: , Rfl: teriparatide(+) (FORTEO) 20 mcg/dose - 600 mcg/2.4 mL pnij injection pen, Inject 20 mcg under the skin daily., Disp: , Rfl: Testosterone (ANDRODERM) 4 mg/24 hr pt24, Apply 1 Patch to top of skin as directed., Disp: , Rfl: traZODone (DESYREL) 100 mg tablet, Take 100 mg by mouth at bedtime daily., Disp : , Rfl: umeclidinium(+) (INCRUSE ELLIPTA) 62.5 mcg/actuation inhalation disk, Inhale 1 puff by mouth into the lungs daily., Disp: , Rfl: vitamins, B complex tab, Take 1 Tab by mouth daily., Disp: , Rfl: voriconazole (VFEND) 200 mg tablet, TAKE 1 TABLET BY MOUTH TWICE DAILY FOR 240 DAYS, Disp: 60 tablet, Rfl: 7 PHYSICAL EXAMINATION BP 134/88 (BP Source: Arm, Left Upper, Patient Position: Sitting) | Pulse 117 | Temp 36.7 C (98.1 F) (Oral) | Resp 20 | Ht 177.8 cm (70") | Wt 88.9 kg (196 lb) Comment: advised verbal from patient | SpO2 97% | BMI 28.12 kg/m GENERAL Arrived in wheelchair. APPEARANCE: Cushingoid. Appropriate affect. No apparent distress. Alert. SKIN: + bruising. No rashes. EYES: Conjunctiva clear, PERRL, EOM normal. EARS: External ears normal, TM's normal. NOSE/SINUSES: No sinus tenderness. + nasal crusting. + diffuse nasal erythema. OROPHARYNX: No oral lesions present, no oral ulcers. LUNGS: + wheezing and decreased breath sounds throughout. HEART: RRR, no gallops, rubs or murmurs. ABDOMEN: Deferred as patient is in wheelchair. MUSCULOSKELETAL: Normal. NEURO: Normal strength in arms. 2+/5 hip flexor strength. 3/5 knee extension. 2+ /5 dorsiflexion of ankles. 3/5 plantar flexion. OTHER PHYSICAL EXAMINATION: None. LABS: CBC w/Diff Lab Results Component Value Date/Time WBC 8.11 03/24/2018 09:24 AM RBC 3.07 (L) 01/19/2018 12:27 PM HGB 10.4 03/24/2018 09:24 AM HCT 24.8 (L) 01/19/2018 12:27 PM MCV 80.9 01/19/2018 12:27 PM MCH 24.9 (L) 01/19/2018 12:27 PM MCHC 30.8 (L) 01/19/2018 12:27 PM RDW 18.5 (H) 01/19/2018 12:27 PM PLTCT 169 03/24/2018 09:24 AM MPV 7.1 01/19/2018 12:27 PM Lab Results Component Value Date/Time NEUT 64 09/28/2017 05:58 AM ANC 7.31 (H) 01/19/2018 12:27 PM ANC 4.10 09/28/2017 05:58 AM LYMA 24 09/28/2017 05:58 AM ALC 1.50 09/28/2017 05:58 AM SURI 11 09/28/2017 05:58 AM AMC 0.70 09/28/2017 05:58 AM EOSA 1 09/28/2017 05:58 AM AEC 0.10 09/28/2017 05:58 AM BASA 0 09/28/2017 05:58 AM ABC 0.00 09/28/2017 05:58 AM Component Latest Ref Rng & Units 05/29/2018 05/29/2018 05/29/2018 10:05 AM 10:05 AM 10:05 AM Creatinine 0.6 AST (SGOT) 10 ALT (SGPT) 16 ASSESSMENT: EGPA ([facility]) Disseminated histoplasmosis detention steroid use Asthma Compression fracture of spine Paraplegia related to compression fracture Mr Diaz comes for follow-up of eosinophilic granulomatosis with polyangiitis. Unfortunately, he has not had a chance to start mepolizumab as of yet. He would like to get it done close to home and so we will create some orders to send to his car porter to cosign. We can consider tapering his prednisone ( slowly) once mepolizumab gets established (after the second dose). For now, I would like him to increase his prednisone up to 15 mg daily. PLAN: Increase prednisone to 15mg/d Get orders together for Mepolizumab 300mg SQ monthly to be done close to home Monitoring: monthly labs Patient instructed to notify provider of any changes in medical condition. 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
--- OUTSIDE RECORDS SUMMARY | 2018-06-14 10:10 | XMS REPORT | Encounter Summary ---
Author Author [facility] Organization [facility] Address Unknown Phone Unavailable Care Team Providers Care Handcrew Foreman Name Role Phone Cliff Lima MD Unavailable [...] Date Type Department Pedro Feldman MD [address] [facility] [address] [place] [address] 05/11/2018 Orders Only [facility] Physicians-Rheumatology [facility] [place] [address] Social History Date Tobacco Use [...]
--- OUTSIDE RECORDS SUMMARY | 2018-06-14 10:10 | XMS REPORT | Clinical Summary ---
Author Author [facility] Organization [facility] Address Unknown Phone Unavailable Care Team Providers Care Resource Conservation Manager Name Role Phone Cliff Lima MD Unavailable Shari Lombardi RN Unavailable Unavailable Malika Rosario MD Unavailable Matt Read MD Unavailable Tyshawn Putnam MD Unavailable Carlos Zamora MD Unavailable Laura Ruelas Unavailable Sara Daly DO Unavailable Isa Singh RN Unavailable Unavailable Rishi Herrera MD Unavailable Pedro Fernandez DO Unavailable Unavailable Felipe Mancia MD Unavailable Pedro Fernandez DO Unavailable Unavailable John Cox MD PCP Source Comments Some departments are not documenting in the electronic medical record. If you do not see the information that you expected, contact Release of Information in the Health Information Management department at [phone] for further assistance in locating additional records.[facility] Allergies No Known Allergies Medications End Date Status Medication Sig Dispensed Refills Start Date Active budesonide/formoterol,+, Inhale 2 0 (SYMBICORT) 160/4.5 mcg Puffs by HFAA inhalation mouth twice daily. Active ipratropium/albuterol Inhale 2 0 (COMBIVENT) 103/18 Puffs by mcg/Actuation inhaler mouth As Needed for Wheezing. Active albuterol (ACCUNEB) 0.63 Inhale 0.63 0 mg/3 mL nebulizer mg solution solution as directed every 6 hours as needed. Active pantoprazole DR Take 40 mg by 0 (PROTONIX) 40 mg tablet mouth daily. Active teriparatide(+) (FORTEO) Inject 20 mcg 0 20 mcg/dose - 600 mcg/2.4 under the mL pnij injection pen skin daily. Active vitamins, B complex tab Take 1 Tab by 0 mouth daily. Active Testosterone (ANDRODERM) Apply 1 Patch 0 4 mg/24 hr pt24 to top of skin as directed. Active voriconazole (VFEND) 200 TAKE 1 TABLET 60 tablet 7 05/30/201 mg tabletIndications: BY MOUTH 7 Histoplasmosis TWICE DAILY FOR 240 DAYS Active umeclidinium(+) (INCRUSE Inhale 1 puff 0 ELLIPTA) 62.5 by mouth into mcg/actuation inhalation the lungs disk daily. Active senna (SENOKOT) 8.6 mg Take 2 90 tablet 3 08/27/201 tablet tablets by 8 mouth at bedtime daily. Active prednisone (DELTASONE) 5 Take 3 90 tablet 1 10/15/201 mg tablet tablets by 8 mouth daily. Active HYDROcodone/acetaminophen Take 1 tablet 0 (+) (NORCO) 10/325 mg by mouth tablet every 4 hours as needed for Pain Active loratadine (CLARITIN) 10 Take 10 mg by 0 mg tablet mouth daily as needed. Active potassium chloride(+) Take 8 mEq by 0 (KLOR-CON 8) 8 mEq tablet mouth daily. Active bumetanide (BUMEX) 2 mg Take 2 mg by 0 tablet mouth daily. Active diltiazem CD (CARDIZEM Take 180 mg 0 CD) 180 mg capsule by mouth daily. Active losartan (COZAAR) 25 mg Take 25 mg by 0 tablet mouth daily. Active empagliflozin-metformin Take 2 0 (SYNJARDY) 12.5-1,000 mg tablets by tab mouth daily. Active mirtazapine (REMERON) 30 Take 30 mg by 0 mg tablet mouth at bedtime daily. Active diphenoxylate/atropine Take 1 tablet 0 (LOMOTIL) 2.5/0.025 mg by mouth four tablet times daily as needed for Diarrhea. Active folic acid (FOLVITE) 1 mg Take 1 mg by 0 tablet mouth daily. Active finasteride (PROSCAR) 5 Take 5 mg by 0 mg tablet mouth daily. Active traZODone (DESYREL) 100 Take 100 mg 0 mg tablet by mouth at bedtime daily. Active ferrous sulfate (FEOSOL, Take 325 mg 0 FEROSUL) 325 mg (65 mg by mouth iron) tablet daily. Take on an empty stomach at least 1 hour before or 2 hours after food. Active tamsulosin (FLOMAX) 0.4 Take 0.4 mg 0 mg capsule by mouth daily. Do not crush, chew or open capsules. Take 30 minutes following the same meal each day. Active atorvastatin calcium Take 20 mg by 0 (LIPITOR PO) mouth daily. Active melatonin 3 mg tab Take 3 mg by 0 mouth at bedtime daily. Active acetaminophen (TYLENOL Take by 0 PO) mouth as Needed. Active guaifenesin (MUCINEX PO) Take by 0 mouth. 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 Chest pain 09/08/2017 Neuropathic pain 09/03/2017 Impaired mobility and ADLs 08/28/2017 Neurogenic bowel 08/28/2017 Neurogenic bladder 08/28/2017 Spinal cord injury at T8 level 08/15/2017 Paraplegia 08/08/2017 Pseudomonas pneumonia 08/08/2017 Immunosuppression 08/08/2017 Stage 3 chronic kidney disease 06/09/2017 Compression fracture 05/11/2015 Shortness of breath 05/11/2015 GI bleed 09/30/2014 Disseminated histoplasmosis 2014 Acute on chronic respiratory failure with hypoxia and hypercapnia 04/02/2014 Pancytopenia 03/31/2014 Osteoarthritis 03/21/2011 Paraesthesia of skin 03/19/2011 senior care current use of systemic steroids 03/19/2011 Joint pain 12/17/2010 Encounter for long-term (current) use of high-risk medication 12/17/2010 senior care (current) use of systemic steroids 12/17/2010 Vasculitis 12/17/2010 Peripheral edema 12/17/2010 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 Compression fracture of thoracic spine, non-traumatic GERD (gastroesophageal reflux disease) History of histoplasmosis Osteopenia Sleep disorder Resolved Problems Problem Noted Date Resolved Date Sepsis 2014 06/09/2017 Encounters Care Team Description Date Type Specialty Pedro Feldman MD General Question ([facility]) 06/10/2018 Telephone Rheumatology Vani Boyd MD New Patient 06/02/2018 Telephone Neurosurgery Pedro Feldman MD Infusion Therapy 06/02/2018 Telephone Rheumatology Pedro Feldman MD Eosinophilic granulomatosis with polyangiitis (EGPA) (HCC) (Primary Dx); Disseminated histoplasmosis; senior care systemic steroid user; Spinal cord injury at T8 level, subsequent encounter (HCC); Paraplegia (HCC); Uncomplicated asthma, unspecified asthma severity, unspecified whether persistent 05/29/2018 Office Visit Rheumatology Tyshawn Putnam MD 05/29/2018 Outpt. 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 Infectious Diseases Antibiotic Therapy from Last 3 Months Immunizations Name Dates Previously Given Next Due FLU VACCINE >3YO 08/01/2017 Pneumococcal Vaccine 08/02/2016, 07/28/2014 (23-[facility] Adult) Pneumococcal 06/01/2013 Vaccine(13-[facility] Peds/immunocompromised adult) Family History Medical History Relation Name Comments Other Father Polyarteritis [place] Cancer Maternal cancer-nose Grandfather Arthritis-osteo Mother Arthritis-rheumatoid Mother Asthma Mother Cancer Mother leukemia Stroke Paternal Grandfather Relation Name Status Comments Father Maternal Grandfather Mother Paternal Grandfather Social History Date Tobacco Use Types Packs/Day Years Used Quit: 06/30/1993 Former Smoker Cigarettes 0.5 20 Smokeless Tobacco: Never Used Tobacco Cessation: Counseling Given: No Alcohol Use Drinks/Week oz/Week Comments No 0 Standard 0.0 drinks or equivalent Sex Assigned at Date Recorded Not on file Industry Job Start Date Occupation Not on file Not on file Not on file Travel End Travel History Travel Start No recent travel history available. Last Filed Vital Signs Time Taken Vital Sign Reading 05/29/2018 2:42 PM ADJUSTER AND INSPECTOR Blood Pressure 134/88 05/29/2018 2:42 PM ADJUSTER AND INSPECTOR Pulse 117 05/29/2018 2:42 PM ADJUSTER AND INSPECTOR Temperature 36.7 C (98.1 F) 05/29/2018 2:42 PM ADJUSTER AND INSPECTOR Respiratory Rate 20 05/29/2018 2:42 PM ADJUSTER AND INSPECTOR Oxygen Saturation 97% - Inhaled Oxygen - Concentration 05/29/2018 2:42 PM ADJUSTER AND INSPECTOR Weight 88.9 kg (196 lb) 05/29/2018 2:42 PM ADJUSTER AND INSPECTOR Height 177.8 cm (5' 10") 05/29/2018 2:42 PM ADJUSTER AND INSPECTOR Body Mass Index 28.12 Plan of Treatment Health Maintenance Due Date Last Done Comments HEPATITIS C SCREENING 1955 PHYSICAL (COMPREHENSIVE) 1962 EXAM DTAP/TDAP VACCINES (1 - 1973 Tdap) COLORECTAL CANCER 2005 SCREENING SHINGLES RECOMBINANT 2005 VACCINE (1 of 2) INFLUENZA VACCINE 01/28/2018 08/01/2017 HIV SCREENING Completed 04/02/2014 Implants Device Identifier Shelf Expiration Date Model / Serial / Lot Implanted Type Area [facility] [id number] 07/30/2020 [id number] / NA / [id number] Filter Embolization Jugular Vena Vena Cava CR BARD Cava Delivery Kit [place] - Sna Implanted: Qty: 1 on 08/11/2017 by Vadim Davison MD Procedures Comments Procedure Name Priority Date/Time Associated Diagnosis HISTOPLASMA AG, SERUM Routine 05/29/2018 10:05 AM ADJUSTER AND INSPECTOR VORICONAZOLE LC-MS/MS Routine 05/29/2018 10:05 AM ADJUSTER AND INSPECTOR BUN Routine 05/29/2018 10:05 AM ADJUSTER AND INSPECTOR ALT (SGPT) Routine 05/29/2018 10:05 AM ADJUSTER AND INSPECTOR AST (SGOT) Routine 05/29/2018 10:05 AM ADJUSTER AND INSPECTOR POTASSIUM Routine 05/29/2018 10:05 AM ADJUSTER AND INSPECTOR ALK PHOS TOTAL Routine 05/29/2018 10:05 AM ADJUSTER AND INSPECTOR CREATININE Routine 05/29/2018 10:05 AM ADJUSTER AND INSPECTOR HISTOPLASMA AG, SERUM Routine 03/24/2018 9:24 AM CDT VORICONAZOLE LC-MS/MS Routine 03/24/2018 9:24 AM CDT BUN Routine 03/24/2018 9:24 AM CDT ALT (SGPT) Routine 03/24/2018 9:24 AM CDT AST (SGOT) Routine 03/24/2018 9:24 AM CDT POTASSIUM Routine 03/24/2018 9:24 AM CDT ALK PHOS TOTAL Routine 03/24/2018 9:24 AM CDT CREATININE Routine 03/24/2018 9:24 AM CDT PLATELET COUNT Routine 03/24/2018 9:24 AM CDT CBC Routine 03/24/2018 9:24 AM CDT HEMOGLOBIN Routine 03/24/2018 9:24 AM CDT from Last 3 Months Results * VORICONAZOLE LC-MS/MS (05/29/2018 10:05 AM ADJUSTER AND INSPECTOR) Only the most recent of 2 results within the time period is included. Voriconazole, Serum 2.8 ug/mL OTHER OUTSIDE LAB Specimen Blood Narrative Performed At Performing Organization Address City/State/Zipcode Phone Number OTHER OUTSIDE LAB * HISTOPLASMA AG, SERUM (05/29/2018 10:05 AM ADJUSTER AND INSPECTOR) Only the most recent of 2 results within the time period is included. Narrative Performed At Performing Organization Address City/State/Zipcode Phone Number IN CLINIC * BUN (05/29/2018 10:05 AM ADJUSTER AND INSPECTOR) Only the most recent of 2 results within the time period is included. Blood Urea Nitrogen 12 OTHER OUTSIDE LAB Specimen Blood - Blood Performing Organization Address [facility] Phone Number OTHER OUT[facility]IDE [facility] * ALT (SGPT) (05/29/2018 10:05 AM ADJUSTER AND INSPECTOR) Only the most recent of 2 results within the time period is included. ALT (SGPT) 16 OTHER OUTSIDE LAB Specimen Blood - Blood Performing Organization Address City/[facility]/[employer] Phone Number OTHER OUTSIDE LAB * AST (SGOT) (05/29/2018 10:05 AM ADJUSTER AND INSPECTOR) Only the most recent of 2 results within the time period is included. AST (SGOT) 10 OTHER OUTSIDE LAB Specimen Blood - Blood Performing Organization Address [facility]/[employer] Phone Number OTHER OUTSIDE LAB * POTASSIUM (05/29/2018 10:05 AM ADJUSTER AND INSPECTOR) Only the most recent of 2 results within the time period is included. Potassium 4.2 OTHER OUTSIDE LAB Specimen Blood - Blood Performing Organization Address [facility]/[employer] Phone Number OTHER OUTSIDE LAB * ALK PHOS TOTAL (05/29/2018 10:05 AM ADJUSTER AND INSPECTOR) Only the most recent of 2 results within the time period is included. Alk Phosphatase 140 OTHER OUTSIDE LAB Specimen Blood - Blood Performing Organization Address [facility]/[employer] Phone Number OTHER OUTSIDE LAB * CREATININE (05/29/2018 10:05 AM ADJUSTER AND INSPECTOR) Only the most recent of 2 results within the time period is included. Creatinine 0.6 OTHER OUTSIDE LAB Specimen Blood - Blood Narrative Performed At Performing Organization Address City/[facility]/[employer] Phone Number OTHER OUTSIDE LAB * PLATELET COUNT (03/24/2018 9:24 AM CDT) Platelet Count 169 OTHER OUTSIDE LAB Specimen Blood - Blood Performing Organization Address City/[facility]/[employer] Phone Number OTHER OUTSIDE LAB * CBC (03/24/2018 9:24 AM CDT) White Blood Cells 8.11 OTHER OUTSIDE LAB Specimen Blood - Blood Performing Organization Address City/[facility]/[employer] Phone Number OTHER OUTSIDE LAB * HEMOGLOBIN (03/24/2018 9:24 AM CDT) Hemoglobin 10.4 OTHER OUTSIDE LAB Specimen Blood - Blood Narrative Performed At Performing Organization Address City/State/Zipcode Phone Number OTHER OUTSIDE LAB from Last 3 Months Insurance Payer Benefit Subscriber ID Type Phone Address Plan / Group GENERIC COMMERCIAL GENERIC xxxxxxxxxxx COMMERCIAL (OON) Advance Directives Patient has advance care planning documents, and code status on file. For more information, please contact: [facility] [address] [place] [address] Date Inactivated Comments Code Status Date Activated 10/15/2017 1:06 PM DNAR-Limited 10/01/2017 12:05 PM Intervention 10/01/2017 12:05 PM DNAR-Full 09/30/2017 3:50 PM Intervention Provider has discussed Code Status Yes w/Patient or Family? Does the patient want any intervention Yes for a pre-arrest emergency which would necessitate transfer to an ICU setting? Respiratory emergency: does the patient Yes want to have intubation with mechanical ventilation? Symptomatic/hypotensive dysrhythmia with Yes a pulse: does the patient want cardioversion? Hypotension: does the patient want the Yes use of vasopressors if needed for blood pressure? Respiratory emergency: does the patient Yes want to have a trial of non-invasive positive pressure ventilation (NIPPV/BiPAP)? 09/30/2017 3:40 PM DNAR-Full 09/08/2017 11:06 PM Intervention Provider has discussed Code Status Yes w/Patient or Family? Does the patient want any intervention Yes for a pre-arrest emergency which would necessitate transfer to an ICU setting? Respiratory emergency: does the patient No want to have intubation with mechanical ventilation? Symptomatic/hypotensive dysrhythmia with Yes a pulse: does the patient want cardioversion? Hypotension: does the patient want the Yes use of vasopressors if needed for blood pressure? Respiratory emergency: does the patient Yes want to have a trial of non-invasive positive pressure ventilation (NIPPV/BiPAP)? 09/08/2017 11:06 PM DNAR-Limited 09/08/2017 9:38 PM Intervention 09/08/2017 9:38 PM Full Code 09/08/2017 9:31 PM Provider has discussed Code Status No, more discussion w/Patient or Family? needed
--- OUTSIDE RECORDS SUMMARY | 2018-06-14 10:10 | XMS REPORT | Encounter Summary ---
Author Author [facility] Organization [facility] Address Unknown Phone Unavailable Care Team Providers Care Digital Media Analyst Name Role Phone Cliff Lima MD Unavailable [...] PCP Reason for Visit * Reason Comments General Question [facility] Encounter Details Care Team Description Date Type Department Pedro Feldman MD [address] [facility] [address] [place] [address] General Question ([facility]) 06/10/2018 Telephone [facility] Physicians-Rheumatology [facility] [place] [address] Social History Date Tobacco Use [...] Encounter - Lukasz Rosario RN - 06/10/2018 3:33 PM BUILDING TRADES INSTRUCTOR [facility] called and lvm asking for any ins info about pt. They gave this as a call back number [phone] Called and spoke with pt's navneet who stated she would call her ins company to see what was going on and I stated wouldn't give them any information unless I heard differently DING TRADES INSTRUCTOR in this encounter Plan of Treatment Not on fileas of this encounter Visit Diagnoses Not on filein this encounter
--- OUTSIDE RECORDS SUMMARY | 2018-06-14 10:10 | XMS REPORT | Encounter Summary ---
Author Author [facility] Organization [facility] Address Unknown Phone Unavailable Care Team Providers Care Foreign Language Professor Name Role Phone Cliff Lima MD Unavailable [...] PCP Reason for Visit * Reason Comments Medication Follow-up [facility] Encounter Details Care Team Description Date Type Department Pedro Feldman MD [address] [facility] [address] [place] [address] Medication Follow-up (Nucala) 04/27/2018 Telephone [facility] Physicians-Rheumatology [place] [id number] [address] [place] [address] Social History Date Tobacco Use [...] Telephone Encounter - Lukasz Rosario RN - 05/11/2018 2:19 PM VELVET STEAMER Replied via [employer] ET STEAMER * Telephone Encounter - Pedro Feldman MD - 05/06/2018 4:41 PM VELVET STEAMER I placed the order for Mepolizimab. Let's talk about a prednisone taper at our next visit. Thanks, Pedro Feldman MD MS ET STEAMER * Telephone Encounter - Lukasz Rosario RN - 05/06/2018 9:35 AM VELVET STEAMER Pt responded via [employer], "Mila Feldman, I m sorry I didnt get your call earlier. I am getting over another one of those spells where I sleep for 3-4 days without fully waking or getting out of bed. As it always happens, like a light switch, Im now wide awake and feel fine. This happens every couple of weeks. We cant find the cause. My primary doctor wants to next check carbon dioxide levels. As far as Nucala, let us start it. I had both a flu and pneumonia shots last week. Thank you Lanre" Routing to Dr. Feldman ET STEAMER * Telephone Encounter - Lukasz Rosario RN - 04/30/2018 10:30 AM CDT Replying via [employer] * Telephone Encounter - Pedro Feldman MD - 04/30/2018 9:19 AM CDT I tried to call but no one was available. This is definitely a decision we should consider carefully. Mepolizumab (Nucala ) does target a part of the immune system, specifically IL-5. IL-5 is important for eosinophils so it is suppose to directly target eosinophils. In theory, the part of the immune system that fights the disseminated histoplasmosis would not be effected. That being said, it is always possible that the medication can have negative effects from a histoplasmosis standpoint. However, the higher doses prednisone can also have deleterious effects on the histoplasmosis. I want to stress that we are going into uncharted territory as there have not really been reports that I can find of the use of Mepolizumab (Nucala) in patients with histoplasmosis. I have discussed this with several colleagues who are in generally agreement that the Nucala is worth trying and I think that the Nucala is probably the right thing to do. I think you will continue to have side effects from the prednisone if you continue at the high doses. After considering the possible risks, as above, if you are still fine with starting Mepolizumab I will place the order. I will also give you a slow prednisone taper after starting it (please remind me what dose you are taking). Also, we can discuss by phone beforehand if you would like (just let me know a time either today or Friday). Thanks, Pedro Feldman MD MS * Telephone Encounter - Lukasz Rosario RN - 04/28/2018 1:07 PM CDT Pt responded via [employer], "Mila Feldman. Please place the order. I'm ready to try anything. I went to my wound care doctor yesterday for him to see my sahu. It has really bruised from hitting it against something to where he has real concern of the vasculitis and it might open into an ulcer like it did on my other leg in two places. Those healed. We' ll watch this closely. Starting a topical steroid today. I'll contact Dr. Putnam today. Thank You--Lanre" Routing to Dr. Feldman * Telephone Encounter - Lukasz Rosario RN - 04/27/2018 3:21 PM CDT Sent to pt via [employer] * Telephone Encounter - Lukasz Rosario RN - 04/27/2018 7:37 AM CDT ----- Message from Pedro Feldman MD sent at 04/25/2018 11:56 PM CDT ----- Kristian Lal, I told Mr Diaz I would discuss adding Mepolizumab (Nucala) with Dr Putnam, his infectious disease specialist. I also discussed this with several colleagues. I think adding the Nucala is probably the right thing to do, however , he will need to discuss with Dr Putnam what to do with his medications for the histoplasmosis prior to starting Nucala. If he is still fine with starting the Nucala I can place the order for this. Thanks, Pedro Feldman MD MS in this encounter Plan of Treatment Not on fileas of this encounter Visit Diagnoses Not on filein this encounter
--- OUTSIDE RECORDS SUMMARY | 2018-06-14 10:11 | XMS REPORT | Encounter Summary ---
Author Author [facility] Organization [facility] Address Unknown Phone Unavailable Care Team Providers Care Transmission Superintendent Name Role Phone Cliff Lima MD Unavailable [...] Date Type Department Tyshawn Putnam MD [address] [facility] [place] [address] [place] [address] 03/24/2018 Outpt. [facility] - Internal Therapy [facility] Level 4C [address] [place] [address] Social History Date Tobacco Use Types Packs/Day [...] Priority Date/Time Associated Diagnosis VORICONAZOLE LC-MS/MS Routine 03/24/2018 9:24 AM CDT HISTOPLASMA AG, SERUM Routine 03/24/2018 9:24 AM CDT PLATELET COUNT Routine 03/24/2018 9:24 AM CDT CBC Routine 03/24/2018 9:24 AM CDT HEMOGLOBIN Routine 03/24/2018 9:24 AM CDT BUN Routine 03/24/2018 9:24 AM CDT ALT (SGPT) Routine 03/24/2018 9:24 AM CDT AST (SGOT) Routine 03/24/2018 9:24 AM CDT POTASSIUM Routine 03/24/2018 9:24 AM CDT ALK PHOS TOTAL Routine 03/24/2018 9:24 AM CDT CREATININE Routine 03/24/2018 9:24 AM CDT in this encounter Results * HISTOPLASMA AG, SERUM (03/24/2018 9:24 AM CDT) Result, Histoplasma None detected [facility] AG,Serum Specimen Blood Narrative Performed At Performing Organization Address City/State/Zipcode Phone Number [facility] [address] [place], [place] [phone] 10A * VORICONAZOLE LC-MS/MS (03/24/2018 9:24 AM CDT) Voriconazole, Serum 2.5 ug/mL [facility] Specimen Blood Performing Organization Address City/[facility]/Zipcode Phone Number [facility] [address] [place], [place] [phone] 10A * BUN (03/24/2018 9:24 AM CDT) Blood Urea Nitrogen 18 OTHER OUTSIDE LAB Specimen Blood - Blood Performing Organization Address City/[facility] * ALT (SGPT) (03/24/2018 9:24 AM CDT) ALT (SGPT) 15 OTHER OUTSIDE LAB Specimen Blood - Blood Performing Organization Address City/[facility]/Zipcode Phone Number OTHER OUTSIDE LAB * AST (SGOT) (03/24/2018 9:24 AM CDT) AST (SGOT) 10 OTHER OUTSIDE LAB Specimen Blood - Blood Performing Organization Address City/[facility]/Zipcode Phone Number OTHER OUTSIDE LAB * POTASSIUM (03/24/2018 9:24 AM CDT) Potassium 4.4 OTHER OUTSIDE LAB Specimen Blood - Blood Performing Organization Address City/[facility]/Zipcode Phone Number OTHER OUTSIDE LAB * ALK PHOS TOTAL (03/24/2018 9:24 AM CDT) Alk Phosphatase 153 OTHER OUTSIDE LAB Specimen Blood - Blood Performing Organization Address City/[facility]/Zipcode Phone Number OTHER OUTSIDE LAB * CREATININE (03/24/2018 9:24 AM CDT) Creatinine 0.6 OTHER OUTSIDE LAB Specimen Blood - Blood Performing Organization Address City/[facility]/Zipcode Phone Number OTHER OUTSIDE LAB * PLATELET COUNT (03/24/2018 9:24 AM CDT) Platelet Count 169 OTHER OUTSIDE LAB Specimen Blood - Blood Performing Organization Address City/[facility] Phone Number OTHER OUTSIDE LAB * CBC (03/24/2018 9:24 AM CDT) White Blood Cells 8.11 OTHER OUTSIDE LAB Specimen Blood - Blood Performing Organization Address City/[facility] Phone Number OTHER OUTSIDE LAB * HEMOGLOBIN (03/24/2018 9:24 AM CDT) Hemoglobin 10.4 OTHER OUTSIDE LAB Specimen Blood - Blood Narrative Performed At Performing Organization Address City/[facility] Phone Number OTHER OUTSIDE LAB in this encounter Visit Diagnoses Not on filein this encounter
--- OUTSIDE RECORDS SUMMARY | 2018-06-14 10:11 | XMS REPORT ---
Author Author SAURABH BAXTER Organization [facility] Address [address] [place] [address] Care Team Providers Care Oracle Analyst Name Role Phone SAURABH BAXTER Unavailable PROBLEMS Type Condition ICD9-CM Code [id number] Code Onset Dates Condition Status SNOMED Code Problem DTAP TEST V06.1 Active ALLERGIES No Known Allergies ENCOUNTERS Encounter Location Date Diagnosis [place] [address] [address] Dec, Encounter for screening for dental disorder Z13.84 and Visit for dental examination Z01.20 [place] [address] [address] Sep, Dental examination Z01.20 [place] [address] [address] Jul, Dental examination Z01.20 [facility] [address] [phone] Dec, Dental examination V72.2 [facility] [address] [place] [phone] [place] [phone] Nov, Dental examination V72.2 [facility] [address] [phone] October, Dental examination V72.2 [place] [address] [address] Jan, IMMUNIZATIONS No Known Immunizations SOCIAL HISTORY Never Assessed REASON FOR VISIT recare/broken teeth PLAN OF CARE Activity Details Follow Up prn Reason: VITAL SIGNS MEDICATIONS Medication Instructions Dosage Frequency Start Date End Date Duration Status Xolair 150 MG Unknown Metronidazole 500 MG TAKE 1 TABLET (500 MG) BY ORAL ROUTE 3 TIMES PER DAY WITH FOOD. (NO ALCOHOL) 10 Active Voriconazole 200 MG Unknown Immune Globulin (Human) 6 GM Unknown Albuterol Unknown PrednisoLONE Acetate 16.7 (15 Base) MG/5ML Orally Once a day 5 ml 24h Unknown Gabapentin 400 MG TAKE 1 CAPSULE BY MOUTH THREE TIMES DAILY 30 Active Pantoprazole Sodium 40 MG Orally Once a day 1 tablet 24h Unknown Combivent Unknown Symbicort 160-4.5 MCG/ACT Inhalation Twice a day 2 puffs 12h Unknown Ciprofloxacin HCl 500 MG TAKE 1 TABLET (500 MG) BY ORAL ROUTE 2 TIMES PER DAY 7 Active Potassium Chloride ER 8 MEQ Orally Twice a day 2 tablets with food 12h Unknown Ktvmvlmidab-DLWH-Osizilt Prod 10-325 MG Unknown Claritin 10 MG Orally Once a day 1 tablet 24h Unknown Ambien 5 MG Orally Once a day 1 tablet at bedtime 24h Unknown Folic Acid 1 MG TAKE 1 TABLET BY MOUTH DAILY 30 Active Baclofen 10 MG/20ML Unknown Forteo 600 MCG/2.4ML Subcutaneous Once a day 0.08 ml 24h Unknown tylenol 1 tab Unknown Vitamin B Complex - Unknown Diphenoxylate-Atropine 2.5-0.025 MG (Schedule V Drug) TAKE 2 TABLETS BY MOUTH NOW THEN 1 EVERY FOUR HOURS NEEDED FOR DIARRHEA 3 Active Metronidazole 500 MG TAKE 1 TABLET (500 MG) BY ORAL ROUTE 3 TIMES PER DAY WITH FOOD. (NO ALCOHOL) 10 Active Lisinopril 5 MG Unknown Trazodone HCl 100 MG TAKE 1 TABLET AT BEDTIME NEEDED 30 Active Calcium 1000 + D 1000-800 MG-UNIT Unknown Mirtazapine 30 MG TAKE 1 TABLET BY MOUTH DAILY AT BEDTIME 30 Active RESULTS No Results PROCEDURES Procedure Date Ordered Result Body Site INTRAORL-PERIAPICAL 1 FILM [id number] January 09, 2018 BITEWINGS - FOUR FILMS January 09, 2018 [facility]/Board adjustment January 09, 2018 PROPHYLAXIS - ADULT January 09, 2018 Billing Notes on claim January 09, 2018 INSTRUCTIONS MEDICATIONS ADMINISTERED No Known Medications MEDICAL (GENERAL) HISTORY Type Description Date Medical History Churgstress disease Medical History histoplasmosis Medical History asthma/COPD Medical History Pt. has recently had injury/disease to his spinal column and is now paraplegic/wheel chair bound Medical History pneumonia 3 x's while hospitalized for 5 months Medical History deep dentinal decay/caries Surgical History hand right - tendon repair 2016 Surgical History 6 compression fractures - back surgery 2016 Surgical History emergency surgery for bleeding ulcer 2016 Surgical History catarac surgery bilateral Hospitalization History see above surgeries Hospitalization History 17 days for histoplasmosis 2014 Hospitalization History for ulceration repair 4 days 2016 Hospitalization History 5 month hospitalization for spinal damage/pneumonia - 2018
--- OUTSIDE RECORDS SUMMARY | 2018-06-14 10:11 | XMS REPORT | Encounter Summary ---
Author Author [facility] Organization [facility] Address Unknown Phone Unavailable Care Team Providers Care Tax Advisor Name Role Phone Cliff Lima MD Unavailable [...] Unavailable John Cox MD PCP Reason for Referral * Consult, Test & Treat (Routine) Referred By Contact Referred To Contact Status Reason Specialty Diagnoses / Procedures Pedro Feldman MD [address] [place] [address] John Belcher MD [address] [place] [address] New Request Specialty Services Pulmonology Diagnoses Required Eosinophilic granulomatosis with polyangiitis (EGPA) ([facility]) Shortness of breath Asthma, unspecified asthma severity, unspecified whether complicated, unspecified whether persistent Reason for Visit * Reason Comments Office Visit Follow Up Encounter Details Care Team Description Date Type Department Pedro Feldman MD [address] [facility] [address] [place] [address] Eosinophilic granulomatosis with polyangiitis (EGPA) ([facility]) ( Primary Dx); Shortness of breath; Asthma, unspecified asthma severity, unspecified whether complicated, unspecified whether persistent; Paraplegia (HCC); Spinal cord injury at T8 level, subsequent encounter (HCC); Disseminated histoplasmosis; 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; Steroid-induced osteoporosis 04/14/2018 Office Visit [facility] [place] [address] [address] [place] [address] Social History Date Tobacco Use [...] Vital Signs Time Taken Vital Sign Reading 04/14/2018 2:24 PM CDT Blood Pressure 134/71 04/14/2018 2:24 PM CDT Pulse 81 04/14/2018 2:24 PM CDT Temperature 36.7 C (98.1 F) - Respiratory Rate - 04/14/2018 2:24 PM CDT Oxygen Saturation 93% - Inhaled Oxygen - Concentration 04/14/2018 2:24 PM CDT Weight 86.2 kg (190 lb) 04/14/2018 2:24 PM CDT Height 177.8 cm (5' 10") 04/14/2018 2:24 PM CDT Body Mass Index 27.26 in this encounter Functional Status Date of [...] cognitive impairment: No as of this encounter Patient Instructions * Patient Instructions* America Gomez DO - 04/14/2018 2:00 PM CDT -Take prednisone 5mg po AM and 10mg PM in this encounter Progress Notes * Pedro Feldman MD - 04/14/2018 2:00 PM CDT ATTESTATION I personally performed the douglass portions of the E/M visit, discussed case with resident/fellow and concur with the documentation of history, physical exam, assessment, and treatment plan unless otherwise noted. Mr Diaz comes to establish care in the [facility] of [facility]. I am familiar with his history. He has a history of disseminated histoplasmosis which has made his treatment of the [facility] complicated. One of the main issues is that he has not been able to taper down on the prednisone. He currently takes 15mg/d with an extra 10mg on most nights to help breath. He has had a severe compression fracture which has resulted in paraplegia. I think he will continue to have complications from the steroids at these doses. In addition, these doses of prednisone do suppress his immune system making him more susceptible to the histoplasmosis. I would like him to see one of our rocket engine tester for a second opinion his breathing. We have tried IVIG in the past but this did not help him lower the prednisone. Mepolizumab (Nucala) may be a consideration. Mepolizumab targets eosinophils primarily so theoretically it should not be blocking the arm of the immune system that fights histoplasmosis. If Mepolizumab resulted in successful tapering of the prednisone it would probably less risky then continuing his current prednisone regiment. I will get Dr Putnam's thoughts on this as well. Pedro Feldman MD MS [facility] Division of Allergy, Clinical Immunology and Rheumatology [address] [place] [address] Follow-up for EGPA PROBLEM LIST: Patient Active Problem List 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 Chest pain Date Noted: 09/08/2017 Neuropathic pain Date Noted: 09/03/2017 Impaired mobility and ADLs Date Noted: 08/28/2017 Neurogenic bowel Date Noted: 08/28/2017 Neurogenic bladder Date Noted: 08/28/2017 Spinal cord injury at T8 level ([facility]) Date Noted: 08/15/2017 Paraplegia ([facility]) Date Noted: 08/08/2017 Pseudomonas pneumonia ([facility]) Date Noted: 08/08/2017 Immunosuppression ([facility]) Date Noted: 08/08/2017 Compression fracture of thoracic spine, non-traumatic (HCC) GERD (gastroesophageal reflux disease) History of histoplasmosis Osteopenia Sleep disorder Stage 3 chronic kidney disease ([facility]) Date Noted: 06/09/2017 Compression fracture Date Noted: 05/11/2015 Shortness of breath Date Noted: 05/11/2015 GI bleed Date Noted: 09/30/2014 Disseminated histoplasmosis Date Noted: 2014 Acute on chronic respiratory failure with hypoxia and hypercapnia ([facility]) Date Noted: 04/02/2014 Pancytopenia ([facility]) Date Noted: 03/31/2014 Osteoarthritis Date Noted: 03/21/2011 Paraesthesia of skin Date Noted: 03/19/2011 jail current use of systemic steroids Date Noted: 03/19/2011 Joint pain Date Noted: 12/17/2010 Encounter for long-term (current) use of high-risk medication Date Noted: 12/17/2010 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 Manifestations including ? eosinophilia, adult onset asthma, sinusitis, nasal polyps, DAH, mononeuritis multiplex. Patient was diagnosed with EGPA in 2001 after presenting with asthma, nasal polyps, allergic rhinitis, foot drop and DAH. He was initially treated with IV CTX and high dose steroids then continued on po Cytoxan for 4 additional years. After that pt was swtiched to MMF and MTX. Due to previous hematuria, he did have cystoscopy in 2009, which was negative. Pt was initially seen at Rheumatology clinic by [...] continued to follow with Dr. Putnam of [place] and is on voriconazole 200mg BID for histoplasmosis. He has an outside rocket engine tester, Dr. Fernandez, in [place], who is managing his asthma. His course has been complicated by GI bleeding in 09/2014 and in 12/2017 (s/p cauterization and iron therapy). Osteopenia previously treated with fosamax x 5 years (d/c'ed in 2011), then Forteo x 2 years and now currently on Fosamax again. From 12/2016-12/2017, pt had right lower extremity wounds whichdeveloped after fall down the stairs. 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 In 03/2017, patient was evaluated by Dr. Crawley of Nephrology because of hematuria. He did have dysmorphic RBC's on urine microscopy but no casts. Given that renal function has been stable and risk of histo, we have not pursued renal biopsy or escalated his immunosuppression. In early 2017, pt had a T8 spinal injury due to compression fracture (associated with steroid-induced osteoporosis) resulting in paraplegia and wheelchair-bound. INTERVAL HX: At today's visit Mr. Diaz states that he is feeling slightly worse. Pt is accompanied by his . Since office visit in December, pt has seen his rocket engine tester, Dr. Pedro Fernandez, in [place]. His inhalers were changed but pt reports he does not have any change in his SOB. The SOB still primarily occurs while lying down at night. He continues to takes 10mg (extra) prednisone when this happens along with his inhaler and states he then feels like he can breath better. He takes 15mg prednisone most days but 20mg on others. He described his SOB as not being able to take a deep breath. Pt states he is now having a more sinus drainage and uses saline irrigation almost every day. Reports occasional wheezing. Pt reports increased sleeping. For example, went to bed Friday and woke up Friday. Has been occurring since January. Seems to be increasing in frequency and duration. Uses CPAP nightly. His PCP has instructed him to go to ER next time to measure his CO2. Denies epistaxis or nasal crusting. Has baseline hearing loss he thinks is getting worse. Since last week, pt states if he turns head to right with eyes open, he gets dizzy (example lying in bed and then turns to right). Pt has numbness and tingling in B/L LE to level of sahu, which he thinks is getting worse. Denies cough. States while he was on IVIG has was never able to wean down prednisone under 15mg daily. SMALL/MEDIUM VESSEL VASCULITIS ROS: GENERAL: Negative for malaise, night sweats. +fatigue FEVER: None WEIGHT CHANGE: None. ENT: Negative for sinus tenderness, nasal crusting, epistaxis, bloody nasal drainage, ear pain, mouth lesions, voice changes. +decreased hearing, sore throat, (rare) difficulty swallowing EYES: No pain, redness, visual blurring, visual loss, diplopia, proptosis. RESPIRATORY: Negative for cough, sputum production, hemoptysis, pleuritic chest pain. +SOB, especially at night. +wheezing CARDIOVASCULAR: Negative for chest pain, palpitations, extremity claudication, digital ischemia, Raynaud's, peripheral edema. GASTROINTESTINAL: Negative for abdominal discomfort, BRBPR, black stools, change in bowel habit, vomiting, diarrhea. URINARY: Negative for dysuria, hematuria, frequency, incontinence. MUSCULOSKELETAL: Negative for joint swelling, back pain. +occasional pains in kness NEUROLOGIC: Negative for headache. +numbness, weakness, dizziness SKIN: Negative for rash, nodules, ulcers, soft tissue loss, itching, steroid induced acne. OTHER ROS: Otherwise 12 point ROS negative BONE HEALTH: Last Bone Density: 07/2016 Bone prophylaxis: Fosamax Treatment of osteoporosis: s/p Forteo, on Fosamax INFECTION PREVENTION: PJP prophylaxis: None Last influenza vaccination: 07/2017 Date of Prevnar: 05/2013 Date of Pneumovax: 07/2016, 06/2014 Current Outpatient Prescriptions: albuterol (ACCUNEB) 0.63 mg/3 mL nebulizer solution, Inhale 0.63 mg solution as directed every 6 hours as needed., Disp: , Rfl: budesonide/formoterol,+, (SYMBICORT) 160/4.5 mcg [...] mg by mouth daily., Disp: , Rfl: HYDROcodone/acetaminophen(+) (NORCO) 10/325 mg [...] mg by mouth daily., Disp: , Rfl: mirtazapine (REMERON) 30 mg tablet, Take 30 mg by mouth at bedtime daily., Disp: , Rfl: pantoprazole DR (PROTONIX) 40 mg tablet, Take 40 mg by mouth daily., Disp: , Rfl: potassium chloride(+) (KLOR-CON 8) 8 mEq tablet, Take 8 mEq by mouth daily. , Disp: , Rfl: prednisone (DELTASONE) 5 mg [...] minutes following the same meal each day. , Disp: , Rfl: teriparatide(+) (FORTEO) 20 mcg/dose - 600 mcg/2.4 mL pnij injection pen, Inject 20 mcg under the skin daily., Disp: , Rfl: Testosterone (ANDRODERM) 4 mg/24 hr pt24, Apply 1 Patch to top of skin as directed., Disp: , Rfl: traZODone (DESYREL) 100 mg tablet, Take 100 mg by mouth at bedtime daily., Disp: , Rfl: umeclidinium(+) (INCRUSE ELLIPTA) 62.5 mcg/actuation inhalation disk, Inhale 1 puff by mouth into the lungs daily., Disp: , Rfl: vitamins, B complex tab, Take 1 Tab by mouth daily., Disp: , Rfl: voriconazole (VFEND) 200 mg tablet, TAKE 1 TABLET BY MOUTH TWICE DAILY FOR 240 DAYS, Disp: 60 tablet, Rfl: 7 PHYSICAL EXAMINATION BP 134/71 (BP Source: Arm, Right Upper, Patient Position: Sitting) | Pulse 81 | Temp 36.7 C (98.1 F) (Oral) | Ht 177.8 cm (70") | Wt 86.2 kg (190 lb) Comment: per patient unable to weight due to w/c | SpO2 93% | BMI 27.26 kg/m GENERAL APPEARANCE: Alert, Using electronic wheelchair, cushingoid appearance SKIN: Normal without rashes or lesions, scars present. Multiple, scattered ecchymosis on arms EYES: Conjunctiva clear, PERRL, EOM normal. +Watering eyes EARS: External ears normal, TM's normal. Swollen ear canal NOSE/SINUSES: No sinus tenderness, nasal mucosal inflammation, nasal ulcers, nasal crusts, bloody nasal mucosa, septal deviation, septal perforation, saddle- nose deformity. Bonilla facie, B/L hearing aids, no nasal polyps, clear discharge in B/L nares OROPHARYNX: No oral lesions present, no oral ulcers. LUNGS: Clear. Decreased breath sounds. No crackles or wheezing HEART: RRR, no gallops, rubs or murmurs. ABDOMEN: Soft, non-tender, normal BS, no organomegaly or masses. MUSCULOSKELETAL: Paraplegia (2/5 LE), muscle atrophy of B/L UE NEURO: Paraplegia, muscle atrophy of B/L UE OTHER PHYSICAL EXAMINATION: None. LABS: CBC w/Diff [...] 05:58 AM ABC 0.00 09/28/2017 05:58 AM Comprehensive Metabolic Profile Lab Results Component Value Date/Time NA 139 01/19/2018 12:27 PM K 4.4 03/24/2018 09:24 AM CL 98 01/19/2018 12:27 PM CO2 29 01/19/2018 12:27 PM GAP 12 01/19/2018 12:27 PM BUN 18 03/24/2018 09:24 AM CR 0.6 03/24/2018 09:24 AM GLU 218 (H) 01/19/2018 12:27 PM Lab Results Component Value Date/Time CA 9.2 01/19/2018 12:27 PM PO4 4.5 (H) 09/24/2017 12:40 AM ALBUMIN 3.7 01/19/2018 12:27 PM TOTPROT 6.5 01/19/2018 12:27 PM ALKPHOS 153 03/24/2018 09:24 AM AST 10 03/24/2018 09:24 AM ALT 15 03/24/2018 09:24 AM TOTBILI 0.3 01/19/2018 12:27 PM GFR >60 01/19/2018 12:27 PM GFRAA >60 01/19/2018 12:27 PM Last ESR (12/2017): 21 Last CRP (12/2017): 1.18 Urine Lab Results Component Value Date/Time UCOLOR YELLOW 09/09/2017 12:16 PM TURBID CLEAR 09/09/2017 12:16 PM USPGR 1.029 09/09/2017 12:16 PM UPH 5.0 09/09/2017 12:16 PM UPROTEIN 1+ (A) 09/09/2017 12:16 PM UAGLU NEG 09/09/2017 12:16 PM UKET NEG 09/09/2017 12:16 PM UBILE NEG 09/09/2017 12:16 PM UBLD 1+ (A) 09/09/2017 12:16 PM UROB NORMAL 09/09/2017 12:16 PM Lab Results Component Value Date/Time UNIT NEG 09/09/2017 12:16 PM ULEU NEG 09/09/2017 12:16 PM UWBC 0-2 09/09/2017 12:16 PM URBC 2-10 09/09/2017 12:16 PM UCOMMENT Spun UA 05/11/2015 IMAGES: None ASSESSMENT: EGPA, ANCA negative Asthma jail steroid use Disseminated Histoplasmosis: on tx with Voriconazole, followed by ID Neuropathy, history of foot drop Osteoporosis with compression fracture s/p kyphopasty Hearing loss: followed by ENT and Audiology Right hemidiaphragm elevation with associated atelectasis, chronic OA Prior use of immunosupression: CTX, MTX, MMF H/o GI bleed x 2 Dizziness Impression: Mr. Diaz is being followed by rheumatology for EGPA and was seen today in the vasculitis clinic for the first time. Pt does seem to have subjective increased in sinus drainage, SOB, and neuropathy. Pt is on prednisone 15mg daily and additionally, almost daily, takes an extra 10mg, for a total of 25mg daily. This is a high dose of prednisone for maintenance therapy. Pt was previously on IVIG as an immunomodulator; however, while on IVIG prednisone was never able to be weaned down. Immunosuppressants are not an option due to disseminated histoplasmosis on chronic voriconazole therapy. Mepolizumab may be an option. However, before initiating this therapy we will first have the patient be evaluated by [facility] pulmonology to determine if nightly SOB is due to uncontrolled asthma. We will also discuss with pt's ID, Dr. Putnam, regarding risk of using a drug that targets eosinophils. We discussed with pt switching prednisone dose to 5mg every morning and continuing the 10mg every evening. This will allow the pt to take the prednisone at night when he feels most SOB, while decreasing the overall daily prednisone dose. PLAN: -Switch prednisone dose to 5mg in AM and 10mg in PM -Refer to [facility] pulm, Dr. Belcher, to determine if asthma is cause of nightly SOB -Will discuss with ID risk vs benefit of using mepolizumab in setting of disseminated histoplasmosis Consults: Pulm Monitoring: Every month Patient instructed to notify provider of any changes in medical condition. Follow-up: 1 month Patient seen by rheumatology fellow, America Gomez DO, PGY-4. 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 Steroid-induced osteoporosis Expected: 04/14/2018, Expires: 04/14/2019 COMPREHENSIVE METABOLIC PANEL Routine Eosinophilic granulomatosis with polyangiitis (EGPA) (HCC) Shortness of breath Disseminated histoplasmosis 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 Steroid-induced osteoporosis Expected: 04/14/2018, Expires: 04/14/2019 SED RATE Routine Eosinophilic granulomatosis with polyangiitis (EGPA) (HCC) Shortness of breath Disseminated histoplasmosis jail (current) use of systemic steroids Steroid-induced osteoporosis Expected: 04/14/2018, Expires: 04/14/2019 URINALYSIS DIPSTICK Routine Eosinophilic granulomatosis with polyangiitis (EGPA) (HCC) Shortness of breath Disseminated histoplasmosis jail (current) use of systemic steroids Steroid-induced osteoporosis Expected: 04/14/2018, Expires: 04/14/2019 URINALYSIS, MICROSCOPIC Routine Eosinophilic granulomatosis with polyangiitis (EGPA) (HCC) Shortness of breath Disseminated histoplasmosis 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 Steroid-induced osteoporosis Order Schedule Name Priority Associated Diagnoses Ordered: 04/14/2018 AMB REFERRAL TO PULMONARY Routine Eosinophilic granulomatosis with polyangiitis (EGPA) (HCC) Shortness of breath Asthma, unspecified asthma severity, unspecified whether complicated, unspecified whether persistent as of this encounter Visit Diagnoses Diagnosis Eosinophilic granulomatosis with polyangiitis (EGPA) (HCC) - Primary Shortness of breath Asthma, unspecified asthma severity, unspecified whether complicated, unspecified whether persistent Paraplegia (HCC) Paraplegia Spinal cord injury at T8 level, subsequent encounter (HCC) Disseminated histoplasmosis Histoplasmosis, unspecified without mention of manifestation jail (current) use of systemic steroids Steroid-induced osteoporosis Other osteoporosis in this encounter
--- OUTSIDE RECORDS SUMMARY | 2018-06-14 10:11 | XMS REPORT ---
Author Author FRANCISCO WILLIS [facility] Address [address] [place] [address] Care Team Providers Care Decorating Equipment Setter Name Role Phone FRANCISCO WILLIS Unavailable PROBLEMS Type Condition ICD9-CM Code [id number] Code Onset Dates Condition Status SNOMED Code Problem DTAP TEST V06.1 Active ALLERGIES No Information ENCOUNTERS Encounter Location Date Diagnosis [address] [address] Mar, Encounter for immunization Z23 [place] [address] [address] Dec, Encounter for screening for dental disorder Z13.84 and Visit for dental examination Z01.20 [place] [address] [address] Sep, Dental examination Z01.20 [place] [address] [address] Jul, Dental examination Z01.20 [facility] [address] [id number] Dec, Dental examination V72.2 [facility] [address] [id number] Nov, Dental examination V72.2 [facility] [address] [place] [id number] [place] [phone] October, Dental examination V72.2 [place] [address] [address] Jan, IMMUNIZATIONS Vaccine Route Administration Date Status FLULAVAL QUAD 0.5ML (6 MO & UP) 2018 IM Intramuscular Apr 28, 2018 Administered PCV 13 IM Intramuscular Apr 28, 2018 Administered SOCIAL HISTORY Never Assessed REASON FOR VISIT Immunization(s) PLAN OF CARE Activity Details Follow Up prn Reason: VITAL SIGNS MEDICATIONS Unknown Medications RESULTS No Results PROCEDURES Procedure Date Ordered Result Body Site FLULAVAL QUAD 0.5ML (6 MO AND UP) 2017Apr 28, 2018 PCV 13 Apr 28, 2018 IMMUNIZATION ADMIN, EACH ADD (please include units) Apr 28, 2018 SINGLE IMMUNIZATION ADMIN Apr 28, 2018 INSTRUCTIONS MEDICATIONS ADMINISTERED No Known Medications [...] surgeries Hospitalization History 17 days for histoplasmosis 2015 Hospitalization History for ulceration repair 4 days 2016 Hospitalization History 5 month hospitalization for spinal damage/pneumonia - 2018
[2018-06-14 10:20] LABS: BASOPHILS % (AUTO) 0 % (0-10); EOSINOPHILS % (AUTO) 0 % (0-10); HEMATOCRIT 39 % (40-54); HEMOGLOBIN 11.7 G/DL (13.3-17.7); LYMPHOCYTES # (AUTO) 1.3 X 10^3 (1.0-4.0); LYMPHOCYTES % (AUTO) 15 % (12-44); MEAN CORPUSCULAR HEMOGLOBIN 30 PG (25-34); MEAN CORPUSCULAR HGB CONC 30 G/DL (32-36); MEAN CORPUSCULAR VOLUME 100 FL (80-99); MEAN PLATELET VOLUME 9.4 FL (7.4-10.4); MONOCYTES # (AUTO) 0.8 X 10^3 (0.0-1.0); MONOCYTES % (AUTO) 9 % (0-12); NEUTROPHILS # (AUTO) 6.7 X 10^3 (1.8-7.8); NEUTROPHILS % (AUTO) 76 % (42-75); PLATELET COUNT 165 10^3/uL (130-400); RED BLOOD COUNT 3.87 10^6/uL (4.35-5.85); RED CELL DISTRIBUTION WIDTH 16.8 % (10.0-14.5); WHITE BLOOD COUNT 8.9 10^3/uL (4.3-11.0)
--- NOTE | 2018-06-14 10:36 | Diagnostic Imaging Report ---
INDICATION: Shortness of breath. Frontal chest obtained at 10:21 a.m. and is compared with 08/08/2017. FINDINGS: There is cardiomegaly. There is linear atelectatic change in both lung bases with elevation of the right hemidiaphragm. There is no pneumothorax or gross pleural fluid. IMPRESSION: Cardiomegaly. Linear atelectatic changes in both lung bases with unchanged elevation of right hemidiaphragm. Dictated by: Dictated on workstation # [id number]
[2018-06-14 10:38] LABS: ALANINE AMINOTRANSFERASE 17 U/L (0-55); ALBUMIN 3.7 GM/DL (3.2-4.5); ALKALINE PHOSPHATASE 164 U/L (40-136); BILIRUBIN,TOTAL 0.5 MG/DL (0.1-1.0); BUN/CREATININE RATIO 26; CALCIUM 9.3 MG/DL (8.5-10.1); CARBON DIOXIDE 31 MMOL/L (21-32); CHLORIDE 97 MMOL/L (98-107); CREATININE SERUM 0.69 MG/DL (0.60-1.30); GFR ESTIMATED > 60; GLUCOSE 118 MG/DL (70-105); POTASSIUM 3.5 MMOL/L (3.6-5.0); SODIUM 145 MMOL/L (135-145); TOTAL PROTEIN 6.8 GM/DL (6.4-8.2)
--- NOTE | 2018-06-14 11:15 | ED Respiratory ---
General Chief Complaint: Respiratory Problems Stated Complaint: SOB Nursing Triage Note: TO ED PER EMS FROM HOME PATIENT REPORTS HAS BEEN INCREASE IN SOA WITH COUGH CONGESTION SAO2 HAVE BEEN IN LOW 90'S AND HIGH 80'S. PLACED ON NON REBREATHER BY EMS [address] Source: patient, family Exam Limitations: no limitations History of Present Illness Date Seen by Provider: Jun 14, 2018 Time Seen by Provider: 11:10 Initial Comments The patient is a 63-year-old white male known to me. He has 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syndrome He reports that beginning yesterday he began to feel more short of breath. He has been noted to have a cough and is seemingly more congested. He has not run a fever. His face is red and the family believes that it is somewhat more so than yesterday. He feels the effort of breathing is greater. He takes 20 mg of prednisone daily. He has no use of both lower extremities. Timing/Duration: yesterday Prior Episodes/Possible Cause: occasional episodes Allergies and Home Medications Allergies Coded Allergies: No Known Drug Allergies (Unverified , 01/15/11) Home Medications Acetaminophen 500 Mg Tablet, 500 MG PO Q4H PRN for PAIN-MILD, (Reported) Albuterol Sulfate 2.5 Mg/3 Ml Vial.neb, 2.5 MG NEB QID PRN for SHORTNESS OF BREATH, (Reported) Albuterol/Ipratropium 4 Gm Aero, 1 PUFF IH QID PRN for SHORTNESS OF BREATH, ( Reported) Budesonide/Formoterol Fumarate 10.2 Gm Hfa.aer.ad, 2 PUFF IH BID, (Reported) Calcium Carbonate 500 Mg Tab.chew, 1,000 MG PO DAILY, (Reported) Cholecalciferol (Vitamin D3) 1,000 Unit Capsule, 1,000 UNIT PO BID, (Reported) Diltiazem HCl 180 Mg Capsule.er, 180 MG PO HS, (Reported) Hydrocodone/Acetaminophen 1 Each Tablet, 1 TAB PO Q4H PRN for PAIN-MODERATE, ( Reported) Losartan Potassium 25 Mg Tablet, 25 MG PO DAILY, (Reported) Multivitamin 1 Each Tablet, 1 TAB PO DAILY, (Reported) Pantoprazole Sodium 40 Mg Tablet.dr, 40 MG PO DAILY, (Reported) Sennosides 8.6 Mg Tablet, 8.6 MG PO HS PRN for CONSTIPATION-5TH LINE, (Reported) Teriparatide 600 Mcg/2.4 Ml Syr, 600 MCG SQ DAILY, (Reported) Testosterone 1 Each Patch.td24, 4 MG TD DAILY, (Reported) Umeclidinium Scott 62.5 Mcg Blst.w.dev, 1 PUFF IH DAILY, (Reported) Vitamin B Complex 1 Each Capsule, 1 CAP PO DAILY, (Reported) Voriconazole 200 Mg Tablet, 200 MG PO BID, (Reported) Patient Home Medication List Home Medication List Reviewed: Yes Review of Systems Review of Systems Constitutional: see HPI, weakness EENTM: no symptoms reported Respiratory: short of breath Cardiovascular: no symptoms reported Gastrointestinal: no symptoms reported Genitourinary: no symptoms reported Musculoskeletal: see HPI Skin: no symptoms reported Psychiatric/Neurological: No Symptoms Reported Hematologic/Lymphatic: No Symptoms Reported Past Yxtohlk-Wmxnmt-Bqhqeo Hx Patient Social History Alcohol Use: Denies Use Recreational Drug Use: No Smoking Status: Former Smoker Type Used: Cigarettes Former Smoker, Quit: Jun 30, 1992 Recent Foreign Travel: No Contact w/Someone Who Travel: No Recent Infectious Disease Expo: No Recent Hopitalizations: No Immunizations Up To Date Tetanus Booster (TDap): Less than 5yrs Date of Pneumonia Vaccine: Apr 16, 2016 Date of Influenza Vaccine: Apr 03, 2017 Seasonal Allergies Seasonal Allergies: Yes Past Medical History Surgeries: Yes (nasal polyps removal, several back surgery, tendon surgery in hand) Eye Surgery, Orthopedic Respiratory: Yes (churgg kunal syndrome) Asthma Currently Using CPAP: Yes Currently Using BIPAP: No Cardiac: Yes Hypertension Neurological: Yes Neuropathy Reproductive Disorders: No Sexually Transmitted Disease: No HIV/AIDS: No Genitourinary: No Gastrointestinal: Yes Gastroesophageal Reflux, Gastrointestinal Bleed, Diverticulosis Musculoskeletal: Yes (bone) Degenerate Disk Disease, Osteoporosis, Back Injury, Chronic Back Pain Endocrine: Yes Cataract Loss of Vision: Denies Hearing Impairment: Hearing Aide Right, Hearing Aide Left Cancer: No Psychosocial: No Integumentary: No Blood Disorders: No Adverse Reaction/Blood Tranf: No Family Medical History Arthritis 19 MOTHER Asthma 19 MOTHER Physical Exam Vital Signs - First Documented 06/14/18 10:04 Temp 97.1 Pulse 119 Resp 18 Pulse Ox 96 O2 Delivery Non Rebreather Capillary Refill : Less Than 3 Seconds Height: 5'10.00" Weight: 190lbs. 8.0oz. 86.890370pa; 27.7 BMI Method:Stated General Appearance: other (cushingoid) Eyes: Bilateral Eye Normal Inspection HEENT: normal ENT inspection Neck: full range of motion Respiratory: decreased breath sounds (distant without wheezing or rhonchi) Cardiovascular: normal peripheral pulses, regular rate, rhythm, no edema, no gallop, no JVD, no murmur Gastrointestinal: other (abdomen is quite large. Superficial veins are noted but not distended. I cannot clearly discern a fluid wave. 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 nml as tested, no motor/sensory deficits, alert, normal mood/affect, oriented x 3 Skin: normal color, warm/dry, cyanosis, cool, diaphoresis, damp Lymphatic: no adenopathy Procedures/Interventions Date of ETT Placement: Jul 21, 2017 Time of ETT Placement: 1324 Progress/Results/Core Measures Suspected Sepsis Recent Fever Within 48 Hours: No Infection Criteria Present: None New/Unexplained Altered Menta: No Sepsis Screen: No Definite Risk SIRS Temperature:97.1 Pulse: 119 Respiratory Rate: 18 Laboratory Tests 06/14/18 10:07: White Blood Count 8.9 Blood Pressure / Mean: Laboratory Tests 06/14/18 10:07: Creatinine 0.69, Platelet Count 165, Total Bilirubin 0.5 Results/Orders Lab Results Laboratory Tests Test 06/14/18 10:07 06/14/18 10:17 06/14/18 11:28 Range/Units White Blood Count 8.9 4.3-11.0 10^3/uL Red Blood Count 3.87 L 4.35-5.85 10^6/uL Hemoglobin 11.7 L 13.3-17.7 G/DL Hematocrit 39 L 40-54 % Mean Corpuscular Volume 100 H 80-99 FL Mean Corpuscular Hemoglobin 30 25-34 PG Mean Corpuscular Hemoglobin Concent 30 L 32-36 G/DL Red Cell Distribution Width 16.8 H 10.0-14.5 % Platelet Count 165 130-400 10^3/uL Mean Platelet Volume 9.4 7.4-10.4 FL Neutrophils (%) (Auto) 76 H 42-75 % Lymphocytes (%) (Auto) 15 12-44 % Monocytes (%) (Auto) 9 0-12 % Eosinophils (%) (Auto) 0 0-10 % Basophils (%) (Auto) 0 0-10 % Neutrophils # (Auto) 6.7 1.8-7.8 X 10^3 Lymphocytes # (Auto) 1.3 1.0-4.0 X 10^3 Monocytes # (Auto) 0.8 0.0-1.0 X 10^3 Eosinophils # (Auto) 0.0 0.0-0.3 10^3/uL Basophils # (Auto) 0.0 0.0-0.1 10^3/uL Sodium Level 145 135-145 MMOL/L Potassium Level 3.5 L 3.6-5.0 MMOL/L Chloride Level 97 L 98-107 MMOL/L Carbon Dioxide Level 31 21-32 MMOL/L Anion Gap 17 H 5-14 MMOL/L Blood Urea Nitrogen 18 7-18 MG/DL Creatinine 0.69 0.60-1.30 MG/DL Estimat Glomerular Filtration Rate > 60 BUN/Creatinine Ratio 26 Glucose Level 118 H 70-105 MG/DL Calcium Level 9.3 8.5-10.1 MG/DL Corrected Calcium 9.5 8.5-10.1 MG/DL Total Bilirubin 0.5 0.1-1.0 MG/DL Aspartate Amino Transf (AST/SGOT) 12 5-34 U/L Alanine Aminotransferase (ALT/SGPT) 17 0-55 U/L Alkaline Phosphatase 164 H 40-136 U/L Total Protein 6.8 6.4-8.2 GM/DL Albumin 3.7 3.2-4.5 GM/DL D-Dimer 0.71 H 0.00-0.49 UG/ML Urine Color YELLOW Urine Clarity VERY CLOUDY H Urine pH 6 5-9 Urine Specific Lawrence 1.010 L 1.016-1.022 Urine Protein 2+ H NEGATIVE Urine Glucose (UA) 4+ H NEGATIVE Urine Ketones NEGATIVE NEGATIVE Urine Nitrite POSITIVE H NEGATIVE Urine Bilirubin NEGATIVE NEGATIVE Urine Urobilinogen NORMAL NORMAL MG/DL Urine Leukocyte Esterase 3+ H NEGATIVE Urine RBC (Auto) 2+ H NEGATIVE Urine RBC NONE /HPF Urine WBC TNTC H /HPF Urine Crystals NONE /LPF Urine Bacteria LARGE H /HPF Urine Casts NONE /LPF Urine Mucus NEGATIVE /LPF Urine Culture Indicated YES My Orders Orders - GUSTAVO SALGADO MD Cbc With Automated Diff (06/14/18 10:10) Comprehensive Metabolic Panel (06/14/18 10:10) Ua Culture If Indicated (06/14/18 10:10) Chest 1 View, Ap/Pa Only (06/14/18 10:10) Fibrin Degradation Products (06/14/18 11:20) Urine Culture (06/14/18 11:28) Vital Signs/I&O 06/14/18 10:04 Temp 97.1 Pulse 119 Resp 18 B/P (MAP) Pulse Ox 96 O2 Delivery Non Rebreather Capillary Refill : Less Than 3 Seconds Departure Communication (Admissions) Given the patient's disease and sense of dyspnea the plan is to admit. Discussed the findings with Dr. Cortez hospitalist of the day Impression Primary Impression: 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syndrome with lung involvement Disposition: ADMITTED INPATIENT Condition: Unchanged Admissions Decision to Admit Reason: Admit from ER (General) Decision to Admit/Date: Jun 14, 2018 Time/Decision to Admit Time: 12:19 Departure-Patient Inst. Referrals: ERIC ADAM MD (PCP) Primary Care Physician GUSTAVO SALGADO MD Jun 14, 2018 11:15
[2018-06-14 11:38] LABS: BILIRUBIN,URINE NEGATIVE (NEGATIVE); CLARITY,URINE VERY CLOUDY; COLOR,URINE YELLOW; GLUCOSE, URINE (UA) 4+ (NEGATIVE); KETONES,URINE NEGATIVE (NEGATIVE); LEUKOCYTE ESTERASE ,URINE 3+ (NEGATIVE); NITRITE,URINE POSITIVE (NEGATIVE); PH,URINE 6 (5-9); PROTEIN,URINE 2+ (NEGATIVE); UROBILINOGEN,URINE NORMAL (NORMAL)
[2018-06-14 11:45] LABS: BACTERIA,URINE LARGE /HPF; WBC,URINE TNTC /HPF
[2018-06-14] MEDS ORDERED: PIPERACILLIN/TAZO 4.5 GM/NS 100 ML IV NR ×2 (13:30)
--- NOTE | 2018-06-14 13:38 | History & Physical-Hospitalist ---
History of Present Illness HPI/Chief Complaint this is a 63-year-old white male with a history of 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who presents with a 2-3 day history of increased swelling and respiratory distress. He denies having increased color to his sputum. He has been on his usual maintenance medications. Dr. Fernandez had seen him last week and thought he was doing fairly well. Chest x-ray shows cardiomegaly without an elevated white count and UA shows too numerous to count bacteria. The patient is currently on BiPAP and is unable to give any additional information other than the fact that he adamantly requests to be a DO NOT RESUSCITATE Source: patient, family Exam Limitations: clinical condition Date Seen 06/14/18 Time Seen by a Provider: 13:00 Attending Physician Caren Cortez MD PCP John Cox MD Referring Physician Date of Admission Jun 14, 2018 at 12:27 Home Medications & Allergies Home Medications Reviewed patient Home Medication Reconciliation performed by pharmacy medication reconciliations technician's helper and/or nursing. Patients Allergies have been reviewed. Allergies Allergies Coded Allergies No Known Drug Allergies (Unverified01/15/11) Past Wgqyjgx-Hedwux-Wpxzmq Hx Past Med/Social Hx: Reviewed Nursing Past Med/Soc Hx Patient Social History Marrital Status: Employed/Student: unemployed Alcohol Use: Denies Use Recreational Drug Use: No Smoking Status: Former Smoker Former Smoker, Quit: Jun 30, 1992 Type Used: Cigarettes Recent Foreign Travel: No Contact w/other who traveled: No Recent Hopitalizations: No Recent Infectious Disease Expo: No Immunizations Up To Date Tetanus Booster (TDap): Less than 5yrs Date of Pneumonia Vaccine: Apr 16, 2016 Date of Influenza Vaccine: Apr 03, 2017 Seasonal Allergies Seasonal Allergies: Yes Past Medical History Surgeries: Eye Surgery, Orthopedic 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Currently Using CPAP: Yes Currently Using BIPAP: No Cardiac: Hypertension Neurological: Neuropathy, Spinal Cord Injury (T7 spinal cord transection) Reproductive: No Sexually Transmitted Disease: No HIV/AIDS: No Gastrointestinal: Gastroesophageal Reflux, Gastrointestinal Bleed, Diverticulosis Musculoskeletal: Degenerate Disk Disease, Osteoporosis, Back Injury, Chronic Back Pain HEENT: Cataract Loss of Vision: Denies Hearing Impairment: Hearing Aide Right, Hearing Aide Left History of Blood Disorders: No Adverse Reaction to Blood Faria: No Family History Arthritis 19 MOTHER Asthma 19 MOTHER Review of Systems Constitutional: see HPI EENTM: no symptoms reported Respiratory: short of breath, wheezing Cardiovascular: no symptoms reported Gastrointestinal: no symptoms reported Genitourinary: no symptoms reported Musculoskeletal: back pain Skin: no symptoms reported Psychiatric/Neurological: No Symptoms Reported Physical Exam Physical Exam Vital Signs Vital Signs - First Documented 06/14/18 06/14/18 06/14/18 10:04 12:26 13:16 Temp 97.1 Pulse 119 Resp 18 B/P (MAP) 127/86 (100) Pulse Ox 96 O2 Delivery Non Rebreather O2 Flow Rate 100.00 Capillary Refill : Less Than 3 Seconds Height, Weight, BMI Height: 5'10.00" Weight: 190lbs. 8.0oz. 86.505117bv; 27.7 BMI Method:Stated General Appearance: Moderate Distress Neck: Limited Range of Motion Respiratory: Respiratory Distress, Wheezing (xpiratory) Cardiovascular: Tachycardia Gastrointestinal: Normal Bowel Sounds, No Organomegaly, Non Tender, Soft Rectal: Deferred Extremity: Other (flaccid paralysis lower extremities muscle wasting) Neurologic/Psychiatric: Alert, Oriented x3, Motor Weakness, Sensory Deficit Skin: Pallor Results Results/Procedures Labs Laboratory Tests 06/14/18 10:07 Patient resulted labs reviewed. 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 Fernandez will come in and see the patient in consultation we'll try to aggressively treat patient Admission Status: Inpatient Order (span 2 midnights) Reason for Inpatient Admission: respiratory failure and medically complicated patient will require over 2 nights hospitalization for treatment Critical Care Critically Ill Patient CAREN CORTEZ MD Jun 14, 2018 13:38
[2018-06-14] MEDS ORDERED: CATHETER FLUSH 10 ML SYR IV PRN (13:45)
[2018-06-14] MEDS ORDERED: CATHETER FLUSH 10 ML SYR IV SCH (14:00)
--- NOTE | 2018-06-14 14:24 | Pulmonary Consultation ---
History of Present Illness History of Present Illness Date of Consultation 06/14/18 14:19 Time Seen by Provider: 14:19 Date of Admission History of Present Illness 63yo with hx of 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syndrome presented to ED secondary to worsening respiratory distress. Pt was placed on BiPAP in the ED secondary to worsening respiratory distress. He has had multiple hospitalizations in the past for similar episodes. Pt is currently a DNR. I am consulted for pulmonary/ICU management. Allergies and Home Medications Allergies Coded Allergies: No Known Drug Allergies (Unverified , 01/15/11) Home Medications Acetaminophen 500 Mg Tablet, 500 MG PO Q4H PRN for PAIN-MILD, (Reported) Albuterol Sulfate 2.5 Mg/3 Ml Vial.neb, 2.5 MG NEB QID PRN for SHORTNESS OF BREATH, (Reported) Albuterol/Ipratropium 4 Gm Aero, 1 PUFF IH QID PRN for SHORTNESS OF BREATH, ( Reported) Budesonide/Formoterol Fumarate 10.2 Gm Hfa.aer.ad, 2 PUFF IH BID, (Reported) Calcium Carbonate 500 Mg Tab.chew, 1,000 MG PO DAILY, (Reported) Cholecalciferol (Vitamin D3) 1,000 Unit Capsule, 1,000 UNIT PO BID, (Reported) Diltiazem HCl 180 Mg Capsule.er, 180 MG PO HS, (Reported) Hydrocodone/Acetaminophen 1 Each Tablet, 1 TAB PO Q4H PRN for PAIN-MODERATE, ( Reported) Losartan Potassium 25 Mg Tablet, 25 MG PO DAILY, (Reported) Multivitamin 1 Each Tablet, 1 TAB PO DAILY, (Reported) Pantoprazole Sodium 40 Mg Tablet.dr, 40 MG PO DAILY, (Reported) Sennosides 8.6 Mg Tablet, 8.6 MG PO HS PRN for CONSTIPATION-5TH LINE, (Reported) Teriparatide 600 Mcg/2.4 Ml Syr, 600 MCG SQ DAILY, (Reported) Testosterone 1 Each Patch.td24, 4 MG TD DAILY, (Reported) Umeclidinium Williams 62.5 Mcg Blst.w.dev, 1 PUFF IH DAILY, (Reported) Vitamin B Complex 1 Each Capsule, 1 CAP PO DAILY, (Reported) Voriconazole 200 Mg Tablet, 200 MG PO BID, (Reported) Past Ovszawv-Btvzpi-Gaflzv Hx Past Med/Social Hx: Reviewed Nursing Past Med/Soc Hx Patient Social History Alcohol Use: Denies Use Recreational Drug Use: No Smoking Status: Former Smoker Type Used: Cigarettes Former Smoker, Quit: Jun 30, 1992 Recent Foreign Travel: No Contact w/Someone Who Travel: No Recent Infectious Disease Expo: No Recent Hopitalizations: No Immunizations Up To Date Tetanus Booster (TDap): Less than 5yrs Date of Pneumonia Vaccine: Apr 16, 2016 Date of Influenza Vaccine: Apr 03, 2017 Seasonal Allergies Seasonal Allergies: Yes Past Medical History Surgeries: Yes (nasal polyps removal, several back surgery, tendon surgery in hand) Eye Surgery, Orthopedic Respiratory: Yes (churgg kunal syndrome) Asthma Currently Using CPAP: Yes Currently Using BIPAP: No Cardiac: Yes Hypertension Neurological: Yes Neuropathy, Spinal Cord Injury (T7 spinal cord transection) Reproductive Disorders: No Sexually Transmitted Disease: No HIV/AIDS: No Genitourinary: No Gastrointestinal: Yes Gastroesophageal Reflux, Gastrointestinal Bleed, Diverticulosis Musculoskeletal: Yes (bone) Degenerate Disk Disease, Osteoporosis, Back Injury, Chronic Back Pain Endocrine: Yes Cataract Loss of Vision: Denies Hearing Impairment: Hearing Aide Right, Hearing Aide Left Cancer: No Psychosocial: No Integumentary: No Blood Disorders: No Adverse Reaction/Blood Tranf: No Family Medical History Arthritis 19 MOTHER Asthma 19 MOTHER Sepsis Event Evaluation Height, Weight, BMI Height: 5'10.00" Weight: 190lbs. 8.0oz. 86.188031gk; 27.7 BMI Method:Stated Exam Exam Vital Signs Date Time Temp Pulse Resp B/P (MAP) Pulse Ox O2 Delivery O2 Flow Rate FiO2 06/14/18 13:16 105 15 127/86 (100) 100 NIV Bilevel 06/14/18 12:26 115 18 99 100.00 06/14/18 10:04 97.1 119 18 96 Non Rebreather Height & Weight Height: 5'10.00" Weight: 190lbs. 8.0oz. 86.279510dt; 27.7 BMI Method:Stated General Appearance: Moderate Distress Neck: Limited Range of Motion Respiratory: Respiratory Distress, Wheezing (xpiratory) Cardiovascular: Tachycardia Capillary Refill: Less Than 3 Seconds Gastrointestinal: other (abdomen is quite large. Superficial veins are noted but not distended. I cannot clearly discern a fluid wave. 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
[2018-06-14] MEDS ORDERED: NS IV 1000 ML 1,000 ML IV SCH (14:30)
[2018-06-14] MEDS: methylPREDNISolone 125 MG (Solu-MEDROL) VIAL IVP SCH ×2 (14:38→22:14)
[2018-06-14] MEDS: NS IV 1000 ML 1,000 ML IV SCH (14:38)
[2018-06-14 14:46] LABS: ABG BASE EXCESS 12.2 MMOL/L (-2.5-2.5); ABG OXYGEN SATURATION 99 % (94-100); ABG PCO2 48 MMHG (35-45); ABG PO2 124 MMHG (79-93); ABG TCO2 37.6 MMOL/L (21.0-31.0)
[2018-06-14 14:48] LABS: ALLENS TEST YES-POS; INSPIRED O2 45%; PATIENT TEMP 99.5; VENTILATOR NO
[2018-06-14] MEDS: ENOXAPARIN 40 MG/0.4 ML (LOVENOX) SYR SC SCH (15:17)
[2018-06-14] MEDS ORDERED: LIDOCAINE UROJET 2% GEL 10 ML PKG TOP ONE (15:45)
[2018-06-14] MEDS ORDERED: ACETAMINOPHEN 500 MG TAB (TYLENOL) PO PRN (18:00)
[2018-06-14] MEDS ORDERED: SENNOSIDES 8.6 MG (SENOKOT) TAB PO PRN (18:00)
[2018-06-14] MEDS ORDERED: NON-FORMULARY MEDICATION 1 EA EA (Albuterol/Ipratropium (Combivent Respimat Inhal Spray) 1 IH PRN (18:00)
[2018-06-14] MEDS ORDERED: RT-ALBUTEROL SULF 2.5 MG/3 ML PRE-MIX VIAL IH PRN (18:00)
[2018-06-14] MEDS ORDERED: HYDROcodone/APAP 10 MG/325 MG (LORTAB) TAB PO PRN (18:00)
[2018-06-14] MEDS: RT-ALBUTEROL/IPRATROPIUM 3 ML (DUONEB) VIAL INH SCH ×2 (19:00→21:33)
[2018-06-14] MEDS: inSUlin ASPART (NovoLOG) 1 UNIT/0.01 ML (CHARGE PER UNIT) SC SCH (19:08)
[2018-06-14] MEDS ORDERED: VORICONAZOLE 200 MG PO SCH (21:00)
[2018-06-14] MEDS: RT-ADVAIR HFA 115/21 MCG PER PUFF IH SCH (21:33)
[2018-06-14] MEDS: DILTIAZEM 180 MG (CARDIZEM CD) CAP PO SCH (22:14)
[2018-06-14] MEDS: PIPERACILLIN SODIUM/TAZOBACTAM 4.5 GM in NS (IVPB) 100 ML IV SCH (22:15)
[2018-06-15] VITALS (20 sets, daily range): BP systolic 100–148; BP diastolic 52–96
[2018-06-15] MEDS: RT-ALBUTEROL/IPRATROPIUM 3 ML (DUONEB) VIAL INH SCH ×6 (01:14→23:04)
[2018-06-15 04:04] LABS: BASOPHILS % (AUTO) 0 % (0-10); EOSINOPHILS % (AUTO) 0 % (0-10); HEMATOCRIT 35 % (40-54); HEMOGLOBIN 10.8 G/DL (13.3-17.7); LYMPHOCYTES # (AUTO) 0.3 X 10^3 (1.0-4.0); LYMPHOCYTES % (AUTO) 5 % (12-44); MEAN CORPUSCULAR HEMOGLOBIN 30 PG (25-34); MEAN CORPUSCULAR HGB CONC 31 G/DL (32-36); MEAN CORPUSCULAR VOLUME 99 FL (80-99); MEAN PLATELET VOLUME 9.3 FL (7.4-10.4); MONOCYTES # (AUTO) 0.2 X 10^3 (0.0-1.0); MONOCYTES % (AUTO) 3 % (0-12); NEUTROPHILS # (AUTO) 6.6 X 10^3 (1.8-7.8); NEUTROPHILS % (AUTO) 93 % (42-75); PLATELET COUNT 144 10^3/uL (130-400); RED BLOOD COUNT 3.56 10^6/uL (4.35-5.85); RED CELL DISTRIBUTION WIDTH 16.3 % (10.0-14.5); WHITE BLOOD COUNT 7.2 10^3/uL (4.3-11.0)
[2018-06-15 04:21] LABS: BUN/CREATININE RATIO 34; CALCIUM 9.3 MG/DL (8.5-10.1); CARBON DIOXIDE 29 MMOL/L (21-32); CHLORIDE 97 MMOL/L (98-107); CREATININE SERUM 0.73 MG/DL (0.60-1.30); GFR ESTIMATED > 60; GLUCOSE 178 MG/DL (70-105); MAGNESIUM 1.8 MG/DL (1.8-2.4); PHOSPHORUS 4.6 MG/DL (2.3-4.7); POTASSIUM 3.8 MMOL/L (3.6-5.0); SODIUM 146 MMOL/L (135-145)
[2018-06-15 04:24] LABS: ABG BASE EXCESS 8.9 MMOL/L (-2.5-2.5); ABG OXYGEN SATURATION 99 % (94-100); ABG PCO2 40 MMHG (35-45); ABG PH 7.52 (7.37-7.43); ABG PO2 111 MMHG (79-93); ABG TCO2 33.7 MMOL/L (21.0-31.0)
[2018-06-15 04:26] LABS: ALLENS TEST YES-POS; INSPIRED O2 40%; PATIENT TEMP 98.1; VENTILATOR NO
[2018-06-15] MEDS: PIPERACILLIN SODIUM/TAZOBACTAM 4.5 GM in NS (IVPB) 100 ML IV SCH ×3 (04:30→20:50)
--- NOTE | 2018-06-15 04:41 | Pulmonary Progress Note ---
KEVAN LUNSFORD MED STUDENT 06/15/18 0441: Subjective Date Seen by a Provider: Jun 15, 2018 Time Seen by a Provider: 04:35 Subjective/Events-last exam Patient reports no overnight events. Is feeling subjectively better, SOB improved. Would like to go home. Sepsis Event Evaluation Height, Weight, BMI Height: 5'10.00" Weight: 178lbs. 1.0oz. 80.746262sy; 25.6 BMI Method:Stated Focused Exam Respiratory: Chest Non Tender, Normal Breath Sounds, Wheezing, Other (on bipap) Cardiovascular: Regular Rate, Rhythm, No Murmur Skin: normal color, warm/dry Exam Exam Vital Signs Date Time Temp Pulse Resp B/P (MAP) Pulse Ox O2 Delivery O2 Flow Rate FiO2 06/15/18 04:00 87 18 104/69 (81) 99 NIV Bilevel 40.00 06/15/18 03:32 85 13 98 35.00 06/15/18 03:00 70 24 120/70 (87) 97 NIV Bilevel 40.00 06/15/18 02:00 78 14 113/75 (88) 97 NIV Bilevel 40.00 06/15/18 01:14 74 19 96 35.00 06/15/18 01:00 79 18 122/65 (84) 97 NIV Bilevel 40.00 06/15/18 01:00 77 06/15/18 00:00 73 21 115/80 (92) 97 NIV Bilevel 40.00 06/14/18 23:26 80 15 96 35.00 06/14/18 23:00 84 18 115/73 (87) 94 NIV Bilevel 40.00 06/14/18 22:00 95 17 133/89 (104) NIV Bilevel 40.00 06/14/18 21:33 97 12 35.00 06/14/18 21:00 94 23 116/94 (101) 98 NIV Bilevel 40.00 06/14/18 20:00 98 NIV Bilevel 40.00 06/14/18 20:00 90 26 123/93 (103) 98 NIV Bilevel 40.00 06/14/18 19:00 93 06/14/18 19:00 93 23 121/84 (96) 97 NIV Bilevel 40.00 06/14/18 19:00 96 13 98 40.00 06/14/18 18:00 93 14 124/90 (101) 100 NIV Bilevel 40.00 06/14/18 17:30 94 10 119/97 (104) 99 NIV Bilevel 40.00 06/14/18 17:00 84 24 131/86 (101) 100 NIV Bilevel 40.00 06/14/18 16:40 99.2 06/14/18 16:09 93 98 40.00 06/14/18 16:00 94 17 115/78 (90) 98 NIV Bilevel 40.00 06/14/18 15:30 106 19 135/97 (110) NIV Bilevel 40.00 06/14/18 15:30 106 19 135/97 (110) NIV Bilevel 40.00 06/14/18 15:15 98 15 127/87 (100) 99 NIV Bilevel 45.00 06/14/18 15:15 98 15 127/87 (100) 99 NIV Bilevel 45.00 06/14/18 15:00 94 14 127/71 (89) 98 NIV Bilevel 45.00 06/14/18 15:00 94 14 127/71 (89) 98 NIV Bilevel 45.00 06/14/18 14:45 104 27 111/69 (83) 98 NIV Bilevel 45.00 06/14/18 14:45 104 27 111/69 (83) 98 NIV Bilevel 45.00 06/14/18 14:30 108 20 150/90 (110) 100 NIV Bilevel 45.00 06/14/18 14:30 108 20 150/90 (110) 100 NIV Bilevel 45.00 06/14/18 14:24 107 06/14/18 14:15 99.5 97 14 150/90 (110) 100 NIV Bilevel 45.00 06/14/18 14:15 118 60.00 06/14/18 14:11 100 NIV Bilevel 45.00 06/14/18 13:58 100 45 129/83 (98) 100 NIV Bilevel 06/14/18 13:16 105 15 127/86 (100) 100 NIV Bilevel 06/14/18 12:26 115 18 99 100.00 06/14/18 10:04 97.1 119 18 96 Non Rebreather I & O 06/15/18 07:00 Intake Total 920 ml Output Total 1050 ml Balance -130 ml Height & Weight Height: 5'10.00" Weight: 178lbs. 1.0oz. 80.095077dm; 25.6 BMI Method:Stated General Appearance: No Apparent Distress, WD/WN, Other (on bipap) Neck: Normal Inspection, Supple, Limited Range of Motion Respiratory: Chest Non Tender, No Accessory Muscle Use, Wheezing (xpiratory) Cardiovascular: Regular Rate, Rhythm, No Murmur Capillary Refill: Less Than 3 Seconds Gastrointestinal: non tender Neurologic/Psychiatric: Alert, Oriented x3, Motor Weakness, Sensory Deficit Skin: Normal Color, Warm/Dry, Pallor Results Lab Laboratory Tests 06/14/18 10:07 06/15/18 03:40 Assessment/Plan Assessment/Plan Acute on chronic respiratory failure -BiPAP currently 15/5 at 35% -Try switch to nasal canula, advance diet Atelectasis Chronic 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-Diagnosed 2008 -Sees rheumatology at [facility] for management -Plan to start Nucala (mepolizumab, IL-5 inhibitor) in the coming weeks UTI -Continue zosyn Hx of T7 spinal cord transection with paralysis -PT consult History of disseminated histoplasmosis History of pseudomonas pneumonia MEDINA VILLEGAS DO 06/15/18 0546: Subjective Time Seen by a Provider: 05:41 Subjective/Events-last exam Pt appears to be doing better this morning. Exam Exam General Appearance: No Apparent Distress, WD/WN, Other (on bipap) Neck: Limited Range of Motion Respiratory: Chest Non Tender, No Accessory Muscle Use, Wheezing (xpiratory) Cardiovascular: Regular Rate, Rhythm, No Murmur Gastrointestinal: non tender Neurologic/Psychiatric: Alert, Oriented x3, Motor Weakness, Sensory Deficit Skin: Normal Color, Warm/Dry, Pallor Assessment/Plan Assessment/Plan Acute on chronic respiratory failure -BiPAP currently 15/5 at 35% -Try switch to nasal canula, advance diet Atelectasis Chronic 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-Diagnosed 2008 -Sees rheumatology at [facility] for management -Plan to start Nucala (mepolizumab, IL-5 inhibitor) in the coming weeks -decrease Solumedrol to 40 Q6 UTI -Continue zosyn Hx of T7 spinal cord transection with paralysis -PT consult History of disseminated histoplasmosis History of pseudomonas pneumonia KEVAN LUNSFORD MED STUDENT Jun 15, 2018 04:41 MEDINA VILLEGAS DO Jun 15, 2018 05:46
[2018-06-15] MEDS ORDERED: MAGNESIUM 1 GM/100 ML IVPB 100 ML IV SCH (06:00)
[2018-06-15] MEDS ORDERED: POTASSIUM CL 10MEQ/50ML IVPB 50 ML IV SCH (06:00)
[2018-06-15] MEDS ORDERED: KCL 20 MEQ TAB (K-DUR) PO SCH (06:00)
[2018-06-15] MEDS: inSUlin ASPART (NovoLOG) 1 UNIT/0.01 ML (CHARGE PER UNIT) SC SCH ×5 (06:58→21:38)
[2018-06-15] MEDS: PANTOPRAZOLE 40 MG (PROTONIX) TAB PO SCH (06:58)
[2018-06-15] MEDS: methylPREDNISolone 40 MG/ML (Solu-MEDROL) VIAL IV SCH ×3 (07:03→18:33)
[2018-06-15] MEDS: RT-ADVAIR HFA 115/21 MCG PER PUFF IH SCH ×2 (07:25→19:02)
--- NOTE | 2018-06-15 07:33 | Diagnostic Imaging Report ---
INDICATION: Shortness of breath. COMPARISON: 06/14/2018. FINDINGS: Single view of the chest demonstrates unchanged bibasilar atelectasis. Heart is prominent without pulmonary edema. There is no pneumothorax or large effusion. IMPRESSION: Unchanged bibasilar atelectasis. Dictated by: Dictated on workstation # [id number]
[2018-06-15] MEDS ORDERED: UMECLIDINIUM BROMIDE (INCRUSE ELLIPTA) 7'S IH SCH (08:00)
--- NOTE | 2018-06-15 08:01 | Progress Note-Hospitalist ---
Subjective HPI/CC On Admission Date Seen by Provider: Jun 15, 2018 Time Seen by Provider: 08:01 this is a 63-year-old white male with a history of 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who presents with a 2-3 day history of increased swelling and respiratory distress. He denies having increased color to his sputum. He has been on his usual maintenance medications. Dr. Fernandez had seen him last week and thought he was doing fairly well. Chest x-ray shows cardiomegaly without an elevated white count and UA shows too numerous to count bacteria. The patient is currently on BiPAP and is unable to give any additional information other than the fact that he adamantly requests to be a DO NOT RESUSCITATE Subjective/Events-last exam Pt reports feeling much better. Objective Exam Vital Signs Vital Signs Date Time Temp Pulse Resp B/P (MAP) Pulse Ox O2 Delivery O2 Flow Rate FiO2 06/15/18 14:42 96 Nasal Cannula 5.00 06/15/18 14:30 99.8 93 20 122/58 (79) Capillary Refill : Less Than 3 Seconds General Appearance: No Apparent Distress, Chronically ill Respiratory: No Accessory Muscle Use, No Respiratory Distress, Wheezing Cardiovascular: Regular Rate, Rhythm, No Murmur Gastrointestinal: Normal Bowel Sounds, Soft Neurologic/Psychiatric: Alert, Oriented x3 Results/Procedures Lab Laboratory Tests 06/15/18 03:40 Patient resulted labs reviewed. 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- on 6lpm during day and 8lpm at night urinary tract infection- Continue Zosyn await c/s T7 spinal cord transection with paralysis- PT/OT consulted History of disseminated histoplasmosis- continue voriconazole History of pseudomonas pneumonia Critical Care Critical Care: Critically Ill Patient Diagnosis/Problems Diagnosis/Problems (1) Acute respiratory failure Status: Acute Qualifiers: Respiratory failure complication: hypercapnia Qualified Codes: J96.02 - Acute respiratory failure with hypercapnia (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
[2018-06-15] MEDS ORDERED: LOSARTAN 25 MG (COZAAR) TAB PO SCH (09:00)
[2018-06-15] MEDS ORDERED: TERIPARATIDE 600 MCG/2.4 ML (FORTEO) SYR SQ SCH (09:00)
[2018-06-15] MEDS ORDERED: TESTOSTERONE 4 MG TD SCH (09:00)
[2018-06-15] MEDS: VITAMIN D3 1,000 UNITS (CHOLECALCIFEROL) TABLET PO SCH ×2 (09:01→21:39)
[2018-06-15] MEDS: NS IV 1000 ML 1,000 ML IV SCH (12:10)
[2018-06-15] MEDS ORDERED: ATOR20TA66 PO (12:43)
[2018-06-15] MEDS ORDERED: DIPH1TAB25 PO (12:45)
[2018-06-15] MEDS ORDERED: FINA5TAB6 PO (12:45)
[2018-06-15] MEDS ORDERED: FOLI1TAB24 PO (12:46)
[2018-06-15] MEDS ORDERED: EMPA1TAB7 PO (12:48)
[2018-06-15] MEDS ORDERED: TAMS0.4C2 PO (12:49)
[2018-06-15] MEDS ORDERED: VENL75CA93 PO (12:50)
[2018-06-15] MEDS ORDERED: GABA-490 PO (12:52)
[2018-06-15] MEDS ORDERED: MIRT15TA6 PO (12:56)
[2018-06-15] MEDS ORDERED: METH5TAB86 PO (12:56)
[2018-06-15] MEDS ORDERED: CHOL10003 PO (13:00)
[2018-06-15] MEDS ORDERED: DIPH25TA31 PO (13:01)
[2018-06-15] MEDS: GABAPENTIN 400 MG (NEURONTIN) CAP PO SCH ×2 (13:15→21:43)
--- NOTE | 2018-06-15 15:11 | Physical Therapy Evaluation ---
PT Evaluation-General Medical Diagnosis Admission Date Jun 14, 2018 at 12:27 Medical Diagnosis: 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Syndrome Onset Date: Jun 14, 2018 Therapy Diagnosis Therapy Diagnosis: generalized weakness Height/Weight Height (Feet): 5 Height (Inches): 10.00 Weight (Pounds): 178 Weight (Ounces): 1.0 Precautions Precautions/Isolations: Fall Prevention, Standard Precautions, Pressure Ulcer Weight Bear Status Right Lower Extremity: Right Non Weight Bearing Left Lower Extremity: Left Non Weight Bearing Referral Physician: Rebecca Reason for Referral: Evaluation/Treatment Medical History Pertinent Medical History: GERD, Neuropathy Additional Medical History T7 spinal cord transection with paralysis Current History EMS to home after increase SOA Reviewed History: Yes Social History Home: Multilevel Current Living Status: Spouse Entry Into Home: Ramp Prior/Core FIM Prior Level of Function Therapy Code Descriptions/Definitions Functional [place] Measure: 0=Not Assessed/NA 4=Minimal Assistance 1=Total Assistance 5=Supervision or Setup 2=Maximal Assistance 6=Modified [place] 3=Moderate Assistance 7=Complete [place] Therapy Quality Codes: 6 Independent with activity with or without an assistive device 5 Patient requires set up or clean up by helper. Patient completes activity by themselves 4 Supervision or touching assist (CGA). [place] provide cues , steadying assist 3 The helper provides less than half the effort to complete the activity 2 The helper provides more than half the effort to complete the activity 1 Dependent. The helper does all the effort to complete an activity 7 Patient refused to complete or attempt activity 9 The patient did not perform the activity before the current illness or injury 88 Not attempted due to Medical conditions or safety concerns Functional Abilities and Goals: Independent: Patient completed the activities by him/herself, with or without an assistive device, with no assistance from a helper. Needed Some Help: Patient needed partial assistance from another person to complete activities. Dependent: A helper completed the activities for the patient. Unknown: Not Applicable: Bed Mobility: 2 Transfers (B,C,W/C) (FIM): 1 Indoor Mobility (Ambulation): Dependent Stairs: Dependent Prior Devices Use: Mechanical lift, Motorized wheelchair PT Evaluation-Current Subjective Patient is very agreeable to participate with PT. Pain Numeric Pain Scale: 0-No Pain Location: No Pain Reported Objective Patient Orientation: Normal For Age Problem Solving: Good Attachments: Oxygen, Garcia Catheter, IV ROM/Strength ROM Lower Extremities bilateral LE WFL Strength Lower Extremities 2-/5 grossly bilaterally Integumentary/Posture Integumentary refer to nursing notes Bowel Incontinence: Yes Bladder Incontinence: Garcia Cath Posture WFL Neuromuscular (Tone, Coordination, Reflexes) diminished tone, coordination and reflexes due to diagnosis Sensory Vision: Wears Glasses Hearing: Functional Sensation Right Lower Extremit: Impaired Sensation Left Lower Extremity: Impaired Transfers Therapy Code Descriptions/Definitions Functional [place] Measure: 0=Not Assessed/NA 4=Minimal Assistance 1=Total Assistance 5=Supervision or Setup 2=Maximal Assistance 6=Modified [place] 3=Moderate Assistance 7=Complete [place] Transfers (B, C, W/C) (FIM): 1 Scootin Rollin Supine to/from Sit: 3 Balance Standing Static: Normal Standing Dynamic: Normal Assessment/Needs 55 y.o. male, will benefit from skilled PT to address functional strength and mobility to improve current LOF. Patient utilizes a jeff lift at home for transfers and commode use. Rehab Potential: Fair PT [facility] Goals [facility] Goals PT [facility] Goals Time Frame: Jun 27, 2018 Transfers (B,C,W/C) (FIM): 1 PT Plan Problem List Problem List: Functional Strength, Transfer, Bed Mobility Treatment/Plan Treatment Plan: Continue Plan of Care Treatment Plan: Bed Mobility, Education, Functional Activity [place], Functional Strength, Safety, Therapeutic Exercise, Transfers Treatment Duration: Jun 27, 2018 Frequency: 6 times per week Estimated Hrs Per Day: .5 hour per day (15-30 min) Patient and/or Family Agrees t: Yes Discharge Recommendations Therapy D/C Recommendations: Home w/ Family Support Time/GCodes Time In: 1430 Time Out: 1500 Total Billed Treatment Time: 30 Total Billed Treatment 1 visit [facility] 30 min LYLA BLOUNT PT Jun 15, 2018 15:11
[2018-06-15] MEDS: ENOXAPARIN 40 MG/0.4 ML (LOVENOX) SYR SC SCH (15:17)
[2018-06-15] MEDS ORDERED: NON-FORMULARY MEDICATION 1 EA EA (Diphenoxylate HCl/Atropine (Diphenoxylate-Atrop 2.5-0.02 PO PRN (15:30)
[2018-06-15] MEDS ORDERED: diphenhydrAMINE 25 MG TAB (BENADRYL) PO PRN (15:30)
[2018-06-15] MEDS ORDERED: DIPHENOXYLATE/ATROPINE 2.5MG/0.025MG (LOMOTIL) TAB PO PRN (15:45)
[2018-06-15] MEDS ORDERED: PATIENT MAY USE OWN MEDS, ALL MC SCH (20:00)
[2018-06-15] MEDS ORDERED: VORICONAZOLE 200 MG TAB (VFEND) NON-FORMULARY PO SCH (20:30)
[2018-06-15] MEDS ORDERED: TAMSULOSIN 0.4 MG (FLOMAX) CAP PO SCH (21:00)
[2018-06-15] MEDS ORDERED: NON-FORMULARY MEDICATION 1 EA EA (Mirtazapine 7.5 MG) PO SCH (21:00)
[2018-06-15] MEDS ORDERED: ATORVASTATIN 20 MG (LIPITOR) TABLET PO SCH (21:00)
[2018-06-15] MEDS ORDERED: MIRTAZAPINE 15 MG (REMERON) TAB PO SCH (21:00)
[2018-06-15] MEDS: DILTIAZEM 180 MG (CARDIZEM CD) CAP PO SCH (21:39)
[2018-06-15] MEDS ORDERED: BUMETANIDE 1 MG (BUMEX) TAB ONE (23:34)
[2018-06-16] VITALS: BP 112/56
[2018-06-16] MEDS: methylPREDNISolone 40 MG/ML (Solu-MEDROL) VIAL IV SCH ×2 (00:02→07:06)
[2018-06-16] MEDS: RT-ALBUTEROL/IPRATROPIUM 3 ML (DUONEB) VIAL INH SCH ×2 (02:30→06:36)
[2018-06-16] MEDS: PIPERACILLIN SODIUM/TAZOBACTAM 4.5 GM in NS (IVPB) 100 ML IV SCH (03:59)
[2018-06-16 04:00] VITALS: BP 113/58
[2018-06-16 04:07] LABS: BASOPHILS % (AUTO) 0 % (0-10); EOSINOPHILS % (AUTO) 0 % (0-10); HEMATOCRIT 32 % (40-54); HEMOGLOBIN 9.8 G/DL (13.3-17.7); LYMPHOCYTES # (AUTO) 0.4 X 10^3 (1.0-4.0); LYMPHOCYTES % (AUTO) 5 % (12-44); MEAN CORPUSCULAR HEMOGLOBIN 31 PG (25-34); MEAN CORPUSCULAR HGB CONC 31 G/DL (32-36); MEAN CORPUSCULAR VOLUME 100 FL (80-99); MEAN PLATELET VOLUME 9.4 FL (7.4-10.4); MONOCYTES # (AUTO) 0.3 X 10^3 (0.0-1.0); MONOCYTES % (AUTO) 4 % (0-12); NEUTROPHILS # (AUTO) 6.4 X 10^3 (1.8-7.8); NEUTROPHILS % (AUTO) 91 % (42-75); PLATELET COUNT 139 10^3/uL (130-400); RED BLOOD COUNT 3.21 10^6/uL (4.35-5.85); RED CELL DISTRIBUTION WIDTH 16.2 % (10.0-14.5); WHITE BLOOD COUNT 7.1 10^3/uL (4.3-11.0)
[2018-06-16 04:24] LABS: BUN/CREATININE RATIO 29; CALCIUM 8.6 MG/DL (8.5-10.1); CARBON DIOXIDE 29 MMOL/L (21-32); CHLORIDE 101 MMOL/L (98-107); CREATININE SERUM 0.78 MG/DL (0.60-1.30); GFR ESTIMATED > 60; GLUCOSE 289 MG/DL (70-105); POTASSIUM 3.3 MMOL/L (3.6-5.0); SODIUM 147 MMOL/L (135-145)
--- NOTE | 2018-06-16 06:55 | Pulmonary Progress Note ---
KEVAN LUNSFORD MED STUDENT 06/16/18 0655: Subjective Date Seen by a Provider: Jun 16, 2018 Time Seen by a Provider: 06:54 Subjective/Events-last exam Patient reports no overnight events. He is feeling much better and would like to go home. Reports no pain this am. Sepsis Event Evaluation Height, Weight, BMI Height: 5'10.00" Weight: 188lbs. 1.0oz. 85.248310lm; 25.6 BMI Method:Stated Focused Exam Respiratory: Chest Non Tender, Lungs Clear Cardiovascular: Regular Rate, Rhythm, No Murmur Exam Exam Vital Signs Date Time Temp Pulse Resp B/P (MAP) Pulse Ox O2 Delivery O2 Flow Rate FiO2 06/16/18 06:36 74 20 95 35.00 06/16/18 02:30 78 22 88 35.00 06/16/18 00:15 70 19 92 30.00 06/16/18 00:00 98.1 98 18 112/56 (74) 95 High Flow N/C 3.00 06/15/18 23:10 70 25 95 30.00 06/15/18 23:04 96 Nasal Cannula 3.00 06/15/18 20:00 99.1 77 19 119/58 (78) 96 High Flow N/C 3.00 06/15/18 20:00 High Flow N/C 3.00 06/15/18 19:02 95 Nasal Cannula 3.00 06/15/18 16:00 99.1 77 18 134/65 (88) 96 High Flow N/C 3.00 06/15/18 14:42 96 Nasal Cannula 5.00 06/15/18 14:30 98 High Flow N/C 5.00 06/15/18 14:30 99.8 93 20 122/58 (79) 97 High Flow N/C 5.00 06/15/18 14:00 109 25 115/69 (84) 97 High Flow N/C 6.00 06/15/18 13:33 80 06/15/18 13:00 108 16 134/81 (98) 94 High Flow N/C 6.00 06/15/18 12:43 93 06/15/18 12:00 99 11 113/80 (91) 97 High Flow N/C 6.00 06/15/18 12:00 98 NIV Bilevel 35.00 06/15/18 11:22 98 Nasal Cannula 7.00 06/15/18 11:00 99 23 115/70 (85) 98 High Flow N/C 6.00 06/15/18 10:00 93 32 100/75 (83) 94 High Flow N/C 6.00 06/15/18 09:00 96 25 130/77 (94) 95 High Flow N/C 6.00 06/15/18 08:00 98.4 High Flow N/C 6.00 06/15/18 08:00 98 NIV Bilevel 35.00 06/15/18 08:00 75 28 108/69 (82) 100 High Flow N/C 6.00 06/15/18 07:24 100 High Flow N/C 7.00 06/15/18 07:08 80 06/15/18 07:00 73 36 128/81 (97) 100 High Flow N/C 6.00 I & O 06/16/18 07:00 Intake Total 2390 ml Output Total 3201 ml Balance -811 ml Height & Weight Height: 5'10.00" Weight: 188lbs. 1.0oz. 85.285753wx; 25.6 BMI Method:Stated General Appearance: No Apparent Distress, Chronically ill Neck: Limited Range of Motion Respiratory: Chest Non Tender, Lungs Clear, No Accessory Muscle Use, Other (on bipap) Cardiovascular: Regular Rate, Rhythm, No Murmur Capillary Refill: Less Than 3 Seconds Gastrointestinal: non tender Neurologic/Psychiatric: Alert, Oriented x3 Skin: Normal Color, Warm/Dry, Pallor Results Lab Laboratory Tests 06/14/18 10:07 06/15/18 03:40 06/16/18 03:40 Assessment/Plan Assessment/Plan Acute on chronic respiratory failure -Sleeps with BiPAP, current setting is 13/5 at 35, O2 saturation 98 -Did well yesterday on 3L O2 via nasal canula (O2 sat 95-98) Atelectasis -bibasalar -IS Chronic 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-Diagnosed 2008 -Sees rheumatology at [facility] for management -Plan to start Nucala (mepolizumab, IL-5 inhibitor) in the coming weeks -decrease Solumedrol to 40 Q6 UTI -Continue zosyn -last fever was yesterday at 1430 Hx of T7 spinal cord transection with paralysis -PT consult History of disseminated histoplasmosis -continue voriconazole History of pseudomonas pneumonia MEDINA VILLEGAS DO 06/16/18 0751: Subjective Time Seen by a Provider: 07:49 Subjective/Events-last exam PT appears to be doing better. Exam Exam General Appearance: No Apparent Distress, Chronically ill Neck: Limited Range of Motion Respiratory: Chest Non Tender, Lungs Clear, No Accessory Muscle Use Capillary Refill: Less Than 3 Seconds Gastrointestinal: non tender Neurologic/Psychiatric: Alert, Oriented x3 Skin: Normal Color, Warm/Dry Assessment/Plan Assessment/Plan Acute on chronic respiratory failure -BiPAP QHS and PRN -Pt has home machine -Did well yesterday on 3L O2 via nasal canula (O2 sat 95-98) Atelectasis -bibasalar -IS Chronic 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-Diagnosed 2008 -Sees rheumatology at [facility] for management -Plan to start Nucala (mepolizumab, IL-5 inhibitor) in the coming weeks -decrease Solumedrol to 40 Q12 UTI -Continue zosyn -last fever was yesterday at 1430 Hx of T7 spinal cord transection with paralysis -PT consult History of disseminated histoplasmosis -continue voriconazole History of pseudomonas pneumonia KEVAN LUNSFORD MED STUDENT Jun 16, 2018 06:55 MEDINA VILLEGAS DO Jun 16, 2018 07:51
[2018-06-16] MEDS: inSUlin ASPART (NovoLOG) 1 UNIT/0.01 ML (CHARGE PER UNIT) SC SCH (07:06)
[2018-06-16] MEDS: PANTOPRAZOLE 40 MG (PROTONIX) TAB PO SCH (07:06)
[2018-06-16 08:00] VITALS: BP 103/52
[2018-06-16] MEDS ORDERED: FOLIC ACID 1 MG TAB PO SCH (09:00)
[2018-06-16] MEDS ORDERED: FINASTERIDE (PROSCAR) 5 MG TAB PO SCH (09:00)
[2018-06-16] MEDS ORDERED: BUMETANIDE 1 MG (BUMEX) TAB PO SCH (09:00)
[2018-06-16] MEDS ORDERED: PRD50T PO (09:11)
[2018-06-16] MEDS ORDERED: TAMS0.4C2 PO (09:53)
--- NOTE | 2018-06-16 10:04 | Physical Therapy Progress Note ---
Therapy Progress Note Patient dismissing to home on this date and will continue with home health PT. LYLA BLOUNT PT Jun 16, 2018 10:04
[2018-06-16 11:05] VITALS: BP 103/52
[2018-06-16] MEDS ORDERED: methylPREDNISolone 40 MG/ML (Solu-MEDROL) VIAL IV SCH (21:00)
--- NOTE | 2018-06-18 08:40 | Discharge Summary-Hospitalist ---
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 (3) Paralysis Status: Chronic (4) Essential (primary) hypertension (5) Diabetes mellitus Status: Chronic Discharge Summary Discharge Physical Exam Allergies: Coded Allergies: No Known Drug Allergies (Unverified , 06/14/18) Vitals & I&Os Vital Signs Date Time Temp Pulse Resp B/P (MAP) Pulse Ox O2 Delivery O2 Flow Rate FiO2 06/16/18 11:05 62 18 103/52 96 Room Air 06/16/18 08:00 98.8 3.00 General Appearance: No Apparent Distress Respiratory: Chest Non Tender, Lungs Clear, Normal Breath Sounds, No Accessory Muscle Use, No Respiratory Distress Cardiovascular: Regular Rate, Rhythm, No Edema, No Gallop, No JVD, No Murmur, Normal Peripheral Pulses Hospital Course Patient presented to the emergency room with a several day history of increased shortness of breath. It increases oxygen level was 6 L and he was still having saturations in the mid to low 80s. He denied night sweats chills or fever did have some increase in cough. He was noted to be hypoxic in the emergency room. Breathing treatments were initiated and while the patient did not have classic findings for bacterial pneumonia broad-spectrum antibiotics were initiated as he does have a past history of Pseudomonas pneumonia. He was transferred to the intensive care unit where he required BiPAP. Echocardiogram was obtained revealing no significant abnormalities LV function was preserved with an estimated ejection fraction around 60 percent and pulmonary artery pressures were estimated around 30 mmHg with no significant valvular abnormalities. Solu-Medrol was initiated with some exacerbations patient's underlying type II diabetes mellitus requiring insulin. Shortness of breath improved with discharge chest x-ray were still revealing some mild by basilar atelectasis. He was off BiPAP maintaining saturations participating with physical therapy stating that he felt much better. He was discharged to take 40 mg of prednisone for 2 days 30 mg for 2 days then 20 mg daily the dose I will see him back in the office on in 1-2 weeks. Previously he had gotten down to about 13 mg of prednisone daily. He does have a history of 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syndrome but eosinophil count REMAINED normal. He is going to be initiating one of the new biologic medications for 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monthly injection that he' ll receive at outpatient surgery. Labs (last 24 hrs) Microbiology 06/14/18 MRSA Screen - Final, Complete MRSA not isolated 06/14/18 Urine Culture - Final, Complete See Report Patient resulted labs reviewed. Imaging: Reviewed Imaging Report Discussion & Recommendations Discharge Planning: >30 minutes discharge planning Discharge Home Medications: Active Scripts Active Tamsulosin HCl 0.4 Mg Cap.er.24h 0.4 Mg PO WITH EVENING MEAL 30 Days Prednisone 50 Mg Tab 40 Mg PO DAILY 2 Days Reported Diphenhydramine HCl 25 Mg Tablet 25 Mg PO HS PRN Vitamin D3 (Cholecalciferol (Vitamin D3)) 1,000 Unit Tablet 1,000 Unit PO DAILY Mirtazapine 15 Mg Tablet 7.5 Mg PO HS Methylphenidate HCl 5 Mg Tablet 5 Mg PO DAILY PRN PRN Gabapentin 400 Mg Capsule 400 Mg PO TID Venlafaxine HCl ER (Venlafaxine HCl) 75 Mg Cap.er.24h 75 Mg PO Synjardy 12.5-1,000 mg Tablet (Empagliflozin/Metformin HCl) 1 Each Tablet 2 Each PO WITH MORNING MEAL Folic Acid 1 Mg Tablet 1 Mg PO DAILY Finasteride 5 Mg Tablet 5 Mg PO DAILY Diphenoxylate-Atrop 2.5-0.025 (Diphenoxylate HCl/Atropine) 1 Each Tablet 2 Each PO ONCE PRN Atorvastatin Calcium 20 Mg Tablet 20 Mg PO HS Daily Multiple Vitamin (Multivitamin) 1 Each Tablet 1 Tab PO DAILY Senokot (Sennosides) 8.6 Mg Tablet 8.6 Mg PO HS PRN Acetaminophen Extra Strength (Acetaminophen) 500 Mg Tablet 500 Mg PO Q4H PRN Combivent Respimat Inhal [place] (Albuterol/Ipratropium) 4 Gm Aero 1 Puff IH QID PRN Androderm (Testosterone) 1 Each Patch.td24 4 Mg TD DAILY Hydrocodon-Acetaminophn 10-325 (Hydrocodone/Acetaminophen) 1 Each Tablet 1 Tab PO Q4H PRN Vitamin B Complex 1 Each Capsule 1 Cap PO DAILY Calcium (Calcium Carbonate) 500 Mg Tab.chew 1,000 Mg PO DAILY Voriconazole 200 Mg Tablet 200 Mg PO BID Pantoprazole Sodium 40 Mg Tablet.dr 40 Mg PO DAILY Instructions to patient/family Please see electronic discharge instructions given to patient. 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
== END 2018-06-16 11:05 | disposition home or self-care (01) | DRG 189 ==
LOC: EDUNIT# 10:04 → ER 10:05 → ICU 12:27 → 4TH 06-15 14:28
PROVIDERS: ADMIT Internal Medicine; ATTEND Family Medicine
DX: J96.22 Acute and chronic respiratory failure with hypercapnia (principal); M30.1 Polyarteritis with lung involvement [Churg-Strauss]; J98.11 Atelectasis; N39.0 Urinary tract infection, site not specified; E24.2 Drug-induced Cushing's syndrome; G82.20 Paraplegia, unspecified; J45.909 Unspecified asthma, uncomplicated; Z66 Do not resuscitate; S24.103S Unspecified injury at T7-T10 level of thoracic spinal cord, sequela; E11.9 Type 2 diabetes mellitus without complications; K21.9 Gastro-esophageal reflux disease without esophagitis; M81.0 Age-related osteoporosis without current pathological fracture; M54.9 Dorsalgia, unspecified; G62.9 Polyneuropathy, unspecified; Z87.891 Personal history of nicotine dependence; Z87.01 Personal history of pneumonia (recurrent); Z86.19 Personal history of other infectious and parasitic diseases; Z79.4 Long term (current) use of insulin; Z97.4 Presence of external hearing-aid; Z79.52 Long term (current) use of systemic steroids
CPT/HCPCS: 36415; 71045; 80048; 80053; 81000; 82805; 82962; 83735; 83880; 84100; 85025; 85379; 87081; 87088; 93306; 94640; 94660

== ENCOUNTER → 2018-07-08 | Outpatient (CLI) | payer OTHER ==
[~2018-07-08] MED LIST changes: +ATOR20TA66 PO; +CHOL10003 PO; +DIPH1TAB25 PO; +DIPH25TA31 PO; +EMPA1TAB7 PO; +FINA5TAB6 PO; +FOLI1TAB24 PO; +GABA-490 PO; +METH5TAB86 PO; +MIRT15TA6 PO; +PRD50T PO; +TAMS0.4C2 PO; +VENL75CA93 PO
== END ==
LOC: WOUNDCARE 12:43
PROVIDERS: ATTEND Surgery
DX: L97.222 Non-pressure chronic ulcer of left calf with fat layer exposed (principal); M30.1 Polyarteritis with lung involvement [Churg-Strauss]; G82.22 Paraplegia, incomplete; L89.322 Pressure ulcer of left buttock, stage 2; L97.121 Non-pressure chronic ulcer of left thigh limited to breakdown of skin; L98.491 Non-pressure chronic ulcer of skin of other sites limited to breakdown of skin; C44.319 Basal cell carcinoma of skin of other parts of face
CPT/HCPCS: 99215

== ENCOUNTER → 2018-07-13 | Outpatient (CLI) | payer OTHER | LOC: WOUNDCARE 13:00 | PROVIDERS: ATTEND Surgery | DX: L97.222 Non-pressure chronic ulcer of left calf with fat layer exposed (principal); M30.1 Polyarteritis with lung involvement [Churg-Strauss]; G82.22 Paraplegia, incomplete; L89.322 Pressure ulcer of left buttock, stage 2; L97.121 Non-pressure chronic ulcer of left thigh limited to breakdown of skin; L98.491 Non-pressure chronic ulcer of skin of other sites limited to breakdown of skin; C44.319 Basal cell carcinoma of skin of other parts of face | CPT/HCPCS: 11042 ==

== ENCOUNTER → 2018-07-20 | Outpatient (CLI) | payer OTHER ==
[~2018-07-20] MED LIST changes: +LOSA25TA41 PO; -LOSA25TA6 PO; +METH-288 PO; +ONDA4TAB11 SL; +PRD10T PO; +TEST1PAT13 TD; +VENL150C98 PO
== END ==
LOC: WOUNDCARE 12:50
PROVIDERS: ATTEND Surgery
DX: L97.222 Non-pressure chronic ulcer of left calf with fat layer exposed (principal); M30.1 Polyarteritis with lung involvement [Churg-Strauss]; G82.22 Paraplegia, incomplete; L97.121 Non-pressure chronic ulcer of left thigh limited to breakdown of skin; L98.491 Non-pressure chronic ulcer of skin of other sites limited to breakdown of skin
CPT/HCPCS: 11042

== ENCOUNTER 2018-07-22 11:20 | Day surgery (SDC) | payer OTHER ==
[~2018-07-22] VITALS: Ht 177.8 cm; Wt 80.7 kg
[2018-07-22 11:40] VITALS: BP 139/83
[2018-07-22] MEDS ORDERED: LACTATED RINGERS 1,000 ML IV PRN (11:43)
[2018-07-22] MEDS ORDERED: ceFAZolin 2 GM IV Premixed 50 ML IV ONE (11:45)
--- NOTE | 2018-07-22 11:59 | Progress Note-Pre Operative ---
Pre-Operative Progress Note H&P Reviewed The H&P was reviewed, patient examined and no changes noted. Date Seen by Provider: Jul 14, 2018 Time Seen by Provider: 13:00 Date H&P Reviewed: Jul 22, 2018 Time H&P Reviewed: 11:58 Pre-Operative Diagnosis: Skin lesion-left rastafari ANA ROSA VALDEZ MD Jul 22, 2018 11:59
[2018-07-22] MEDS ORDERED: CATHETER FLUSH 10 ML SYR IV PRN (12:00)
[2018-07-22] MEDS ORDERED: ONDANSETRON 4 MG/2 ML (SDV) Z0FRAN ONE (12:05)
[2018-07-22] MEDS ORDERED: proPOfol 200 MG/20 ML (DIPRIVAN) VIAL IV ONE (12:05)
[2018-07-22] MEDS ORDERED: LIDOCAINE PF 2% 5 ML (XYLOCAINE) VIAL ONE (12:05)
[2018-07-22] MEDS ORDERED: fentaNYL INJECTION 100 MCG/2 ML AMP ONE (12:06)
[2018-07-22] MEDS ORDERED: MIDAZOLAM 2 MG/2 ML (VERSED) VIAL ONE (12:06)
[2018-07-22] MEDS ORDERED: SEVOFLURANE (ULTANE) 15 ML INHAL SOLN ONE ×4 (12:10→13:22)
--- NOTE | 2018-07-22 12:47 | Discharge Inst-Simple/Standard ---
Discharge Inst-Standard Discharge Medications New, Converted or Re-Newed RX: Other Patient Instructions/Follow Up Plan of Care/Instructions/FU: to use hydrocodone from his home medications. Follow-up with my nurse in 10 days for suture Activity as Tolerated: Yes Discharge Diet: No Restrictions ANA ROSA VALDEZ MD Jul 22, 2018 12:47
[2018-07-22] MEDS ORDERED: BUP/EPI 0.5% 1:200,000 (SENSORCAINE) 30 ML VIAL ONE (12:49)
[2018-07-22] MEDS ORDERED: PHENYLEPHRINE INJ 10 MG/ML (NEO-SYNEPHRINE 1%) ONE (13:06)
[2018-07-22] MEDS ORDERED: PHENYLEPHRINE 100 MCG/ML 10 ML (ANESTHESIA) SYR ONE (13:07)
[2018-07-22] MEDS ORDERED: fentaNYL INJECTION 100 MCG/2 ML AMP IVP ONE (14:00)
[2018-07-22] MEDS ORDERED: ONDANSETRON 4 MG/2 ML (SDV) Z0FRAN IVP PRN (14:00)
--- NOTE | 2018-07-22 14:06 | Operative Report ---
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 He was offered prompt excision with frozen section to confirm the diagnosis and ensure negative margins. Informed consent was obtained after reviewing the operative details and complications of hematoma, wound infection etc. Description of the procedure: He was placed supine on the operating table and general anesthesia induced. Ancef was administered intravenously as prophylaxis against wound infection. Left anglican was prepared and draped in the usual sterile manner. Preemptive analgesia was established using 0.5 percent Marcaine with epinephrine An elliptical incision about 7 cm in length by 4 cm in width was made and the lesion excised down to the muscle layer. It was oriented with silk sutures and sent for frozen section analysis. The pathologist confirmed a squamous cell carcinoma with negative margins. Hemostasis was achieved using ligaclips and cautery. The incision was then closed using interrupted 4-0 and 5-0 nylon sutures. Steri-Strips and a nonadherent dressing were then applied. He tolerated the procedure well, was extubated in the operating room and taken to the recovery room in a stable condition. Findings of the Procedure See op report Allergies and Home Medications Allergies Coded Allergies: No Known Drug Allergies (Unverified , 06/14/18) Home Medications Acetaminophen 500 Mg Tablet, 500 MG PO Q4H PRN for PAIN-MILD, (Reported) Albuterol/Ipratropium 4 Gm Aero, 1 PUFF IH QID PRN for SHORTNESS OF BREATH, ( Reported) Atorvastatin Calcium 20 Mg Tablet, 20 MG PO HS, (Reported) Calcium Carbonate 500 Mg Tab.chew, 1,000 MG PO DAILY, (Reported) Cholecalciferol (Vitamin D3) 1,000 Unit Tablet, 1,000 UNIT PO DAILY, (Reported) Diphenhydramine HCl 25 Mg Tablet, 25 MG PO HS PRN for SLEEP, (Reported) Diphenoxylate HCl/Atropine 1 Each Tablet, 2 EACH PO ONCE PRN for [place]ARRHEA, ( Reported) Empagliflozin/Metformin HCl 1 Each Tablet, 2 EACH PO WITH MORNING MEAL, ( Reported) Finasteride 5 Mg Tablet, 5 MG PO DAILY, (Reported) Folic Acid 1 Mg Tablet, 1 MG PO DAILY, (Reported) Gabapentin 400 Mg Capsule, 400 MG PO TID, (Reported) Hydrocodone/Acetaminophen 1 Each Tablet, 1 TAB PO Q4H PRN for PAIN-MODERATE, ( Reported) Methylphenidate HCl 10 Mg Tablet, 10 MG PO 0800,1600, (Reported) Mirtazapine 15 Mg Tablet, 7.5 MG PO HS, (Reported) TAKE 1/2 OF 15MG TAB Multivitamin 1 Each Tablet, 1 TAB PO DAILY, (Reported) Ondansetron 4 Mg Tab.rapdis, 4 MG SL Q6H PRN for NAUSEA/VOMITING, (Reported) Pantoprazole Sodium 40 Mg Tablet.dr, 40 MG PO DAILY, (Reported) Prednisone 10 Mg Tab, 10 MG PO UD, (Reported) Sennosides 8.6 Mg Tablet, 8.6 MG PO HS PRN for CONSTIPATION-5TH LINE, (Reported) Tamsulosin HCl 0.4 Mg Cap.er.24h, 0.4 MG PO DAILy@supper time, (Reported) Daily until stone passage Testosterone 1 Each Patch.td24, 4 MG TD DAILY, (Reported) Venlafaxine HCl 150 Mg Cap.er.24h, 150 MG PO DAILY, (Reported) Vitamin B Complex 1 Each Capsule, 1 CAP PO DAILY, (Reported) Voriconazole 200 Mg Tablet, 200 MG PO BID, (Reported) Patient Home Medication List Home Medication List Reviewed: Yes ANA ROSA VALDEZ MD Jul 22, 2018 14:06
[2018-07-22 14:50] VITALS: BP 119/66
--- OUTSIDE RECORDS SUMMARY | 2018-07-22 15:15 | XMS REPORT | Encounter Summary ---
Author Author [facility] Organization [facility] Address Unknown Phone Unavailable Care Team Providers Care Tso Name Role Phone Cliff Lima MD Unavailable [...] PCP Reason for Visit * Reason Comments Appointment Request Encounter Details Care Team Description Date Type Department Pedro Feldman MD [address] [facility] [address] [place] [address] Appointment Request 07/21/2018 Telephone [facility] [place] [id number] [address] [place] [address] Social History Date Tobacco Use [...] encounter Miscellaneous Notes * Telephone Encounter - Pedro Feldman MD - 07/21/2018 7:59 AM OBSTETRICS NURSE I would like to follow Mr Diaz closely. He has a very complex history. I would like to see him within the next month. Please find an urgent slot (fine to put in vasculitis clinic) and if you cannot please let me know. Thanks, Pedro Feldman MD MS ETRICS NURSE * Telephone Encounter - Lukasz Rosario RN - 07/21/2018 7:16 AM OBSTETRICS NURSE Pt sent Saperion message below. CARMELINA note stated, "Follow-up: 2 months" Routing to Dr. Feldman for review and recommendations ETRICS NURSE * Telephone Encounter - Lukasz Rosario RN - 07/21/2018 7:16 AM OBSTETRICS NURSE Regarding: FW: Visit Follow-Up Question Contact: ----- Message ----- From: Lanre Diaz Sent: 07/18/2018 5:33 PM To: [facility] Nurse Subject: Visit Follow-Up Question ----- Message from Quinton Price sent at 07/18/2018 5:33 PM OBSTETRICS NURSE ----- Mila Feldman, On our last visit, you had mentioned us returning on Aug.04. but on My Chart, there are no future appointments listed at the [facility]. When would you like for us to return? A couple weeks ago, I received my first shot of Nucala. Everything went well. Thank you for your suggestion and help in this new direction in hopefully reducing my prednisone. -Lanre Diaz ETRICS NURSE in this encounter Plan of Treatment Not on fileas of this encounter Visit Diagnoses Not on filein this encounter
--- OUTSIDE RECORDS SUMMARY | 2018-07-22 15:15 | XMS REPORT | Clinical Summary ---
Author Author [facility] Organization [facility] Address Unknown Phone Unavailable Care Team Providers Care Chemist Water Purification Name Role Phone Cliff Lima MD Unavailable [...] in the Health Information Management department at [phone] for further assistance in locating additional records.[facility] Allergies No Known Allergies Medications End Date [...] 03/31/2014 Osteoarthritis 03/21/2011 Paraesthesia of skin 03/19/2011 detention current use of systemic steroids 03/19/2011 Joint pain 12/17/2010 Encounter for long-term (current) use of high-risk medication 12/17/2010 detention (current) use of systemic steroids 12/17/2010 Vasculitis 12/17/2010 Peripheral edema 12/17/2010 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 Compression fracture of thoracic spine, non-traumatic GERD (gastroesophageal reflux disease) History of histoplasmosis Osteopenia Sleep disorder Resolved Problems Problem Noted Date Resolved Date Sepsis 2014 06/09/2017 Encounters Care Team Description Date Type Specialty Pedro Feldman MD Appointment Request 07/21/2018 Telephone Rheumatology Pedro Feldman MD General Question ([facility]) 06/10/2018 Telephone Rheumatology Vani Boyd MD New Patient 06/02/2018 Telephone Neurosurgery Pedro Feldman MD Infusion Therapy 06/02/2018 Telephone Rheumatology Pedro Feldman MD 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 Infectious Diseases Antibiotic Therapy Pedro Feldman MD 05/11/2018 Orders Only Rheumatology Pedro Feldman MD Medication Follow-up (Nucala) 04/27/2018 Telephone Rheumatology from Last 3 Months Immunizations Name Dates [...] Taken Vital Sign Reading 05/29/2018 2:42 PM SAFETY DEPOSIT SUPERVISOR Blood Pressure 134/88 05/29/2018 2:42 PM SAFETY DEPOSIT SUPERVISOR Pulse 117 05/29/2018 2:42 PM SAFETY DEPOSIT SUPERVISOR Temperature 36.7 C (98.1 F) 05/29/2018 2:42 PM SAFETY DEPOSIT SUPERVISOR Respiratory Rate 20 05/29/2018 2:42 PM SAFETY DEPOSIT SUPERVISOR Oxygen Saturation 97% - Inhaled Oxygen - Concentration 05/29/2018 2:42 PM SAFETY DEPOSIT SUPERVISOR Weight 88.9 kg (196 lb) 05/29/2018 2:42 PM SAFETY DEPOSIT SUPERVISOR Height 177.8 cm (5' 10") 05/29/2018 2:42 PM SAFETY DEPOSIT SUPERVISOR Body Mass Index 28.12 Plan of Treatment Health Maintenance Due Date Last Done Comments HEPATITIS C SCREENING 1955 PHYSICAL (COMPREHENSIVE) 1962 EXAM DTAP/TDAP VACCINES (1 - 1973 Tdap) COLORECTAL CANCER 2005 SCREENING SHINGLES RECOMBINANT 2005 VACCINE (1 of 2) INFLUENZA VACCINE 01/28/2018 08/01/2017 HIV SCREENING Completed 04/02/2014 Implants Device Identifier Shelf Expiration Date Model / Serial / Lot Implanted Type Area [facility] [id number] 07/30/2020 [id number] / NA / [id number] Filter Embolization Jugular Vena Vena Cava CR BARD Cava Delivery Kit Otter Tail - Sna Implanted: Qty: 1 on 08/11/2017 by Vadim Davison MD Procedures Comments Procedure Name Priority Date/Time Associated Diagnosis HISTOPLASMA AG, SERUM Routine 05/29/2018 10:05 AM SAFETY DEPOSIT SUPERVISOR VORICONAZOLE LC-MS/MS Routine 05/29/2018 10:05 AM SAFETY DEPOSIT SUPERVISOR BUN Routine 05/29/2018 10:05 AM SAFETY DEPOSIT SUPERVISOR ALT (SGPT) Routine 05/29/2018 10:05 AM SAFETY DEPOSIT SUPERVISOR AST (SGOT) Routine 05/29/2018 10:05 AM SAFETY DEPOSIT SUPERVISOR POTASSIUM Routine 05/29/2018 10:05 AM SAFETY DEPOSIT SUPERVISOR ALK PHOS TOTAL Routine 05/29/2018 10:05 AM SAFETY DEPOSIT SUPERVISOR CREATININE Routine 05/29/2018 10:05 AM SAFETY DEPOSIT SUPERVISOR from Last 3 Months Results * VORICONAZOLE LC-MS/MS (05/29/2018 10:05 AM SAFETY DEPOSIT SUPERVISOR) Voriconazole, Serum 2.8 ug/mL OTHER OUTSIDE LAB Specimen Blood Narrative Performed At Performing Organization Address City/State/Zipcode Phone Number OTHER OUTSIDE LAB * HISTOPLASMA AG, SERUM (05/29/2018 10:05 AM SAFETY DEPOSIT SUPERVISOR) Narrative Performed At Performing Organization Address City/State/Zipcode Phone Number IN CLINIC * BUN (05/29/2018 10:05 AM SAFETY DEPOSIT SUPERVISOR) Blood Urea Nitrogen 12 OTHER OUTSIDE LAB Specimen Blood - Blood Performing Organization Address City/State/Zipcode Phone Number OTHER OUTSIDE LAB * ALT (SGPT) (05/29/2018 10:05 AM SAFETY DEPOSIT SUPERVISOR) ALT (SGPT) 16 OTHER OUTSIDE LAB Specimen Blood - Blood Performing Organization Address City/State/Zipcode Phone Number OTHER OUTSIDE LAB * AST (SGOT) (05/29/2018 10:05 AM SAFETY DEPOSIT SUPERVISOR) AST (SGOT) 10 OTHER OUTSIDE LAB Specimen Blood - Blood Performing Organization Address City/State/Zipcode Phone Number OTHER OUTSIDE LAB * POTASSIUM (05/29/2018 10:05 AM SAFETY DEPOSIT SUPERVISOR) Potassium 4.2 OTHER OUTSIDE LAB Specimen Blood - Blood Performing Organization Address City/State/Zipcode Phone Number OTHER OUTSIDE LAB * ALK PHOS TOTAL (05/29/2018 10:05 AM SAFETY DEPOSIT SUPERVISOR) Alk Phosphatase 140 OTHER OUTSIDE LAB Specimen Blood - Blood Performing Organization Address City/State/Zipcode Phone Number OTHER OUTSIDE LAB * CREATININE (05/29/2018 10:05 AM SAFETY DEPOSIT SUPERVISOR) Creatinine 0.6 OTHER OUTSIDE LAB Specimen Blood - Blood Narrative Performed At Performing Organization Address City/State/Zipcode Phone Number OTHER OUTSIDE LAB from Last 3 Months Insurance Payer Benefit Subscriber ID Type Phone Address Plan / Group GENERIC COMMERCIAL GENERIC xxxxxxxxxxx COMMERCIAL (OON) Advance Directives Patient has advance care planning documents, and code status on file. For more information, please contact: [facility] [place] [facility] [address] [place] [address] Date Inactivated Comments Code Status Date Activated [...]
--- OUTSIDE RECORDS SUMMARY | 2018-07-22 15:15 | XMS REPORT | Encounter Summary ---
Author Author [facility] Organization [facility] Address Unknown Phone Unavailable Care Team Providers Care Socket Welder Helper Name Role Phone Cliff Lima MD Unavailable [...] Date Type Department Vani Boyd MD [address] [facility] [address] [place] [address] New Patient 06/02/2018 Telephone Spine Center Neurosurgery Jeffrey Conway MD [facility] [address] [place] [address] Social History Date Tobacco Use [...]
--- OUTSIDE RECORDS SUMMARY | 2018-07-22 15:15 | XMS REPORT | Encounter Summary ---
Author Author [facility] Organization [facility] Address Unknown Phone Unavailable Care Team Providers Care Track Laying Equipment Operator Name Role Phone Cliff Lima MD Unavailable [...] Date Type Department Pedro Feldman MD [address] [facility] [address] [place] [address] General Question ([facility]) 06/10/2018 Telephone [facility] Physicians-Rheumatology [facility] [place] [address] Social History Date Tobacco Use [...] Lukasz Rosario RN - 06/10/2018 3:33 PM CLIENT SERVICE REPRESENTATIVE [facility] called and lvm asking for any ins info about pt. They gave this as a call back number [phone] Called and spoke with pt's navneet who stated she would call her ins company to see what was going on and I stated wouldn't give them any information unless I heard differently NT SERVICE REPRESENTATIVE in this encounter Plan of Treatment Not on fileas of this encounter Visit Diagnoses Not on filein this encounter
--- OUTSIDE RECORDS SUMMARY | 2018-07-22 15:16 | XMS REPORT | Encounter Summary ---
Author Author [facility] Organization [facility] Address Unknown Phone Unavailable Care Team Providers Care Heavy Mobile Equipment Repairer Name Role Phone Cliff Lima MD Unavailable [...] Date Type Department Pedro Feldman MD [address] [facility] [address] [place] [address] Infusion Therapy 06/02/2018 Telephone [facility] Physicians-Rheumatology [place] [address] [address] [place] [address] Social History Date Tobacco Use [...] as of this encounter Miscellaneous Notes * Addendum Note - Miguel Rosario RN - 06/15/2018 2:59 PM COOK ROAST Addended by: MIGUEL ROSARIO on: 06/15/2018 02:59 PM Modules accepted: Orders ROAST * Telephone Encounter - Miguel Rosario RN - 06/15/2018 2:54 PM COOK ROAST [facility] in [place], [place] called and lvm asking for a call back b/c [facility] needs a Rx. Called them and they gave the number to call [facility] [phone] and make sure they mail it to via [facility], [address] [place] [phone] attn: pharmacy Called [facility] and called in verbal Rx of Nucala with the shipping address in the comments. Gave verbal for 6 month supply. ROAST * Telephone Encounter - Miguel Rosario RN - 06/15/2018 12:30 PM COOK ROAST Received fax from Dr. Fernandez's office co-sign orders. Called via [place], [place] and confirmed fax number [phone] and faxed them Nucala infusion orders and ins approval letter. They will call pt once received to set up to for Nucala inj. Received fax confirmation Placing signed/co-signed orders of Nucala, ins approval and the signed form for the PA in [employer] ROAST * Telephone Encounter - Miguel Rosario RN - 06/15/2018 9:00 AM COOK ROAST Called [phone], Dr. Fernandez's office and lvm asking if they had co signed the orders and if they sent them to the infusion/surgery center already. Gave my call back number and our fax number b/c we wanted a copy of the orders with the co sign on it. Will await a call back/fax back ROAST * Telephone Encounter - Miguel Rosario RN - 06/10/2018 10:58 AM COOK ROAST [place] from Dr. Fernandez's office called and stated didn't think there would be any issues with Dr. Fernandez co-signing orders for Nucala. There fax number is [phone] attn Barrett Feldman filled out and signed Nucala orders and faxed them to be co-signed by Dr. Fernandez at fax number above. Will await a response. Received fax confirmation. Leaving in infusion orders for now ROAST * Telephone Encounter - Miguel Rosario RN - 06/10/2018 7:58 AM COOK ROAST [facility] Nucala was approved from 06-09-18 through for 100mg Nucala "It will be co-signed by Pedro Fernandez MD (radiographer, in [place] at [facility]). He wants to have it done at [facility]." Called via [facility] and found out the infusion center is also the surgery center. There fax number to send orders and PA approval is [phone]. They gave me Dr. Pedro Fernandez office ph number [phone]. I called and lvm asking for there fax number to send Nucala orders for doctor to co-sign. Will await call back ROAST * Telephone Encounter - Miguel Rosario RN - 06/09/2018 9:12 AM COOK ROAST Filled out PA for Nucala form and faxed it with CARMELINA note to [employer] at fax number [phone]. Received fax confirmation Placing in Pending PA folder for now ROAST * Telephone Encounter - Cat Chavez - 06/08/2018 11:54 AM COOK ROAST I called [email or web address] [phone] and spoke to Lanre. He stated that per the patient's plan, once the PA is approved, the medication is sent to a specialty pharmacy to be filled. Once filled it can be sent to whatever facility is going to provide the infusion. Larne stated he is going to get the paperwork together for the PA and will fax it over. ROAST * Telephone Encounter - Miguel Rosario RN - 06/08/2018 8:29 AM COOK ROAST Routing to Ghada to please initiate the form to pre-cert this Nucala infusion/inj ROAST * Telephone Encounter - Miguel Rosario RN - 06/02/2018 6:36 AM COOK ROAST ----- Message from Pedro Feldman MD sent at 05/29/2018 3:02 PM COOK ROAST ----- Miguel, Mr Diaz will be having his Nucala done close to home. It will be co-signed by Pedro Fernandez MD (radiographer, in [place] at [facility]). He wants to have it done at [facility]. Thanks, Pedro Feldman MD [place] ROAST in this encounter Plan of Treatment Not on fileas of this encounter Visit Diagnoses Not on filein this encounter
--- OUTSIDE RECORDS SUMMARY | 2018-07-22 15:16 | XMS REPORT | Encounter Summary ---
Author Author [facility] Organization [facility] Address Unknown Phone Unavailable Care Team Providers Care Charter Pilot Name Role Phone Cliff Lima MD Unavailable [...] Date Type Department Tyshawn Putnam MD [address] [facility] [address] [place] [address] 05/29/2018 Outpt. [facility] Antibiotic Physicians - Internal Therapy [facility] Level 4C [address] [place] [address] Social History Date Tobacco Use Types Packs/Day [...] Diagnosis VORICONAZOLE LC-MS/MS Routine 05/29/2018 10:05 AM SECURITY ASSISTANT HISTOPLASMA AG, SERUM Routine 05/29/2018 10:05 AM SECURITY ASSISTANT BUN Routine 05/29/2018 10:05 AM SECURITY ASSISTANT ALT (SGPT) Routine 05/29/2018 10:05 AM SECURITY ASSISTANT AST (SGOT) Routine 05/29/2018 10:05 AM SECURITY ASSISTANT POTASSIUM Routine 05/29/2018 10:05 AM SECURITY ASSISTANT ALK PHOS TOTAL Routine 05/29/2018 10:05 AM SECURITY ASSISTANT CREATININE Routine 05/29/2018 10:05 AM SECURITY ASSISTANT in this encounter Results * HISTOPLASMA AG, SERUM (05/29/2018 10:05 AM SECURITY ASSISTANT) Narrative Performed At Performing Organization Address City/State/Zipcode Phone Number IN CLINIC * VORICONAZOLE LC-MS/MS (05/29/2018 10:05 AM SECURITY ASSISTANT) Voriconazole, Serum 2.8 ug/mL OTHER OUTSIDE LAB Specimen Blood Narrative Performed At Performing Organization Address City/State/Zipcode Phone Number OTHER OUTSIDE LAB * BUN (05/29/2018 10:05 AM SECURITY ASSISTANT) Blood Urea Nitrogen 12 OTHER OUTSIDE LAB Specimen Blood - Blood Performing Organization Address City/[facility] Phone Number OTHER OUTSIDE LAB * ALT (SGPT) (05/29/2018 10:05 AM SECURITY ASSISTANT) ALT (SGPT) 16 OTHER OUTSIDE LAB Specimen Blood - Blood Performing Organization Address City/[facility] Phone Number OTHER OUTSIDE LAB * AST (SGOT) (05/29/2018 10:05 AM SECURITY ASSISTANT) AST (SGOT) 10 OTHER OUTSIDE LAB Specimen Blood - Blood Performing Organization Address City/[facility] Phone Number OTHER OUTSIDE LAB * POTASSIUM (05/29/2018 10:05 AM SECURITY ASSISTANT) Potassium 4.2 OTHER OUTSIDE LAB Specimen Blood - Blood Performing Organization Address City/[facility] Phone Number OTHER OUTSIDE LAB * ALK PHOS TOTAL (05/29/2018 10:05 AM SECURITY ASSISTANT) Alk Phosphatase 140 OTHER OUTSIDE LAB Specimen Blood - Blood Performing Organization Address City/[facility]/Independent IPcode Phone Number OTHER OUTSIDE LAB * CREATININE (05/29/2018 10:05 AM SECURITY ASSISTANT) Creatinine 0.6 OTHER OUTSIDE LAB Specimen Blood - Blood Narrative Performed At Performing Organization Address City/State/Zipcode Phone Number OTHER OUTSIDE LAB in this encounter Visit Diagnoses Not on filein this encounter
--- OUTSIDE RECORDS SUMMARY | 2018-07-22 15:16 | XMS REPORT | Encounter Summary ---
Author Author [facility] Organization [facility] Address Unknown Phone Unavailable Care Team Providers Care Mind Reader Name Role Phone Cliff Lima MD Unavailable [...] Type Department Pedro Feldman MD [address] [facility] [address] [place] [address] Medication Follow-up (Nucala) 04/27/[address] [facility] Physicians-Rheumatology [place] [address] [address] [place] [address] Social History Date Tobacco Use [...] Lukasz Rosario RN - 05/11/2018 2:19 PM FASHION MERCHANDISER Replied via [employer] ION MERCHANDISER * Telephone Encounter - Pedro Feldman MD - 05/06/2018 4:41 PM FASHION MERCHANDISER I placed the order for Mepolizimab. Let's talk about a prednisone taper at our next visit. Thanks, Pedro Feldman MD MS ION MERCHANDISER * Telephone Encounter - Lukasz Rosario RN - 05/06/2018 9:35 AM FASHION MERCHANDISER Pt responded via [employer], "Mila Feldman, I m sorry I didnt [...] Thank you Lanre" Routing to Dr. Feldman ION MERCHANDISER * Telephone Encounter - Lukasz Rosario RN - 04/30/2018 10:30 AM CDT Replying via [employer] * Telephone Encounter - Pedro Feldman MD [...] 04/28/2018 1:07 PM CDT Pt responded via [employer], "Mila Feldman. Please place the order. I'm [...] 3:21 PM CDT Sent to pt via [employer] * Telephone Encounter - Lukasz Rosario RN [...]
--- OUTSIDE RECORDS SUMMARY | 2018-07-22 15:16 | XMS REPORT | Clinical Summary ---
Author Author [facility] Organization [facility] Address Unknown Phone Unavailable Care Team Providers Care Shellfish Checker Name Role Phone PCP Unavailable Allergies Not [...]
--- OUTSIDE RECORDS SUMMARY | 2018-07-22 15:16 | XMS REPORT | Encounter Summary ---
Author Author [facility] Organization [facility] Address Unknown Phone Unavailable Care Team Providers Care Senior Net Engineer Name Role Phone Cliff Lima MD Unavailable [...] Date Type Department Pedro Feldman MD [address] [place] [address] 05/11/[address] [facility] Physicians-Rheumatology [facility] [place] [address] Social History Date Tobacco Use [...]
--- OUTSIDE RECORDS SUMMARY | 2018-07-22 15:16 | XMS REPORT | Encounter Summary ---
Author Author [facility] Organization [facility] Address Unknown Phone Unavailable Care Team Providers Care Allergy Specialist Name Role Phone Cliff Lima MD Unavailable Shari Lombardi RN Unavailable Unavailable Malika Rosario MD Unavailable Matt Raed MD Unavailable Tyshawn Putnam MD Unavailable Carlos [...] Feldman MD [address] [place] [address] Eosinophilic granulomatosis with polyangiitis (EGPA) (HCC) ( Primary Dx); Disseminated histoplasmosis; extermination supervisor systemic steroid user; Spinal cord injury at T8 level, subsequent encounter (HCC); Paraplegia (HCC); Uncomplicated asthma, unspecified asthma severity, unspecified whether persistent 05/29/2018 Office Visit [facility] Physicians-Rheumatology [facility] [id number] [place] [address] Social History Date Tobacco Use Types Packs/Day [...] Taken Vital Sign Reading 05/29/2018 2:42 PM ELECTRICAL LOGGING ENGINEER Blood Pressure 134/88 05/29/2018 2:42 PM ELECTRICAL LOGGING ENGINEER Pulse 117 05/29/2018 2:42 PM ELECTRICAL LOGGING ENGINEER Temperature 36.7 C (98.1 F) 05/29/2018 2:42 PM ELECTRICAL LOGGING ENGINEER Respiratory Rate 20 05/29/2018 2:42 PM ELECTRICAL LOGGING ENGINEER Oxygen Saturation 97% - Inhaled Oxygen - Concentration 05/29/2018 2:42 PM ELECTRICAL LOGGING ENGINEER Weight 88.9 kg (196 lb) 05/29/2018 2:42 PM ELECTRICAL LOGGING ENGINEER Height 177.8 cm (5' 10") 05/29/2018 2:42 PM ELECTRICAL LOGGING ENGINEER Body Mass Index 28.12 in this encounter [...] Pedro Feldman MD - 05/29/2018 2:30 PM ELECTRICAL LOGGING ENGINEER Follow-up for EGPA Patient Active Problem List Asthma Date Noted: 04/14/2018 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 Chest pain Date Noted: 09/08/2017 Neuropathic pain Date Noted: 09/03/2017 Impaired mobility and ADLs Date Noted: 08/28/2017 Neurogenic bowel Date Noted: 08/28/2017 Neurogenic bladder Date Noted: 08/28/2017 Spinal cord injury at T8 level ([facility]) Date Noted: 08/15/2017 Paraplegia ([facility]) Date Noted: 08/08/2017 Pseudomonas pneumonia ([facility]) Date Noted: 08/08/2017 Immunosuppression ([facility]) Date Noted: 08/08/2017 Compression fracture of thoracic spine, non-traumatic ([facility]) GERD (gastroesophageal reflux disease) History of histoplasmosis Osteopenia Sleep disorder Stage 3 chronic kidney disease ([facility]) Date Noted: 06/09/2017 Compression fracture Date Noted: 05/11/2015 Shortness of breath Date Noted: 05/11/2015 GI bleed Date Noted: 09/30/2014 Disseminated histoplasmosis Date Noted: 2014 Acute on chronic respiratory failure with hypoxia and hypercapnia ([facility]) Date Noted: 04/02/2014 Pancytopenia ([facility]) Date Noted: 03/31/2014 Osteoarthritis Date Noted: 03/21/2011 Paraesthesia of skin Date Noted: 03/19/2011 halfway current use of systemic steroids Date Noted: 03/19/2011 Joint pain Date Noted: 12/17/2010 Encounter for long-term (current) use of high-risk medication Date Noted: 12/17/2010 extermination supervisor (current) use of systemic steroids Date Noted: 12/17/2010 Vasculitis ([facility]) Date Noted: 12/17/2010 Peripheral edema Date Noted: 12/17/2010 Eosinophilic granulomatosis with polyangiitis (EGPA) ([facility]) Date Noted: 12/17/2010 BRIEF HISTORY: History of [...] continued to follow [place]. [place] voriconazole 200mg BID for histoplasmosis. He has anoutside airbrush artist, Dr. Fernandez,in [place], who is managing his asthma. His course [...] like to get the mepolizumab injections in [place], [place]. He notes that he is still having odd sleep patterns. He will sleep for 2-3 days at a time. He then has episodes where he is a week for a long period of time. He was given Ritalin by his primary care physician. He was seen by his systems analyst developer yesterday to see if he would be [...] + right eye vision changes (follows with staff therapist). No eye redness or pain. + eye [...] 16 ASSESSMENT: EGPA ([facility]) Disseminated histoplasmosis correction steroid use Asthma Compression fracture of spine Paraplegia related to compression fracture Mr Diaz comes for follow-up of eosinophilic granulomatosis with polyangiitis. Unfortunately, he has not had a chance to start mepolizumab as of yet. He would like to get it done close to home and so we will create some orders to send to his airbrush artist to cosign. We can consider tapering his [...] MD MS Director of Vasculitis Clinic [facility] Division of Allergy, Clinical Immunology and Rheumatology [address] [facility] [address] [place] [address] TRICAL LOGGING ENGINEER in this encounter Plan of Treatment Not on fileas of this encounter Visit Diagnoses Diagnosis Eosinophilic granulomatosis with polyangiitis (EGPA) (HCC) - Primary Disseminated histoplasmosis Histoplasmosis, unspecified without mention of manifestation extermination supervisor systemic steroid user Spinal cord injury at T8 level, subsequent encounter (HCC) Paraplegia (HCC) Paraplegia Uncomplicated asthma, unspecified asthma severity, unspecified whether persistent in this encounter
[2018-07-22 15:20] VITALS: BP 124/75
[2018-07-22] MEDS ORDERED: HYDROcodone/APAP 10 MG/325 MG (LORTAB) TAB PO ONE ×2 (15:42→15:45)
[2018-07-22 15:50] VITALS: BP 135/81
== END 2018-07-22 15:50 | disposition home or self-care (01) ==
LOC: SDC 11:20
PROVIDERS: ATTEND Surgery
DX: C44.329 Squamous cell carcinoma of skin of other parts of face (principal); Z11.2 Encounter for screening for other bacterial diseases; E11.40 Type 2 diabetes mellitus with diabetic neuropathy, unspecified; K21.9 Gastro-esophageal reflux disease without esophagitis; I10 Essential (primary) hypertension; E78.5 Hyperlipidemia, unspecified; G47.33 Obstructive sleep apnea (adult) (pediatric); J44.9 Chronic obstructive pulmonary disease, unspecified; M30.1 Polyarteritis with lung involvement [Churg-Strauss]; Z79.84 Long term (current) use of oral hypoglycemic drugs; Z79.899 Other long term (current) drug therapy; Z87.891 Personal history of nicotine dependence
CPT/HCPCS: 82962; 87081

== ENCOUNTER → 2018-07-27 | Outpatient (CLI) | payer OTHER | LOC: WOUNDCARE 13:01 | PROVIDERS: ATTEND Surgery | DX: L89.152 Pressure ulcer of sacral region, stage 2 (principal); L97.222 Non-pressure chronic ulcer of left calf with fat layer exposed; L98.491 Non-pressure chronic ulcer of skin of other sites limited to breakdown of skin; M30.1 Polyarteritis with lung involvement [Churg-Strauss]; G82.22 Paraplegia, incomplete | CPT/HCPCS: 11042; 87070; 87075; 87077; 87205 ==

== ENCOUNTER → 2018-08-03 | Outpatient (CLI) | payer OTHER | LOC: WOUNDCARE 12:57 | PROVIDERS: ATTEND Surgery | DX: L89.152 Pressure ulcer of sacral region, stage 2 (principal); L97.222 Non-pressure chronic ulcer of left calf with fat layer exposed; L98.491 Non-pressure chronic ulcer of skin of other sites limited to breakdown of skin; G82.22 Paraplegia, incomplete; M30.1 Polyarteritis with lung involvement [Churg-Strauss] | CPT/HCPCS: 99214 ==

== ENCOUNTER → 2018-08-17 | Outpatient (CLI) | payer OTHER | LOC: WOUNDCARE 12:46 | PROVIDERS: ATTEND Surgery | DX: I87.332 Chronic venous hypertension (idiopathic) with ulcer and inflammation of left lower extremity (principal); L97.222 Non-pressure chronic ulcer of left calf with fat layer exposed; L89.152 Pressure ulcer of sacral region, stage 2; G82.22 Paraplegia, incomplete; M30.1 Polyarteritis with lung involvement [Churg-Strauss] | CPT/HCPCS: 11042; 87070; 87205 ==

== ENCOUNTER → 2018-08-26 | Outpatient (CLI) | payer OTHER | LOC: LABNPT 11:00 | PROVIDERS: ATTEND Internal Medicine | DX: R19.7 Diarrhea, unspecified (principal) | CPT/HCPCS: 87324; 87449 ==

== ENCOUNTER 2018-09-01 12:12 | Outpatient (RCR) | payer MEDICARE ==
[2018-07-07 13:09] VITALS: BP 127/79
[2018-08-04 12:50] VITALS: BP 123/87
[~2018-09-01] VITALS: Ht 177.8 cm; Wt 80.8 kg
[~2018-09-01 12:12] MED LIST changes: +ACETAMINOPHEN 500 MG TAB (TYLENOL) PO PRN; +MEPOLIZUMAB 100 MG (NUCALA) VIAL SQ ONE; +MEPOLIZUMAB 100 MG (NUCALA) VIAL SQ SCH; +diphenhydrAMINE 50 MG/ML INJ (BENADRYL) IV PRN
[2018-09-01 12:45] VITALS: BP 123/78
[2018-09-01] MEDS ORDERED: MEPOLIZUMAB 100 MG (NUCALA) VIAL SQ SCH (13:45)
== END 2018-10-05 | disposition home or self-care (01) ==
LOC: SDC 12:12
PROVIDERS: ATTEND Internal Medicine
DX: M31.30 Wegener's granulomatosis without renal involvement (principal)
CPT/HCPCS: 96372

== ENCOUNTER → 2018-09-07 | Outpatient (CLI) | payer MEDICARE ==
[~2018-09-07] MED LIST changes: -ACETAMINOPHEN 500 MG TAB (TYLENOL) PO PRN; -MEPOLIZUMAB 100 MG (NUCALA) VIAL SQ ONE; -MEPOLIZUMAB 100 MG (NUCALA) VIAL SQ SCH; -diphenhydrAMINE 50 MG/ML INJ (BENADRYL) IV PRN
== END ==
LOC: WOUNDCARE 12:46
PROVIDERS: ATTEND Surgery
DX: I87.332 Chronic venous hypertension (idiopathic) with ulcer and inflammation of left lower extremity (principal); L97.222 Non-pressure chronic ulcer of left calf with fat layer exposed; G82.22 Paraplegia, incomplete; M30.1 Polyarteritis with lung involvement [Churg-Strauss]
CPT/HCPCS: 11042

== ENCOUNTER 2018-09-11 13:25 | Outpatient (RCR) | payer MEDICARE | END 2018-12-10 | disposition home or self-care (01) | LOC: CARD 13:25 | PROVIDERS: ATTEND Internal Medicine | DX: R55 Syncope and collapse (principal) | CPT/HCPCS: 93005 ==

== ENCOUNTER → 2018-09-14 | Outpatient (CLI) | payer MEDICARE | LOC: WOUNDCARE 12:59 | PROVIDERS: ATTEND Surgery | DX: I87.332 Chronic venous hypertension (idiopathic) with ulcer and inflammation of left lower extremity (principal); L97.222 Non-pressure chronic ulcer of left calf with fat layer exposed; G82.22 Paraplegia, incomplete; M30.1 Polyarteritis with lung involvement [Churg-Strauss] | CPT/HCPCS: 29581 ==

== ENCOUNTER → 2018-09-18 | Outpatient (CLI) | payer MEDICARE | LOC: WOUNDCARE 10:36 | PROVIDERS: ATTEND Surgery | DX: I87.332 Chronic venous hypertension (idiopathic) with ulcer and inflammation of left lower extremity (principal); L97.222 Non-pressure chronic ulcer of left calf with fat layer exposed; G82.22 Paraplegia, incomplete; M30.1 Polyarteritis with lung involvement [Churg-Strauss] | CPT/HCPCS: 29581 ==

== ENCOUNTER → 2018-09-22 | Outpatient (CLI) | payer MEDICARE | LOC: WOUNDCARE 12:56 | PROVIDERS: ATTEND Surgery | DX: L97.222 Non-pressure chronic ulcer of left calf with fat layer exposed (principal); I87.332 Chronic venous hypertension (idiopathic) with ulcer and inflammation of left lower extremity; M30.1 Polyarteritis with lung involvement [Churg-Strauss]; G82.22 Paraplegia, incomplete | CPT/HCPCS: 11042 ==

== ENCOUNTER → 2018-09-28 | Outpatient (CLI) | payer MEDICARE | LOC: WOUNDCARE 12:53 | PROVIDERS: ATTEND Surgery | DX: I87.332 Chronic venous hypertension (idiopathic) with ulcer and inflammation of left lower extremity (principal); L97.222 Non-pressure chronic ulcer of left calf with fat layer exposed; M30.1 Polyarteritis with lung involvement [Churg-Strauss]; G82.22 Paraplegia, incomplete | CPT/HCPCS: 15271 ==

== ENCOUNTER → 2018-10-06 | Outpatient (CLI) | payer MEDICARE | LOC: WOUNDCARE 13:31 | PROVIDERS: ATTEND Surgery | DX: I87.332 Chronic venous hypertension (idiopathic) with ulcer and inflammation of left lower extremity (principal); L97.222 Non-pressure chronic ulcer of left calf with fat layer exposed; M30.1 Polyarteritis with lung involvement [Churg-Strauss]; G82.22 Paraplegia, incomplete ==

== ENCOUNTER → 2018-10-14 | Outpatient (CLI) | payer MEDICARE | LOC: WOUNDCARE 10:50 | PROVIDERS: ATTEND Surgery | DX: I87.332 Chronic venous hypertension (idiopathic) with ulcer and inflammation of left lower extremity (principal); L97.222 Non-pressure chronic ulcer of left calf with fat layer exposed; M30.1 Polyarteritis with lung involvement [Churg-Strauss]; G82.22 Paraplegia, incomplete; S81.812D Laceration without foreign body, left lower leg, subsequent encounter | CPT/HCPCS: 15271 ==

== ENCOUNTER → 2018-10-19 | Outpatient (CLI) | payer MEDICARE ==
--- NOTE | 2018-10-19 14:52 | Diagnostic Imaging Report ---
INDICATION: Fall one week ago with swelling at the top of the foot. TIME OF EXAMINATION: 2:27 PM. FINDINGS: There is generalized demineralization of the left foot. The metatarsals and phalanges appear to be intact. The midfoot and hindfoot are unremarkable. No fracture is seen. There is moderate soft tissue swelling along the dorsum of the foot. IMPRESSION: Dorsal soft tissue swelling and demineralization. No acute bony abnormality is detected. Dictated by: Dictated on workstation # [id number]
== END ==
LOC: RAD 14:15
PROVIDERS: ATTEND Surgery
DX: S92.202A Fracture of unspecified tarsal bone(s) of left foot, initial encounter for closed fracture (principal); S81.812A Laceration without foreign body, left lower leg, initial encounter; M81.0 Age-related osteoporosis without current pathological fracture; L97.222 Non-pressure chronic ulcer of left calf with fat layer exposed; I87.332 Chronic venous hypertension (idiopathic) with ulcer and inflammation of left lower extremity; M30.1 Polyarteritis with lung involvement [Churg-Strauss]; G82.22 Paraplegia, incomplete
CPT/HCPCS: 73630

== ENCOUNTER → 2018-10-19 | Outpatient (CLI) | payer MEDICARE | LOC: WOUNDCARE 13:04 | PROVIDERS: ATTEND Surgery | DX: S92.202A Fracture of unspecified tarsal bone(s) of left foot, initial encounter for closed fracture (principal); S81.812A Laceration without foreign body, left lower leg, initial encounter; I87.332 Chronic venous hypertension (idiopathic) with ulcer and inflammation of left lower extremity; L97.222 Non-pressure chronic ulcer of left calf with fat layer exposed; M30.1 Polyarteritis with lung involvement [Churg-Strauss]; G82.22 Paraplegia, incomplete | CPT/HCPCS: 15271 ==

== ENCOUNTER → 2018-10-26 | Outpatient (CLI) | payer MEDICARE | LOC: WOUNDCARE 12:47 | PROVIDERS: ATTEND Surgery | DX: I87.332 Chronic venous hypertension (idiopathic) with ulcer and inflammation of left lower extremity (principal); L97.222 Non-pressure chronic ulcer of left calf with fat layer exposed; M30.1 Polyarteritis with lung involvement [Churg-Strauss]; G82.22 Paraplegia, incomplete; S81.812A Laceration without foreign body, left lower leg, initial encounter; L92.8 Other granulomatous disorders of the skin and subcutaneous tissue | CPT/HCPCS: 15275; 17250 ==

== ENCOUNTER → 2018-11-02 | Outpatient (CLI) | payer MEDICARE | LOC: WOUNDCARE 12:55 | PROVIDERS: ATTEND Surgery | DX: I87.332 Chronic venous hypertension (idiopathic) with ulcer and inflammation of left lower extremity (principal); L97.222 Non-pressure chronic ulcer of left calf with fat layer exposed; M30.1 Polyarteritis with lung involvement [Churg-Strauss]; G82.22 Paraplegia, incomplete; S81.812A Laceration without foreign body, left lower leg, initial encounter | CPT/HCPCS: 11042 ==

== ENCOUNTER → 2018-11-05 | Outpatient (CLI) | payer MEDICARE ==
[2018-11-05 15:31] LABS: ABG BASE EXCESS 8.3 MMOL/L (-2.5-2.5); ABG OXYGEN SATURATION 97 % (94-100); ABG PCO2 48 MMHG (35-45); ABG PH 7.44 (7.37-7.43); ABG PO2 76 MMHG (79-93); ABG TCO2 34.3 MMOL/L (21.0-31.0)
[2018-11-05 15:32] LABS: ALLENS TEST POSITIVE; PATIENT TEMP 97.1; VENTILATOR NO
[2018-11-05 15:56] LABS: BASOPHILS % (AUTO) 0 % (0-10); EOSINOPHILS % (AUTO) 0 % (0-10); HEMATOCRIT 37 % (40-54); LYMPHOCYTES # (AUTO) 0.8 X 10^3 (1.0-4.0); LYMPHOCYTES % (AUTO) 7 % (12-44); MEAN CORPUSCULAR HEMOGLOBIN 28 PG (25-34); MEAN CORPUSCULAR HGB CONC 29 G/DL (32-36); MEAN CORPUSCULAR VOLUME 94 FL (80-99); MEAN PLATELET VOLUME 8.5 FL (7.4-10.4); MONOCYTES # (AUTO) 0.5 X 10^3 (0.0-1.0); MONOCYTES % (AUTO) 5 % (0-12); NEUTROPHILS # (AUTO) 9.5 X 10^3 (1.8-7.8); NEUTROPHILS % (AUTO) 88 % (42-75); PLATELET COUNT 260 10^3/uL (130-400); RED CELL DISTRIBUTION WIDTH 15.7 % (10.0-14.5); WHITE BLOOD COUNT 10.8 10^3/uL (4.3-11.0)
[2018-11-05 16:14] LABS: ALANINE AMINOTRANSFERASE 17 U/L (0-55); ALBUMIN 3.4 GM/DL (3.2-4.5); ALKALINE PHOSPHATASE 203 U/L (40-136); AMMONIA 31 UMOL/L (11-32); BILIRUBIN,TOTAL 0.2 MG/DL (0.1-1.0); BUN/CREATININE RATIO 32; CALCIUM 8.6 MG/DL (8.5-10.1); CARBON DIOXIDE 32 MMOL/L (21-32); CHLORIDE 102 MMOL/L (98-107); CREATININE SERUM 0.59 MG/DL (0.60-1.30); GFR ESTIMATED > 60; GLUCOSE 95 MG/DL (70-105); POTASSIUM 4.6 MMOL/L (3.6-5.0); SODIUM 142 MMOL/L (135-145); TOTAL PROTEIN 6.2 GM/DL (6.4-8.2)
[2018-11-05 16:25] LABS: BAND NEUTROPHILS 0 %; BASOPHILS % (MANUAL) 0 %; EOSINOPHILS % (MANUAL) 3 %; LYMPHOCYTES % (MANUAL) 13 %; MONOCYTES % (MANUAL) 9 %; NEUTROPHILS % (MANUAL) 75 %; RBC MORPH NORMAL
[2018-11-05 16:35] LABS: FREE T4 (FREE THYROXINE) 0.77 NG/DL (0.70-1.48)
== END ==
LOC: RT 14:47
PROVIDERS: ATTEND Internal Medicine Critical Care Medicine
DX: J96.20 Acute and chronic respiratory failure, unspecified whether with hypoxia or hypercapnia (principal); G47.10 Hypersomnia, unspecified; R53.83 Other fatigue; G47.33 Obstructive sleep apnea (adult) (pediatric); M30.1 Polyarteritis with lung involvement [Churg-Strauss]; B39.4 Histoplasmosis capsulati, unspecified; R91.1 Solitary pulmonary nodule; G82.20 Paraplegia, unspecified; J45.998 Other asthma; R06.00 Dyspnea, unspecified; R09.02 Hypoxemia
CPT/HCPCS: 36415; 80053; 82140; 82533; 82805; 83605; 84439; 84443; 84481; 85007; 85027

== ENCOUNTER → 2018-11-09 | Outpatient (CLI) | payer MEDICARE | LOC: WOUNDCARE 13:00 | PROVIDERS: ATTEND Surgery | DX: I87.332 Chronic venous hypertension (idiopathic) with ulcer and inflammation of left lower extremity (principal); L97.222 Non-pressure chronic ulcer of left calf with fat layer exposed; M30.1 Polyarteritis with lung involvement [Churg-Strauss]; G82.22 Paraplegia, incomplete; S81.812A Laceration without foreign body, left lower leg, initial encounter | CPT/HCPCS: 99212 ==

== ENCOUNTER 2019-01-08 12:21 | Outpatient (RCR) | payer MEDICARE ==
[2018-10-14 12:30] VITALS: BP 112/68
[2018-10-14] MEDS: MEPOLIZUMAB 100 MG (NUCALA) VIAL SQ SCH (12:54)
[2018-11-11 12:40] VITALS: BP 134/72
[2018-11-11] MEDS: MEPOLIZUMAB 100 MG (NUCALA) VIAL SQ SCH (13:12)
[2018-12-09 13:45] VITALS: BP 121/86
[2018-12-09] MEDS: MEPOLIZUMAB 100 MG (NUCALA) VIAL SQ SCH (14:09)
[~2019-01-08] VITALS: Ht 177.8 cm; Wt 80.8 kg
[~2019-01-08 12:21] MED LIST changes: +ACETAMINOPHEN 500 MG TAB (TYLENOL) PO PRN; +MEPOLIZUMAB 100 MG (NUCALA) VIAL SQ SCH; +diphenhydrAMINE 50 MG/ML INJ (BENADRYL) IV PRN
[2019-01-08] MEDS ORDERED: MEPOLIZUMAB 100 MG (NUCALA) VIAL SQ SCH (12:45)
[2019-01-08 15:47] VITALS: BP 115/81
== END 2019-01-12 | disposition home or self-care (01) ==
LOC: SDC 12:21
PROVIDERS: ATTEND Internal Medicine
DX: M31.30 Wegener's granulomatosis without renal involvement (principal)
CPT/HCPCS: 96372

== ENCOUNTER 2019-02-10 13:05 | Outpatient (RCR) | payer MEDICARE ==
[2018-12-09 13:45] VITALS: BP 121/86
--- NOTE | 2018-12-14 15:21 | Physician Query-Final Dx ---
STEPHANY MARCUM 12/14/18 1521: Final Diagnosis Give Final Diagnosis Please give Final Diagnosis Dr Adam Please give a diagnosis for the B12 injection thank you ERIC ADAM MD 12/20/18 1815: Final Diagnosis Give Final Diagnosis B12 deficiency STEPHANY MARCUM Dec 14, 2018 15:21 ERIC ADAM MD Dec 20, 2018 18:15
[2019-01-08] MEDS: CYANOCOBALAMIN INJ 1000 MCG/ML IM SCH (12:53)
[2019-01-08 15:10] VITALS: BP 115/81
[~2019-02-10] VITALS: Ht 177.8 cm; Wt 80.8 kg
[~2019-02-10 13:05] MED LIST changes: -BUME2TAB3 PO; +BUME2TAB7 PO; +CYANOCOBALAMIN INJ 1000 MCG/ML IM ONE
[2019-02-10] MEDS ORDERED: MEPOLIZUMAB 100 MG (NUCALA) VIAL SQ SCH (13:30)
[2019-02-10] MEDS: CYANOCOBALAMIN INJ 1000 MCG/ML IM SCH (13:43)
[2019-02-10 13:50] VITALS: BP 139/84
== END 2019-03-09 | disposition home or self-care (01) ==
LOC: SDC 13:05
PROVIDERS: ATTEND Internal Medicine
DX: E53.8 Deficiency of other specified B group vitamins (principal)
CPT/HCPCS: 96372

== ENCOUNTER 2019-02-23 13:39 | Outpatient (RCR) | payer MEDICARE ==
[~2019-02-23 13:39] MED LIST changes: -ACETAMINOPHEN 500 MG TAB (TYLENOL) PO PRN; -CYANOCOBALAMIN INJ 1000 MCG/ML IM ONE; -MEPOLIZUMAB 100 MG (NUCALA) VIAL SQ SCH; -diphenhydrAMINE 50 MG/ML INJ (BENADRYL) IV PRN
== END 2019-04-21 | disposition home or self-care (01) ==
PROVIDERS: ATTEND Internal Medicine
DX: G82.22 Paraplegia, incomplete (principal); J44.9 Chronic obstructive pulmonary disease, unspecified; F32.9 Major depressive disorder, single episode, unspecified; I10 Essential (primary) hypertension; I48.91 Unspecified atrial fibrillation; M30.1 Polyarteritis with lung involvement [Churg-Strauss]; Z99.81 Dependence on supplemental oxygen; Z79.52 Long term (current) use of systemic steroids

== ENCOUNTER 2019-03-11 09:38 | Outpatient (RCR) | payer MEDICARE | END 2019-06-09 | disposition home or self-care (01) | LOC: LAB 09:38 | PROVIDERS: ATTEND Internal Medicine | DX: R19.7 Diarrhea, unspecified (principal); T36.95XA Adverse effect of unspecified systemic antibiotic, initial encounter | CPT/HCPCS: 87324; 87449 ==

== ENCOUNTER 2019-05-14 13:11 | Outpatient (RCR) | payer MEDICARE ==
[2019-03-16 13:55] VITALS: BP 105/64
[2019-03-16] MEDS: CYANOCOBALAMIN INJ 1000 MCG/ML IM SCH (14:32)
[2019-03-16] MEDS: MEPOLIZUMAB 100 MG (NUCALA) VIAL SQ SCH (14:37)
[2019-04-15 13:20] VITALS: BP 129/79
[2019-04-15] MEDS: CYANOCOBALAMIN INJ 1000 MCG/ML IM SCH (13:44)
[2019-04-15] MEDS: MEPOLIZUMAB 100 MG (NUCALA) VIAL SQ SCH (13:44)
[~2019-05-14] VITALS: Wt 102.5 kg
[~2019-05-14 13:11] MED LIST changes: +ACETAMINOPHEN 500 MG TAB (TYLENOL) PO PRN; +CYANOCOBALAMIN INJ 1000 MCG/ML ONE; +diphenhydrAMINE 50 MG/ML INJ (BENADRYL) IV PRN
[2019-05-14] MEDS ORDERED: CYANOCOBALAMIN INJ 1000 MCG/ML ONE (13:49)
[2019-05-14] MEDS: MEPOLIZUMAB 100 MG (NUCALA) VIAL SQ SCH (13:55)
[2019-05-14] MEDS: CYANOCOBALAMIN INJ 1000 MCG/ML IM SCH (13:55)
[2019-05-14 14:06] VITALS: BP 101/69
== END 2019-06-14 | disposition home or self-care (01) ==
LOC: SDC 13:11
PROVIDERS: ATTEND Internal Medicine
DX: E53.8 Deficiency of other specified B group vitamins (principal)
CPT/HCPCS: 90471; 90472; 96372

== ENCOUNTER 2019-08-16 13:09 | Outpatient (RCR) | payer MEDICARE ==
[2019-07-08 13:50] VITALS: BP 111/80
[2019-07-08] MEDS: CYANOCOBALAMIN INJ 1000 MCG/ML IM SCH (14:21)
[2019-07-08] MEDS: MEPOLIZUMAB 100 MG (NUCALA) VIAL SQ SCH (14:21)
[~2019-08-16 13:09] MED LIST changes: +ACHYD1T PO; -CYANOCOBALAMIN INJ 1000 MCG/ML ONE; -HYDR-3820 PO; +HYDROCORTISONE 100 MG/2 ML (Solu-CORTEF) VIAL ONE
[2019-08-16] MEDS ORDERED: ACETAMINOPHEN 500 MG TAB (TYLENOL) PO PRN (13:14)
[2019-08-16] MEDS ORDERED: CYANOCOBALAMIN INJ 1000 MCG/ML IM SCH (13:14)
[2019-08-16] MEDS ORDERED: MEPOLIZUMAB 100 MG (NUCALA) VIAL SQ SCH (13:14)
[2019-08-16] MEDS ORDERED: diphenhydrAMINE 50 MG/ML INJ (BENADRYL) IV PRN (13:14)
[2019-08-16] MEDS: CYANOCOBALAMIN INJ 1000 MCG/ML IM SCH (13:31)
[2019-08-16] MEDS: MEPOLIZUMAB 100 MG (NUCALA) VIAL SQ SCH (13:38)
[2019-08-16 13:45] VITALS: BP 106/68
== END 2019-10-06 | disposition home or self-care (01) ==
LOC: SDC 13:09
PROVIDERS: ATTEND Internal Medicine
DX: E53.8 Deficiency of other specified B group vitamins (principal)
CPT/HCPCS: 96372

== ENCOUNTER 2019-10-14 13:08 | Outpatient (RCR) | payer MEDICARE ==
[~2019-10-14] VITALS: Ht 177.8 cm; Wt 73.5 kg
[~2019-10-14 13:08] MED LIST changes: -ACETAMINOPHEN 500 MG TAB (TYLENOL) PO PRN; -HYDROCORTISONE 100 MG/2 ML (Solu-CORTEF) VIAL ONE; -diphenhydrAMINE 50 MG/ML INJ (BENADRYL) IV PRN
[2019-10-14] MEDS ORDERED: MEPOLIZUMAB 100 MG (NUCALA) VIAL SQ SCH (13:15)
[2019-10-14] MEDS ORDERED: diphenhydrAMINE 50 MG/ML INJ (BENADRYL) IV PRN (13:16)
[2019-10-14] MEDS ORDERED: ACETAMINOPHEN 500 MG TAB (TYLENOL) PO PRN (13:16)
[2019-10-14] MEDS ORDERED: CYANOCOBALAMIN INJ 1000 MCG/ML IM SCH (13:30)
[2019-10-14 13:35] VITALS: BP 104/53
--- NOTE | 2019-10-14 13:50 | NUR ---
This nurse went to patients van to give injections. Cleared with Cameron Bronson Pharmacist before giving injections.
[2019-12-06] MEDS ORDERED: EMPA25TA PO (14:18)
[2019-12-06] MEDS ORDERED: DILT240C91 PO (14:18)
[2019-12-06] MEDS ORDERED: RIVA20TA PO (14:18)
[2019-12-06] MEDS ORDERED: HYDR-3820 PO (14:18)
[2019-12-06] MEDS ORDERED: LISI-552 PO (14:18)
[2019-12-06] MEDS ORDERED: METH20TA34 PO (14:18)
[2019-12-06] MEDS ORDERED: COLE1TAB PO (14:18)
[2019-12-06] MEDS ORDERED: GUAI600T43 PO (14:20)
[2019-12-06] MEDS ORDERED: POLY17PO6 PO (14:20)
[2019-12-06] MEDS ORDERED: DIPH25CA79 PO (14:20)
[2019-12-06] MEDS ORDERED: MULT-1136 PO (14:21)
[2019-12-06] MEDS ORDERED: PRED5TAB PO (14:22)
[2019-12-10] MEDS ORDERED: ENOX100D4 SC (10:30)
[2019-12-10] MEDS ORDERED: TMSL.4C PO (10:30)
[2019-12-10] MEDS ORDERED: ANID100V2 IV (10:30)
[2019-12-10] MEDS ORDERED: CEFA2PLA9 IV (10:30)
[2019-12-10] MEDS ORDERED: METR500P4 IV (10:30)
[2019-12-10] MEDS ORDERED: METO-333 PO (10:30)
[2019-12-10] MEDS ORDERED: RIVA20TA PO (10:30)
== END 2020-01-12 | disposition home or self-care (01) ==
LOC: SDC 13:08
PROVIDERS: ATTEND Internal Medicine
DX: E53.8 Deficiency of other specified B group vitamins (principal); M30.0 Polyarteritis nodosa; L92.8 Other granulomatous disorders of the skin and subcutaneous tissue
CPT/HCPCS: 96372

== ENCOUNTER → 2019-11-25 | Outpatient (CLI) | payer MEDICARE ==
[~2019-11-25] MED LIST changes: +CATHETER FLUSH 10 ML SYR IV PRN; +HOLD METFORMIN - RECEIVED CONTRAST 20 ML VIAL IV SCH; +IOHEXOL 350 MG/ML 100 ML (OMNIPAQUE 350) VIAL IV ONE; +NS 100 ML (IVPB) BAG IV ONE
[2019-11-25 13:32] LABS: CREATININE SERUM 1.02 MG/DL (0.60-1.30); GFR ESTIMATED > 60
[2019-11-25 13:33] LABS: BUN/CREATININE RATIO 31
--- NOTE | 2019-11-25 15:12 | Diagnostic Imaging Report ---
EXAMINATION: CT Chest with intravenous contrast. TECHNIQUE: Multiple contiguous axial images were obtained through the chest after the uneventful administration of intravenous contrast. All CT scans use one or more of the following dose optimizing techniques: automated exposure control, MA and/or KvP adjustment based on a patient size and exam type, or iterative reconstruction. HISTORY: Shortness of breath. COMPARISON: 07/22/2017. FINDINGS: There is segmental collapse of the posterior segment of the right upper lobe. Right hemidiaphragm is elevated. There is overlying atelectasis. There is a 2.1 x 1.3 cm area of consolidation versus a nodule in the right lower lobe medial basilar segment. No pleural effusion. No pneumothorax. Heart size is normal. There are no coronary artery calcifications. No pericardial effusion. Aorta is normal in caliber. There is no axillary or supraclavicular lymphadenopathy. There is no mediastinal lymphadenopathy. Limited views of the upper abdomen show an inferior vena cava filter. There are no suspicious osseus lesions. There has been vertebroplasty of multiple thoracic vertebrae. There is new vertebra plana above the uppermost vertebroplasty with focal kyphosis at this level and retropulsion resulting in at least moderate spinal canal stenosis. This is at either T7 or T8. There are old right-sided rib fractures. IMPRESSION: 1. New vertebra plana of either T7 or T8 with retropulsion and focal kyphosis resulting in at least moderate spinal canal stenosis. 2. Consolidation versus a nodule in the right lower lobe, correlate for evidence of infection and recommend a short-term follow-up to confirm resolution. 3. Elevated right hemidiaphragm with posterior segmental collapse of the right upper lobe. Dictated by: Dictated on workstation # [id number]
== END ==
LOC: RAD 12:59
PROVIDERS: ATTEND Nurse Practitioner Family
DX: R91.8 Other nonspecific abnormal finding of lung field (principal); M48.04 Spinal stenosis, thoracic region; M40.204 Unspecified kyphosis, thoracic region
CPT/HCPCS: 36415; 71260; 82565; 84520